=== PATIENT | female | born 1955 | race Caucasian/White ===

== ENCOUNTER → 2020-06-13 | Outpatient (CLI) | payer MEDICAID, SELFPAY | END | disposition home or self-care (01) | LOC: MTDU 06-14 13:03 | PROVIDERS: PCP Family Medicine; Referring Provider Family Medicine; Visit Provider Family Medicine | DX: Z20.828 Contact with and (suspected) exposure to other viral communicable diseases (principal) | CPT/HCPCS: 87635; C9803; U0003 ==

== ENCOUNTER 2020-10-30 17:16 | Observation (INO) | payer MEDICAID, SELFPAY ==
--- NOTE | 2020-10-24 12:29 | EKG12_ITS ---
Test Reason : PRE SURGERY Blood Pressure : / mmHG Vent. Rate : 092 BPM Atrial Rate : 092 BPM P-R Int : 150 ms QRS Dur : 108 ms QT Int : 376 ms P-R-T Axes : 072 082 078 degrees QTc Int : 464 ms Normal sinus rhythm [id number] Confirmed by RAYO FERNANDEZ, ADIS ([id number]), editorial specialist DAVID CHAPIN ([id number]) on 10/25/2020 1:53:34 PM Referred By: Jules Hess Confirmed By:ADIS CADE MD
[2020-10-24 12:31] LABS: Hematocrit 41.6 % (37-47); Hemoglobin 13.6 g/dL (12.0-15.0); Mean Corp Hgb Conc 32.7 g/dL (32-36); Mean Corpuscular Hgb 31.4 pg (27.0-32.0); Mean Corpuscular Volume 96.1 fL (81-99); Mean Platelet Vol. 8.4 fl (6.2-12.0); Platelet Count 336 K/mm3 (150-450); RBC Distribution Width CV 13.3 % (11.6-14.6); RBC Distribution Width SD 47.2 fl (35.1-43.9); Red Blood Count 4.33 M/mm3 (4.2-5.4); White Blood Count 7.4 K/mm3 (4.4-11.0)
[2020-10-24 13:23] LABS: Anion Gap 6 (5-15); BUN 14 mg/dL (7-18); BUN/Creat Ratio 16.2 RATIO (10-20); Calcium,Total 9.5 mg/dL (8.5-10.1); Chloride 106 mmol/L (98-107); Creatinine, Serum 0.86 mg/dL (0.55-1.02); EST Glomerular Filtration Rate 70 mL/min (>60); Est Glom Filt Rate - Afr Amer 85 mL/min (>60); Glucose 104 mg/dL (74-106); Potassium 3.7 mmol/L (3.5-5.1); Sodium Level 140 mmol/L (136-145)
[2020-10-30] VITALS (31 sets, daily range): BP systolic 114–174; BP diastolic 60–96; PULSE 67–91; RESP 12–20; TEMP 36.3–37.8; O2SAT 85–97; BMI 25.8
[2020-10-30] MEDS: Lactated Ringers 1,000 ML 100 ML IV ×2 (07:09→10:30)
[2020-10-30] MEDS: Lidocaine 1% /Epi 1:100 (20ml) 20 ML Vial ×2 (07:34→11:30)
[2020-10-30] MEDS: Oxymetazoline 0.05% 1 SPRAY SPRAY.BTL 15 SPRAY ×2 (07:45→09:30)
--- NOTE | 2020-10-30 08:30 | ETH_PTH ---
PATIENT: SULLY BORGES LOC: MS3 U#:[id number] AGE/SX: 65/F ROOM: ME315 RE10/30/[address]: Dr. Jj Abernathy MD : [id number] BED: 1 DIS: 10/31/2020 SPEC #: [id number] RECD: 10/30/20 13:01 STATUS: JEOVANNY DOLORES #: [id number] ABBI: 10/30/20 08:[address]: Hai Hess DEPT: SURGICAL PATHOLOGY RECD BY: Anyi Rebolledo ENTERED: 10/30/20 13:34 SP TYPE: ETH TISS OTHR DR: Dr. Vasquez Antoine MD Tissues: A - Ethmoid sinus, NOS B - Ethmoid sinus, NOS Procedures: Decalcification bone/plaque Surgery Specimen Level IV HEADER OPERATION: Open septorhinoplasty, functional endoscopic sinus surgery PRE-OP DIAGNOSIS: Chronic sinusitis, allergic rhinitis, nasal congestion, deviated nasal septum, hypertrophy of nasal turbinates TISSUE SUBMITTED: A - Right contents maxillary and ethmoid sinus, B - Left contents maxillary and ethmoid sinus MICROSCOPIC DIAGNOSIS A. Right maxillary and ethmoid sinus contents: Fragments of respiratory mucosa including turbinate with chronic inflammation and squamous metaplasia and bone. B. Left maxillary and ethmoid sinus contents: Fragments of respiratory mucosa including turbinate with chronic inflammation and bone. JOSEPH:mihcael 11/02/2020 MICROSCOPIC DESCRIPTION Slides are reviewed. GROSS DESCRIPTION A - Received in fixative is one container labeled with the patient's name and designated contents of right maxillary and ethmoid sinus. The specimen consists of multiple fragments of hemorrhagic soft tissue mixed with fragments of bone and including mucosal tissue consistent with turbinate that in aggregate measure 7.5 x 3 x 0.3 cm. The entire specimen is submitted in three cassettes after decalcification. B - Received in fixative is one container labeled with the patient's name and designated contents of left maxillary and ethmoid sinus. The specimen consists of multiple fragments of hemorrhagic soft tissue mixed with fragments of bone and including mucosal tissue consistent with turbinate that in aggregate measure 5 x 3 x 0.3 cm. The entire specimen is submitted in two cassettes after decalcification. / JOSEPH:michael 10/30/20 TC:3 CPT: 59471 x2, 02412 x2
--- NOTE | 2020-10-30 08:33 | PCM.DC ---
You will use the following diet at home:: No restrictions Your food should be the consistency of: Regular Discharge Activity: May not drive while taking narcotic pain medications. Call your doctor if your incision/area has: Increased Pain/ Swelling Additional Dressing/Incision Instructions:: irrigate your nose with saline spray [address] mupirocin ointment on your incision and in your nose twice daily. Allergies/Adverse Reactions: Allergies codeine Allergy (Verified 10/30/20 06:52) Heart Attack Sx HEART ATTACK SYMPTOMS levofloxacin [From Levaquin] Allergy (Verified 10/23/20 09:56) Anaphylaxis Penicillins [PCN] Allergy (Verified 10/23/20 09:56) Hives sulfamethoxazole [From Bactrim] Allergy (Verified 10/23/20 09:56) Anaphylaxis tetracycline Allergy (Verified 10/23/20 09:56) Vomiting trimethoprim [From Bactrim] Allergy (Verified 10/23/20 09:56) Anaphylaxis Medications to take at Discharge ALPRAZolam [Xanax] 1 mg PO TID PRN PRN 10/23/20 Albuterol Aerosols [Ventolin Aerosols] 2.5 mg INHALATION Q6HWA.RT 10/23/20 Albuterol Inhaler [Ventolin Hfa (SP)] 1 - 2 puff INHALATION Q6H PRN PRN 10/23/20 Amlodipine Besylate [Norvasc] 10 mg PO DAILY 10/23/20 Montelukast Sodium [Singulair] 10 mg PO DAILY 10/23/20 Sodium Chloride [Saline Nose [place]] 45 ml NS BID 10/23/20 cycloBENZAPRine HCl [Flexeril] 10 mg PO TID PRN PRN 10/23/20 Primary Care Physician: Vasquez Antoine MD [Primary Care Provider] - Test Results: Test results from this visit will be discussed in further detail at your follow-up appointment, if applicable. Please Follow Up With: Jules Hess MD When: 1 week
[2020-10-30] MEDS: Mupirocin Ointment 22gm Tube 1 APPLIC (09:50)
--- NOTE | 2020-10-30 12:34 | PCM.OPRPT ---
Problem List (1) Chronic pansinusitis Status: Chronic (2) Deviated nasal septum Status: Chronic (3) Nasal turbinate hypertrophy Status: Chronic (4) Nasal valve collapse Status: Chronic (5) Nasal polyps Status: Chronic Report of Operation Date of Procedure: 10/30/20 Pre-Operative Diagnosis: 1. chronic pansinusitis. 2. sinonasal polyposis. 3. nasal septal deviation. 4. aquired nasal deformity. 5. internal nasal valve collapse, right and left. 6. inferior turbinate hypertrophy, right and left Post-Operative Diagnosis: 1. chronic pansinusitis. 2. sinonasal polyposis. 3. nasal septal deviation. 4. aquired nasal deformity. 5. internal nasal valve collapse, right and left. 6. inferior turbinate hypertrophy, right and left Surgery/Procedure Performed:: 1. endoscopic maxillary antrostomy with removal of contents, right and left. 2. endoscopic total ethmoidecotmy, right and left. 3. endoscopic sphenoidotomy with removal of contents, right and left. 4. endoscopic frontal sinus exploration removal of contents, right and left. 5. open septorhinoplasty. 6. submucous resection inferior turbinates, right and left. 7. correction internal nasal valve collapse, right and left Type of Anesthesia:: General Description of Procedure: On the day of the procedure, after appropriate informed consent was obtained, the patient was brought to the operating room and placed in a supine position on the operating room table. The patient was placed under general endotracheal anesthesia by the anesthesiologist. The endotracheal tube was secured. image guidance navigation was set up on the face and accuracy was confirmed. the nose was injected with lidocaine/epinephrine and decongested with oxymetazoline-soaked pledgets. the nose was injected with 1% lidocaine with epinephrine. The face was prepped and draped in sterile fashion. An inverted-V columellar incision was made with a [place] blade. This traversed into the left and right marginal incisions in the nose. It was opened with three-point retraction and an Iris scissors. The left and right lower lateral cartilages were skeletonized. given the patient's prior operation, this was a very cumbersome dissection through extensive scarring. This was taken to the left scroll region and the left upper lateral cartilages were skeletonized as was the right scroll region and right upper lateral cartilage. the upper lateral cartilages were encased in scar. The anterior septal angle was destroyed by her prior surgery and trauma. The remainder of her septum was carefully dissected using the [place]-tip Bovie. The submucoperichondrial flaps were created with the [place] elevator, first on the left and then the right posteriorly to the bony cartilaginous junction and inferiorly to the maxillary crest. Anteriorly, the patient had a very severe left to mid septal deviation. It was nearly occluding the nasal airway. A [place] elevator was used to disarticulate the bony cartilaginous junction. A #15 blade was used to disarticulate the left and then right upper lateral cartilage which significantly destabilized the nose. A 1 cm strut was maintained off the keystone area which was still stable and the [place] elevator and a D-knife were used to remove the remainder of the septum. This was reshaped and sutured to a PDS plate and fashioned to perform an anterior septal reconstruction and saved for future use. The deviated portions of the perpendicular plate of the ethmoid bone and vomer were removed using a Geovani-Hair. The head of the right and left inferior turbinates were injected with 1% lidocaine with epinephrine. The head of the left inferior turbinate was incised with a #15 blade. This was dissected submucosally using the Lavern elevator, reduced using suction electrocautery, and outfractured using a Boies elevator. Similarly, on the right, the head of the right inferior turbinate was incised with a #15 blade. This was dissected submucosally using a Lavern elevator, reduced using suction electrocautery, and outfractured using a Boies elevator. the anterior septal reconstruction was placed as a left-sided internal tape controlled machine stitcher graft. This was sutured between the nasal septum and right upper lateral cartilage using 4-0 PDS. This was also sutured to the maxillary crest in multiple points using 4-0 PDS. Additionally, a 2 mm x 1 cm internal tape controlled machine stitcher graft was placed on the right side and sutured with 4-0 PDS. At this point, the nose was significantly re-stabilized. Multiple dermal sutures were used to refashion the nasal tip for stability to prevent collapse and a 5 mm x 2 mm columellar strut was used to prevent collapse. The submucoperichondrial flaps were closed with numerous 4-0 chromic sutures several incorporating the anterior septal reconstruction. The inverted-V columellar incision was closed with 7-0 Vicryl and the marginal incisions with interrupted 4-0 chromic. Hutson splints were placed and a dorsal nasal splint was placed. The nose was irrigated with normal saline and the table was rotated 90 degrees toward the anesthesiologist. the zero degree endoscope was used to evaluate the nasal cavity. the superior attachment of the right and left middle turbinate and uncinate processes were injected with lidocaine/epinephrine. the left nasal cavity was evaluated. the middle turbinate was medialized. this was encased in scar. a revision maxillary antrostomy and uncinectomy were performed with a lavern elevator and a katherine cut. the antrostomy was widened with a back-biter. the ethmoid bulla was entered bluntly with the suction. a total ethmoidectomy was performed with a curette and an upgoing blakesley. extensive polyps were removed from the middle meatus, maxillary sinus and sphenoethmoidal recess. this was taken superiorly to the skull base and laterally to the lamina. a stankewicz maneuver was performed and no laminar defect was noted. the natural sphenoid os was widened with the microdebrider and contents were evacuated. the frontal recess was explored and contents were evacuated. hemostasis was achieved with suction cautery; niki was placed. the right nasal cavity was evaluated. the middle turbinate was medialized. a maxillary antrostomy and uncinectomy were performed with a lavern elevator and a katherine cut. the antrostomy was widened with a back-biter. extensive polyps were removed from the middle meatus, maxillary sinus and sphenoethmoidal recess. purulent material was evacuated. the ethmoid bulla was entered bluntly with the suction. a total ethmoidectomy was performed with a curette and an upgoing blakesley. this was taken superiorly to the skull base and laterally to the lamina. a stankewicz maneuver was performed and no laminar defect was noted. the natural sphenoid os was widened with the microdebrider and contents were evacuated. fungus was removed from the sphenoethmoidal recess. the frontal recess was explored and contents were evacuated. hemostasis was achieved with suction cautery; niki was placed. hutson splints were sutured into place. a nasogastric tube was inserted orally and contents were evacuated. the table was rotated 90 degrees toward the anesthesiologist and was subsequently extubated uneventfully. he was transferred to the PACU in stable condition.
[2020-10-30] MEDS: Ipratropium/Albuterol Sulfate 3 ML AMPUL.NEB INHALATION ×3 (13:04→20:10)
--- NOTE | 2020-10-30 15:30 | RAD_ITS ---
STUDY: X-RAY CHEST REASON FOR EXAM: Female, 65 years old. LOW SPO2 TECHNIQUE: AP and lateral views of the chest. COMPARISON: None. FINDINGS: EKG electrodes are seen. Hyperinflation. Mild degree of increased markings at the lung bases likely worse on the left side. This is suggestive of a possible atelectasis superimposed on scarring. Calcified granulomas in the right upper lobe. There is no demonstrated pleural abnormality. Normal size heart. Normal mediastinum and cal. Normal visualized pulmonary arteries. Normal visualized aortic arch and descending thoracic aorta. There are diffuse degenerative changes of the visualized thoracic spine. Normal visualized ribs, clavicles, and shoulders. There is no demonstrated abnormality of the visualized soft tissue structures of the upper abdomen. RAD/Chest PA and Lateral IMPRESSION: Increased markings at the lung bases worse on the left side suggestive of bibasilar atelectasis superimposed on scarring. Electronically Signed: Gavin Srinivasna MD at 15:46 EST , Service support ,
--- NOTE | 2020-10-30 17:13 | EKG12_ITS ---
Test Reason : DYSPNEA Blood Pressure : / mmHG Vent. Rate : 068 BPM Atrial Rate : 068 BPM P-R Int : 162 ms QRS Dur : 102 ms QT Int : 422 ms P-R-T Axes : 062 026 057 degrees QTc Int : 448 ms Normal sinus rhythm Nonspecific T wave abnormality Abnormal ECG When compared with ECG of 24-OCT-2020 12:40, Nonspecific T wave abnormality now evident in Inferior leads Nonspecific T wave abnormality, worse in Anterior leads Confirmed by CAROL FERNANDEZ, BRITTANY ([id number]), editorial writer JOSEPH BOBBY ([id number]) on 10/31/2020 12:55:45 P M Referred By: Jules Hess Confirmed By:LASHONDA MEDINA MD
--- NOTE | 2020-10-30 17:20 | PCM.HP.STD ---
Problem List (1) Hypoxia Status: Acute (2) COPD (chronic obstructive pulmonary disease) Status: Chronic (3) Chronic anxiety Status: Chronic (4) Hypertension Status: Chronic (5) Chronic pansinusitis Status: Chronic (6) Deviated nasal septum Status: Chronic History of Present Illness Date of Admission: 10/30/20 Chief Complaint: Low pulse ox. The patient is a 65 year old F with past medical history as mentioned above underwent elective maxillary antrostomy, endoscopic total ethmoidectomy, sphenoidotomy with septal rhinoplasty for chronic pansinusitis and deviated nasal symptom and after surgery, she had hypoxia with pulse ox of mid 80s and she required up to 4 L of oxygen. At this time, patient is alert and oriented, awake. She denied any worsening shortness of breath. She stated that she does have history of COPD, has been using inhalers at home but she is not on home oxygen. She reported chronic intermittent mild cough with sinus drainage but nothing acute. She denies fever or chills. She history of hypertension and she has been on Norvasc and her blood pressure has been under control. She will history of anxiety and she has been on Xanax. She will history of COPD as above, has been on albuterol inhalers but not on home oxygen. At this time, her vital signs are stable except hypoxia, pulse ox is 94% on 4 L. Preoperative routine blood work that was done on October 24, 2020 reviewed and was unremarkable. She is being admitted for observation for postoperative hypoxia. Past Medical History Past Medical History (Chronic Problems): Chronic Problems COPD (chronic obstructive pulmonary disease) (Chronic) Chronic anxiety (Chronic) Hypertension (Chronic) Chronic pansinusitis (Chronic) Deviated nasal septum (Chronic) Nasal turbinate hypertrophy (Chronic) Nasal valve collapse (Chronic) Nasal polyps (Chronic) Allergies codeine Allergy (Verified 10/30/20 06:52) Heart Attack Sx HEART ATTACK SYMPTOMS levofloxacin [From Levaquin] Allergy (Verified 10/23/20 09:56) Anaphylaxis Penicillins [PCN] Allergy (Verified 10/23/20 09:56) Hives sulfamethoxazole [From Bactrim] Allergy (Verified 10/23/20 09:56) Anaphylaxis tetracycline Allergy (Verified 10/23/20 09:56) Vomiting trimethoprim [From Bactrim] Allergy (Verified 10/23/20 09:56) Anaphylaxis Home Medications: Ambulatory Orders Medication Instructions Recorded ALPRAZolam [Xanax] 1 mg PO TID PRN PRN 10/23/20 Albuterol Aerosols [Ventolin 2.5 mg INHALATION Q6HWA.RT 10/23/20 Aerosols] Albuterol Inhaler [Ventolin Hfa 1 - 2 puff INHALATION Q6H PRN PRN 10/23/20 (SP)] Amlodipine Besylate [Norvasc] 10 mg PO DAILY 10/23/20 Montelukast Sodium [Singulair] 10 mg PO DAILY 10/23/20 Sodium Chloride [Saline Nose [place]] 45 ml NS BID 10/23/20 cycloBENZAPRine HCl [Flexeril] 10 mg PO TID PRN PRN 10/23/20 Surgical History: tonsillectomy, - - Surgery for fractured hip. 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 Lives: Spouse/ Significant Other Smoking Status: Current every day smoker Tobacco Use: Cigarettes Alcohol: Occasional Drugs: None - *Family History Maternal History Items: No pertinent history Paternal History Items: No pertinent history Review of Systems Constitutional: Denies: Anorexia, Chills, Fever, Malaise, Weakness Eyes: Denies: Blurred vision, Conjunctivae Inflammation, Double vision, Drainage, Redness HEENT: Denies: Difficulty Hearing, Ear Pain, Eye Pain, Nasal Congestion, Sore Throat Cardiovascular: Denies: Chest Pain, Claudication, Chest Pressure, Chest Tightness, Edema, Heaviness, Palpitations, Paroxysmal Noc. Dyspnea, Syncope Respiratory: Reports: Cough. Denies: Pleuritic Pain, Shortness of Breath, Sputum production, Wheezing Gastrointestinal: Denies: Abdominal Pain, Constipation, Diarrhea, Nausea, Vomiting Genitourinary: Denies: Dysuria, Frequency, Hematuria Musculoskeletal: Denies: Arm Pain, Back Pain, Foot Pain Skin: Denies: Dryness, Rash Neurological: Denies: Balance problems, Blurred vision, Double vision, Change in Speech, Slurred speech, Focal weakness, Headaches, Incoordination Psychiatric: Reports: Anxiety. Denies: Depression Endocrine: Denies: Change in Body Habitus, Polydipsia, Polyuria VTE Information - Inpt Only VTE Present on Admission: No VTE Mechan Device Prophylaxis: None VTE Pharm Prophylaxis ordered?: Yes - Physical Exam Vitals/I&O's: Vital Signs Temp Pulse Resp BP Pulse Ox 97.4 F L 88 16 114/80 94 10/30/20 17:00 10/30/20 17:15 10/30/20 17:15 10/30/20 17:15 10/30/20 17:15 Oxygen Flow Rate (L/min) 4 Oxygen Delivery Method Simple Mask Weight: 165 lb 2.02 oz Body Mass Index (BMI) 25.8 Intake and Output for Last 24 Hours 10/28/20 10/29/20 10/30/20 23:59 23:59 23:59 Intake Total 106 / 106 Balance 106 / 106 General: Alert, Oriented x3, Cooperative, No apparent distress HEENT: Atraumatic, PERRLA, EOMI, Normocephalic Oral: Moist Mucosa, No Gingival or Mucosal Lesions/ Ulcerations Neck: Supple, No JVD, Negative Carotid Bruits, Trachea Midline, Thyroid Normal Size and Texture Lungs: Clear to auscultation, Normal air movement, No rhonchi, No wheeze, No rales, Diminished Cardiovascular: Regular rate, Regular Rhythm, Normal S1, Normal S2, PMI Normal Abdomen: Bowel Sounds Present, Soft, Non Tender, Non-Distended, No Hepato-splenomegaly Extremities: No clubbing, No cyanosis, No edema Skin: No rashes, No breakdown Lymphatic: No Cervical, Supraclavicular, or Inguinal Adenopathy Neurological: Cranial nerves II-XII grossly intact, Motor Exam 5/5 strength throughout Psych/Mental Status: Normal Affect, Appropriate, Alert and oriented to time, place, person, mood and affect Microbiology Past 72 Hours 10/29/20 10:40 Interface Orders SARS-CoV-2 Antigen (Rapid) - Final Current Medications Hydrocodone Bitart/Acetaminophen (Hydrocodone Bitartrate/Apap 5/325 Tablet) 1 tablet PO Q6H PRN PRN PRN Reason: Pain Score 1-10 Lactated Ringer's () 1,000 mls @ 100 mls/hr IV .Q10H ZAIDA Last Admin: 10/30/20 07:09 Dose: 100 mls/hr Documented by: Assessment/Plan All Active Problems Hypoxia (Acute) This is a 65 years old female patient underwent elective sinus surgery today, developed hypoxia postoperatively and she is being admitted for observation. #1 postoperative hypoxia: Likely because of anesthesia and fluid that he received. She does have COPD but not on home oxygen. Chest x-ray today showed no acute findings. Currently, she is on 5 L. Plan: Admit to [facility] floor, telemetry, routine EKG, IV Lasix 20 mg x 1, DuoNeb every 6 hours, albuterol as needed, incentive spirometer, CBC and BMP tomorrow morning. #2 status post endoscopic maxillary antrostomy, endoscopic total ethmoidectomy, sphenoidotomy and open septorhinoplasty: This was done for chronic sinusitis and deviated nasal septum. ENT will be following. Plan for OxyIR as needed for pain. #3 hypertension: Blood pressure stable, continue Norvasc. #4 anxiety: Continue Xanax as needed. #5 DVT prophylaxis consult Lovenox. This note was generated with [employer] dictation software. It may contain incorrect words, spelling, and punctuation that were not noted in checking the note before signing. OBSV E&M: [id number] Initial observation care L2
[2020-10-30] MEDS: HYDROcodone Bitartrate/Apap 5/325 Tablet PO (18:02)
[2020-10-30] MEDS: Furosemide 20 MG/2 ML VIAL IV (19:51)
[2020-10-30] MEDS: 0.9% Saline Lock 10 ML Syringe IV (19:52)
[2020-10-30] MEDS: Montelukast 10 MG Tablet PO (20:04)
[2020-10-30] MEDS: ALPRAZolam 0.5 MG Tablet 1 MG PO (22:35)
[2020-10-31] VITALS (17 sets, daily range): BP systolic 134–149; BP diastolic 60–87; PULSE 70–91; RESP 16–20; TEMP 36.6–37.1; O2SAT 86–94
[2020-10-31] MEDS: Ipratropium/Albuterol Sulfate 3 ML AMPUL.NEB INHALATION ×4 (01:21→14:14)
[2020-10-31] MEDS: oxyCODONE 5 MG Tablet PO ×3 (01:41→15:29)
[2020-10-31 06:37] LABS: Absolute Lymphocyte Count 2.04 X10^3/uL (0.83-4.51); Absolute Neutrophil Count 6.7 X10^3/uL (2.0-7.7); Basophil# 0.01 X10^3/uL; Basophil% 0.1 % (0-1); Hematocrit 42.2 % (37-47); Hemoglobin 13.4 g/dL (12.0-15.0); Lymphocyte # 2.04 X10^3/ul (4.0); Lymphocyte % 21.2 % (19-41); Mean Corp Hgb Conc 31.8 g/dL (32-36); Mean Corpuscular Hgb 31.1 pg (27.0-32.0); Mean Corpuscular Volume 97.9 fL (81-99); Mean Platelet Vol. 8.4 fl (6.2-12.0); Monocyte# 0.86 X10^3/uL; Monocyte% 8.9 % (0-10); NRBC Flagged by Analyzer 0 % (0-5); Neutrophil # 6.66 X10^3/uL (2.7-7.7); Neutrophil % 69.3 % (47-70); Platelet Count 348 K/mm3 (150-450); RBC Distribution Width CV 13.2 % (11.6-14.6); RBC Distribution Width SD 48.2 fl (35.1-43.9); Red Blood Count 4.31 M/mm3 (4.2-5.4); White Blood Count 9.6 K/mm3 (4.4-11.0)
[2020-10-31 07:04] LABS: Anion Gap 6 (5-15); BUN 14 mg/dL (7-18); BUN/Creat Ratio 16.9 RATIO (10-20); Chloride 104 mmol/L (98-107); Creatinine, Serum 0.83 mg/dL (0.55-1.02); EST Glomerular Filtration Rate 74 mL/min (>60); Est Glom Filt Rate - Afr Amer 89 mL/min (>60); Estimated Creatinine Clearance 67.47 ml/min; Glucose 119 mg/dL (74-106); Sodium Level 137 mmol/L (136-145)
[2020-10-31] MEDS: amLODIPine 10 MG Tablet PO (08:15)
[2020-10-31] MEDS: Senna/Docusate Sodium 1 Tablet 2 TABLET PO (08:19)
--- NOTE | 2020-10-31 09:38 | DCINST_ITS ---
- Discharge Diagnoses Current Active Problems: Current Active and Chronic Problems Hypoxia (Acute) COPD (chronic obstructive pulmonary disease) (Chronic) Chronic anxiety (Chronic) Hypertension (Chronic) Chronic pansinusitis (Chronic) Deviated nasal septum (Chronic) Nasal turbinate hypertrophy (Chronic) Nasal valve collapse (Chronic) Nasal polyps (Chronic) You will use the following diet at home:: Regular Discharge Activity: May not drive while taking narcotic pain medications. Weight Bearing Status: Weight bearing as tolerated Call your doctor if your incision/area has: Increased Pain/ Swelling Additional Dressing/Incision Instructions:: irrigate your nose with saline spray [address] mupirocin ointment on your incision and in your nose twice daily. Additional Instructions: Irrigate your nose with saline spray [address] mupirocin ointment on your incision and in your nose twice daily. keep the bridge of your nose dry. however, the morning of your follow up appointment, get your entire nose very wet so the cast comes off in the office easily. sleep with the head of bed elevated. Allergies/Adverse Reactions: Allergies codeine Allergy (Verified 10/30/20 06:52) Heart Attack Sx HEART ATTACK SYMPTOMS levofloxacin [From Levaquin] Allergy (Verified 10/23/20 09:56) Anaphylaxis Penicillins [PCN] Allergy (Verified 10/23/20 09:56) Hives sulfamethoxazole [From Bactrim] Allergy (Verified 10/23/20 09:56) Anaphylaxis tetracycline Allergy (Verified 10/23/20 09:56) Vomiting trimethoprim [From Bactrim] Allergy (Verified 10/23/20 09:56) Anaphylaxis Medications to take at Discharge ALPRAZolam [Xanax] 1 mg PO TID PRN PRN 10/23/20 Albuterol Aerosols [Ventolin Aerosols] 2.5 mg INHALATION Q6HWA.RT 10/23/20 Albuterol Inhaler [Ventolin Hfa] 1 - 2 puff INHALATION Q6H PRN PRN 10/23/20 Amlodipine Besylate [Norvasc] 10 mg PO DAILY 10/23/20 Montelukast Sodium [Singulair] 10 mg PO DAILY 10/23/20 Sodium Chloride [Saline Nose [place]] 45 ml NS BID 10/23/20 cycloBENZAPRine HCl [Flexeril] 10 mg PO TID PRN PRN 10/23/20 Primary Care Physician: Vasquez Antoine MD [Primary Care Provider] - Test Results: Test results from this visit will be discussed in further detail at your follow- up appointment, if applicable. Please Follow Up With: Jules Hess MD When: 1 week
[2020-10-31] MEDS: Enoxaparin 40 MG/0.4 ML Syringe SC (10:06)
--- NOTE | 2020-10-31 11:38 | DS.PCM_ITS ---
Discharge Date and Diagnosis - Problem List Patient Problems: Active and Suspected Problems Hypoxia (Acute) Date of Admission: 10/30/20 Date of Discharge: 10/31/20 - Primary Discharge Diagnosis Acute Problems: Active Problems Hypoxia (Acute) - Secondary Discharge Diagnosis Chronic Problems: Chronic Problems COPD (chronic obstructive pulmonary disease) (Chronic) Chronic anxiety (Chronic) Hypertension (Chronic) Chronic pansinusitis (Chronic) Deviated nasal septum (Chronic) Nasal turbinate hypertrophy (Chronic) Nasal valve collapse (Chronic) Nasal polyps (Chronic) Hospital Course and Treatment Summary of Care Provided: [] This is a 65 years old female patient underwent elective sinus surgery today, developed hypoxia postoperatively and she is being admitted for observation. Patient not on home oxygen. Postop hypoxia was thought to be due to anesthesia and possible fluid overload although chest x-ray not show acute finding. Patient was on 5 L and gradually titrated down to 92% on room air. On ambulation her oxygen dropped to 86% on room air, 92% on 2 L oxygen. Patient is ambulatory in home and in the community and requires home oxygen with portability. Discharge medication reconciliation done. Discharge follow-up instructions completed. Discharge process discussed with the patient and all questions were answered to patient's satisfaction. Total time spent, exact 35 minutes on discharge meds reconciliation, examination, coordination of care with nurses and ancillary staff, review of imaging and blood test and discussion with the patient on follow-up instructions 2 L of oxygen on ambulation. Patient had endoscopic maxillary antrostomy, endoscopic total ethmoidectomy, sphenoidotomy and open septorhinoplasty: This was done for chronic sinusitis and deviated nasal septum. Discussed with ENT Dr. Crawford. She had Percocet a prescription given by name. Other comorbidities include hypertension, anxiety: Blood pressure and heart rate in normal range. Discharge medication reconciliation done. Discharge follow-up instructions completed. Discharge process discussed with the patient and all questions were answered to patient's satisfaction. Total time spent, exact 35 minutes on discharge meds reconciliation, examination, coordination of care with nurses and ancillary staff, review of imaging and blood test and discussion with the patient on follow-up instructions Patient Problems: Active and Suspected Problems Hypoxia (Acute) Objective: Seen and examined. Patient had sinus surgery yesterday. Patient has known history of COPD and is on albuterol inhaler and nebulization at home along with maintenance inhaler. Patient was admitted after found hypoxia. Physical exam General: Alert, Oriented x3, Cooperative HEENT: Nasal packing is dry and intact. No obvious signs of hematoma over bridge of nose. Atraumatic, PERRLA, EOMI, Normocephalic Oral: No Gingival or Mucosal Lesions/ Ulcerations Neck: Supple, No JVD, Negative Carotid Bruits Lungs: Air entry diminished in bilateral lung bases. No crepitation/rhonchi Cardiovascular: Regular rate, Regular Rhythm, Normal S1, Normal S2, No murmurs Abdomen: Bowel Sounds Present, Soft, Non Tender, Non-Distended : No renal angle tenderness. No suprapubic tenderness. Extremities: No edema, Capillary Refill Less than 3 Seconds Skin: No rashes, No breakdown Musculoskeletal: No Tenderness to Palpation of Joints or Extremities Neurological: Cranial nerves II-XII grossly intact, Deep Tendon Reflexes 2+/4 and Symmetrical, Neuro grossly intact Psych/Mental Status: Normal Affect, Appropriate. - Physical Exam Vitals/I&O's: Vital Signs Temp Pulse Resp BP Pulse Ox 98.5 F 83 18 135/87 H 92 10/31/20 04:15 10/31/20 04:15 10/31/20 04:15 10/31/20 04:15 10/31/20 04:15 Oxygen Flow Rate (L/min) 3 Oxygen Delivery Method Venturi Mask Weight: 165 lb 2.02 oz Body Mass Index (BMI) 25.8 Intake and Output for Last 24 Hours 10/29/20 10/30/20 10/31/20 23:59 23:59 23:59 Intake Total 2079.33 / 2329.33 670 / 670 Output Total 2600 / 2600 Balance 2079.33 / 929.33 -1930 / -1930 Microbiology Past 72 Hours 10/29/20 10:40 Interface Orders SARS-CoV-2 Antigen (Rapid) - Final Laboratory Results 10/31/20 06:00: WBC 9.6, RBC 4.31, Hgb 13.4, Hct 42.2, MCV 97.9, MCH 31.1, MCHC 31.8 L, RDW Std Deviation 48.2 H, RDW Coeff of Juan 13.2, Plt Count 348, MPV 8.4, Immature Gran % (Auto) 0.500, Neut % (Auto) 69.3, Lymph % (Auto) 21.2, Dorado % (Auto) 8.9, Eos % (Auto) 0.0, Baso % (Auto) 0.1, Absolute Neuts (auto) 6.7, Absolute Lymphs (auto) 2.04, Nucleated RBC % 0 10/31/20 06:00: Sodium 137, Potassium 4.0, Chloride 104, Carbon Dioxide 27.0, Anion Gap 6, BUN 14, Creatinine 0.83, Estim Creat Clear Calc 67.47, Est GFR (MDRD) Af Amer 89, Est GFR (MDRD) Non-Af 74, BUN/Creatinine Ratio 16.9, Glucose 119 H, Calcium 9.0 Current Medications Acetaminophen (Acetaminophen 325 Mg Tablet) 650 mg PO Q6H PRN PRN PRN Reason: Pain Score 1-10/Temp > 100.7 F Albuterol Sulfate (Albuterol 2.5 Mg/3 Ml Vial.Neb.) 2.5 mg INHALATION Q2H PRN PRN PRN Reason: Shortness of breath, wheezing Albuterol/Ipratropium (Ipratropium/Albuterol Sulfate 3 Ml Ampul.Neb) 3 ml INHALATION Q6H.RT [facility] Last Admin: 10/31/20 06:54 Dose: 3 ml Documented by: Alprazolam (Alprazolam 0.5 Mg Tablet) 1 mg PO TID PRN PRN PRN Reason: ANXIETY Last Admin: 10/30/20 22:35 Dose: 1 mg Documented by: Amlodipine Besylate (Amlodipine 10 Mg Tablet) 10 mg PO DAILY [facility] Cyclobenzaprine HCl (Cyclobenzaprine Hcl 10 Mg Tablet) 10 mg PO TID PRN PRN PRN Reason: MUSCLE SPASMS Enoxaparin Sodium (Enoxaparin 40 Mg/0.4 Ml Syringe) 40 mg SC DAILY ZAIDA Sodium Chloride () 250 mls @ 15 mls/hr IV .[id number] PRN PRN Reason: Saline Flush Sodium Chloride () 250 mls @ 15 mls/hr IV .[id number] PRN PRN Reason: Additional IVPB Infusion Montelukast Sodium (Montelukast 10 Mg Tablet) 10 mg PO QPM [facility] Last Admin: 10/30/20 20:04 Dose: 10 mg Documented by: Ondansetron HCl (Ondansetron 4 Mg/2 Ml Vial) 4 mg IV Q8H PRN PRN PRN Reason: NAUSEA/VOMITING Oxycodone HCl (Oxycodone 5 Mg Tablet) 5 mg PO Q6H PRN PRN PRN Reason: Pain Score 4-5 Last Admin: 10/31/20 01:41 Dose: 5 mg Documented by: Senna/Docusate Sodium (Senna/Docusate Sodium 1 Tablet) 2 tablet PO BID PRN PRN PRN Reason: Constipation Sodium Chloride (0.9% Saline Lock 10 Ml Syringe) 10 - 40 ml IV UD PRN PRN Reason: SALINE FLUSH Last Admin: 10/30/20 19:52 Dose: 10 ml Documented by: Zolpidem Tartrate (Zolpidem Tartrate 5 Mg Tablet) 5 mg PO QHS PRN PRN PRN Reason: INSOMNIA Discharge Activity: May not drive while taking narcotic pain medications. Call your doctor if your incision/area has: Increased Pain/ Swelling Additional Dressing/Incision Instructions:: irrigate your nose with saline spray [address] mupirocin ointment on your incision and in your nose twice daily. Home Medications: Medications to take at Discharge ALPRAZolam [Xanax] 1 mg PO TID PRN PRN 10/23/20 Albuterol Aerosols [Ventolin Aerosols] 2.5 mg INHALATION Q6HWA.RT 10/23/20 Albuterol Inhaler [Ventolin Hfa] 1 - 2 puff INHALATION Q6H PRN PRN 10/23/20 Amlodipine Besylate [Norvasc] 10 mg PO DAILY 10/23/20 Montelukast Sodium [Singulair] 10 mg PO DAILY 10/23/20 Sodium Chloride [Saline Nose Hawks] 45 ml NS BID 10/23/20 cycloBENZAPRine HCl [Flexeril] 10 mg PO TID PRN PRN 10/23/20 Primary Care Physician: Vasquez Antoine MD [Primary Care Provider] - Please Follow Up With: Jules Hess MD When: 1 week Medical Necessity - Tobacco Use Smoking Status: Current every day smoker Tobacco Use: Cigarettes Meaningful Use Info Meaningful Use Diagnoses (Choose all that apply): None applicable OBSV E&M: 75410 Observation care discharge
--- NOTE | 2020-10-31 12:32 | NURSING ---
in to check on patient. pt with 2lnc ventimask back on. pt states he heard a beeping in the room so she put in back on. Lunch at bedside. pt instructed she may remove o2 and eat. cspo2 maintained. instructed to let nurse know when she is done eating so we can do walking o2 trial
--- NOTE | 2020-10-31 14:05 | CASEMGMT ---
Addendum entered by Michelle Gonzales 10/31/20 14:42: [employer] called and stated they are not in network with pt insurance. Pt updated that [employer] is out of network. [employer] is preferred DME for [facility] Medicaid. Pt agreeable. Referral sent. Original Note: ELIZABETH OQUENDO updated that pt qualified for home O2. RX received for home O2. ELIZABETH OQUENDO in to discuss DME companies with pt. Pt provided with list of DME providers in network with insurance. Pt's preferred provider is [employer]. ELIZABETH OQUENDO sent referral to [employer] and arranged for O2 tank to be delivered to pts room prior to dc.
[2020-10-31] MEDS: ALPRAZolam 0.5 MG Tablet 1 MG PO (15:30)
--- NOTE | 2020-10-31 15:37 | CASEMGMT ---
Late Entry: ELIZABETH OQUENDO called [employer] to verify request for portable oxygen to be delivered. Rep at [employer] verified order received and address of [facility] and patient's room number. Rep paged dispatch for estimated delivery but no answer. ELIZABETH OQUENDO gave [facility] unit phone number to call with update. ELIZABETH OQUENDO updated floor nurse.
--- NOTE | 2020-10-31 17:37 | NURSING ---
continue to wait O2 to be delivered to patient. aware per patient she recieved a phone call from [employer] stating they were delivering to the patients house but asking about it being delivered to the hospital as earlier discussed. cm notes reviewed. phone call placed to [employer] as obtained from patient's dc papers provided by cm, as [phone]. vm left requesting return call. called phone number obtained from patient of number that called her about delivering to the patients house. left requesting return call. attempted to call social workers and case sealer, unavailable at this time. charge nurse aware
== END 2020-10-31 18:25 | disposition home or self-care (01) ==
LOC: SDC 17:43 → MS3 17:43
PROVIDERS: Anesthesiology; Admitting Provider Hospitalist; PCP Family Medicine; Referring Provider Otolaryngology; Visit Provider Internal Medicine
PROC: (CPT 30520; principal; 2020-10-30 08:00)
DX: R09.02 Hypoxemia (principal); J32.4 Chronic pansinusitis; J34.2 Deviated nasal septum; J34.3 Hypertrophy of nasal turbinates; M95.0 Acquired deformity of nose; F41.9 Anxiety disorder, unspecified; J33.8 Other polyp of sinus; J44.9 Chronic obstructive pulmonary disease, unspecified; M06.9 Rheumatoid arthritis, unspecified; I10 Essential (primary) hypertension; Z20.828 Contact with and (suspected) exposure to other viral communicable diseases; Z79.899 Other long term (current) drug therapy; F17.210 Nicotine dependence, cigarettes, uncomplicated; R94.31 Abnormal electrocardiogram [ECG] [EKG]
CPT/HCPCS: 00160; 30520; 31259; 31267; 31276; 36415; 71046; 80048; 85025; 85027; 87426; 88305; 88311; 93005; 94640; 94667; 94668; 96361; 96372; 96374; 99218; 99251; 99406; C9803; J7120; A4216; G0378; G0379; G0463; J1940; J2405

== ENCOUNTER → 2021-01-21 14:54 | Outpatient (CLI) | payer MEDICAID, SELFPAY ==
[2021-01-16 05:48] VITALS: BMI 26.6
--- NOTE | 2021-01-21 14:57 | CT_ITS ---
STUDY: LOW DOSE CT LUNG CANCER SCREENING REASON FOR EXAM: Female, 65 years old. History of smoking one half pack per day x40 years RADIATION DOSAGE (If Supplied By Facility): CTDIvol = ( 3.02 ) mGy, DLP = ( 95.15 ) mGycm TECHNIQUE: No contrast was administered. Low dose technique was utilized (average mAS-38 and kVp 120). 1.25 mm axial source images with a slice interval of 1.25-mm were reconstructed in lung windows. 2.5 mm axial source images with a slice interval of 2.5-mm were reconstructed in lung windows. 5.0 mm axial source images with a slice interval of 5.0-mm were reconstructed in soft tissue windows. Nodule measured using lung windows on PACS and/or independent workstation with automated measurement of minimum and maximum diameter. Nodule measurement reported as average diameter rounded to the nearest whole number. Growth is defined as an increase ins size of greater than 1.5 mm. COMPARISON: Previous chest x-ray There is significant underlying emphysema. There is a 0.8 cm spiculated nodule in the right apex but this could also represent scarring due to the underlying atelectasis. No other suspicious noncalcified mass or nodule noted. There are scattered calcified granulomata in both lung valero with linear fibrotic scarring in the lung bases and diffuse nonspecific bilateral pleural thickening. There is no organized infiltrate or effusion. There are calcified coronary vessels. Degenerative bony changes noted. CT/Low Dose CT Lung Screening IMPRESSION: Lung-RADS category 3 - Continue screening with LDCT in 6 months. IMPORTANT NOTES FOR USE: ACR Lung-RADS Version 1.1 Assessment Categories Release Date: 2018 Category: Coded 0-4 bases on nodule(s) with highest degree of suspicion. Negative screen is defined as categories 1 and 2; a positive screen is defined as categories 3 and 4. Category 3 and 4A nodules that are unchanged on interval CT should be coded as category 2, and individuals returned to screening in 12 months. Category 4X: Category 3 or 4 nodules with additional imaging findings that increase the suspicion of lung cancer, such as spiculation, GGN that doubles in size in 1 year, enlarged lymph notes, etc. Category Modifiers: S (significant finding unrelated to lung cancer) Electronically Signed: Chavo Toledo MD at 9:43 EDT , Service support ,
== END ==
PROVIDERS: PCP Family Medicine; Referring Provider Internal Medicine Critical Care Medicine; Visit Provider Internal Medicine Critical Care Medicine
DX: F17.210 Nicotine dependence, cigarettes, uncomplicated (principal)
CPT/HCPCS: 71271

== ENCOUNTER → 2021-02-14 08:35 | Outpatient (CLI) | payer MEDICAID, SELFPAY ==
[2021-01-16 05:48] VITALS: BMI 26.6
--- NOTE | 2021-02-14 14:22 | PFTCOMP ---
COMPLETE PULMONARY FUNCTION TEST INTERPRETATION Brief HPI: Patient is a 65 year old female, currently under the care of Dr. Issa, who presents to [facility] for complete pulmonary function tests secondary to diagnosis of COPD. Respiratory therapist reports good effort and reproducible results. Interpretation: Forced expiration spirometry shows a mild large airways obstructive ventilatory defect with an FEV1 of 70% predicted. There is a significant bronchodilator response in FVC and FEV1 by strict ATS criteria. Spirograms are of good quality and plateau slowly, indicating slowly emptying areas of the lungs. The respiratory flow volume loop shows decreased expiratory flow rates at all lung volumes consistent with airway obstruction. Lung volumes by body plethysmography show an elevated total lung capacity at 6.58 L, 120% predicted. FRC and RV are elevated out of proportion. Lung volume measurements are consistent with hyperinflation and air-trapping. Diffusion capacity by carbon monoxide is decreased at 62% predicted. The airway resistance is elevated. No previous pulmonary function tests were available for review. Impression: Partially reversible mild large airways obstructive ventilatory defect with a symmetric reduction in diffusing capacity, in a pattern consistent with COPD/asthma overlap syndrome.
== END ==
PROVIDERS: PCP Family Medicine; Referring Provider Internal Medicine Critical Care Medicine; Visit Provider Internal Medicine Critical Care Medicine
DX: J44.9 Chronic obstructive pulmonary disease, unspecified (principal)
CPT/HCPCS: 94060; 94726; 94729

== ENCOUNTER → 2021-02-21 08:15 | Outpatient (CLI) | payer MEDICAID, SELFPAY ==
[2021-01-16 05:48] VITALS: BMI 26.6
[2021-02-21 08:15] VITALS: PULSE 101; PULSE 108; PULSE 109; PULSE 111; PULSE 112; PULSE 113; PULSE 88; O2SAT 90; O2SAT 91; O2SAT 93; O2SAT 94
--- NOTE | 2021-02-22 08:15 | WT_ITS ---
PSN 6 Minute Walk Test 6 Minute Walk Test 6 Minute Walk Test: 6 Minute Walk Test PSN:6-Minute Walk Test Start: 02/21/21 08:35 Freq: Status: Active Protocol: [id number] Document 02/21/21 08:15 ZOEY (Rec: 02/21/21 08:39 [id number]) 6 Minute Walk Test Date Performed 02/21/21 Time Performed 08:15 Height 5 ft 7 in Weight: 165 lb Weight in Pounds 165.[address]: Trevor Issa Assistive device used: None Pre-test Oxygen Delivery Method Room Air Pulse Ox (%) 94 Pulse Rate (60-100 beats/min) 88 Dyspnea Emily Scale (0-10) 0.5 Exertion Emily Scale (6-20) 6 1st minute Oxygen Delivery Method Room Air Pulse Ox (%) 90 Pulse Rate (60-100 beats/min) 101 H 2nd minute Oxygen Delivery Method Room Air Pulse Ox (%) 90 Pulse Rate (60-100 beats/min) 109 H 3rd minute Oxygen Delivery Method Room Air Pulse Ox (%) 90 Pulse Rate (60-100 beats/min) 108 H 4th minute Oxygen Delivery Method Room Air Pulse Ox (%) 90 Pulse Rate (60-100 beats/min) 113 H 5th minute Oxygen Delivery Method Room Air Pulse Ox (%) 91 Pulse Rate (60-100 beats/min) 112 H 6th minute Oxygen Delivery Method Room Air Pulse Ox (%) 90 Pulse Rate (60-100 beats/min) 111 H Dyspnea Emily Scale (0-10) 2 Exertion Emily Scale (6-20) 12 Post-test Oxygen Delivery Method Room Air Pulse Ox (%) 93 Pulse Rate (60-100 beats/min) 88 Full Laps Walked 12 Partial Lap, Number of Tiles Walked 10 Total Distance Walked (ft) 718 Interpretation Interpretation: The patient ambulated 718 feet over the course of 6 minutes beginning on room air without assistive devices. Pretesting oxygen saturation was noted to be 94% on room air. With ambulation, the dannie oxygen saturation w as 90%. This represents a significant exertional oxygen desaturation. Recommendations Recommendations: There is no indication for the use of supplemental oxygen at this time. However, close interval follow-up is recommended, given the degree of oxygen desaturation noted during this study.
== END ==
PROVIDERS: PCP Family Medicine; Referring Provider Internal Medicine Critical Care Medicine; Visit Provider Internal Medicine Critical Care Medicine
DX: J44.9 Chronic obstructive pulmonary disease, unspecified (principal)
CPT/HCPCS: 94618

== ENCOUNTER → 2021-07-04 | Outpatient (CLI) | payer MEDICAID, SELFPAY | END | disposition home or self-care (01) | PROVIDERS: PCP Family Medicine; Referring Provider Otolaryngology; Visit Provider Otolaryngology | DX: J32.9 Chronic sinusitis, unspecified (principal); Z11.52 Encounter for screening for COVID-19 | CPT/HCPCS: 87070; 87205; 87635; U0005; U0003 ==

== ENCOUNTER 2021-09-25 12:55 | Outpatient (CLI) | payer MEDICAID, SELFPAY ==
--- NOTE | 2021-09-25 12:58 | CT_ITS ---
STUDY: CT CHEST WITHOUT CONTRAST REASON FOR EXAM: Female, 66 years old. Follow known nodule, pt missed last scheduled CT RADIATION DOSAGE (If Supplied By Facility): CTDIvol = ( 7.41 ) mGy, DLP = ( 266.91 ) mGycm TECHNIQUE: Transaxial imaging was performed without the administration of intravenous contrast material. Multiplanar coronal and sagittal images were reformatted. Individualized dose optimization techniques were used for this CT. COMPARISON: Comparison is made with prior examination dated 01/21/2021. FINDINGS: Stable fibrocalcific scarring in the medial aspect of the left lung apex. Stable 6.8 mm calcified granuloma in the posterior aspect of the right upper lobe abutting the minor fissure. Stable calcified granulomas in the right lung. Hyperinflation. Diffuse emphysematous changes worse in the upper lobes. There are calcifications of the coronary arteries. There are multiple small lymph nodes within the mediastinum, which are normal in size and morphology most compatible with reactive lymph hyperplasia. Normal hilar regions. Normal unenhanced pulmonary arteries. There is atherosclerotic calcification of the aortic arch . There are degenerative changes of the thoracic spine. There is no demonstrated abnormality of the visualized upper abdomen. CT/Chest without Contrast IMPRESSION: Diffuse emphysematous changes and hyperinflation. Stable fibrocalcific scarring in the posterior medial aspect of the left upper lobe. Electronically Signed: Gavin Srinivasan MD at 14:02 EST , Service support ,
== END 2021-09-25 23:59 | disposition short-term general hospital (02) ==
LOC: CT 12:57
PROVIDERS: PCP Family Medicine; Referring Provider Nurse Practitioner Acute Care; Visit Provider Nurse Practitioner Acute Care
DX: R91.1 Solitary pulmonary nodule (principal)
CPT/HCPCS: 71250

== ENCOUNTER → 2022-10-28 | Outpatient (CLI) | payer MEDICARE, MEDICAID, SELFPAY ==
--- NOTE | 2022-10-28 13:07 | CT_ITS ---
STUDY: LOW DOSE CT LUNG CANCER SCREENING REASON FOR EXAM: Female, 67 years old. Current smoker 1/2 ppd, and gt; 40 pack years RADIATION DOSAGE (If Supplied By Facility): CTDIvol = ( 2.01 ) mGy, DLP = ( 71.23 ) mGycm TECHNIQUE: No contrast was administered. Low dose technique was utilized (average mAS-38 and kVp 120). 1.25 mm axial source images with a slice interval of 1.25-mm were reconstructed in lung windows. 2.5 mm axial source images with a slice interval of 2.5-mm were reconstructed in lung windows. 5.0 mm axial source images with a slice interval of 5.0-mm were reconstructed in soft tissue windows. COMPARISON: Comparison is made with prior study dated 09/25/2021. NODULES: No suspicious nodules are seen. Small scattered calcified granulomas in the right lung. Emphysema: Hyperinflation. Diffuse emphysematous changes worse in the upper lobes with a centrilobular emphysema. Stable fibrocalcific scarring in the medial aspect of the right lung apex. Measuring 6.8 mm in the posterior aspect of the right upper lobe abutting the minor fissure. Endobronchial lesion: Unremarkable Aorta: Calcific plaques of the aortic arch. CORONARY ARTERIES: Coronary artery calcification is seen. Heart: Unremarkable Pulmonary artery: Unremarkable Mediastinal nodes: Calcified right hilar lymph node. Other chest and abdominal findings: CT/Low Dose CT Lung Screening IMPRESSION: Lung-RADS category 2 - Continue annual screening with LDCT in 12 months. IMPORTANT NOTES FOR USE: ACR Lung-RADS Version 1.1 Assessment Categories Release Date: 2018 Category: Coded 0-4 bases on nodule(s) with highest degree of suspicion. Negative screen is defined as categories 1 and 2; a positive screen is defined as categories 3 and 4. Category 3 and 4A nodules that are unchanged on interval CT should be coded as category 2, and individuals returned to screening in 12 months. Category 4X: Category 3 or 4 nodules with additional imaging findings that increase the suspicion of lung cancer, such as spiculation, GGN that doubles in size in 1 year, enlarged lymph notes, etc. Category Modifiers: S (significant finding unrelated to lung cancer) Electronically Signed: Gavin Srinivasan MD at 15:38 EST ,
== END | disposition home or self-care (01) ==
PROVIDERS: PCP Family Medicine; Visit Provider Nurse Practitioner Acute Care
DX: F17.210 Nicotine dependence, cigarettes, uncomplicated (principal)
CPT/HCPCS: 71271

== ENCOUNTER → 2023-10-23 | Outpatient (CLI) | payer MEDICARE, MEDICAID, SELFPAY ==
--- OUTSIDE RECORDS SUMMARY | 2023-10-23 17:48 | XMS RPT_ITS | CCD ---
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 Name Role Phone Vasquez Martínez Primary Care Provider Unavailable Primary Care Provider Unavailabl e PROVIDER, UNKNOWN Referring Unavailable Gunning, Vasquez Primary Care Unavailable Gunning, Vasquez Attending Unavailable PROVIDER, UNKNOWN Referring Unavailable Gunning, Vasquez Primary Care Unavailable Gunning, Vasquez Attending Unavailable Gunning, Vasquez Attending Unavailable PROVIDER, UNKNOWN Referring Unavailable Gunning, Vaqsuez Primary Care Unavailable Gunning, Vasquez Primary Care Unavailable PROVIDER, UNKNOWN Referring Unavailable Gunning, Vasquez Attending Unavailable Gunning, Vasquez Primary Care Unavailable PROVIDER, UNKNOWN Referring Unavailable Elroy Ibarra Attending Unavailable Gunning Vasquez FERNANDEZ Primary Care Provider Gunning , Vasquez Primary Care Provider GunVasquez richardson MD Primary Care Provider ELLEN HOLLEY Attending Unavailable GUNNING, VASQUEZ Oleary Referring Unavailable GUNNING, VASQUEZ Oleary Primary Care Unavailable ELLEN HOLLEY Referring Unavailable GUNNING, VASQUEZ Oleary Primary Care Unavailable GUNNING, VASQUEZ Attending Unavailable GUNNING, VASQUEZ Referring Unavailable GUNNING, VASQUEZ Primary Care Unavailable GUNNING, VASQUEZ Primary Care Unavailable JOHNSON, MANA Attending Unavailable GUNNING, VASQUEZ Referring Unavailable GUNNING, VASQUEZ Primary Care Unavailable GUNNING, VASQUEZ Attending Unavailable GUNNING, VASQUEZ Referring Unavailable GUNNING, VASQUEZ Attending Unavailable GUNNING, VASQUEZ Referring Unavailable GUNNING, VASQUEZ Primary Care Unavailable GUNNING, VASQUEZ Primary Care Unavailable AMADOU, MANA Attending Unavailable JOHNSON, MANA Referring Unavailable GUNNING, VASQUEZ Primary Care Unavailable GUNNING, VASQUEZ Attending Unavailable GUNNING, VASQUEZ Referring Unavailable GUNNING, VASQUEZ Referring Unavailable GUNNING, VASQUEZ Primary Care Unavailable Allergies Allergy Classification Reported Allergen(s) Allergy Type Date of Onset Reaction(s) Facility Opioid Agonists (1 source) Codeine Drug Allergy 7 Other (See Comments) [facility] Penicillins (antibiotic) (1 source) Penicillins Drug Allergy 6 Rash [facility] Quinolones (antibiotic) (1 source) levoFLOXacin Drug Allergy 7 Swelling [facility] Sulfonamides (antibiotic) (1 source) Sulfonamides (Antibiotic) Drug Allergy 6 Swelling [facility] (20 sources) Codeine; Translations: [CODEINE] Drug Allergy 6 Other (See Comments) [place] (20 sources) levoFLOXacin; Translations: [LEVOFLOXACIN IN D5W] Drug Allergy 7 Swelling [place] (15 sources) Penicillins; Translations: [PENICILLINS] Propensity to adverse reactions to drug 6 Rash [place] (13 sources) Sulfonamides (Antibiotic) Propensity to adverse reactions to drug 6 Swelling [place] (6 sources) Penicillins Propensity to adverse reactions 6 [facility] (20 sources) Sulfonamides (Antibiotic); Translations: [SULFA (SULFONAMIDE ANTIBIOTICS)] Drug Allergy 6 Anaphylaxis, [facility] (17 sources) Budesonide; Translations: [BUDESONIDE] Allergy to substance 2 [facility] (20 sources) Escitalopram; Translations: [ESCITALOPRAM] Drug Allergy 3 Anaphylaxis [facility] (16 sources) levoFLOXacin Drug Allergy 7 Anaphylaxis, Swelling [facility] (16 sources) Penicillins Drug Allergy 6 Hives, Rash [facility] (20 sources) Tetracycline; Translations: [TETRACYCLINE] Drug Allergy 2 Vomiting [facility] (16 sources) Trimethoprim Drug Allergy 2 [facility] (5 sources) Budesonide Drug Allergy 2 Other: See Comments [facility] Medications Current Medications Medication Drug Class(es) Dates Sig (Normalized) Sig (Original) acetaminophen 325 mg / HYDROcodone bitartrate 5 mg oral tablet (15 sources) Opioid Agonist Start: 08-13-2022 take 1 tablet by mouth every four to six hours for pain HYDROcodone-acetam inophen ([place]) 5-325 MG tablet take 1 tablet by mouth every 4 to 6 hours WHILE AWAKE if needed for POST OP PAIN for 3 days 0 08/13/2022 Active acetaminophen 325 mg / oxyCODONE hydrochloride 5 mg oral tablet (15 sources) Opioid Agonist Start: 03-04-2022 take 1 tablet by mouth every four to six hours for pain oxyCODONE-acetamin ophen (Percocet) 5-325 MG tablet take 1 tablet by mouth every 4 to 6 hours if needed FOR POST-OP PAIN WHILE AWAKE 0 03/04/2022 Active alendronic acid 70 mg oral tablet (15 sources) Bisphosphonate alendronate (Fosamax) 70 MG tablet 1 tablet 30 minutes before the first food, beverage or medicine of the day with plain water Orally Once a week for 84 0 Active ALPRAZolam 1 mg oral tablet (20 sources) Benzodiazepine ALPRAZolam (Xana x) 1 MG tablet alprazolam 1 mg tablet 0 Active Completed/Discontinued Medications Medication Drug Class(es) Dates Sig (Normalized) Sig (Original) acetaminophen 500 mg oral tablet (7 sources) Start: 01-18-2021 End: 01-18-2021 acetaminophen (TYLENOL) tablet 1,000 mg Problems Active Problems Problem Classification Problem Date Documented Da te Episodic/Chronic Abdominal pain (3 sources) Epigastric pain; Translations: [Epigastric pain] Onset: 04-29-2023 04-16-2023 Episodic Alcohol-related disorders (1 source) Alcohol intoxication; Translations: [Alcohol use, unspecified with intoxication, uncomplicated] Episodic Chronic obstructive pulmonary disease and bronchiectasis (6 sources) Pulmonary emphysema; Translations: [Emphysema, unspecified] Onset: 06-24-2023 06-24-2023 Chronic Conditions associated with dizziness or vertigo (2 sources) Dizziness and giddiness; Translations: [Dizziness and giddiness] Onset: 06-11-2022 Episodic Essential hypertension (20 sources) Hypertensive disorder; Translations: [Essential (primary) hypertension] Onset: 05-30-2019 05-30-2019 Chronic External cause codes: Fall (1 source) Fall on same level; Translations: [Fall from ground level] Joint disorders and dislocations; trauma-related (2 sources) Loose body in knee, right knee; Translations: [Loose body in knee, right knee] Onset: 09-20-2021 Chronic Open wounds of head; neck; and trunk (1 source) Scalp laceration; Translations: [Laceration without foreign body of scalp, initial encounter] Episodic Osteoarthritis (4 sources) Unspecified osteoarthritis, unspecified site; Translations: [Unilateral primary osteoarthritis, right knee] Onset: 09-20-2021 Chronic Other connective tissue disease (1 source) Quadriceps weakness; Translations: [Muscle weakness (generalized)] Episodic Other connective tissue disease (1 source) Disorder of tendon; Translations: [Unspecified disorder of synovium and tendon, right thigh] Episodic Other gastrointestinal disorders (1 source) Altered bowel function; Translations: [Change in bowel habit] 04-16-2023 Episodic Other injuries and conditions due to external causes (2 sources) Injury of head; Translations: [Unspecified injury of head, initial encounter] Episodic Other nervous system disorders (2 sources) Other chronic pain; Translations: [Other chronic pain] Onset: 12-01-2021 Chronic Other non-traumatic joint disorders (2 sources) Pain in right hip joint; Translations: [Right hip pain] Other nutritional; endocrine; and metabolic disorders (1 source) Abnormal weight loss; Translations: [Abnormal weight loss] 04-16-2023 Episodic Rheumatoid arthritis and related disease (2 sources) Juvenile arthritis, unspecified, right knee; Translations: [Juvenile arthritis, unspecified, right knee] Onset: 09-20-2021 Chronic Skull and face fractures (1 source) Closed fracture of nasal bones; Translations: [Closed fracture of nasal bone, initial encounter] Episodic Sprains and strains (1 source) Strain of neck muscle; Translations: [Strain of neck muscle, initial encounter] Episodic Substance-related disorders (2 sources) Nicotine dependence, unspecified, uncomplicated; Translations: [Nicotine dependence, unspecified, uncomplicated] Onset: 12-01-2021 Chronic Past or Other Problems Problem Classification Problem Date Documented Da te Episodic/Chronic Allergic reactions (8 sources) Allergy status to sulfonamides status; Translations: [Allergy status to penicillin] Onset: 12-01-2021 Episodic Coronary atherosclerosis and other heart disease (2 sources) Coronary angioplasty status; Translations: [Coronary angioplasty status] Onset: 12-01-2021 Episodic E Codes: Fall (3 sources) Fall; Translations: [Unspecified fall, initial encounter] Onset: 12-01-2021 Episodic Fracture of neck of femur (hip) (20 sources) Closed fracture proximal femur, intertrochanteric, two part ; Translations: [Closed fracture of hip] Onset: 06-11-2019 06-11-2019 Episodic Fracture of upper limb (5 sources) Closed fracture of right wrist; Translations: [Fracture of unspecified carpal bone, right wrist, initial encounter for closed fracture] Onset: 12-01-2021 Episodic Joint disorders and dislocations; trauma-related (2 sources) Complex tear of medial meniscus, current injury, right knee, initial encounter; Translations: [Complex tear of medial mensc, current injury, r knee, init] Onset: 09-20-2021 Episodic Other aftercare (2 sources) Other intermodal dispatcher (current) drug therapy; Translations: [Other intermodal dispatcher (current) drug therapy] Onset: 12-01-2021 Episodic Other and unspecified benign neoplasm (2 sources) 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; Translations: [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] Onset: 09-20-2021 Episodic Other bone disease and musculoskeletal deformities (2 sources) Chondromalacia, right knee; Translations: [Chondromalacia, right knee] Onset: 09-20-2021 Episodic Other connective tissue disease (2 sources) Pain in left hand; Translations: [Pain in left hand] Onset: 12-01-2021 Episodic Other connective tissue disease (2 sources) Muscle weakness (generalized); Translations: [Muscle weakness (generalized)] Onset: 12-16-2022 Episodic Other connective tissue disease (2 sources) Unspecified disorder of synovium and tendon, right thigh; Translations: [Unspecified disorder of synovium and tendon, right thigh] Onset: 12-16-2022 Episodic Other lower respiratory disease (2 sources) Hypoxemia; Translations: [Hypoxemia] Onset: 11-27-2022 11-27-2022 Episodic Other lower respiratory disease (1 source) Hypoxemia; Translations: [Hypoxemia] Onset: 11-27-2022 Episodic Other non-traumatic joint disorders (2 sources) Pain in right wrist; Translations: [Pain in right wrist] Onset: 12-01-2021 Episodic Other non-traumatic joint disorders (5 sources) Pain in right knee; Translations: [Pain in joint, lower leg] Onset: 12-16-2022 Episodic Other screening for suspected conditions (not mental disorders or infectious disease) (20 sources) Thallium stress test abnormal; Translations: [Abnormal result of other cardiovascular function study] Onset: 05-30-2019 05-30-2019 Episodic Other skin disorders (4 sources) Disorder of left lower extremity; Translations: [Localized swelling, mass and lump, left lower limb] Onset: 03-18-2023 03-18-2023 Episodic Other skin disorders (1 source) Localized swelling, mass and lump, left lower limb; Translations: [Localized swelling, mass and lump, left lower limb] Onset: 03-18-2023 Episodic Residual codes; unclassified (2 sources) Edema, unspecified; Translations: [Edema, unspecified] Onset: 07-12-2021 Episodic Spondylosis; intervertebral disc disorders; other back problems (2 sources) Cervicalgia; Translations: [Cervicalgia] Onset: 12-01-2021 Episodic Results Test Name Value Interpretation Reference Range Facil ity Vital Signs Date Time Vital Sign Value Performing Clinician Facility 04-16-2023 09:17-0400 Body height 167.6 cm Ellen Kalka PA-C Work Phone: [facility] 04-16-2023 09:17-0400 Body weight 55.79 kg Ellen Kalka PA-C Work Phone: [facility] 04-16-2023 09:17-0400 Diastolic blood pressure 72 mm[Hg] Ellen Kalka PA-C Work Phone: [facility] 04-16-2023 09:17-0400 Heart rate 82 /min Ellen Kalka PA-C Work Phone: [facility] 04-16-2023 09:17-0400 Systolic blood pressure 130 mm[Hg] Ellen Kalka PA-C Work Phone: [facility] 12-01-2021 10:00-0400 Body height 167.6 cm Elroy Ibarra MD Work Phone: [facility] 12-01-2021 10:00-0400 Body mass index (BMI) [Ratio] 25.02 kg/m2 Elroy Ibarra MD Work Phone: [facility] 12-01-2021 10:00-0400 Body temperature 99.5 [degF] Elroy Ibarra MD Work Phone: [facility] 12-01-2021 10:00-0400 Body weight 70.31 kg Elroy Ibarra MD Work Phone: [facility] 12-01-2021 10:00-0400 Diastolic blood pressure 76 mm[Hg] Elroy Ibarra MD Work Phone: [facility] 12-01-2021 10:00-0400 Heart rate 84 /min Elroy Ibarra MD Work Phone: [facility] 12-01-2021 10:00-0400 Respiratory rate 16 /min Elroy Ibarra MD Work Phone: [facility] 12-01-2021 10:00-0400 SaO2% (BldA) [Mass fraction] 96 % Elroy Ibarra MD Work Phone: [facility] 12-01-2021 10:00-0400 Systolic blood pressure 151 mm[Hg] Elroy Ibarra MD Work Phone: [facility] 01-18-2021 03:36-0400 Diastolic blood pressure 49 mm[Hg] Elroy Maurer MD Work Phone: [facility] Work Phone: 01-18-2021 03:36-0400 Heart rate 72 /min Elroy Maurer MD Work Phone: [facility] Work Phone: 01-18-2021 03:36-0400 SaO2% (BldA) [Mass fraction] 93 % Elroy Maurer MD Work Phone: [facility] Work Phone: 01-18-2021 03:36-0400 Systolic blood pressure 107 mm[Hg] Elroy Maurer MD Work Phone: [facility] Work Phone: 01-18-2021 00:28-0400 Body height 167.6 cm Elroy Maurer MD Work Phone: [facility] Work Phone: 01-18-2021 00:28-0400 Body mass index (BMI) [Ratio] 27.12 kg/m2 Elroy Maurer MD Work Phone: [facility] Work Phone: 01-18-2021 00:28-0400 Body temperature 98.1 [degF] Elroy Maurer MD Work Phone: [facility] Work Phone: 01-18-2021 00:28-0400 Body weight 76.2 kg Elroy Maurer MD Work Phone: [facility] Work Phone: 01-18-2021 00:28-0400 Respiratory rate 16 /min Elroy Maurer MD [facility] Work Phone: 06-24-2020 09:09-0400 BP Diastolic 72 mm[Hg] [facility] , [place] 06-24-2020 09:09-0400 BP Systolic 133 mm[Hg] [place], [place] 06-24-2020 09:09-0400 Pulse (Heart Rate) 77 /min [place], [place] 06-24-2020 09:09-0400 Pulse Oximetry 93 % [facility] , [place] 06-24-2020 09:09-0400 Respiratory Rate 14 /min [facility] 06-24-2020 08:01-0400 BMI (Body Mass Index) 27.28 kg/m2 [facility], [place] 06-24-2020 08:01-0400 Body Temperature 97.59 [degF] [facility], [place] 06-24-2020 08:01-0400 Body weight 76.66 kg [place], [place] 06-24-2020 08:01-0400 Height 167.6 cm [facility] , [place] 06-14-2019 07:39-0400 Body Temperature 98.49 [degF] [facility] 06-14-2019 07:39-0400 BP Diastolic 80 mm[Hg] [place], [place] 06-14-2019 07:39-0400 BP Systolic 119 mm[Hg] Elroy [facility] , [place] 06-14-2019 07:39-0400 Pulse (Heart Rate) 69 /min Elroy [facility] 06-14-2019 07:39-0400 Pulse Oximetry 95 % Elroy [facility] , [place] 06-14-2019 07:39-0400 Respiratory Rate 18 /min [facility], [place] 06-11-2019 04:15-0400 BMI (Body Mass Index) 26.47 kg/m2 Elroy [facility], [place] 06-11-2019 04:15-0400 Body weight 76.66 kg Elroy [facility] , [place] 06-11-2019 04:14-0400 Height 170.2 cm Elroy [facility] , [place] 05-23-2019 08:12-0400 BMI (Body Mass Index) 24.75 kg/m2 [facility]quez [facility]nez [facility], [place] 05-23-2019 08:12-0400 Body weight 71.67 kg Vasquze [facility] , [place] 05-23-2019 08:12-0400 Height 170.2 cm Vasquez [place] Encounters Encounter Date Encounter Type Care Provider Facility Start: 09-11-2023 ambulatory Purnima Crane Cl inical Communication Start: 09-11-2023 Patient encounter procedure Purnima Crane Clinical Communication Start: 07-05-2023 Refzaida Holley PA-C Work Phone: [facility] Procedures Date Procedure Procedure Detail Performing Clinician Start: 06-24-2023 Radiologic exam ches t 2 views Vasquez Martínez MD Work Phone: Start: 12-16-2022 Radiologic examinati on knee 1/2 views Mana Johnson MD Work Phone: Start: 12-01-2021 Radex wrist complete minimum 3 views Elroy Ibarra MD Work Phone: Start: 01-18-2021 Ct cervical spine w/ o contrast material Elroy Maurer MD Work Phone: Start: 01-18-2021 Ct head/brain w/o co ntrast material Elroy Maurer MD Work Phone: Start: 01-18-2021 LACERATION REPAIR Elroy Maurer MD Work Phone: Start: 10-04-2020 Duplex scan extracra nial art compl bi study Vasquez Martínez Work Phone: Start: 09-14-2020 Ct maxillofacial w/o contrast material Gavintee Deshawn Work Phone: Start: 08-17-2020 Radiologic exam ches t 2 views Vasquez Martínez Work Phone: Start: 06-24-2020 Ct cervical spine w/ o contrast material Robbi John DEUS Work Phone: Start: 06-24-2020 Ct head/brain w/o co ntrast material Robbi John DEUS Work Phone: Start: 06-24-2020 Ct maxillofacial w/o contrast material Robbi John DEUS Work Phone: Start: 11-08-2019 Radex clavicle complete Vasquez Martínez Work Phone: Start: 11-08-2019 Radex shoulder compl ete minimum 2 views Vasquez Martínez Work Phone: Start: 11-08-2019 Radiologic exam knee complete 4/more views Vasquez Martínez Work Phone: Start: 2019 Radex hip unilateral with pelvis 2-3 views Nilesh J Frangiaabner Work Phone: Start: 06-22-2019 Radex hip unilateral with pelvis 2-3 views Nilesh J Frangiamore Work Phone: Start: 06-13-2019 Blood count complete automated Willian Villanuevay Work Phone: Start: 06-12-2019 Blood count complete auto&auto difrntl wbc Willian May Work Phone: Start: 06-11-2019 OPERATIVE REPORT 3m Sca nning Start: 06-11-2019 Radiologic examinati on femur minimum 2 views Elroy Moy Work Phone: Start: 06-11-2019 Blood typing serologic abo Gonzalo Oneal Work Phone: Start: 06-11-2019 Chest x-ray 1 view frontal Gonzalo Oneal Work Phone: Start: 06-11-2019 Assay of troponin quantitative Elroy Moy Work Phone: Start: 06-11-2019 Blood count complete auto&auto difrntl wbc Elroy Moy Work Phone: Start: 06-11-2019 Comprehensive metabo lic panel Elroy Moy Work Phone: Start: 06-11-2019 Prothrombin time Elroy Moy Work Phone: Start: 06-11-2019 Thromboplastin time partial plasma/whole blood Elroy Moy Work Phone: Start: 06-11-2019 Ecg routine ecg w/le ast 12 lds w/i&r Elroy Moy Work Phone: Start: 06-11-2019 Radex hip unilateral with pelvis 2-3 views Elroy Moy Work Phone: Start: 05-23-2019 Myocardial spect mul tiple studies Vasquez Martínez Work Phone: Plan of Treatment Date Care Activity Detail Author Start: 12-02-2023 End: 12-02-2023 Patient encounter procedure 12/02/2023 11:00 AM EDT Office Visit [facility] [address] [place] [address] [address] [place] [address] Ana Schneider DO [address] [place] [address] [facility] Start: 09-21-2023 End: 09-21-2023 Patient encounter procedure 09/21/2023 9:00 AM EST Office Visit [facility] [address] [place] [address] Gonzalo Perla PA-C [address] [place] [id number] [facility] Start: 07-02-2023 End: 07-02-2023 Patient encounter procedure 07/02/2023 9:00 AM EDT Appointment [facility] Non-Invasive Cardiology [address] [place] [address] [facility] Non-Invasive Cardiology Start: 06-29-2023 End: 06-29-2025 Stress echocardiogram (TTE) exercise with contrast, bubble, strain, and 3D PRN Stress echocardiogram (TTE) exercise with contrast, bubble, strain, and 3D PRN CV Stress Echocardiography Routine Emphysema, unspecified (HCC) Expected: 06/29/2023 (Approximate), Expires: 06/29/2025 [facility] [employer] [facility] Work Phone: Immunizations Immunization Date Immunization Notes Care Provider Fa cility 06-03-2015 influenza virus vacc ine, unspecified formulation Vasquez Martínez MD Work Phone: [facility] Payers Date Payer Category Payer Private Health Insurance [id number] 2022 Medicare [id number] 2022 Medicare [id number] 2021 Medicaid [id number] 2020 Private Health Insurance [id number] 2018 Medicaid [id number] 2014 Unknown [id number] 2014 Unknown [id number] 1957 Unknown [id number] 2.16. [id number] 1957 Unknown [id number] [id number]. [id number] 1957 Unknown [id number] [id number]. [id number] 1957 Unknown [id number] [id number]. [id number] 1957 Unknown [id number] [id number]. [id number] Private Health Insurance Social History Date Type Detail Facility Start: 05-16-2019 End: 04-16-2023 Tobacco smoking status NHIS Current every day smoker [facility] Start: 05-16-2019 End: 08-26-2022 Alcohol intake Yes [place], [place] Start: 02-28-2016 Alcohol Comment occ [place], [place] Start: 1955 Sex Assigned At Not on file M [place] Start: 05-23-2019 End: 08-26-2022 Cigarettes smoked current (pack per day) - Reported [place], [place] Start: 2019 End: 08-26-2022 Alcohol intake Current drinker of alcohol (finding) [place] Start: 06-24-2020 End: 04-16-2023 Tobacco use and exposure Never used [place] Start: 06-24-2020 Alcohol Comment frequently [place], [place] Start: 11-21-2021 End: 03-18-2023 Exposure to SARS-CoV-2 (event) Not sure [place], [place] History of tobacco use Cigarette Smoker [facility] Start: 04-15-2006 Alcohol intake Not Asked Seferino sinha [facility] National Score (1-10 0), lower number is lower risk 78 [facility] Clinical Notes 05-29-2022 to 09-11-2023 Telephone Encounter - Purnima Santos RN - 09/11/2023 9:28 AM ESTTelephone Encounter - Purnima Santos RN - 09/11/2023 9:28 AM ESTTelephone Encounter - Naveed Kat MA - 07/06/2023 7:58 AM EDT Note Date & Type Note Facility 09-11-2023 Telephone encounter Note Requesting a new patient appointment. Scheduled and an appointment prior for med refills. Appointment scheduled, address given to the patient, instructed to bring photo ID, insurance info and medication list to the appointment. Instructed prior appointment is only for medication refills and not for chronic problems. Reason for Disposition Information only question and nurse able to answer Protocols used: Information Only Call - No [id number] [facility] 09-11-2023 Miscellaneous Notes Requesting a new patient appointment. Scheduled and an appointment prior for med refills. Appointment scheduled, address given to the patient, instructed to bring photo ID, insurance info and medication list to the appointment. Instructed prior appointment is only for medication refills and not for chronic problems. Reason for Disposition Information only question and nurse able to answer Protocols used: Information Only Call - No [id number] documented in this encounter [facility] 07-06-2023 Miscellaneous Notes Patient phones requesting refills as follows: Requested Prescriptions Pending Prescriptions Disp Refills omeprazole (PRILOSEC) 20 mg capsule [Pharmacy Med Name: OMEPRAZOLE DR 20 MG CAPSULE] 30 capsule 2 Sig: take 1 capsule by mouth once daily TAKE ON EMPTY STOMACH AT LEAST 30 MINUTES BEFORE EATING Please review and advise. Naveed Kat MA documented in this encounter [facility] 07-01-2023 Note HNO ID: [id number] Author: Jay Magana, DO Service: ? Author Type: Physician Type: Progress Notes Filed: 07/01/2023 4:02 PM Note Text: July 01, 2023 An order has been received for a PAP Titration from [facility] [facility] Staff/Journeyman Operator Assistant Staff Orders. Visit prep complete - Please refer to the sleep study order (under procedures tab) for protocol details and special instructions. Scheduled for 07/04/2023. Insurance: Payor: HUMANA MEDICARE / Plan: HUMANA GOLD PLUS / Product Type: HMO / Payer/Plan Subscr Sex Relation Sub. Ins. ID Effective Group Num 1. HU[employer]NA MEDICA* SULLY PEREZ 1955 Female Self [id number] 08/[birth year]/22 [address] [address] Bonita BartlettOctober 2022 Standing PSG Orders signed in the last 90 days None Future PSG Orders signed in the last 90 days None All Prior Sleep Studies (past 365 days) Some values may be hidden. Unless noted otherwise, only the newest values recorded on each date are displayed. Sleep Studies No data to display. BMI Readings from Last 2 Encounters: 04/16/23 : 19.85 kg/m? 04/15/06 : 28.51 kg/m? 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 Indications for study: CODY previously diagnosed: Evaluate response to PAP therapy Sleep study to be performed: PAP titration study Special instructions: Target REM/supine sleep Bonita Bartlett --- Sleep Medicine Staff Note: I have read the above protocol, edited as needed, and agree to the plan. Jay Magana DO 4:02 PM, 07/01/2023 [facility] 06-29-2023 Telephone encounter Note Ilianalulu the stress echo is not passing medical necessity (ABN fail), thanks! [facility] 06-29-2023 Miscellaneous Notes Ren the stress echo is not passing medical necessity (ABN fail), thanks! documented in this encounter [facility] 06-11-2023 Note HNO ID: [id number] Author: James Kirkpatrick MD Service: ? Author Type: Physician Type: Progress Notes Filed: 06/11/2023 3:21 PM Note Text: June 11, 2023 An order has been received for a CPAP Titration from [facility] Staff/Journeyman Operator Assistant Staff Orders. Visit prep complete - Please refer to the sleep study order (under procedures tab) for protocol details and special instructions. Scheduled for 06/15/2023. Insurance: Payor: HUMANA MEDICARE / Plan: ALTILIA / Product Type: HMO / Payer/Plan Subscr Sex Relation Sub. Ins. ID Effective Group Num 1. HUMANA MEDICA* SULLY PEREZ 1955 Female Self [id number] [birth year] [address] [address] Bonita BartlettOct2022 Standing PSG Orders signed in the last 90 days None Future PSG Orders signed in the last 90 days None All Prior Sleep Studies (past 365 days) Some values may be hidden. Unless noted otherwise, only the newest values recorded on each date are displayed. Sleep Studies No data to display. BMI Readings from Last 2 Encounters: 04/16/23 : 19.85 kg/m? 04/15/06 : 28.51 kg/m? 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 Indications for study: CODY previously diagnosed: Evaluate response to PAP therapy Sleep study to be performed: PAP titration study Special instructions: Target REM/supine sleep Bonita Bartlett --- Sleep Medicine Staff Note: I have read the above protocol, edited as needed, and agree to the plan. James Kirkpatrick MD 3:21 PM, 06/11/2023 [facility] 06-11-2023 History of Presen t illness Narrative June 11, 2023 An order has been received for a CPAP Titration from Ji [facility] Staff/Journeyman Operator Assistant Staff Orders. Visit prep complete - Please refer to the sleep study order (under procedures tab) for protocol details and special instructions. Scheduled for 06/15/2023. Insurance: Payor: HUMANA MEDICARE / Plan: ALTILIA / Product Type: HMO / Payer/Plan Subscr Sex Relation Sub. Ins. ID Effective Group Num 1. HUMANA MEDICA* SULLY PEREZ 1955 Female Self [id number] [birth year] [address] [address] Bonita BartlettOct2022 Standing PSG Orders signed in the last 90 days None Future PSG Orders signed in the last 90 days None All Prior Sleep Studies (past 365 days) Some values may be hidden. Unless noted otherwise, only the newest values recorded on each date are displayed. Sleep Studies No data to display. 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 Indications for study: CODY previously diagnosed: Evaluate response to PAP therapy Sleep study to be performed: PAP titration study Special instructions: Target REM/supine sleep Bonita Bartlett --- Sleep Medicine Staff Note: I have read the above protocol, edited as needed, and agree to the plan. James Kirkpatrick MD 3:21 PM, 06/11/2023 documented in this encounter [facility] 04-29-2023 Note HNO ID: [id number] Author: Brit Ochoa RT(R) Service: Radiology Author Type: Technologist Type: Progress Notes Filed: 04/29/2023 9:15 AM Note Text: Radiology Service Progress Note PATIENT NAME: Sully Perez DATE OF SERVICE: April 29, 2023 TIME: 9:14 AM PATIENT IDENTITY VERIFICATION COMPLETED USING TWO (2) IDENTIFIERS: Name and Date of confirmed by patient verbally. FALL SCREENING: Has the patient had 2 falls in the last year or 1 fall with injury or currently using an Ambulatory Assistive Device (Walker, Cane, Wheelchair, Crutches, etc.)? No PATIENT GENDER DATA: Female. status: : No status: NO. PATIENT RELEVANT IMPLANT DATA REVIEWED: Not Applicable RADIOLOGY DEPARTMENT: Ultrasound PERIPHERAL IV DATA: Not applicable SIGNED BY: RT Amada(R) April 29, 2023 9:14 AM [facility] 04-16-2023 Note HNO ID: [id number] Author: Ellen Holley PA-C Service: ? Author Type: Physician Assembly Line Leader Type: Progress Notes Filed: 04/16/2023 9:50 AM Note Text: CHIEF COMPLAINT: Patient presents with: Elevated lipase: Lost 40 lbs in the last couple months. Having some stomach pains and bloating along with diarrhea. Labs scanned in yesterday. HPI: Sully Perez is a 67 year old female who presents for Elevated lipase (Lost 40 lbs in the last couple months. Having some stomach pains and bloating along with diarrhea. Labs scanned in yesterday.). Surg hx positive for appendectomy. Reports weight loss of 40 lbs, altered bowel habits, nausea w/o emesis since 12/2022. Bms are currently altered between constipated/diarrhea, no blood/black coloring. Takes Imodium PRN which results in constipation. Last formed stool was yesterday. Takes metamucil with some relief. Will experience postprandial epigastric pain, regular belching. Takes Tums PRN with some relief. Takes Advil daily for a couple years . Denies family hx of GI related cancers. 03/2023 CMP WNL, CBC mildly increased plts 421/rest WNL, lipase initially mildly elevated at 54 recheck was 51 and WNL Record Review: [facility] / Outside records reviewed. 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; followed by K[facility] PAST SURGICAL HISTORY Procedure Laterality Date APPENDECTOMY COLONOSCOPY SCREENING 10 years ago per patient SINUSOTOMY FRONTAL EXTERNAL SIMPLE 09/07/1998 Removal of sinus abscess Allergies: ALLERGIES Allergen Reactions Escitalopram Anaphylaxis Levofloxacin In D5w Swelling Budesonide Other: See Comments Other reaction(s): boils Codeine chest pain Penicillins Hives Sulfa (Sulfonamide * Anaphylaxis Tetracycline Vomiting Other reaction(s): Vomiting Medications: albuterol HFA (PROVENTIL HFA, VENTOLIN HFA) 90 mcg/actuation inhaler inhale 2 puffs by mouth and INTO THE LUNGS every 4 hours if needed for wheezing amLODIPine (NORVASC) 10 mg tablet Take 1 tablet by mouth every afternoon. cyclobenzaprine (FLEXERIL) 5 mg tablet 1 tablet as needed Orally 2 times a day for 30 days acetaminophen (TYLENOL) 325 mg cap Take by mouth. ibuprofen (ADVIL) 200 mg tablet Take 200 mg by mouth every 6 hours as needed. cyanocobalamin (VITAMIN B-12) 100 mcg tab Take 100 mcg by mouth once daily. VENESSA 180 MG TAB Take 1 by mouth each morning FLONASE 50 MCG/ACTUATION NASAL SPRAY AEROSOL 2 sprays each nostril daily ZANTAC 150 MG TAB Take one(1) tablet two(2) times daily. ZYRTEC 10 MG TAB Take one tab by mouth each evening FAMILY HISTORY Problem Relation Age of Onset Allergies Mother Allergic rhinitis Allergies Daughter Immunotherapy when younger for seasonal allergies Colon Cancer No Family History Employer And Job Title: No employer specified ([employer]) Years Of Education Completed: Not specified Marital Status: Social History Tobacco Use Smoking status: Every Day Packs/day: 0.50 Years: 25.00 Total pack years: 12.50 Types: Cigarettes Smokeless tobacco: Never Vaping Use Vaping Use: Never used Substance Use Topics Alcohol use: Yes Drug use: Never Review of Systems: Review of Systems Constitutional: Positive for activity change, appetite change, fatigue and unexpected weight change. HENT: Positive for hearing loss. Gastrointestinal: Positive for abdominal distention, abdominal pain, constipation, diarrhea and nausea. Change in bowel habits, Gas, Heartburn All other systems reviewed and are negative. Are you taking any blood thinners? No Physical Examination: BP 130/72 Pulse 82 Ht 167.6 cm (5' 6 ) Wt 55.8 kg (123 lb) BMI 19.85 kg/m? Physical Exam Constitutional: General: She is not in acute distress. Appearance: Normal appearance. She is normal weight. She is not ill-appearing, toxic-appearing or diaphoretic. HENT: Head: Normocephalic and atraumatic. Nose: Nose normal. Eyes: General: No scleral icterus. Right eye: No discharge. Left eye: No discharge. Extraocular Movements: Extraocular movements intact. Conjunctiva/sclera: Conjunctivae normal. Pupils: Pupils are equal, round, and reactive to light. Cardiovascular: Rate and Rhythm: Normal rate and regular rhythm. Pulses: Normal pulses. Heart sounds: Normal heart sounds. No murmur heard. No friction rub. No gallop. Pulmonary: Effort: No respiratory distress. Breath sounds: Normal breath sounds. No stridor. No wheezing, rhonchi or rales. Chest: Chest wall: No tenderness. Abdominal: General: Abdomen is flat. Bowel sounds are normal. There is no distension. Palpations: Abdomen is soft. There is no mass. Tenderness: There is no abdominal tenderness. There is no right CVA tenderness, left CVA tenderness, guarding or rebound. Hernia: No hernia is pres (more content not included)... [facility] 04-16-2023 Instructions Ellen Holley PA-C - 04/16/2023 9:35 AM EDT Images from the original note were not included. Recommend high protein, high fiber diet. Promotion of salivation through oral lozenges/chewing gum Drink plenty of water Avoid NSAIDs (such as Advil, Ibuprofen, Excedrin, Mobic), tobacco, alcohol, carbonated beverages, caffeine, chocolate, tomato based sauces, spicy/fatty foods, and peppermint Avoid eating less than 3 hours before bed. Elevate the head of the bed 6 inches, or invest in a wedge pillow. Laying on left side with head elevated may help alleviate reflux symptoms. Bowel Preparation Instructions for: Miralax-Gatorade Preparations IF YOU DO NOT FOLLOW THESE DIRECTIONS, YOUR COLONOSCOPY WILL BE CANCELLED. Smith Instructions: Your bowel must be empty so that your doctor can clearly view your colon. Follow all of the instructions in this handout EXACTLY as they are written. Do NOT eat any solid food the ENTIRE day before your colonoscopy. Buy your bowel preparation at least 5 days before your colonoscopy. Four (4) Dulcolax laxative tablets containing 5mg of bisacodyl each (NOT Dulcolax stool softener) One (1) 8.3oz. bottle Miralax (238 grams) or generic equivalent 2 x 32oz. Bottles of Gatorade (NOT RED) Diabetic Patients: Use G2 (Gatorade 2) TRANSPORTATION on the Day of Your Exam A responsible adult MUST be present with you at Check In prior to your colonoscopy and REMAIN in the endoscopy area until you are discharged. You are NOT ALLOWED to drive, take a taxi or bus, or leave the Endoscopy Center ALONE. If you do not have a responsible tier truck driver (family member or friend) with you to take you home, your exam cannot be done with sedation and will be cancelled. Please bring a list of all of your current medications, including any [id number] medications with you. Medications If you take insulin, diabetic medications or blood thinners such as Coumadin (warfarin), Plavix (clopidogrel), Ticlid (ticlopidine hydrochloride), Agrylin (anagrelide), Xarelto (Rivaroxaban), Pradaxa (Dabigatran), Eliquis (Apixaban), and Effient (Prasugrel). You MUST call the doctors who orders those medicines for instructions on altering the dosage before your colonoscopy. All other medications should be taken the day of the exam with a sip of water including ASPIRIN. Five (5) Days Before Your Colonoscopy Do NOT take medicines that stop diarrhea - such as Imodium, Kaopectate, or Pepto Bismol. Do NOT take fiber supplements - such as Metamucil, Citrucel, or Perdiem. Do NOT take products that contain iron - such as multi-vitamins (the label lists what is in the products). Three (3) Days Before Your Colonoscopy Do NOT eat high-fiber foods - such as popcorn, beans, seeds (flax, sunflower, quinoa), multigrain bread, nuts, salad/vegetables, or fresh and dried fruit. 1 Bowel Preparation Instructions for: Miralax-Gatorade Preparations One (1) Day Before Your Colonoscopy Only drink clear liquids the ENTIRE DAY before your colonoscopy. Do NOT eat any solid foods. Drink at least 8 ounces of clear liquids every hour after waking up. The clear liquids you can drink include: Clear Liquid (NO RED LIQUIDS) DO NOT DRINK Gatorade, Pedialyte or Powerade Clear broth or bouillon Coffee or tea (no milk or non-dairy creamer) Carbonated and non-carbonated soft drinks Mohamud-Aid or other fruit flavored drinks Strained fruit juices (no pulp) Jell-O, popsicles, hard candy Water Alcohol Milk or non-dairy creamers Noodles or vegetables in soup Juice with pulp Liquid you cannot see through Do not use tobacco/vaping products Mix 1/2 of Miralax bottle (119 grams) in each 32 ounces of Gatorade bottle until dissolved. Keep cool in the refrigerator. DO NOT ADD ICE. The bowel preparation solution will be consumed in two parts. Part 1 5:00 PM - Evening before your colonoscopy Take 4 Dulcolax tablets. 6 PM - Evening before your colonoscopy Drink 32 oz. of the mixed solution. Drink an 8 oz. glass of bowel preparation every 15 minutes for a total of 4 glasses. Fifteen (15) minutes later, drink an 8 oz. glass of of clear liquids every 15 minutes for a total of 2 glasses. You may continue to drink clear liquids till midnight. Part 2 On the day of your colonoscopy you may drink clear liquids up to (three) 3 hours prior to procedure. 4 1/2 hours before your colonoscopy Take another 32 oz. bottle of mixed solution. Drink an 8 oz. glass of bowel prep every 15 minutes for a total of 4 glasses. Fifteen (15) minutes later, drink an 8 oz. glass of clear liquids every 15 minutes for a total of 2 glasses. You may continue to drink clear liquids up to (three) 3 hours before your exam. 2 08/2019 documented in this encounter [facility] 04-16-2023 History of Presen t illness Narrative CHIEF COMPLAINT: Patient presents with: Elevated lipase: Lost 40 lbs in the last couple months. Having some stomach pains and bloating along with diarrhea. Labs scanned in yesterday. HPI: Sully Perez is a 67 year old female who presents for Elevated lipase (Lost 40 lbs in the last couple months. Having some stomach pains and bloating along with diarrhea. Labs scanned in yesterday.). Surg hx positive for appendectomy. Reports weight loss of 40 lbs, altered bowel habits, nausea w/o emesis since 12/2022. Bms are currently altered between constipated/diarrhea, no blood/black coloring. Takes Imodium PRN which results in constipation. Last formed stool was yesterday. Takes metamucil with some relief. Will experience postprandial epigastric pain, regular belching. Takes Tums PRN with some relief. Takes Advil daily for a couple years . Denies family hx of GI related cancers. 03/2023 CMP WNL, CBC mildly increased plts 421/rest WNL, lipase initially mildly elevated at 54 recheck was 51 and WNL Record Review: [facility] / Outside records reviewed. 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; followed by [facility] PAST SURGICAL HISTORY Procedure Laterality Date APPENDECTOMY COLONOSCOPY SCREENING 10 years ago per patient SINUSOTOMY FRONTAL EXTERNAL SIMPLE 09/07/1998 Removal of sinus abscess Allergies: ALLERGIES Allergen Reactions Escitalopram Anaphylaxis Levofloxacin In D5w Swelling Budesonide Other: See Comments Other reaction(s): boils Codeine chest pain Penicillins Hives Sulfa (Sulfonamide * Anaphylaxis Tetracycline Vomiting Other reaction(s): Vomiting Medications: albuterol HFA (PROVENTIL HFA, VENTOLIN HFA) 90 mcg/actuation inhaler inhale 2 puffs by mouth and INTO THE LUNGS every 4 hours if needed for wheezing amLODIPine (NORVASC) 10 mg tablet Take 1 tablet by mouth every afternoon. cyclobenzaprine (FLEXERIL) 5 mg tablet 1 tablet as needed Orally 2 times a day for 30 days acetaminophen (TYLENOL) 325 mg cap Take by mouth. ibuprofen (ADVIL) 200 mg tablet Take 200 mg by mouth every 6 hours as needed. cyanocobalamin (VITAMIN B-12) 100 mcg tab Take 100 mcg by mouth once daily. VENESSA 180 MG TAB Take 1 by mouth each morning FLONASE 50 MCG/ACTUATION NASAL SPRAY AEROSOL 2 sprays each nostril daily ZANTAC 150 MG TAB Take one(1) tablet two(2) times daily. ZYRTEC 10 MG TAB Take one tab by mouth each evening FAMILY HISTORY Problem Relation Age of Onset Allergies Mother Allergic rhinitis Allergies Daughter Immunotherapy when younger for seasonal allergies Colon Cancer No Family History Employer And Job Title: No employer specified ([employer]) Years Of Education Completed: Not specified Marital Status: Social History Tobacco Use Smoking status: Every Day Packs/day: 0.50 Years: 25.00 Total pack years: 12.50 Types: Cigarettes Smokeless tobacco: Never Vaping Use Vaping Use: Never used Substance Use Topics Alcohol use: Yes Drug use: Never Review of Systems: Review of Systems Constitutional: Positive for activity change, appetite change, fatigue and unexpected weight change. HENT: Positive for hearing loss. Gastrointestinal: Positive for abdominal distention, abdominal pain, constipation, diarrhea and nausea. Change in bowel habits, Gas, Heartburn All other systems reviewed and are negative. Are you taking any blood thinners? No Physical Examination: BP 130/72 Pulse 82 Ht 167.6 cm (5' 6 ) Wt 55.8 kg (123 lb) BMI 19.85 kg/m Physical Exam Constitutional: General: She is not in acute distress. Appearance: Normal appearance. She is normal weight. She is not ill-appearing, toxic-appearing or diaphoretic. HENT: Head: Normocephalic and atraumatic. Nose: Nose normal. Eyes: General: No scleral icterus. Right eye: No discharge. Left eye: No discharge. Extraocular Movements: Extraocular movements intact. Conjunctiva/sclera: Conjunctivae normal. Pupils: Pupils are equal, round, and reactive to light. Cardiovascular: Rate and Rhythm: Normal rate and regular rhythm. Pulses: Normal pulses. Heart sounds: Normal heart sounds. No murmur heard. No friction rub. No gallop. Pulmonary: Effort: No respiratory distress. Breath sounds: Normal breath sounds. No stridor. No wheezing, rhonchi or rales. Chest: Chest wall: No tenderness. Abdominal: General: Abdomen is flat. Bowel sounds are normal. There is no distension. Palpations: Abdomen is soft. There is no mass. Tenderness: There is no abdominal tenderness. There is no right CVA tenderness, left CVA tenderness, guarding or rebound. Hernia: No hernia is present. Musculoskeletal: General: Normal range of motion. Cervical back: Normal range of motion and neck supple. Skin: General: Skin is warm and dry. Neurological: General: No focal deficit present. Mental Status: She is alert and oriented to person, place, and time. Psychiatric: Mood and Affect: Mood normal. Behavior: Behavior normal. Assessment/Plan (R19.4) Altered bowel habits (primary encounter diagnosis) (R10.13) Postprandial epigastric pain (R63.4) Abnormal weight loss 1. Altered bowel habits - COLONOSCOPY DIAGNOSTIC; Future - Consuming natural probiotics/yogurts - Recommended more regular usage of Metamucil as she has noticed improvement with this previously - Colon to r/o colorectal lesions, colitis 2. Postprandial epigastric pain - EGD DIAGNOSTIC; Future - US ABD RIGHT UPPER QUADRANT; Future - omeprazole (PRILOSEC) 20 mg capsule; Take 1 capsule by mouth once daily. On empty stomach at least 30 minutes before eating. Dispense: 30 capsule; Refill: 2 - Start Prilosec 20 mg daily - Discussed gastritis precautions and provided printed edu handout - RUQ US to r/o biliar disease - EGD to r/o PUD, H. Pylori, Celiac 3. Abnormal weight loss - EGD DIAGNOSTIC; Future - COLONOSCOPY DIAGNOSTIC; Future I spent a total of 20 minutes on the date of the service which included preparing to see the patient, [id number] patient care, completing clinical documentation, obtaining and/or reviewing separately obtained history, performing a medically appropriate examination, counseling and educating the patient/family/caregiver, ordering medications, tests, or procedures, communicating with other HCPs (not separately reported), independently interpreting results (not separately reported), communicating results to the patient/family/caregiver, and care coordination (not separately reported). Ellen Holley PA-C April 16, 2023 9:40 AM documented in this encounter [facility] 12-16-2022 History of Presen t illness Narrative Images from the original note were not included. [facility] [address] [place] [address] Dept: [phone] Dept Chief Complaint Patient presents with New Patient Right Subjective History of Present Illness: Sully Perez is a 67 y.o. female who presents today for evaluation of right knee pain. Location: anterior Onset: several years, chronic Injury: no Quality: throbbing, tight/stiff, and give out on her Mechanical symptoms: catching and instability Radiation of symptoms: no Severity: 2/10 at rest and 7/10 at worst Exacerbating factor(s): walking, prolonged sitting, rising from a seated position, and climbing/descending stairs Relieving factor(s): RICE Timing: all day Imaging to date: X-ray November 2022 Treatment to date: PT/OT/HEP: no Ice: yes, helpful Heat: no Medications: Tylenol: yes, helpful NSAIDs: yes, Ibuprofen/Motrin/Advil, helpful Oral steroids: no Muscle relaxants: no Nerve medications: no Targeted injections: Corticosteroid 15 years ago. Helpful. Assistive devices: none Prior surgery: no Occupation: Disabled Fall risk assessment: Completed today. Have you had 2 or more falls in the last year? Yes Have you had a fall with injury in the last year? Yes Do you feel unsteady or worried about falling? Yes Objective There were no vitals taken for this visit. Physical Exam: General: Alert, well appearing, no acute distress. Respiratory: Breathing comfortably on room air. No respiratory distress. Skin: Warm, dry, intact. No visible rashes or erythema overlying area of focused exam. Physical Exam Musculoskeletal: Right knee: No swelling, deformity, effusion, erythema, ecchymosis or bony tenderness. Normal range of motion. No tenderness. No LCL laxity, MCL laxity, ACL laxity or PCL laxity. Normal patellar mobility. Instability Tests: Anterior drawer test negative. Posterior drawer test negative. Anterior Liset test negative. Medial Kevin test negative and lateral Kevin test negative. External Notes Prior magnetic resonance imaging September 2021 reviewed with the patient. Labs No results found for: HGBA1C Lab Results Component Value Date CREATININE 0.69 06/11/2022 Imaging Images reviewed with patient today I have personally reviewed the images pertinent to the appointment today Mild medial compartment joint space narrowing. Prior chondral loose body seen on her magnetic resonance imaging. None tender to palpation EMG/NCT N/A Procedure No procedures completed today Assessment Diagnosis Plan 1. Acute pain of right knee XR knees anteroposterior standing bilateral XR knee 1 or 2 views right Ambulatory referral to Physical Therapy 2. Quadriceps weakness Ambulatory referral to Physical Therapy 3. Tendinopathy of right gluteus medius Ambulatory referral to Physical Therapy Plan General knee symptoms, no discrete pathology causing radicular or recurrent symptoms. We discussed a gradual strengthening program. We offered that she can do this at home or with formal physical therapy and she wants to proceed with formal physical [facility]. No follow-ups on file. Mana Johnson MD 12/16/2022 11:01 AM Please note that portions of this note may have been completed with voice recognition software. Documentation reviewed prior to signing but minor errors in information assurance officer may have occurred. documented in this encounter [facility] 05-29-2022 Miscellaneous Notes Reason for Disposition [1] SEVERE pain AND [2] not improved 2 hours after pain medicine Answer Assessment - Initial Assessment Questions 1. ONSET: 05/23/2022 2. LOCATION: right shoulder 3. PAIN: How bad is the pain? (Scale 1-10; or mild, moderate, severe) - SEVERE (8-10): excruciating pain, unable to do any normal activities, unable to move arm at all due to pain 4. WORK OR EXERCISE: moving boxes, organizing over the weekend 5. CAUSE: I think I injured it 6. OTHER SYMPTOMS: dizziness with standing for 6 months seen by PCP and ordered MRI. Taking Tylenol without relief. Protocols used: Shoulder Glmy-SWDZA-WG documented in this encounter [facility] documented in this encounter [facility] Work Phone: Evaluation note* Diagnosis Right wrist fracture, closed, initial encounter- Primary documented in this encounter [facility] Work Phone: Evaluation note* Diagnosis Acute pain of right knee- Primary Quadriceps weakness Tendinopathy of right gluteus medius Acute pain of right knee documented in this encounter [facility] note* Diagnosis Acute pain of right knee documented in this encounter [facility] note* Diagnosis Hypoxemia- Primary Hypoxemia documented in this encounter [facility] note* Diagnosis Localized swelling, mass and lump, left lower limb documented in this encounter [facility] note* Diagnosis Altered bowel habits- Primary Other symptoms involving digestive system Postprandial epigastric pain Abdominal pain, epigastric Abnormal weight loss Loss of weight documented in this encounter [facility] note* Diagnosis Localized swelling, mass and lump, left lower limb- Primary Localized swelling, mass and lump, left lower limb documented in this encounter [facility] note* Diagnosis Emphysema, unspecified (HCC) documented in this encounter [facility] note* Diagnosis Postprandial epigastric pain Abdominal pain, epigastric documented in this encounter [facility] note* Diagnosis Emphysema, unspecified (HCC)- Primary Emphysema, unspecified (HCC) documented in this encounter [facility] note* Diagnosis Emphysema, unspecified (HCC)- Primary documented in this encounter [facility] Discharge instructions* Attachments The following attachments cannot be sent through Care Everywhere. * Lacerations: [place] ([place]) * Scalp Laceration: [place] or Stitches ([place]) * Alcohol Intoxication: Acute ([place]) * Head Injury: Closed: General Info ([place]) documented in this [facility] Work Phone: Hospital Discharge instructions* Attachments The following attachments cannot be sent through Care Everywhere. * Splint or Immobilizer Use ([place]) * Wrist Fracture ([place]) documented in this [facility] Work Phone: Reason for referral (narrative)* Consultation (Routine) - Authorized Specialty Diagnoses / Procedures Referred By Arianna t Referred To Contact Physical Therapy Diagnoses Acute pain of right knee Quadriceps weakness Tendinopathy of right gluteus medius Procedures [place] OFFICE/OUTPATIENT [facility] 60-74 MINUTES Mana Johnson MD [address] [place] [address] Referral ID Status Reason Start Date Expiration Date Visits Requested Visits Authorized [id number] Authorized Specialty Services Required 12/16/2022 12/16/2023 99 99 [facility] for referral (narrative)* Diagnostic Procedure Only (Routine) - Authorized Specialty Diagnoses / Procedures Referred By Contac t Referred To Contact [facility] Diagnoses Postprandial epigastric pain Procedures US ABD RIGHT UPPER QUADRANT US ABDOMINAL REAL TIME W/IMAGE LIMITED Ellen Holley PA-C [address] [place] [address] Us Imaging Referral ID Status Reason Start Date Expiration Date Visits Requested Visits Authorized [id number] Authorized Auto-Generat ed Referral 04/16/2023 05/15/2024 1 1 * Outpatient Procedure (Routine) - Pending Review Specialty Diagnoses / Procedures Referred By Contac t Referred To Contact [facility] Diagnoses Altered bowel habits Abnormal weight loss Procedures COLONOSCOPY DIAGNOSTIC COLONOSCOPY FLX DX W/COLLJ SPEC WHEN PFRMD Ellen Holley PA-C [address] [place] [address] [facility] [address] [place] [address] Referral ID Status Reason Start Date Expiration Date Visits Requested Visits Authorized [id number] Pending Review Auto-Generat ed Referral 04/16/2023 04/16/2024 1 1 * Outpatient Procedure (Routine) - Pending Review Specialty Diagnoses / Procedures Referred By Contac t Referred To Contact [facility] Diagnoses Abnormal weight loss Postprandial epigastric pain Procedures EGD DIAGNOSTIC ESOPHAGOGASTRODUODENOS COPY TRANSORAL DIAGNOSTIC Ellen Holley PA-C [address] [place] [address] [facility] [place] [address] Referral ID Status Reason Start Date Expiration Date Visits Requested Visits Authorized [id number] Pending Review Auto-Generat ed Referral 04/16/2023 04/16/2024 1 1 [facility] Advance Directives Documents on File Type Date Recorded 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 Advance Directives and Living Will Power of Personal Lines Account Manager Latest Code Status on File Code Status Date Activated Date Inactivated Comments Full Code 06/11/2019 11:34 AM Full Code 06/11/2019 5:07 AM 06/11/2019 11:34 AM Full Code 06/01/2019 10:19 AM 06/01/2019 1:27 PM Full Code 06/01/2019 7:21 AM 06/01/2019 10:19 AM Latest Code Status on File Code Status Date Activated Date Inactivated Comments Full Code 06/11/2019 11:34 AM 06/14/2019 3:36 PM Documents on File Type Date Recorded 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 1955 Admit date: 06/11/2019 Discharge date and time: 06/14/19 Admitting Physician: Foreign Fenton MD Discharge Physician: DEA HARRIS MD Admission Diagnoses: Closed 2-part intertrochanteric fracture of proximal end of right femur, initial encounter ([facility]) [S72.141A] Closed right hip fracture, initial encounter ([facility]) [S72.001A] Discharge Diagnoses: same with hip repair Admission Condition: stable Discharged Condition: stable Indication for Admission: hip fracture Hospital Course: pt admitted with a right hip fracture after a fall at home. She had the hip repaired and was ready to go home. She wants to establish therapy outpatient so we can arrange that through the office tomorrow. Consults: orthopedic surgery Significant Diagnostic Studies: labs: Treatments: asabove Discharge Exam: BP 120/68 Pulse 68 Temp 98.8 F (37.1 C) (Temporal) Resp 18 Ht 5' 7 (1.702 m) Wt 169 lb (76.7 kg) SpO2 94% BMI 26.47 kg/m General appearance: alert, appears stated age and cooperative Lungs: clear to auscultation bilaterally Heart: regular rate and rhythm, S1, S2 normal, no murmur, click, rub or gallop Abdomen: soft, non-tender; bowel sounds normal; no masses, no organomegaly Extremities: extremities normal, atraumatic, no cyanosis or edema Disposition: home Patient Instructions: @MEDDISCHARGE@ Activity: activity as tolerated Diet: regular diet Wound Care: none needed Follow-up with dr martínez as needed Signed: DEA HARRIS 06/12/2019 10:00 AM documented in this encounter Discharge Instructions * Discharge Instr - AGUSTO* Covert, Richelle John RN - 06/13/2019 8:14 AM EDT Continuity of Care Form Patient Name: Sully Perez : 1955 Admit date: 06/11/2019 Discharge date: 06/14/19 Code Status Order: Full Code Advance Directives: Advance Care Flowsheet Documentation Date/Time Healthcare Directive Type of Healthcare Directive Copy in Chart Healthcare Agent Appointed Healthcare Agent's Name Healthcare Agent's Phone Number 06/11/19 0808 No, patient does not have an advance directive for healthcare treatment -- -- -- -- -- 06/11/19 0357 No, patient does not have an advance directive for healthcare treatment -- -- -- -- -- Admitting Physician: Foreign Fenton MD PCP: Vasquez Martínez MD Discharging Nurse: ELIZABETH Peoples Discharging Hospital Unit/Room#: 215/9563 Discharging Unit Emergency Contact: Extended Emergency Contact Information Primary Emergency Contact: luiza perez [place] Relation: Child Past Surgical History: Past Surgical History: Procedure Laterality Date APPENDECTOMY DIAGNOSTIC CARDIAC PUBLIC RELATIONS PROCEDURE 06/01/2019 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 ELBOW SURGERY HEMORRHOID SURGERY HIP SURGERY Right 06/11/2019 SHOULDER SURGERY SINUS SURGERY TONSILLECTOMY Immunization History: There is no immunization history on file for this patient. Active Problems: Patient Active Problem List Diagnosis Code Abnormal nuclear stress test R94.39 Hypertension I10 Closed 2-part intertrochanteric fracture of proximal end of right femur, initial encounter ([facility]) S72.141A Closed right hip fracture, initial encounter ([facility]) S72.001A Isolation/Infection: Isolation No Isolation Nurse Assessment: Last Vital Signs: BP (!) 145/73 Pulse 80 Temp 98.5 F (36.9 C) (Temporal) Resp 16 Ht 5' 7 (1.702 m) Wt 169 lb (76.7 kg) SpO2 93% BMI 26.47 kg/m Last documented pain score (0-10 scale): Pain Level: 4 Last Weight: Wt Readings from Last 1 Encounters: 06/11/19 169 lb (76.7 kg) Mental Status: oriented, alert and coherent IV Access: - None Nursing Mobility/ADLs: Walking Assisted Transfer Assisted Bathing Assisted Dressing Assisted Toileting Independent Feeding Independent Hide Or Skin Buffer Independent Med Delivery whole Wound Care Documentation and Therapy: Elimination: Continence: Bowel: Yes Bladder: Yes Urinary Catheter: None Colostomy/Ileostomy/Ileal Conduit: No Date of Last BM: 06/10/19 Intake/Output Summary (Last 24 hours) at 06/13/2019 0814 Last data filed at 06/12/2019 1004 Gross per 24 hour Intake Output 300 ml Net -300 ml I/O last 3 completed shifts: In: - Out: 1150 [Urine:1150] Safety Concerns: None Impairments/Disabilities: None Nutrition Therapy: Current Nutrition Therapy: - Oral Diet: General Routes of Feeding: Oral Liquids: No Restrictions Daily Fluid Restriction: no Last Modified Barium Swallow with Video (Video Swallowing Test): not done Treatments at the Time of Hospital Discharge: Respiratory Treatments: Oxygen Therapy: is not on home oxygen therapy. Ventilator: - No ventilator support Rehab Therapies: Physical Therapy and Occupational Therapy Weight Bearing Status/Restrictions: Non-weight bearing on right leg Other Medical Equipment (for information only, NOT a DME order): walker Other Treatments: Patient's personal belongings (please select all that are sent with patient): None RN SIGNATURE: MANAGEMENT/SOCIAL WORK SECTION Inpatient Status Date: 06/11/2019 Readmission Risk Assessment Score: Readmission Risk Risk of Unplanned Readmission: 8 Discharging to Facility/ Agency Name: [facility] Address: [address] [place] [address] [place] [address] Dialysis Facility (if applicable) Name: Address: Dialysis Schedule: Phone: Fax: Turntable Worker/Copyright Manager signature: ICIAN SECTION Prognosis: Good Condition at Discharge: Stable Rehab Potential (if transferring to Rehab): Good Recommended Labs or Other Treatments After Discharge: none Physician Certification: I certify the above information and transfer of Sully Perez is necessary for the continuing treatment of the diagnosis listed and that she requires Long-Term Facility for less 30 days. Update Admission H&P: No change in H&P PHYSICIAN SIGNATURE: * Additional Instructions* Willian May MD - 06/11/2019 General Orthopedic Discharge Instructions The following instructions have been prepared to help you when you leave the hospital. These guidelines are for the post-surgery period. Activity: Ease into normal activity as tolerated. Medications: see medication instructions. Please be sure to read and understand the information provided by your pharmacy. Ask your Pharmacist if any questions. Wound Care and Hygiene: -Wash hands before touching or changing dressings -Do Not touch incision -Leave dressing till post-op day 10 and reapply dressing if wound is leaking. If wound is dry, you may leave dressing off -May shower starting post-op day 3 Splint Care: -Keep your splint clean and dry -Do not weight bear with your splint on unless specifically instructed by your surgeon -Do not unwrap splint, your surgeon will remove it on followup Call Your Doctor for: -Excessive bleeding/swelling of incision -Fever with temperature above 100 oF Anesthesia Precautions: -Do Not operate any vehicle (automobile, bicycle, motorcycle) or power tools for 24 hours -Do Not drink alcoholic beverages for 24 hours -As precaution to prevent post-operative nausea and vomiting, start your diet with liquids, then progress to light foods. If tolerated, resume normal diet. Additional Instructions: WBAT documented in this encounter* Attachments The following attachments cannot be sent through Care Everywhere. * Cervical Strain ([place]) * Nose Fracture ([place]) * Head Injury: Closed: General Info ([place]) documented in this encounter History of Present Illness * Morena Moses, INVESTIGATOR INTERNAL AFFAIRS - 06/14/2019 10:22 AM EDT Physical Therapy Facility/Department: [facility] Daily Treatment Note NAME: Sully Perez : 1955 Date of Service: 06/14/2019 Discharge Recommendations: Continue to assess pending progress, IP Rehab Assessment Assessment: Pt continues to demonstrate small improvement in transfers and mobility with less assist needed and smoother gait. Still limits WBing on R LE. Pt able to complete exercises with less assist as well. PT will benefit from continued therapy to further increase strength and functional mobility. REQUIRES PT FOLLOW UP: Yes Activity Tolerance Activity Tolerance: Patient limited by pain;Patient limited by fatigue Patient Diagnosis(es): The primary encounter diagnosis was Closed 2-part intertrochanteric fractureof right femur, initial encounter ([facility]). Diagnoses of Right hip pain, Fall from ground level, Abnormal nuclear stress test, and Closed 2-part intertrochanteric fracture of proximal end of right femur, initial encounter ([facility]) were also pertinent to this visit. has a past medical history of Arthritis, Back pain, Chronic cervical pain, Chronic pain of left hand, Hypertension, and Knee pain, right. has a past surgical history that includes Tonsillectomy; Appendectomy; Elbow surgery; sinus surgery; Hemorrhoid surgery; Diagnostic Cardiac Auricular Therapist Procedure (06/01/2019); shoulder surgery; and hip surgery (Right, 06/11/2019). Restrictions Restrictions/Precautions Restrictions/Precautions: Weight Bearing, General Precautions, Fall Risk(baeza) Lower Extremity Weight Bearing Restrictions Right Lower Extremity Weight Bearing: Weight Bearing As Tolerated Subjective General Chart Reviewed: Yes Family / Caregiver Present: No Subjective Subjective: Pt continues to remain eager for transfer. Pain Assessment Pain Assessment: 0-10 Pain Level: 3 Pain Type: Surgical pain Pain Location: Hip Pain Orientation: Right Non-Pharmaceutical Pain Intervention(s): Ambulation/Increased Activity;Repositioned Objective Transfers Sit to Stand: Stand by assistance Stand to sit: Stand by assistance Comment: of 1 for safety with slow transition and good hand placement Ambulation WB Status: WBAT RLE Ambulation 1 Device: Rolling Walker Assistance: Stand by assistance(of 1 for safety) Quality of Gait: Pt walks with a step to pattern and slow pace. No instability and noted increased WBing on R LE but still not full. Distance: 80' x 1 Exercises Quad Sets: 1 set / 20 reps in reclined R LE Heelslides: 1 set / 20 reps in reclined R LE Gluteal Sets: 1 set / 20 reps in sitting Hip Abduction: 1 set / 20 reps in reclined R LE with assist to decrease friction Knee Long Arc Quad: 1 set / 20 reps in sitting R LE Ankle Pumps: 1 set / 20 reps in sitting B LE Goals Short term goals Time Frame for Short term goals: 5 visits Short term goal 1: Pt will complete 2-3 sets/10 reps of LE exercises to improve LE strength (partially met) Short term goal 2: Pt will complete supine<->sit at supervision to improve bed mobility (NA) Short term goal 3: Pt will complete sit<->stand with FWW at supervision in preparation for mobility (partially met) Short term goal 4: Pt will ambulate at least 40'x2 with FWW at supervision to improve functional mobility (partially met) Short term goal 5: Pt will ascend/descend 1 stair with railing at SBA for entrance into home (NA) Patient Goals Patient goals : to go home Plan Plan Times per week: 2 visits Times per day: Daily Current Treatment Recommendations: (Cont unless discharged) Safety Devices Type of devices: All fall risk precautions in place, Gait belt, Left in chair, Call light within reach Therapy Time Individual Concurrent Group Co-treatment Time In 0950 Time Out 1020 Minutes 30 Timed Code Treatment Minutes: 23 Minutes(ther ex and gait) Morena Moses PTA * Lisa Dsouza OTA - 06/13/2019 11:40 AM EDT Occupational Therapy Facility/Department: [facility] Daily Treatment Note NAME: Sully Perez : 1955 Date of Service: 06/13/2019 Discharge Recommendations: IP Rehab, Continue to assess pending progress(vs [facility]) Attempt to treat. Pt awake in bed and states that her daughter is on her way with lunch and pt requests to be allowed to visit and eat with her daughter. Pt request to be seen later if she is not discharged to SNF today. Will continue to follow and attempt to treat again. MELISSA Mansfield/Sandra * Morena Moses, INVESTIGATOR INTERNAL AFFAIRS - 06/13/2019 8:58 AM EDT Physical Therapy Facility/Department: [facility] Daily Treatment Note NAME: Sully Perez : 1955 Date of Service: 06/13/2019 Discharge Recommendations: Continue to assess pending progress, IP Rehab Assessment Assessment: Pt making gradual gains with activity with reports of less spasms with movement but still feeling stiff. Pt limits WBing on R LE secondary to pain. Pt able to perform ther ex with guidance/light assist. Pt will benefit from continued therapy to further increase strength and functional mobility. REQUIRES PT FOLLOW UP: Yes Activity Tolerance Activity Tolerance: Patient limited by pain;Patient limited by fatigue;Patient limited by endurance Patient Diagnosis(es): The primary encounter diagnosis was Closed 2-part intertrochanteric fractureof right femur, initial encounter ([facility]). Diagnoses of Right hip pain, Fall from ground level, Abnormal nuclear stress test, and Closed 2-part intertrochanteric fracture of proximal end of right femur, initial encounter ([facility]) were also pertinent to this visit. has a past medical history of Arthritis, Back pain, Chronic cervical pain, Chronic pain of left hand, Hypertension, and Knee pain, right. has a past surgical history that includes Tonsillectomy; Appendectomy; Elbow surgery; sinus surgery; Hemorrhoid surgery; Diagnostic Cardiac Auricular Therapist Procedure (06/01/2019); shoulder surgery; and hip surgery (Right, 06/11/2019). Restrictions Restrictions/Precautions Restrictions/Precautions: Weight Bearing, General Precautions, Fall Risk(baeza) Lower Extremity Weight Bearing Restrictions Right Lower Extremity Weight Bearing: Weight Bearing As Tolerated Subjective General Chart Reviewed: Yes Family / Caregiver Present: No Subjective Subjective: Pt agreeable. Reports leg feeling stiff. Pt also eager to be transferred to facility. Pain Assessment Pain Assessment: 0-10 Pain Level: 3(Increased to 4 with activity) Pain Type: Surgical pain Pain Location: Hip Pain Orientation: Right Non-Pharmaceutical Pain Intervention(s): Ambulation/Increased Activity;Repositioned Objective Bed mobility Supine to Sit: Minimal assistance(of 1 to guide R LE to edge of bed as pt slowly manuevers with SBAfor trunk.) Transfers Sit to Stand: Minimal Assistance;Stand by assistance Stand to sit: Minimal Assistance;Stand by assistance Comment: of 1 for safety with cueing for proper hand placement for safety. No instability noted andtranstitions are slow. Ambulation WB Status: WBAT RLE Ambulation 1 Device: Rolling Walker Assistance: Minimal assistance;Stand by assistance(of 1 for safety) Quality of Gait: Pt walks with a step to pattern with limited WBing on R LE ( <30%). Movement isslow with minimal flexing of LE's. Distance: 30' x 1, 10' x 1 and 20; x 1 Exercises Quad Sets: 1 set / 20 reps in supine R LE Heelslides: 1 set / 20 reps in supine R LE with light assist Gluteal Sets: 1 set / 20 reps in supine Hip Abduction: 1 set / 20 reps in supine R LE with assist to decrease friction Knee Short Arc Quad: 1 set / 20 reps in supine R LE Ankle Pumps: 1 set / 20 reps in supine R LE Goals Short term goals Time Frame for Short term goals: 5 visits Short term goal 1: Pt will complete 2-3 sets/10 reps of LE exercises to improve LE strength (partially met) Short term goal 2: Pt will complete supine<->sit at supervision to improve bed mobility (partially met) Short term goal 3: Pt will complete sit<->stand with FWW at supervision in preparation for mobility (partially met) Short term goal 4: Pt will ambulate at least 40'x2 with FWW at supervision to improve functional mobility (partially met) Short term goal 5: Pt will ascend/descend 1 stair with railing at SBA for entrance into home (NA) Patient Goals Patient goals : to go home Plan Plan Times per week: 3 visits Times per day: Daily Current Treatment Recommendations: (Cont ther ex and functional training unless discharged) Safety Devices Type of devices: All fall risk precautions in place, Gait belt, Left in chair, Call light within reach, Patient at risk for falls Therapy Time Individual Concurrent Group Co-treatment Time In 0755 Time Out 0842 Minutes 47 Timed Code Treatment Minutes: 40 Minutes(2 ther ex and gait) Morena Moses PTA * Nicolas Henriquez MD - 06/13/2019 6:32 AM EDT [facility] MED SURG [address] [facility] [address] Dept: [phone] Loc: [phone] Orthopedic Progress Note Name: Sully Perez Date:06/13/2019 Attending:Foreign Fenton, * Subjective Able to weight bear on the right yesterday. Objective Vitals: Vitals: 06/12/19 1717 06/12/19 1949 06/12/19 2313 06/13/19 0424 BP: 128/61 109/73 133/67 (!) 145/73 Pulse: 70 73 66 80 Resp: 20 18 18 16 Temp: 99.1 F (37.3 C) 98 F (36.7 C) 98 F (36.7 C) 98.5 F (36.9 C) TempSrc: Temporal Temporal Temporal Temporal SpO2: 93% 95% 93% 93% Weight: Height: Physical Exam: General: NAD RLE Dressing/Skin: minor spotting, otherwise Clean/Dry/Intact SILT: Saphenous/Superficial Peroneal/Deep Peroneal/Tibial/Sural distributions Motor: +Dorsiflexion/Plantarflexion/Great toe extension Pulses: Palpable DP LABS: Recent Labs 06/11/19 01506/12/198 06/13/19417 WBC 12.5* 11.2* 10.6 HGB 14.0 10.9* 11.0* HCT 41.0 32.3* 32.6* PLT 320 258 276 Recent Labs 06/11/19150 NA 140 K 3.7 CL 107 CO2 23 BUN 12 CREATININE 0.65 CALCIUM 9.2 Recent Labs 10/05/19 0151 INR 1.0 No results for input(s): SEDRATE, CRP in the last 72 hours. No results for input(s): HCG in the last 72 hours. Assessment Sully is a 63 y.o.female s/p 06/11 Intertan nailing of right hip Plan WBAT DVT prophylaxis-ASA 81 mg BID Follow up 2wks Ortho will sign off at this time. Please page the resident archivist [employer] with issues * Elma Marroquin RD, MILO - 06/12/2019 3:30 PM EDT Nutrition screen complete. Chart/labs reviewed. Pt assigned level one for nutrition care DTR to monitor and follow up * Aan Ordonez OTA - 06/12/2019 11:16 AM EDT Occupational Therapy Facility/Department: [facility] MED SURG Daily Treatment Note NAME: Sully Perez : 1955 Date of Service: 06/12/2019 Discharge Recommendations: IP Rehab, Continue to assess pending progress(vs [facility]) Assessment Assessment: Pt in 03/16 pain but willing to participate in therapy. Reports pain and stiffness when walking and walks slowly with the FWW. Unsteady but no true LOB. Pt stood at the sink for 3-4 min for ADL's and is min assist with LB dressing while sitting in the chair. Pt limited by pain and fatigue. Would benefit from IP rehab to increase strength and endurance needed for ADL's and safe transfers prior to homegoing. REQUIRES OT FOLLOW UP: Yes Safety Devices Safety Devices in place: Yes Type of devices: All fall risk precautions in place;Left in chair;Nurse notified;Patient at risk for falls;Call light within reach;Gait belt Patient Diagnosis(es): The primary encounter diagnosis was Closed 2-part intertrochanteric fractureof right femur, initial encounter ([facility]). Diagnoses of Right hip pain, Fall from ground level, Abnormal nuclear stress test, and Closed 2-part intertrochanteric fracture of proximal end of right femur, initial encounter ([facility]) were also pertinent to this visit. has a past medical history of Arthritis, Back pain, Chronic cervical pain, Chronic pain of left hand, Hypertension, and Knee pain, right. has a past surgical history that includes Tonsillectomy; Appendectomy; Elbow surgery; sinus surgery; Hemorrhoid surgery; Diagnostic Cardiac Auricular Therapist Procedure (06/01/2019); shoulder surgery; and hip surgery (Right, 06/11/2019). Restrictions Restrictions/Precautions Restrictions/Precautions: Weight Bearing, General Precautions, Fall Risk(baeza) Lower Extremity Weight Bearing Restrictions Right Lower Extremity Weight Bearing: Weight Bearing As Tolerated Subjective General Chart Reviewed: Yes Family / Caregiver Present: No Subjective Subjective: Pt anxious upon first approach. Wanting her baeza cath out. Pleasant and cooperative for therapy. General Comment Comments: Nursing came in to medicate pt and to remove baeza cath. Pain Assessment Pain Level: 8 Pain Type: Surgical pain Pain Location: Hip Pain Orientation: Right Vital Signs Patient Currently in Pain: Yes Objective ADL Grooming: Stand by assistance(Stood at the sink to brush teeth and hair. ) LE Bathing: Moderate assistance(Stood a the sink for LB alhaji-care.) LE Dressing: Minimal assistance(Assist needed with socks. Pt instructed on use of sock aid and under cutting machine operator. Pt had never used one before. Cues for technique. ) Toileting: (NA. Baeza cath just removed. ) Additional Comments: Pt c/o 7/10 pain in R upper leg and had poor tolerance for sitting upright andengaging in LB dressing. Ice provided for pain. Balance Sitting Balance: Modified independent (In chair.) Standing Balance: Contact guard assistance(Stood at the sink with CGA for safety. Pt reports she fell at home due to her eyes and just fell backward . No LOB this date. ) Standing Balance Time: 3-4 min Activity: grooming at the sink Comment: Fatigue quickly and c/o 7/10 pain. Unable to complete further ADL's due to needing to sit down. Functional Mobility Functional - Mobility Device: Rolling Walker Activity: Other(Sink and back.) Assist Level: Contact guard assistance Functional Mobility Comments: Pt walks slowly and does not put much weight on her RLE due to pain. Unsteady but no true LOB. Toilet Transfers Toilet Transfers Comments: NA. Pt in too much pain for a second walk into the bathroom. FWW left inpatient's room and nursing and pt aware she can walk to the bathroom with assist from nursing. Baeza cath just removed. Bed mobility Comment: Up in the chair. Transfers Stand to sit: Contact guard assistance Cognition Overall Cognitive Status: WFL Plan Plan Times per week: 5 visits Times per day: Daily Current Treatment Recommendations: Strengthening, Balance Training, Endurance Training, Patient/Caregiver Education & Training, Other (comment), Home Management Training, Self-Care / ADL, Functional Mobility Training(ther act) Goals Short term goals Time Frame for Short term goals: 6 visits Short term goal 1: pt will complete safe functional transfers and mobility with FWW mod independent. progressing Short term goal 2: pt will complete toileting and toilet transfer mod independent. NA Short term goal 3: pt will complete LB ADLs with AE mod independent. progressing Short term goal 4: pt will complete bed mobility mod independent. NA Short term goal 5: pt will complete ADL at sink level mod independent. progressing Patient Goals Patient goals : to go home Therapy Time Individual Concurrent Group Co-treatment Time In 956 Time Out 1043 Minutes 46 Timed Code Treatment Minutes: 42 Minutes(adl,2 and ther act,1) LASHONDA Almonte * Gonzalo Eller, PT - 06/12/2019 10:56 AM EDT Physical Therapy Facility/Department: [facility] SUR[facility] Daily Treatment Note NAME: Sully Perez : 1955 Date of Service: 06/12/2019 Discharge Recommendations: Continue to assess pending progress, IP Rehab PT Equipment Recommendations Other: pt owns FWW Assessment Body structures, Functions, Activity limitations: Decreased functional mobility ;Decreased strength;Decreased safe awareness;Decreased balance;Increased pain Assessment: Pt presents with decreased functional mobility, requiring light assist for transfers and ambulation. Pt has decreased standing balance and safety awareness, in addition to increased pain,placing pt at risk of falls. Pt is expected to benefit from skilled therapy to address functional mobility, strength, balance, and safety awareness Prognosis: Good History: Pt admitted s/p fall with R femur fx, s/p R hip nailing Clinical Presentation: Pt admitted s/p fall with R femur fx, s/p R hip nailing. Pt has a PMH as listed above that contributes to clinical presentation. Pt is expected to tolerate intensive skilled therapy PT Education: Goals;PT Role;Plan of Care;Precautions;General Safety;Weight- bearing Education;Transfer Training REQUIRES PT FOLLOW UP: Yes Activity Tolerance Activity Tolerance: Patient limited by pain;Patient limited by fatigue;Patient limited by endurance Patient Diagnosis(es): The primary encounter diagnosis was Closed 2-part intertrochanteric fractureof right femur, initial encounter ([facility]). Diagnoses of Right hip pain, Fall from ground level, Abnormal nuclear stress test, and Closed 2-part intertrochanteric fracture of proximal end of right femur, initial encounter ([facility]) were also pertinent to this visit. has a past medical history of Arthritis, Back pain, Chronic cervical pain, Chronic pain of left hand, Hypertension, and Knee pain, right. has a past surgical history that includes Tonsillectomy; Appendectomy; Elbow surgery; sinus surgery; Hemorrhoid surgery; Diagnostic Cardiac Auricular Therapist Procedure (06/01/2019); shoulder surgery; and hip surgery (Right, 06/11/2019). Restrictions Restrictions/Precautions Restrictions/Precautions: Weight Bearing, General Precautions, Fall Risk(baeza) Lower Extremity Weight Bearing Restrictions Right Lower Extremity Weight Bearing: Weight Bearing As Tolerated Subjective General Chart Reviewed: Yes Family / Caregiver Present: No Subjective Subjective: Pt is agreeable to therapy Pain Screening Patient Currently in Pain: Yes Pain Assessment Pain Assessment: 0-10 Pain Level: 3 Pain Type: Surgical pain Pain Location: Hip Pain Orientation: Right Vital Signs Patient Currently in Pain: Yes Orientation Orientation Overall Orientation Status: Within Functional Limits Cognition Cognition Overall Cognitive Status: WFL Objective Bed mobility Supine to Sit: Minimal assistance Sit to Supine: Minimal assistance Scooting: Contact guard assistance Transfers Sit to Stand: Minimal Assistance(cues for handplacement) Stand to sit: Minimal Assistance(cues to reach back) Ambulation Ambulation?: Yes WB Status: WBAT RLE Ambulation 1 Device: Rolling Walker Assistance: Contact guard assistance Quality of Gait: pt demonstrates step to pattern with slow lenny, decreased R stance phase Gait Deviations: Slow Lenny Distance: 20'x1,5 ft x1 Stairs/Curb Stairs?: No Balance Posture: Good Sitting - Static: Good Sitting - Dynamic: Good Standing - Static: Fair;+(with fww) Standing - Dynamic: Fair(with fww) Exercises Quad Sets: 1set/20reps Heelslides: 2sets/1o RL ARROM Gluteal Sets: 1set/20reps Knee Long Arc Quad: 2sets/10reps RL Knee Short Arc Quad: 2sets/10reps RLE Goals Short term goals Time Frame for Short term goals: 5 visits Short term goal 1: Pt will complete 2-3 sets/10 reps of LE exercises to improve LE strength (partially met) Short term goal 2: Pt will complete supine<->sit at supervision to improve bed mobility (not met) Short term goal 3: Pt will complete sit<->stand with FWW at supervision in preparation for mobility (not met) Short term goal 4: Pt will ambulate at least 40'x2 with FWW at supervision to improve functional mobility (not met) Short term goal 5: Pt will ascend/descend 1 stair with railing at SBA for entrance into home (NA) Patient Goals Patient goals : to go home Plan Plan Times per week: 4 visits Times per day: Daily Current Treatment Recommendations: Strengthening, Balance Training, Functional Mobility Training, Transfer Training, Gait Training, Stair training, Pain Management, Home Exercise Program, Safety Education & Training, Patient/Caregiver Education & Training, Equipment Evaluation, Education, & procurement, Positioning Plan Comment: Goals and/or treatment plan were established in collaboration with patient Safety Devices Type of devices: All fall risk precautions in place, Call light within reach, Gait belt, Patient atrisk for falls, Left in chair Restraints Initially in place: No Therapy Time Individual Concurrent Group Co-treatment Time In 0924 Time Out 0950 Minutes 26 Timed Code Treatment Minutes: 25 Minutes(gait and therex) Gonzalo Eller PT * Willian May MD - 06/12/2019 7:16 AM EDT [facility] MED SURG [address] [facility] [address] Dept: [phone] Loc: [phone] Orthopedic Progress Note Name: Sully Perez Date:06/12/2019 Attending:Foreign Fenton, * Subjective CORNELIO. No events o/n. Objective Vitals: Vitals: 06/11/19 1520 06/11/19 1924 06/11/19 2306 06/12/19 0333 BP: 127/67 135/66 135/70 122/85 Pulse: 86 65 74 78 Resp: 18 18 20 18 Temp: 98.9 F (37.2 C) 99.3 F (37.4 C) 98.9 F (37.2 C) 98.9 F (37.2 C) TempSrc: Temporal Temporal Temporal Temporal SpO2: 92% 91% 91% 94% Weight: Height: Physical Exam: General: NAD RLE Dressing/Skin: minor spotting, otherwise Clean/Dry/Intact SILT: Saphenous/Superficial Peroneal/Deep Peroneal/Tibial/Sural distributions Motor: +Dorsiflexion/Plantarflexion/Great toe extension Pulses: Palpable DP LABS: Recent Labs 06/11/19 0151 06/12/19 0428 WBC 12.5* 11.2* HGB 14.0 10.9* HCT 41.0 32.3* PLT 320 258 Recent Labs 06/11/19 015 NA 140 K 3.7 CL 107 CO2 23 BUN 12 CREATININE 0.65 CALCIUM 9.2 Recent Labs 06/11/19 015 INR 1.0 No results for input(s): SEDRATE, CRP in the last 72 hours. No results for input(s): HCG in the last 72 hours. Assessment Sully is a 63 y.o.female s/p 10/ Intertan nailing of right hip Plan WBAT Abx x 24hrs DVT prophylaxis Follow up 2wks * Bernice Dobson, PT - 06/11/2019 2:49 PM EDT Physical Therapy Facility/Department: [facility] Initial Assessment NAME: Sully Perez : 1955 Date of Service: 06/11/2019 Discharge Recommendations: Continue to assess pending progress, IP Rehab PT Equipment Recommendations Equipment Needed: No Other: pt owns FWW Assessment Body structures, Functions, Activity limitations: Decreased functional mobility ;Decreased strength;Decreased safe awareness;Decreased balance;Increased pain Assessment: Pt presents with decreased functional mobility, requiring light assist for transfers and ambulation. Pt has decreased standing balance and safety awareness, in addition to increased pain,placing pt at risk of falls. Pt is expected to benefit from skilled therapy to address functional mobility, strength, balance, and safety awareness Prognosis: Good Decision Making: Medium Complexity History: Pt admitted s/p fall with R femur fx, s/p R hip nailing Exam: AM-PAC Clinical Presentation: Pt admitted s/p fall with R femur fx, s/p R hip nailing. Pt has a PMH as listed above that contributes to clinical presentation. Pt is expected to tolerate intensive skilled therapy PT Education: Goals;PT Role;Plan of Care;Precautions;General Safety;Weight- bearing Education;Transfer Training REQUIRES PT FOLLOW UP: Yes Activity Tolerance Activity Tolerance: Patient limited by pain Patient Diagnosis(es): The primary encounter diagnosis was Closed 2-part intertrochanteric fractureof right femur, initial encounter ([facility]). Diagnoses of Right hip pain and Fall from ground level were also pertinent to this visit. has a past medical history of Arthritis, Back pain, Chronic cervical pain, Chronic pain of left hand, Hypertension, and Knee pain, right. has a past surgical history that includes Tonsillectomy; Appendectomy; Elbow surgery; sinus surgery; Hemorrhoid surgery; Diagnostic Cardiac Auricular Therapist Procedure (06/01/2019); shoulder surgery; and hip surgery (Right, 06/11/2019). Restrictions Restrictions/Precautions Restrictions/Precautions: Weight Bearing, General Precautions, Fall Risk(baeza cath) Lower Extremity Weight Bearing Restrictions Right Lower Extremity Weight Bearing: Weight Bearing As Tolerated Vision/Hearing Vision: Impaired Vision Exceptions: (pt awaiting vision surgery, pt sees better in low lighting) Hearing: Within functional limits Subjective General Chart Reviewed: Yes Patient assessed for rehabilitation services?: Yes Subjective Subjective: Pt is agreeable to therapy Pain Screening Patient Currently in Pain: Yes Pain Assessment Pain Assessment: 0-10 Pain Level: 3 Pain Type: Surgical pain Pain Location: Hip Pain Orientation: Right Social/Functional History Social/Functional History Lives With: Spouse Type of Home: Mobile home Home Layout: One level Home Access: Stairs to enter with rails, Stairs to enter without rails Entrance Stairs - Number of Steps: 5 Bathroom Shower/Tub: Tub/Shower unit Bathroom Toilet: Handicap height Bathroom Equipment: Shower chair Home Equipment: Rolling walker, Wheelchair-manual, Cane ADL Assistance: Independent Homemaking Assistance: Independent Ambulation Assistance: Independent(no device) Transfer Assistance: Independent Active Web Design Specialist: Yes Additional Comments: pt may be staying at daughter's upon discharge-first floor setup, 1 step to enter Objective Observation/Palpation Observation: R hip dressing dry and intact AROM RLE (degrees) RLE AROM: WFL AROM LLE (degrees) LLE AROM : WFL Strength RLE Comment: observed functionally Strength LLE Comment: observed functionally Sensation Overall Sensation Status: WFL Bed mobility Supine to Sit: Minimal assistance(assist with RLE) Sit to Supine: Unable to assess(pt sitting in chair post session ) Comment: denies dizziness Transfers Sit to Stand: Minimal Assistance(to FWW) Stand to sit: Minimal Assistance Comment: denies dizziness Ambulation Ambulation?: Yes WB Status: WBAT RLE Ambulation 1 Device: Rolling Walker Assistance: Minimal assistance Quality of Gait: pt demonstrates step to pattern with slow lenny, decreased R stance phase Distance: 20'x1 Stairs/Curb Stairs?: No Balance Posture: Good Sitting - Static: Good Sitting - Dynamic: Good Standing - Static: Fair;+ Standing - Dynamic: Fair Plan Plan Times per week: 5 visits Times per day: Daily Current Treatment Recommendations: Strengthening, Balance Training, Functional Mobility Training, Transfer Training, Gait Training, Stair training, Pain Management, Home Exercise Program, Safety Education & Training, Patient/Caregiver Education & Training, Equipment Evaluation, Education, & procurement, Positioning Plan Comment: Goals and/or treatment plan were established in collaboration with patient Safety Devices Type of devices: All fall risk precautions in place, Call light within reach, Gait belt, Patient atrisk for falls, Left in chair OutComes Score [facility] Mobility Inpatient How much difficulty turning over in bed?: A Little How much difficulty sitting down on / standing up from a chair with arms?: A Little How much difficulty moving from lying on back to sitting on side of bed?: A Little How much help from another person moving to and from a bed to a chair?: A Little How much help from another person needed to walk in hospital room?: A Little How much help from another person for climbing 3-5 steps with a railing?: A Lot [facility] Inpatient Mobility Raw Score : 17 [facility] Inpatient T-Scale Score : 42.13 Mobility Inpatient CMS 0-100% Score: 50.57 Mobility Inpatient CMS G-Code Modifier : CK AM-PAC Score AM-PAC Inpatient Mobility Raw Score : 17 (06/11/191436) AM-PAC Inpatient T-Scale Score : 42.13 (06/11/191436) Mobility Inpatient CMS 0-100% Score: 50.57 (06/11/191436) Mobility Inpatient CMS G-Code Modifier : CK (06/11/191436) Goals Short term goals Time Frame for Short term goals: 5 visits Short term goal 1: Pt will complete 2-3 sets/10 reps of LE exercises to improve LE strength Short term goal 2: Pt will complete supine<->sit at supervision to improve bed mobility Short term goal 3: Pt will complete sit<->stand with FWW at supervision in preparation for mobility Short term goal 4: Pt will ambulate at least 40'x2 with FWW at supervision to improve functional mobility Short term goal 5: Pt will ascend/descend 1 stair with railing at SBA for entrance into home Patient Goals Patient goals : to go home Therapy Time Individual Concurrent Group Co-treatment Time In 1336 Time Out 1357 Minutes 21 Bernice Dobson PT, DPT * Anjelica Cohen OTR/Sandra - 06/11/2019 2:34 PM EDT Occupational Therapy Occupational Therapy Initial Assessment Date: 06/11/2019 Patient Name: Sully Perez : 1955 Date of Service: 06/11/2019 Discharge Recommendations: IP Rehab, Continue to assess pending progress(vs [facility]) OT Equipment Recommendations Other: TBD Assessment Performance deficits / Impairments: Decreased functional mobility ;Decreased safe awareness;Decreased endurance;Decreased balance;Decreased high-level IADLs;Decreased ADL status Assessment: OT eval complete, pt tolerated session well. pt presents with decreased endurance, dynamic balance, functional independence and safety. pt requires min assist with functional transfers and mobility, pt would benefit from cont OT services, Recommend IP rehab vs HHC pending progress Prognosis: Good Decision Making: Medium Complexity History: pt presents [facility] with fall at home d/t dizziness, pt with R hip pain, imaging (+) R femur fx; s/p R hip nailing on 06/11/19, pt WBAT RLE Assistance / Modification: min REQUIRES OT FOLLOW UP: Yes Activity Tolerance Activity Tolerance: Patient Tolerated treatment well Safety Devices Safety Devices in place: Yes Type of devices: All fall risk precautions in place;Left in chair;Nurse notified;Patient at risk for falls;Call light within reach Patient Diagnosis(es): The primary encounter diagnosis was Closed 2-part intertrochanteric fractureof right femur, initial encounter ([facility]). Diagnoses of Right hip pain and Fall from ground level were also pertinent to this visit. has a past medical history of Arthritis, Back pain, Chronic cervical pain, Chronic pain of left hand, Hypertension, and Knee pain, right. has a past surgical history that includes Tonsillectomy; Appendectomy; Elbow surgery; sinus surgery; Hemorrhoid surgery; Diagnostic Cardiac Auricular Therapist Procedure (06/01/2019); shoulder surgery; and hip surgery (Right, 06/11/2019). Restrictions Restrictions/Precautions Restrictions/Precautions: Weight Bearing, General Precautions, Fall Risk(baeza cath) Lower Extremity Weight Bearing Restrictions Right Lower Extremity Weight Bearing: Weight Bearing As Tolerated Subjective General Chart Reviewed: Yes Patient assessed for rehabilitation services?: Yes Family / Caregiver Present: No Subjective Subjective: Pt resting in bed when OT entered, agreeable to OT eval Social/Functional History Social/Functional History Lives With: Spouse Type of Home: Mobile home Home Layout: One level Home Access: Stairs to enter with rails, Stairs to enter without rails Entrance Stairs - Number of Steps: 5 Bathroom Shower/Tub: Tub/Shower unit Bathroom Toilet: Handicap height Bathroom Equipment: Shower chair Home Equipment: Rolling walker, Wheelchair-manual, Cane ADL Assistance: Independent Homemaking Assistance: Independent Ambulation Assistance: Independent(no device) Transfer Assistance: Independent Active Web Design Specialist: Yes Additional Comments: pt may be staying at daughter's upon discharge-first floor setup, 1 step to enter Objective Vision: Impaired Vision Exceptions: (pt is awaiting surgical intervention for vision) Hearing: Within functional limits Orientation Overall Orientation Status: Within Functional Limits Observation/Palpation Posture: Good Observation: R hip dressing dry and intact Balance Sitting Balance: Supervision Standing Balance: Minimal assistance(w/FWW) Functional Mobility Functional - Mobility Device: Rolling Walker Activity: Other(in room, ~8 ft x2) Assist Level: Minimal assistance Functional Mobility Comments: pt with heavy reliance of alfonzo UE on FWW for stability, pt requiring x1 rest break, step to gait, no LOB, pt denied dizziness ADL Feeding: Independent Grooming: Minimal assistance UE Bathing: Supervision LE Bathing: Maximum assistance UE Dressing: Supervision LE Dressing: Maximum assistance Toileting: Maximum assistance Additional Comments: pt unable to bend to alfonzo LE at this time, this OT assisted donning pants seated EOB and pt required assist to pulley man alfonzo hips in standing Tone RUE RUE Tone: Normotonic Tone LUE LUE Tone: Normotonic Coordination Movements Are Fluid And Coordinated: Yes Bed mobility Supine to Sit: Minimal assistance Scooting: Minimal assistance Comment: assist to manage RLE Transfers Sit to stand: Minimal assistance Stand to sit: Minimal assistance Transfer Comments: pt able to push with alfonzo UE from bed to assist with standing, min verbal cues Cognition Overall Cognitive Status: WFL Perception Overall Perceptual Status: WFL Sensation Overall Sensation Status: WFL LUE PROM (degrees) LUE PROM: WFL LUE AROM (degrees) LUE AROM : WFL RUE PROM (degrees) RUE PROM: WFL RUE AROM (degrees) RUE AROM : WFL LUE Strength Gross LUE Strength: WFL L Hand General: 5/5 RUE Strength Gross RUE Strength: WFL R Hand General: 5/5 Plan Plan Times per week: 6 visits Times per day: Daily Current Treatment Recommendations: Strengthening, Balance Training, Endurance Training, Patient/Caregiver Education & Training, Other (comment), Home Management Training, Self-Care / ADL, Functional Mobility Training(ther act) Patient's Occupational Therapy Plan of Care supervision is transferred to [facility] Occupational Therapist. Goals and/or treatment plan was established in collaboration with patient/family/other representatives. AM-PAC Score AM-PAC Inpatient Daily Activity Raw Score: 16 (06/11/191433) AM-PAC Inpatient ADL T-Scale Score : 35.96 (06/11/191433) ADL Inpatient CMS 0-100% Score: 53.32 (06/11/191433) ADL Inpatient CMS G-Code Modifier : CK (06/11/191433) Goals Short term goals Time Frame for Short term goals: 6 visits Short term goal 1: pt will complete safe functional transfers and mobility with FWW mod independent Short term goal 2: pt will complete toileting and toilet transfer mod independent Short term goal 3: pt will complete LB ADLs with AE mod independent Short term goal 4: pt will complete bed mobility mod independent Short term goal 5: pt will complete ADL at sink level mod independent Patient Goals Patient goals : to go home Therapy Time Individual Concurrent Group Co-treatment Time In 1336 Time Out 1357 Minutes 21 Anjelica Cohen OTR/L * Annmarie Viramontes RN - 06/11/2019 10:54 AM EDT disch criteria met, pt denies pain or nausea, report to Opal randolph, transport called, pt's family @ bedside * Annmarie Viramontes RN - 06/11/2019 10:47 AM EDT Pr denies pain when questioned * Annmarie Viramontes RN - 06/11/2019 10:33 AM EDT Pt's family vs * Annmarie Viramontes RN - 06/11/2019 10:31 AM EDT Attempted to wean o2, spo2 @ 89%, o2 reapplied * Annmarie Viramontes RN - 06/11/2019 10:[address] warren notified of cont pain & bp elevation, orders received & read back * Annmarie Viramontes RN - 06/11/2019 10:00 AM EDT Arrived in pacu via bed, monitoron with alarms on & shows nsr, pt medicated by Dr Warren documented in this encounter Assessments Diagnosis Closed 2-part intertrochanteric fracture of right femur, initial encounter ([facility])- Primary Right hip pain Pain in joint, pelvic region and thigh Fall from ground level Abnormal nuclear stress test Other nonspecific abnormal cardiovascular system function study Closed right hip fracture, initial encounter ([facility]) Diagnosis Closed displaced intertrochanteric fracture of right femur with routine healing Aftercare for healing traumatic fracture of hip Right hip pain Pain in joint, pelvic region and thigh Diagnosis Injury of head, initial encounter Closed fracture of nasal bone, initial encounter Strain of neck muscle, initial encounter Summary Purpose Family History No Family History Records FoundNo Family History Records FoundNo Family History Records FoundNo Family History Records FoundNo Family History Records Found Reason for Referral Specialty Diagnoses / Procedures Referred By Contluo t Referred To Contact Cardiology Diagnoses Emphysema, unspecified ([facility]) Procedures Stress echocardiogram (TTE) exercise with contrast, bubble, strain, and 3D PRN [place] ECHO TTHRC R-T 2D W/WO M-MODE COMPLETE REST&ST [place] ECHO TTHRC R-T 2D W/WO M-MODE REST&STRS CONT ECG [place] DOPPLER ECHOCARD PULSE WAVE W/SPECTRAL DISPLAY [place] DOP ECHOCARD COLOR FLOW VELOCITY MAPPING [place] CV STRS TST XERS&/OR RX CONT ECG W/O I&R [place] CV STRS TST XERS&/OR RX CONT ECG TRCG ONLY [place] CV STRS TST XERS&/OR RX CONT ECG I&R ONLY Vasquez Martínez MD [address] [place] [phone] Referral ID Status Reason Start Date Expiration Date V isits Requested Visits Authorized [id number] Authorized 06/29/2023 06/28/2024 1 1 Additional Source Comments Reason for Visit (unrecogniz ed section and content) Reason Comments Head Injury Fall Reason Comments Fall Head Injury Reason Comments Wrist Injury Reason Comments Shoulder Injury Reason Comments New Patient Right Specialty Diagnoses / Procedures Referred By Arianna t Referred To Contact Sports Medicine Diagnoses Pain in right knee Procedures [place] OFFICE/OUTPATIENT NEW HIGH MDM 60-74 MINUTES Vasquez Martínez MD [address] [place] [phone] Mana Johnson MD [address] [place], [place] [id number] Referral ID Status Reason Start Date Expiration Date V isits Requested Visits Authorized [id number] Closed Specialty Services Required 11/24/2022 11/24/2023 1 1 Reason Comments Elevated lipase Lost 40 lbs in the l ast couple months. Having some stomach pains and bloating along with diarrhea. Labs scanned in yesterday. Reason Comments Polysomnogram Reason Onset Date Comments Scheduling 06/29/2023 Specialty Diagnoses / Procedures Referred By Contac t Referred To Contact Cardiology Diagnoses Emphysema, unspecified ([facility]) Procedures Stress echocardiogram (TTE) exercise with contrast, bubble, strain, and 3D PRN [place] ECHO TTHRC R-T 2D W/WO M-MODE COMPLETE REST&ST [place] ECHO TTHRC R-T 2D W/WO M-MODE REST&STRS CONT ECG [place] DOPPLER ECHOCARD PULSE WAVE W/SPECTRAL DISPLAY [place] DOP ECHOCARD COLOR FLOW VELOCITY MAPPING [place] CV STRS TST XERS&/OR RX CONT ECG W/O I&R [place] CV STRS TST XERS&/OR RX CONT ECG TRCG ONLY [place] CV STRS TST XERS&/OR RX CONT ECG I&R ONLY Vasquez Martínez MD [address] [facility] [address] [place] [phone] Referral ID Status Reason Start Date Expiration Date V isits Requested Visits Authorized [id number] Authorized 06/29/2023 06/28/2024 1 1 Reason Comments Refill Request Reason Onset Date Comments Appointment Request 09/11/2023 INFORMATION SOURCE (unrecogn ized section and content) DATE CREATED AUTHOR AUTHOR'S ORGANIZ ATION 06/16/2022 [employer] [facility] DATE CREATED AUTHOR AUTHOR'S ORGANIZ ATION 05/12/2023 [facility] DATE CREATED AUTHOR AUTHOR'S ORGANIZ ATION 07/03/2023 [facility] DATE CREATED AUTHOR AUTHOR'S ORGANIZ ATION 09/13/2023 [facility] Ordered Prescriptions (unrec ognized section and content) Scheduled Active and Recently Administ ered Medications (unrecognized section and content) Care Teams (unrecognized sec tion and content) 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 Relationship Specialty Start Date End Date Vasquez Martínez MD [address] [place] [address] PCP - General 02/25/17 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 Relationship Specialty Start Date End Date Vasquez Martínez MD [address] [place] [id number] PCP - General 02/25/17 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 Relationship Specialty Start Date End Date Vasquez Martínez MD [address] [place] [id number] PCP - General 02/25/17 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 Relationship Specialty Start Date End Date Vasquez Martínez MD [address] [place] [id number] PCP - General 02/25/17 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 Relationship Specialty Start Date End Date Vasquez Martínez MD [address] [place] [id number] PCP - General 02/25/17 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 Relationship Specialty Start Date End Date Vasquez Martínez MD [facility] [address] [address] PCP - General Family Medicine 11/17/22 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 Relationship Specialty Start Date End Date Vasquez Martínez MD [facility] [address] [phone] PCP - General Family Medicine 11/17/22 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 Relationship Specialty Start Date End Date Vasquez Martínez MD [facility] [address] [address] PCP - General Family Medicine 11/17/22 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 Relationship Specialty Start Date End Date Vasquez Martínez MD [address] [place] [address] PCP - General 02/25/17 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 Relationship Specialty Start Date End Date Vasquez Martínez MD [address] [place] [address] PCP - General 02/25/17 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 Relationship Specialty Start Date End Date Vasquez Martínez MD [address] [place] [address] PCP - General 02/25/17 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 Relationship Specialty Start Date End Date Vasquez Martínez MD [facility] [address] [place] [address] PCP - General Family Medicine 11/17/22 Source Comments (unrecognize d section and content) In the event this informatio n is protected by the Federal Confidentiality of Alcohol and Drug Abuse Patient Records regulations: The Federal rules restrict any use of the information to criminally investigate or prosecute any alcohol or drug abuse patient.[facility] the event this information is protected by the Federal Confidentiality of Alcohol and Drug Abuse Patient Records regulations: The Federal rules restrict any use of the information to criminally investigate or prosecute any alcohol or drug abuse patient.[facility] the event this information is protected by the Federal Confidentiality of Alcohol and Drug Abuse Patient Records regulations: The Federal rules restrict any use of the information to criminally investigate or prosecute any alcohol or drug abuse patient.[facility] the event this information is protected by the Federal Confidentiality of Alcohol and Drug Abuse Patient Records regulations: The Federal rules restrict any use of the information to criminally investigate or prosecute any alcohol or drug abuse patient.[facility] the event this information is protected by the Federal Confidentiality of Alcohol and Drug Abuse Patient Records regulations: The Federal rules restrict any use of the information to criminally investigate or prosecute any alcohol or drug abuse patient.[facility] the event this information is protected by the Federal Confidentiality of Alcohol and Drug Abuse Patient Records regulations: The Federal rules restrict any use of the information to criminally investigate or prosecute any alcohol or drug abuse patient.[facility] FOR RECORDS PERTAINING TO PATIENTS WHO ARE OR HAVE BEEN ENROLLED IN A CHEMICAL DEPENDENCY/SUBSTANCEABUSE PROGRAM, SOME INFORMATION MAY BE OMITTED. This clinical summary was aggregated from multiple sources. Caution should be exercised in using it in the provision of clinical care. This summary normalizes information from multiple sources, and as a consequence, information in this document may materially change the coding, format and clinical context of patient data. In addition, data may be omitted in some cases. CLINICAL DECISIONS SHOULD BE BASED ON THE PRIMARY CLINICAL RECORDS. [facility]. provides no warranty or guarantee of the accuracy or completeness of information in this document.
== END | disposition home or self-care (01) ==
LOC: LAB 16:34
PROVIDERS: PCP Family Medicine; Referring Provider Otolaryngology; Visit Provider Otolaryngology
DX: J32.9 Chronic sinusitis, unspecified (principal)
CPT/HCPCS: 87070; 87077; 87186; 87205

== ENCOUNTER → 2023-11-20 | Outpatient (CLI) | payer MEDICARE, MEDICAID, SELFPAY ==
--- NOTE | 2023-11-20 14:28 | CT_ITS ---
STUDY: LOW DOSE CT LUNG CANCER SCREENING REASON FOR EXAM: Female, 68 years old. One pack per day smoker x50 years RADIATION DOSAGE (If Supplied By Facility): CTDIvol = ( 3.02 ) mGy, DLP = ( 118.52 ) mGycm TECHNIQUE: No contrast was administered. Low dose technique was utilized (average mAS-38 and kVp 120). 1.25 mm axial source images with a slice interval of 1.25-mm were reconstructed in lung windows. 2.5 mm axial source images with a slice interval of 2.5-mm were reconstructed in lung windows. 5.0 mm axial source images with a slice interval of 5.0-mm were reconstructed in soft tissue windows. COMPARISON: 10/28/2022 FINDINGS: Lung windows show underlying emphysema with stable fibrotic scarring and pleural thickening in the apices. There are stable emphysematous bulla throughout both lung valero with stable calcific scarring in the medial aspect of the right upper lobe. There is however a new noncalcified nodular density in the left upper lobe on axial image 55 measuring 0.8 x 0.5 cm it was not present on the previous study. This needs further evaluation with contrasted CT and/or PET/CT scan. No organized infiltrate, effusion, or other noncalcified mass or nodule. Dependent atelectasis noted in the lung bases. Limited soft tissue windows show normal-appearing thyroid gland. No suspicious adenopathy. The thoracic aorta tapers normally. Calcified coronary vessels are noted. Limited cuts through the upper abdomen do not show suspicious abnormality, bony structures show degenerative change. CT/Low Dose CT Lung Screening IMPRESSION: Lung-RADS category 4B - Chest CT with or without contrast, PET/CT and/or tissue sampling can be obtained depending on the probability of malignancy and comorbidities. IMPORTANT NOTES FOR USE: ACR Lung-RADS Version 1.1 Assessment Categories Release Date: 2018 Category: Coded 0-4 bases on nodule(s) with highest degree of suspicion. Negative screen is defined as categories 1 and 2; a positive screen is defined as categories 3 and 4. Category 3 and 4A nodules that are unchanged on interval CT should be coded as category 2, and individuals returned to screening in 12 months. Category 4X: Category 3 or 4 nodules with additional imaging findings that increase the suspicion of lung cancer, such as spiculation, GGN that doubles in size in 1 year, enlarged lymph notes, etc. Category Modifiers: S (significant finding unrelated to lung cancer) Electronically Signed: Chavo Toledo MD at 15:20 EDT ,
== END | disposition home or self-care (01) ==
LOC: CT 14:26
PROVIDERS: PCP Family Medicine; Referring Provider Internal Medicine Critical Care Medicine; Visit Provider Internal Medicine Critical Care Medicine
DX: Z12.2 Encounter for screening for malignant neoplasm of respiratory organs (principal); F17.210 Nicotine dependence, cigarettes, uncomplicated
CPT/HCPCS: 71271

== ENCOUNTER → 2023-12-22 | Outpatient (CLI) | payer MEDICARE, MEDICAID, SELFPAY ==
--- NOTE | 2023-12-22 08:00 | PET_ITS ---
EXAMINATION: FDG PET/CT ? INDICATIONS: 68-year-old female with a history of pulmonary nodularity. ? COMPARISON EXAMINATION: CT of the chest report dated 11/20/2023. ? INDEX LESION SIZE SUV INTERPRETATION Right temporal lobe ? 2.3:1, lesion to white matter ratio Warrants further investigation with Magnetic Resonance Imaging ? NON-INDEX LESION ? ? ? Right thoracic perihilum ? 2.0 max Quantitative criteria for viable neoplasm are not fulfilled ? TECHNIQUE: Following the intravenous administration of 13.37 mCi of F-18 deoxyglucose via the left antecubital fossa, multiplanar image acquisitions of the head, neck, chest, abdomen and pelvis to the level of the midthigh, obtained at one-hour post radiopharmaceutical administration contemporaneously interpreted with the current CT of the chest, abdomen and pelvis dated 12/22/[address] of the chest report dated 11/20/2023 via coregistration reveal: ? SERUM GLUCOSE LEVEL:? 98 mg/dL? HEIGHT:?? 66 inches WEIGHT:?? 120 pounds ? FINDINGS: ? HEAD/NECK:? There is no evidence of abnormal increased glucose metabolism in the pharyngeal mucosal space, parapharyngeal space, oropharynx, bilateral-lateral and anterior neck, hypopharynx and distribution of the larynx. Facilitated uptake is noted in the oral cavity in proximity to metallic dental hardware placement most consistent with a component of metallic reconstruction artifact. ? Asymmetric increased tracer uptake is noted in the right temporal lobe with a lesion:white matter ratio of 2.3:1 (normal <1.5:1). Correlation with Magnetic Resonance Imaging is recommended. The remainder of the visualized cerebral cortical and subcortical structures are scintigraphically unremarkable. ? CHEST:? Facilitated glucose metabolism is identified in the right thoracic perihilum generating a calculated standard uptake value of 2.0. ? CT of the chest demonstrates the following anatomic characteristics: Emphysematous changes are defined in the bilateral upper-mid lung zones, without evidence of increased FDG concentration. Atherosclerotic calcification is defined in the thoracic aorta without evidence of dilatation, aneurysm formation. Coronary artery calcification is observed. ? ABDOMEN/PELVIS:? Normal physiologic distribution of the radiopharmaceutical is identified in the hepatic (2.5) and splenic parenchyma, both renal units, urinary bladder, and visualized intestinal tract. ? CT of the abdomen and pelvis is remarkable for the following: Atherosclerotic calcification is defined in the abdominal aorta without evidence of dilatation, aneurysm formation. Abdominal and pelvic arterial calcification is observed. Calcified phlebolith formation is noted in the bilateral lower hemipelvis. Cyst formation defined in the left posterior pelvis reveals no evidence of increased tracer uptake. ? SKELETAL:? A compression deformity is defined in the level of the second lumbar vertebra. Degenerative changes defined in the thoracic and lumbar spine demonstrate no evidence of increased glucose metabolism. ? PET/PET/CT Tumor Base -Thigh Init IMPRESSION: 1. The enhanced glucose concentration observed in the right temporal lobe should be further investigated with Magnetic Resonance Imaging secondary to the quantitative degree of uptake. 2. Facilitated FDG concentration noted in the right thoracic perihilum does not fulfill quantitative criteria for malignant transformation. 3. Anatomic, metabolic stability may be ensured in the bilateral hemithorax pulmonary parenchyma with repeat FDG-PET imaging and/or CT of the chest in 3-6 months, if clinically indicated.? Electronic Signature Vasquez Esteban D.O. Accurate Quantification of SUVs for this report are calculated using the exclusive [employer]. ([place].S. Patent No. [phone] [phone] [place] patent [phone]). Standardization and correction of the FDG SUV metric via [employer] technology allow for vendor non-specific objective quantitative examination comparison and optimization of the sensitivity and specificity of the FDG PET-CT examination. . [email or web address] Electronically Signed: Vasquez Esteban DO at 8:27 EDT ,
== END | disposition home or self-care (01) ==
LOC: ONC 07:46
PROVIDERS: PCP Family Medicine; Referring Provider Nurse Practitioner Acute Care; Visit Provider Nurse Practitioner Acute Care
DX: R91.8 Other nonspecific abnormal finding of lung field (principal)
CPT/HCPCS: 78815; A9552

== ENCOUNTER → 2024-03-07 | Outpatient (CLI) | payer MEDICARE, MEDICAID, SELFPAY ==
--- NOTE | 2024-03-07 08:19 | CT_ITS ---
INDICATION: LUNG MASS EXAMINATION: CT CHEST WITHOUT CONTRAST - CT Chest W/O Contrast Injection TECHNIQUE: Helically acquired images were obtained of the chest. The protocol utilizes one or more of the following dose reduction techniques: automated exposure control, adjustment of mA and/or kV according to patient size,and/or use of iterative reconstruction technique. IV Contrast dosage and agent: None. RADIATION DOSAGE (If Supplied By Facility): CTDIvol = ( 6.70 ) mGy, DLP = ( 247.84 ) mGycm COMPARISON: Prior study dated: 11/20/2023 FINDINGS: LUNGS, PLEURA AND LARGE AIRWAYS: Previously noted 8 x 5 mm irregular left severe emphysematous changes are again seen. Fibrotic changes and calcified granulomas are again seen in the right upper lobe. Upper lobe density has markedly decreased and almost resolved. No pleural effusion or thickening. No pneumothorax. THYROID: No thyroid lesions. HEART AND PERICARDIUM: Heart size is normal. No pericardial effusion. CORONARY ARTERIES: Coronary artery calcification is seen. VESSELS: Thoracic aorta is not dilated. MEDIASTINUM AND NATE: No mediastinal or hilar adenopathy. Esophagus is unremarkable. No hiatal hernia. UPPER ABDOMEN: No acute pathology. BONES: Unchanged osseous structures. CT/Chest without Contrast IMPRESSION: 1. Left upper lobe lesion almost resolved likely inflammatory. 2. Otherwise, no significant change is previous exam. 3. Severe emphysematous changes. 4. Chronic changes in the right upper lobe. Electronically Signed: Arthur Alvarez MD at 12:00 EDT ,
== END | disposition home or self-care (01) ==
LOC: CT 08:16
PROVIDERS: PCP Family Medicine; Referring Provider Nurse Practitioner Acute Care; Visit Provider Nurse Practitioner Acute Care
DX: R91.8 Other nonspecific abnormal finding of lung field (principal)
CPT/HCPCS: 71250

== ENCOUNTER → 2024-06-07 | Outpatient (CLI) | payer MEDICARE, MEDICAID, SELFPAY ==
--- NOTE | 2024-06-07 07:58 | CT_ITS ---
EXAM: CT CHEST WITHOUT INTRAVENOUS CONTRAST CLINICAL INDICATION: LUNG NODULE TECHNIQUE: Helically acquired images were obtained of the chest without intravenous contrast. This CT exam was performed using one or more of the following dose reduction techniques: automated exposure control, adjustment of the mA and/or kV according to patient size, and/or use of iterative reconstruction technique. COMPARISON: PET/CT scan 12/22/2023, CT Chest dated 11/20/2023 and 03/07/2024 FINDINGS: LUNGS AND PLEURAL SPACES: A new 18 mm pleural-based nodular density noted within the left lung apex likely representing inflammatory lesion. The fibronodular densities within the right upper lobe are stable. Stable extensive centrilobular pulmonary emphysema. No pneumothorax. HEART: Normal heart size. Prominent coronary artery calcification. MEDIASTINUM: Small sliding hiatal hernia. No mediastinal or hilar adenopathy. Esophagus is unremarkable. BONES/JOINTS: Healing right seventh rib fracture again noted. Stable chronic fracture deformity of the L2 vertebral body. VASCULATURE: No aortic aneurysm. CT/Chest without Contrast IMPRESSION: 1. New pleural-based 18 mm left apical nodular density likely inflammatory in nature. Short-term follow-up recommended. 2. Otherwise stable CT chest Electronically Signed: Demetrio Telles MD at 18:01 EDT ,
== END | disposition home or self-care (01) ==
LOC: CT 07:55
PROVIDERS: PCP Family Medicine; Referring Provider Nurse Practitioner Acute Care; Visit Provider Nurse Practitioner Acute Care
DX: R91.8 Other nonspecific abnormal finding of lung field (principal)
CPT/HCPCS: 71250

== ENCOUNTER → 2024-07-04 | Outpatient (CLI) | payer MEDICARE, MEDICAID, SELFPAY ==
[2024-07-04 12:30] VITALS: PULSE 111; PULSE 115; PULSE 117; PULSE 81; PULSE 88; PULSE 90; PULSE 92; O2SAT 90; O2SAT 91; O2SAT 94
--- NOTE | 2024-07-06 17:16 | PCM.PSN.6M ---
PSN 6 Minute Walk Test 6 Minute Walk Test 6 Minute Walk Test: 6 Minute Walk Test PSN:6-Minute Walk Test Start: 07/04/24 12:39 Freq: Status: Active Protocol: [id number].[id number] Document 07/04/24 12:30 AEH (Rec: 07/04/24 12:43 AEH [id number]) 6 Minute Walk Test Date Performed 07/04/24 Time Performed 12:30 Height 5 ft 6 in Weight: 53.524 kg Weight in Pounds 118.[address]: Olivia Assistive device used: None Pre-test Oxygen Delivery Method Room Air Pulse Ox (%) 94 Pulse Rate (60-100 beats/min) 81 Dyspnea Emily Scale (0-10) 0 Exertion Emily Scale (6-20) 6 1st minute Oxygen Delivery Method Room Air Pulse Rate (60-100 beats/min) 92 Dyspnea Emily Scale (0-10) 114 2nd minute Oxygen Delivery Method Room Air Pulse Ox (%) 90 Pulse Rate (60-100 beats/min) 117 H 3rd minute Oxygen Delivery Method Room Air Pulse Ox (%) 90 Pulse Rate (60-100 beats/min) 111 H 4th minute Oxygen Delivery Method Room Air Pulse Ox (%) 91 Pulse Rate (60-100 beats/min) 115 H 5th minute Oxygen Delivery Method Room Air Pulse Rate (60-100 beats/min) 90 Dyspnea Emily Scale (0-10) 115 6th minute Oxygen Delivery Method Room Air Pulse Ox (%) 90 Pulse Rate (60-100 beats/min) 115 H Dyspnea Emily Scale (0-10) 1 Exertion Emily Scale (6-20) 13 Post-test Oxygen Delivery Method Room Air Pulse Ox (%) 94 Pulse Rate (60-100 beats/min) 88 Full Laps Walked 11 Partial Lap, Number of Tiles Walked 0 Total Distance Walked (ft) 649 Interpretation Interpretation: The patient was able to ambulate 649 feet over the course of 6 minutes on room air with no assistive devices or breaks. The patient did have a significant desaturation from a baseline of 94% to as low as 90% with a concomitant increase in heart rate to 115 bpm. These findings are consistent with a respiratory limitation exercise tolerance. Recommendations Recommendations: No supplemental oxygen is indicated at this time. However, patient will need to be followed closely given level of desaturation.
== END | disposition home or self-care (01) ==
LOC: PSN 12:16
PROVIDERS: PCP Family Medicine; Referring Provider Nurse Practitioner Acute Care; Visit Provider Nurse Practitioner Acute Care
DX: J44.9 Chronic obstructive pulmonary disease, unspecified (principal)
CPT/HCPCS: 94618

== ENCOUNTER → 2024-09-23 | Outpatient (CLI) | payer MEDICARE, MEDICAID, SELFPAY ==
--- NOTE | 2024-09-23 07:29 | CT_ITS ---
STUDY: CT CHEST WITHOUT CONTRAST REASON FOR EXAM: Female, 69 years old. New lung nodule 18 mm RADIATION DOSAGE (If Supplied By Facility): CTDIvol = ( 6.42 ) mGy, DLP = ( 240.62 ) mGycm TECHNIQUE: Transaxial imaging was performed without the administration of intravenous contrast material. Individualized dose optimization techniques were used for this CT. COMPARISON: Comparison is made with prior study dated June 07, 2024. FINDINGS: CHEST Hyperinflation and emphysematous changes worse in the upper lobes. The previously seen nodule in the posterior aspect of the left upper lobe has increased in size presently measuring 8.6 mm. Stable appearance of the nodular densities in the right upper lobe. There is no demonstrated pleural abnormality. There are calcifications of the coronary arteries. Normal mediastinum. Normal hilar regions. Normal unenhanced pulmonary arteries. There is atherosclerotic calcification of the aortic arch. Stable deformity of the L2 vertebra. Small sliding hiatal hernia. CT/Chest without Contrast IMPRESSION: Increased size of the previously seen nodule in the posterior aspect of the left upper lobe. Correlation with the PET scan recommended for further evaluation. Electronically Signed: Gavin Srinivasan MD at 12:51 EST ,
--- NOTE | 2024-09-23 07:29 | ECHOD_ITS ---
Reason For Study: SHORTNESS OF BREATH Procedure This was a 2D Doppler, Color Flow transthoracic echocardiogram. Exam performed in department. Left Ventricle Normal left ventricular thickness. The left ventricular ejection fraction is 60 %. Septal motion consistent with bundle branch block. Normal diastology for age. Right Ventricle Normal right ventricle. Atria The left and right atria are normal. Mitral Valve Trivial mitral valve insufficiency. Tricuspid Valve Trivial tricuspid valve insufficiency. Unable to estimate RV systolic pressure due to insufficient tricuspid regurgitant envelope. Aortic Valve There is no aortic stenosis. No aortic valve insufficiency. Pulmonic Valve The pulmonic valve is not well visualized. Great Vessels Normal sized aortic root. Pericardium/Pleural No pericardial effusion. MMode/2D Measurements & Calculations LVIDd: 4.2 cm IVSd: 1.0 cm LVOT diam: 1.9 cm LVIDs: 2.9 cm LVPWd: 0.98 cm LVOT area: 2.8 cm2 RVDd: 3.3 cm FS: 31.0 % asc Aorta Diam: 3.0 cm LAV(MOD-bp): 14.9 ml LVAd ap4: 19.8 cm2 LAV(MOD-bp) Indexed: 9.3 ml/m2 LVLd ap4: 7.0 cm LAV(MOD-sp2): 15.1 ml EDV(MOD-sp4): 45.2 ml LAV(MOD-sp4): 15.4 ml EDV(sp4-el): 47.6 ml LVAs ap4: 10.9 cm2 LVLs ap4: 5.4 cm ESV(MOD-sp4): 17.7 ml ESV(sp4-el): 18.6 ml EF(MOD-sp4): 60.8 % EF(sp4-el): 60.9 % LVAd ap2: 14.8 cm2 SV(MOD-sp4): 27.5 ml SV(MOD-sp2): 16.8 ml LVLd ap2: 6.9 cm SI(MOD-sp4): 17.2 ml/m2 SI(MOD-sp2): 10.6 ml/m2 EDV(MOD-sp2): 26.9 ml EDV(sp2-el): 27.0 ml LVAs ap2: 8.2 cm2 LVLs ap2: 5.5 cm ESV(MOD-sp2): 10.1 ml ESV(sp2-el): 10.5 ml EF(MOD-sp2): 62.4 % SV(sp4-el): 29.0 ml Ao sinus diam: 3.[address] Junction: 2.8 cm LA dimension(2D): 2.8 cm LA A4 area: 8.3 cm2 RA A4 area: 10.4 cm2 TAPSE: 1.6 cm Time Measurements MV dec time: 0.32 sec Doppler Measurements & Calculations MV E max shaquille: 59.1 cm/sec Lat Peak E' Shaquille: 10.7 cm/sec Med Peak E' Shaquille: 8.7 cm/sec MV A max shaquille: 74.8 cm/sec E/E' lat: 5.5 E/E' med: 6.8 MV E/A: 0.79 MV dec slope: 182.7 cm/sec2 Ao V2 max: 136.3 cm/sec LV V1 max: 117.6 cm/sec Ao max P.4 mmHg LV V1 max P.5 mmHg Ao V2 mean: 100.8 cm/sec LV V1 mean P.8 mmHg Ao mean P.4 mmHg LV V1 mean: 94.8 cm/sec Ao V2 VTI: 25.6 cm LV V1 VTI: 23.3 cm AV (velocity ratio): 0.91 ALEX(I,D): 2.5 cm2 ALEX(V,D): 2.4 cm2 SV(LVOT): 65.0 ml PA V2 max: 78.9 cm/sec ECHO/Echo Complete Interpretation Summary The left ventricular ejection fraction is 60 %. Ordering Physician: Ana Gilman Referring Physician: Ana Gilman Performed By: Rica Oropeza RDCS
== END | disposition home or self-care (01) ==
PROVIDERS: PCP Family Medicine; Referring Provider Nurse Practitioner Acute Care; Visit Provider Nurse Practitioner Acute Care
DX: R06.02 Shortness of breath (principal)
CPT/HCPCS: 71250; 93306

== ENCOUNTER → 2024-10-18 | Outpatient (CLI) | payer MEDICARE, MEDICAID, SELFPAY ==
--- NOTE | 2024-10-18 08:30 | PET_ITS ---
EXAM: PET-CT. CLINICAL HISTORY: 69-year-old female with a history of lung nodules for restaging. COMPARISON: PET-CT dated 12/22/2023. TECHNIQUE: Following a fast, 14.74 F-18 FDG was administered intravenously. PET images were obtained from the skull base through the mid thighs. Through this same anatomic region, CT images were obtained for attenuation correction purposes and anatomic localization. Blood glucose level at the time of FDG administration was 111 mg/dL. Dose reduction techniques include automated exposure control and/or adjustment of mA and/or kv according to patient size and or use of iterative reconstructive technique. FINDINGS: Neck: No suspicious FDG activity in the neck. Mildly increased uptake is associated with a facet joint in the lower right cervical spine, compatible with degenerative changes. There is spray artifact from dental amalgam. Debris is noted in the right maxillary sinus. The airway is patent. Lymph nodes are normal in size. The right thyroid gland is enlarged and heterogeneous, with a lobular portion extending into the mediastinum and posterior to the esophagus. Chest: There is no abnormal FDG activity associated with the calcified nodules in the right lung. The previously seen activity in the right upper lobe, up to max SUV of 0.8, is now 0.4 in remains below threshold for malignancy. A nodule in the posterior left lung apex measures 1 x 1.1 cm, also FDG non avid with a max SUV of 0.8. A nodular area of probable scarring at the right lung apex measures 1.2 x 0.8 cm and has no associated FDG activity. The background lungs are moderately emphysematous. Multiple calcified probable granulomata are seen in the right lung. New bilateral rib fractures are noted, with FDG activity associated with the right anterior 4th rib (max SUV 3.6 and the left anterior 7th rib (max SUV 3.3). There is a trace right pneumothorax. A small amount of gas is also seen in the intercostal region adjacent to the right 4th rib and in the PET minor muscle in the right side. No pleural effusion is seen. Abdomen and pelvis: No suspicious FDG activity in the abdomen or pelvis. Mild increase in activity over the greater trochanter of the left hip suggesting trochanteric bursitis. Liver, spleen, pancreas, gallbladder are normal. Aortoiliac atherosclerosis is seen. Bowel is normal in caliber. Moderate amount of stool in the colon. Kidneys, ureters, urinary bladder are normal. PET/PET/CT Tumor Base -Thigh Init IMPRESSION: NO ABNORMAL FDG ACTIVITY ASSOCIATED WITH THE 1 X 1.1 CM NODULE IN THE POSTERIOR ASPECT OF THE LEFT LUNG APEX. SHORT-TERM FOLLOW-UP CT IN 3-6 MONTHS IS SUGGESTED. BILATERAL SUBACUTE RIB FRACTURES ARE FDG AVID AND ASSOCIATED WITH A TRACE RIGHT APICAL PNEUMOTHORAX. Reading Location: [id number]
== END | disposition home or self-care (01) ==
PROVIDERS: PCP Family Medicine; Referring Provider Nurse Practitioner Acute Care; Visit Provider Nurse Practitioner Acute Care
DX: R91.8 Other nonspecific abnormal finding of lung field (principal)
CPT/HCPCS: 78815; A9552

== ENCOUNTER → 2024-12-19 | Outpatient (CLI) | payer MEDICARE, MEDICAID, SELFPAY ==
--- NOTE | 2024-12-19 08:08 | RAD_ITS ---
PROCEDURE: CHEST PA AND LATERAL 12/19/2024 REASON FOR EXAM: EVAL FOR RESOLUTION OF PNEUMOTHORAX TECHNIQUE: Frontal and lateral views of the chest. COMPARISON: PET-CT exam dated 10/18/2024 FINDINGS: There is no pneumothorax identified. The right lung appears to be expanded. There are multiple nodules in the right lung, some of which are calcified. These nodules are most compatible with granulomas. Lungs are hyperinflated with flattening of the hemidiaphragms. Bulla formation is identified in the upper lung valero. These findings are most compatible with COPD. There is no atelectasis, consolidation, effusion or pneumonic infiltrate. Diffuse osteopenia bony thorax is seen. There is a subtle dextroscoliosis of the thoracic spine. There is an increased kyphotic curvature of the thoracic spine. Mild degenerative changes of the thoracic are noted. There is a slight decrease in height of a couple of the lower thoracic vertebral bodies which may be related to osteoporotic compression fractures. The age of which is indeterminate. RAD/Chest PA and Lateral IMPRESSION: No pneumothorax is identified. Calcified granulomas in the right lung. COPD Diffuse osteopenia bony thorax. Increased kyphotic curvature and degenerative changes of the thoracic spine. Slight decrease in height 2 of the lower thoracic vertebral bodies by approxima tely 3-5%. This may be related to osteoporotic compression fractures. Subacute right rib fractures. Reading Location: [id number]
== END | disposition home or self-care (01) ==
LOC: RAD 08:07
PROVIDERS: PCP Family Medicine; Referring Provider Nurse Practitioner Acute Care; Visit Provider Nurse Practitioner Acute Care
DX: J93.83 Other pneumothorax (principal)
CPT/HCPCS: 71046

== ENCOUNTER → 2025-02-10 | Outpatient (CLI) | payer MEDICARE, MEDICAID, SELFPAY ==
--- OUTSIDE RECORDS SUMMARY | 2025-02-10 07:27 | XMS RPT_ITS | CCD ---
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 Name Role Phone Jeremiah Martínez Primary Care Provider Unavailable Primary Care Provider Unavailabl e PROVIDER, UNKNOWN Referring Unavailable Gunning, Jeremiah Primary Care Unavailable Gunning, Jeremiah Attending Unavailable PROVIDER, UNKNOWN Referring Unavailable Gunning, Jeremiah Primary Care Unavailable Gunning, Jeremiah Attending Unavailable Gunning, Jeremiah Attending Unavailable PROVIDER, UNKNOWN Referring Unavailable Gunning, Jeremiah Primary Care Unavailable Gunning, Jeremiah Primary Care Unavailable PROVIDER, UNKNOWN Referring Unavailable Gunning, Jeremiah Attending Unavailable Gunning, Jeremiah Primary Care Unavailable PROVIDER, UNKNOWN Referring Unavailable Anna Ibarra Attending Unavailable Gunning Jeremiah FERNANDEZ Primary Care Provider Jeremiah Martínez MD Primary Care Provider Jeremiah Martínez MD Primary Care Provider Jeremiah Martínez MD Primary Care Provider Cristopher, Dr. Ovalle Primary Care Provider Cristopher, Dr. Ovalle Referring Provider Kalina PEREZ, ANA-Dawson Perez Attending Provider Jeremiah Martínez MD Primary Care Provider JEREMIAH MARTÍNEZ Attending Unavailable GUNNING, JEREMIAH Referring Unavailable GUNNING, JEREMIAH Primary Care Unavailable GUNNING, JEREMIAH Attending Unavailable GUNNING, JEREMIAH Referring Unavailable GUNNING, JEREMIAH Primary Care Unavailable GUNNING, JEREMIAH Attending Unavailable GUNNING, JEREMIAH Referring Unavailable GUNNING, JEREMIAH Primary Care Unavailable KATELIN RUIZ Attending Unavailable GUNNING, JEREMIAH Referring Unavailable GUNNING, JEREMIAH Primary Care Unavailable SERGIO MENESES Attending Unavailable SERGIO MENESES Referring Unavailable GUNNING, JEREMIAH Primary Care Unavailable SERGIO MENESES Attending Unavailable SERGIO MENESES Referring Unavailable GUNNING, JEREMIAH Primary Care Unavailable GUNNING, JEREMIAH Primary Care Unavailable HARPAL CUEVAS Attending Unavailable Gunning , Dr. Ovalle Primary Care Provider Un available Gunning , Dr. Ovalle Referring Provider Unava ilable Gilman PAINT SPECIALIST-C, Ana Attending Provider Gilman PAINT SPECIALIST-C, Ana Referring Provider Dr. Vanessa Chowdhury MD Attending Provider [phone] GUNNING, JEREMIAH H Primary Care Unavailable GOPI BESS Attending UnavailSERGIO Simms Referring Unavailable GUNNING, JEREMIAH H Primary Care Unavailable SONIA FERREIRA Attending Unavailable Gilman PAINT SPECIALIST, Ana Attending Unavailable Gilman PAINT SPECIALIST, Ana Referring Unavailable Gunning, Jeremiah Primary Care Unavailable Gilman PAINT SPECIALIST, Ana Attending Unavailable Gilman PAINT SPECIALIST, Ana Referring Unavailable Gunning, Jeremiah Primary Care Unavailable Gilman PAINT SPECIALIST, Ana Consulting Unavailable Gilman PAINT SPECIALIST, Ana Referring Unavailable Gunning, Jeremiah Primary Care Unavailable Dereck Abreu Attending Unavailable Gilman PAINT SPECIALIST, Ana Attending Unavailable Gunning, Jeremiah Primary Care Unavailable Gunning, Jeremiah Referring Unavailable Gunning, Jeremiah Referring Unavailable Gilman PAINT SPECIALIST, Ana Attending Unavailable Gunning, Jeremiah Primary Care Unavailable Gilman PAINT SPECIALIST, Ana Attending Unavailable Gunning, Jeremiah Primary Care Unavailable Gunning, Jeremiah Referring Unavailable Gilman PAINT SPECIALIST, Ana Attending Unavailable Gunning, Jeremiah Referring Unavailable Gunning, Jeremiah Primary Care Unavailable Vanessa Chowdhury Attending Unavailable Gunning, Jeremiah Primary Care Unavailable Gunning, Jeremiah Referring Unavailable Gilman PAINT SPECIALIST, Ana Attending Unavailable Gunning, Jeremiah Primary Care Unavailable Gilman PAINT SPECIALIST, Ana Attending Unavailable Gunning, Jeremiah Primary Care Unavailable Gilman PAINT SPECIALIST, Ana Referring Unavailable Gilman PAINT SPECIALIST, Ana Referring Unavailable Gilman PAINT SPECIALIST, Ana Attending Unavailable Gunning, Jeremiah Primary Care Unavailable Gilman PAINT SPECIALIST, Ana Attending Unavailable Gilman PAINT SPECIALIST, Ana Referring Unavailable Gunning, Jeremiah Primary Care Unavailable Gunning, Jeremiah Primary Care Unavailable Gilman PAINT SPECIALIST, Ana Referring Unavailable Gilman PAINT SPECIALIST, Ana Attending Unavailable Gilman PAINT SPECIALIST, Ana Attending Unavailable Gunning, Jeremiah Primary Care Unavailable Gilman PAINT SPECIALIST, Ana Referring Unavailable Gunning, Jeremiah Primary Care Unavailable Gilman PAINT SPECIALIST, Ana Attending Unavailable Gilman PAINT SPECIALIST, Ana Referring Unavailable Gilman PAINT SPECIALIST, Ana Attending Unavailable Gilman PAINT SPECIALIST, Ana Referring Unavailable Gunning, Jeremiah Primary Care Unavailable Gilman PAINT SPECIALIST, Ana Attending Unavailable Gilman PAINT SPECIALIST, Ana Referring Unavailable Gunning, Jeremiah Primary Care Unavailable Gilman PAINT SPECIALIST, Ana Attending Unavailable Gilman PAINT SPECIALIST, Ana Referring Unavailable Gunning, Jeremiah Primary Care Unavailable Allergies Allergy Classification Reported Allergen(s) Allergy Type Date of Onset Reaction(s) Facility Dihydrofolate Reductase Inhibitors (antibiotic) (1 source) Trimethoprim Drug Allergy 11-04-19 22 [facility] Doxycycline (1 source) Doxycycline Drug Allergy 01-21-20 24 Nausea And Vomiting [facility] Opioid Agonists (2 sources) Codeine Drug Allergy 04-15-20 06 [facility] ([facility] (2 sources) Penicillins Drug Allergy 04-15-20 06 Rash, Hives [facility] Quinolones (antibiotic) (3 sources) levoFLOXacin Drug Allergy 12-18-19 17 [facility], [facility] Serotonin Reuptake Inhibitors (SSRIs) (1 source) Escitalopram Drug Allergy 12-17-19 23 Anaphylaxis [facility] Sulfonamides (antibiotic) (2 sources) Sulfonamides (Antibiotic) Drug Allergy 02-28-20 16 Swelling, Anaphylaxis [facility] Tetracyclines (antibiotic) (1 source) Tetracycline Drug Allergy 11-04-19 22 [facility] (20 sources) Codeine; Translations: [CODEINE] Drug Allergy 04-15-20 06 Other (See Comments) [place], [place] Comment on above: HEART ATTACK SYMPTO MS (20 sources) levoFLOXacin; Translations: [LEVOFLOXACIN IN D5W] Drug Allergy 12-18-19 17 Swelling [place], [place] (14 sources) Penicillins; Translations: [PENICILLINS] Propensity to adverse reactions to drug 04-15-20 06 Rash [place], [place] (13 sources) Sulfonamides (Antibiotic) Propensity to adverse reactions to drug 02-28-20 16 Swelling [place], [place] (8 sources) Penicillins Propensity to adverse reactions 04-15-20 06 [facility] (20 sources) Sulfonamides (Antibiotic); Translations: [SULFA (SULFONAMIDE ANTIBIOTICS)] Drug Allergy 02-28-20 16 Anaphylaxis, Swelling [facility] (16 sources) Budesonide; Translations: [BUDESONIDE] Drug Allergy 11-04-19 Other: See Comments [facility] (20 sources) levoFLOXacin Drug Allergy 12-18-19 17 Anaphylaxis, Swelling [facility] (5 sources) Penicillins Allergy to substance 11-04-19 22 [facility] (5 sources) Sulfamethoxazole Drug Allergy 11-04-19 22 Anaphylaxis [facility] (20 sources) Tetracycline; Translations: [TETRACYCLINE] Drug Allergy 11-04-19 22 Vomiting [facility] (20 sources) Trimethoprim Drug Allergy 11-04-19 22 Anaphylaxis [facility] (20 sources) Budesonide Allergy to substance 11-04-19 [facility] (20 sources) Escitalopram; Translations: [ESCITALOPRAM] Drug Allergy 12-17-19 23 Anaphylaxis [facility] (20 sources) Penicillins Drug Allergy 04-15-20 06 Hives, Rash [facility] (19 sources) Doxycycline Drug Allergy 01-21-20 24 Nausea And Vomiting [facility] (4 sources) Penicillins Propensity to adverse reactions 04-15-20 06 Hives [facility] (1 source) Budesonide Drug Allergy 08-30-20 [facility] (1 source) Codeine Drug Allergy 11-09-19 [facility] (1 source) levoFLOXacin Drug Allergy 11-09-19 [facility] (1 source) Penicillins Drug allergy (disorder) 11-09-19 [facility] (1 source) Sulfamethoxazole Drug Allergy 11-09-19 [facility] (1 source) Tetracycline Drug Allergy 11-09-19 [facility] (1 source) Trimethoprim Drug Allergy 11-09-19 [facility] Medications Current Medications Medication Drug Class(es) Dates Sig (Normalized) Sig (Original) acetaminophen 325 mg / HYDROcodone bitartrate 5 mg oral tablet (20 sources) Opioid Agonist Start: 08-13-2022 take 1 tablet by mouth every four to six hours for pain HYDROcodone-aceta minophen ([place]) 5-325 MG tablet take 1 tablet by mouth every 4 to 6 hours WHILE AWAKE if needed for POST OP PAIN for 3 days 08/13/2022 Active acetaminophen 325 mg / oxyCODONE hydrochloride 5 mg oral tablet (20 sources) Opioid Agonist Start: 03-04-2022 take 1 tablet by mouth every four to six hours for pain oxyCODONE-acetami nophen (Percocet) 5-325 MG tablet take 1 tablet by mouth every 4 to 6 hours if needed FOR POST-OP PAIN WHILE AWAKE 03/04/2022 Active Start: 01-09-2021 End: 01-16-2021 Oxycodone-Acetaminophen (Per cocet) 2.5-325 mg tablet Discontinued 1 {tbl} PO Q8H as needed January 09, 2021 12:00am January 16, 2021 6:42am albuterol 0.83 mg/ml inhalation solution (20 sources) beta2-Adrenergic Agonist Start: 10-14-2024 2.5 m g, Nebulization, Every 15 min, First dose on Thu10/14/24 at 1000, For 3 doses Start: 04-04-2023 take 2 puff(s) by mo uth every four hours for wheezing albuterol HFA (PROVENTIL HFA, VENTOLIN HFA) 90 mcg/actuation inhaler inhale 2 puffs by mouth and INTO THE LUNGS every 4 hours if needed for wheezing 04/04/2023 Active Start: 06-26-2022 albuterol 108 (90 Base) MCG/ACT inhaler every 4 hours. 06/26/2022 Active Start: 10-23-2020 take 2.5 mg by inhal ation every six hours Albuterol Sulfate 2.5 MG/3 ML solution for nebulization Active 2.5 mg INHALATION EVERY 6 HOURS WHILE AWAKE October 23, 2020 1:00am Start: 10-23-2020 End: 09-30-2024 Albuterol Sulfate 90 mcg/act uation HFA aerosol inhaler Active 2 NMA INHALATION EVERY 6 HOURS as needed for shortness of breath or wheezing 8.5 September 30, 2024 9:10am Start: 10-23-2020 End: 11-04-2021 take 1 puff(s) by inhalation every six hours Albuterol Sulfate (Proair Hfa) 90 mcg/actuation HFA aerosol inhaler Discontinued 2 PUFF INHALATION EVERY 6 HOURS January 09, 2021 12:00am November 04, 2021 10:38am Comment on above: inhale 2 puffs by mo ut and INTO THE LUNGS every 4 hours if needed for wheezing amLODIPine 10 mg oral tablet (20 sources) Dihydropyridine Calcium Channel Rachel Start: take 1 tablet by mouth once amLODIPine (NORVASC) 10 mg tablet Take 1 tablet by mouth every afternoon. 01/27/2023 Active Start: 10-23-2020 End: 01-16-2021 take 1 tablet by mouth once daily amLODIPine (Norvasc) 10 MG tablet Take 10 mg by mouth daily. 09/19/2022 Active Start: 06-11-2019 amLODIPine (NO RVASC) tablet 5 mg Comment on above: Take 1 tablet by alexa th every afternoon. aspirin 81 mg delayed release oral tablet (13 sources) Platelet Aggregation Inhibitor, Nonsteroidal Anti-inflammatory Drug Start: 06-11-2019 End: 12-01-2021 take 1 tablet by mouth twice daily aspirin 81 MG EC tablet Take 1 tablet by mouth 2 times daily 90 tablet 0 06/12/2019 12/01/2021 Discontinued (LIST CLEANUP) Start: 05-30-2019 End: 06-11-2019 take 1 tablet by mouth once daily aspirin EC 81 MG EC tablet Indications: Abnormal nuclear stress test Take 1 tablet by mouth daily 90 tablet 1 05/30/2019 06/11/2019 Discontinued (LIST CLEANUP) azithromycin 250 mg oral tablet (20 sources) Macrolide Antimicrobial Start: 11-25-2022 azithromycin (Zithromax) 250 MG tablet Every 24 hours. 11/25/2022 Active benzonatate 100 mg oral capsule (5 sources) Non-narcotic Antitussive Start: 01-09-2021 Benzonatate (Tessalon Perles) 100 mg capsule Active 100 mg PO 2 to 3 times per day as needed January 09, 2021 12:00am busPIRone hydrochloride 10 mg oral tablet (20 sources) Start: 12-07-2022 busPIRone (Buspar) 10 MG tablet 12/07/2022 Active cefdinir 300 mg oral capsule (20 sources) Cephalosporin Antibacterial Start: 05-22-2022 take 1 capsule by mouth twice daily cefdinir (Omnicef) 300 MG capsule Take 300 mg by mouth 2 times daily. 05/22/2022 Active clarithromycin 500 mg oral tablet (20 sources) Macrolide Antimicrobial clarithromycin (Biaxin) 500 MG tablet clarithromycin 500 mg tablet Active clindamycin 150 mg oral capsule (20 sources) Lincosamide Antibacterial Start: 10-17-2022 take 1 capsule by mouth twice daily clindamycin (Cleocin) 150 MG capsule take 1 capsule by mouth twice a day until finished 10/17/2022 Active Start: 06-11-2019 End: 06-12-2019 900 mg, Intravenous, EVERY 8 HOURS, 2 doses, First dose on 06/11/19 at 1700, Last dose on 06/12/19 at 0100, Post-op clonazePAM 0.5 mg oral tablet (20 sources) Benzodiazepine Start: 08-30-2024 take 2 tablets by mouth twice daily as needed Clonazepam 0.5 mg tablet Active mg PO TWICE A DAY as needed August 30, 2024 1:00am Start: 11-12-2022 take 1 tablet by alexa once daily clonazePAM (KlonoPIN) 0.5 MG tablet Take 0.5 mg by mouth Nightly. 11/12/2022 Active cyclobenzaprine hydrochloride 5 mg oral tablet (20 sources) Muscle Relaxant Start: 08-30-2024 take 1 tablet by mouth at bedtime as needed Cyclobenzaprine 5 mg tablet Active 5 mg PO AT BEDTIME as needed August 30, 2024 1:00am Start: 10-23-2020 End: 01-16-2021 take 1 tablet by mouth three times daily as needed for muscle spasms Cyclobenzaprine 10 MG tablet Discontinued 10 mg PO 3 TIMES DAILY NEEDED as needed for MUSCLE SPASMS October 23, 2020 1:00am January 16, 2021 6:43am take 1 tablet by alexa twice daily as needed cyclobenzaprine (FLEXERIL) 5 mg tablet 1 tablet as needed Orally 2 times a day for 30 days Active Comment on above: 1 tablet as needed O rally 2 times a day for 30 days dexamethasone 6 mg oral tablet (6 sources) Corticosteroid Start: 10-14-19 End: 10-19-19 take 1 tablet by mouth once daily dexAMETHasone (Decadron) 6 MG tablet Take 1 tablet (6 mg) by mouth daily for 5 days. 5 tablet 10/14/2024 Active Start: 10-14-2024 take 16 mg by mouth once 16 mg , Oral, Once, On Thu10/14/24 at 1000, For 1 dose diclofenac sodium 75 mg delayed release oral tablet (3 sources) Nonsteroidal Anti-inflammatory Drug Start: 07-16-2018 take 1 tablet by mouth twice daily diclofenac (VOLTAREN) 75 MG EC tablet Take 1 tablet by mouth 2 times daily 20 tablet 0 07/16/2018 Active doxycycline hyclate 100 mg oral capsule (20 sources) Tetracycline-class Drug Start: 11-08-2024 Doxycycline Hyclate 100 mg capsule Active mg PO November 08, 2024 1:00am Start: 12-20-2021 End: 10-10-2024 take 1 tablet by mouth twice daily doxycycline (Vibra-Tabs) 100 MG tablet Take 100 mg by mouth 2 times daily. 12/20/2021 Active escitalopram 10 mg oral tablet (20 sources) Serotonin Reuptake Inhibitor Start: 06-05-2021 End: 08-30-2024 escitalopram (Lexapro) 10 MG tablet 12/07/2022 Active fexofenadine hydrochloride 180 mg oral tablet (12 sources) Histamine-1 Receptor Antagonist Start: 04-15-2006 COOKIE 180 MG TAB Indications: Urticaria, unspecified , Angioneurotic edema not elsewhere classified Take 1 by mouth each morning 30 3 04/15/2006 Active Comment on above: Take 1 by mouth each morning fluticasone propionate 0.05 mg/actuat metered dose nasal spray (20 sources) Corticosteroid Start: 11-04-2021 End: 01-20-2025 take 2 spray(s) nasal route once daily fluticasone (Flonase) 50 MCG/ACT nasal spray Administer 2 sprays into each nostril daily. Shake gently. Before first use, prime pump. After use, clean tip and replace cap. 48 g 3 01/21/2024 Active Start: 11-04-2021 Fluticasone Pr opionate Active 2 SPRAY INTRANASAL DAILY November 04, 2021 1:00am Start: 01-09-2021 End: 01-16-2021 take 50 ug nasal route once daily Fluticasone Propionate (Flonase Allergy Relief) 50 mcg/actuation spray,suspension Discontinued 1 NMA INTRANASAL DAILY January 09, 2021 12:00am January 16, 2021 6:42am administer into each nostril Start: 01-09-2021 End: 01-16-2021 take 1 spray(s) nasal route once daily Fluticasone Propionate (Flonase Allergy Relief) 50 mcg/actuation spray,suspension Discontinued 1 SPRAY INTRANASAL DAILY January 09, 2021 12:00am January 16, 2021 6:42am administer into each nostril Start: 04-15-2006 take 2 spray(s) nasa l route once daily FLONASE 50 MCG/ACTUATION NASAL SPRAY AEROSOL Indications: Urticaria, unspecified , Angioneurotic edema not elsewhere classified 2 sprays each nostril daily 1 2 04/15/2006 Active End: 01-21-2024 fluticasone (Flonase) 50 MCG /ACT nasal spray fluticasone propionate 50 mcg/actuation nasal spray,suspension 0 01/21/2024 Discontinued (Therapy completed) Comment on above: 2 sprays each nostri l daily 30 actuat fluticasone furoate 0.1 mg/actuat / umeclidinium 0.0625 mg/actuat / vilanterol 0.025 mg/actuat dry powder inhaler (9 sources) Anticholinergic, Corticosteroid, beta2-Adrenergic Agonist Fluticasone-Umeclidi n-V ilant (Trelegy Ellipta) 100-62.5-25 MCG/ACT aerosol powder 1 puff Every 24 hours. Active Npbjxxcvwqx-Lvidlyajx-Pjqw nter (2 sources) Start: 09-30-2024 Wxlszzxwytl-Yaortpwaa-R ilanter (Trelegy Ellipta) 200-62.5-25 mcg blister with device Active 1 NMA INHALATION DAILY September 30, 2024 1:00am Start: 03-25-2024 End: 08-30-2024 Ixxrpjvtgll-Iwnjxxqzf-Fpsezq er (Trelegy Ellipta) 200-62.5-25 mcg blister with device Discontinued 1 NMA INHALATION DAILY March 25, 2024 12:00am August 30, 2024 3:14pm 12 hr guaiFENesin 600 mg extended release oral tablet (9 sources) take 1 tablet by mouth every twelve hours as needed guaiFENesin (Mucinex) 600 MG 12 hr tablet Take 1 tablet by mouth every 12 hours as needed. Active hydroCHLOROthiazide 12.5 mg / lisinopril 10 mg oral tablet (8 sources) Thiazide Diuretic, Angiotensin Converting Enzyme Inhibitor Start: End: 025 take 1 tablet by mouth once daily lisinopril-hydroCH LOROthiazide 10-12.5 MG tablet Take 1 tablet by mouth daily. 10/10/2024 Active hydrOXYzine hydrochloride 25 mg oral tablet (20 sources) Antihistamine Start: take 3 tablets by mouth at bedtime hydrOXYzine HCl (Atarax) 25 MG tablet take 3 tablets by mouth at bedtime if needed 11/12/2022 Active loratadine 10 mg oral tablet (9 sources) take 1 tablet by mouth once daily loratadine (Claritin) 10 MG tablet Take 1 tablet by mouth daily. Active meclizine hydrochloride 25 mg oral tablet (20 sources) Antiemetic Start: Meclizine 25 mg tablet Active mg PO November 08, 2024 1:00am montelukast 10 mg oral tablet (20 sources) Leukotriene Receptor Antagonist Start: take 1 tablet by mouth once daily Montelukast 10 mg tablet Active 10 mg PO daily August 30, 2024 1:00am Start: 11-25-2022 montelukast (S ingulair) 10 MG tablet Every 24 hours. 11/25/2022 Active Start: 10-23-2020 End: 01-16-2021 take 1 tablet by mouth once daily Montelukast 10 MG tablet Discontinued 10 mg PO DAILY October 23, 2020 1:00am January 16, 2021 6:43am omeprazole 20 mg delayed release oral capsule (20 sources) Proton Pump Inhibitor Start: 09-28-2023 End: 03-15-2024 take 1 capsule by mouth once daily omeprazole (PRILOSEC) 20 mg capsule Indications: Postprandial epigastric pain take 1 capsule by mouth once daily ON AN EMPTY STOMACH AT LEAST 30 MINUTES BEFORE EATING 30 capsule 2 03/15/2024 Active Start: 07-06-2023 take 1 capsule by mo ut once daily omeprazole (PRILOSEC) 20 mg capsule Indications: Postprandial epigastric pain take 1 capsule by mouth once daily TAKE ON EMPTY STOMACH AT LEAST 30 MINUTES BEFORE EATING 30 capsule 2 07/06/2023 Active Start: 04-16-2023 End: 07-06-2023 take 1 capsule by mouth once daily omeprazole (PRILOSEC) 20 mg capsule Indications: Postprandial epigastric pain Take 1 capsule by mouth once daily. On empty stomach at least 30 minutes before eating. 30 capsule 2 04/16/2023 07/06/2023 Discontinued Comment on above: Take 1 capsule by mo uth once daily. On empty stomach at least 30 minutes before eating. take 1 capsule by mo ut once daily TAKE ON EMPTY STOMACH AT LEAST 30 MINUTES BEFORE EATING oxyCODONE hydrochloride 5 mg oral tablet (2 sources) Opioid Agonist Start: 06-12-20 End: 06-15-20 take 1 tablet by mouth every six hours as needed for pain oxyCODONE (ROXICODONE) 5 MG immediate release tablet Indications: Closed 2-part intertrochanteric fracture of proximal end of right femur, initial encounter ([facility]) Take 1 tablet by mouth every 6 hours as needed for Pain for up to 3 days. 28 tablet 0 06/12/2019 06/15/2019 Active Start: 06-11-2019 oxyCODONE (KENZIE ICODONE) immediate release tablet 5 mg predniSONE 20 mg oral tablet (3 sources) Start: 11-08-2024 Prednisone 20 mg tablet Active mg PO November 08, 2024 1:00am Start: 09-30-2024 End: 10-05-2024 take 3 tablets by mouth once daily at mealtime Prednisone 20 mg tablet Discontinued 60 mg PO daily 15 September 30, 2024 1:00am October 04, 2024 1:00am October 05, 2024 1:09am administer with food or milk Start: 03-25-2024 End: 08-30-2024 Prednisone 10 mg tablet Discontinued 10 mg PO daily March 25, 2024 12:00am August 30, 2024 3:14pm take 4 tabs for three days, then 3 tabs for three days, then 2 tabs for three days, then 1 tab for 3 days pseudoephedrine hydrochloride 30 mg oral tablet (9 sources) alpha-Adrenergic Agonist Start: 10-14-2024 take 1 tablet by mouth every six hours as needed for congestion pseudoephedrine (Sudafed) 30 MG tablet Take 1 tablet (30 mg) by mouth every 6 hours as needed for congestion. 30 tablet 10/14/2024 Active ramelteon 8 mg oral tablet (20 sources) Melatonin Receptor Agonist Start: 08-28-2022 take 0.5 tablet by mouth at bedtime, then take 1 tablet by mouth at bedtime ramelteon (Rozerem) 8 MG tablet take 1/2 tablet by mouth at bedtime for 2 NIGHTS then take 1 tablet by mouth at bedtime 08/28/2022 Active Roflumilast (1 source) Phosphodiesterase 4 Inhibitor Start: 11-08-2024 take 1 tablet by mouth once daily Roflumilast (Daliresp) 500 mcg tablet Active 500 ug PO DAILY November 08, 2024 1:00am rosuvastatin calcium 10 mg oral tablet (1 source) HMG-CoA Reductase Inhibitor Start: 11-08-2024 Rosuvastatin 10 mg tablet Active mg PO November 08, 2024 1:00am traMADol hydrochloride 50 mg oral tablet (20 sources) Opioid Agonist Start: 10-21-2022 take 1 tablet by mouth every four hours traMADol (Ultram) 50 MG tablet take 1 tablet by mouth every 4 hours if needed 10/21/2022 Active Start: 12-01-2021 End: 12-04-2021 traMADol (ULTRAM) 50 MG tabl et Indications: Right wrist fracture, closed, initial encounter Take 1 tablet by mouth every 4 hours as needed for Pain for up to 3 days. Intended supply: 3 days. Take lowest dose possible to manage pain 18 tablet 0 12/01/2021 12/04/2021 Active traZODone hydrochloride 50 mg oral tablet (20 sources) Serotonin Reuptake Inhibitor Start: 12-07-2022 traZODone (Desyrel) 50 MG tablet 12/07/2022 Active vitamin b12 0.1 mg oral tablet (11 sources) Vitamin B12 take 1 tablet by mouth once daily cyanocobalamin (VITAMIN B-12) 100 mcg tab Take 100 mcg by mouth once daily. Active Comment on above: Take 100 mcg by mout h once daily. Completed/Discontinued Medications Medication Drug Class(es) Dates Sig (Normalized) Sig (Original) acetaminophen 500 mg oral tablet (13 sources) Start: 01-18-2021 End: 01-18-2021 acetaminophen (TYLENOL) tablet 1,000 mg Start: 06-11-2019 acetaminophen (TYLENOL) tablet 1,000 mg acetaminophen (T YLENOL) 325 mg cap Take by mouth. Active Comment on above: Take by mouth. albuterol 0.833 mg/ml / ipratropium bromide 0.167 mg/ml inhalation solution (12 sources) Anticholinergic, beta2-Adrenergic Agonist Start: 10-14-2024 End: 10-14-2024 3 mL, Nebulization, Once, On Thu10/14/24 at 1000, For 1 dose Start: 02-26-2021 End: 12-01-2022 take 1 mL by inhalation every four hours as needed for wheezing Ipratropium-Albuterol 0.5 mg-3 mg(2.5 mg base)/3 mL solution for nebulization Active 3 mL INHALATION EVERY 4 HOURS NEEDED as needed for SOB &/OR WHEEZING 180 November 04, 2021 1:00am Start: 02-26-2021 End: 12-01-2022 take 1 mL by inhalation every four hours as needed Ipratropium-Albuterol Active 3 ML INHALATION EVERY 4 HOURS NEEDED 180 November 04, 2021 1:00am alendronic acid 70 mg oral tablet (20 sources) Bisphosphonate Start: 01-09-2021 End: 01-16-2021 take 1 tablet by mouth every week Alendronate 70 mg tablet Discontinued 70 mg PO EVERY WEEK January 09, 2021 12:00am January 16, 2021 6:41am alendronate (Fos amax) 70 MG tablet 1 tablet 30 minutes before the first food, beverage or medicine of the day with plain water Orally Once a week for 84 Active ALPRAZolam 1 mg oral tablet (20 sources) Benzodiazepine Start: 10-23-2020 End: 08-30-2024 take 1 tablet by mouth three times daily as needed for anxiety Alprazolam 1 MG tablet Discontinued 1 mg PO 3 TIMES DAILY NEEDED as needed for Anxiety October 23, 2020 1:00am August 30, 2024 3:13pm take 1 mg by mouth once daily as needed ALPRAZolam (XANAX PO) Take 1 mg by mouth daily as needed 0 Active ALPRAZolam (XANA X PO) Take by mouth 0 Active atorvastatin 80 mg oral tablet (1 source) HMG-CoA Reductase Inhibitor Start: 05-30-2019 End: 06-11-2019 take 1 tablet by mouth once daily atorvastatin (LIPITOR) 80 MG tablet Indications: Abnormal nuclear stress test Take 1 tablet by mouth daily 30 tablet 5 05/30/2019 06/11/2019 Discontinued (LIST CLEANUP) bisacodyl 10 mg rectal suppository (5 sources) Stimulant Laxative Start: 01-09-2021 End: 01-16-2021 Bisacodyl (Dulcolax (Bisacodyl)) 10 mg suppository Discontinued 10 mg RC DAILY as needed January 09, 2021 12:00am January 16, 2021 6:42am budesonide 0.5 mg/ml inhalation suspension (5 sources) Corticosteroid Start: 02-26-2021 End: 11-04-2021 take 1 mg by inhalation twice daily Budesonide 1 mg/2 mL suspension for nebulization Discontinued 1 mg INHALATION TWICE A DAY 60 February 26, 2021 12:00am November 04, 2021 10:38am Budesonide-Formote rol (5 sources) Corticosteroid, beta2-Adrenergic Agonist Start: 01-09-2021 End: 11-04-2021 Budesonide-Formot peter (Symbicort) 160-4.5 mcg/actuation HFA aerosol inhaler Discontinued 2 NMA INHALATION TWICE A DAY January 09, 2021 12:00am November 04, 2021 10:37am Start: 01-09-2021 End: 11-04-2021 take 1 puff(s) by inhalation twice daily Budesonide-Formoterol (Symbicort) 160-4.5 mcg/actuation HFA aerosol inhaler Discontinued 2 PUFF INHALATION TWICE A DAY January 09, 2021 12:00am November 04, 2021 10:37am Start: 01-09-2021 End: 11-04-2021 take 1 puff(s) by inhalation twice daily Budesonide-Formoterol (Symbicort) 160-4.5 mcg/actuation HFA aerosol inhaler Discontinued 2 PUFF INHALATION TWICE A DAY January 08, 2021 11:00pm November 04, 2021 9:37am calcium chloride 0.0014 meq/ml / potassium chloride 0.004 meq/ml / sodium chloride 0.103 meq/ml / sodium lactate 0.028 meq/ml injectable solution (2 sources) Start: 10-14-2024 End: 10-14-2024 1,000 mL, IntraVENous, at 1,000 mL/hr, Administer over 1 Hours, Once, On Thu10/14/24 at 1000, For 1 dose carvedilol 3.125 mg oral tablet (1 source) alpha-Adrenergic Rachel, beta-Adrenergic Rachel Start: 05-30-2019 End: 06-11-2019 take 1 tablet by mouth twice daily carvedilol (COREG) 3.125 MG tablet Indications: Abnormal nuclear stress test Take 1 tablet by mouth 2 times daily 90 tablet 1 05/30/2019 06/11/2019 Discontinued (LIST CLEANUP) cetirizine hydrochloride 10 mg oral tablet (2 sources) Histamine-1 Receptor Antagonist Start: 04-15-2006 End: 04-16-2023 ZYRTEC 10 MG TAB Indications: Urticaria, unspecified , Angioneurotic edema not elsewhere classified Take one tab by mouth each evening 30 3 04/15/2006 04/16/2023 Discontinued (Discontinued by Patient) Comment on above: Take one tab by mout h each evening 12 hr fexofenadine hydrochloride 60 mg / pseudoephedrine hydrochloride 120 mg extended release oral tablet (5 sources) alpha-Adrenergic Agonist, Histamine-1 Receptor Antagonist Start: 01-09-2021 End: 01-16-2021 take 1 tablet by mouth every twelve hours as needed Fexofenadine-Pseu doephedrine (Cookie-D 12 Hour) 60-120 mg tablet extended release 12 hr Discontinued 1 {tbl} PO Q12H as needed January 09, 2021 12:00am January 16, 2021 6:43am gadobutrol (Gadavist) injection 5.6 mL (2 sources) Start: 05-13-2024 End: 05-13-2024 5.6 mL (rounded from 5.5 mL), IntraVENous, IMG once PRN, contrast, Starting on Thu05/13/24 at 0902, For 1 dose gadopiclenol (Vueway) injection 5.5 mL (2 sources) Start: 12-08-2024 End: 12-08-2024 take 5.5 mL intravenously once as needed 5.5 mL, IntraVENous, IMG once PRN, contrast, Starting on Thu12/08/24 at 0912, For 1 dose ibuprofen 400 mg oral tablet (15 sources) Nonsteroidal Anti-inflammatory Drug Start: 06-11-2019 End: 06-11-2019 ibuprofen (ADVIL;MOTRIN) tablet 400 mg Start: 04-04-2017 take 1 tablet by alexa th every eight hours as needed for pain ibuprofen (ADVIL;MOTRIN) 600 MG tablet Take 1 tablet by mouth every 8 hours as needed for Pain 20 tablet 0 04/04/2017 Active take 1 tablet by alexa th every six hours as needed ibuprofen (ADVIL) 200 mg tablet Take 200 mg by mouth every 6 hours as needed. Active Comment on above: Take 200 mg by mouth every 6 hours as needed. 1 ml LORazepam 2 mg/ml injection (2 sources) Benzodiazepine Start: 06-11-2019 End: 06-11-2019 LORazepam (ATIVAN) injection 0.5 mg Start: 06-11-2019 End: 06-11-2019 LORazepam (ATIVAN) 2 MG/ML i njection 1 ml morphine sulfate 4 mg/ml injection (5 sources) Opioid Agonist Start: 12-01-2021 End: 12-01-2021 morphine sulfate (PF) injection 4 mg Start: 06-11-2019 End: 06-11-2019 morphine (PF) injection 2 mg Start: 06-11-2019 morphine (PF) injection 4 mg Start: 06-11-2019 morphine (PF) injection 2 mg Start: 06-11-2019 End: 06-11-2019 morphine injection 1 mg nitroglycerin 0.4 mg sublingual tablet (1 source) Nitrate Vasodilator Start: 05-30-2019 End: 06-11-2019 nitroGLYCERIN (NITROSTAT) 0.4 MG SL tablet Indications: Abnormal nuclear stress test Place 1 tablet under the tongue every 5 minutes as needed for Chest pain 25 tablet 3 05/30/2019 06/11/2019 Discontinued (LIST CLEANUP) 2 ml ondansetron 2 mg/ml injection (1 source) Serotonin-3 Receptor Antagonist Start: 06-11-2019 End: 06-11-2019 ondansetron (ZOFRAN) injection 4 mg raNITIdine 150 mg oral tablet (2 sources) Histamine-2 Receptor Antagonist Start: 04-15-2006 End: 04-16-2023 ZANTAC 150 MG TAB Indications: Urticaria, unspecified , Angioneurotic edema not elsewhere classified Take one(1) tablet two(2) times daily. 60 3 04/15/2006 04/16/2023 Discontinued (Discontinued by Patient) Comment on above: Take one(1) tablet t wo(2) times daily. sodium chloride 0.111 meq/ml nasal spray (6 sources) Start: 10-23-2020 End: 01-16-2021 Sodium Chloride 45 ML aerosol,spray Discontinued 45 mL NS TWICE A DAY October 23, 2020 1:00am January 16, 2021 6:42am Start: 06-11-2019 End: 06-11-2019 0.9 % sodium chloride infusi on Problems Active Problems Problem Classification Problem Date Documented Da te Episodic/Chronic Abdominal pain (4 sources) Epigastric pain; Translations: [Epigastric pain] 04-16-2023 Episodic Alcohol-related disorders (1 source) Alcohol intoxication; Translations: [Alcohol use, unspecified with intoxication, uncomplicated] Episodic Anxiety disorders (10 sources) Panic disorder; Translations: [Panic disorder [episodic paroxysmal anxiety]] 01-09-2021 Chronic Blindness and vision defects (1 source) Unspecified visual disturbance; Translations: [Visual disturbance] Onset: 12-30-2024 Episodic Cataract (5 sources) Cataract; Translations: [Unspecified cataract] 01-09-2021 Chronic Chronic obstructive pulmonary disease and bronchiectasis (20 sources) Asthma-chronic obstructive pulmonary disease overlap syndrome; Translations: [Chronic obstructive pulmonary disease, unspecified] Onset: 11-08-2024 02-26-2021 Chronic Conditions associated with dizziness or vertigo (8 sources) Dizziness and giddiness; Translations: [Dizziness and giddiness] Onset: 06-11-2022 Episodic Diabetes mellitus without complication (5 sources) Type 2 diabetes mellitus; Translations: [Type 2 diabetes mellitus without complications] 01-09-2021 Chronic Disorders of lipid metabolism (5 sources) Hyperlipidemia; Translations: [Hyperlipidemia, unspecified] 01-09-2021 Chronic Essential hypertension (20 sources) Hypertensive disorder; Translations: [Essential (primary) hypertension] Onset: 05-30-2019 05-30-2019 Chronic External cause codes: Fall (1 source) Fall on same level; Translations: [Fall from ground level] Immunizations and screening for infectious disease (5 sources) Exposure to sexually transmissible disorder; Translations: [Contact with and (suspected) exposure to infections with a predominantly sexual mode of transmission] 01-09-2021 Episodic Intestinal obstruction without hernia (5 sources) Paralytic ileus; Translations: [Paralytic ileus] 01-09-2021 Episodic Joint disorders and dislocations; trauma-related (2 sources) Loose body in knee, right knee; Translations: [Loose body in knee, right knee] Onset: 09-20-2021 Chronic Malaise and fatigue (7 sources) Fatigue; Translations: [Other fatigue] 01-09-2021 Episodic Mood disorders (5 sources) Depressive disorder; Translations: [Depression] 01-09-2021 Chronic Open wounds of head; neck; and trunk (1 source) Scalp laceration; Translations: [Laceration without foreign body of scalp, initial encounter] Episodic Osteoarthritis (9 sources) Unspecified osteoarthritis, unspecified site; Translations: [Unilateral primary osteoarthritis, right knee] Onset: 09-20-2021 Chronic Other acquired deformities (5 sources) Incompetence of nasal valve; Translations: [Acquired deformity of nose] 10-30-2020 Episodic Other and ill-defined cerebrovascular disease (4 sources) Cerebral arterial aneurysm; Translations: [Cerebral aneurysm, nonruptured] Onset: 01-02-2025 01-02-2025 Chronic Other and ill-defined cerebrovascular disease (1 source) Cerebral aneurysm, nonruptured; Translations: [Cerebral aneurysm, nonruptured (HCC)] Onset: 01-02-2025 Chronic Other connective tissue disease (5 sources) Bilateral cramp of muscle of lower limbs; Translations: [Cramp and spasm] 01-09-2021 Episodic Other connective tissue disease (5 sources) Fibromyositis; Translations: [Fibromyalgia] 01-09-2021 Episodic Other connective tissue disease (1 source) Quadriceps weakness; Translations: [Muscle weakness (generalized)] Episodic Other connective tissue disease (1 source) Disorder of tendon; Translations: [Unspecified disorder of synovium and tendon, right thigh] Episodic Other connective tissue disease (1 source) Unspecified symptoms and signs involving the nervous system; Translations: [Stroke-like symptom] Onset: 12-30-2024 Episodic Other eye disorders (1 source) Unspecified ptosis of left eyelid; Translations: [Ptosis of left eyelid] Onset: 12-30-2024 Episodic Other fractures (4 sources) Closed fracture of one rib; Translations: [Fracture of one rib, unspecified side, initial encounter for closed fracture] Onset: 11-04-2024 11-04-2024 Episodic Other fractures (1 source) Fracture of one rib, unspecified side, initial encounter for closed fracture; Translations: [Fracture of one rib, unspecified side, initial encounter for closed fracture] Onset: 11-04-2024 Episodic Other gastrointestinal disorders (5 sources) Constipation; Translations: [Constipation, unspecified] 01-09-2021 Episodic Other gastrointestinal disorders (1 source) Altered bowel function; Translations: [Change in bowel habit] 04-16-2023 Episodic Other injuries and conditions due to external causes (2 sources) Injury of head; Translations: [Unspecified injury of head, initial encounter] Episodic Other lower respiratory disease (10 sources) Nodule of lung; Translations: [Solitary pulmonary nodule] 02-26-2021 Episodic Other lower respiratory disease (9 sources) Hypoxia; Translations: [Hypoxemia] 10-30-2020 Episodic Other lower respiratory disease (1 source) Hypoxemia; Translations: [Hypoxemia] 11-27-2022 Episodic Other lower respiratory disease (5 sources) Lung mass; Translations: [Other nonspecific abnormal finding of lung field] 12-01-2023 Episodic Other lower respiratory disease (1 source) Dyspnea; Translations: [Shortness of breath] 06-21-2024 Episodic Other lower respiratory disease (2 sources) Solitary pulmonary nodule; Translations: [Solitary pulmonary nodule] Onset: 11-08-2024 Episodic Other nervous system disorders (2 sources) Other chronic pain; Translations: [Other chronic pain] Onset: 12-01-2021 Chronic Other nervous system disorders (5 sources) Carpal tunnel syndrome; Translations: [Carpal tunnel syndrome, unspecified upper limb] 01-09-2021 Chronic Other nervous system disorders (5 sources) Abnormal sensation; Translations: [Other disturbances of skin sensation] 01-09-2021 Episodic Other non-traumatic joint disorders (5 sources) Shoulder pain; Translations: [Pain in unspecified shoulder] 01-09-2021 Episodic Other non-traumatic joint disorders (6 sources) Pain in right knee; Translations: [Pain in joint, lower leg] Episodic Other non-traumatic joint disorders (2 sources) Pain in right hip joint; Translations: [Right hip pain] Other nutritional; endocrine; and metabolic disorders (1 source) Abnormal weight loss; Translations: [Abnormal weight loss] 04-16-2023 Episodic Other skin disorders (3 sources) Disorder of left lower extremity; Translations: [Localized swelling, mass and lump, left lower limb] 03-18-2023 Episodic Other upper respiratory disease (5 sources) Allergic rhinitis; Translations: [Allergic rhinitis, unspecified] 01-09-2021 Chronic Other upper respiratory disease (5 sources) Hypertrophy of nasal turbinates; Translations: [Hypertrophy of nasal turbinates] 10-30-2020 Episodic Other upper respiratory disease (5 sources) Polyp of nasal cavity and/or nasal sinus; Translations: [Nasal polyp, unspecified] 10-30-2020 Episodic Other upper respiratory disease (5 sources) Deviated nasal septum; Translations: [Deviated nasal septum] 10-30-2020 Episodic Other upper respiratory infections (12 sources) Chronic pansinusitis; Translations: [Chronic pansinusitis] 10-30-2020 Chronic Other upper respiratory infections (10 sources) Inflammatory disorder of upper respiratory tract; Translations: [Acute upper respiratory infection, unspecified] Onset: 10-14-2024 10-14-2024 Episodic Otitis media and related conditions (10 sources) Otitis media; Translations: [Otitis media, unspecified, unspecified ear] Onset: 05-23-2024 01-09-2021 Episodic Pleurisy; pneumothorax; pulmonary collapse (7 sources) Pneumothorax; Translations: [Pneumothorax, unspecified] Onset: 11-04-2024 11-04-2024 Episodic Residual codes; unclassified (2 sources) Daytime hypersomnia; Translations: [Hypersomnia, unspecified] 11-08-2024 Chronic Residual codes; unclassified (2 sources) Hypersomnia, unspecified; Translations: [Hypersomnia, unspecified] Onset: 11-08-2024 Chronic Residual codes; unclassified (5 sources) Insomnia; Translations: [Insomnia, unspecified] 01-09-2021 Episodic Residual codes; unclassified (5 sources) Tobacco user; Translations: [Tobacco use] 01-09-2021 Episodic Rheumatoid arthritis and related disease (2 sources) Juvenile arthritis, unspecified, right knee; Translations: [Juvenile arthritis, unspecified, right knee] Onset: 09-20-2021 Chronic Screening and history of mental health and substance abuse codes (5 sources) Tobacco use and exposure - finding; Translations: [Personal history of nicotine dependence] Onset: 01-02-2025 01-02-2025 Episodic Skull and face fractures (1 source) Closed fracture of nasal bones; Translations: [Closed fracture of nasal bone, initial encounter] Episodic Spondylosis; intervertebral disc disorders; other back problems (5 sources) Degeneration of cervical intervertebral disc; Translations: [Other cervical disc degeneration, unspecified cervical region] 01-09-2021 Chronic Spondylosis; intervertebral disc disorders; other back problems (17 sources) Cervicalgia; Translations: [Cervical radiculitis] Onset: 12-01-2021 Episodic Sprains and strains (1 source) Strain of neck muscle; Translations: [Strain of neck muscle, initial encounter] Episodic Substance-related disorders (17 sources) Nicotine dependence, unspecified, uncomplicated; Translations: [Nicotine dependence] Onset: 12-01-2021 Chronic Comment on above: currently 1/2 ppd Unclassified (2 sources) New Patient; Translations: [New Patient] Onset: 01-21-2024 Viral infection (5 sources) Herpes simplex; Translations: [Herpesviral infection, unspecified] 01-09-2021 Episodic Past or Other Problems Problem Classification Problem [...] injury, r knee, init] Onset: 09-20-2021 Episodic Nutritional deficiencies (3 sources) Cachexia; Translations: [Cachexia] Onset: 09-30-2024 09-30-2024 Episodic Other aftercare (2 sources) Other snf (current) drug therapy; Translations: [Other snf (current) drug therapy] Onset: 12-01-2021 Episodic Other [...] in left hand] Onset: 12-01-2021 Episodic Other lower respiratory disease (2 sources) Other nonspecific abnormal finding of lung field; Translations: [Swelling, mass, or lump in chest] Onset: 11-03-2024 12-07-2023 Episodic Other lower respiratory disease (1 source) Hypoxemia; Translations: [Hypoxemia] Onset: 09-30-2024 Episodic Other lower respiratory disease (2 sources) Shortness of breath; Translations: [Shortness of breath] Onset: 09-08-2024 Episodic Other non-traumatic joint disorders (2 sources) Pain in right wrist; Translations: [Pain in right wrist] Onset: 12-01-2021 Episodic Other screening for suspected conditions (not mental disorders or infectious disease) (20 sources) Thallium stress test abnormal; Translations: [Abnormal result of other cardiovascular function study] Onset: 05-30-2019 05-30-2019 Episodic Residual codes; unclassified (2 sources) Edema, unspecified; Translations: [Edema, unspecified] Onset: 07-12-2021 Episodic Unclassified (1 source) Abnormal results of function studies of other organs and systems 05-13-2024 Results Test Name Value Interpretation Reference Range Facility [facility] 02-03-2025 [facility] Telephone ([facility]) SULLY PERDOMO ([id number]) 1955 F Date Time Provider Department 02/03/25 JENNIFER LEBRON During your visit today, we recorded the following information about you: Jennifer Lebron RN 02/03/2025 8:55 AM Signed Spoke with patient via phone regarding date/time of upcoming DSA with Dr. Murrell on 02/17/25 @1030am. All questions answered. Allergies As of Date: 02/03/2025 Noted Allergy Reaction ESCITALOPRAM 12/16/2022 10 - Anaphylaxis LEVOFLOXACIN IN D5W 12/17/2016 7 - Swelling BUDESONIDE 11/04/2021 14 - Other: See Comments Comments: Other reaction(s): boils CODEINE 04/15/2006 Comments: chest pain PENICILLINS 04/15/2006 4 - Hives SULFA (SULFONAMIDE ANTIBIOTICS) 05/29/2022 10 - Anaphylaxis TETRACYCLINE 11/04/2021 11 - Vomiting Comments: Other reaction(s): Vomiting Date Reviewed: 01/02/2025 Reviewed by: Mindy Christianson MA - Fully Assessed Prescriptions as of 02/03/2025 - omeprazole (PRILOSEC) 20 mg capsule take 1 capsule by mouth once daily ON AN EMPTY STOMACH AT LEAST 30 MINUTES BEFORE EATING - albuterol HFA (PROVENTIL HFA, VENTOLIN HFA) 90 mcg/actuation inhaler inhale 2 puffs by mouth and INTO THE LUNGS every 4 hours if needed for wheezing - amLODIPine (NORVASC) 10 mg tablet Take 1 tablet by mouth every afternoon. - cyclobenzaprine (FLEXERIL) 5 mg tablet 1 tablet as needed Orally 2 times a day for 30 days - acetaminophen (TYLENOL) 325 mg cap Take by mouth. - ibuprofen (ADVIL) 200 mg tablet Take 200 mg by mouth every 6 hours as needed. - cyanocobalamin (VITAMIN B-12) 100 mcg tab Take 100 mcg by mouth once daily. - COOKIE 180 MG TAB Take 1 by mouth each morning - FLONASE 50 MCG/ACTUATION NASAL SPRAY AEROSOL 2 sprays each nostril daily Meds Comments as of 05/29/2022: May 29, 2022 Denies new medications or medication changes within the last 30 days. Lizzie Ferrari RN Problem List As Of Date 02/03/2025 Noted Resolved Cerebral aneurysm, nonruptured (HCC) [I67.1] 01/02/2025 Personal history of tobacco use [Z87.891] 01/02/2025 Nicotine dependence, cigarettes, uncomplicated *01/02/2025 Encounter Status:Closed by JENNIFER LEBRON on 02/03/25 [facility] 01-24-2025 [facility] SULLY PERDOMO ([id number]) 1955 F Date Time Provider [facility] [facility] During your visit today, we recorded the following information about you: Stephan Fowler, RN 01/24/2025 4:30 PM Signed Spoke with patient and rescheduled her for diagnostic angiogram with Dr. Bess on 02/17/25. Provided instructions and will send through [employer]. Allergies As of Date: 01/24/2025 Noted Allergy Reaction ESCITALOPRAM 12/16/2022 10 - Anaphylaxis LEVOFLOXACIN IN D5W 12/17/2016 7 - Swelling BUDESONIDE 11/04/2021 14 - Other: See Comments Comments: Other reaction(s): boils CODEINE 04/15/2006 Comments: chest pain PENICILLINS 04/15/2006 4 - Hives SULFA (SULFONAMIDE ANTIBIOTICS) 05/29/2022 10 - Anaphylaxis TETRACYCLINE 11/04/2021 11 - Vomiting Comments: Other reaction(s): Vomiting Date Reviewed: 01/02/2025 Reviewed by: Mindy Christianson MA - Fully Assessed Reason for Visit: 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 - Other [[id number]] Prescriptions as of 01/24/2025 - omeprazole (PRILOSEC) 20 mg capsule take 1 capsule by mouth once daily ON AN EMPTY STOMACH AT LEAST 30 MINUTES BEFORE EATING - albuterol HFA (PROVENTIL HFA, VENTOLIN HFA) 90 mcg/actuation inhaler inhale 2 puffs by mouth and INTO THE LUNGS every 4 hours if needed for wheezing - amLODIPine (NORVASC) 10 mg tablet Take 1 tablet by mouth every afternoon. - cyclobenzaprine (FLEXERIL) 5 mg tablet 1 tablet as needed Orally 2 times a day for 30 days - acetaminophen (TYLENOL) 325 mg cap Take by mouth. - ibuprofen (ADVIL) 200 mg tablet Take 200 mg by mouth every 6 hours as needed. - cyanocobalamin (VITAMIN B-12) 100 mcg tab Take 100 mcg by mouth once daily. - COOKIE 180 MG TAB Take 1 by mouth each morning - FLONASE 50 MCG/ACTUATION NASAL SPRAY AEROSOL 2 sprays each nostril daily Meds Comments as of 05/29/2022: May 29, 2022 Denies new medications or medication changes within the last 30 days. Lizzie Ferrari RN Problem List As Of Date 01/24/2025 Noted Resolved Cerebral aneurysm, nonruptured (HCC) [I67.1] 01/02/2025 Personal history of tobacco use [Z87.891] 01/02/2025 Nicotine dependence, cigarettes, uncomplicated *01/02/2025 Encounter Status:Closed by STEPHAN FOWLER on 01/24/25 [facility] 01-18-2025 [facility] Telephone ([facility]) SULLY PERDOMO ([id number]) 1955 F Date Time Provider Department 01/18/25 JENNIFER LEBRON During your visit today, we recorded the following information about you: Jennifer Lebron RN 01/18/2025 3:36 PM Signed Left voicemail message regarding upcoming [facility]IL DSA on 01/19/[address] Bess at 11am. Instructed patient to call with any questions. 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 - cyclobenzaprine (FLEXERIL) 5 mg tablet 1 tablet as needed Orally 2 times a day for 30 days - acetaminophen (TYLENOL) 325 mg cap Take by mouth. - ibuprofen (ADVIL) 200 mg tablet Take 200 mg by mouth every 6 hours as needed. - cyanocobalamin (VITAMIN B-12) 100 mcg tab Take 100 mcg by mouth once daily. - COOKIE 180 MG TAB Take 1 by mouth each morning - FLONASE 50 MCG/ACTUATION NASAL SPRAY AEROSOL 2 sprays each nostril daily Meds Comments as of 05/29/2022: May 29, 2022 Denies new medications or medication changes within the last 30 days. Lizzie Ferrari RN Problem List As Of Date 01/18/2025 Noted Resolved Cerebral aneurysm, nonruptured (HCC) [I67.1] 01/02/2025 Personal history of tobacco use [Z87.891] 01/02/2025 Nicotine dependence, cigarettes, uncomplicated *01/02/2025 Encounter Status:Closed by JENNIFER LEBRON on 01/18/25 [facility] 01-10-2025 FEMIN Telephone (AKNEIL) SULLY PERDOMO ([id number]) 1955 F Date Time Provider Department 01/10/25 GOPI BESS During your visit today, we recorded the following information about you: Jama Whitehead RN 01/10/2025 11:00 AM Signed Gave arrival time and information for procedure with Dr. Bess 01/19/25 at 1100/1000 arrival. Patient had not reviewed her MyChart letter yet, reminded her it will be in an najma not an email. Reviewed important NPO, medication, and procedure/arrival information. Patient confirmed she had information written down from previous scheduling call, and our call. Gave NIL nurses' office number to call back with any other questions or concerns. Allergies As of Date: 01/10/2025 Noted Allergy Reaction ESCITALOPRAM 12/16/2022 10 - Anaphylaxis LEVOFLOXACIN IN D5W 12/17/2016 7 - Swelling BUDESONIDE 11/04/2021 14 - Other: See Comments Comments: Other reaction(s): boils CODEINE 04/15/2006 Comments: chest pain PENICILLINS 04/15/2006 4 - Hives SULFA (SULFONAMIDE ANTIBIOTICS) 05/29/2022 10 - Anaphylaxis TETRACYCLINE 11/04/2021 11 - Vomiting Comments: Other reaction(s): Vomiting Date Reviewed: 01/02/2025 Reviewed by: Mindy Christianson MA - Fully Assessed Reason for Visit: Appointment [186] Cmt: Call for appointment time and verification of instructional letter for 01/19/25 Prescriptions as of 01/10/2025 - omeprazole (PRILOSEC) 20 mg capsule take 1 capsule by mouth once daily ON AN EMPTY STOMACH AT LEAST 30 MINUTES BEFORE EATING - albuterol HFA (PROVENTIL HFA, VENTOLIN HFA) 90 mcg/actuation inhaler inhale 2 puffs by mouth and INTO THE LUNGS every 4 hours if needed for wheezing - amLODIPine (NORVASC) 10 mg tablet Take 1 tablet by mouth every afternoon. - cyclobenzaprine (FLEXERIL) 5 mg tablet 1 tablet as needed Orally 2 times a day for 30 days - acetaminophen (TYLENOL) 325 mg cap Take by mouth. - ibuprofen (ADVIL) 200 mg tablet Take 200 mg by mouth every 6 hours as needed. - cyanocobalamin (VITAMIN B-12) 100 mcg tab Take 100 mcg by mouth once daily. - COOKIE 180 MG TAB Take 1 by mouth each morning - FLONASE 50 MCG/ACTUATION NASAL SPRAY AEROSOL 2 sprays each nostril daily Meds Comments as of 05/29/2022: May 29, 2022 Denies new medications or medication changes within the last 30 days. Lizzie Ferrari RN Problem List As Of Date 01/10/2025 Noted Resolved Cerebral aneurysm, nonruptured (HCC) [I67.1] 01/02/2025 Personal history of tobacco use [Z87.891] 01/02/2025 Nicotine dependence, cigarettes, uncomplicated *01/02/2025 Encounter Status:Closed by JAMA WHITEHEAD on 01/10/25 [facility] SULLY PERDOMO ([id number]) 1955 F Date Time Provider Department 01/03/25 GOPI BESS [facility] During your visit today, we recorded the following information about you: Stephan Fowler RN 01/03/2025 2:22 PM Signed Left for patient to call and schedule diagnostic angiogram with Dr. Bess. Provided call back number to call and schedule. Felecia Cabezas 01/04/2025 9:10 AM Signed Patient gave call back to speak with nurse to schedule diagnostic angiogram with Dr. Bess. Sent chat message and call transferred. Stephan Fowler RN 01/04/2025 9:28 AM Signed Spoke with patient and scheduled her for diagnostic angiogram on 01/19/[address] Bess. Reviewed instructions and will send through [employer]. Provided call back number to call with any questions. Labs drawn 12/30/24. Allergies As of Date: 01/03/2025 Noted Allergy Reaction ESCITALOPRAM 12/16/2022 10 - Anaphylaxis LEVOFLOXACIN IN D5W 12/17/2016 7 - Swelling BUDESONIDE 11/04/2021 14 - Other: See Comments Comments: Other reaction(s): boils CODEINE 04/15/2006 Comments: chest pain PENICILLINS 04/15/2006 4 - Hives SULFA (SULFONAMIDE ANTIBIOTICS) 05/29/2022 10 - Anaphylaxis TETRACYCLINE 11/04/2021 11 - Vomiting Comments: Other reaction(s): Vomiting Date Reviewed: 01/02/2025 Reviewed by: Mindy Christianson MA - Fully Assessed Prescriptions as of 01/04/2025 - omeprazole (PRILOSEC) 20 mg capsule take 1 capsule by mouth once daily ON AN EMPTY STOMACH AT LEAST 30 MINUTES BEFORE EATING - albuterol HFA (PROVENTIL HFA, VENTOLIN HFA) 90 mcg/actuation inhaler inhale 2 puffs by mouth and INTO THE LUNGS every 4 hours if needed for wheezing - amLODIPine (NORVASC) 10 mg tablet Take 1 tablet by mouth every afternoon. - cyclobenzaprine (FLEXERIL) 5 mg tablet 1 tablet as needed Orally 2 times a day for 30 days - acetaminophen (TYLENOL) 325 mg cap Take by mouth. - ibuprofen (ADVIL) 200 mg tablet Take 200 mg by mouth every 6 hours as needed. - cyanocobalamin (VITAMIN B-12) 100 mcg tab Take 100 mcg by mouth once daily. - COOKIE 180 MG TAB Take 1 by mouth each morning - FLONASE 50 MCG/ACTUATION NASAL SPRAY AEROSOL 2 sprays each nostril daily Meds Comments as of 05/29/2022: May 29, 2022 Denies new medications or medication changes within the last 30 days. Lizzie Ferrari RN Problem List As Of Date 01/03/2025 Noted Resolved Cerebral aneurysm, nonruptured (HCC) [I67.1] 01/02/2025 Personal history of tobacco use [Z87.891] 01/02/2025 Nicotine dependence, cigarettes, uncomplicated *01/02/2025 Encounter Status:Closed by STEPHAN FOWLER on 01/03/25 [facility] 01-02-2025 CNOV Office Visit (NSEAP) SULLY PERDOMO ([id number]) 1955 F Date Time Provider Department 01/02/25 11:20 AM GOPI BESS During your visit today, we recorded the following information about you: Pulse Blood pressure Weight Height 86/minute 144/73 52.2 kg 1.651 m Gopi Bess MD 01/02/2025 11:50 AM Signed You will have a diagnostic catheter angiogram scheduled at [facility] within the next few weeks. This test will provide a more detailed view of your aneurysm (currently measuring about 3-4 millimeters) and will help check for any additional aneurysms. Remember to arrange for someone to drive you home on the day of the procedure. You are strongly advised to quit smoking completely, as your history of smoking increases the risk associated with your aneurysm. Continue to monitor your blood pressure at home and keep a record of your readings, especially since today's reading was a bit high (likely related to nerves during the visit). Follow up with your ENT as planned regarding your sinus infection and any additional testing (such as a swab) to further evaluate your sinus issues. If you experience any worsening dizziness, changes in vision, or new symptoms, please contact our office promptly. Gopi Bess MD 01/02/2025 1:33 PM Signed Cerebrovascular Center: Cerebrovascular Neurosurgery and Endovascular Surgical Neuroradiology New Visit Sully Perdomo [facility]#: [id number] Date of Service: 01/02/2025 Primary Care Provider: Jeremiah Martínez MD The patient was referred by Sergio Meneses MD for opinion regarding incidental cerebral aneurysm. I will provide a written report of my findings to the referring through letter, e-communication, or epic. Subjective Chief Complaint: Unruptured aneurysm Sully is a 69-year-old female with a history of chronic sinusitis, presenting for evaluation of a recently discovered brain aneurysm. Sully reports a history of chronic sinusitis, for which she has undergone two sinus surgeries. She experiences persistent sinus drainage down the back of her throat and has been feeling really dizzy for a few months. The dizziness is described as a heavy head sensation rather than spinning and does not resolve on its own. It worsens throughout the day, often requiring her to lie down in a dark room by mid-afternoon to alleviate symptoms. She finds the dizziness annoying and stressful and suspects it may be related to her sinus issues. She has been following her ENT's recommendations, including a course of antibiotics, nasal sprays, and nasal irrigation, which have helped manage her sinus symptoms but have not resolved the dizziness. She is scheduled to see her doctor tomorrow for a possible swab to identify any ongoing infection. A few months ago, she visited the ER due to swelling over her eye, prompting concerns of a stroke. A CT scan was performed, and she is scheduled for a follow-up MRI to monitor for changes. She reports persistent swelling around the eye, which has decreased but is still present. She also experiences blurry vision and floaters but does not report dry eye. She recently saw an eye doctor, who prescribed new glasses due to changes in her vision and advised her to continue following up with her ENT. She was recently informed of a small aneurysm detected on imaging, which she was previously unaware of. She does not have a personal or family history of stroke, brain aneurysm, or polycystic kidney or ovarian disease. She has two healthy children, aged 28 and 45. She has a significant smoking history, having started at age 18 and previously smoking up to a pack and a half per day. She has reduced her smoking to two cigarettes per day over the past year. She also reports a lung nodule found by her insulation helper, for which she is scheduled to have a CT scan to monitor for growth. She expresses anxiety about this finding and her current health issues. Stroke Event Information Handedness: Smoking: Yes Illicit drug use: No Personal HX of HTN: Yes Personal HX of kidney disease: No Family History of SAH, aneurysms, stroke, vascular malformations, other neurological diseases? No REVIEW OF SYSYEMS 14-point systems were reviewed and found negative except to what mentioned in HPI. Gopi Bess MD There is no problem list on file for this patient. PAST SURGICAL HISTORY Procedure Laterality Date APPENDECTOMY COLONOSCOPY SCREENING 10 years ago per patient SINUSOTOMY FRONTAL EXTERNAL SIMPLE 09/07/1998 Removal of sinus abscess Allergies: Escitalopram, Levofloxacin In D5w, Budesonide, Codeine, Penicillins, Sulfa (Sulfonamide Antibiotics), and Tetracycline Medications: Current Outpatient Medications Medication Sig omeprazole (PRILOSEC) 20 mg capsule take 1 capsule by alexa (more content not included)... Normal [facility] ALLIED HEALTHon 12-30-2024 ALLIED HEALTH HNO ID: [id number] Author: JACLYN MAURO Tech Service: Radiology Author Type: 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 Type: Allied Health Filed: 12/30/2024 14:44 Note Text: Radiology Service Progress Note DATE OF SERVICE: December 30, 2024 TIME: 2:37 PM PATIENT IDENTITY VERIFICATION COMPLETED USING TWO (2) STANDARD IDENTIFIERS: Name and Date of confirmed by patient verbally and Name and Date of confirmed by identification band. FALL SCREENING: Has the patient had 2 falls in the last year or 1 fall with injury or currently using an Ambulatory Assistive Device (Walker, Cane, Wheelchair, Crutches, etc.)? Emergency Room Patient: Screened in ED PATIENT GENDER DATA: Assigned female at . status: : No status: NO. PATIENT RELEVANT IMPLANT DATA REVIEWED: Not Applicable PATIENT PRESENTS WITH AN IMPLANTABLE OR ATTACHED FLIGHT ENGINEER PERFORMANCE QUALIFIED: No ALLERGIES: Reviewed and unchanged CONTRAST ALLERGY: NO. EXAM: CT -CONTRAST INDUCED NEPHROPATHY RISK FACTORS: Not applicable CREATININE: Creatinine Date Value Ref Range Status 12/30/2024 0.59 0.58 - 0.96 mg/dL Final Estimated Glomerular Filtration Rate Date Value Ref Range Status 12/30/2024 99 >=60 mL/min/1.73m? Final Comment: Estimated Glomerular Filtration Rate (eGFR) is calculated using the 2020 CKD-EPI creatinine equation. This equation utilizes serum creatinine, sex, and age as parameters. The creatinine assay has traceable calibration to isotope dilution-mass spectrometry. Refer to KDIGO guidelines for clinical interpretation. In patients with unstable renal function, e.g. those with acute kidney injury, the eGFR may not accurately reflect actual GFR. P.O.C.T. RESULTS: POC done: Yes, See Lab Tab December 30, 2024 TREATMENT: N/A PERIPHERAL IV DATA: Inpatient - refer to LDA documentation RADIOLOGY DEPARTMENT: CT; Exam(s) Completed: Brain , CTA Brain , and CTA Neck SIGNATURE: Kiara Khan PATIENT NAME: Sully Perdomo DATE: December 30, 2024 TIME: 2:37 PM Normal [facility] Basic metabolic 2000 panelon 12-30-2024 Anion gap [Moles/Vol] 11 mmol/L Normal 8-15 [facility] Comment on above: Order Comment: Speci men Type: BLOOD SPECIMEN Ordering Facility: [facility] Address: [address] [id number] Performed By: #### 2 1-2, #### [facility] CLIA [id number] [address] [place] [address] [place] Calcium [Mass/Vol] 9.3 mg/dL Normal 8.5-10.2 [facility] Comment on above: Order Comment: Speci men Type: BLOOD SPECIMEN Ordering Facility: [facility] Address: [address] [place] [address] Performed By: #### 2 2, #### [facility] CLIA [id number] [address] [place] Chloride [Moles/Vol] 107 mmol/L Normal 98-107 [facility] Comment on above: Order Comment: Speci men Type: BLOOD SPECIMEN Ordering Facility: [facility] Address: [address] [place] [address] Performed By: #### 2 2, #### [facility] CLIA [id number] [address] [place] [address] [place] CO2 [Moles/Vol] 26 mmol/L Normal 22-30 [facility] Comment on above: Order Comment: Speci men Type: BLOOD SPECIMEN Ordering Facility: [facility] Address: [address] [id number] Performed By: #### 2 2, #### [facility] CLIA [id number] [address] [place] [address] [place] Creatinine [Mass/Vol] 0.59 mg/dL Normal 0.58-0.96 [facility] Comment on above: Order Comment: Speci men Type: BLOOD SPECIMEN Ordering Facility: [facility] Address: [address] [place] [address] Performed By: #### 2 4320-2, #### [facility] CLIA [id number] [address] [place] [address] [place] Creatinine and Glomerular filtration rate.predicted panel (S/P/Bld) 99 mL/min/1.73m??? Normal >=60 [facility] Comment on above: Order Comment: Rubio ayala Type: BLOOD SPECIMEN Ordering Facility: [facility] Address: [address] [place] [address] Result Comment: Samantha mated Glomerular Filtration Rate (eGFR) is calculated using the 2020 CKD-EPI creatinine equation. This equation utilizes serum creatinine, sex, and age as parameters. The creatinine assay has traceable calibration to isotope dilution-mass spectrometry. Refer to KDIGO guidelines for clinical interpretation. In patients with unstable renal function, e.g. those with acute kidney injury, the eGFR may not accurately reflect actual GFR. Performed By: #### 2 4321-2, #### [facility] CLIA [id number] [address] [place] [address] [place] Glucose [Mass/Vol] 130 mg/dL High 74-99 [facility] Comment on above: Order Comment: Rubio ayala Type: BLOOD SPECIMEN Ordering Facility: [facility] Address: [address] [place] [address] Result Comment: The [place] Diabetes Association (ADA) provides guidance for cutoff values for fasting glucose and random glucose. The ADA defines fasting as no caloric intake for at least 8 hours. Fasting plasma glucose results between 100 to 125 mg/dL indicate increased risk for diabetes (prediabetes). Fasting plasma glucose results greater than or equal to 126 mg/dL meet the criteria for diagnosis of diabetes. In the absence of unequivocal hyperglycemia, results should be confirmed by repeat testing. In a patient with classic symptoms of hyperglycemia or hyperglycemic crisis, random plasma glucose results greater than or equal to 200 mg/dL meet the criteria for diagnosis of diabetes. Reference: Standards of Medical Care in Diabetes 2016, [place] [employer] Association. Diabetes Care. 2016.39(Suppl 1). Performed By: #### 2 4321-2, #### [facility] CLIA [id number] [address] [place] [address] [place] Potassium [Moles/Vol] 3.7 mmol/L Normal 3.7-5.1 [facility] Comment on above: Order Comment: Speci men Type: BLOOD SPECIMEN Ordering Facility: [facility] Address: [address] [place] [address] Performed By: #### 2 4321-2, #### [facility] CLIA [id number] [address] [place] [facility] Sodium [Moles/Vol] 144 mmol/L Normal 136-144 [facility] Comment on above: Order Comment: Speci men Type: BLOOD SPECIMEN Ordering Facility: [facility] Address: [address] [place] [address] Performed By: #### 2 4320-2, #### [facility] CLIA [id number] [address] STATES OF [facility] Urea nitrogen [Mass/Vol] 8 mg/dL Normal 7-21 [facility] Comment on above: Order Comment: Speci men Type: BLOOD SPECIMEN Ordering Facility: [facility] Address: [address] [place] [address] Performed By: #### 2 4320-2, #### [facility] CLIA [id number] [address] OF [facility] CBC W Auto Differential pane l (Bld)on 12-30-2024 Basophils (Bld) [#/Vol] 0.06 10*3/uL Normal <0.11 [facility] Comment on above: Order Comment: Speci men Type: BLOOD SPECIMEN Ordering Facility: [facility] Address: [address] [place] [address] Performed By: #### 5 7021-8 #### [facility] CLIA [id number] [address] Basophils/100 WBC (Bld) 0.8 % Normal [facility] Comment on above: Order Comment: Speci men Type: BLOOD SPECIMEN Ordering Facility: [facility] Address: [address] [place] [address] Performed By: #### 5 7021-8 #### [facility] CLIA [id number] [address] Differential cell count method Nom (Bld) Auto Normal [facility] Comment on above: Order Comment: Speci men Type: BLOOD SPECIMEN Ordering Facility: [facility] Address: [address] [place] [address] Performed By: #### 5 7021-8 #### [facility] CLIA [id number] [address] Eosinophils (Bld) [#/Vol] 0.09 10*3/uL Normal <0.46 [facility] Comment on above: Order Comment: Speci men Type: BLOOD SPECIMEN Ordering Facility: [facility] Address: [address] [place] [address] Performed By: #### 5 7021-8 #### [facility] CLIA [id number] [address] Eosinophils/100 WBC (Bld) 1.2 % Normal [facility] Comment on above: Order Comment: Speci men Type: BLOOD SPECIMEN Ordering Facility: [facility] Address: [address] [place] [address] Performed By: #### 5 7021-8 #### [facility] CLIA [id number] [address] Erythrocyte distribution width (RBC) [Ratio] 13.3 % Normal 11.5-15.0 [facility] Comment on above: Order Comment: Speci men Type: BLOOD SPECIMEN Ordering Facility: [facility] Address: [address] [place] [address] Performed By: #### 5 7021-8 #### [facility] CLIA [id number] [address] Hematocrit (Bld) [Volume fraction] 42.6 % Normal 36.0-46.0 [facility] Comment on above: Order Comment: Speci men Type: BLOOD SPECIMEN Ordering Facility: [facility] Address: [address] [place] [address] Performed By: #### 5 7021-8 #### [facility] CLIA [id number] [address] [place] Hemoglobin (Bld) [Mass/Vol] 13.8 g/dL Normal 11.5-15.5 [facility] Comment on above: Order Comment: Speci men Type: BLOOD SPECIMEN Ordering Facility: [facility] Address: [address] [place] [address] Performed By: #### 5 7021-8 #### [facility] CLIA [id number] [address] [place] [address] [place] Immature granulocytes (Bld) [#/Vol] 0.03 10*3/uL Normal <0.10 [facility] Comment on above: Order Comment: Speci men Type: BLOOD SPECIMEN Ordering Facility: [facility] Address: [address] [place] [address] Performed By: #### 5 7021-8 #### [facility] CLIA [id number] [address] [place] Immature granulocytes/100 WBC (Bld) 0.4 % Normal [facility] Comment on above: Order Comment: Speci men Type: BLOOD SPECIMEN Ordering Facility: [facility] Address: [address] [place] [address] Performed By: #### 5 7021-8 #### [facility] CLIA [id number] [address] [place] Lymphocytes (Bld) [#/Vol] 1.86 10*3/uL Normal 1.00-4.00 [facility] Comment on above: Order Comment: Speci men Type: BLOOD SPECIMEN Ordering Facility: [facility] Address: [address] [place] [address] Performed By: #### 5 7021-8 #### [facility] CLIA [id number] [address] [place] Lymphocytes/100 WBC (Bld) 24.2 % Normal [facility] Comment on above: Order Comment: Speci men Type: BLOOD SPECIMEN Ordering Facility: [facility] Address: [address] [place] [address] Performed By: #### 5 7021-8 #### [facility] CLIA [id number] [address] MCH (RBC) [Entitic mass] 31.1 pg Normal 26.0-34.0 [facility] Comment on above: Order Comment: Speci men Type: BLOOD SPECIMEN Ordering Facility: [facility] Address: [address] [place] [address] Performed By: #### 5 7021-8 #### [facility] CLIA [id number] [address] MCHC (RBC) [Mass/Vol] 32.4 g/dL Normal 30.5-36.0 [facility] Comment on above: Order Comment: Speci men Type: BLOOD SPECIMEN Ordering Facility: [facility] Address: [address] [place] [address] Performed By: #### 5 7021-8 #### [facility] CLIA [id number] [address] MCV (RBC) [Entitic vol] 95.9 fL Normal 80.0-100.0 [facility] Comment on above: Order Comment: Speci men Type: BLOOD SPECIMEN Ordering Facility: [facility] Address: [address] [place] [address] Performed By: #### 5 7021-8 #### [facility] CLIA [id number] [address] Monocytes (Bld) [#/Vol] 0.57 10*3/uL Normal <0.87 [facility] Comment on above: Order Comment: Speci men Type: BLOOD SPECIMEN Ordering Facility: [facility] Address: [address] [place] [address] Performed By: #### 5 7021-8 #### [facility] CLIA [id number] [address] Monocytes/100 WBC (Bld) 7.4 % Normal [facility] Comment on above: Order Comment: Speci men Type: BLOOD SPECIMEN Ordering Facility: [facility] Address: [address] [place] [address] Performed By: #### 5 7021-8 #### [facility] CLIA [id number] [address] [place] Neutrophils (Bld) [#/Vol] 5.08 10*3/uL Normal 1.45-7.50 [facility] Comment on above: Order Comment: Speci men Type: BLOOD SPECIMEN Ordering Facility: [facility] Address: [address] [place] [address] Performed By: #### 5 7021-8 #### [facility] CLIA [id number] [address] Neutrophils/100 WBC (Bld) 66.0 % Normal [facility] Comment on above: Order Comment: Speci men Type: BLOOD SPECIMEN Ordering Facility: [facility] Address: [address] [place] [address] Performed By: #### 5 7021-8 #### [facility] CLIA [id number] [address] [place] Nucleated RBC (Bld) [#/Vol] 10*3/uL Normal <0.01 [facility] Comment on above: Order Comment: Speci men Type: BLOOD SPECIMEN Ordering Facility: [facility] Address: [address] [place] [address] Performed By: #### 5 7021-8 #### [facility] CLIA [id number] [address] [place] Nucleated RBC/100 WBC (Bld) [Ratio] 0.0 /100 WBC Normal [facility] Comment on above: Order Comment: Speci men Type: BLOOD SPECIMEN Ordering Facility: [facility] Address: [address] [place] [address] Performed By: #### 5 7021-8 #### [facility] CLIA [id number] [address] [place] Platelet mean volume (Bld) [Entitic vol] 8.3 fL Low 9.0-12.7 [facility] Comment on above: Order Comment: Rubio ayala Type: BLOOD SPECIMEN Ordering Facility: [facility] Address: [address] [place] [address] Performed By: #### 5 7021-8 #### [facility] CLIA [id number] [address] Platelets (Bld) [#/Vol] 333 10*3/uL Normal 150-400 [facility] Comment on above: Order Comment: Rubio ayala Type: BLOOD SPECIMEN Ordering Facility: [facility] Address: [address] [place] [address] Performed By: #### 5 7021-8 #### [facility] CLIA [id number] [address] RBC (Bld) [#/Vol] 4.44 10*6/uL Normal 3.90-5.20 [facility] Comment on above: Order Comment: Rubio ayala Type: BLOOD SPECIMEN Ordering Facility: [facility] Address: [address] [place] [address] Performed By: #### 5 7021-8 #### [facility] CLIA [id number] [address] WBC (Bld) [#/Vol] 7.69 10*3/uL Normal 3.70-11.00 [facility] Comment on above: Order Comment: Rubio ayala Type: BLOOD SPECIMEN Ordering Facility: [facility] Address: [address] [place] [address] Performed By: #### 5 7021-8 #### [facility] CLIA [id number] [address] [place] 12-30-2024 FEMIN Telephone (NSEN) SULLY PERDOMO ([id number]) 1955 F Date Time Provider Department 12/30/[address] [facility] During your visit today, we recorded the following information about you: Bonita Ramesh 12/30/2024 8:25 AM Addendum CV PHONE Name of caller : Sully Relationship to patient : Self If not self Will need patient permission to release results or disclose health information with called documented in fyi. Patient identified by Name and Date of . ( Sully Perdomo, 1955). Yes Number to return call [phone] Reason for Call: Symptoms Call: Symptoms: Left Eye Drooping more, Dizziness, Lightheaded, and left Blurry Vision different from needed glasses, tingling in eyelid Duration: 24-48 hours Progression: worse Pain level: 3 on a scale of 0-10. Type of pain (feels like): pressure Frequency: constant Location of pain: Left Eye Pharmacy: [facility] Patient diagnosed with an aneurysm. Patient is calling to report active symptoms. She is scheduled to see Dr. Lee Thursday as new consult but is having active symptoms with worsening drooling in eye lid, lightheaded and dizzy while sitting but worsen when standing. Patient reports seeing zigzags in front of left eye. Please [phone]. P.S Patient was asked if she contacted her PCP. She states PCP is not available. I CONFIRMED and updated patient's address in [place]. Thank you calling [facility] [place]. You will receive a return call within 48 hours ( or 2 business days if close to the weekend). If you feel that this is an urgent issue and needs immediate attention, it is recommended that you contact your primary care provider office or proceed to your nearest Urgent Care Center of Emergency Room ED for evaluation/treatment. Denita Vegas 12/30/2024 9:25 AM Signed Patient called back and was wondering why no one called her back, and I gave her the message below, she will go to the [place] ED. Allergies As of Date: 12/30/2024 Noted Allergy Reaction ESCITALOPRAM 12/16/2022 10 - Anaphylaxis LEVOFLOXACIN IN D5W 12/17/2016 7 - Swelling BUDESONIDE 11/04/2021 14 - Other: See Comments Comments: Other reaction(s): boils CODEINE 04/15/2006 Comments: chest pain PENICILLINS 04/15/2006 4 - Hives SULFA (SULFONAMIDE ANTIBIOTICS) 05/29/2022 10 - Anaphylaxis TETRACYCLINE 11/04/2021 11 - Vomiting Comments: Other reaction(s): Vomiting Date Reviewed: 04/16/2023 Reviewed by: Ellen Barakat PA-C - Fully Assessed Reason for Visit: Symptoms [3640] Prescriptions as of 12/30/2024 - omeprazole (PRILOSEC) 20 mg capsule take 1 capsule by mouth once daily ON AN EMPTY STOMACH AT LEAST 30 MINUTES BEFORE EATING - albuterol HFA (PROVENTIL HFA, VENTOLIN HFA) 90 mcg/actuation inhaler inhale 2 puffs by mouth and INTO THE LUNGS every 4 hours if needed for wheezing - amLODIPine (NORVASC) 10 mg tablet Take 1 tablet by mouth every afternoon. - cyclobenzaprine (FLEXERIL) 5 mg tablet 1 tablet as needed Orally 2 times a day for 30 days - acetaminophen (TYLENOL) 325 mg cap Take by mouth. - ibuprofen (ADVIL) 200 mg tablet Take 200 mg by mouth every 6 hours as needed. - cyanocobalamin (VITAMIN B-12) 100 mcg tab Take 100 mcg by mouth once daily. - COOKIE 180 MG TAB Take 1 by mouth each morning - FLONASE 50 MCG/ACTUATION NASAL SPRAY AEROSOL 2 sprays each nostril daily Meds Comments as of 05/29/2022: May 29, 2022 Denies new medications or medication changes within the last 30 days. Lizzie Ferrari RN Problem List As Of Date: 12/30/2024 (None) Encounter Status:Closed by DENITA VEGAS on 12/30/24 Normal [facility] CT BRAIN WO IVCONon 12-31-19 CT BRAIN WO IVCON * * *Final Report* * * DATE OF EXAM: Dec 30 2024 2:54PM [facility] 0504 - CT BRAIN WO IVCON / PROCEDURE REASON: Head trauma, moderate-severe * * * * Physician Interpretation * * * * EXAMINATION: CT BRAIN WO IVCON, CTA HEAD W IVCON, CTA NECK W IVCON HISTORY: Dizziness TECHNIQUE: Routine CT of the brain without IV contrast. Next, high resolution axial images were obtained through the head, neck and superior mediastinum following bolus administration of intravenous contrast for CT angiography. 3D maximum intensity projection images were created, reviewed and archived . MQ: CTABNPlus_4 Contrast: 100 mL Omnipaque [address] Radiation dose: Integrated Dose-Length Product (DLP) for this visit = 1185 mGy*cm. CT Dose Reduction Employed: Automated exposure control(AEC) and iterative recon COMPARISON: Outside CT 12/08/2024 RESULT: BRAIN: Acute change: No evidence of an acute infarct or other acute parenchymal process. ASPECT Score = 10 Hemorrhage: No evidence of acute intracranial hemorrhage. ECASS hemorrhagic transformation score: Not Applicable Mass Lesion / Mass Effect: There is no evidence of an intracranial mass or extra-axial fluid collection. No significant mass effect. Chronic change: None apparent. Parenchyma: There is mild generalized volume loss for age. The brain parenchyma is otherwise within normal limits for age. Ventricles: Ventricular enlargement concordant with the degree of parenchymal volume loss. Other: Paranasal sinus mucosal thickening. The skull and visualized extracranial soft tissues are grossly normal. NECK: Soft tissues: Enlarged right thyroid lobe with retroesophageal extension. No significant lymphadenopathy is seen. Spine: 3 mm anterolisthesis at C4-5 due to facet arthropathy.. Mild to moderate degenerative changes are present. Lung apices: Right upper lobe calcifications. Extensive centrilobular emphysema. CT ARTERIOGRAM: Extracranial Circulation: Aortic Arch: The aortic arch is out of [id number]. No dissection the cervical vertebral or carotid arteries. Carotid Stenosis: Right Common: No significant stenosis. Right Internal Carotid Plaque: Mild plaque formation. Right Internal Carotid Stenosis (% by NASCET Criteria): 10% Left Common: No significant stenosis. Left Internal Carotid Plaque: Mild plaque formation. Left Internal Carotid Stenosis (% by NASCET Criteria): 30% Cervical Vertebral Arteries: Patency: Bilateral Dominance: Left Intracranial Circulation: Anterior Circulation: There is atherosclerosis of the intracranial ICAs. Mild to moderate stenosis in bilateral parasellar ICA. The ACAs and MCAs are patent. No significant stenosis. 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 Vertebrobasilar Circulation: The intradural vertebral arteries are patent. The basilar artery is patent. pipe testing technician are patent. SCAs are patent. No significant stenosis. No aneurysm. The major dural sinuses and draining veins are patent. Pipe Coverer Helper (topogram) images: No additional findings. IMPRESSION: No acute intracranial findings. Motion degradation at the skull base on CTA. Bilateral proximal cervical ICA stenosis 10% on the right and 30% on the left. 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 Anesthesiology Technologist: PSCB Transcribe Date/Time: Dec 30 2024 3:03P Dictated by : MARTHA RODRIGUEZ MD This examination was interpreted and the report reviewed and electronically signed by: MARTHA RODRIGUEZ MD on Dec 30 2024 3:19PM EST [id number] Normal [facility] CTA HEAD W IVCONon CTA HEAD W IVCON * * *Final Report* * * DATE OF EXAM: Dec 30 2024 2:54PM [facility] 0022 - CTA HEAD W IVCON / PROCEDURE REASON: Headache, sudden, severe * * * * Physician Interpretation * * * * EXAMINATION: CT BRAIN WO IVCON, CTA HEAD W IVCON, CTA NECK W IVCON HISTORY: Dizziness TECHNIQUE: Routine CT of the brain without IV contrast. Next, high resolution axial images were obtained through the head, neck and superior mediastinum following bolus administration of intravenous contrast for CT angiography. 3D maximum intensity projection images were created, reviewed and archived . MQ: CTABNPlus_4 Contrast: 100 mL Omnipaque [address] Radiation dose: Integrated Dose-Length Product (DLP) for this visit = 1185 mGy*cm. CT Dose Reduction Employed: Automated exposure control(AEC) and iterative recon COMPARISON: Outside CT 12/08/2024 RESULT: BRAIN: Acute change: No evidence of an acute infarct or other acute parenchymal process. ASPECT Score = 10 Hemorrhage: No evidence of acute intracranial hemorrhage. ECASS hemorrhagic transformation score: Not Applicable Mass Lesion / Mass Effect: There is no evidence of an intracranial mass or extra-axial fluid collection. No significant mass effect. Chronic change: None apparent. Parenchyma: There is mild generalized volume loss for age. The brain parenchyma is otherwise within normal limits for age. Ventricles: Ventricular enlargement concordant with the degree of parenchymal volume loss. Other: Paranasal sinus mucosal thickening. The skull and visualized extracranial soft tissues are grossly normal. NECK: Soft tissues: Enlarged right thyroid lobe with retroesophageal extension. No significant lymphadenopathy is seen. Spine: 3 mm anterolisthesis at C4-5 due to facet arthropathy.. Mild to moderate degenerative changes are present. Lung apices: Right upper lobe calcifications. Extensive centrilobular emphysema. CT ARTERIOGRAM: Extracranial Circulation: Aortic Arch: The aortic arch is out of [id number]. No dissection the cervical vertebral or carotid arteries. Carotid Stenosis: Right Common: No significant stenosis. Right Internal Carotid Plaque: Mild plaque formation. Right Internal Carotid Stenosis (% by NASCET Criteria): 10% Left Common: No significant stenosis. Left Internal Carotid Plaque: Mild plaque formation. Left Internal Carotid Stenosis (% by NASCET Criteria): 30% Cervical Vertebral Arteries: Patency: Bilateral Dominance: Left Intracranial Circulation: Anterior Circulation: There is atherosclerosis of the intracranial ICAs. Mild to moderate stenosis in bilateral parasellar ICA. The ACAs and MCAs are patent. No significant stenosis. 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 Vertebrobasilar Circulation: The intradural vertebral arteries are patent. The basilar artery is patent. pipe testing technician are patent. SCAs are patent. No significant stenosis. No aneurysm. The major dural sinuses and draining veins are patent. Pipe Coverer Helper (topogram) images: No additional findings. IMPRESSION: No acute intracranial findings. Motion degradation at the skull base on CTA. Bilateral proximal cervical ICA stenosis 10% on the right and 30% on the left. 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 Anesthesiology Technologist: [facility] Transcribe Date/Time: Dec 30 2024 3:03P Dictated by : MARTHA RODRIGUEZ MD This examination was interpreted and the report reviewed and electronically signed by: MARTHA RODRIGUEZ MD on Dec 30 2024 3:19PM EST [id number] Normal [facility] CTA NECK W IVCONon CTA NECK W IVCON * * *Final Report* * * DATE OF EXAM: Dec 30 2024 2:54PM [facility] 0024 - CTA NECK W IVCON / PROCEDURE REASON: Headache, sudden, severe * * * * Physician Interpretation * * * * EXAMINATION: CT BRAIN WO IVCON, CTA HEAD W IVCON, CTA NECK W IVCON HISTORY: Dizziness TECHNIQUE: Routine CT of the brain without IV contrast. Next, high resolution axial images were obtained through the head, neck and superior mediastinum following bolus administration of intravenous contrast for CT angiography. 3D maximum intensity projection images were created, reviewed and archived . MQ: CTABNPlus_4 Contrast: 100 mL Omnipaque [address] Radiation dose: Integrated Dose-Length Product (DLP) for this visit = 1185 mGy*cm. CT Dose Reduction Employed: Automated exposure control(AEC) and iterative recon COMPARISON: Outside CT 12/08/2024 RESULT: BRAIN: Acute change: No evidence of an acute infarct or other acute parenchymal process. ASPECT Score = 10 Hemorrhage: No evidence of acute intracranial hemorrhage. ECASS hemorrhagic transformation score: Not Applicable Mass Lesion / Mass Effect: There is no evidence of an intracranial mass or extra-axial fluid collection. No significant mass effect. Chronic change: None apparent. Parenchyma: There is mild generalized volume loss for age. The brain parenchyma is otherwise within normal limits for age. Ventricles: Ventricular enlargement concordant with the degree of parenchymal volume loss. Other: Paranasal sinus mucosal thickening. The skull and visualized extracranial soft tissues are grossly normal. NECK: Soft tissues: Enlarged right thyroid lobe with retroesophageal extension. No significant lymphadenopathy is seen. Spine: 3 mm anterolisthesis at C4-5 due to facet arthropathy.. Mild to moderate degenerative changes are present. Lung apices: Right upper lobe calcifications. Extensive centrilobular emphysema. CT ARTERIOGRAM: Extracranial Circulation: Aortic Arch: The aortic arch is out of [id number]. No dissection the cervical vertebral or carotid arteries. Carotid Stenosis: Right Common: No significant stenosis. Right Internal Carotid Plaque: Mild plaque formation. Right Internal Carotid Stenosis (% by NASCET Criteria): 10% Left Common: No significant stenosis. Left Internal Carotid Plaque: Mild plaque formation. Left Internal Carotid Stenosis (% by NASCET Criteria): 30% Cervical Vertebral Arteries: Patency: Bilateral Dominance: Left Intracranial Circulation: Anterior Circulation: There is atherosclerosis of the intracranial ICAs. Mild to moderate stenosis in bilateral parasellar ICA. The ACAs and MCAs are patent. No significant stenosis. 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 Vertebrobasilar Circulation: The intradural vertebral arteries are patent. The basilar artery is patent. pipe testing technician are patent. SCAs are patent. No significant stenosis. No aneurysm. The major dural sinuses and draining veins are patent. Pipe Coverer Helper (topogram) images: No additional findings. IMPRESSION: No acute intracranial findings. Motion degradation at the skull base on CTA. Bilateral proximal cervical ICA stenosis 10% on the right and 30% on the left. 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 Anesthesiology Technologist: PSCB Transcribe Date/Time: Dec 30 2024 3:03P Dictated by : MARTHA RODRIGUEZ MD This examination was interpreted and the report reviewed and electronically signed by: MARTHA RODRIGUEZ MD on Dec 30 2024 3:19PM EST [id number] Normal [facility] ED NOTEon 12-30-2024 ED NOTE HNO ID: [id number] Author: TIMO FORRESTER RN Service: Emergency Medicine Author Type: Registered Nurse Type: ED Notes Filed: 12/30/2024 11:24 Note Text: CT called for at this time. 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 She presents to the emergency department after she developed left ptosis and lightheadedness. She contacted her die repairer trimmer dies who advised her to come here. She also states that she has been unsteady on her feet recently although she denies any focal weakness in the legs. She states that her right arm has been weak. The patient is a smoker. She denies any illicit drug use. She drinks alcohol socially, and she lives at home with her . She states that she is felt unsteady on her feet recently, but has not had any focal weakness nor the need to use a cane or a walker for support. She has a blood pressure 150/88 with a pulse rate of 75 and a respiratory rate of 23. She is afebrile with a room air pulse ox of 96%. Her skin is pink, warm, dry. Her pupils are equal reactive light accommodation at 4 mm. Extraocular motion is intact with no nystagmus. She has slight left ptosis with no erythema to the eyelid. The cranial nerves are otherwise intact. There is an S1-S2 with a regular rate and rhythm. There is no audible murmurs or bruits. Her lung valero are clear, and respirations are unlabored. Her abdomen is soft and nontender. She has some subjective numbness in the proximal left arm. Her motor strength in the upper and lower extremities are 5/5 with equal 2+ pulses and brisk capillary refill. She has no pronator drift. There is no other motor deficits in the extremities. Her EKG demonstrates a sinus rhythm with an incomplete right bundle branch block. There is no evidence of acute ischemic changes. Her CBC is within normal limits with a white blood cell count of 7.69, and her BMP has a glucose of 130. Her magnesium is 1.9. A urinalysis is pending. She will undergo CT imaging of the brain as well as a CTA of her head and neck. She is currently in stable condition. MORENA SANDOVAL 12/30/24 1136 Normal [facility] ED PROV NOTE HNO ID: [id number] Author: MORENA SANDOVAL MD Service: Emergency Medicine Author Type: Physician Type: ED Provider Notes Filed: 12/31/2024 07:28 Note Text: ED Provider Note Patient Name: Sully Perdomo : 1955 SERVICE DATE: 12/30/24 History Patient presents with: Sent By Md: Pt arrives ambulatory through triage for dizziness and L eyelid droop. Pt states that she was seen a few weeks ago by her ENT and dx with a brain aneurysm and referred to a specialist, has an apt scheduled for Thursday but was recommended to come here for the new sx. Pt has noticeable R eye droop. Pt denies hx of CVA, denies thinners. Pt endorses daily BP meds. Pt endorses pressure OSCAR. The patient is a 69-year-old female presenting to the emergency department for evaluation of left-sided eyelid droop and a sensation that the room is spinning. She tells me that she has been having the spinning sensation for the last several months. She has also been dealing with recurrent sinus infections. The patient's die repairer trimmer dies ordered MRI of the brain to evaluate for causes of dizziness. This demonstrated an anterior communicating artery aneurysm. The patient has scheduled appointment to see specialist for this on Thursday. The patient states that she went to bed at 1 PM yesterday. Before going to bed, she felt like she was at her neurological baseline over the last 4 months. Specifically, she the spinning sensation but no other deficits. She woke up around 8 PM with left eyelid droop and visual deficits on the left side. The patient spoke to her physician regarding her new deficits. Her physician recommended that she come into the emergency department for further evaluation. 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; followed by Automotive Internet Sales Manager PAST SURGICAL HISTORY Procedure Laterality Date APPENDECTOMY COLONOSCOPY SCREENING 10 years ago per patient SINUSOTOMY FRONTAL EXTERNAL SIMPLE 09/07/1998 Removal of sinus abscess FAMILY HISTORY Problem Relation Age of Onset Allergies Mother Allergic rhinitis Allergies Daughter Immunotherapy when younger for seasonal allergies Colon Cancer No Family History Social History Tobacco Use Smoking status: Every Day Current packs/day: 0.50 Average packs/day: 0.5 packs/day for 25.0 years (12.5 ttl pk-yrs) Types: Cigarettes Smokeless tobacco: Never Vaping Use Vaping status: Never Used Substance and Sexual Activity Alcohol use: Yes Drug use: Never Sexual activity: Not on file ALLERGIES Allergen Reactions Escitalopram Anaphylaxis Levofloxacin In D5w Swelling Budesonide Other: See Comments Other reaction(s): boils Codeine chest pain Penicillins Hives Sulfa (Sulfonamide * Anaphylaxis Tetracycline Vomiting Other reaction(s): Vomiting Review of Systems Constitutional: Negative for chills and fever. HENT: Negative for congestion, sinus pressure and sinus pain. Eyes: Negative for pain, redness and visual disturbance. Respiratory: Negative for cough and shortness of breath. Cardiovascular: Negative for chest pain, palpitations and leg swelling. Gastrointestinal: Negative for abdominal pain, nausea and vomiting. Genitourinary: Negative for dysuria and hematuria. Musculoskeletal: Negative for neck pain and neck stiffness. Neurological: Positive for dizziness, facial asymmetry and numbness. Negative for headaches. Physical Exam Vitals [12/30/24 1019] BP Pulse Temp Temp src Resp SpO2 Weight Height 150/88 (!) 95 37 ?C (98.6 ?F) Oral 18 95 % 52.2 kg (115 lb) 1.651 m (5' 5) Physical Exam Constitutional: General: She is not in acute distress. HENT: Head: Normocephalic and atraumatic. Right Ear: External ear normal. Left Ear: External ear normal. Nose: Nose normal. No congestion. Mouth/Throat: Mouth: Mucous membranes are moist. Pharynx: Oropharynx is clear. No oropharyngeal exudate. Eyes: General: No scleral icterus. Right eye: No discharge. Left eye: No discharge. Extraocular Movements: Extraocular movements intact. Pupils: Pupils are equal, round, and reactive to light. Cardiovascular: Rate and Rhythm: Normal rate and regular rhythm. Pulses: Normal pulses. Heart sounds: Normal heart sounds. Pulmonary: Effort: Pulmonary effort is normal. No respiratory distress. Breath sounds: No stridor. No wheezing, rhonchi or rales. Abdominal: General: Abdomen is flat. Tenderness: There is no abdominal tenderness. There is no guarding or rebound. Musculoskeletal: Cervical back: Normal range of motion and neck supple. Right lower leg: No edema. Left lower leg: No edema. Skin: Capillary Refill: Capillary refill takes less than 2 seconds. Neurological: Mental Status: She is alert. Comments: Slight left upper eyelid droop. Able to wrinkle foreh (more content not included)... Normal [facility] EKGon 12-30-2024 Electrocardiogram Ventricular Rate : 8 1 BPM Atrial Rate : 81 BPM P-R Interval : 142 ms QRS Duration : 100 ms Q-T Interval : 394 ms QTC Calculation(Bazett) : 457 ms Calculated P [place] : 64 degrees Calculated R [place] : 37 degrees Calculated T [place] : 69 degrees NORMAL SINUS RHYTHM INCOMPLETE RIGHT BUNDLE BRANCH BLOCK BORDERLINE ECG NO PREVIOUS ECGS AVAILABLE Confirmed by MD JAIME, MORENA ([id number]) on 12/30/2024 11:10:03 AM NAME : SULLY PERDOMO PID : [id number] : 1955 Gender : Female Race : ORD : Procedure Date : Dec 30 2024 10:19:27 Edit Date : Dec 30 2024 11:10:07 Diagnosis: NORMAL SINUS RHYTHM INCOMPLETE RIGHT BUNDLE BRANCH BLOCK BORDERLINE ECG NO PREVIOUS ECGS AVAILABLE Confirmed by MD SANDOVAL CAROL ([id number]) on 12/30/2024 11:10:03 AM Test Reason : Location : 4 : [facility] Overread By : MD SANDOVAL CAROL Edited By : MD SANDOVAL CAROL Referred By : , Acquired by : BO SOTO Normal [facility] Magnesium SerPl-mCncon 12-30 Magnesium [Mass/Vol] 1.9 mg/dL Normal 1.7-2.3 [facility] Comment on above: Order Comment: Speci men Type: BLOOD SPECIMEN Ordering Facility: [facility] Address: [address] [place] [address] Performed By: #### 2 4321-2, 27108-7 #### [facility] CLIA [id number] [address] OF [facility] Chest PA and Lateralon 12-19 Chest PA and Lateral [facility] Imaging Services [address] [place], [place] [id number] Chest PA and Lateral MR#: [id number] Acct: [id number] Name: SULLY PERDOMO STEPHAN Rep #: [id number] : 1955 F 69 From: Mirtha Knapp PCP: Dr. Jeremiah Martínez MD Status: REG CLI Study: Chest PA and Lateral Date of Exam: 12/19/24 Exam# [id number] Ordering Dr: Ana Gilman PAINT SPECIALIST PAINT SPECIALIST-C PROCEDURE: CHEST PA AND LATERAL 12/19/2024 REASON FOR EXAM: EVAL FOR RESOLUTION OF PNEUMOTHORAX TECHNIQUE: Frontal and lateral views of the chest. COMPARISON: PET-CT exam dated 10/18/2024 FINDINGS: There is no pneumothorax identified. The right lung appears to be expanded. There are multiple nodules in the right lung, some of which are calcified. These nodules are most compatible with granulomas. Lungs are hyperinflated with flattening of the hemidiaphragms. Bulla formation is identified in the upper lung valero. These findings are most compatible with COPD. There is no atelectasis, consolidation, effusion or pneumonic infiltrate. Diffuse osteopenia bony thorax is seen. There is a subtle dextroscoliosis of the thoracic spine. There is an increased kyphotic curvature of the thoracic spine. Mild degenerative changes of the thoracic are noted. There is a slight decrease in height of a couple of the lower thoracic vertebral bodies which may be related to osteoporotic compression fractures. The age of which is indeterminate. RAD/Chest PA and Lateral IMPRESSION: No pneumothorax is identified. Calcified granulomas in the right lung. COPD Diffuse osteopenia bony thorax. Increased kyphotic curvature and degenerative changes of the thoracic spine. Slight decrease in height 2 of the lower thoracic vertebral bodies by approximately 3-5%. This may be related to osteoporotic compression fractures. Subacute right rib fractures. Reading Location: [id number] CC: OLIVE Gilman; Dr. Jeremiah Martínez MD Anesthesiology Technologist: Signed Normal [facility] CT MAXILLOFACIAL WO IV CONTR Tao 12-10-2024 CT MAXILLOFACIAL WO IV CONTRAST Patient Name: SULLY PERDOMO : 1955 [id number] Exam Date/Time: 12/08/2024 08:27 Procedure: CT MAXILLOFACIAL WO IV CONTRAST Ordering Provider: MENESES JEFFREY Reason For Exam: SINUSITIS HISTORY: Chronic sinusitis Axial scans of the paranasal sinuses were performed with coronal and sagittal reconstructions. Dose reduction was employed with automated exposure control. The frontal, ethmoid, and sphenoid sinuses show scattered mild mucosal thickening with partial ethmoidectomies small retention cyst or polyp sphenoid sinus. There is no significant nasal septal deviation. Maxillary sinuses show moderate bilateral mucosal thickening with small retention cysts or polyps, bilateral nasal antral windows with prior turbinate resection on the right. Hyperostosis frontalis interna, calcified plaquing carotid siphons. IMPRESSION: 1. There is evidence of chronic sinusitis and prior FESS as discussed. Report Dictated on Electronically Signed By: Jorge L Landon MD Electronically Signed Date/Time: 12/10/2024 5:32 PM EDT Chronic congestion [employer] protocol Normal [facility] Pulmonary Visit Reporton Pulmonary Visit Report [facility] [address] [place] [address] OFFICE VISIT Date of Service: 11/08/24 MR#: [id number] Acct: [id number] Name: SULLY PERDOMO Rep #: [id number] : 1955 Provider: OLIVE Gilman Age/Sex: 69/F Location: [facility] Status: Signed Assessment and Plan Assessment and Plan (1) Daytime hypersomnia: Status: Acute Plan: I suspect obstructive sleep apnea/COPD overlap syndrome. Lengthy discussion about the pathophysiology of obstructive sleep apnea. We discussed the risks of untreated sleep apnea as well as the benefits. She is agreeable to an in lab polysomnogram. She is also agreeable to a titration study if indicated. Initial goal will be to wear PAP at least 4 hours nightly. Ultimately, it should be worn any time spent sleeping. I have encouraged the patient to call the office with any difficulties acclimating to PAP therapy. Follow up in the office in 3 months, at which time I anticipate the patient will be on PAP therapy for 4-6 weeks. (2) Mass of upper lobe of left lung: Status: Acute Plan: PET scan is technically negative for malignancy at this time. It did show some fractured ribs and and a small pneumothorax. The patient's primary care doctor repeated a chest x-ray last week, interpretation was available for me to read today. It was negative for pneumothorax. Given the pulmonary nodules and high risk for cancer with ongoing smoking, we will continue to monitor with serial imaging. Repeat diagnostic CT of the chest in 3 months. Return to the office afterwards to discuss test results. (3) Asthma-COPD overlap syndrome: Status: Chronic Plan: Deteriorated. She is currently being treated for a recurrent exacerbation by her primary care doctor. I instructed the patient that I do not believe that antibiotics and steroids are necessary at this time. I also told her that the best way to utilize antibiotics appropriately would be to obtain a sputum sample for culture and sensitivity. She was provided with a sputum cup today. After she has been off of antibiotics for 2 weeks she will contact the office and request an order for sputum sample. She was given specific instructions to write her name, date of , date of specimen and timing was obtained on the cup. She was also instructed to return to the lab within 2 hours of putting in the cup. She conveys understanding. She has essentially been dependent on prednisone. She would likely be a candidate for Dupixent for COPD. Unfortunately, she has not been off of prednisone for more than 6 weeks at a time, therefore I cannot obtain an eosinophil count yet. I would like to perform allergy testing and an eosinophil count before her next follow-up visit. Repeating a pulmonary function test to evaluate for disease progression and to see if the patient is appropriate for pulmonary rehab. Follow-up in the office in 3 months. Contact the office with any new or worsening symptoms in the meantime. Continue Trelegy. Added Daliresp. Continue Singulair. (4) Hypoxia: Status: Chronic Plan: She is using and benefiting from supple oxygen. She is titrating as needed to maintain saturations 89 to 92%. Orders: Orders Chest without Contrast 01/05/25 R91.1 - Solitary pulmonary nodule Polysomnography Today G47.10 - Hypersomnia, unspecified PFT Complete - DLCO, Spirometry b/a bronchodilators, lung volumes 11/22/24 J44.9 - Chronic obstructive pulmonary disease, unspecified Allergen, Mini-Rast 01/02/25 J44.9 - Chronic obstructive pulmonary disease, unspecified Aspergillus Antibodies 01/02/25 J44.9 - Chronic obstructive pulmonary disease, unspecified CBC W/Diff, Automated 01/02/25 J44.9 - Chronic obstructive pulmonary disease, unspecified Immunoglobulin E 01/02/25 J44.9 - Chronic obstructive pulmonary disease, unspecified ANCA 01/02/25 J44.9 - Chronic obstructive pulmonary disease, unspecified Medications: New roflumilast (Daliresp) 500 mcg PO DAILY 30 tabs 11RF R91.1 - Solitary pulmonary nodule HPI 4 WK FU/TEST RESULTS Chief Complaint: Test results HPI Comments Details: This patient presents to the office today to discuss recent test results. She is ambulatory, currently on supplemental oxygen. She is accompanied today by her daughter. She has not been seen in the ED or urgent care for any respiratory illness. She reports that her primary care doctor treated her with Doxycycline and a 5-day burst of steroids. She has 1 day remaining of the steroids. She has a follow-up visit with ear nose and throat doctor 2 days from now. She is compliant with use of Trelegy 1 puff daily. She does report rinsing her mouth out after each use. She denies any medication side effect such as sore throat or thrush. She is using ProAir maybe 2 times a day in between using the nebulizer. She d (more content not included)... Normal [facility] XR Chest 2 Viewson 1. No acute cardiopulmonary process. 2. Pulmonary hyperinflation. Report Dictated on Electronically Signed By: Mac Laws MD Electronically Signed Date/Time: 11/04/2024 9:59 AM EST [facility] Patient Name: SULLY PERDOMO : 1955 Exam Date/Time: 11/04/2024 08:07 Procedure: XR CHEST 2 VIEWS Ordering Provider: MARTÍNEZ RICHARD Reason For Exam: j93.9 s22.39xa CHEST X-RAY PA and lateral CLINICAL INDICATION: j93.9 s22.39xa PA and lateral radiographs of the chest were obtained. COMPARISON: May 23, 2024 FINDINGS: The cardiac silhouette is within normal limits. Pulmonary hyperinflation. Stable densities overlying the right upper lobe. Stable left apical scarring. No new opacification or consolidation is seen within the lungs. No pleural effusion or pneumothorax is identified. There are degenerative changes of the thoracic spine. [facility] Mac Laws MD - 11/04/2024 Patient Name: SULLY PERDOMO : 1955 Exam Date/Time: 11/04/2024 08:07 Procedure: XR CHEST 2 VIEWS Ordering Provider: MARTÍNEZ RICHARD Reason For Exam: j93.9 s22.39xa CHEST X-RAY PA and lateral CLINICAL INDICATION: j93.9 s22.39xa PA and lateral radiographs of the chest were obtained. COMPARISON: May 23, 2024 FINDINGS: The cardiac silhouette is within normal limits. Pulmonary hyperinflation. Stable densities overlying the right upper lobe. Stable left apical scarring. No new opacification or consolidation is seen within the lungs. No pleural effusion or pneumothorax is identified. There are degenerative changes of the thoracic spine. IMPRESSION: 1. No acute cardiopulmonary process. 2. Pulmonary hyperinflation. Report Dictated on Electronically Signed By: Mac Laws MD Electronically Signed Date/Time: 11/04/2024 9:59 AM EST [facility] [email or web address] Radiology Study observation (narrative) [employer] XR Chest 2 ViewsOrdered By: Mac Laws on 11-04-2024 [employer] Work Phone: PET/CT Tumor Base -Thigh Ini ton 10-18-2024 PET/CT Tumor Base -Thigh Init [facility] Imaging Services [address] [place] [address] PET/CT Tumor Base -Thigh Init MR#: [id number] Acct: [id number] Name: SULLY PERDOMO STEPHAN Rep #: [id number] : 1955 F 69 From: Jessica Ordaz MD PCP: Dr. Jeremiah Martínez MD Status: REG CLI Study: PET/CT Tumor Base -Thigh Init Date of Exam: Exam# [id number] Ordering Dr: Ana Gilman NP, NP-C ADDENDUM by Dr. Jessica Ordaz MD on 10/27/24 at 0758 The findings of pneumothorax and rib fractures were discussed with the nurse at Ana Gilman's office at 0754 EST on 10/27/2024. Reading Location: [id number] 10/27/24 075 Date cc: OLIVE Gilman; Dr. Jeremiah Martínez MD * Signed EXAM: PET-CT. CLINICAL HISTORY: 69-year-old female with a history of lung nodules for restaging. COMPARISON: PET-CT dated 12/22/2023. TECHNIQUE: Following a fast, 14.74 F-18 FDG was administered intravenously. PET images were obtained from the skull base through the mid thighs. Through this same anatomic region, CT images were obtained for attenuation correction purposes and anatomic localization. Blood glucose level at the time of FDG administration was 111 mg/dL. Dose reduction techniques include automated exposure control and/or adjustment of mA and/or kv according to patient size and or use of iterative reconstructive technique. FINDINGS: Neck: No suspicious FDG activity in the neck. Mildly increased uptake is associated with a facet joint in the lower right cervical spine, compatible with degenerative changes. There is spray artifact from dental amalgam. Debris is noted in the right maxillary sinus. The airway is patent. Lymph nodes are normal in size. The right thyroid gland is enlarged and heterogeneous, with a lobular portion extending into the mediastinum and posterior to the esophagus. Chest: There is no abnormal FDG activity associated with the calcified nodules in the right lung. The previously seen activity in the right upper lobe, up to max SUV of 0.8, is now 0.4 in remains below threshold for malignancy. A nodule in the posterior left lung apex measures 1 x 1.1 cm, also FDG non avid with a max SUV of 0.8. A nodular area of probable scarring at the right lung apex measures 1.2 x 0.8 cm and has no associated FDG activity. The background lungs are moderately emphysematous. Multiple calcified probable granulomata are seen in the right lung. New bilateral rib fractures are noted, with FDG activity associated with the right anterior 4th rib (max SUV 3.6 and the left anterior 7th rib (max SUV 3.3). There is a trace right pneumothorax. A small amount of gas is also seen in the intercostal region adjacent to the right 4th rib and in the PET minor muscle in the right side. No pleural effusion is seen. Abdomen and pelvis: No suspicious FDG activity in the abdomen or pelvis. Mild increase in activity over the greater trochanter of the left hip suggesting trochanteric bursitis. Liver, spleen, pancreas, gallbladder are normal. Aortoiliac atherosclerosis is seen. Bowel is normal in caliber. Moderate amount of stool in the colon. Kidneys, ureters, urinary bladder are normal. PET/PET/CT Tumor Base -Thigh Init IMPRESSION: NO ABNORMAL FDG ACTIVITY ASSOCIATED WITH THE 1 X 1.1 CM NODULE IN THE POSTERIOR ASPECT OF THE LEFT LUNG APEX. SHORT-TERM FOLLOW-UP CT IN 3-6 MONTHS IS SUGGESTED. BILATERAL SUBACUTE RIB FRACTURES ARE FDG AVID AND ASSOCIATED WITH A TRACE RIGHT APICAL PNEUMOTHORAX. Reading Location: [id number] CC: OLIVE Gilamn; Dr. Jeremiah Martínez MD Anesthesiology Technologist: Signed Normal [facility] BASIC METABOLIC PANELon 02-0 Anion gap [Moles/Vol] 8 mmol/L Normal 3-13 [facility] Comment on above: Performed By: #### L AB15, [id number] #### Payroll Representative: ANA HIGGINS ([phone]) [facility] DALEVICKI RITTMAN (SWRLAB) [address] [place] [address] [place] Calcium [Mass/Vol] 9.5 mg/dL Normal 8.8-10.0 [facility] Comment on above: Performed By: #### L AB15, [id number] #### Payroll Representative: ANA HIGGINS ([phone]) [facility] VICKI RITTMAN (SWRLAB) [address] [place] [address] Chloride [Moles/Vol] 102 mmol/L Normal 98-107 [facility] Comment on above: Performed By: #### L AB15, [id number] #### Payroll Representative: ANA HIGGINS ([phone]) [facility] (SWRLAB) [address] [place] [address] [place] CO2 [Moles/Vol] 27 mmol/L Normal 23-31 [facility] Comment on above: Performed By: #### L AB15, [id number] #### Payroll Representative: ANA HIGGINS ([phone]) [facility] DALEVICKI RITTMAN (SWRLAB) [address] [place] [address] [place] Creatinine [Mass/Vol] 0.72 mg/dL Normal 0.57-1.11 [facility] Comment on above: Performed By: #### L AB15, [id number] #### Payroll Representative: ANA HIGGINS ([phone]) [facility] V[facility] (SWRLAB) [address] [place] [address] GLOMERULAR FILTRATION RATE ML/MIN/1.73 SQ M.PREDICTED >90.0 Normal >60.0 [facility] Comment on above: Result Comment: Calc ulation based on the Chronic Kidney Disease Epidemiology Collaboration (CKD-EPI) equation refit without adjustment for race Performed By: #### L AB15, [id number] #### Payroll Representative: ANA HIGGINS ([phone]) [facility] COHEN RITTMAN (SWRLAB) [address] [place] [address] Glucose [Mass/Vol] 98 mg/dL Normal 82-115 [facility] Comment on above: Performed By: #### L AB15, [id number] #### Payroll Representative: ANA HIGGINS ([phone]) [facility] COHEN RITTMAN (SWRLAB) [address] [place] [address] [place] Potassium [Moles/Vol] 3.5 mmol/L Normal 3.5-5.1 [facility] Comment on above: Result Comment: [facility] potassium values may be up to 0.5 mmol/L lower than serum values. Performed By: #### L AB15, [id number] #### Payroll Representative: ANA HIGGINS ([phone]) [facility] COHEN RITTMAN (SWRLAB) [address] [place] [address] [place] Sodium [Moles/Vol] 137 mmol/L Normal 136-145 [facility] Comment on above: Performed By: #### L AB15, [id number] #### Payroll Representative: ANA HIGGINS ([phone]) [facility] DALEVICKI RITTMAN (SWRLAB) [address] [place] [address] Urea nitrogen [Mass/Vol] 11 mg/dL Normal 9-23 [facility] Comment on above: Performed By: #### L AB15, [id number] #### Payroll Representative: ANA HIGGINS ([phone]) [facility] DALEVICKI RITTMAN (SWRLAB) [address] [place] [address] [place] Anion gap [Moles/Vol] 4 mmol/L Normal 3-13 [facility] Comment on above: Performed By: #### L AB15, [id number] #### Payroll Representative: ANA HIGGINS ([phone]) [facility] DALEVICKI RITTMAN (SWRLAB) [address] [place] [address] [place] Calcium [Mass/Vol] 6.3 mg/dL Low 8.8-10.0 [facility] Comment on above: Performed By: #### L AB15, [id number] #### Payroll Representative: ANA HIGGINS ([phone]) [facility] COHEN RITTMAN (SWRLAB) [address] [place] [address] Chloride [Moles/Vol] 116 mmol/L High 98-107 [facility] Comment on above: Performed By: #### L AB15, [id number] #### Payroll Representative: ANA HIGGINS ([phone]) [facility] COHEN RITTMAN (SWRLAB) [address] [place] [address] CO2 [Moles/Vol] 20 mmol/L Low 23-31 [facility] Comment on above: Performed By: #### L AB15, [id number] #### Payroll Representative: ANA HIGGINS ([phone]) [facility] COHEN RITTMAN (SWRLAB) [address] [place] [address] Creatinine [Mass/Vol] 0.51 mg/dL Low 0.57-1.11 [facility] Comment on above: Performed By: #### L AB15, [id number] #### Payroll Representative: ANA HIGGINS ([phone]) [facility] COHEN RITTMAN (SWRLAB) [address] [place] [address] GLOMERULAR FILTRATION RATE ML/MIN/1.73 SQ M.PREDICTED >90.0 Normal >60.0 [facility] Comment on above: Result Comment: Calc ulation based on the Chronic Kidney Disease Epidemiology Collaboration (CKD-EPI) equation refit without adjustment for race Performed By: #### L AB15, [id number] #### Payroll Representative: ANA HIGGINS ([phone]) [facility] COHEN RITTMAN (SWRLAB) [address] [place] [address] [place] Glucose [Mass/Vol] 70 mg/dL Low 82-115 [facility] Comment on above: Performed By: #### L AB15, [id number] #### Payroll Representative: ANA HIGGINS ([phone]) [facility] COHEN RITTMAN (SWRLAB) [address] [place] [address] Potassium [Moles/Vol] 2.3 mmol/L Critically low 3.5-5.1 [facility] Comment on above: Result Comment: Plas ma potassium values may be up to 0.5 mmol/L lower than serum values. Performed By: #### L AB15, [id number] #### Payroll Representative: ANA HIGGINS ([phone]) [facility] CASTREJONTMAN (SWRLAB) [address] [place] [address] Sodium [Moles/Vol] 140 mmol/L Normal 136-145 [facility] Comment on above: Performed By: #### L AB15, [id number] #### Payroll Representative: ANA HIGGINS ([phone]) [facility] CASTREJONTMAN (SWRLAB) [address] [place] [address] Urea nitrogen [Mass/Vol] 9 mg/dL Normal 9-23 [facility] Comment on above: Performed By: #### L AB15, [id number] #### Payroll Representative: ANA HIGGINS ([phone]) [facility] CASTREJONTM[facility] (SWRLAB) [address] [place] [address] Basic metabolic 1998 panelon 10-14-2024 Anion gap [Moles/Vol] 8 mmol/L 3 - 13 mmol/L [facility] Calcium [Mass/Vol] 9.5 mg/dL 8.8 - 10. 0 mg/dL [facility] Chloride [Moles/Vol] 102 mmol/L 98 - 10 7 mmol/L [facility] CO2 [Moles/Vol] 27 mmol/L 23 - 31 mmol/L [facility] Creatinine [Mass/Vol] 0.72 mg/dL 0.57 - 1.11 mg/dL [facility] GFR/1.73 sq M.predicted (S/P/Bld) [Vol rate/Area] - PINF [facility] Comment on above: Calculation based on the Chronic Kidney Disease Epidemiology Collaboration (CKD-EPI) equation refit without adjustment for race Glucose [Mass/Vol] 98 mg/dL 82 - 115 mg/dL [facility] Interpretation and review of laboratory results Normal [facility] Potassium [Moles/Vol] 3.5 mmol/L 3.5 - 5.1 mmol/L [facility] Comment on above: Plasma potassium conrado ues may be up to 0.5 mmol/L lower than serum values. Sodium [Moles/Vol] 137 mmol/L 136 - 145 mmol/L [facility] Urea nitrogen [Mass/Vol] 11 mg/dL 9 - 23 mg/dL [facility] Basic metabolic 1998 panelOr dered By: Nicola Herrera on 10-14-2024 Anion gap [Moles/Vol] 4 mmol/L 3 - 13 mmol/L [facility] Calcium [Mass/Vol] 6.3 mg/dL Low 8.8 - 10. 0 mg/dL [facility] Chloride [Moles/Vol] 116 mmol/L High 98 - 10 7 mmol/L [facility] CO2 [Moles/Vol] 20 mmol/L Low 23 - 31 mmol/L [facility] Creatinine [Mass/Vol] 0.51 mg/dL Low 0.57 - 1.11 mg/dL [facility] GFR/1.73 sq M.predicted (S/P/Bld) [Vol rate/Area] - PINF [facility] Comment on above: Calculation based on the Chronic Kidney Disease Epidemiology Collaboration (CKD-EPI) equation refit without adjustment for race Glucose [Mass/Vol] 70 mg/dL Low 82 - 115 mg/dL [facility] Interpretation and review of laboratory results Abnormal [facility] Potassium [Moles/Vol] 2.3 mmol/L Critically low 3.5 - 5.1 mmol/L [facility] Comment on above: Plasma potassium conrado ues may be up to 0.5 mmol/L lower than serum values. Sodium [Moles/Vol] 140 mmol/L 136 - 145 mmol/L [facility] Urea nitrogen [Mass/Vol] 9 mg/dL 9 - 23 mg/dL [facility] COVID-19, Flu A/B, and RSV C omboon 10-14-2024 Interpretation and review of laboratory results Normal [facility] ED Nursing Noteon 10-14-2024 ED Nursing Note Patient ambulated to restroom. Normal [facility] ED Nursing Note Pateint to room 5 with c/o dizziness for three weeks. Patient reports she has tingling around her mouth and chin that started today. Patient reports fatigue, cough, chills, headache, muscle and joint pain for three weeks, however over the last three days symptoms have increased. V/S obtained, call light within reach. Patient finished an antibiotic this am. [facility] ED Provider Noteon ED Provider Note EMERGENCY DEPARTMENT ENCOUNTER Pt Name: Sully Perdomo Birthdate 1955 Date of evaluation: 10/14/2024 CHIEF COMPLAINT Chief Complaint Patient presents with Dizziness Facial Pain HISTORY OF PRESENT ILLNESS HPI Sully Perdomo is a 69 y.o. female who presents to the emergency department dizziness, feeling spacey. No blurred vision no double vision no focal weakness. She reports sinus congestion for 2 months cough with green sputum production for at least 3 weeks. Tinnitus. Postnasal drip. She has been on 2 antibiotics. No diarrhea. No fever. Reports perioral tingling. Chills. Myalgias arthralgias. She was recently started on lisinopril hydrochlorothiazide. REVIEW OF SYSTEMS Review of Systems Patient Active Problem List Diagnosis Abnormal nuclear stress test Hypertension Closed right hip fracture, initial encounter ([facility]) Closed 2-part intertrochanteric fracture of proximal end of right femur, initial encounter ([facility]) CURRENT MEDICATIONS Previous Medications ALBUTEROL (2.5 MG/3ML) 0.083% NEBULIZER SOLUTION albuterol sulfate 2.5 mg/3 mL (0.083 %) solution for nebulization ALBUTEROL 108 (90 BASE) MCG/ACT INHALER every 4 hours. ALENDRONATE (FOSAMAX) 70 MG TABLET 1 tablet 30 minutes before the first food, beverage or medicine of the day with plain water Orally Once a week for 84 ALPRAZOLAM (XANAX) 1 MG TABLET alprazolam 1 mg tablet AMLODIPINE (NORVASC) 10 MG TABLET Take 10 mg by mouth daily. AZITHROMYCIN (ZITHROMAX) 250 MG TABLET Every 24 hours. BUSPIRONE (BUSPAR) 10 MG TABLET CEFDINIR (OMNICEF) 300 MG CAPSULE Take 300 mg by mouth 2 times daily. CLARITHROMYCIN (BIAXIN) 500 MG TABLET clarithromycin 500 mg tablet CLINDAMYCIN (CLEOCIN) 150 MG CAPSULE take 1 capsule by mouth twice a day until finished CLONAZEPAM (KLONOPIN) 0.5 MG TABLET Take 0.5 mg by mouth Nightly. CYCLOBENZAPRINE (FLEXERIL) 5 MG TABLET every 12 hours. DOXYCYCLINE (VIBRA-TABS) 100 MG TABLET Take 100 mg by mouth 2 times daily. ESCITALOPRAM (LEXAPRO) 10 MG TABLET FLUTICASONE (FLONASE) 50 MCG/ACT NASAL SPRAY Administer 2 sprays into each nostril daily. Shake gently. Before first use, prime pump. After use, clean tip and replace cap. FLUTICASONE-UMECLIDIN -VILANT (TRELEGY ELLIPTA) 100-62.5-25 MCG/ACT AEROSOL POWDER 1 puff Every 24 hours. GUAIFENESIN (MUCINEX) 600 MG 12 HR TABLET Take 1 tablet by mouth every 12 hours as needed. HYDROCODONE-ACETAMINO PHEN (NORCO) 5-325 MG TABLET take 1 tablet by mouth every 4 to 6 hours WHILE AWAKE if needed for POST OP PAIN for 3 days HYDROXYZINE HCL (ATARAX) 25 MG TABLET take 3 tablets by mouth at bedtime if needed LISINOPRIL-HYDROCHLOR OTHIAZIDE 10-12.5 MG TABLET Take 1 tablet by mouth daily. LORATADINE (CLARITIN) 10 MG TABLET Take 1 tablet by mouth daily. MECLIZINE (ANTIVERT) 25 MG TABLET every 8 hours. MONTELUKAST (SINGULAIR) 10 MG TABLET Every 24 hours. OMEPRAZOLE (PRILOSEC) [address] CAPSULE take 1 capsule by mouth once daily ON AN EMPTY STOMACH AT LEAST 30 MINUTES BEFORE EATING OXYCODONE-ACETAMINOPH EN (PERCOCET) 5-325 MG TABLET take 1 tablet by mouth every 4 to 6 hours if needed FOR POST-OP PAIN WHILE AWAKE RAMELTEON (ROZEREM) 8 MG TABLET take 1/2 tablet by mouth at bedtime for 2 NIGHTS then take 1 tablet by mouth at bedtime TRAMADOL (ULTRAM) 50 MG TABLET take 1 tablet by mouth every 4 hours if needed TRAZODONE (DESYREL) 50 MG TABLET ALLERGIES Escitalopram, Levofloxacin, Levofloxacin in d5w, Sulfa antibiotics, Budesonide, Doxycycline, Codeine, Tetracycline, Trimethoprim, and Penicillins SOCIAL HISTORY Social History Tobacco Use Smoking status: Every Day Current packs/day: 1.00 Types: Cigarettes Smokeless tobacco: Never Substance Use Topics Alcohol use: Yes Drug use: Yes Types: Marijuana PHYSICAL EXAM Vitals: 10/14/24 0916 10/14/24 1130 BP: 131/72 (!) 142/76 Pulse: 86 74 Resp: 16 16 Temp: 36.8 ?C (98.3 ?F) TempSrc: Tympanic SpO2: 95% 95% Weight: 53.5 kg (118 lb) Height: 1.651 m (5' 5) Physical Exam Vitals and nursing note reviewed. Constitutional: Appearance: She is underweight. She is not toxic-appearing. HENT: Right Ear: Ear canal normal. No mastoid tenderness. Tympanic membrane is bulging. Tympanic membrane is not injected, scarred, perforated or erythematous. Left Ear: Tympanic membrane and ear canal normal. Eyes: Extraocular Movements: Extraocular movements intact. Conjunctiva/sclera: Conjunctivae normal. Pupils: Pupils are equal, round, and reactive to light. Cardiovascular: Rate and Rhythm: Normal rate and regular rhythm. Heart sounds: Normal heart sounds. Pulmonary: Effort: Pulmonary effort is normal. Breath sounds: Wheezing and rhonchi present. Musculoskeletal: Cervical back: Normal range of motion. Skin: General: Skin is warm. Coloration: Skin is not jaundiced. Neurological: Mental Status: She is alert. Comments: Patient is alert, oriented ?3, pupils a (more content not included)... Normal [facility] ESR (Bld) [Velocity]Ordered By: Jolanta Marks on 10-14-2024 Interpretation and review of laboratory results Normal [facility] - Chemistry and C hemistry - challengeon 10-14-2024 Magnesium [Mass/Vol] 1.7 mg/dL 1.6 - 2 .6 mg/dL [facility] - Hematology and Cell countsOrdered By: Jolanta Marks on 10-14-2024 ESR (Bld) [Velocity] 8 mm/h [facility] - Microbiology an d Antimicrobial susceptibilityon 10-14-2024 FLUAV RNA MARCO ANTONIO+probe Ql (Resp) Not detected Not Detected [facility] FLUBV RNA MARCO ANTONIO+probe Ql (Resp) Not detected Not Detected [facility] RSV RNA MARCO ANTONIO+probe Ql (Resp) Not detected Not Detected [facility] SARS-CoV-2 (COVID-19) RNA MARCO ANTONIO+probe Ql (Resp) Not detected Not Detected [facility] SARS-CoV-2 (COVID-19) RNA MARCO ANTONIO+probe Ql (Unsp spec) Methodology: real-time, RT-PCR The SARS-CoV-2, Flu A/B, and RSV Combo assay is intended for in vitro diagnostic use under the FDA Emergency Use Authorization (EUA). This test has not been FDA cleared or approved. In compliance with this authorization, please visit www.Clip.gov/media/884 435/download or www.Clip.gov/media/891 436/download to access the applicable information sheets. [facility] MAGNESIUMon 10-14-2024 Magnesium [Mass/Vol] 1.7 mg/dL Normal 1.6-2.6 [facility] Comment on above: Result Comment: ANNABELLE Cho COMMENTS: Higher values can be expected in females during menses. Performed By: #### L AB15, [id number] #### Payroll Representative: ANA HIGGINS ([phone]) [facility] ([facility]) [address] [place] [address] Magnesium [Mass/Vol]on 10-14 Interpretation and review of laboratory results Normal [facility] Higher values can be expected in females during menses. [facility] SARS-COV-2, FLU A/B, AND RSV COMBOon 10-14-2024 SARS-CoV-2 (COVID-19) RNA MARCO ANTONIO+probe Ql (Unsp spec) SARS-COV-2 Reference Not Detected Not Detected RESPIRATORY SYNCYTIAL VIRUS Reference Not Detected Not Detected INFLUENZA A (CEPHEID) Reference Not Detected Not Detected INFLUENZA B (CEPHEID) Reference Not Detected Not Detected ORDER COMMENTS: Methodology: real-time, RT-PCR The SARS-CoV-2, Flu A/B, and RSV Combo assay is intended for in vitro diagnostic use under the FDA Emergency Use Authorization (EUA). This test has not been FDA cleared or approved. In compliance with this authorization, please visit www.Clip.gov/media/715 435/download or www.Clip.gov/media/151 436/download to access the applicable information sheets. Normal [facility] Comment on above: Performed By: #### L AB15, [id number] #### Payroll Representative: ANA HIGGINS ([phone]) [facility] ([facility]) [address] [place] [address] SEDIMENTATION RATE, AUTOMATE Don 10-14-2024 SEDIMENTATION RATE, ERYTHROCYTE 8 mm/hr Normal 0-20 [facility] Comment on above: Performed By: #### L [id number] #### Payroll Representative: ANA HIGGINS ([phone]) [facility] ([facility]) [address] [place] [address] Pulmonary Visit Reporton Pulmonary Visit Report [facility] [place] [address] [place] [id number] OFFICE VISIT Date of Service: 09/30/24 MR#: [id number] Acct: [id number] Name: SULLY PERDOMO STEPHAN Rep #: [id number] : 1955 Provider: OLIVE Gilman Age/Sex: 69/F Location: [facility].PMW Status: Signed Assessment and Plan Assessment and Plan (1) Mass of upper lobe of left lung: Status: Acute Plan: Deteriorated. Nodule of concern has increased in size. Given the patient's high risk with ongoing smoking and unintentional weight loss (however it was over an extended period of time) I am going to proceed with evaluating this area with a pet scan. Patient will return to the office once PET scan results are available. We did discuss that if the PET scan is negative we will continue to monitor this with serial imaging. If the PET scan is positive we will discuss the risks and benefits of proceeding with a CT biopsy for tissue sample. The patient conveys understanding and is agreeable with this plan. (2) Asthma-COPD overlap syndrome: Status: Chronic Plan: Deteriorated. She appears to be in a continued exacerbation today. This patient has multiple antibiotic allergies which limits how I may treat her. I am going to place her on 10 days of doxycycline and a short prednisone burst. I am going to put her on a maintenance inhaler at this time, she was not previously utilizing or requiring a maintenance inhaler. Beginning with high-dose Trelegy. The patient was given personal instruction on how to utilize the Ellipta device. She was also instructed that she may continue to utilize ProAir and DuoNebs as needed, she may need them more frequently until the antibiotics and steroids have had time to kick in. She conveys understanding and is agreeable with this plan. (3) Hypoxia: Status: Chronic Plan: She is using and benefiting from supple oxygen. She is titrating as needed to maintain saturations 89 to 92%. 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 Unclear if this is related to her severe COPD or if this could be secondary to a malignant process. Orders: Orders PET/CT Tumor Base -Thigh Init Today R91.8 - Other nonspecific abnormal finding of lung field Medications: New fluticasone-umeclidin -vilanter 200-62.5-25 mcg (Trelegy Ellipta) 1 inh inhalation DAILY 60 ea 6RF doxycycline hyclate 100 mg PO BID 10 days 20 caps 0RF prednisone administer with food or milk 60 mg (3 x 20 mg) PO QDAY 5 days 15 tabs 0RF Changed From albuterol sulfate 90 mcg/actuation (ProAir HFA) 2 puffs inhalation Q6H PRN 8.5 grams 6RF shortness of breath or wheezing To albuterol sulfate 90 mcg/actuation 2 puffs inhalation Q6H PRN 8.5 grams 6RF shortness of breath or wheezing HPI 3-4 W F/U Test Results Chief Complaint: Test results HPI Comments Details: This patient presents to the office today to discuss recent test results. She is ambulatory, currently on supplemental oxygen. She has not been seen in the ED or urgent care for any respiratory illness. She reports that her primary care doctor treated her with Doxycycline a little over 2 weeks ago. No steroid was used. She is using ProAir 3 times in between using the nebulizer. She does utilize DuoNebs every 4-6 hours. She is also on Flonase. She is compliant with supplemental oxygen wearing 2 L/min continuous. She utilizes 3 L/min sleep. She reports that she checks her saturations occasionally at home. She continues to smoke cigarettes. She is currently smoking 3 cigarettes a day. She reports shortness of breath that is worse with exertion. She has yellow drainage from her nose with green chunks. She is also experiencing sinus pressure. Cough can be productive of white foamy pale yellow-colored sputum. She denies any hemoptysis. She is experiencing wheezing, and chest congestion, but denies any chest pain or palpitations. She denies any fever, chills or body aches. This patient has had a 40 pound weight loss over a long period of time, approximately 2 years. However, it was completely unintentional. She has not changed her diet or activity level. Test results personally viewed the patient: Echocardiogram completed on September 23, 2024. EF of 60%. Septal motion consistent with bundle branch block. Unable to estimate RVSP due to insufficient tricuspid regurgitant envelope. CT of the chest without contrast completed on September 23, 2024. Noted is hyperinflation with emphysematous changes. The previously seen nodule in the posterior aspect of the left upper lobe has increased in size and presently measures 8.6 mm. Stable appearance of nodular density in the right upper lobe. Correlation with PET scan is recommended for further evaluation. Intake (more content not included)... Normal [facility] Chest without Contraston Chest without Contrast [facility] Imaging Services [address] [place] [address] Chest without Contrast MR#: [id number] Acct: [id number] Name: SULLY PERDOMO STEPHAN Rep #: [id number] : 1955 F 69 From: Gavin shah MD PCP: Dr. Jeremiah Martínez MD Status: [facility] Study: Chest without Contrast Date of Exam: 09/23/24 Exam# [id number] Ordering Dr: Ana Gilman PAINT SPECIALIST PAINT SPECIALIST-C ADDENDUM by Dr. Gavin Srinivasan MD on 10/05/24 at 0746 ======== ADDENDUM ======== [id number] This is an addendum report. There is pulmonary emphysema. The presence of pulmonary emphysema on CT is an independent risk factor for lung cancer. Electronically Signed: Gavin Srinivasan MD at 7:46 EST , 10/05/2499 Date cc: OLIVE Gilman; Dr. Jeremiah Martínez MD * Signed ADDENDUM by Dr. Gavin Srinivasna MD on 10/05/[address]/Chest without Contrast IMPRESSION: undefined 10/05/243 Date cc: OLIVE Gilman; Dr. Jeremiah Martínez MD * Signed [id number] STUDY: CT CHEST WITHOUT CONTRAST REASON FOR EXAM: Female, 69 years old. New lung nodule 18 mm RADIATION DOSAGE (If Supplied By Facility): CTDIvol = ( 6.42 ) mGy, DLP = ( 240.62 ) mGycm TECHNIQUE: Transaxial imaging was performed without the administration of intravenous contrast material. Individualized dose optimization techniques were used for this CT. COMPARISON: Comparison is made with prior study dated June 07, 2024. FINDINGS: CHEST Hyperinflation and emphysematous changes worse in the upper lobes. The previously seen nodule in the posterior aspect of the left upper lobe has increased in size presently measuring 8.6 mm. Stable appearance of the nodular densities in the right upper lobe. There is no demonstrated pleural abnormality. There are calcifications of the coronary arteries. Normal mediastinum. Normal hilar regions. Normal unenhanced pulmonary arteries. There is atherosclerotic calcification of the aortic arch. Stable deformity of the L2 vertebra. Small sliding hiatal hernia. CT/Chest without Contrast IMPRESSION: Increased size of the previously seen nodule in the posterior aspect of the left upper lobe. Correlation with the PET scan recommended for further evaluation. Electronically Signed: Gavin Srinivasan MD at 12:51 EST , CC: OLIVE Gilman; Dr. Jeremiah Martínez MD Anesthesiology Technologist: Signed Normal [facility] Echo Completeon 09-23-2024 Echo Complete [facility] [address] [place] [address] Echo Complete 09/23/24 0808 MR#: [id number] Acct: [id number] Name: SULLY PERDOMO STEPHAN Rep #: [id number] : 1955 69 From: Vanessa Chowdhury MD Attending Dr: OLIVE Hinsd Status: RE G CLI Ordering Dr: Ana Gilman NP PAINT SPECIALIST-C Date: Location: CT Sex: F C Admitted: Reason For Study: SHORTNESS OF BREATH Procedure This was a 2D Doppler, Color Flow transthoracic echocardiogram. Exam performed in department. Left Ventricle Normal left ventricular thickness. The left ventricular ejection fraction is 60 %. Septal motion consistent with bundle branch block. Normal diastology for age. Right Ventricle Normal right ventricle. Atria The left and right atria are normal. Mitral Valve Trivial mitral valve insufficiency. Tricuspid Valve Trivial tricuspid valve insufficiency. Unable to estimate RV systolic pressure due to insufficient tricuspid regurgitant envelope. Aortic Valve There is no aortic stenosis. No aortic valve insufficiency. Pulmonic Valve The pulmonic valve is not well visualized. Great Vessels Normal sized aortic root. Pericardium/Pleural No pericardial effusion. MMode/2D Measurements Calculations LVIDd: 4.2 cm IVSd: 1.0 cm LVOT diam: 1.9 cm LVIDs: 2.9 cm LVPWd: 0.98 cm LVOT area: 2.8 cm2 RVDd: 3.3 cm FS: 31.0 % asc Aorta Diam: 3.0 cm LAV(MOD-bp): 14.9 ml LVAd ap4: 19.8 cm2 LAV(MOD-bp) Indexed: 9.3 ml/m2 LVLd ap4: 7.0 cm LAV(MOD-sp2): 15.1 ml EDV(MOD-sp4): 45.2 ml LAV(MOD-sp4): 15.4 ml EDV(sp4-el): 47.6 ml LVAs ap4: 10.9 cm2 LVLs ap4: 5.4 cm ESV(MOD-sp4): 17.7 ml ESV(sp4-el): 18.6 ml EF(MOD-sp4): 60.8 % EF(sp4-el): 60.9 % LVAd ap2: 14.8 cm2 SV(MOD-sp4): 27.5 ml SV(MOD-sp2): 16.8 ml LVLd ap2: 6.9 cm SI(MOD-sp4): 17.2 ml/m2 SI(MOD-sp2): 10.6 ml/m2 EDV(MOD-sp2): 26.9 ml EDV(sp2-el): 27.0 ml LVAs ap2: 8.2 cm2 LVLs ap2: 5.5 cm ESV(MOD-sp2): 10.1 ml ESV(sp2-el): 10.5 ml EF(MOD-sp2): 62.4 % SV(sp4-el): 29.0 ml Ao sinus diam: 3.[address] Junction: 2.8 cm LA dimension(2D): 2.8 cm LA A4 area: 8.3 cm2 RA A4 area: 10.4 cm2 TAPSE: 1.6 cm Time Measurements MV dec time: 0.32 sec Doppler Measurements Calculations MV E max ally: 59.1 cm/sec Lat Peak E' Ally: 10.7 cm/sec Med Peak E' Ally: 8.7 cm/sec MV A max ally: 74.8 cm/sec E/E' lat: 5.5 E/E' med: 6.8 MV E/A: 0.79 MV dec slope: 182.7 cm/sec2 Ao V2 max: 136.3 cm/sec LV V1 max: 117.6 cm/sec Ao max P.4 mmHg LV V1 max P.5 mmHg Ao V2 mean: 100.8 cm/sec LV V1 mean P.8 mmHg Ao mean P.4 mmHg LV V1 mean: 94.8 cm/sec Ao V2 VTI: 25.6 cm LV V1 VTI: 23.3 cm AV (velocity ratio): 0.91 ALEX(I,D): 2.5 cm2 ALEX(V,D): 2.4 cm2 SV(LVOT): 65.0 ml PA V2 max: 78.9 cm/sec ECHO/Echo Complete Interpretation Summary The left ventricular ejection fraction is 60 %. Ordering Physician: Ana Gilman Referring Physician: Ana Gilman Performed By: Rica Oropeza [facility] 09/23/24916 Date Vanessa Chodwhury MD CC: PAINT SPECIALIST-C Ana Gilman; Dr. Jeremiah Martínez MD Date Dictated: 09/23/24807 Date Transcribed: 09/23/24916 Anesthesiology Technologist: Signed Normal [facility] Pulmonary Visit Reporton Pulmonary Visit Report [facility] [place] [address] [place] [address] OFFICE VISIT Date of Service: 08/30/24 MR#: [id number] Acct: [id number] Name: SULLY PERDOMO STEPHAN Rep #: [id number] : 1955 Provider: OLIVE Gilman Age/Sex: 69/F Location: [facility].PMW Status: Signed Assessment and Plan Assessment and Plan (1) Mass of upper lobe of left lung: Status: Acute Plan: New 18 mm nodule. We will monitor with a short interval follow up by repeating a diagnostic CT chest in 3 months, due 09/07/24. Return to the office once test results are available to discuss and develop a plan. (2) Asthma-COPD overlap syndrome: Status: Chronic Plan: She does not appear to be an exacerbation of COPD today. No need for prednisone or antibiotic to be repeated. Continue current maintenance medication, if you recall, she is not able to tolerate steroids and is managed with DuoNebs. She reports boils when utilizing steroids. Tried and failed on Trelegy. No additional testing at this time. Contact the office for any new or worsening symptoms. An acute visit and typically be arranged within 1-2 days. Follow-up in 3 to 4 weeks. (3) Hypoxia: Status: Chronic Plan: Deteriorated. The patient reports that she has noticed she requires higher liter flow of supplemental oxygen. She even wakes up in the middle of the night and with a 2 L/min supplemental oxygen flow she finds her saturation to be 80%. I have asked her to increase to 3 L/min with sleep and we will perform a nocturnal oximetry on 3 L/min. She continues to use and benefit from supplemental oxygen, titrating as needed to maintain saturations 89 to 92%. This is new higher liter flow is from an unclear etiology. I am going to have the patient perform an echocardiogram for some further input. Follow-up in the office once test results are available. I am concerned about pulmonary hypertension secondary to her COPD. Orders: Orders Chest without Contrast 09/07/24 R91.8 - Other nonspecific abnormal finding of lung field Echo Complete W/ Contrast Today R06.02 - Shortness of breath, R09.02 - Hypoxemia Plan Details Follow Up: 3 Weeks (LMR) HPI 4 M FU Chief Complaint: Low oxygen levels HPI Comments Details: This patient presents to the office today to discuss recent test results. She is ambulatory, currently on supplemental oxygen. She has not been seen in the ED or urgent care for any respiratory illness. She reports that she completed antibiotics ordered by her primary care doctor 2 days ago. She is not currently on any maintenance inhalers. She does utilize DuoNebs every 4-6 hours. She is also on Flonase. She is compliant with supplemental oxygen wearing 2 to 2.5 L/min continuous. She utilizes 2 L/min sleep. She reports that she checks her saturations occasionally at home and finds them to typically be around 90% with 2 L/min on. However, she notes that recently she will wake up and feel short of breath checking her saturation and noting that it is only 80% while on her 2 L/min flow. She continues to smoke cigarettes. She is currently smoking about 2 cigarettes a day. She reports shortness of breath that is worse with exertion. She has a cough that she believes is related to postnasal drip. Cough can be productive of [id number]-[id number] sputum. She denies any hemoptysis. She denies any wheezing, chest tightness, chest pain or palpitations. She continues to have sinus pressure and drainage. She denies any fever, chills or body aches. Test results personally viewed the patient: CT scan of the chest completed on June 07, 2024. There is a new 18 mm pleural-based nodular density noted within the left lung apex likely representing inflammatory lesion. The fibronodular densities within the right upper lobe are stable. Stable extensive central lobar pulmonary emphysema. Walking oximetry completed on July 04, 2024. The patient was able to ambulate a total of 649 feet over the course of 6 minutes. She did not desaturate and does not currently work quire or qualify for supplemental oxygen. Intake Vital Signs 12/30/23 07:45 03/25/24 12:16 07/04/24 12:30 08/30/24 07:46 Height 5 ft 6.5 in 5 ft 6.5 in 5 ft 6 in 5 ft 6 in Weight: 119 lb 8 oz BMI 19.3 BP 166/77 H Blood Pressure Location Rt brachial Position Sitting Respiration 18 Pulse 76 Pulse Source Monitor Temp 97.6 F L Temperature Source Temporal Artery Pulse Oximetry (%) 95 Oxygen Delivery Method nasal canula Oxygen Flow Rate (L/min) 2 Intake Visit Reasons: 4 M FU Chief Complaint: nasal surgery DME Vendor: [employer] Accompanied by: Self Allergies budesonide Allergy (Intermediate, Verified 08/30/24 14:13) boils codeine Allergy (Verified 08/30/24 14:13) Heart Attack Sx (more content not included)... Normal [facility] 6 Minute Walk Teston 024 6 Minute Walk Test y [facility] Pulmonary Services/Neurology [address] [place] [address] MR#: [id number] Acct: [id number] Name: SULLY PERDOMO STEPHAN Rep #: [id number] : 1955 68 From: Dereck Abreu MD Referring Dr: Ana Gilman NP PAINT SPECIALIST-C Status: REG CLI Location: PSN Date: Sex: F C PSN 6 Minute Walk Test 6 Minute Walk Test 6 Minute Walk Test: 6 Minute Walk Test PSN:6-Minute Walk Test Start: 07/04/24 12:39 Freq: Status: Active Protocol: [id number].[id number] Document 07/04/24 12:30 AEH (Rec: 07/04/24 12:43 AEH [id number]) 6 Minute Walk Test Date Performed 07/04/24 Time Performed 12:30 Height 5 ft 6 in Weight: 53.524 kg Weight in Pounds 118.[address]: Olivia Assistive device used: None Pre-test Oxygen Delivery Method Room Air Pulse Ox (%) 94 Pulse Rate (60-100 beats/min) 81 Dyspnea Emily Scale (0-10) 0 Exertion Emily Scale (6-20) 6 1st minute Oxygen Delivery Method Room Air Pulse Rate (60-100 beats/min) 92 Dyspnea Emily Scale (0-10) 114 2nd minute Oxygen Delivery Method Room Air Pulse Ox (%) 90 Pulse Rate (60-100 beats/min) 117 H 3rd minute Oxygen Delivery Method Room Air Pulse Ox (%) 90 Pulse Rate (60-100 beats/min) 111 H 4th minute Oxygen Delivery Method Room Air Pulse Ox (%) 91 Pulse Rate (60-100 beats/min) 115 H 5th minute Oxygen Delivery Method Room Air Pulse Rate (60-100 beats/min) 90 Dyspnea Emily Scale (0-10) 115 6th minute Oxygen Delivery Method Room Air Pulse Ox (%) 90 Pulse Rate (60-100 beats/min) 115 H Dyspnea Emily Scale (0-10) 1 Exertion Emily Scale (6-20) 13 Post-test Oxygen Delivery Method Room Air Pulse Ox (%) 94 Pulse Rate (60-100 beats/min) 88 Full Laps Walked 11 Partial Lap, Number of Tiles Walked 0 Total Distance Walked (ft) 649 Interpretation Interpretation: The patient was able to ambulate 649 feet over the course of 6 minutes on room air with no assistive devices or breaks. The patient did have a significant desaturation from a baseline of 94% to as low as 90% with a concomitant increase in heart rate to 115 bpm. These findings are consistent with a respiratory limitation exercise tolerance. Recommendations Recommendations: No supplemental oxygen is indicated at this time. However, patient will need to be followed closely given level of desaturation. 07/08/241536 Date Dereck Abreu MD CC: Date Dictated: 07/08/241535 Date Transcribed: 07/08/241535 Anesthesiology Technologist: Dr. Dereck Abreu MD Signed Normal [facility] Chest without Contraston Chest without Contrast [facility] Imaging Services [address] [place] [id number] Chest without Contrast MR#: [id number] Acct: [id number] Name: SULLY PERDOMO STEPHAN Rep #: [id number] : 1955 F 68 From: Demetrio Telles MD PCP: Dr. Jeremiah Martínez MD Status: [facility] Study: Chest without Contrast Date of Exam: 06/07/24 Exam# [id number] Ordering Dr: Ana Gilman PAINT SPECIALIST PAINT SPECIALIST-C [id number] EXAM: CT CHEST WITHOUT INTRAVENOUS CONTRAST CLINICAL INDICATION: LUNG NODULE TECHNIQUE: Helically acquired images were obtained of the chest without intravenous contrast. This CT exam was performed using one or more of the following dose reduction techniques: automated exposure control, adjustment of the mA and/or kV according to patient size, and/or use of iterative reconstruction technique. COMPARISON: PET/CT scan 12/22/2023, CT Chest dated 11/20/2023 and 03/07/2024 FINDINGS: LUNGS AND PLEURAL SPACES: A new 18 mm pleural-based nodular density noted within the left lung apex likely representing inflammatory lesion. The fibronodular densities within the right upper lobe are stable. Stable extensive centrilobular pulmonary emphysema. No pneumothorax. HEART: Normal heart size. Prominent coronary artery calcification. MEDIASTINUM: Small sliding hiatal hernia. No mediastinal or hilar adenopathy. Esophagus is unremarkable. BONES/JOINTS: Healing right seventh rib fracture again noted. Stable chronic fracture deformity of the L2 vertebral body. VASCULATURE: No aortic aneurysm. CT/Chest without Contrast IMPRESSION: 1. New pleural-based 18 mm left apical nodular density likely inflammatory in nature. Short-term follow-up recommended. 2. Otherwise stable CT chest Electronically Signed: Demetrio Telles MD at 18:01 EDT , CC: OLIVE Gilman; Dr. Jeremiah Martínez MD Anesthesiology Technologist: Signed Normal [facility] XR Chest 2 Viewson 4 Hyperinflation of the lungs with coarsening of the interstitial lung markings, suggestive of a component of obstructive lung disease. No focal consolidation is identified. Report Dictated on Electronically Signed By: Rambo Samano MD Electronically Signed Date/Time: 05/23/2024 12:54 PM EDT [facility] Patient Name: SULLY [facility]DOMO : 1955 [id number] Exam Date/Time: 05/23/2024 09:02 Procedure: XR CHEST 2 VIEWS Ordering Provider: MARTÍNEZ RICHARD Reason For Exam: H66.92 CHEST X-RAY PA/LATERAL CLINICAL INDICATION: Shortness of breath and cough Frontal and lateral plain films of the chest were obtained. COMPARISON: 06/24/2023 FINDINGS: The cardiac silhouette is within normal limits. The lungs are hyperinflated. Coarsening of the interstitial lung markings is noted, likely chronic. Calcified nodular densities predominantly at the right lung apex appear unchanged. No focal consolidation is seen within the lungs. No pleural effusion or pneumothorax is identified. There are degenerative changes of the thoracic spine. [facility] Rambo Samano MD - 05/23/2024 Patient Name: SULLY PERDOMO : 1955 Exam Date/Time: 05/23/2024 09:02 Procedure: XR CHEST 2 VIEWS Ordering Provider: MARTÍNEZ RICHARD Reason For Exam: H66.92 CHEST X-RAY PA/LATERAL CLINICAL INDICATION: Shortness of breath and cough Frontal and lateral plain films of the chest were obtained. COMPARISON: 06/24/2023 FINDINGS: The cardiac silhouette is within normal limits. The lungs are hyperinflated. Coarsening of the interstitial lung markings is noted, likely chronic. Calcified nodular densities predominantly at the right lung apex appear unchanged. No focal consolidation is seen within the lungs. No pleural effusion or pneumothorax is identified. There are degenerative changes of the thoracic spine. IMPRESSION: Hyperinflation of the lungs with coarsening of the interstitial lung markings, suggestive of a component of obstructive lung disease. No focal consolidation is identified. Report Dictated on Electronically Signed By: Rambo Samano MD Electronically Signed Date/Time: 05/23/2024 12:54 PM EDT [facility] Radiology Study observation (narrative) [facility] XR Chest 2 ViewsOrdered By: Rambo Samano on 05-23-2024 [facility] MR Brain WO and W contrast I Von 05-13-2024 No acute intracranial abnormality or abnormal intracranial enhancement. Significant interval change in appearance of the brain since prior MRI of 11/09/2023. No significant interval change in appearance of the paranasal sinuses since prior MRI. Report Dictated on Electronically Signed By: Jack Navarro MD Electronically Signed Date/Time: 05/13/2024 11:38 AM EDT [facility] Patient Name: SULLY PERDOMO : 1955 Exam Date/Time: 05/13/2024 09:22 Procedure: MR BRAIN W AND WO CONTRAST Ordering Provider: MARTÍNEZ RICHARD Reason For Exam: r94.8 EXAMINATION: MR BRAIN W AND WO CONTRAST HISTORY: Headaches. TECHNIQUE: Multiplanar, multisequence MRI of the brain was performed without and with intravenous gadolinium contrast. Contrast: 5.6mL Gadavist IV COMPARISON: Brain MRI 11/09/2023 RESULT: Acute Change: There is no evidence of restricted diffusion to suggest an acute infarct. Hemorrhage: No evidence of prior parenchymal hemorrhage on the SWAN images. Mass Lesion/ Mass Effect: No evidence of an intracranial mass or extra-axial fluid collection. No abnormal parenchymal or leptomeningeal enhancement is noted following contrast administration. No significant mass effect. Chronic Change: Scattered punctate foci of increased T2 and FLAIR signal are noted in the supratentorial white matter which is a nonspecific finding, but likely represents minimal chronic microvascular ischemia. Parenchyma: No significant volume loss for age. The brain parenchyma is otherwise within normal limits of signal intensity and morphology. Ventricles: Normal caliber and morphology. Skull Base: Hypothalamic and pituitary region are grossly normal. Craniocervical junction is normal. No significant marrow replacement process. Vasculature: Major intracranial arterial structures, and dural venous sinuses show typical flow void, suggesting patency by spin echo criteria. Other: Polypoid mucosal thickening of the left maxillary sinus, similar to prior exam. Mild mucosal thickening of the right maxillary sinus with frothy secretions and mucous retention cyst/polyps.. Mild frothy secretions in the right maxillary sinus. Findings have not significantly changed from prior exam. Postoperative changes suggestive of bilateral maxillary antrostomies and partial ethmoidectomies. Mucosal thickening/mucous chest cyst or polyp of the right frontal sinus, unchanged.. Bilateral lens replacement. The orbits and extracranial soft tissues are unremarkable. [facility] Jack Navarro MD - 05/13/2024 Patient Name: SULLY PEDROMO : 1955 Exam Date/Time: 05/13/2024 09:22 Procedure: MR BRAIN W AND WO CONTRAST Ordering Provider: MARTÍNEZ RICHARD Reason For Exam: r94.8 EXAMINATION: MR BRAIN W AND WO CONTRAST HISTORY: Headaches. TECHNIQUE: Multiplanar, multisequence MRI of the brain was performed without and with intravenous gadolinium contrast. Contrast: 5.6mL Gadavist IV COMPARISON: Brain MRI 11/09/2023 RESULT: Acute Change: There is no evidence of restricted diffusion to suggest an acute infarct. Hemorrhage: No evidence of prior parenchymal hemorrhage on the SWAN images. Mass Lesion/ Mass Effect: No evidence of an intracranial mass or extra-axial fluid collection. No abnormal parenchymal or leptomeningeal enhancement is noted following contrast administration. No significant mass effect. Chronic Change: Scattered punctate foci of increased T2 and FLAIR signal are noted in the supratentorial white matter which is a nonspecific finding, but likely represents minimal chronic microvascular ischemia. Parenchyma: No significant volume loss for age. The brain parenchyma is otherwise within normal limits of signal intensity and morphology. Ventricles: Normal caliber and morphology. Skull Base: Hypothalamic and pituitary region are grossly normal. Craniocervical junction is normal. No significant marrow replacement process. Vasculature: Major intracranial arterial structures, and dural venous sinuses show typical flow void, suggesting patency by spin echo criteria. Other: Polypoid mucosal thickening of the left maxillary sinus, similar to prior exam. Mild mucosal thickening of the right maxillary sinus with frothy secretions and mucous retention cyst/polyps.. Mild frothy secretions in the right maxillary sinus. Findings have not significantly changed from prior exam. Postoperative changes suggestive of bilateral maxillary antrostomies and partial ethmoidectomies. Mucosal thickening/mucous chest cyst or polyp of the right frontal sinus, unchanged.. Bilateral lens replacement. The orbits and extracranial soft tissues are unremarkable. IMPRESSION: No acute intracranial abnormality or abnormal intracranial enhancement. Significant interval change in appearance of the brain since prior MRI of 11/09/2023. No significant interval change in appearance of the paranasal sinuses since prior MRI. Report Dictated on Electronically Signed By: Jack Navarro MD Electronically Signed Date/Time: 05/13/2024 11:38 AM EDT [facility] Addendum by Chacha Navarro MD on 06/07/2024 9:37 AM EDT Patient Name: SULLY PERDOMO : 1955 [id number] Exam Date/Time: 05/13/2024 09:22 Procedure: MR BRAIN W AND WO CONTRAST Ordering Provider: MARTÍNEZ RICHARD Reason For Exam: r94.8 --------ADDENDUM #1 -------- Transcriptional error in the impression of the report. The word no was omitted. The impression should read: No acute intracranial abnormality or abnormal intracranial enhancement. No significant interval change in appearance of the brain since prior MRI of 11/09/2023. No significant interval change in appearance of the paranasal sinuses since prior MRI. Report Dictated on Electronically Signed By: Jack Navarro MD Electronically Signed Date/Time: 06/07/2024 9:37 AM EDT --------ORIGINAL REPORT -------- EXAMINATION: MR BRAIN W AND WO CONTRAST HISTORY: Headaches. TECHNIQUE: Multiplanar, multisequence MRI of the brain was performed without and with intravenous gadolinium contrast. Contrast: 5.6mL Gadavist IV COMPARISON: Brain MRI 11/09/2023 RESULT: Acute Change: There is no evidence of restricted diffusion to suggest an acute infarct. Hemorrhage: No evidence of prior parenchymal hemorrhage on the SWAN images. Mass Lesion/ Mass Effect: No evidence of an intracranial mass or extra-axial fluid collection. No abnormal parenchymal or leptomeningeal enhancement is noted following contrast administration. No significant mass effect. Chronic Change: Scattered punctate foci of increased T2 and FLAIR signal are noted in the supratentorial white matter which is a nonspecific finding, but likely represents minimal chronic microvascular ischemia. Parenchyma: No significant volume loss for age. The brain parenchyma is otherwise within normal limits of signal intensity and morphology. Ventricles: Normal caliber and morphology. Skull Base: Hypothalamic and pituitary region are grossly normal. Craniocervical junction is normal. No significant marrow replacement process. Vasculature: Major intracranial arterial structures, and dural venous sinuses show typical flow void, suggesting patency by spin echo criteria. Other: Polypoid mucosal thickening of the left maxillary sinus, similar to prior exam. Mild mucosal thickening of the right maxillary sinus with frothy secretions and mucous retention cyst/polyps.. Mild frothy secretions in the right maxillary sinus. Findings have not significantly changed from prior exam. Postoperative changes suggestive of bilateral maxillary antrostomies and partial ethmoidectomies. Mucosal thickening/mucous chest cyst or polyp of the right frontal sinus, unchanged.. Bilateral lens replacement. The orbits and extracranial soft tissues are unremarkable. IMPRESSION: No acute intracranial abnormality or abnormal intracranial enhancement. Significant interval change in appearance of the brain since prior MRI of 11/09/2023. No significant interval change in appearance of the paranasal sinuses since prior MRI. Report Dictated on Electronically Signed By: Jack Navarro MD Electronically Signed Date/Time: 05/13/2024 11:38 AM EDT [facility] Radiology Study observation (narrative) [facility] [email or web address] MR Brain WO and W contrast I VOrdered By: Jack Navarro on 05-13-2024 [employer] Work Phone: Pulmonary Visit Reporton Pulmonary Visit Report [facility] [address] [place] [address] OFFICE VISIT Date of Service: 03/25/24 MR#: [id number] Acct: [id number] Name: SULLY PERDOMO STEPHAN Rep #: [id number] : 1955 Provider: OLIVE Gilman Age/Sex: 68/F Location: [facility].PM[facility] Status: Signed Assessment and Plan Assessment and Plan (1) Mass of upper lobe of left lung: Status: Acute Plan: Recent chest imaging indicates possible improvement. However, the patient is at high risk for malignancy. Repeating a CT of the chest in 3 months to evaluate for improvement versus complete resolution. (2) Asthma-COPD overlap syndrome: Status: Chronic Plan: Deteriorated. She appears to be in exacerbation today. Unfortunately, she is allergic to several antibiotics. Symptoms are mainly sinus congestion. Therefore, I am going to defer antibiotic management to her rn research who she is established with. I am going to place her on a prednisone taper, this will help with symptoms in the meantime. Escalating to triple therapy maintenance inhaler. Follow-up in the office in July. (3) Hypoxia: Status: Chronic Plan: Walking oximetry performed in the office today indicates that the patient has required 2 L/min of supplemental oxygen on exertion. See vital signs documented. We will set the patient up with home concentrator, portable tanks and a portable oxygen concentrator. This is a chronic condition. Orders: Orders Walking Oximetry Today R09.02 - Hypoxemia Chest without Contrast 06/07/24 R91.8 - Other nonspecific abnormal finding of lung field Medications: New prednisone take 4 tabs for three days, then 3 tabs for three days, then 2 tabs for three days, then 1 tab for 3 days 10 mg PO QDAY 30 tabs 0RF R91.8 - Other nonspecific abnormal finding of lung field fluticasone-umeclidin -vilanter 200-62.5-25 mcg (Trelegy Ellipta) 1 inh inhalation DAILY 60 ea 6RF R91.8 - Other nonspecific abnormal finding of lung field Plan Details Follow Up: 07/08/24 ([facility]) HPI O2 dropping Chief Complaint: Shortness of breath HPI Comments Details: This patient presents to the office today to discuss recent test results. She is ambulatory, currently on room air. She has not been seen in the ED or urgent care for any respiratory illness. She has not required any antibiotics or prednisone for any breathing problems. She is not currently on any maintenance inhalers. She does utilize DuoNebs every 4-6 hours. She reports feeling as though she is experiencing a sinus infection. She has sinus congestion and pressure. She is also on Flonase. She reports new shortness of breath that is worse with exertion. She denies any cough, sputum production or hemoptysis. She denies any wheezing, chest tightness, chest pain or palpitations. She has having sinus pressure and drainage. She denies any fever, chills or body aches. Test results personally viewed the patient: CT scan completed on 03/07/2024. Left upper lobe lesion almost resolved. Suggests postinflammatory. Intake Vital Signs 12/30/23 07:45 03/25/24 12:16 03/25/24 13:20 03/25/24 13:21 03/25/24 13:22 03/25/24 13:23 03/25/24 13:24 03/25/24 13:25 03/25/24 13:26 03/25/24 13:27 Height 5 ft 6.5 in 5 ft 6.5 in Weight: 122 lb 118 lb BMI 19.3 18.7 BP 146/83 H 168/79 H Blood Pressure Location Lt brachial Lt brachial Position Sitting Sitting Respiration 18 Pulse 80 87 100 108 H 104 H 100 93 108 H 108 H Pulse Source Monitor Monitor Monitor Monitor Monitor Monitor Monitor Monitor Monitor Monito r Temp 98.5 F 97.7 F L Temperature Source Temporal Artery Temporal Artery Pulse Oximetry (%) 91 91 91 93 90 87 88 90 90 Oxygen Delivery Method room air room air room air room air room air room air nasal canula dotty al canula nasal canula nasal canula Oxygen Flow Rate (L/min) 2 2 2 Comment resting MIN 1 MIN2 MIN 3 MIN 4 MIN 5 MIN 6 Resting after walk Intake Visit Reasons: O2 dropping Chief Complaint: nasal surgery 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: No Accompanied by: Self Is patient in pain?: No Allergies budesonide Allergy (Intermediate, Verified 03/25/24 13:15) boils codeine Allergy (Verified 03/25/24 13:15) Heart Attack Sx levofloxacin (From Levaquin) Allergy (Verified 03/25/24 13:15) Anaphylaxis Penicillins (PCN) Allergy (Verified 03/25/24 13:15) Hives sulfamethoxazole (From Bactrim) Allergy (Verified 03/25/24 13:15) Anaphylaxis tetracycline Allergy (Verified 03/25/24 13:15) Vomiting trimethoprim (From Bactrim) Allergy (Verified 03/25/24 13:15) Anaphylaxis Medications ???Medication ???Instructions ???Recorded ???Confirmed ???Type albuterol sulfate 2.5 mg/3 mL 2.5 mg inhalation Q6HWA.RT COPD 10/23/20 03/25/24 History (0.083 %) solution for (more content not included)... Normal [facility] Chest without Contraston Chest without Contrast [facility] Imaging Services [address], [place] [address] Chest without Contrast MR#: [id number] Acct: [id number] Name: SULLY PERDOMO STEPHAN Rep #: [id number] : 1955 F 68 From: Arthur Haines PCP: Dr. Jeremiah Martínez MD Status: REG CLI Study: Chest without Contrast Date of Exam: 03/07/24 Exam# [id number] Ordering Dr: Ana Gilman PAINT SPECIALIST PAINT SPECIALIST-C [id number] INDICATION: LUNG MASS EXAMINATION: CT CHEST WITHOUT CONTRAST - CT Chest W/O Contrast Injection TECHNIQUE: Helically acquired images were obtained of the chest. The protocol utilizes one or more of the following dose reduction techniques: automated exposure control, adjustment of mA and/or kV according to patient size,and/or use of iterative reconstruction technique. IV Contrast dosage and agent: None. RADIATION DOSAGE (If Supplied By Facility): CTDIvol = ( 6.70 ) mGy, DLP = ( 247.84 ) mGycm COMPARISON: Prior study dated: 11/20/2023 FINDINGS: LUNGS, PLEURA AND LARGE AIRWAYS: Previously noted 8 x 5 mm irregular left severe emphysematous changes are again seen. Fibrotic changes and calcified granulomas are again seen in the right upper lobe. Upper lobe density has markedly decreased and almost resolved. No pleural effusion or thickening. No pneumothorax. THYROID: No thyroid lesions. HEART AND PERICARDIUM: Heart size is normal. No pericardial effusion. CORONARY ARTERIES: Coronary artery calcification is seen. VESSELS: Thoracic aorta is not dilated. MEDIASTINUM AND NATE: No mediastinal or hilar adenopathy. Esophagus is unremarkable. No hiatal hernia. UPPER ABDOMEN: No acute pathology. BONES: Unchanged osseous structures. CT/Chest without Contrast IMPRESSION: 1. Left upper lobe lesion almost resolved likely inflammatory. 2. Otherwise, no significant change is previous exam. 3. Severe emphysematous changes. 4. Chronic changes in the right upper lobe. Electronically Signed: Arthur Alvarez MD at 12:00 EDT , CC: OLIVE Gilman; Dr. Jeremiah Martínez MD Anesthesiology Technologist: Signed Normal [facility] Office Visiton 01-21-2024 Follow-up visit [id number] Sully Perdomo 1955 F Date Provider Department Center 01/21/2024 [id number] RUIZ [facility] None Family History Problem Relation Age of Onset Coronary artery disease Paternal Grandmother Coronary artery disease Paternal Grandfather Heart attack Father Family Status - Relation Status Age at Paternal Grandmother Paternal Grandfather Father Level of Service:[id number] [facility] OFFICE/OUTPATIENT NEW LOW MDM 30 MINUTES Reason for Visit and Comments: New Patient [[id number]] - Sinus polyp Normal [facility] PATINSon 01-21-2024 PATINS Things you can do to keep your nose healthy: Start Flonase/ Fluticasone (or other nasal steroid spray such as Nasonex, Nasocort, Rhinocort) - 2 sprays to each nostril 1 time per day. It will take 3-4 weeks of consistent daily use before you will notice a benefit. When spraying in left nostril, point towards left eye. When spraying in right nostril, point towards right eye to aim for inferior turbinates. Pointing toward the septum in the middle can cause bloody noses. Consider NeilMed saline rinses 1-2 times per day, especially if you have seasonal allergies or you feel a cold starting. If you can't tolerate rinses, then you can try nasal saline spray/mist 1-3 times per day. Both of these are over the counter and widely available. If the nose is dry, you can use a dab of Vaseline/Aquaphor or saline gel inside both nostrils every night and/or a humidifier in your bedroom at night, especially during the winter Avoid excessive use of nasal decongestants (oxymetazoline, Afrin, Prabhu-Synephrine, phenylephrine). These are meant to be used for 3-5 days during an infection or allergy flare. You can also try over the counter allergy medications such as Claritin/Loratadine, Zyrtec/Cetirizine, or Cookie/Fexofenadine as needed for uncontrolled nasal congestion, runny nose, sneezing, itchy/watery eyes. These are safe for snf use. How to Irrigate the nose Fill the Neti pot / NeilMed Sinus Rinse / syringe with the room temperature or slightly warm saline solution (recipe below). Gently insert the tip into one nostril and squeeze. Keep your head down and forward to prevent water from going into your throat. Do not sniff in the irrigation, just spray it in. Use one half of the bottle per nostril. Do this for 1-2 times per day. A good place to do this is in the shower, especially when first starting irrigations. At home Nasal Irrigation Solution Recipe (or you can use the [employer] Sinus Rinse? solution packets) 8 ounces of room temperature distilled water. (If you use tap water, boil it first to sanitize and then let it cool) ? teaspoon table salt ? teaspoon baking soda Indoor allergen reduction tips Minimize carpet, curtains, upholstered furniture Vacuum at least once weekly Consider hypoallergenic/ dust mite sheets and pillow cases. Wash sheets once weekly in hot water to kill dust mites. Consider an air purifier/ HEPA filter Normal [facility] Progress Noteon 01-21-2024 Progress Note [facility] [address], [address] [facility] [address] Dept phone: [phone] Sully Perdomo [id number] Assessment and Recommendations 1. Chronic pansinusitis Nasal endoscopy today - Mild inferior turbinate hypertrophy. Septum essentially midline. Widely patent maxillary antrostomies and ethmoidectomies bilaterally. Some mildly thickened discolored drainage from the left maxillary sinus without overt purulence. No polyps. We discussed the importance of continuing topical medication for her sinuses including daily Flonase and starting saline rinses. We discussed saline rinse technique. Continue Singulair, start taking the Zyrtec more regularly. Follow-up in 2 months to assess the sinuses. Discussed that we can use topical antibiotics because oral antibiotics are not as effective in someone who is chronic sinusitis and multiple sinus surgeries. She is down to about 3 cigarettes/day at this point. Katelin Ruiz MD Subjective This is a 68 y.o. old female presenting with other nasal polyp. Patient reports she has had 2 sinus surgeries, the last being about 3 years ago. She reports she is never been allergy tested but she has a lot of allergy symptoms like watery eyes. She feels that she has a constant postnasal drip. She reports she is getting frequent antibiotics for sinus infection symptoms. She uses saline spray frequently in her nose to loosen things up. She has not used a sinus rinse before. She just started using Flonase daily. She is on Singulair and uses Zyrtec as needed. Medications Outpatient Medications Prior to Visit Medication Sig Dispense Refill albuterol (2.5 MG/3ML) 0.083% nebulizer solution albuterol sulfate 2.5 mg/3 mL (0.083 %) solution for nebulization amLODIPine (Norvasc) 10 MG tablet Take 10 mg by mouth daily. clonazePAM (KlonoPIN) 0.5 MG tablet Take 0.5 mg by mouth Nightly. cyclobenzaprine (Flexeril) 5 MG tablet every 12 hours. meclizine (Antivert) 25 MG tablet every 8 hours. montelukast (Singulair) 10 MG tablet Every 24 hours. fluticasone (Flonase) 50 MCG/ACT nasal spray fluticasone propionate 50 mcg/actuation nasal spray,suspension albuterol 108 (90 Base) MCG/ACT inhaler every 4 hours. alendronate (Fosamax) 70 MG tablet 1 tablet 30 minutes before the first food, beverage or medicine of the day with plain water Orally Once a week for 84 ALPRAZolam (Xanax) 1 MG tablet alprazolam 1 mg tablet azithromycin (Zithromax) 250 MG tablet Every 24 hours. busPIRone (Buspar) 10 MG tablet cefdinir (Omnicef) 300 MG capsule Take 300 mg by mouth 2 times daily. clarithromycin (Biaxin) 500 MG tablet clarithromycin 500 mg tablet clindamycin (Cleocin) 150 MG capsule take 1 capsule by mouth twice a day until finished doxycycline (Vibra-Tabs) 100 MG tablet Take 100 mg by mouth 2 times daily. escitalopram (Lexapro) 10 MG tablet HYDROcodone-acetamino phen ([place]) 5-325 MG tablet take 1 tablet by mouth every 4 to 6 hours WHILE AWAKE if needed for POST OP PAIN for 3 days hydrOXYzine HCl (Atarax) 25 MG tablet take 3 tablets by mouth at bedtime if needed omeprazole (PriLOSEC) [address] capsule take 1 capsule by mouth once daily ON AN EMPTY STOMACH AT LEAST 30 MINUTES BEFORE EATING oxyCODONE-acetaminoph en (Percocet) 5-325 MG tablet take 1 tablet by mouth every 4 to 6 hours if needed FOR POST-OP PAIN WHILE AWAKE ramelteon (Rozerem) 8 MG tablet take 1/2 tablet by mouth at bedtime for 2 NIGHTS then take 1 tablet by mouth at bedtime traMADol (Ultram) 50 MG tablet take 1 tablet by mouth every 4 hours if needed traZODone (Desyrel) 50 MG tablet No facility-administered medications prior to visit. Allergies Allergies Allergen Reactions Escitalopram Anaphylaxis Levofloxacin Anaphylaxis and Swelling Levofloxacin In D5w Swelling Sulfa Antibiotics Anaphylaxis and Swelling Budesonide Other reaction(s): boils Doxycycline Nausea And Vomiting Codeine Other reaction(s): Heart Attack Sx, chest tightness, Other (See Comments) Chest pain chest pain Tetracycline Other reaction(s): Vomiting Trimethoprim Other reaction(s): Anaphylaxis Penicillins Hives and Rash Other reaction(s): hives Problem List Patient Active Problem List Diagnosis Abnormal nuclear stress test Hypertension Closed right hip fracture, initial encounter ([facility]) Closed 2-part intertrochanteric fracture of proximal end of right femur, initial encounter ([facility]) Objective Physical Exam Constitutional - alert, no acute distress, non-toxic appearing. Voice - strong and clear without breathiness. Face - normocephalic, atraumatic Eyes - normal appearing conjunctiva, no icterus Respiratory - normal work of breathing on room air, no audible wheezing or stridor Skin - warm and dry without rash Cranial nerves Grossly normal Results 11/09/23 MRI brain: Images reviewed. Mild thickening of bilateral maxillary sinuses with mucous reten (more content not included)... Normal [facility] 36on 01-13-2024 36 We have been unable to reach your patient to schedule their testing. Test Name: Stress echocardiogram (TTE) exercise with contrast, bubble, strain, and 3D PRN 1st Attempt: 01/12/24 Patient states she will call back 2nd Attempt: 01/13/24 sent [employer] msg JS FYI Normal [facility] 36on 12-29-2023 36 We have been unable to reach your patient to schedule their testing. Test Name: US abdomen. Ordered 04/07/23 1st attempt via [employer], 1 cancellation - 04/10/23, 12/20/23 CL 2nd attempt called TONYA HERNANDEZ to office and defer. 12/29/23 LR Normal [facility] 36 Sent my chart message Normal [facility] XR Ankle - right 3 Viewson 0 11-27-2023 No acute osseous abnormality of the right ankle. Mild soft tissue swelling overlying the lateral malleolus. Report Dictated on Electronically Signed By: Phillip Teague MD Electronically Signed Date/Time: 11/27/2023 9:20 AM EDT [facility] Patient Name: SULLY PERDOMO : 1955 Exam Date/Time: 11/24/2023 16:03 Procedure: XR ANKLE 3+ VIEWS RIGHT Ordering Provider: MARTÍNEZ RICHARD Reason For Exam: PAIN IN RIGHT KNEE CLINICAL INDICATION: Ankle pain. COMPARISON: None. Technique: AP, lateral, and oblique views were obtained of the right ankle. FINDINGS: Three views of the right ankle show no acute fracture or dislocation. The joint spaces are normal and the alignment is anatomic. The talar dome is intact and the ankle mortise is congruent. There is no effusion. Mild soft tissue swelling seen overlying the lateral malleolus. [facility] Gypsy Teague MD - 11/27/2023 Patient Name: SULLY PERDOMO : 1955 Exam Date/Time: 11/24/2023 16:03 Procedure: XR ANKLE 3+ VIEWS RIGHT Ordering Provider: MARTÍNEZ RICHARD Reason For Exam: PAIN IN RIGHT KNEE CLINICAL INDICATION: Ankle pain. COMPARISON: None. Technique: AP, lateral, and oblique views were obtained of the right ankle. FINDINGS: Three views of the right ankle show no acute fracture or dislocation. The joint spaces are normal and the alignment is anatomic. The talar dome is intact and the ankle mortise is congruent. There is no effusion. Mild soft tissue swelling seen overlying the lateral malleolus. IMPRESSION: No acute osseous abnormality of the right ankle. Mild soft tissue swelling overlying the lateral malleolus. Report Dictated on Electronically Signed By: Phlilip Teague MD Electronically Signed Date/Time: 11/27/2023 9:20 AM EDT [employer] XR Ankle - right 3 ViewsOrde red By: Gypsy Teague on 11-27-2023 [employer] Work Phone: XR Knee - right 3 Viewson Moderate degenerativ e narrowing involving the medial compartment of the right knee similar compared to the prior examination. Osteopenia Report Dictated on Electronically Signed By: Phillip Teague MD Electronically Signed Date/Time: 11/27/2023 9:25 AM EDT [facility] Patient Name: SULLY PERDOMO : 1955 Exam Date/Time: 11/24/2023 16:03 Procedure: XR KNEE 3 VIEWS RIGHT Ordering Provider: MARTÍNEZ RICHARD Reason For Exam: PAIN IN RIGHT KNEE CLINICAL HISTORY: Knee pain. COMPARISON: 12/16/2022 Technique: AP, tunnel, sunrise, and lateral views were obtained of the right knee. FINDINGS: 3 views of the right knee shows no acute fracture or dislocation. Moderate degenerative narrowing involving the medial compartment is again visualized unchanged compared to the prior examination. The bones are osteopenic. The alignment is anatomic. There is no effusion. The soft tissues are unremarkable. [facility] Gypsy Teague MD - 11/27/2023 Patient Name: SULLY PERDOMO : 1955 Exam Date/Time: 11/24/2023 16:03 Procedure: XR KNEE 3 VIEWS RIGHT Ordering Provider: MARTÍNZE RICHARD Reason For Exam: PAIN IN RIGHT KNEE CLINICAL HISTORY: Knee pain. COMPARISON: 12/16/2022 Technique: AP, tunnel, sunrise, and lateral views were obtained of the right knee. FINDINGS: 3 views of the right knee shows no acute fracture or dislocation. Moderate degenerative narrowing involving the medial compartment is again visualized unchanged compared to the prior examination. The bones are osteopenic. The alignment is anatomic. There is no effusion. The soft tissues are unremarkable. IMPRESSION: Moderate degenerative narrowing involving the medial compartment of the right knee similar compared to the prior examination. Osteopenia Report Dictated on Electronically Signed By: Phillip Teague MD Electronically Signed Date/Time: 11/27/2023 9:25 AM EDT [facility] No Panel Informationon 11-23 Radiology Study observation (narrative) [facility] MR Brain WO contraston 11-08 No acute intracranial abnormality. Postoperative changes of the paranasal sinuses. Mucosal thickening of the nasal sinuses as discussed. Frothy secretions in the right maxillary sinus nonspecific though raise possibility of acute sinusitis if in the appropriate clinical setting. Report Dictated on Electronically Signed By: Jack Navarro MD Electronically Signed Date/Time: 11/09/2023 3:48 PM EST [facility] Patient Name: SULLY PERDOMO : 1955 Exam Date/Time: 11/09/2023 14:37 Procedure: MR BRAIN WO CONTRAST Ordering Provider: MARTÍNEZ RICHARD Reason For Exam: J32.9 EXAMINATION: MR BRAIN WO CONTRAST HISTORY: Chronic sinusitis. Fever and headache. TECHNIQUE: Multiplanar, multisequence MRI of the brain was performed without contrast. COMPARISON: Head CT 06/11/2022 RESULT: Acute Change: There is no evidence of restricted diffusion to suggest an acute infarct. Hemorrhage: No evidence of prior parenchymal hemorrhage on the gradient echo images. Mass Lesion/ Mass Effect: No evidence of an intracranial mass or extra-axial fluid collection. No significant mass effect. Chronic Change: Scattered patchy areas of increased T2 and FLAIR signal are present in the supratentorial white matter which is a nonspecific finding but likely represents mild chronic microvascular ischemia. Parenchyma: No significant volume loss for age. Ventricles: Normal caliber and morphology. Skull Base: Hypothalamic and pituitary region are grossly normal. Craniocervical junction is normal. No significant marrow replacement process. Vasculature: Major intracranial arterial structures, and dural venous sinuses show typical flow void, suggesting patency by spin echo criteria. Other: Mild mucosal thickening in the maxillary sinuses. Mucous retention cyst/polyps of the maxillary sinuses. Mild frothy secretions in the right maxillary sinus. Mild mucosal thickening of the right frontal sinus Postoperative changes suggestive of bilateral maxillary antrostomies and partial ethmoidectomy on the left posteriorly. Bilateral lens replacements. The orbits and extracranial soft tissues are unremarkable. [facility] Jack Navarro MD - 11/09/2023 Patient Name: SULLY PERDOMO : 1955 Exam Date/Time: 11/09/2023 14:37 Procedure: MR BRAIN WO CONTRAST Ordering Provider: MARTÍNEZ RICHARD Reason For Exam: J32.9 EXAMINATION: MR BRAIN WO CONTRAST HISTORY: Chronic sinusitis. Fever and headache. TECHNIQUE: Multiplanar, multisequence MRI of the brain was performed without contrast. COMPARISON: Head CT 06/11/2022 RESULT: Acute Change: There is no evidence of restricted diffusion to suggest an acute infarct. Hemorrhage: No evidence of prior parenchymal hemorrhage on the gradient echo images. Mass Lesion/ Mass Effect: No evidence of an intracranial mass or extra-axial fluid collection. No significant mass effect. Chronic Change: Scattered patchy areas of increased T2 and FLAIR signal are present in the supratentorial white matter which is a nonspecific finding but likely represents mild chronic microvascular ischemia. Parenchyma: No significant volume loss for age. Ventricles: Normal caliber and morphology. Skull Base: Hypothalamic and pituitary region are grossly normal. Craniocervical junction is normal. No significant marrow replacement process. Vasculature: Major intracranial arterial structures, and dural venous sinuses show typical flow void, suggesting patency by spin echo criteria. Other: Mild mucosal thickening in the maxillary sinuses. Mucous retention cyst/polyps of the maxillary sinuses. Mild frothy secretions in the right maxillary sinus. Mild mucosal thickening of the right frontal sinus Postoperative changes suggestive of bilateral maxillary antrostomies and partial ethmoidectomy on the left posteriorly. Bilateral lens replacements. The orbits and extracranial soft tissues are unremarkable. IMPRESSION: No acute intracranial abnormality. Postoperative changes of the paranasal sinuses. Mucosal thickening of the nasal sinuses as discussed. Frothy secretions in the right maxillary sinus nonspecific though raise possibility of acute sinusitis if in the appropriate clinical setting. Report Dictated on Electronically Signed By: Jack Navarro MD Electronically Signed Date/Time: 11/09/2023 3:48 PM EST [facility] Radiology Study observation (narrative) [facility] MR Brain WO contrastOrdered By: Jack Navarro on 11-09-2023 [facility] Work Phone: Gram stain for investigation of transfusion reactionOrdered By: Hai Hess on 10-23-2023 Microscopic observation Gram stain Nom (Unsp spec) [facility] Microscopic observation Gram stain Nom (Unsp spec) [facility] No Panel InformationOrdered By: Hai Hess on 10-23-2023 Nasopharyngeal Culture Pseudomonas aeruginosa [facility] Nasopharyngeal Culture Pseudomonas aeruginosa [facility] XR Chest 2 Viewson 3 Hyperinflation of the lungs with coarsening of the interstitial lung markings, suggestive of a component of obstructive lung disease. No focal consolidation is identified. Report Dictated on Electronically Signed By: Rambo Samano MD Electronically Signed Date/Time: 06/24/2023 7:31 PM EDT [facility] Patient Name: SULLY PERDOMO : 1955 Exam Date/Time: 06/24/2023 13:49 Procedure: XR CHEST 2 VIEWS Ordering Provider: MARTÍNEZ RICHARD Reason For Exam: PULMONARY EMPHYSEMA CHEST X-RAY PA/LATERAL CLINICAL INDICATION: PULMONARY EMPHYSEMA Frontal and lateral plain films of the chest were obtained. COMPARISON: 11/27/2022 FINDINGS: The cardiac silhouette is within normal limits. The lungs are hyperinflated. Right upper lung calcifications are unchanged. Coarsening of the interstitial lung markings is noted, likely chronic. No focal consolidation is seen within the lungs. No pleural effusion or pneumothorax is identified. There are degenerative changes of the thoracic spine. [facility] Rambo Samano MD - 06/24/2023 Patient Name: SULLY PERDOMO : 1955 Exam Date/Time: 06/24/2023 13:49 Procedure: XR CHEST 2 VIEWS Ordering Provider: MARTÍNEZ RICHARD Reason For Exam: PULMONARY EMPHYSEMA CHEST X-RAY PA/LATERAL CLINICAL INDICATION: PULMONARY EMPHYSEMA Frontal and lateral plain films of the chest were obtained. COMPARISON: 11/27/2022 FINDINGS: The cardiac silhouette is within normal limits. The lungs are hyperinflated. Right upper lung calcifications are unchanged. Coarsening of the interstitial lung markings is noted, likely chronic. No focal consolidation is seen within the lungs. No pleural effusion or pneumothorax is identified. There are degenerative changes of the thoracic spine. IMPRESSION: Hyperinflation of the lungs with coarsening of the interstitial lung markings, suggestive of a component of obstructive lung disease. No focal consolidation is identified. Report Dictated on Electronically Signed By: Rambo Samano MD Electronically Signed Date/Time: 06/24/2023 7:31 PM EDT [facility] [email or web address] Radiology Study observation (narrative) [facility] [email or web address] XR Chest 2 ViewsOrdered By: Rambo Samano on 06-24-2023 [employer] Work Phone: XR Hip - left 3 Viewson 03-07 No acute osseous abnormality of the left hip. Specifically, no suspicious osseous lesions. Mild degenerative changes of both hip joints. Osteopenia. Report Dictated on Electronically Signed By: Phillip Teague MD Electronically Signed Date/Time: 03/19/2023 1:30 PM EDT [facility] Patient Name: SULLY PERDOMO : 1955 Exam Date/Time: 03/18/2023 12:38 Procedure: XR HIP 2 OR 3 VW LEFT Ordering Provider: MARTÍNEZ RICHARD Reason For Exam: R22.42 Clinical indication: Patient found a small bump on lateral aspect of the left hip one week ago. No history of trauma. COMPARISON: 2019. TECHNIQUE: AP and frog-leg lateral views were obtained of the left hip. Additionally, an AP view was obtained of the pelvis. FINDINGS: Three views of the left hip shows no acute fracture or dislocation. No suspicious osseous lesions are identified. There are mild degenerative changes of both hip joints. Status post cephalo medullary fixation of the right femur. Bones are diffusely osteopenic. The soft tissues are normal. [facility] Gypsy Teague MD - 03/19/2023 Patient Name: SULLY PERDOMO : 1955 Exam Date/Time: 03/18/2023 12:38 Procedure: XR HIP 2 OR 3 VW LEFT Ordering Provider: MARTÍNEZ RICHARD Reason For Exam: R22.42 Clinical indication: Patient found a small bump on lateral aspect of the left hip one week ago. No history of trauma. COMPARISON: 2019. TECHNIQUE: AP and frog-leg lateral views were obtained of the left hip. Additionally, an AP view was obtained of the pelvis. FINDINGS: Three views of the left hip shows no acute fracture or dislocation. No suspicious osseous lesions are identified. There are mild degenerative changes of both hip joints. Status post cephalo medullary fixation of the right femur. Bones are diffusely osteopenic. The soft tissues are normal. IMPRESSION: No acute osseous abnormality of the left hip. Specifically, no suspicious osseous lesions. Mild degenerative changes of both hip joints. Osteopenia. Report Dictated on Electronically Signed By: Phillip Teague MD Electronically Signed Date/Time: 03/19/2023 1:30 PM EDT [employer] XR Hip - left 3 ViewsOrdered By: Gypsy Teague on 03-19-2023 [employer] Work Phone: XR Hip - left 3 Viewson 03-07 Radiology Study observation (narrative) [employer] No Panel Informationon 12-16 Arthritic changes. N o acute process. Report Dictated on Electronically Signed By: Angel Rao Electronically Signed Date/Time: 12/16/2022 3:02 PM EDT [facility] Patient Name: SULLY PERDOMO : 1955 Exam Date/Time: 12/16/2022 13:39 Procedure: XR KNEES ANTEROPOSTERIOR STANDING BILATERAL Ordering Provider: TOBAR ROBERT Reason For Exam: KNEE PAIN RIGHT KNEE, 4 VIEWS, WEIGHTBEARING: CLINICAL INDICATION: Knee pain COMPARISON: No prior studies are available for comparison. Lateral, sunrise and standing tunnel and frontal views of the right knee were obtained. In addition weight-bearing frontal and tunnel views of the contralateral knee were obtained. The bone density appears normal. No fracture or dislocation is noted. There is medial compartment narrowing and marginal spurring as well as spurring of the undersurface of the patella. There are no significant soft tissue abnormalities. No joint effusion is appreciated. [facility] Angel Rao DO - 12/16/2022 Patient Name: SULLY PERDOMO : 1955 Exam Date/Time: 12/16/2022 13:39 Procedure: XR KNEES ANTEROPOSTERIOR STANDING BILATERAL Ordering Provider: TOBAR ROBERT Reason For Exam: KNEE PAIN RIGHT KNEE, 4 VIEWS, WEIGHTBEARING: CLINICAL INDICATION: Knee pain COMPARISON: No prior studies are available for comparison. Lateral, sunrise and standing tunnel and frontal views of the right knee were obtained. In addition weight-bearing frontal and tunnel views of the contralateral knee were obtained. The bone density appears normal. No fracture or dislocation is noted. There is medial compartment narrowing and marginal spurring as well as spurring of the undersurface of the patella. There are no significant soft tissue abnormalities. No joint effusion is appreciated. IMPRESSION: Arthritic changes. No acute process. Report Dictated on Electronically Signed By: Angel Rao Electronically Signed Date/Time: 12/16/2022 3:02 PM EDT [employer] Radiology Study observation (narrative) [employer] No Panel InformationOrdered By: Angel Rao on 12-16-2022 [employer] Work Phone: XR Knee - right 1 or 2 Views on 12-16-2022 Patient Name: SULLY PERDOMO : 1955 Exam Date/Time: 12/16/2022 13:39 Procedure: XR KNEE 1-2 VIEWS RIGHT Ordering Provider: TOBAR ROBERT Reason For Exam: KNEE PAIN RIGHT KNEE, 4 VIEWS, WEIGHTBEARING: CLINICAL INDICATION: Knee pain COMPARISON: No prior studies are available for comparison. Lateral, sunrise and standing tunnel and frontal views of the right knee were obtained. In addition weight-bearing frontal and tunnel views of the contralateral knee were obtained. The bone density appears normal. No fracture or dislocation is noted. There is medial compartment narrowing and marginal spurring as well as spurring of the undersurface of the patella. There are no significant soft tissue abnormalities. No joint effusion is appreciated. [facility] Angel Rao - 12/16/2022 Patient Name: SULLY PERDOMO : 1955 Exam Date/Time: 12/16/2022 13:39 Procedure: XR KNEE 1-2 VIEWS RIGHT Ordering Provider: TOBAR ROBERT Reason For Exam: KNEE PAIN RIGHT KNEE, 4 VIEWS, WEIGHTBEARING: CLINICAL INDICATION: Knee pain COMPARISON: No prior studies are available for comparison. Lateral, sunrise and standing tunnel and frontal views of the right knee were obtained. In addition weight-bearing frontal and tunnel views of the contralateral knee were obtained. The bone density appears normal. No fracture or dislocation is noted. There is medial compartment narrowing and marginal spurring as well as spurring of the undersurface of the patella. There are no significant soft tissue abnormalities. No joint effusion is appreciated. IMPRESSION: Arthritic changes. No acute process. Report Dictated on Electronically Signed By: Angel Rao Electronically Signed Date/Time: 12/16/2022 3:02 PM EDT [facility] XR Chest 2 Viewson 3 No acute cardiopulmonary process. Report Dictated on Electronically Signed By: Bartolome Aguayo Electronically Signed Date/Time: 11/28/2022 2:49 PM EDT [facility] Patient Name: SULLY PERDOMO : 1955 Exam Date/Time: 11/27/2022 08:35 Procedure: XR CHEST 2 VIEWS Ordering Provider: MARTÍNEZ RICHARD Reason For Exam: R09.02 CHEST: CLINICAL INDICATION: Hypoxemia TECHNIQUE: PA and Lateral COMPARISON: 05/20/2021 chest x-ray FINDINGS: Mediastinum: Cardiomediastinal silhouette is normal in size and configuration. Lungs: Stable calcified nodularity in the right upper lung zone. Bibasilar atelectasis. Hyperinflation of the lungs with flattening of the diaphragm bilaterally. No pleural effusion, focal consolidation or pneumothorax. Osseous structures: No acute osseous abnormality. [facility] Bartolome Aguayo MD - 11/28/2022 Patient Name: SULLY [facility]DOM[facility] 1955 [id number] Exam Date/Time: 11/27/2022 08:35 Procedure: XR CHEST 2 VIEWS Ordering Provider: MARTÍNEZ RICHARD Reason For Exam: R09.02 CHEST: CLINICAL INDICATION: Hypoxemia TECHNIQUE: PA and Lateral COMPARISON: 05/20/2021 chest x-ray FINDINGS: Mediastinum: Cardiomediastinal silhouette is normal in size and configuration. Lungs: Stable calcified nodularity in the right upper lung zone. Bibasilar atelectasis. Hyperinflation of the lungs with flattening of the diaphragm bilaterally. No pleural effusion, focal consolidation or pneumothorax. Osseous structures: No acute osseous abnormality. IMPRESSION: No acute cardiopulmonary process. Report Dictated on Electronically Signed By: Bartolome Aguayo Electronically Signed Date/Time: 11/28/2022 2:49 PM EDT [facility] 2 ViewsOrdered By: Bartolome Aguayo on 11-28-2022 [facility] [email or web address] Work Phone: XR Chest 2 Viewson Radiology Study observation (narrative) [facility] Basic Metabolic Panelon 10-0 Anion gap [Moles/Vol] 9 mmol/L Normal 3-13 [facility] Comment on above: Performed By: #### B MP3 #### [facility] [address] [place] [address] Calcium [Mass/Vol] 9.6 mg/dL Normal 8.4-10.4 [facility] Comment on above: Performed By: #### B MP3 #### [facility] [address] [place] [address] CO2 [Moles/Vol] 23 mmol/L Normal 22-30 [facility] Comment on above: Performed By: #### B MP3 #### [facility] [address] [place] [address] Creatinine [Mass/Vol] 0.69 mg/dL Normal 0.52-1.25 [facility] Comment on above: Performed By: #### B MP3 #### [facility] [address] [place] [address] eGFR OTHER > 90.0 Normal >60 [facility] Comment on above: Result Comment: KDIG O guidelines provide the following GFR categories: Stage GFR(ml/min/1.73 m2) Terms G1 >=90 Normal or high G2 60-89 Mildly decreased* G3a 45-59 Mildly to moderately decreased G3b 30-44 Moderately to severely decreased G4 15-29 Severely decreased G5 <15 Kidney failure *Relative to young adult level. In the absence of evidence of kidney damage, neither GFR category G1 nor G2 fulfill the criteria for CKD. The CKD-EPI equation is validated in individuals 18 years of age and older. Currently the best equation for estimating glomerular filtration rate (GFR) from serum creatinine in children is the Bedside Thomas equation. It is less accurate in patients with extremes of muscle mass, restriction of dietary protein, ingestion of creatine, extra-renal metabolism of creatinine, or treatment with medications that affect renal tubular creatinine secretion. Performed By: #### B MP3 #### [facility] [address] [place] [address] GFR/1.73 sq M.predicted among blacks MDRD (S/P/Bld) [Vol rate/Area] mL/min/{1.73_m2} Normal >60 [facility] Comment on above: Performed By: #### B MP3 #### [facility] [address] [place] [address] Glucose [Mass/Vol] 100 mg/dL Normal 70-100 [facility] Comment on above: Performed By: #### B MP3 #### [facility] [address] [place] [address] Urea nitrogen [Mass/Vol] 12 mg/dL Normal 9-20 [facility] Comment on above: Performed By: #### B MP3 #### [facility] [address] [place] [address] Chloride [Moles/Vol] 107 mmol/L Normal 98-107 [facility] Comment on above: Performed By: #### B MP3 #### [facility] [address] [place] [address] Potassium [Moles/Vol] 3.9 mmol/L Normal 3.5-5.1 [facility] Comment on above: Performed By: #### B MP3 #### [facility] [address] [place] [address] Sodium [Moles/Vol] 138 mmol/L Normal 135-145 [facility] Comment on above: Performed By: #### B MP3 #### [facility] [address] [place] [address] CT Head or Brain w/ + w/o Co ntraston 06-11-2022 CT Head or Brain w/ + w/o Contrast Patient Name: SULLY PERDOMO Computed Tomography ACCESSION EXAM DATE/TIME PROCEDURE ORDERING PROVIDER [id number] 06/11/2022 11:[address] Head or Brain w/ + w/ MD CRISTOPHER, [facility] o Contrast CPT code 07456 Q9967 Reason For Exam (CT Head or Brain w/ + w/o Contrast) dizziness Report EXAMINATION: CT Head or Brain w/ + w/o Contrast CLINICAL HISTORY: dizziness COMPARISON: None TECHNIQUE: CT of the head with and without contrast. FINDINGS: There is no evidence of a recent infarct, mass, hemorrhage, or extra-axial fluid collection. No abnormal brain parenchymal enhancement is identified. The ventricles are normal in caliber. The dural venous sinuses appear patent. The cerebellar tonsils, hypothalamus, pituitary gland appear normal. There is no evidence of an orbital mass or inflammatory process. The imaged portions of the paranasal sinuses are clear. The patient is status post endoscopic sinonasal surgery on the left. No bone lesion is identified. IMPRESSION: 1. Normal CT of the head with and without contrast. Report Dictated on Final Dictating Physician: MD MORALES THOMAS Signed Date and Time: 06/12/2022 12:03 pm Signed by: MD MORALES THOMAS Transcribed Date and Time: 06/12/2022 12:04 Normal [facility] CR Wrist Complete 3 Views [facility] 12-01-2021 CR Wrist Complete 3 Views Right Patient Name: SULLY PERDOMO Diagnostic Radiology ACCESSION EXAM DATE/TIME PROCEDURE ORDERING PROVIDER [id number] 12/01/2021 10:20 EDT CR Wrist Complete 3 MD IBARRA DAVID L Views Right CPT code 84141 Reason For Exam (CR Wrist Complete 3 Views Right) fell Report RIGHT WRIST: CLINICAL INDICATION: Fall, pain TECHNIQUE: PA, lateral and oblique COMPARISON: 12/15/2016 FINDINGS: There is a horizontal fracture through the distal radius with volar displacement of the distal fracture fragment. An ulnar styloid fracture is also present. Degenerative changes are present in the first carpal metacarpal joint. Soft tissue swelling surrounding the wrist. Report Dictated on Final Dictating Physician: MD FLOREZ NICHOLAS Signed Date and Time: 12/01/2021 10:33 am Signed by: MD FLOREZ NICHOLAS Transcribed Date and Time: 12/01/2021 10:34 [facility] XR WRIST RIGHT 3 VWon 2021 Patient Name: SULLY PERDOMO Diagnostic Radiology ACCESSION EXAM DATE/TIME PROCEDURE ORDERING PROVIDER [id number] 12/01/2021 10:20 EDT CR Wrist Complete 3 MD IBARRA DAVID L Views Right CPT code 01753 Reason For Exam (CR Wrist Complete 3 Views Right) fell Report RIGHT WRIST: CLINICAL INDICATION: Fall, pain TECHNIQUE: PA, lateral and oblique COMPARISON: 12/15/2016 FINDINGS: There is a horizontal fracture through the distal radius with volar displacement of the distal fracture fragment. An ulnar styloid fracture is also present. Degenerative changes are present in the first carpal metacarpal joint. Soft tissue swelling surrounding the wrist. Report Dictated on --- Final --- Dictating Physician: MD FLOREZ NICHOLAS Signed Date and Time: 12/01/2021 10:33 am Signed by: MD FLOREZ NICHOLAS Transcribed Date and Time: 12/01/2021 10:34 [facility] Dk Florez MD - 12/01/2021 Patient Name: SULLY PERDOMO Diagnostic Radiology ACCESSION EXAM DATE/TIME PROCEDURE ORDERING PROVIDER [id number] 12/01/2021 10:20 EDT CR Wrist Complete 3 MD NATO, ANNA Flores Views Right CPT code 49274 Reason For Exam (CR Wrist Complete 3 Views Right) fell Report RIGHT WRIST: CLINICAL INDICATION: Fall, pain TECHNIQUE: PA, lateral and oblique COMPARISON: 12/15/2016 FINDINGS: There is a horizontal fracture through the distal radius with volar displacement of the distal fracture fragment. An ulnar styloid fracture is also present. Degenerative changes are present in the first carpal metacarpal joint. Soft tissue swelling surrounding the wrist. Report Dictated on --- Final --- Dictating Physician: MD FLOREZ NICHOLAS Signed Date and Time: 12/01/2021 10:33 am Signed by: MD FLOREZ NICHOLAS Transcribed Date and Time: 12/01/2021 10:34 [employer] Work Phone: Radiology Study observation (narrative) [employer] Work Phone: XR WRIST RIGHT 3 VWOrdered B y: Dk Florez on 12-01-2021 [employer] Work Phone: MRI Low Ext Joint w/o Contra [facility] 09-20-2021 MRI Low Ext Joint w/o Contrast Right Patient Name: SULLY PERDOMO Magnetic Resonance Imaging ACCESSION EXAM DATE/TIME PROCEDURE ORDERING PROVIDER [id number] 09/20/2021 16:41 EST MRI Low Ext Joint w/o MD CRISTOPHER, JEREMIAH Oleary Contrast Right CPT code 81853 Reason For Exam (MRI Low Ext Joint w/o Contrast Right) loose body of knee Report Examination: MRI right knee Clinical Indication: loose body of knee Comparison: X-ray 07/12/2021 Findings: Multiplanar multisequence high field strength MRI images were obtained through the right knee without intravenous contrast. No osseous contusion or fracture. Small enchondroma within the distal femoral catheters cysts measures 1.1 cm. Medial meniscus demonstrates abnormal morphology and signal throughout the posterior horn and posterior body segment medial meniscus consistent with age-indeterminate tear with a sizable radial component. There is a small flap of meniscus extending inferiorly at the posterior body segment. Meniscus is peripherally subluxed. There is advanced medial compartment articular cartilage thinning with mild chondromalacia. Small osteophytes. Minimal degenerative edema peripherally. Cruciate, capsular and collateral ligaments are intact. Mild degeneration within the ACL. Extensor mechanism demonstrates no abnormality. Minimal prepatellar soft tissue swelling. There is a loose body within the posterior joint space posterior to the PCL measuring 1.3 cm cranial caudal, 1.2 cm anterior to posterior, and up to 1.6 cm medial lateral. Lateral meniscus is normal in morphology and signal without tear. Lateral compartment articular cartilage demonstrates mild peripheral cartilage thinning. There is some fissuring along the tibia. Small osteophytes. Small knee joint effusion. No sizable Miller's cyst. Patellofemoral articular cartilage demonstrates mild cartilage thinning and chondromalacia. Small osteophytes. Borderline increased 1.6 cm offset between the tibial tubercle and trochlear groove, TT-TG. Impression: 1. Small enchondroma distal femoral metaphysis 1.1 cm. 2. Age-indeterminate complex tear of the posterior horn and posterior body segment medial meniscus with a small flap extending inferiorly to the body Magnetic Resonance Imaging Report segment. Meniscus is peripherally subluxed. 3. Advanced medial compartment cartilage loss with moderate osteoarthropathy. 1.3 x 1.2 x 1.6 cm loose body calcification posterior knee joint space. Report Dictated on Final Dictating Physician: MD NICKERSON ANTHONY J Signed Date and Time: 09/22/2021 3:56 pm Signed by: MD NICKERSON ANTHONY J Transcribed Date and Time: 09/22/2021 3:57 Normal [facility] CR Knee Complete 4+ Views [facility] 07-12-2021 CR Knee Complete 4+ Views Right Patient Name: SULLY PERDOMO Diagnostic Radiology ACCESSION EXAM DATE/TIME PROCEDURE ORDERING PROVIDER [id number] 07/12/2021 12:59 EDT CR Knee Complete 4+ MD CRISTOPHER, JEREMIAH H Views Right CPT code 42156 Reason For Exam (CR Knee Complete 4+ Views Right) edema Report RIGHT KNEE History: Knee pain, swelling, recent injury COMPARISON: 11/08/2019 Findings: Four views of the right knee show osteoarthritis changes with spurs at the tibial, femoral, and patellar joint margins, and narrowing of the medial tibiofemoral joint space. There is no appreciable acute fracture or dislocation but there is probable suprapatellar joint effusion. There are calcifications/loose bodies in the posterior aspect of the knee.. There is no periosteal reaction or bone erosion. IMPRESSION: Osteoarthritis with loose bodies and probably joint effusion. Consider MRI. No acute fracture. Report Dictated on Final Dictating Physician: MD STOKES AHMAD Signed Date and Time: 07/15/2021 8:33 am Signed by: MD STOKES AHMAD Transcribed Date and Time: 07/15/2021 8:35 Normal [facility] CT Cervical Spine WO Contras tOrdered By: Anna Herrera on 01-18-2021 Patient Name: SULLY PERDOMO Computed Tomography ACCESSION EXAM DATE/TIME PROCEDURE ORDERING PROVIDER [id number] 01/18/2021 01:[address] Spine Cervical w/o 5816 -ANNA HERRERA Contrast CPT code 95229 Reason For Exam (CT Spine Cervical w/o Contrast) fall, struck head, intoxicated Report CLINICAL INDICATION: fall, struck head, intoxicated, post head wound COMPARISON: 06/24/2020 HEAD: Technique: Axial CT images were obtained from skull base to vertex. Images were reformatted in coronal and sagittal projections. Intravenous contrast: None Findings: Left superior lateral scalp hematoma is seen. There is no CT evidence of an acute intracranial hemorrhage, territorial infarction, midline shift, mass effect, or extra-axial collection. The asencio-white differentiation remains preserved and the basal cisterns are patent.Ventricles are appropriate in size for the patient's age and level of parenchymal volume. No fractures are seen. Mucosal disease is seen within the paranasal sinuses. Mastoid air cells remain well aerated. Bilateral nasal bone fracture deformities, chronic in appearance. CERVICAL SPINE: TECHNIQUE: Axial CT images were obtained of the cervical spine. Images were reformatted in coronal and sagittal projections. Intravenous contrast: None FINDINGS: No prevertebral soft tissue swelling is identified. Predental space is within normal limits and the lateral masses of C1 are in appropriate position. The craniocervical junction is intact. The normal cervical lordosis is maintained. The vertebral bodies of the cervical spine are normal in height without evidence of an acute fracture. There is no evidence of a spinous process fracture.. Mild multilevel degenerative findings throughout the cervical spine are unchanged from prior study. Pulmonary emphysema and right upper lobe calcified granulomas are unchanged from prior study. No cervical lymphadenopathy is seen. Right lobe thyroid enlargement is again seen with extension into the superior mediastinum. COMBINED IMPRESSION: Computed Tomography Report 1. No acute intracranial hemorrhage or territorial infarct. Left lateral scalp hematoma. 2. No acute osseous injury of the cervical spine. Unchanged multilevel degenerative findings. Report Dictated on Workstation: [facility] --- Final --- Dictating Physician: MD SALOMON JAMES Signed Date and Time: 01/18/2021 2:26 am Signed by: MD SALOMON JAMES Transcribed Date and Time: 01/18/2021 2:27 [facility] Work Phone: [facility] Incoming Radiology Results From [facility] - 01/18/2021 2:27 AM EDT Patient Name: SULLY PERDOMO Computed Tomography ACCESSION EXAM DATE/TIME PROCEDURE ORDERING PROVIDER [id number] 01/18/2021 01:[address] Spine Cervical w/o ANNA BUENO Contrast CPT code 31876 Reason For Exam (CT Spine Cervical w/o Contrast) fall, struck head, intoxicated Report CLINICAL INDICATION: fall, struck head, intoxicated, post head wound COMPARISON: 06/24/2020 HEAD: Technique: Axial CT images were obtained from skull base to vertex. Images were reformatted in coronal and sagittal projections. Intravenous contrast: None Findings: Left superior lateral scalp hematoma is seen. There is no CT evidence of an acute intracranial hemorrhage, territorial infarction, midline shift, mass effect, or extra-axial collection. The asencio-white differentiation remains preserved and the basal cisterns are patent.Ventricles are appropriate in size for the patient's age and level of parenchymal volume. No fractures are seen. Mucosal disease is seen within the paranasal sinuses. Mastoid air cells remain well aerated. Bilateral nasal bone fracture deformities, chronic in appearance. CERVICAL SPINE: TECHNIQUE: Axial CT images were obtained of the cervical spine. Images were reformatted in coronal and sagittal projections. Intravenous contrast: None FINDINGS: No prevertebral soft tissue swelling is identified. Predental space is within normal limits and the lateral masses of C1 are in appropriate position. The craniocervical junction is intact. The normal cervical lordosis is maintained. The vertebral bodies of the cervical spine are normal in height without evidence of an acute fracture. There is no evidence of a spinous process fracture.. Mild multilevel degenerative findings throughout the cervical spine are unchanged from prior study. Pulmonary emphysema and right upper lobe calcified granulomas are unchanged from prior study. No cervical lymphadenopathy is seen. Right lobe thyroid enlargement is again seen with extension into the superior mediastinum. COMBINED IMPRESSION: Computed Tomography Report 1. No acute intracranial hemorrhage or territorial infarct. Left lateral scalp hematoma. 2. No acute osseous injury of the cervical spine. Unchanged multilevel degenerative findings. Report Dictated on Workstation: [facility] --- Final --- Dictating Physician: MD SALOMON JAMES Signed Date and Time: 01/18/2021 2:26 am Signed by: MD SALOMON JAMES Transcribed Date and Time: 01/18/2021 2:27 [facility] Work Phone: CT Head WO ContrastOrdered B y: Anna Amaralanda on 01-18-2021 [id number] Computed Tomography ACCESSION EXAM DATE/TIME PROCEDURE ORDERING PROVIDER [id number] 01/18/2021 01:[address] Head or Brain w/o 5816 -SHARONANNA Contrast CPT code 28607 Reason For Exam (CT Head or Brain w/o Contrast) fall, struck head, intoxicated, post head wound Report CLINICAL INDICATION: fall, struck head, intoxicated, post head wound COMPARISON: 06/24/2020 HEAD: Technique: Axial CT images were obtained from skull base to vertex. Images were reformatted in coronal and sagittal projections. Intravenous contrast: None Findings: Left superior lateral scalp hematoma is seen. There is no CT evidence of an acute intracranial hemorrhage, territorial infarction, midline shift, mass effect, or extra-axial collection. The asencio-white differentiation remains preserved and the basal cisterns are patent.Ventricles are appropriate in size for the patient's age and level of parenchymal volume. No fractures are seen. Mucosal disease is seen within the paranasal sinuses. Mastoid air cells remain well aerated. Bilateral nasal bone fracture deformities, chronic in appearance. CERVICAL SPINE: TECHNIQUE: Axial CT images were obtained of the cervical spine. Images were reformatted in coronal and sagittal projections. Intravenous contrast: None FINDINGS: No prevertebral soft tissue swelling is identified. Predental space is within normal limits and the lateral masses of C1 are in appropriate position. The craniocervical junction is intact. The normal cervical lordosis is maintained. The vertebral bodies of the cervical spine are normal in height without evidence of an acute fracture. There is no evidence of a spinous process fracture.. Mild multilevel degenerative findings throughout the cervical spine are unchanged from prior study. Pulmonary emphysema and right upper lobe calcified granulomas are unchanged from prior study. No cervical lymphadenopathy is seen. Right lobe thyroid enlargement is again seen with extension into the superior mediastinum. COMBINED IMPRESSION: Computed Tomography Report 1. No acute intracranial hemorrhage or territorial infarct. Left lateral scalp hematoma. 2. No acute osseous injury of the cervical spine. Unchanged multilevel degenerative findings. Report Dictated on Workstation: [facility] --- Final --- Dictating Physician: MD SALOMON JAMES Signed Date and Time: 01/18/2021 2:26 am Signed by: MD SALOMON JAMES Transcribed Date and Time: 01/18/2021 2:27 [facility] Work Phone: [facility], [facility] Incoming Radiology Results From [facility] - 01/18/2021 2:27 AM EDT Patient Name: [id number] Computed Tomography ACCESSION EXAM DATE/TIME PROCEDURE ORDERING PROVIDER [id number] 01/18/2021 01:[address] Head or Brain w/o 58Ivory -ANNA HERRERA Contrast CPT code 18488 Reason For Exam (CT Head or Brain w/o Contrast) fall, struck head, intoxicated, post head wound Report CLINICAL INDICATION: fall, struck head, intoxicated, post head wound COMPARISON: 06/24/2020 HEAD: Technique: Axial CT images were obtained from skull base to vertex. Images were reformatted in coronal and sagittal projections. Intravenous contrast: None Findings: Left superior lateral scalp hematoma is seen. There is no CT evidence of an acute intracranial hemorrhage, territorial infarction, midline shift, mass effect, or extra-axial collection. The asencio-white differentiation remains preserved and the basal cisterns are patent.Ventricles are appropriate in size for the patient's age and level of parenchymal volume. No fractures are seen. Mucosal disease is seen within the paranasal sinuses. Mastoid air cells remain well aerated. Bilateral nasal bone fracture deformities, chronic in appearance. CERVICAL SPINE: TECHNIQUE: Axial CT images were obtained of the cervical spine. Images were reformatted in coronal and sagittal projections. Intravenous contrast: None FINDINGS: No prevertebral soft tissue swelling is identified. Predental space is within normal limits and the lateral masses of C1 are in appropriate position. The craniocervical junction is intact. The normal cervical lordosis is maintained. The vertebral bodies of the cervical spine are normal in height without evidence of an acute fracture. There is no evidence of a spinous process fracture.. Mild multilevel degenerative findings throughout the cervical spine are unchanged from prior study. Pulmonary emphysema and right upper lobe calcified granulomas are unchanged from prior study. No cervical lymphadenopathy is seen. Right lobe thyroid enlargement is again seen with extension into the superior mediastinum. COMBINED IMPRESSION: Computed Tomography Report 1. No acute intracranial hemorrhage or territorial infarct. Left lateral scalp hematoma. 2. No acute osseous injury of the cervical spine. Unchanged multilevel degenerative findings. Report Dictated on Workstation: [facility] --- Final --- Dictating Physician: MD SALOMON JAMES Signed Date and Time: 01/18/2021 2:26 am Signed by: MD SALOMON JAMES Transcribed Date and Time: 01/18/2021 2:27 [facility] Work Phone: [employer]airOrdered By: Anna Herrera on 01-18-2021 Anna Herrera MD 01/18/2021 2:54 AM [employer] Date/Time: 01/18/2021 2:54 AM Performed by: Anna Herrera MD Authorized by: Anna Herrera MD Consent: Consent obtained: Verbal Consent given by: Patient Risks discussed: Infection, pain, poor wound healing, nerve damage, poor cosmetic result and need for additional repair Alternatives discussed: Observation and referral Anesthesia (see MAR for exact dosages): Anesthesia method: None Laceration details: Location: Scalp Scalp location: Occipital Length (cm): 3 Depth (mm): 7 Repair type: Repair type: Simple Pre-procedure details: Preparation: Patient was prepped and draped in usual sterile fashion Exploration: Hemostasis achieved with: Direct pressure Wound extent: no foreign bodies/material noted, no muscle damage noted, no tendon damage noted, no underlying fracture noted and no vascular damage noted Contaminated: no Treatment: Area cleansed with: Saline Amount of cleaning: Standard Irrigation solution: Sterile saline Irrigation method: Pressure wash Skin repair: Repair method: [place] Number of mina: 6 Approximation: Approximation: Close Post-procedure details: Dressing: Antibiotic ointment and bulky dressing Patient tolerance of procedure: Tolerated well, no immediate complications [facility] Work Phone: DUP CAROTID BILATERALon 0 10-04-2020 [facility] [id number] Ultrasound ACCESSION EXAM DATE/TIME PROCEDURE ORDERING PROVIDER [id number] 10/04/2020 10:45 EST Carotid Duplex MD CRISTOPHER, JEREMIAH Oleary Ultrasound Complete CPT code 78084 Reason For Exam ( Carotid Duplex Ultrasound Complete) occ of carotid art Report BILATERAL CAROTID ULTRASOUND: CLINICAL INDICATION: Vertigo and dizziness. TECHNIQUE: Two-dimensional, Color-flow and spectral Doppler sonography of the extracranial arterial circulation was performed. COMPARISON: None. FINDINGS: RIGHT: Plaque: Minimal plaque identified CCA peak systolic: 68 cm/sec CCA end diastolic: 19 cm/sec ICA peak systolic: 79 cm/sec ICA end diastolic: 28 cm/sec ICA/CCA ratio: 1.2 Estimated ICA stenosis: Less than 50% ECA systolic: 95 cm/sec Vertebral: Antegrade LEFT: Plaque: Minor non-calcified and calcified plaque CCA peak systolic: 83 cm/sec CCA end diastolic: 26 cm/sec ICA peak systolic: 99 cm/sec ICA end diastolic: 42 cm/sec ICA/CCA ratio: 1.2 Estimated ICA stenosis: Less than 50% ECA systolic: 87 cm/sec Vertebral: Antegrade IMPRESSION: No hemodynamically significant internal carotid stenosis (less than 50% stenosis) on the left and right. This radiologist maintains RVT certification. Reference: Ultrasound Report Measurement of carotid stenosis is a ratio based on conventional angiographic data from the NASCET trials with the smallest caliber of the internal carotid as the numerator and normal post-stenotic internal carotid caliber as denominator. Stenosis based upon Society of Radiologists in Ultrasound consensus: <50%: ICA PS <125 cm/sec, ICA ED <40 cm/sec, ICA/CCA ratio <2.0 50-69%: ICA PS 125-230 cm/sec , ICA ED 40-100 cm/sec, ICA/CCA ratio 2-4 >70%: ICA PS >230 cm/sec, ICA ED >100 cm/sec, ICA/CCA ratio >4 Report Dictated on --- Final --- Dictating Physician: MD REGALADO JEFFREY Signed Date and Time: 10/04/2020 1:07 pm Signed by: MD REGALADO JEFFREY Transcribed Date and Time: 10/04/2020 1:08 Cardiovascular ACCESSION EXAM DATE/TIME PROCEDURE [id number] 10/04/2020 10:45 EST VL Carotid Duplex Ultrasound Complete CPT code 72783 Reason For Exam (VL Carotid Duplex Ultrasound Complete) occ of carotid art Report BILATERAL CAROTID ULTRASOUND: CLINICAL INDICATION: Vertigo and dizziness. TECHNIQUE: Two-dimensional, Color-flow and spectral Doppler sonography of the extracranial arterial circulation was performed. COMPARISON: None. FINDINGS: RIGHT: Plaque: Minimal plaque identified CCA peak systolic: 68 cm/sec CCA end diastolic: 19 cm/sec ICA peak systolic: 79 cm/sec ICA end diastolic: 28 cm/sec ICA/CCA ratio: 1.2 Estimated ICA stenosis: Less than 50% ECA systolic: 95 cm/sec Vertebral: Antegrade LEFT: Plaque: Minor non-calcified and calcified plaque CCA peak systolic: 83 cm/sec CCA end diastolic: 26 cm/sec Cardiovascular Report ICA peak systolic: 99 cm/sec ICA end diastolic: 42 cm/sec ICA/CCA ratio: 1.2 Estimated ICA stenosis: Less than 50% ECA systolic: 87 cm/sec Vertebral: Antegrade IMPRESSION: No hemodynamically significant internal carotid stenosis (less than 50% stenosis) on the left and right. This radiologist maintains RVT certification. Reference: Measurement of carotid stenosis is a ratio based on conventional angiographic data from the NASCET trials with the smallest caliber of the internal carotid as the numerator and normal post-stenotic internal carotid caliber as denominator. Stenosis based upon Society of Radiologists in Ultrasound consensus: <50%: ICA PS <125 cm/sec, ICA ED <40 cm/sec, ICA/CCA ratio <2.0 50-69%: ICA PS 125-230 cm/sec , ICA ED 40-100 cm/sec, ICA/CCA ratio 2-4 >70%: ICA PS >230 cm/sec, ICA ED >100 cm/sec, ICA/CCA ratio >4 Report Dictated on --- Final --- Dictating Physician: MD REGALADO JEFFREY Signed Date and Time: 10/04/2020 1:07 pm Signed by: MD REGALADO JEFFREY Transcribed Date and Time: 10/04/2020 1:08 [facility], [place] Iam, [facility] Incoming Cardiology Results From [facility] - 10/04/2020 1:08 PM EST Patient Name: [facility]ULL[facility]DOMO [facility] [id number] Ultrasound ACCESSION EXAM DATE/TIME PROCEDURE ORDERING PROVIDER [id number] 10/04/2020 10:45 EST VL Carotid Duplex MD CRISTOPHER, JEREMIAH Oleary Ultrasound Complete CPT code 46099 Reason For Exam (VL Carotid Duplex Ultrasound Complete) occ of carotid art Report BILATERAL CAROTID ULTRASOUND: CLINICAL INDICATION: Vertigo and dizziness. TECHNIQUE: Two-dimensional, Color-flow and spectral Doppler sonography of the extracranial arterial circulation was performed. COMPARISON: None. FINDINGS: RIGHT: Plaque: Minimal plaque identified CCA peak systolic: 68 cm/sec CCA end diastolic: 19 cm/sec ICA peak systolic: 79 cm/sec ICA end diastolic: 28 cm/sec ICA/CCA ratio: 1.2 Estimated ICA stenosis: Less than 50% ECA systolic: 95 cm/sec Vertebral: Antegrade LEFT: Plaque: Minor non-calcified and calcified plaque CCA peak systolic: 83 cm/sec CCA end diastolic: 26 cm/sec ICA peak systolic: 99 cm/sec ICA end diastolic: 42 cm/sec ICA/CCA ratio: 1.2 Estimated ICA stenosis: Less than 50% ECA systolic: 87 cm/sec Vertebral: Antegrade IMPRESSION: No hemodynamically significant internal carotid stenosis (less than 50% stenosis) on the left and right. This radiologist maintains RVT certification. Reference: Ultrasound Report Measurement of carotid stenosis is a ratio based on conventional angiographic data from the NASCET trials with the smallest caliber of the internal carotid as the numerator and normal post-stenotic internal carotid caliber as denominator. Stenosis based upon Society of Radiologists in Ultrasound consensus: <50%: ICA PS <125 cm/sec, ICA ED <40 cm/sec, ICA/CCA ratio <2.0 50-69%: ICA PS 125-230 cm/sec , ICA ED 40-100 cm/sec, ICA/CCA ratio 2-4 >70%: ICA PS >230 cm/sec, ICA ED >100 cm/sec, ICA/CCA ratio >4 Report Dictated on --- Final --- Dictating Physician: MD REGALADO JEFFREY Signed Date and Time: 10/04/2020 1:07 pm Signed by: MD REGALADO JEFFREY Transcribed Date and Time: 10/04/2020 1:08 Cardiovascular ACCESSION EXAM DATE/TIME PROCEDURE [id number] 10/04/2020 10:45 EST VL Carotid Duplex Ultrasound Complete CPT code 22054 Reason For Exam (VL Carotid Duplex Ultrasound Complete) occ of carotid art Report BILATERAL CAROTID ULTRASOUND: CLINICAL INDICATION: Vertigo and dizziness. TECHNIQUE: Two-dimensional, Color-flow and spectral Doppler sonography of the extracranial arterial circulation was performed. COMPARISON: None. FINDINGS: RIGHT: Plaque: Minimal plaque identified CCA peak systolic: 68 cm/sec CCA end diastolic: 19 cm/sec ICA peak systolic: 79 cm/sec ICA end diastolic: 28 cm/sec ICA/CCA ratio: 1.2 Estimated ICA stenosis: Less than 50% ECA systolic: 95 cm/sec Vertebral: Antegrade LEFT: Plaque: Minor non-calcified and calcified plaque CCA peak systolic: 83 cm/sec CCA end diastolic: 26 cm/sec Cardiovascular Report ICA peak systolic: 99 cm/sec ICA end diastolic: 42 cm/sec ICA/CCA ratio: 1.2 Estimated ICA stenosis: Less than 50% ECA systolic: 87 cm/sec Vertebral: Antegrade IMPRESSION: No hemodynamically significant internal carotid stenosis (less than 50% stenosis) on the left and right. This radiologist maintains RVT certification. Reference: Measurement of carotid stenosis is a ratio based on conventional angiographic data from the NASCET trials with the smallest caliber of the internal carotid as the numerator and normal post-stenotic internal carotid caliber as denominator. Stenosis based upon Society of Radiologists in Ultrasound consensus: <50%: ICA PS <125 cm/sec, ICA ED <40 cm/sec, ICA/CCA ratio <2.0 50-69%: ICA PS 125-230 cm/sec , ICA ED 40-100 cm/sec, ICA/CCA ratio 2-4 >70%: ICA PS >230 cm/sec, ICA ED >100 cm/sec, ICA/CCA ratio >4 Report Dictated on --- Final --- Dictating Physician: MD REGALADO JEFFREY Signed Date and Time: 10/04/2020 1:07 pm Signed by: MD REGALADO JEFFREY Transcribed Date and Time: 10/04/2020 1:08 [place], [place] CT Sinus WO Contrast Limited on 09-14-2020 Patient Name: [facility]ULL[facility]DOMO [facility] [id number] Computed Tomography ACCESSION EXAM DATE/TIME PROCEDURE ORDERING PROVIDER [id number] 09/14/2020 10:[address] Maxillofacial w/o UNASSIGNED, UNASSIGNED Contrast CPT code 63506 Reason For Exam (CT Maxillofacial w/o Contrast) sinusitis Report CT sinuses CLINICAL INDICATION: Sinusitis COMPARISON: CT facial bones 06/24/2020 Radiation dose: DLP 377 mGycm Imaging was performed from mid frontal bone through the maxilla with axial, coronal and sagittal images reconstructed. Previous nasal fracture has healed. A retention cyst is present along the inferomedial aspect of the right frontal sinus measuring about 0.8 cm. There is minimal mucoperiosteal thickening in ethmoid air cells and maxillary sinuses. There are surgical defects in the medial patton of both maxillary sinuses. Nasal septum is midline. There is focal lobulated mucosal thickening of the right inferior nasal turbinates which could represent a nasal polyp. IMPRESSION: Small right frontal retention cyst and mild ethmoid and maxillary mucoperiosteal thickening Possible polyp of the right inferior nasal turbinate Report Dictated on --- Final --- Dictating Physician: MD BAEZ DIANE Signed Date and Time: 09/14/2020 2:20 pm Signed by: MD BAEZ DIANE Transcribed Date and Time: 09/14/2020 2:21 [place], [place] Royce Vitale Incoming Radiology Results From [facility] - 09/14/2020 2:21 PM EST Patient Name: SULLY PERDOMO Computed Tomography ACCESSION EXAM DATE/TIME PROCEDURE ORDERING PROVIDER [id number] 09/14/2020 10:[address] Maxillofacial w/o UNASSIGNED, UNASSIGNED Contrast CPT code 17503 Reason For Exam (CT Maxillofacial w/o Contrast) sinusitis Report CT sinuses CLINICAL INDICATION: Sinusitis COMPARISON: CT facial bones 06/24/2020 Radiation dose: DLP 377 mGycm Imaging was performed from mid frontal bone through the maxilla with axial, coronal and sagittal images reconstructed. Previous nasal fracture has healed. A retention cyst is present along the inferomedial aspect of the right frontal sinus measuring about 0.8 cm. There is minimal mucoperiosteal thickening in ethmoid air cells and maxillary sinuses. There are surgical defects in the medial patton of both maxillary sinuses. Nasal septum is midline. There is focal lobulated mucosal thickening of the right inferior nasal turbinates which could represent a nasal polyp. IMPRESSION: Small right frontal retention cyst and mild ethmoid and maxillary mucoperiosteal thickening Possible polyp of the right inferior nasal turbinate Report Dictated on --- Final --- Dictating Physician: MD BAEZ DIANE Signed Date and Time: 09/14/2020 2:20 pm Signed by: MD BAEZ DIANE Transcribed Date and Time: 09/14/2020 2:21 [place], [place] XR CHEST (2 VW)on 08-17-2020 Patient Name: SULLY PERDOMO Diagnostic Radiology ACCESSION EXAM DATE/TIME PROCEDURE ORDERING PROVIDER [id number] 08/17/2020 11:16 EST CR Chest PA & LAT MD MARTÍNEZ RICHARD H CPT code 51071 Reason For Exam (CR Chest PA & LAT) COUGH CONGESTION Report CHEST X-RAY PA/LATERAL CLINICAL INDICATION: Right lower lobe chest pain. Sneezing, coughing and congestion. Frontal and lateral plain films of the chest were obtained. COMPARISON: 06/11/2019. FINDINGS: There are multiple areas of nodularity calcification within the right upper lobe similar in distribution to the previous exam. The largest calcified right upper lobe nodule is slightly increased in size measuring approximately a cm in diameter. There is hyperinflation of the lungs with flattened hemidiaphragms compatible with emphysema. There are coarse bilateral interstitial markings. The cardiac silhouette is within normal limits. No focal consolidation is seen within the lungs. No pleural effusion or pneumothorax is identified. There is interval acute, nondisplaced fracture of the right lateral eighth rib. Thoracic degenerative spondylosis. The osseous structures are demineralized. IMPRESSION: Interval, acute fracture of the right lateral eighth rib. Dedicated rib series may be helpful. Right upper lobe calcified granuloma, unchanged. Emphysema, unchanged. No acute consolidation or pneumothorax. A notification was communicated to JEREMIAH MARTÍNEZ via the [employer] Critical Result system on 08/17/2020 12:41 PM EST, Message ID [id number]. Report Dictated on --- Final --- Dictating Physician: ANNA ELIAS DO, I Signed Date and Time: 08/17/2020 12:41 pm Signed by: ANNA ELIAS DO, I Transcribed Date and Time: 08/17/2020 12:42 [place], [place] [facility] Vitale Incoming Radiology Results From [facility] - 08/17/2020 12:42 PM EST Patient Name: SULLY PERDOMO Diagnostic Radiology ACCESSION EXAM DATE/TIME PROCEDURE ORDERING PROVIDER [id number] 08/17/2020 11:16 EST CR Chest PA & LAT MD CRISTOPHER, JEREMIAH Oleary CPT code 62697 Reason For Exam (CR Chest PA & LAT) COUGH CONGESTION Report CHEST X-RAY PA/LATERAL CLINICAL INDICATION: Right lower lobe chest pain. Sneezing, coughing and congestion. Frontal and lateral plain films of the chest were obtained. COMPARISON: 06/11/2019. FINDINGS: There are multiple areas of nodularity calcification within the right upper lobe similar in distribution to the previous exam. The largest calcified right upper lobe nodule is slightly increased in size measuring approximately a cm in diameter. There is hyperinflation of the lungs with flattened hemidiaphragms compatible with emphysema. There are coarse bilateral interstitial markings. The cardiac silhouette is within normal limits. No focal consolidation is seen within the lungs. No pleural effusion or pneumothorax is identified. There is interval acute, nondisplaced fracture of the right lateral eighth rib. Thoracic degenerative spondylosis. The osseous structures are demineralized. IMPRESSION: Interval, acute fracture of the right lateral eighth rib. Dedicated rib series may be helpful. Right upper lobe calcified granuloma, unchanged. Emphysema, unchanged. No acute consolidation or pneumothorax. A notification was communicated to JEREMIAH MARTÍNEZ via the [employer] Critical Result system on 08/17/2020 12:41 PM EST, Message ID [id number]. Report Dictated on --- Final --- Dictating Physician: ANNA ELIAS DO, I Signed Date and Time: 08/17/2020 12:41 pm Signed by: ANNA ELIAS DO, I Transcribed Date and Time: 08/17/2020 12:42 [place], [place] CT CERVICAL SPINE SUNNY Bullock 06-24-2020 Patient Name: SULLY PERDOMO ---CT--- Exam Date/Time 06/24/2020 08:40:[address] Spine Cervical w/o Contrast Ordering Physician JHONATAN [place] Accession Number [id number] CPT4 Codes 53525 () Reason For Exam Fall. Pain Report Reasons for examination: major trauma, neck pain. Axial scans of the cervical spine are performed from the skull base to the thoracic inlet with sagittal and coronal reconstructions. There is normal alignment of the cervical vertebral bodies on the sagittal reconstructions. There is no evidence of fracture or subluxation in the cervical spine. The prevertebral soft-tissues are normal. The craniocervical junction and C1-2 junction appear normal except for anterior degenerative changes. The odontoid is intact. Degenerative disc disease changes are seen at C4-5, C5-6, and C6-7 and C7- T1. IMPRESSION: CT CERVICAL SPINE 1. No evidence of cervical spine fracture or dislocation. 2. Degenerative changes, as described above. 3. Bullous emphysema both lung apices with prior surgeries/calcificati ons right apex Axial high resolution unenhanced scans of the facial bones were obtained, with bone window and soft tissue windows filmed. There is no evidence of facial or orbital fracture. The maxilla, maxillary sinuses, and orbital patton are intact. The zygomatic arches are intact. The nasal bones are fractured. The mandible is intact, and the condyles are properly located. The craniocervical junction is intact. There is no evidence of orbital hematoma. There is no intracranial or orbital emphysema. Skull base is intact. The mastoids are well pneumatized. IMPRESSION: CT FACIAL BONES 1. Fracture nasal bones with no other evidence of craniofacial or orbital fracture. 2. Scattered mucosal thickening paranasal sinuses with possible fluid and retention cysts in some areas-there appears to have been prior surgery with left nasal antral window and partial ethmoidectomy. 3. Calcified plaquing carotid bifurcations left greater than right. Calcified plaquing carotid siphons. 4. Few dental caries with periodontal disease Report Dictated on --- Final --- Dictating Physician: MD LANDON WILLIAM Signed Date and Time: 06/24/2020 9:06 am Signed by: MD LANDON WILLIAM Transcribed Date and Time: 06/24/2020 9:07 [place], [place] [facility], [facility] Incoming Radiology Results From [facility] - 06/24/2020 9:08 AM EDT Patient Name: SULLY PERDOMO ---CT--- Exam Date/Time 06/24/2020 08:40:[address] Spine Cervical w/o Contrast Ordering Physician JHONATAN MO Accession Number [id number] CPT4 Codes 39349 () Reason For Exam Fall. Pain Report Reasons for examination: major trauma, neck pain. Axial scans of the cervical spine are performed from the skull base to the thoracic inlet with sagittal and coronal reconstructions. There is normal alignment of the cervical vertebral bodies on the sagittal reconstructions. There is no evidence of fracture or subluxation in the cervical spine. The prevertebral soft-tissues are normal. The craniocervical junction and C1-2 junction appear normal except for anterior degenerative changes. The odontoid is intact. Degenerative disc disease changes are seen at C4-5, C5-6, and C6-7 and C7- T1. IMPRESSION: CT CERVICAL SPINE 1. No evidence of cervical spine fracture or dislocation. 2. Degenerative changes, as described above. 3. Bullous emphysema both lung apices with prior surgeries/calcificati ons right apex Axial high resolution unenhanced scans of the facial bones were obtained, with bone window and soft tissue windows filmed. There is no evidence of facial or orbital fracture. The maxilla, maxillary sinuses, and orbital patton are intact. The zygomatic arches are intact. The nasal bones are fractured. The mandible is intact, and the condyles are properly located. The craniocervical junction is intact. There is no evidence of orbital hematoma. There is no intracranial or orbital emphysema. Skull base is intact. The mastoids are well pneumatized. IMPRESSION: CT FACIAL BONES 1. Fracture nasal bones with no other evidence of craniofacial or orbital fracture. 2. Scattered mucosal thickening paranasal sinuses with possible fluid and retention cysts in some areas-there appears to have been prior surgery with left nasal antral window and partial ethmoidectomy. 3. Calcified plaquing carotid bifurcations left greater than right. Calcified plaquing carotid siphons. 4. Few dental caries with periodontal disease Report Dictated on --- Final --- Dictating Physician: MD LANDON WILLIAM Signed Date and Time: 06/24/2020 9:06 am Signed by: MD LANDON WILLIAM Transcribed Date and Time: 06/24/2020 9:07 [place], [place] CT FACIAL BONES WO VIMALo sole 06-24-2020 Patient Name: SULLY PERDOMO ---CT--- Exam Date/Time 06/24/2020 08:40:[address] Maxillofacial w/o Contrast Ordering Physician JHONATAN MO Accession Number [id number] CPT4 Codes 47647 () Reason For Exam Fall with nasal injury Report Reasons for examination: major trauma, neck pain. Axial scans of the cervical spine are performed from the skull base to the thoracic inlet with sagittal and coronal reconstructions. There is normal alignment of the cervical vertebral bodies on the sagittal reconstructions. There is no evidence of fracture or subluxation in the cervical spine. The prevertebral soft-tissues are normal. The craniocervical junction and C1-2 junction appear normal except for anterior degenerative changes. The odontoid is intact. Degenerative disc disease changes are seen at C4-5, C5-6, and C6-7 and C7- T1. IMPRESSION: CT CERVICAL SPINE 1. No evidence of cervical spine fracture or dislocation. 2. Degenerative changes, as described above. 3. Bullous emphysema both lung apices with prior surgeries/calcificati ons right apex Axial high resolution unenhanced scans of the facial bones were obtained, with bone window and soft tissue windows filmed. There is no evidence of facial or orbital fracture. The maxilla, maxillary sinuses, and orbital patton are intact. The zygomatic arches are intact. The nasal bones are fractured. The mandible is intact, and the condyles are properly located. The craniocervical junction is intact. There is no evidence of orbital hematoma. There is no intracranial or orbital emphysema. Skull base is intact. The mastoids are well pneumatized. IMPRESSION: CT FACIAL BONES 1. Fracture nasal bones with no other evidence of craniofacial or orbital fracture. 2. Scattered mucosal thickening paranasal sinuses with possible fluid and retention cysts in some areas-there appears to have been prior surgery with left nasal antral window and partial ethmoidectomy. 3. Calcified plaquing carotid bifurcations left greater than right. Calcified plaquing carotid siphons. 4. Few dental caries with periodontal disease Report Dictated on --- Final --- Dictating Physician: MD LANDON WILLIAM Signed Date and Time: 06/24/2020 9:06 am Signed by: MD LANDON WILLIAM Transcribed Date and Time: 06/24/2020 9:07 [place], [place] Iam, [facility] Incoming Radiology Results From [facility] - 06/24/2020 9:07 AM EDT Patient Name: SULLY PERDOMO ---CT--- Exam Date/Time 06/24/2020 08:40:[address] Maxillofacial w/o Contrast Ordering Physician JHONATAN MO Accession Number [id number] CPT4 Codes 84099 () Reason For Exam Fall with nasal injury Report Reasons for examination: major trauma, neck pain. Axial scans of the cervical spine are performed from the skull base to the thoracic inlet with sagittal and coronal reconstructions. There is normal alignment of the cervical vertebral bodies on the sagittal reconstructions. There is no evidence of fracture or subluxation in the cervical spine. The prevertebral soft-tissues are normal. The craniocervical junction and C1-2 junction appear normal except for anterior degenerative changes. The odontoid is intact. Degenerative disc disease changes are seen at C4-5, C5-6, and C6-7 and C7- T1. IMPRESSION: CT CERVICAL SPINE 1. No evidence of cervical spine fracture or dislocation. 2. Degenerative changes, as described above. 3. Bullous emphysema both lung apices with prior surgeries/calcificati ons right apex Axial high resolution unenhanced scans of the facial bones were obtained, with bone window and soft tissue windows filmed. There is no evidence of facial or orbital fracture. The maxilla, maxillary sinuses, and orbital patton are intact. The zygomatic arches are intact. The nasal bones are fractured. The mandible is intact, and the condyles are properly located. The craniocervical junction is intact. There is no evidence of orbital hematoma. There is no intracranial or orbital emphysema. Skull base is intact. The mastoids are well pneumatized. IMPRESSION: CT FACIAL BONES 1. Fracture nasal bones with no other evidence of craniofacial or orbital fracture. 2. Scattered mucosal thickening paranasal sinuses with possible fluid and retention cysts in some areas-there appears to have been prior surgery with left nasal antral window and partial ethmoidectomy. 3. Calcified plaquing carotid bifurcations left greater than right. Calcified plaquing carotid siphons. 4. Few dental caries with periodontal disease Report Dictated on --- Final --- Dictating Physician: MD LANDON WILLIAM Signed Date and Time: 06/24/2020 9:06 am Signed by: MD LANDON WILLIAM Transcribed Date and Time: 06/24/2020 9:07 [place], [place] CT HEAD WO CONTRASTon 2019 Patient Name: SULLY PERDOMO ---CT--- Exam Date/Time 06/24/2020 08:40:[address] Head or Brain w/o Contrast Ordering Physician JHONATAN MO Accession Number [id number] CPT4 Codes 43896 () Reason For Exam Fall. Head injury. Intoxicated Report CT HEAD WITHOUT CONTRAST: CLINICAL INDICATION: Fall. Facial swelling and pain. Headache. Intoxicated. COMPARISON: 04/11/2018. TECHNIQUE: [address] images through the brain. Sagittal and coronal reformatted images provided. FINDINGS: Ventricles and extra-axial spaces: Cerebral ventricles and sulci are normal in size and configuration. No extra-axial fluid collection. Cerebral and cerebellar parenchyma: No abnormal areas of decreased or increased parenchymal density. No mass, mass effect or acute cortical infarct. Hemorrhage: None. Brainstem: Normal. Visualized paranasal sinuses: Dependent left maxillary sinus fluid or mucosal thickening is seen. Mastoid air cells: Normal. Visualized orbits: Normal. Calvarium and skull base: Normal. Other: Bilateral nasal bone fractures with nasal soft tissue swelling is observed. There is fluid within the bilateral nasal cavity. IMPRESSION: No acute intracranial process. Bilateral nasal bone fractures with nasal soft tissue swelling. Left maxillary sinus fluid/mucosal thickening. Report Dictated on --- Final --- Dictating Physician: ANNA ELIAS DO, I Signed Date and Time: 06/24/2020 8:56 am Signed by: ANNA ELIAS DO, I Transcribed Date and Time: 06/24/2020 8:57 [place], [place] [facility], [facility] Incoming Radiology Results From [facility] - 06/24/2020 8:58 AM EDT Patient Name: SULLY PERDOMO ---CT--- Exam Date/Time 06/24/2020 08:40:[address] Head or Brain w/o Contrast Ordering Physician JHONATAN MO Accession Number [id number] CPT4 Codes 62063 () Reason For Exam Fall. Head injury. Intoxicated Report CT HEAD WITHOUT CONTRAST: CLINICAL INDICATION: Fall. Facial swelling and pain. Headache. Intoxicated. COMPARISON: 04/11/2018. TECHNIQUE: [address] images through the brain. Sagittal and coronal reformatted images provided. FINDINGS: Ventricles and extra-axial spaces: Cerebral ventricles and sulci are normal in size and configuration. No extra-axial fluid collection. Cerebral and cerebellar parenchyma: No abnormal areas of decreased or increased parenchymal density. No mass, mass effect or acute cortical infarct. Hemorrhage: None. Brainstem: Normal. Visualized paranasal sinuses: Dependent left maxillary sinus fluid or mucosal thickening is seen. Mastoid air cells: Normal. Visualized orbits: Normal. Calvarium and skull base: Normal. Other: Bilateral nasal bone fractures with nasal soft tissue swelling is observed. There is fluid within the bilateral nasal cavity. IMPRESSION: No acute intracranial process. Bilateral nasal bone fractures with nasal soft tissue swelling. Left maxillary sinus fluid/mucosal thickening. Report Dictated on --- Final --- Dictating Physician: ANNA ELIAS DO, I Signed Date and Time: 06/24/2020 8:56 am Signed by: ANNA ELIAS DO, I Transcribed Date and Time: 06/24/2020 8:57 [place] XR CLAVICLE RIGHTon 11-08-19 Patient Name: SULLY PERDOMO ---Diagnostic Radiology--- Exam Date/Time 11/08/2019 12:55:00 EST Exam CR Clavicle Complete Right Ordering Physician MD MARTÍNEZ RICHARD H Accession Number [id number] CPT4 Codes 71505 () Reason For Exam rt shoulder pain Report Right clavicle: 11/08/2019. CLINICAL INFORMATION: Pain. FINDINGS: Views of the right clavicle reveal the bones to be well mineralized. There is no evidence of fracture. There is widening of the acromioclavicular joint to approximately 1.4 cm. The findings are similar to a view of the right shoulder 07/12/2018 and there appears to have been a resection of the distal right clavicle. Report Dictated on --- Final --- Dictating Physician: MD SHETTY RISA Signed Date and Time: 11/08/2019 1:19 pm Signed by: MD SHETTY RISA Transcribed Date and Time: 11/08/2019 1:20 [place], [place] [facility], [facility] Incoming Radiology Results From [facility] - 11/08/2019 1:20 PM EST Patient Name: SULLY PERDOMO ---Diagnostic Radiology--- Exam Date/Time 11/08/2019 12:55:00 EST Exam CR Clavicle Complete Right Ordering Physician MD MARTÍNEZ RICHARD H Accession Number [id number] CPT4 Codes 96245 () Reason For Exam rt shoulder pain Report Right clavicle: 11/08/2019. CLINICAL INFORMATION: Pain. FINDINGS: Views of the right clavicle reveal the bones to be well mineralized. There is no evidence of fracture. There is widening of the acromioclavicular joint to approximately 1.4 cm. The findings are similar to a view of the right shoulder 07/12/2018 and there appears to have been a resection of the distal right clavicle. Report Dictated on --- Final --- Dictating Physician: MD SHETTY RISA Signed Date and Time: 11/08/2019 1:19 pm Signed by: MD SHETTY RISA Transcribed Date and Time: 11/08/2019 1:20 [employer] XR KNEE RIGHT (MIN 4 VIEWS)o n 11-08-2019 Patient Name: SULLY PERDOMO ---Diagnostic Radiology--- Exam Date/Time 11/08/2019 12:55:00 EST Exam CR Knee Complete 4+ Views Right Ordering Physician MD CRISTOPHER, JEREMIAH Oleary Accession Number [id number] CPT4 Codes 92885 () Reason For Exam rt knee pain Report RIGHT KNEE CLINICAL INDICATION: Pain AP, lateral, tunnel, and patellar plain film views of the right knee were obtained. COMPARISON: Right knee radiographs on 04/01/2018 FINDINGS: No fracture or dislocation of the right knee is identified. No joint effusion is seen on the lateral view. There is a 1.2 x 1.2 x 1.9 cm calcified loose body within the posterior joint recess, similar to prior. This is not a typical location of a fabella. There is joint space narrowing with osteophytic spurring within the medial and patellofemoral compartments. Vascular atherosclerotic calcifications. IMPRESSION: Redemonstration of a 1.9 cm calcified body within the posterior joint recess. 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 Vascular atherosclerotic calcifications. Report Dictated on --- Final --- Dictating Physician: MD SULTANA NEIL Signed Date and Time: 11/08/2019 1:45 pm Signed by: MD SULTANA NEIL Transcribed Date and Time: 11/08/2019 1:46 [place] [facility], [facility] Incoming Radiology Results From [facility] - 11/08/2019 1:46 PM EST Patient Name: SULLY PERDOMO ---Diagnostic Radiology--- Exam Date/Time 11/08/2019 12:55:00 EST Exam CR Knee Complete 4+ Views Right Ordering Physician MD MARTÍNEZ RICHARD H Accession Number [id number] CPT4 Codes 39208 () Reason For Exam rt knee pain Report RIGHT KNEE CLINICAL INDICATION: Pain AP, lateral, tunnel, and patellar plain film views of the right knee were obtained. COMPARISON: Right knee radiographs on 04/01/2018 FINDINGS: No fracture or dislocation of the right knee is identified. No joint effusion is seen on the lateral view. There is a 1.2 x 1.2 x 1.9 cm calcified loose body within the posterior joint recess, similar to prior. This is not a typical location of a fabella. There is joint space narrowing with osteophytic spurring within the medial and patellofemoral compartments. Vascular atherosclerotic calcifications. IMPRESSION: Redemonstration of a 1.9 cm calcified body within the posterior joint recess. 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 Vascular atherosclerotic calcifications. Report Dictated on --- Final --- Dictating Physician: MD SULTANA NEIL Signed Date and Time: 11/08/2019 1:45 pm Signed by: MD SULTANA NEIL Transcribed Date and Time: 11/08/2019 1:46 [place] XR Shoulder Right 2 VWon Patient Name: SULLY PERDOMO ---Diagnostic Radiology--- Exam Date/Time 11/08/2019 12:55:00 EST Exam CR Shoulder 2+ Views Right Ordering Physician MD MARTÍNEZ RICHARD H Accession Number [id number] CPT4 Codes 87546 () Reason For Exam rt shoulder pain Report Right shoulder: 11/08/2019. Clinical Information: Pain after fall. Findings: 3 views of the right shoulder reveal the bones to be well mineralized. There is no evidence of fracture or dislocation. There is mild narrowing of the glenohumeral joint and subacromial space consistent with rotator cuff degeneration. There is widening of the acromioclavicular joint, better seen on the views of the right clavicle. IMPRESSION: No acute abnormalities identified. Report Dictated on --- Final --- Dictating Physician: MD SHETTY RISA Signed Date and Time: 11/08/2019 1:17 pm Signed by: MD SHETTY RISA Transcribed Date and Time: 11/08/2019 1:18 [facility], [place] [facility], [facility] Incoming Radiology Results From [facility] - 11/08/2019 1:18 PM EST Patient Name: SULLY PERDOMO ---Diagnostic Radiology--- Exam Date/Time 11/08/2019 12:55:00 EST Exam CR Shoulder 2+ Views Right Ordering Physician MD CRISTOPHER, JEREMIAH Oleary Accession Number [id number] CPT4 Codes 93440 () Reason For Exam rt shoulder pain Report Right shoulder: 11/08/2019. Clinical Information: Pain after fall. Findings: 3 views of the right shoulder reveal the bones to be well mineralized. There is no evidence of fracture or dislocation. There is mild narrowing of the glenohumeral joint and subacromial space consistent with rotator cuff degeneration. There is widening of the acromioclavicular joint, better seen on the views of the right clavicle. IMPRESSION: No acute abnormalities identified. Report Dictated on --- Final --- Dictating Physician: MD SHETTY RISA Signed Date and Time: 11/08/2019 1:17 pm Signed by: MD SHETTY RISA Transcribed Date and Time: 11/08/2019 1:18 [facility], [place] CR Hip w/ Pelvis 2 or 3 View s Righton 2019 CR Hip w/ Pelvis 2 or 3 Views Right Patient Name: SULLY PERDOMO Diagnostic Radiology Exam Date/Time 2019 09:06:38 EST Exam CR Hip w/ Pelvis 2 or 3 Views Right n Ordering Physician MD DEZ, NILESH Ibrahim Accession Number [id number] CPT4 Codes 23053 () Reason For Exam PAIN Report RIGHT HIP CLINICAL INDICATION: Right hip pain A single AP view of the pelvis followed by AP and lateral views of the right hip were obtained. COMPARISON: 06/22/2019 FINDINGS: No acute fracture or dislocation of the pelvis or right hip is identified. Intramedullary key traversing the proximal right femur is again noted, with interlocking screws through the femoral neck and proximal femoral diaphysis. Hardware appears intact. Alignment is anatomic. There are mild degenerative changes of the bilateral hip joints. No fracture of the bony pelvis is seen. There are scattered vascular calcification. IMPRESSION: Metallic fixation hardware within the right hip appears intact. Alignment is anatomic. Report Dictated on Final Dictated: 2019 2:48 pm Dictating Physician: MD SAMANO JONATHAN R Signed Date and Time: 2019 2:50 pm Signed by: MD SAMANO JONATHAN R Transcribed Date and Time: 2019 2:48 Normal [facility] XR HIP RIGHT (2-3 VIEWS)on 09-19-2018 Patient Name: SULLY PERDOMO ---Diagnostic Radiology--- Exam Date/Time 2019 09:06:38 EST Exam CR Hip w/ Pelvis 2 or 3 Views Right n Ordering Physician MD GARCES SALVATORE J Accession Number [id number] CPT4 Codes 17649 () Reason For Exam PAIN Report RIGHT HIP CLINICAL INDICATION: Right hip pain A single AP view of the pelvis followed by AP and lateral views of the right hip were obtained. COMPARISON: 06/22/2019 FINDINGS: No acute fracture or dislocation of the pelvis or right hip is identified. Intramedullary key traversing the proximal right femur is again noted, with interlocking screws through the femoral neck and proximal femoral diaphysis. Hardware appears intact. Alignment is anatomic. There are mild degenerative changes of the bilateral hip joints. No fracture of the bony pelvis is seen. There are scattered vascular calcification. IMPRESSION: Metallic fixation hardware within the right hip appears intact. Alignment is anatomic. Report Dictated on --- Final --- Dictated: 2019 2:48 pm Dictating Physician: MD SAMANO JONATHAN R Signed Date and Time: 2019 2:50 pm Signed by: MD SAMANO JONATHAN R Transcribed Date and Time: 2019 2:48 [place] [facility], [facility] Incoming Radiology Results From [facility] - 2019 2:51 PM EST Patient Name: SULLY PERDOMO ---Diagnostic Radiology--- Exam Date/Time 2019 09:06:38 EST Exam CR Hip w/ Pelvis 2 or 3 Views Right n Ordering Physician MD GARCES SALVATORE J Accession Number [id number] CPT4 Codes 06068 () Reason For Exam PAIN Report RIGHT HIP CLINICAL INDICATION: Right hip pain A single AP view of the pelvis followed by AP and lateral views of the right hip were obtained. COMPARISON: 06/22/2019 FINDINGS: No acute fracture or dislocation of the pelvis or right hip is identified. Intramedullary key traversing the proximal right femur is again noted, with interlocking screws through the femoral neck and proximal femoral diaphysis. Hardware appears intact. Alignment is anatomic. There are mild degenerative changes of the bilateral hip joints. No fracture of the bony pelvis is seen. There are scattered vascular calcification. IMPRESSION: Metallic fixation hardware within the right hip appears intact. Alignment is anatomic. Report Dictated on --- Final --- Dictated: 2019 2:48 pm Dictating Physician: MD SAMANO JONATHAN R Signed Date and Time: 2019 2:50 pm Signed by: MD SAMANO JONATHAN R Transcribed Date and Time: 2019 2:48 [facility], [place] CR Hip w/ Pelvis 2 or 3 View s Righton 06-22-2019 CR Hip w/ Pelvis 2 or 3 Views Right Patient Name: SULLY PERDOMO Diagnostic Radiology Exam Date/Time 06/22/2019 10:46:02 EDT Exam CR Hip w/ Pelvis 2 or 3 Views Right n Ordering Physician MD GARCES SALVATORE J Accession Number [id number] CPT4 Codes 37296 () Reason For Exam closed displaced interchanteric fracture of right femur with routine healing Report Examination: AP pelvis and two views right hip Indication: closed displaced intertrochanteric fracture of right femur with routine healing Findings: There is a short intramedullary key fixating the right hip. There are two screws extending into the femoral head. Distal interlocking screw is present at the level of the proximal femoral diaphysis. Intertrochanteric hip fracture is partially visualized. Overlying surgical skin mina are present. There is mild degenerative changes of the hips and mild degenerative disc disease of the lower lumbar spine. The soft tissues are grossly unremarkable. Impression: Orthopedic fixation of the right hip. Report Dictated on Final Dictated: 06/22/2019 1:15 pm Dictating Physician: MD MONTANO KRIKOR Signed Date and Time: 06/22/2019 1:17 pm Signed by: MD MONTANO KRIKOR Transcribed Date and Time: 06/22/2019 1:15 Normal [facility] XR HIP RIGHT (2-3 VIEWS)on 1 Patient Name: SULLY PERDOMO ---Diagnostic Radiology--- Exam Date/Time 06/22/2019 10:46:02 EDT Exam CR Hip w/ Pelvis 2 or 3 Views Right n Ordering Physician MD GARCES SALVATORE J Accession Number [id number] CPT4 Codes 95428 () Reason For Exam closed displaced interchanteric fracture of right femur with routine healing Report Examination: AP pelvis and two views right hip Indication: closed displaced intertrochanteric fracture of right femur with routine healing Findings: There is a short intramedullary key fixating the right hip. There are two screws extending into the femoral head. Distal interlocking screw is present at the level of the proximal femoral diaphysis. Intertrochanteric hip fracture is partially visualized. Overlying surgical skin mina are present. There is mild degenerative changes of the hips and mild degenerative disc disease of the lower lumbar spine. The soft tissues are grossly unremarkable. Impression: Orthopedic fixation of the right hip. Report Dictated on --- Final --- Dictated: 06/22/2019 1:15 pm Dictating Physician: MD MONTANO KRIKOR Signed Date and Time: 06/22/2019 1:17 pm Signed by: MD MONTANO KRIKOR Transcribed Date and Time: 06/22/2019 1:15 [place] [facility], [facility] Incoming Radiology Results From [facility] - 06/22/2019 1:18 PM EDT Patient Name: SULLY PERDOMO ---Diagnostic Radiology--- Exam Date/Time 06/22/2019 10:46:02 EDT Exam CR Hip w/ Pelvis 2 or 3 Views Right n Ordering Physician MD GARCES SALVATORE J Accession Number [id number] CPT4 Codes 75556 () Reason For Exam closed displaced interchanteric fracture of right femur with routine healing Report Examination: AP pelvis and two views right hip Indication: closed displaced intertrochanteric fracture of right femur with routine healing Findings: There is a short intramedullary key fixating the right hip. There are two screws extending into the femoral head. Distal interlocking screw is present at the level of the proximal femoral diaphysis. Intertrochanteric hip fracture is partially visualized. Overlying surgical skin imna are present. There is mild degenerative changes of the hips and mild degenerative disc disease of the lower lumbar spine. The soft tissues are grossly unremarkable. Impression: Orthopedic fixation of the right hip. Report Dictated on --- Final --- Dictated: 06/22/2019 1:15 pm Dictating Physician: MD MONTANO KRIKOR Signed Date and Time: 06/22/2019 1:17 pm Signed by: MD MONTANO KRIKOR Transcribed Date and Time: 06/22/2019 1:15 [place], [place] CBCon 06-13-2019 Erythrocyte distribution width (RBC) [Ratio] 14.7 % High 11.5 - 14.5 % [place] Hematocrit (Bld) [Volume fraction] 32.6 % Low 35 - 47 % [place] Hemoglobin (Bld) [Mass/Vol] 11.0 g/dL Low 11.7 - 16 g/dL [place] Interpretation and review of laboratory results Abnormal [place] MCH (RBC) [Entitic mass] 32.5 pg 26 - 34 pg [place] MCHC (RBC) [Mass/Vol] 33.8 % 32 - 36 % [place], [place] MCV (RBC) [Entitic vol] 96.3 fL 79 - 98 fL [place] Platelet mean volume (Bld) [Entitic vol] 6.5 fL Low 7.4 - 10.4 fL [place], [place] Platelets (Bld) [#/Vol] 276 10*3/uL 140 - 440 10*3/uL [place] RBC (Bld) [#/Vol] 3.39 10*6/uL Low 3.8 - 5.2 10*6/uL [place] WBC (Bld) [#/Vol] 10.6 10*3/uL 3.6 - 10.7 10*3/uL [place] Test Performed by [facility], [address] [place], [place] [address] [place], [place] CBC Auto Differentialon 10-0 6-2019 Absolute Baso # 0.1 10*3/uL 0 - 0.2 10*3/uL [place] Absolute Neut # 8.8 10*3/uL High 1.8 - 7 10*3/uL [place], [place] Basophils/100 WBC (Bld) 0.5 % 0 - 2 % [place] Eosinophils (Bld) [#/Vol] 0.0 10*3/uL 0 - 0.5 10*3/uL [place] Eosinophils/100 WBC (Bld) 0.0 % Low 1 - 6 % [place] Erythrocyte distribution width (RBC) [Ratio] 14.4 % 11.5 - 14.5 % [place] Granulocytes/100 WBC (Bld) 79.3 % 40 - 80 % [place] Hematocrit (Bld) [Volume fraction] 32.3 % Low 35 - 47 % [place] Hemoglobin (Bld) [Mass/Vol] 10.9 g/dL Low 11.7 - 16 g/dL [place] Interpretation and review of laboratory results Abnormal [place] Lymphocytes (Bld) [#/Vol] 1.2 10*3/uL 1 - 4.3 10*3/uL [place] Lymphocytes/100 WBC (Bld) 11.1 % Low 20 - 40 % [place] MCH (RBC) [Entitic mass] 32.3 pg 26 - 34 pg [place] MCHC (RBC) [Mass/Vol] 33.8 % 32 - 36 % [place] MCV (RBC) [Entitic vol] 95.5 fL 79 - 98 fL [place], [place] Monocytes (Bld) [#/Vol] 1.0 10*3/uL High 0 - 0.8 10*3/uL [place], [place] Monocytes/100 WBC (Bld) 9.1 % 2 - 10 % [place], [place] Platelet mean volume (Bld) [Entitic vol] 6.5 fL Low 7.4 - 10.4 fL [place], [place] Platelets (Bld) [#/Vol] 258 10*3/uL 140 - 440 10*3/uL [place] RBC (Bld) [#/Vol] 3.38 10*6/uL Low 3.8 - 5.2 10*6/uL [place] WBC (Bld) [#/Vol] 11.2 10*3/uL High 3.6 - 10.7 10*3/uL [place] Test [email or web address], [address] 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 : 1955 Requested By: [employer] ED Order Number: [id number] Bobby MD: Idania Salazar Measurements Intervals [place] Rate: 83 P: 67 NH: 172 QRS: 37 QRSD: 118 T: -67 QT: 420 QTc: 494 Interpretive Statements SINUS RHYTHM INCOMPLETE RIGHT BUNDLE BRANCH BLOCK Compared to ECG 11/18/2017 03:15:50 Incomplete right bundle-branch block now present T-wave abnormality no longer present Electronically Signed On 06-12-2019 7:28:11 EDT by Idania Salazar [place], [place] Iam, [facility] Incoming Cardiology Results From [facility] - 06/12/2019 7:29 AM EDT [email or web address] [facility] Test Date: 2019-06-11 Pat Name: Sully Perdomo Department: 2AED Room: 154 Gender: F 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: HC : 1955 Requested By: [facility] ED Order Number: [id number] Reading MD: Idania Salazar Measurements Intervals [place] Rate: 83 P: 67 NH: 172 QRS: 37 QRSD: 118 T: -67 QT: 420 QTc: 494 Interpretive Statements SINUS RHYTHM INCOMPLETE RIGHT BUNDLE BRANCH BLOCK Compared to ECG 11/18/2017 03:15:50 Incomplete right bundle-branch block now present T-wave abnormality no longer present Electronically Signed On 06-12-2019 7:28:11 EDT by Idania Salazar [place], [place] APTTon 06-11-2019 aPTT Coag (Bld) [Time] 24.3 s 20 - 30.5 s M [place], [place] Comment on above: NOTE: The therapeuti c time for Heparin anticoagulation, based on Xa activity inhibition, is an APTT of 46-80 seconds. Comprehensive Metabolic Pane ruben 06-11-2019 Albumin [Mass/Vol] 4.8 g/dL 3.5 - 5 g/dL [place], [place] ALP [Catalytic activity/Vol] 66 U/L 38 - 126 U/L [place] ALT [Catalytic activity/Vol] 31 U/L 13 - 69 U/L [place] Anion gap [Moles/Vol] 10 mmol/L [place], [place] AST [Catalytic activity/Vol] 32 U/L 15 - 46 U/L [place] Bilirubin Ql (U) 0.5 mg/dL 0.2 - 1.3 mg/dL [place] Calcium [Mass/Vol] 9.2 mg/dL 8.4 - 10. 4 mg/dL [place] Chloride [Moles/Vol] 107 mmol/L 98 - 10 7 mmol/L [place] CO2 [Moles/Vol] 23 mmol/L 22 - 30 mmol/L [place] Creatinine [Mass/Vol] 0.65 mg/dL 0.52 - 1.25 mg/dL [place] EGFR IF NonAfrican [place]ian >60.0 >60 mL/min [place], [place] Comment on above: Source- MDRD equatio n with creatinine calibration to IDMS(NKDEP) eGFR not recommended for drug dose adjustment GFR/1.73 sq M predicted among blacks MDRD (S/P/Bld) [Vol rate/Area] mL/min/{1.73_m2} >60 mL/min [place], [place] Glucose [Mass/Vol] 113 mg/dL High 70 - 100 mg/dL [place] Interpretation and review of laboratory results Abnormal [place] Potassium [Moles/Vol] 3.7 mmol/L 3.5 - 5.1 mmol/L [place] Protein [Mass/Vol] 8.4 g/dL High 6.3 - 8.2 g/dL [place] Sodium [Moles/Vol] 140 mmol/L 135 - 145 mmol/L [place], [place] Urea nitrogen [Mass/Vol] 12 mg/dL 7 - 20 mg/dL [place] Test Performed by [email or web address] [facility], [address], [place], [place] [address] [place], [place] Hemogram (CBC) w/Auto Diffon 06-11-2019 Absolute Baso # 0.1 10*3/uL 0 - 0.2 10*3/uL [place] Absolute Neut # 10.0 10*3/uL High 1.8 - 7 10*3/uL [place] Basophils/100 WBC (Bld) 0.6 % 0 - 2 % [place] Eosinophils (Bld) [#/Vol] 0.1 10*3/uL 0 - 0.5 10*3/uL [place] Eosinophils/100 WBC (Bld) 0.8 % Low 1 - 6 % [place] Erythrocyte distribution width (RBC) [Ratio] 14.9 % High 11.5 - 14.5 % [place], [place] Granulocytes/100 WBC (Bld) 80.0 % 40 - 80 % [place] Hematocrit (Bld) [Volume fraction] 41.0 % 35 - 47 % [place] Hemoglobin (Bld) [Mass/Vol] 14.0 g/dL 11.7 - 16 g/dL [place] Interpretation and review of laboratory results Abnormal [place] Lymphocytes (Bld) [#/Vol] 1.8 10*3/uL 1 - 4.3 10*3/uL [place] Lymphocytes/100 WBC (Bld) 14.7 % Low 20 - 40 % [place] MCH (RBC) [Entitic mass] 32.6 pg 26 - 34 pg [place] MCHC (RBC) [Mass/Vol] 34.2 % 32 - 36 % [place] MCV (RBC) [Entitic vol] 95.4 fL 79 - 98 fL [place], [place] Monocytes (Bld) [#/Vol] 0.5 10*3/uL 0 - 0.8 10*3/uL [place], [place] Monocytes/100 WBC (Bld) 3.9 % 2 - 10 % [place] Platelet mean volume (Bld) [Entitic vol] 6.1 fL Low 7.4 - 10.4 fL [place], [place] Platelets (Bld) [#/Vol] 320 10*3/uL 140 - 440 10*3/uL [place] RBC (Bld) [#/Vol] 4.30 10*6/uL 3.8 - 5.2 10*6/uL [place], [place] WBC (Bld) [#/Vol] 12.5 10*3/uL High 3.6 - 10.7 10*3/uL [place], [place] Test Performed by [employer] [facility], [address] [place] [address]. [place], [place] [id number] [place], [place] Otheron 06-11-2019 Test Performed by [facility], [address] [place] [address] [place], [place] Protime-INRon 06-11-2019 INR Coag (PPP) [Relative time] 1.0 {INR} [place], [place] Comment on above: Recommended Anticoag ulant Therapy: SEE BELOW ----- INR of 2.0 - 3.0 : - Prophylaxis of Venous Thrombosis (high-risk surgery) - Treatment of Venous Thrombosis - Treatment of Pulmonary Embolism (Includes tissue heart valves, Acute Myocardial Infarction to prevent systemic embolism, Valvular Heart Disease, and Atrial Fibrillation) ----- INR of 2.5 - 3.5 : - Mechanical Prosthetic Valves (high risk) - If oral anticoagulant therapy is used to prevent Myocardial Infarction PT Coag (PPP) [Time] 10.2 s 9 - 12 s [place], [place] Comment on above: . TYPE AND SCREENon 06-11-2019 Sodium [Moles/Vol] AB [place], [place] Sodium [Moles/Vol] Positive [place], [place] Comment on above: Test Performed by [facility], [address], [place], [place] [address] Sodium [Moles/Vol] Negative [place], [place] Comment on above: Test Performed by [facility], [address], [place], [place] [address] Test Performed by [facility], [address], [place], [place] [address] [place], [place] Troponin x1on 06-11-2019 Troponin I.cardiac [Mass/Vol] ng/mL 0 - 0.034 ng/mL [place], [place] Comment on above: . Test Performed by [facility], [address] [place], [place] [address] [place], [place] XR CHEST 1 VWon 06-11-2019 Patient Name: SULLY PERDOMO ---Diagnostic Radiology--- Exam Date/Time 06/11/2019 02:36:59 EDT Exam CR Chest 1 View Frontal Ordering Physician CHARLENE LINDSEY Accession Number [id number] CPT4 Codes 75356 () Reason For Exam pre op Report PORTABLE CHEST: INDICATION: Preop COMPARISON: 05/03/2019 Obtained at 0232 hours. A single portable AP radiograph of the chest was obtained. The heart is normal in size. The mediastinal silhouette is normal. Chronic interstitial changes are present. There are multiple areas of nodular scarring seen involving the right mid to upper lung field. No effusions are appreciated. There is no pleural thickening. The osseous structures are unremarkable. IMPRESSION: Running changes. No acute process. Report Dictated on Workstation: [id number] --- Final --- Dictating Physician: DO RAO ALFRED Signed Date and Time: 06/11/2019 2:54 am Signed by: DO RAO ALFRED Transcribed Date and Time: 06/11/2019 2:56 [place], [place] I[facility], [facility] Incoming Radiology Results From [facility] - 06/11/2019 2:56 AM EDT Patient Name: SULLY PERDOMO ---Diagnostic Radiology--- Exam Date/Time 06/11/2019 02:36:59 EDT Exam CR Chest 1 View Frontal Ordering Physician CHARLENE LINDSEY Accession Number [id number] CPT4 Codes 09936 () Reason For Exam pre op Report PORTABLE CHEST: INDICATION: Preop COMPARISON: 05/03/2019 Obtained at 0232 hours. A single portable AP radiograph of the chest was obtained. The heart is normal in size. The mediastinal silhouette is normal. Chronic interstitial changes are present. There are multiple areas of nodular scarring seen involving the right mid to upper lung field. No effusions are appreciated. There is no pleural thickening. The osseous structures are unremarkable. IMPRESSION: Running changes. No acute process. Report Dictated on Workstation: [id number] --- Final --- Dictating Physician: DO RAO ALFRED Signed Date and Time: 06/11/2019 2:54 am Signed by: DO RAO ALFRED Transcribed Date and Time: 06/11/2019 2:56 [place], [place] XR FEMUR RIGHT (MIN 2 VIEWS) on 06-11-2019 [facility], [facility] Incoming Radiology Results From [facility] - 06/11/2019 3:34 AM EDT Patient Name: SULLY PERDOMO ---Diagnostic Radiology--- Exam Date/Time 06/11/2019 02:59:53 EDT Exam CR Femur 2+ Views Right n Ordering Physician DO MOY DAVID J Accession Number [id number] CPT4 Codes 47092 () Reason For Exam Right hip pain & fall, distal views only Report RIGHT FEMUR, AP & LATERAL: INDICATION: Right hip pain after fall COMPARISON: No previous studies are available for comparison. AP and lateral views of the right femur which include the hip and the knee demonstrate an intertrochanteric fracture of the right hip. No osseous erosion or periosteal reaction is seen. No osteolytic or osteoblastic osseous densities are identified. There is no significant soft tissue abnormality. IMPRESSION: Intertrochanteric fracture of the right hip Report Dictated on Workstation: [id number] --- Final --- Dictating Physician: DO RAO ALFRED Signed Date and Time: 06/11/2019 3:33 am Signed by: DO RAO ALFRED Transcribed Date and Time: 06/11/2019 3:34 [place] Patient Name: SULLY PERDOMO ---Diagnostic Radiology--- Exam Date/Time 06/11/2019 02:59:53 EDT Exam CR Femur 2+ Views Right n Ordering Physician DO MOY DAVID J Accession Number [id number] CPT4 Codes 44334 () Reason For Exam Right hip pain & fall, distal views only Report RIGHT FEMUR, AP & LATERAL: INDICATION: Right hip pain after fall COMPARISON: No previous studies are available for comparison. AP and lateral views of the right femur which include the hip and the knee demonstrate an intertrochanteric fracture of the right hip. No osseous erosion or periosteal reaction is seen. No osteolytic or osteoblastic osseous densities are identified. There is no significant soft tissue abnormality. IMPRESSION: Intertrochanteric fracture of the right hip Report Dictated on Workstation: [id number] --- Final --- Dictating Physician: DO RAO ALFRED Signed Date and Time: 06/11/2019 3:33 am Signed by: DO RAO ALFRED Transcribed Date and Time: 06/11/2019 3:34 [place] XR HIP RIGHT (2-3 VIEWS)on 1 [facility], [facility] Incoming Radiology Results From [facility] - 06/11/2019 1:24 AM EDT Patient Name: SULLY PERDOMO ---Diagnostic Radiology--- Exam Date/Time 06/11/2019 01:16:17 EDT Exam CR Hip w/ Pelvis 2 or 3 Views Right n Ordering Physician DO MOY DAVID J Accession Number [id number] CPT4 Codes 16472 () Reason For Exam Fall right hip pain Report RIGHT HIP & PELVIS: INDICATION: Right hip pain after fall COMPARISON: No prior studies are available for comparison. A frontal view of the pelvis and frontal and frog leg views of the right hip were obtained. The bone density appears normal. There is a nondisplaced fracture of the intertrochanteric reduction of the right hip. The joint space is within normal limits. There are no significant soft tissue abnormalities. IMPRESSION: Intertrochanteric fracture of the right hip.. Report Dictated on Workstation: [id number] --- Final --- Dictating Physician: DO RAO ALFRED Signed Date and Time: 06/11/2019 1:23 am Signed by: DO RAO ALFRED Transcribed Date and Time: 06/11/2019 1:24 [place] Patient Name: SULLY PERDOMO ---Diagnostic Radiology--- Exam Date/Time 06/11/2019 01:16:17 EDT Exam CR Hip w/ Pelvis 2 or 3 Views Right n Ordering Physician DO MOY DAVID J Accession Number [id number] CPT4 Codes 60926 () Reason For Exam Fall right hip pain Report RIGHT HIP & PELVIS: INDICATION: Right hip pain after fall COMPARISON: No prior studies are available for comparison. A frontal view of the pelvis and frontal and frog leg views of the right hip were obtained. The bone density appears normal. There is a nondisplaced fracture of the intertrochanteric reduction of the right hip. The joint space is within normal limits. There are no significant soft tissue abnormalities. IMPRESSION: Intertrochanteric fracture of the right hip.. 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 -------- Procedures performed: # Right coronary angiography. # Left coronary angiography. # Left heart catheterization with angiography. -------- SUMMARY: 1. Left ventricle: Systolic function is normal. The estimated ejection fraction is 65-70%. 2. 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 IMPRESSIONS: False positive stress nuclear study. RECOMMENDATIONS: Risk factor modification. -------- HISTORY: Risk factors: Current tobacco use. Hypertension. Dyslipidemia. -------- PROCEDURE IN DETAIL: Study status: Cardiac cath: elective. Consent: The risks, benefits, and alternatives to the procedure and sedation wer e explained to the patient and informed consent was obtained. Fluorosco py time: Fluoroscopy time: 3.1 min. Fluoroscopy dose: Fluoroscopy dos e: 12 cGy. Location: Catheterization laboratory. PROCEDURE: 1. Initial setup. The patient was brought to the laboratory. A baseline ECG was recorded. Intravenous access was obtained. Surface ECG leads, blood pressure measurements, and pulse oximetric signals were monitored. 2. Skin preparation. The planned puncture sites were prepped and draped in the usual sterile manner. 3. Right radial artery access. A 6Fr/10cm Glidesheath Slender sheath was advanced into the vessel. 4. Selective right coronary angiography. A 5Fr x 100cm JR4 catheter was advanced into the right coronary vessel ostium under fluoroscopic guidance. Contrast was injected. Images were obtained in multiple projections. 5. Selective left coronary angiography. A 5Fr x 100cm JL3.5 catheter was advanced into the left coronary vessel ostium under fluoroscopic guidance. Contrast was injected. Images were obtained in multiple projections. 6. Left heart catheterization with angiography. A 5Fr x 110cm Angled Pigtail catheter was advanced across the aortic valve to the left ventricle under fluoroscopic guidance. 30 ml of contrast was injected at 10 ml/s. 7. Right radial artery hemostasis. The 6Fr/10cm Glidesheath Slender sheath was removed. 8. Right radial artery hemostasis. The 6Fr/10cm Glidesheath Slender sheath was removed. Mechanical compression was applied. STUDY COMPLETION: All catheters inserted during the procedure were removed. The patient tolerated the procedure well and was discharged fro m the lab. There were no complications. Administered medications: Allyson apamil (Isoptin, Calan, Covera), 2.5mg, intra-arterially, VERAPAMIL. He angie, 5000units, IV, HEPARIN. Midazolam, 1mg, IV, VERSED. Fentanyl, 2 5mcg, IV, FENTANYL. Contrast: 1. ISOVUE 300MG/CC 79 ml (total dose). -------- CORONARY ARTERIES: The left main bifurcates normally into the LAD and circumflex. LEFT VENTRICLE: Systolic function is normal. The estimated ejection fraction is 65-70%. HEMODYNAMICS: + -----+ + +Stage description +Condition1:Room Air - + + -----+ + +LV pressure s/d, ed +141/15, 23, dP/sk=612 mm Hg/s+ + -----+ + +Arterial pressure s/d (m)+137/72 (101) + + -----+ + Prepared and electronically signed by Jorge L Shultz MD 06/01/2019 13:06 Final Dictated: 06/01/2019 1:06 pm Dictating Physician: MD SHULTZ WILLIAM Signed Date and Time: 06/01/2019 1:06 pm Signed by: MD SHULTZ WILLIAM [facility] [place] Cardiac Stress Test Nucle ar Imagingon 05-23-2019 Nuclear Stress Myocardial Perfusion Study Dereck Protocol Gated SPECT Patient: Sully Perdomo Height: (67 in) Weight: (158 lb) : 1955 Age: 63 Gender: F Study Date: 05/23/2019 Accession#: Patient Room #: *ORDERING PHYSICIAN: * Jeremiah Martínez *SUPERVISING PHYSICIAN: * Cayetano Esteban *RN: Kaila Dior *NUCLEAR TECH: * Laz Mendoza *READING PHYSICIAN: * Trina Mays MD -------- Indications: - Abnormal EKG (R94.31). - Pre-op evaluation (Z01.818). -------- Summary: 1. Abnormal. Positive for inducible ischemia. 2. Myocardial perfusion imaging: The TID ratio is 0.95. There is no transient ischemic dilation by visual inspection. There is a small, mild, reversible defect involving the apical anterior and apical lateral wall(s), consistent with ischemia in the distribution of the left anterior descending coronary artery. 3. Gated SPECT: The calculated left ventricular ejection fraction during stress is 80 %. No regional wall motion abnormalities noted with stress. 4. Stress ECG conclusions: The stress ECG is consistent with myocardial ischemia. Laird scoring: exercise time of 5.6 min; maximum ST deviation of 1.5 mm; no angina; resulting score is -2. This score predicts a moderate risk of cardiac events. 5. Stress: Functional capacity is average. -------- History: Pre-op evaluation for cataract surgery Hypertension treated. Tobacco use current. Medications: Patient forgets the name of her BP medication.. Allergies: Codeine, PCN, Sulfa, Levaquin allergy. Chronic obstructive pulmonary disease. Family history of cardiovascular disease. Patient is NPO per policy. No caffeine per policy. -------- Study data: Bra or chest circumference is 38 in. The patient's lungs are clear to auscultation. There was no heart murmur auscultated by RN. Heart auscultation by RN revealed a regular rate and rhythm. Pre pain assessment is 0 out of 10. Post pain assessment is 0 out of 10. Patient status: Outpatient. Gated SPECT; rest/stress. One-day Sestamibi. Consent: The procedure was reviewed with the patient and the patient voices understanding. Study completion: The patient tolerated the procedure well. There were no complications. Administered medications: None. Discharge: Discharge instruction given. The patient was discharged to home while ambulatory. -------- Procedure data: Initial setup. The patient was brought to the laboratory. A baseline ECG was recorded. Surface ECG leads and blood pressure measurements were monitored. IV access obtained 22AC LAC. 1 attempts for IV access. IV access per ELIZABETH Girard. IV discontinued, site benign. Treadmill exercise testing was performed using the Dereck protocol. The patient exercised for 5 min 57 sec, to a maximal work rate of 7 mets. Exercise was terminated due to moderate dyspnea and due to moderate fatigue. A farm product purchaser was used while patient was on the treadmill. Exercise was terminated when the patient's Emily scale was 17. -------- Baseline ECG: Normal sinus rhythm. Nonspecific ST and T wave changes. Stress protocol: + +---+-- + --+ -----+ +Stage +HR +BP +Symptoms +Comments + + +---+-- + --+ -----+ +Rest +78 +130/76 (94) +No symptoms.+Pulse ox 100% Room Air.+ + +---+-- + --+ -----+ +Peak stress +134+178/80 (113)+Dyspnea. + ---+ + +---+-- + --+ -----+ +Recovery +116+178/68 (105)+No symptoms.+ + + +---+-- + --+ -----+ +Late recovery+97 +138/80 (99) +No symptoms.+ + + +---+-- + --+ -----+ Stress results: Protocol: Dereck. Peak heart rate during stress was 134 bpm. (84% of maximal predicted heart rate). The maximal predicted heart rate was 159 bpm.The heart rate recovery at one minute is abnormal. The heart rate at 1 minute into recovery was 127 bpm. The heart rate response to stress is normal. There is a normal resting blood pressure with an appropriate response to stress. The rate-pressure product for the peak heart rate and blood pressure was 96264 mm Hg/min. Stress testing did not produce any symptoms suggestive of coronary artery disease. Functional capacity is average. Stress ECG: Isolated ventricular ectopy. The stress ECG is consistent with myocardial ischemia. Laird scoring: exercise time of 5.6 min; maximum ST deviation of 1.5 mm; no angina; resulting score is -2. This score predicts a moderate risk of cardiac events. Horizontal ST depression: 1-1.5 mm. Isotope administration: + + +---- ---+ +Stage +Rest +Stress + + + +---- ---+ +Agent +Tc-99m sestamibi+Tc-99m sestamibi + + + +---- ---+ +Injected dose +7 mCi +20.6 mCi + + + +---- ---+ +Calibration dose +7.5 mCi +22.1 mCi + + + +---- ---+ +Residual dose +0.5 mCi +1.5 mCi + + + +---- ---+ +Date +05/23/2019 +05/23/2019 + + + +---- ---+ +Injection time +07:50 AM +09:00 AM + + + +---- ---+ +Injection at + +1 min before end of exercise+ + + +---- ---+ +Rest to delay image+00:35 +00:40 + + + +---- ---+ +Route +IV +IV + + + +---- ---+ +Injected by +AGGIE +AGGIE + + + +---- ---+ Image properties: Imaging information: The study was gated. The patient was imaged in the supine position.The image quality was good. Myocardial perfusion imaging: The TID ratio is 0.95. There is no transient ischemic dilation by visual inspection. There is a small, mild, reversible defect involving the apical anterior and apical lateral wall(s), consistent with ischemia in the distribution of the left anterior descending coronary artery. Gated SPECT: The calculated left ventricular ejection fraction during stress is80 %. Electronically signed by Trina Mays MD 05/23/2019 15:19 [facility], [place] Iam, [place] Incoming Cardiology Results From [employer] - 05/23/2019 3:19 PM EDT Nuclear Stress Myocardial Perfusion Study Dereck Protocol Gated SPECT Patient: Sully Perdomo Height: (67 in) Weight: (158 lb) : 1955 Age: 63 Gender: F Study Date: 05/23/2019 Accession#: Patient Room #: *ORDERING PHYSICIAN: * Jeremiah Martínez *SUPERVISING PHYSICIAN: * Cayetano Esteban *RN: * Kaila Pereira *NUCLEAR TECH: * Laz Mendoza *READING PHYSICIAN: * Trina Mays MD -------- Indications: - Abnormal EKG (R94.31). - Pre-op evaluation (Z01.818). -------- Summary: 1. Abnormal. Positive for inducible ischemia. 2. Myocardial perfusion imaging: The TID ratio is 0.95. There is no transient ischemic dilation by visual inspection. There is a small, mild, reversible defect involving the apical anterior and apical lateral wall(s), consistent with ischemia in the distribution of the left anterior descending coronary artery. 3. Gated SPECT: The calculated left ventricular ejection fraction during stress is 80 %. No regional wall motion abnormalities noted with stress. 4. Stress ECG conclusions: The stress ECG is consistent with myocardial ischemia. Laird scoring: exercise time of 5.6 min; maximum ST deviation of 1.5 mm; no angina; resulting score is -2. This score predicts a moderate risk of cardiac events. 5. Stress: Functional capacity is average. -------- History: Pre-op evaluation for cataract surgery Hypertension treated. Tobacco use current. Medications: Patient forgets the name of her BP medication.. Allergies: Codeine, PCN, Sulfa, Levaquin allergy. Chronic obstructive pulmonary disease. Family history of cardiovascular disease. Patient is NPO per policy. No caffeine per policy. -------- Study data: Bra or chest circumference is 38 in. The patient's lungs are clear to auscultation. There was no heart murmur auscultated by RN. Heart auscultation by RN revealed a regular rate and rhythm. Pre pain assessment is 0 out of 10. Post pain assessment is 0 out of 10. Patient status: Outpatient. Gated SPECT; rest/stress. One-day Sestamibi. Consent: The procedure was reviewed with the patient and the patient voices understanding. Study completion: The patient tolerated the procedure well. There were no complications. Administered medications: None. Discharge: Discharge instruction given. The patient was discharged to home while ambulatory. -------- Procedure data: Initial setup. The patient was brought to the laboratory. A baseline ECG was recorded. Surface ECG leads and blood pressure measurements were monitored. IV access obtained 22AC LAC. 1 attempts for IV access. IV access per ELIZABETH Girard. IV discontinued, site benign. Treadmill exercise testing was performed using the Dereck protocol. The patient exercised for 5 min 57 sec, to a maximal work rate of 7 mets. Exercise was terminated due to moderate dyspnea and due to moderate fatigue. A farm product purchaser was used while patient was on the treadmill. Exercise was terminated when the patient's Emily scale was 17. -------- Baseline ECG: Normal sinus rhythm. Nonspecific ST and T wave changes. Stress protocol: + +---+-- + --+ -----+ +Stage +HR +BP +Symptoms +Comments + + +---+-- + --+ -----+ +Rest +78 +130/76 (94) +No symptoms.+Pulse ox 100% Room Air.+ + +---+-- + --+ -----+ +Peak stress +134+178/80 (113)+Dyspnea. + ---+ + +---+-- + --+ -----+ +Recovery +116+178/68 (105)+No symptoms.+ + + +---+-- + --+ -----+ +Late recovery+97 +138/80 (99) +No symptoms.+ + + +---+-- + --+ -----+ Stress results: Protocol: Dereck. Peak heart rate during stress was 134 bpm. (84% of maximal predicted heart rate). The maximal predicted heart rate was 159 bpm.The heart rate recovery at one minute is abnormal. The heart rate at 1 minute into recovery was 127 bpm. The heart rate response to stress is normal. There is a normal resting blood pressure with an appropriate response to stress. The rate-pressure product for the peak heart rate and blood pressure was 31795 mm Hg/min. Stress testing did not produce any symptoms suggestive of coronary artery disease. Functional capacity is average. Stress ECG: Isolated ventricular ectopy. The stress ECG is consistent with myocardial ischemia. Laird scoring: exercise time of 5.6 min; maximum ST deviation of 1.5 mm; no angina; resulting score is -2. This score predicts a moderate risk of cardiac events. Horizontal ST depression: 1-1.5 mm. Isotope administration: + + +---- ---+ +Stage +Rest +Stress + + + +---- ---+ +Agent +Tc-99m sestamibi+Tc-99m sestamibi + + + +---- ---+ +Injected dose +7 mCi +20.6 mCi + + + +---- ---+ +Calibration dose +7.5 mCi +22.1 mCi + + + +---- ---+ +Residual dose +0.5 mCi +1.5 mCi + + + +---- ---+ +Date +05/23/2019 +05/23/2019 + + + +---- ---+ +Injection time +07:50 AM +09:00 AM + + + +---- ---+ +Injection at + +1 min before end of exercise+ + + +---- ---+ +Rest to delay image+00:35 +00:40 + + + +---- ---+ +Route +IV +IV + + + +---- ---+ +Injected by +BJB +BJB + + + +---- ---+ Image properties: Imaging information: The study was gated. The patient was imaged in the supine position.The image quality was good. Myocardial perfusion imaging: The TID ratio is 0.95. There is no transient ischemic dilation by visual inspection. There is a small, mild, reversible defect involving the apical anterior and apical lateral wall(s), consistent with ischemia in the distribution of the left anterior descending coronary artery. Gated SPECT: The calculated left ventricular ejection fraction during stress is80 %. Electronically signed by Trina Mays MD 05/23/2019 15:19 [place], [place] Vital Signs Date Time Vital Sign Value Performing Clinician Facility 11-08-2024 08:52-0500 Body height 167.[address] Jeremiah Martínez MD [facility] 11-08-2024 08:52-0500 Body mass index (BMI) [Ratio] 18.7 kg/m2 Dr. Jeremiah Martínez MD [facility] 11-08-2024 08:52-0500 Body temperature 98.5 [degF] Dr. Jeremiah Martínez MD [facility] 11-08-2024 08:52-0500 Body weight 52.[address] Jeremiah Martínez MD [facility] 11-08-2024 08:52-0500 Diastolic blood pressure 75 mm[Hg] Dr. Jeremiah Martínez MD [facility] 11-08-2024 08:52-0500 Heart rate 85 /min Dr. Jeremiah Martínez MD [facility] 11-08-2024 08:52-0500 Inhaled oxygen flow rate 2 L/min Dr. Jeremiah Martínez MD [facility] 11-08-2024 08:52-0500 Respiratory rate 20 /min Dr. Jeremiah Martínez MD [facility] 11-08-2024 08:52-0500 SaO2% (BldA) [Mass fraction] 96 % Dr. Jeremiah Martínez MD [facility] 11-08-2024 08:52-0500 Systolic blood pressure 136 mm[Hg] Dr. Jeremiah Martínez MD [facility] 10-14-2024 11:30-0500 Diastolic blood pressure 76 mm[Hg] Harpal Cuevas MD Work Phone: [facility] 10-14-2024 11:30-0500 Heart rate 74 /min Harpal Cuevas MD Work Phone: [facility] 10-14-2024 11:30-0500 Respiratory rate 16 /min Harpal Cuevas MD Work Phone: [facility] 10-14-2024 11:30-0500 SaO2% (BldA) [Mass fraction] 95 % Harpal Cuevas MD Work Phone: [facility] 10-14-2024 11:30-0500 Systolic blood pressure 142 mm[Hg] Harpal Cuevas MD Work Phone: [facility] 10-14-2024 09:16-0500 Body height 165.1 cm Harpal Cuevas MD Work Phone: [facility] 10-14-2024 09:16-0500 Body mass index (BMI) [Ratio] 19.64 kg/m2 Harpal Cuevas MD Work Phone: [facility] 10-14-2024 09:16-0500 Body temperature 98.29 [degF] Harpal Cuevas MD Work Phone: [facility] 10-14-2024 09:16-0500 Body weight 53.52 kg Harpal Cuevas MD Work Phone: [facility] 09-30-2024 07:54-0500 Body mass index (BMI) [Ratio] 19.4 kg/m2 Dr. Jeremiah Martínez MD [facility] 09-30-2024 07:54-0500 Body temperature 97.7 [degF] Dr. Jeremiah Martínez MD [facility] 09-30-2024 07:54-0500 Body weight 54.[address] Jeremiah Martínez MD [facility] 09-30-2024 07:54-0500 Diastolic blood pressure 79 mm[Hg] Dr. Jeremiah Martínez MD [facility] 09-30-2024 07:54-0500 Heart rate 78 /min Dr. Jeremiah Martínez MD [facility] 09-30-2024 07:54-0500 Inhaled oxygen flow rate 2 L/min Dr. Jeremiah Martínez MD [facility] 09-30-2024 07:54-0500 Respiratory rate 18 /min Dr. Jeremiah Martínez MD [facility] 09-30-2024 07:54-0500 SaO2% (BldA) [Mass fraction] 93 % Dr. Jeremiah Martínez MD [facility] 09-30-2024 07:54-0500 Systolic blood pressure 156 mm[Hg] Dr. Jeremiah Martínez MD [facility] 08-30-2024 07:46-0500 Body mass index (BMI) [Ratio] 19.3 kg/m2 Dr. Jeremiah Martínez MD [facility] 08-30-2024 07:46-0500 Body temperature 97.6 [degF] Dr. Jeremiah Martínez MD [facility] 08-30-2024 07:46-0500 Body weight 54.[address] Jeremiah Martínez MD [facility] 08-30-2024 07:46-0500 Diastolic blood pressure 77 mm[Hg] Dr. Jeremiah Martínez MD [facility] 08-30-2024 07:46-0500 Heart rate 76 /min Dr. Jeremiah Martínez MD [facility] 08-30-2024 07:46-0500 Inhaled oxygen flow rate 2 L/min Dr. Jeremiah Martínez MD [facility] 08-30-2024 07:46-0500 Respiratory rate 18 /min Dr. Jeremiah Martínez MD [facility] 08-30-2024 07:46-0500 SaO2% (BldA) [Mass fraction] 95 % Dr. Jeremiah Martínez MD [facility] 08-30-2024 07:46-0500 Systolic blood pressure 166 mm[Hg] Dr. Jeremiah Martínez MD [facility] 01-21-2024 09:22-0400 Body height 167.6 cm Katelin Ruiz MD Work Phone: [facility] 01-21-2024 09:22-0400 Body mass index (BMI) [Ratio] 19.05 kg/m2 Katelin Ruiz MD Work Phone: [facility] 01-21-2024 09:22-0400 Body weight 53.52 kg Katelin Ruiz MD Work Phone: [facility] 12-07-2023 07:47-0400 Body height 168.[address] Jeremiah Martínez Work Phone: [facility] 12-07-2023 07:47-0400 Body mass index (BMI) [Ratio] 19.1 kg/m2 Dr. Jeremiah Martínez Work Phone: [facility] 12-07-2023 07:47-0400 Body temperature 97.4 [degF] Dr. Jeremiah Martínez Work Phone: [facility] 12-07-2023 07:47-0400 Body weight 54.[address] Jeremiah Martínez Work Phone: [facility] 12-07-2023 07:47-0400 Diastolic blood pressure 73 mm[Hg] Dr. Jeremiah Martínez Work Phone: [facility] 12-07-2023 07:47-0400 Heart rate 69 /min Dr. Jeremiah Martínez Work Phone: [facility] 12-07-2023 07:47-0400 Respiratory rate 18 /min Dr. Jeremiah Martínez Work Phone: [facility] 12-07-2023 07:47-0400 SaO2% (BldA) [Mass fraction] 96 % Dr. Jeremiah Martínez Work Phone: [facility] 12-07-2023 07:47-0400 Systolic blood pressure 126 mm[Hg] Dr. Jeremiah Martínez Work Phone: [facility] 04-16-2023 09:17-0400 Body height 167.6 cm Ellen Kalka PA-C Work Phone: [facility] 04-16-2023 09:17-0400 Body weight 55.79 kg Ellen Herbertka PA-C Work Phone: [facility] 04-16-2023 09:17-0400 Diastolic blood pressure 72 mm[Hg] Ellen Kalka PA-C Work Phone: [facility] 04-16-2023 09:17-0400 Heart rate 82 /min Ellen Kalka PA-C Work Phone: [facility] 04-16-2023 09:17-0400 Systolic blood pressure 130 mm[Hg] Ellen Kalka PA-C Work Phone: [facility] 12-01-2021 10:00-0400 Body height 167.6 cm Anna Ibarra MD Work Phone: [facility] 12-01-2021 10:00-0400 Body mass index (BMI) [Ratio] 25.02 kg/m2 Anna Ibarra MD Work Phone: [facility] 12-01-2021 10:00-0400 Body temperature 99.5 [degF] Anna Ibarra MD Work Phone: [facility] 12-01-2021 10:00-0400 Body weight 70.31 kg Anna Ibarra MD Work Phone: [facility] 12-01-2021 10:00-0400 Diastolic blood pressure 76 mm[Hg] Anna Ibarra MD Work Phone: [facility] 12-01-2021 10:00-0400 Heart rate 84 /min Anna Ibarra MD Work Phone: [facility] 12-01-2021 10:00-0400 Respiratory rate 16 /min Anna Ibarra MD Work Phone: [facility] 12-01-2021 10:00-0400 SaO2% (BldA) [Mass fraction] 96 % Anna Ibarra MD Work Phone: [facility] 12-01-2021 10:00-0400 Systolic blood pressure 151 mm[Hg] Anna Ibarra MD Work Phone: [facility] 01-18-2021 03:36-0400 Diastolic blood pressure 49 mm[Hg] Anna Herrera MD [facility] Phone: [facility] Work Phone: 01-18-2021 03:36-0400 Heart rate 72 /min Anna Herrera MD Work Phone: [facility] Work Phone: 01-18-2021 03:36-0400 SaO2% (BldA) [Mass fraction] 93 % Anna Herrera MD Work Phone: [facility] Work Phone: 01-18-2021 03:36-0400 Systolic blood pressure 107 mm[Hg] Anna Herrera MD Work Phone: [facility] Work Phone: 01-18-2021 00:28-0400 Body height 167.6 cm Anna Herrera MD Work Phone: [employer] Work Phone: 01-18-2021 00:28-0400 Body mass index (BMI) [Ratio] 27.12 kg/m2 Anna Herrera MD Work Phone: [employer] Work Phone: 01-18-2021 00:28-0400 Body temperature 98.1 [degF] Anna Herrera MD Work Phone: [employer] Work Phone: 01-18-2021 00:28-0400 Body weight 76.2 kg Anna Herrera MD Work Phone: [employer] Work Phone: 01-18-2021 00:28-0400 Respiratory rate 16 /min Anna Herrera MD Work Phone: [employer] Work Phone: 06-24-2020 09:09-0400 BP Diastolic 72 mm[Hg] [facility] [place] 06-24-2020 09:09-0400 BP Systolic 133 mm[Hg] [facility] [place] 06-24-2020 09:09-0400 Pulse (Heart Rate) 77 /min [facility] 06-24-2020 09:09-0400 Pulse Oximetry 93 % [facility] [place] 06-24-2020 09:09-0400 Respiratory Rate 14 /min [facility] [place] 06-24-2020 08:01-0400 BMI (Body Mass Index) 27.28 kg/m2 [facility], [place] 06-24-2020 08:01-0400 Body Temperature 97.59 [degF] [facility] 06-24-2020 08:01-0400 Body weight 76.66 kg [facility] , [place] 06-24-2020 08:01-0400 Height 167.6 cm Jhonatan Mosqueda [facility] , [place] 06-14-2019 07:39-0400 Body Temperature 98.49 [degF] [facility], [place] 06-14-2019 07:39-0400 BP Diastolic 80 mm[Hg] [place], [place] 06-14-2019 07:39-0400 BP Systolic 119 mm[Hg] [facility] , [place] 06-14-2019 07:39-0400 Pulse (Heart Rate) 69 /min [facility] 06-14-2019 07:39-0400 Pulse Oximetry 95 % [facility] [place] 06-14-2019 07:39-0400 Respiratory Rate 18 /min [facility], [place] 06-11-2019 04:15-0400 BMI (Body Mass Index) 26.47 kg/m2 [facility], [place] 06-11-2019 04:15-0400 Body weight 76.66 kg [facility] [place] 06-11-2019 04:14-0400 Height 170.2 cm [place], [place] 05-23-2019 08:12-0400 BMI (Body Mass Index) 24.75 kg/m2 Jeremiah Martínez [facility], [place] 05-23-2019 08:12-0400 Body weight 71.67 kg Jeremiah Martínez [facility] , [place] 05-23-2019 08:12-0400 Height 170.2 cm [facility] [place] Encounters Encounter Date Encounter Type Care Provider Facility Start: 02-17-2025 ambulatory Ana Gilman PAINT SPECIALIST Fac ility:[facility] Start: 02-10-2025 ambulatory Jeremiah Martínez Facilit y:[facility] Start: 02-08-2025 ambulatory Ana Gilman PAINT SPECIALIST Fac ility:[facility] Start: 02-03-2025 ambulatory Ana Gilman PAINT SPECIALIST Fac ility:[facility] Start: 02-03-2025 End: 02-03-2025 Telephone encounter Jennifer Lebron RN [facility] Start: 01-18-2025 End: 01-18-2025 Telephone encounter Jennifer Lebron RN [facility] [place] Comment on above: 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 - [employer] ther Start: 01-10-2025 End: 01-10-2025 Telephone encounter Gopi Bess MD Work Phone: [facility] [place] Comment on above: Appointment (Call fo r appointment time and verification of instructional letter for 01/19/25) Start: 01-03-2025 End: 01-03-2025 Telephone encounter Gopi Bess MD Work Phone: [facility] Start: 01-02-2025 End: 01-02-2025 ambulatory JEREMIAH MARTÍNEZ Facility:[facility] Start: 12-30-2024 End: 12-30-2024 Emergency department patient visit JEREMIAH MARTÍNEZ Facility:[facility] Start: 12-19-2024 End: 12-19-[address] Jeremiah Martínez MD [facility] Work Phone: Start: 12-19-2024 End: 12-19-2024 Patient encounter procedure Ana [facility] -Radiology, [facility] Work Phone: Start: 12-19-2024 End: 12-19-2024 [facility]ulatory [facility] Facility[facility] Start: 12-08-2024 End: 12-08-2024 Subsequent hospital visit by physician Sergio Meneses MD Work Phone: [facility] Comment on above: Other acute recurren t sinusitis Dizziness and giddin ess Start: 12-08-2024 End: 12-08-2024 ambulatory SERGIO MENESES [facility] Start: 11-08-2024 End: 11-08-2024 Patient encounter procedure Ana [facility] Work Phone: Start: 11-08-2024 End: 11-08-2024 ambulatory Jeremiah Martínez Facility:[facility] Start: 11-04-2024 End: 11-04-2024 ambulatory JEREMIAH [facility] Start: 11-04-2024 End: 02-03-2025 Subsequent hospital visit by physician Jeremiah Martínez MD Work Phone: [facility] Radiology Comment on above: Pneumothorax, unspec ified; Fracture of one rib, unspecified side, initial encounter for closed fracture Pneumothorax, unspec ified (Primary Dx); Fracture of one rib, unspecified side, initial encounter for closed fracture Start: 10-26-2024 ambulatory Jeremiah Tomlin y:HARRY Start: 10-18-2024 End: 10-18-2024 Patient encounter procedure Ana Gilman PAINT SPECIALIST-C -[facility] Start: 10-18-2024 End: 10-18-2024 ambulatory Ana Gilman PAINT SPECIALIST Facility:[facility] Start: 10-14-2024 End: 10-14-2024 Emergency department patient visit Harpal Cuevas MD Work Phone: [facility] ED Comment on above: Inflammatory disorde r of upper respiratory tract (Primary Dx) Start: 09-30-2024 End: 09-30-2024 Patient encounter procedure Ana Gilman PAINT SPECIALIST-C -[facility] Work Phone: Start: 09-30-2024 End: 09-30-2024 ambulatory Ana Gilman NP Facility:[facility] Start: 09-23-2024 Non-patient / Non-visit Dr. Vanessa rodrigues MD -[facility] Start: 09-23-2024 ambulatory Vanessa Chowdhury Facility: [place] Start: 09-23-2024 End: 09-23-2024 Patient encounter procedure Ana Gilman PAINT SPECIALIST-C -Cat Scan, [facility] Work Phone: Start: 09-23-2024 End: 09-23-2024 ambulatory Ana Gilman PAINT SPECIALIST Facility:[facility] Start: 08-30-2024 End: 08-30-2024 Patient encounter procedure Ana Gilman PAINT SPECIALIST-C -[facility] Work Phone: Start: 08-30-2024 End: 08-30-2024 ambulatory Ana Gilman PAINT SPECIALIST Facility:[facility] Start: 07-08-2024 ambulatory Ana Gliman PAINT SPECIALIST Fac ility:[facility] Start: 07-04-2024 End: 07-04-2024 ambulatory Ana Gilman PAINT SPECIALIST Facility:[facility] Start: 06-21-2024 End: 09-20-2024 Transcribe Orders Jeremiah Martínez MD Work Phone: [facility] Central Scheduling Comment on above: Shortness of breath (Primary Dx); Weakness Start: 06-07-2024 End: 06-07-2024 ambulatory Ana Gilman PAINT SPECIALIST Facility:[facility] Start: 05-23-2024 End: 08-22-2024 Subsequent hospital visit by physician Jeremiah Martínez MD Work Phone: [facility] Radiology Comment on above: Otitis media, unspec ified, left ear Otitis media, unspec ified, left ear (Primary Dx) Start: 05-23-2024 End: 05-23-2024 [facility] Start: 05-13-2024 End: 05-13-2024 Subsequent hospital visit by physician Jeremiah Martínez MD Work Phone: [facility] MRI Comment on above: Abnormal results of function studies of other organs and systems Start: 05-13-2024 End: 05-13-2024 ambulatory [facility] Start: 05-05-2024 End: 08-04-2024 Transcribe Orders Jeremiah Martínez MD Work Phone: [facility] Comment on above: Abnormal results of function studies of other organs and systems (Primary Dx) Start: 03-25-2024 End: 03-25-2024 ambulatory Ana Gilman PAINT SPECIALIST Facility:[facility] Start: 03-15-2024 Refill Ellen Barakat PA-C Work Phone: [facility] [place] Comment on above: Refill Request Start: 03-07-2024 End: 03-07-2024 ambulatory Ana Gilman PAINT SPECIALIST Facility:[facility] Start: 01-21-2024 End: 01-21-2024 Office outpatient new 30 minutes Katelin Ruiz MD Work Phone: [facility] Comment on above: Chronic pansinusitis (Primary Dx) Start: 01-21-2024 End: 01-21-2024 ambulatory KATELIN RUIZ [facility] Start: 01-13-2024 Telephone encounter Jeremiah jane MD Work Phone: [facility] Clinical Communication Comment on above: OTher (Inform Provid er ) Start: 12-29-2023 Telephone encounter Jeremiah jane MD Work Phone: [facility] Communication Start: 12-22-2023 End: 12-22-[address] Jeremiah Martínez Work Phone: [facility] Work Phone: Start: 12-22-2023 End: 12-22-[address] Jeremiah Martínez Work Phone: [facility] Start: 12-12-2023 Refill Ellen Barakat PA-C Work Phone: [facility] [place] Comment on above: Refill Request Start: 12-07-2023 End: 12-07-[address] Jeremiah Martínez Work Phone: [facility] Pulmonary Medicine Work Phone: Start: 11-24-2023 End: 02-23-2024 Subsequent hospital visit by physician Jeremiah Martínez MD Work Phone: [facility] Radiology Comment on above: Pain in right knee Pain in right knee ( Primary Dx) Start: 11-23-2023 End: 11-23-2023 Subsequent hospital visit by physician Jeremiah Martínez MD Work Phone: [facility] Radiology Comment on above: Chronic sinusitis, u nspecified Chronic sinusitis, u nspecified (Primary Dx) Start: 11-20-2023 End: 11-20-2023 ambulatory [facility] Work Phone: Start: 11-20-2023 End: 11-20-2023 Patient encounter procedure [facility]-Cat Scan, [facility] Work Phone: Start: 11-09-2023 End: 11-09-2023 Subsequent hospital visit by physician Jeremiah Martínez MD Work Phone: [facility] MRI Comment on above: Chronic sinusitis, u nspecified Start: 11-06-2023 Transcribe Orders Jeremiah clemens MD Work Phone: [facility] Comment on above: Chronic sinusitis, u nspecified (Primary Dx) Start: 10-23-2023 End: 10-23-2023 ambulatory [facility] Work Phone: Start: 10-23-2023 End: 10-23-2023 Patient encounter procedure [facility]-Laboratory Work Phone: Start: 09-11-2023 ambulatory Purnima Crane Cl inical Communication Start: 09-11-2023 Patient encounter procedure Purnima Santos RN [facility] Start: 07-05-2023 [facility]ill [facility] Comment on above: Refill Request Start: 07-02-2023 End: 07-02-2023 Subsequent hospital visit by physician Jeremiah Martínez MD Work Phone: [facility] Non-Invasive Cardiology Comment on above: Canceled (Patient: R efused) Start: 06-29-2023 Telephone encounter Jeremiah jane MD Work Phone: [facility] Comment on above: Scheduling Emphysema, unspecifi ed (HCC) (Primary Dx) Start: 06-24-2023 End: 06-24-2023 Subsequent hospital visit by physician Jeremiah Martínez MD Work Phone: [facility] Radiology Comment on above: Emphysema, unspecifi ed (HCC) Emphysema, unspecifi ed (HCC) (Primary Dx) Start: 06-11-2023 Chart abstracting Jeremiah jane MD Work Phone: [facility] Comment on above: Polysomnogram Start: 05-18-2023 ambulatory Lupillo Bowen MD Work Phone: Ambulatory Surgery Start: 05-07-2023 ambulatory Rosendo Coon MD Work Phone: Ambulatory Surgery Start: 04-16-2023 End: 04-16-2023 Patient encounter procedure Ellen HOLCOMB-C Work Phone: [facility] Comment on above: Altered bowel habits (Primary Dx); Postprandial epigastric pain; Abnormal weight loss Start: 04-10-2023 End: 04-10-2023 Subsequent hospital visit by physician [facility] Us Exam Room 1 [facility] US Comment on above: Canceled (Patient: E mergency) Start: 04-07-2023 Transcribe Orders Jeremiah haywood MD Work Phone: [facility] Sched[facility] Start: 03-18-2023 End: 03-18-2023 Subsequent hospital visit by physician Jeremiah Martínez MD Work Phone: [facility] Radiology Comment on above: Localized swelling, mass and lump, left lower limb Localized swelling, mass and lump, left lower limb (Primary Dx) Start: 12-16-2022 End: 12-16-2022 Subsequent hospital visit by physician Phillip Tobar MD Work Phone: [facility] Comment on above: Acute pain of right knee Start: 12-16-2022 End: 12-16-2022 Office outpatient new 30 minutes Phillip Tobar MD Work Phone: [facility] Comment on above: Acute pain of right knee (Primary Dx); Quadriceps weakness; Tendinopathy of right gluteus medius Start: 11-27-2022 Transcribe Orders Jeremiah clemens MD Work Phone: [facility] Laboratory Comment on above: Hypoxemia (Primary D x) Start: 10-28-2022 End: 10-28-2022 ambulatory [facility] Work Phone: Start: 10-28-2022 End: 10-28-2022 Patient encounter procedure [facility]-Cat Scan, [facility] Start: 06-11-2022 ambulatory [facility] Start: 05-29-2022 ambulatory Lizzie Ferrari RN NURSE O N CALL Comment on above: Shoulder Injury Start: 12-01-2021 End: 12-01-2021 Emergency department patient visit [facility] Start: 12-01-2021 End: 12-01-2021 Emergency department patient visit Anna Ibarra MD Work Phone: [facility] Comment on above: Right wrist fracture , closed, initial encounter (Primary Dx) Start: 09-20-2021 ambulatory UNKNOWN PROVIDER [facility] Start: 09-13-2021 ambulatory UNKNOWN PROVIDER [facility] Start: 07-12-2021 ambulatory Jeremiah Martínez [facility] Start: 07-12-2021 End: 07-12-2021 Subsequent hospital visit by physician Jeremiah Martínez MD Work Phone: [facility] Start: 01-18-2021 End: 01-18-2021 Emergency department patient visit Anna Herrera MD Work Phone: [facility] ED Comment on above: Injury of head, init ial encounter (Primary Dx); Fall, initial encounter; Laceration of scalp, initial encounter; Acute alcoholic intoxication without complication (HCC) Start: 10-04-2020 End: 10-04-2020 Subsequent hospital visit by physician Jeremiah Martínez Work Phone: [facility] Start: 09-14-2020 End: 09-14-2020 Subsequent hospital visit by physician [facility] Cat Scan Rm [address] Comment on above: Arrived Start: 08-17-2020 End: 08-17-2020 Subsequent hospital visit by physician Jeremiah Martínez Work Phone: [facility] Start: 06-24-2020 End: 06-24-2020 Emergency department patient visit Jhonatan Mosqueda Work Phone: [facility] ED Comment on above: Injury of head, init ial encounter (Primary Dx); Closed fracture of nasal bone, initial encounter; Strain of neck muscle, initial encounter Start: 11-08-2019 End: 11-08-2019 Subsequent hospital visit by physician Jeremiah Martínez Work Phone: [facility] Start: 2019 End: 2019 Subsequent hospital visit by physician Nilesh Garces Work Phone: [facility] X-Ray Comment on above: Closed displaced int ertrochanteric fracture of right femur with routine healing; Right hip pain Start: 06-22-2019 End: 06-22-2019 Subsequent hospital visit by physician Nilesh Garces Work Phone: [facility] X-Ray Start: 06-11-2019 End: 06-14-2019 Evaluation and management of inpatient Anna Moy Work Phone: [employer] [facility] Comment on above: Closed 2-part intert rochanteric fracture of right femur, initial encounter ([facility]) (Primary Dx); Right hip pain; Fall from ground level; Abnormal nuclear stress test; Closed 2-part intertrochanteric fracture of proximal end of right femur, initial encounter ([facility]) Start: 05-23-2019 End: 05-23-2019 Subsequent hospital visit by physician Jeremiah Martínez Work Phone: [employer] [facility] Comment on above: Arrived Start: 05-16-2019 End: 05-16-2019 Subsequent hospital visit by physician Jeremiah Martínez Work Phone: [employer] [facility] Comment on above: Arrived Start: 05-03-2019 End: 05-03-2019 Subsequent hospital visit by physician Jeremiah Martínez Work Phone: [facility] Procedures Date Procedure Procedure Detail Performing Clinician Start: 12-19-2024 X-ray of chest, PA a nd lateral views Dr. Jeremiah Martínez MD Start: 11-04-2024 Radiologic exam ches t 2 views Jeremiah Martínez MD Work Phone: Start: 10-18-2024 Positron emission tomography with computed tomography Dr. Jeremiah Martínez MD Start: 10-14-2024 Basic metabolic pane l calcium total Harpal Cuevas MD Work Phone: Start: 10-14-2024 SARS-COV-2, FLU A/B, AND RSV COMBO Harpal Cuevas MD Work Phone: Start: 10-14-2024 Basic metabolic pane l calcium total Harpal Cuevas MD Work Phone: Start: 09-23-2024 CT of chest without contrast Dr. Jeremiah Martínez MD Start: 05-23-2024 Radiologic exam ches t 2 views Jeremiah Martínez MD Work Phone: Start: 05-13-2024 Mri brain brain stem w/o w/contrast material Jeremiah Martínez MD Work Phone: Start: 12-22-2023 Positron emission tomography with computed tomography Dr. Jeremiah Martínez Work Phone: Start: 11-20-2023 CT of chest Start: 11-09-2023 Mri brain brain stem w/o contrast material Jeremiah Martínez MD Work Phone: Start: 10-23-2023 Investigation of transfusion reaction Start: 10-23-2023 Nasopharyngeal Culture Start: 06-24-2023 Radiologic exam ches t 2 views Jeremiah Martínez MD Work Phone: Start: 12-16-2022 Radiologic examinati on knee 1/2 views Phillip Tobar MD Work Phone: Start: 10-28-2022 CT of chest Start: 12-01-2021 Radex wrist complete minimum 3 views Anna Ibarra MD Work Phone: Start: 01-18-2021 Ct cervical spine w/ o contrast material Anna Herrera MD Work Phone: Start: 01-18-2021 Ct head/brain w/o co ntrast material Anna Herrera MD Work Phone: Start: 01-18-2021 LACERATION REPAIR Anna Herrera MD Work Phone: Start: 10-04-2020 Duplex scan extracra nial art compl bi study Jeremiah Martínez Work Phone: Start: 09-14-2020 Ct maxillofacial w/o contrast material Hai Hess Work Phone: Start: 08-17-2020 Radiologic exam ches t 2 views Jeremiah Martínez Work Phone: Start: 06-24-2020 Ct cervical spine w/ o contrast material Jhonatan Mosqueda Work Phone: Start: 06-24-2020 Ct head/brain w/o co ntrast material Jhonatan Mosqueda Work Phone: Start: 06-24-2020 Ct maxillofacial w/o contrast material Jhonatan Mosqueda Work Phone: Start: 11-08-2019 Radex clavicle complete Jeremiah Martínez Work Phone: Start: 11-08-2019 Radex shoulder compl ete minimum 2 views Jeremiah Martínez Work Phone: Start: 11-08-2019 Radiologic exam knee complete 4/more views Jeremiah Martínez Work Phone: Start: 2019 Radex hip unilateral with pelvis 2-3 views Nilesh Garces Work Phone: Start: 06-22-2019 Radex hip unilateral with pelvis 2-3 views Nilesh Garces Work Phone: Start: 06-13-2019 Blood count complete automated Willian May Work Phone: Start: 06-12-2019 Blood count complete auto&auto difrntl wbc Willian May Work Phone: Start: 06-11-2019 OPERATIVE REPORT 3m Sca nning Start: 06-11-2019 Radiologic examinati on femur minimum 2 views Anna Moy Work Phone: Start: 06-11-2019 Blood typing serologic abo Charlene Lidnsey Work Phone: Start: 06-11-2019 Chest x-ray 1 view frontal Charlene Lindsey Work Phone: Start: 06-11-2019 Assay of troponin quantitative Anna Moy Work Phone: Start: 06-11-2019 Blood count complete auto&auto difrntl wbc Anna Moy Work Phone: Start: 06-11-2019 Comprehensive metabo lic panel Anna Moy Work Phone: Start: 06-11-2019 Prothrombin time Anna Moy Work Phone: Start: 06-11-2019 Thromboplastin time partial plasma/whole blood Anna Moy Work Phone: Start: 06-11-2019 Ecg routine ecg w/le ast 12 lds w/i&r Anna Moy Work Phone: Start: 06-11-2019 Radex hip unilateral with pelvis 2-3 views Gaston Chinmay Work Phone: Start: 05-23-2019 Myocardial spect mul tiple studies Jeremiah Martínez Work Phone: Plan of Treatment Date Care Activity Detail Author Start: 2032 RSV Vaccine (1 - 1-dose 75+ series) RSV Vaccine (1 - 1-dose 75+ series) [facility] Start: 12-31-2027 Diabetes Screening Diabetes Screening [facility] Start: 10-14-2025 Diabetes: Estimated Glomerular Filtration Rate for Kidney Health Diabetes: Estimated Glomerular Filtration Rate for Kidney Health [facility] Start: 05-08-2025 Influenza vaccination Influenza Vaccine (Season Ended) [facility] Start: 02-17-2025 End: 02-17-2025 Admission to same day surgery center 02/17/2025 11:05 AM EDT - 02/17/2025 12:58 PM EDT Surgery [facility] [address] Gopi Bess MD [address] [place] [address] NON-SELECTIVE CATH PLACEMENT THORACIC AORTA W/ ANGIOGRAPHY OF THE EXTRACRANIAL CAROTID VERTEBRAL AND/OR INTRACRANIAL VESSELS UNILATERAL W/ ANGIOGRAPHY OF THE CERVICOCEREBRAL ARCH [facility] Comment on above: NON-SELECTIVE CATH PLACEMENT THORACIC AO RTA W/ ANGIOGRAPHY OF THE EXTRACRANIAL CAROTID VERTEBRAL AND/OR INTRACRANIAL VESSELS UNILATERAL W/ ANGIOGRAPHY OF THE CERVICOCEREBRAL ARCH Start: 02-17-2025 End: 02-17-2025 [address]onsl[address]v cath thor aorta angio intr/xtrcranl art NON-SELECTIVE CATH PLACEMENT THORACIC AORTA W/ ANGIOGRAPHY OF THE EXTRACRANIAL CAROTID VERTEBRAL AND/OR INTRACRANIAL VESSELS UNILATERAL W/ ANGIOGRAPHY OF THE CERVICOCEREBRAL ARCH Cerebral aneurysm, nonruptured (HCC) 02/17/2025 11:05 AM EDT [facility] Start: 02-17-2025 Subsequent hospital visit by physician 02/17/2025 11:05 AM EDT Hospital Encounter [facility] [address] Gopi Bess MD [address] [place] [address] Cerebral aneurysm, nonruptured (HCC) [I67.1] [facility] Comment on above: Cerebral aneurysm, nonruptured (HCC) [I6 7.1] Start: 01-19-2025 End: 01-19-2025 Admission to same day surgery center 01/19/2025 10:57 AM EDT - 01/19/2025 12:50 PM EDT Surgery [facility] [id number] Gopi Bess MD [address] [place] [address] NON-SELECTIVE CATH PLACEMENT THORACIC AORTA W/ ANGIOGRAPHY OF THE EXTRACRANIAL CAROTID VERTEBRAL AND/OR INTRACRANIAL VESSELS UNILATERAL W/ ANGIOGRAPHY OF THE CERVICOCEREBRAL ARCH [facility] Comment on above: NON-SELECTIVE CATH PLACEMENT THORACIC AO RTA W/ ANGIOGRAPHY OF THE EXTRACRANIAL CAROTID VERTEBRAL AND/OR INTRACRANIAL VESSELS UNILATERAL W/ ANGIOGRAPHY OF THE CERVICOCEREBRAL ARCH Start: 01-19-2025 End: 01-19-2025 [address] thor aorta angio intr/xtrcranl art NON-SELECTIVE CATH PLACEMENT THORACIC AORTA W/ ANGIOGRAPHY OF THE EXTRACRANIAL CAROTID VERTEBRAL AND/OR INTRACRANIAL VESSELS UNILATERAL W/ ANGIOGRAPHY OF THE CERVICOCEREBRAL ARCH Cerebral aneurysm, nonruptured (HCC) 01/19/2025 10:57 AM EDT [facility] Start: 01-19-2025 Subsequent hospital visit by physician 01/19/2025 10:57 AM EDT Hospital Encounter [facility] [id number] Gopi Bess MD [address] [place] [address] Cerebral aneurysm, nonruptured (HCC) [I67.1] [facility] Comment on above: Cerebral aneurysm, nonruptured (HCC) [I6 7.1] Start: 12-26-2024 Polysomnography [facility] Start: 12-21-2024 Measurement of respiratory function [facility] Start: 10-06-2024 End: 10-06-2024 Patient encounter procedure 10/06/2024 9:15 AM EST Office Visit [facility] - [place] [address] [place] [address] Katelin Ruiz MD [address] [place], [place] [id number] [facility] [place] Start: 09-07-2024 Advance Directive Discussion Advance Directive Discussion [facility] Start: 09-07-2024 Medicare Advantage Annual Wellness Visit Medicare Advantage Annual Wellness Visit [facility] Start: 06-21-2024 End: 06-21-2026 Stress echocardiogram (TTE) exercise with contrast, bubble, strain, and 3D PRN Stress echocardiogram (TTE) exercise with contrast, bubble, strain, and 3D PRN CV Stress Echocardiography Routine Shortness of breath Expected: 06/21/2024 (Approximate), Expires: 06/21/2026 [facility] Work Phone: Comment on above: Expected: 06/21/2024 (Approximate), Expi res: 06/21/2026 Start: 05-08-2024 COVID-19 Vaccine ( season) COVID-19 Vaccine ( season) [facility] Start: 05-08-2024 COVID-19 Vaccine ( season) COVID-19 Vaccine ( season) [facility] Start: 05-08-2024 Influenza vaccination [facility] Start: 03-24-2024 End: 03-24-2024 Patient encounter procedure 03/24/2024 9:30 AM EDT Office Visit [facility] [address] [place] [address] Katelin Ruiz MD [address] [place], [place] [id number] [facility] Start: 01-21-2024 End: 01-21-2024 Patient encounter procedure 01/21/2024 9:30 AM EDT Office Visit [facility] [address] [place] [address] Katelin Ruiz MD [address] [facility] [address] [address] [facility] [address] [place], [place] [id number] [facility] Start: 12-02-2023 End: 12-02-2023 Patient encounter procedure 12/02/2023 11:00 AM EDT Office Visit [facility] Family Medicine [address] [place] [address] Ana Schneider, [address] [place] [address] [facility] Start: 11-23-2023 End: 11-22-2024 XR Ankle - right 3 Views [facility] Comment on above: Once for 1 Occurrences starting 11/23/19 until 11/23/2023 Expected: 11/23/2023 , Expires: 11/22/2024 Start: 11-23-2023 End: 11-22-2024 XR Knee - right 3 Views [facility] Work Phone: Comment on above: Once for 1 Occurrences starting 11/23/19 until 11/23/2023 Expected: 11/23/2023 , Expires: 11/22/2024 Start: 09-21-2023 End: 09-21-2023 Patient encounter procedure 09/21/2023 9:00 AM EST Office Visit [facility] [address] [place] [address] Charlene Perla PA-C [address] [place] [address] [facility] Start: 09-07-2023 Advance Directive Discussion Advance Directive Discussion [facility] Start: 09-07-2023 Behavioral Health Screening Behavioral Health Screening [facility] Start: 09-07-2023 Medicare Advantage Annual Wellness Visit Medicare Advantage Annual Wellness Visit [facility] Start: 07-02-2023 End: 07-02-2023 Patient encounter procedure 07/02/2023 9:00 AM EDT Appointment [facility] Non-Invasive Cardiology [address] [place] [address] [facility] Non-Invasive Cardiology Start: 06-29-2023 End: 06-29-2025 Stress echocardiogram (TTE) exercise with contrast, bubble, strain, and 3D PRN Stress echocardiogram (TTE) exercise with contrast, bubble, strain, and 3D PRN CV Stress Echocardiography Routine Emphysema, unspecified (HCC) Expected: 06/29/2023 (Approximate), Expires: 06/29/2025 [facility] [email or web address] [facility] Work Phone: Comment on above: Expected: 06/29/2023 (Approximate), Expi res: 06/29/2025 Start: 06-11-2023 End: 06-11-2023 Patient encounter procedure 06/11/2023 2:15 PM EDT Office Visit [facility] E[facility] [address] [place] [address] Kush Miller DO [address] [place], [place] [id number] [facility] Start: 06-11-2023 Diabetes: Estimated Glomerular Filtration Rate for Kidney Health Diabetes: Estimated Glomerular Filtration Rate for Kidney Health [facility] Start: 05-08-2023 COVID-19 Vaccine ( season) COVID-19 Vaccine ( season) [facility] Start: 05-08-2023 Influenza vaccination [facility] Start: 09-07-2022 ADVANCE DIRECTIVE DISCUSSION ADVANCE DIRECTIVE DISCUSSION [facility] Start: 09-07-2022 DEPRESSION ASSESSMENT DEPRESSION ASSESSMENT [facility] Start: 2022 BONE DENSITY BONE DENSITY [facility] Start: 2022 Bone Density Screening Bone Density Screening [facility] Start: 2022 Screening for osteoporosis Bone Density Screening [facility] Start: 05-08-2022 Influenza vaccination INFLUENZA (#1) [facility] Start: 05-08-2021 Influenza vaccination [facility] Start: 05-08-2020 Influenza vaccination Flu vaccine (#1) [facility] [place] Start: 08-24-2019 End: 08-24-2019 Office Visit 08/24/2019 Office Visit Orthopedic Surgery Nilesh Garces MD [address] [place] [address] [phone] [facility] [place] Start: 2019 End: 2019 Nurse Only [facility] [place] Start: 07-09-[address] lung screening Low dose CT lung screening [place], [place] Start: 07-09-2019 Screening for malignant neoplasm of lung Low dose CT lung screening [facility] Start: 05-17-2019 End: 05-17-2019 Appointment 05/17/2019 Appointment Radiology Jeremiah Martínez MD [address] [place] [phone] [facility] Start: 05-08-2019 Influenza vaccination Flu vaccine (#1) [place], [place] Start: 2017 Hepatitis B Vaccines (1 of 3 - Risk 3-dose series) Hepatitis B Vaccines (1 of 3 - Risk 3-dose series) [facility] Start: 2017 RSV Immunization aged 60 or older (1 - 1-dose 60+ series) RSV Immunization aged 60 or older (1 - 1-dose 60+ series) [facility] Start: 2017 RSV Immunization for Adults (1 - Risk 60-74 years 1-dose series) RSV Immunization for Adults (1 - Risk 60-74 years 1-dose series) [facility] Start: 2017 RSV Vaccine (1 - 1-dose 60+ series) RSV Vaccine (1 - 1-dose 60+ series) [facility] Start: 2007 Breast cancer screen Breast cancer screen [place], [place] Start: 2007 Colon cancer screen colonoscopy Colon cancer screen colonoscopy [place], [place] Start: 2007 Screening for malignant neoplasm of breast Breast cancer screen [facility] Start: 2007 Screening for malignant neoplasm of colon Colon cancer screen colonoscopy [place], [place] Start: 2007 Shingles Vaccine (1 of 2) Shingles Vaccine (1 of 2) [facility] Start: 2007 SHINGRIX VACCINE (1 of 2) SHINGRIX VACCINE (1 of 2) [facility] Start: 2007 Zoster Vaccines (1 of 2) Zoster Vaccines (1 of 2) [facility] Start: 2002 COLOGUARD (FIT-DNA) COLOGUARD (FIT-DNA) [facility] Start: 2002 Colonoscopy COLONOSCOPY [facility] Start: 2002 COLORECTAL CANCER SCREENING COLORECTAL CANCER SCREENING [facility] Start: [address] COLONOGRAPHY [facility] Start: 2002 DIABETES SCREEN DIABETES SCREEN [facility] Start: 2002 Diabetes Screening Diabetes Screening [facility] Start: 2002 FECAL OCCULT BLOOD FECAL OCCULT BLOOD [facility] Start: 2002 Lipid 1996 panel - Serum or Plasma Lipid Screening [facility] Start: 2002 Lipid panel Lipid Screening [facility] Start: 2002 LIPID SCREEN LIPID SCREEN [facility] Start: 2002 Screening for malignant neoplasm of colon [facility] Start: 2002 SIGMOIDOSCOPY SIGMOIDOSCOPY [facility] Start: 1997 Diabetes screen Diabetes screen [employer] [place] Start: 1997 Lipid panel Lipid screen [facility] Start: 1997 Lipid screen Lipid screen [email or web address] Start: 1997 Mammography [facility] Start: 1997 Screening for malignant neoplasm of breast [facility] Start: 1992 Diabetes screen Diabetes screen [facility] Start: 1987 HPV TESTING HPV TESTING [facility] Start: 1987 Screening for malignant neoplasm of cervix [facility] Start: 1978 Cervical cancer screen Cervical cancer screen [email or web address] Start: 1978 PAP TESTING PAP TESTING [facility] Start: 1978 Screening for malignant neoplasm of cervix [facility] Start: 1976 DTaP/Tdap/Td vaccine (1 - Tdap) DTaP/Tdap/Td vaccine (1 - Tdap) [facility] Start: 1976 DTaP/Tdap/Td Vaccines (1 - Tdap) DTaP/Tdap/Td Vaccines (1 - Tdap) [facility] Start: 1976 Pneumococcal Vaccine: 50+ (1 of 2 - PCV) Pneumococcal Vaccine: 50+ (1 of 2 - PCV) [facility] Start: 1976 Pneumococcal Vaccine: 50+ Years (1 of 2 - PCV) Pneumococcal Vaccine: 50+ Years (1 of 2 - PCV) [facility] Start: 1976 Urine microalbumin profile [facility] Start: 1976 Urine screening for protein Diabetes: Urine Protein Screening [facility] Start: 1975 Anxiety Screening Anxiety Screening [facility] Start: 1975 Depression Screening Depression Screening [facility] Start: 1975 Diabetes: Urine Albumin-Creatinine Ratio for Kidney Health Diabetes: Urine Albumin-Creatinine Ratio for Kidney Health [facility] Start: 1975 HEPATITIS C SCREENING HEPATITIS C SCREENING [facility] Start: 1975 Hepatitis C screening Hepatitis C Screening [facility] Start: 1975 HIV SCREENING HIV SCREENING [facility] Start: 1972 HIV screen HIV screen [place] Start: 1972 HIV screening HIV screen [facility] Start: 1969 Adult depression screening assessment DEPRESSION SCREENING [facility] Start: 1969 COVID-19 Vaccine (1) COVID-19 Vaccine (1) [facility] Work Phone: Start: 1969 Depression Monitoring Depression Monitoring [facility] Start: 1968 DTaP/Tdap/Td vaccine (1 - Tdap) DTaP/Tdap/Td vaccine (1 - Tdap) [place], [place] Start: 1967 Diabetic foot examination Diabetes: Foot Exam [facility] Start: 1967 Glaucoma screening Diabetes: Retinopathy Screening [facility] Start: 1967 Preventive dental service Diabetes: Dental Exam [facility] Start: 1963 Pneumococcal 0-64 years Vaccine (1 of 1 - PPSV23) Pneumococcal 0-64 years Vaccine (1 of 1 - PPSV23) [place], [place] Start: 1963 Pneumococcal 0-64 years Vaccine (1 of 2 - PPSV23) Pneumococcal 0-64 years Vaccine (1 of 2 - PPSV23) [facility] Start: 1963 Pneumococcal Vaccine: 65+ (1 - PCV) Pneumococcal Vaccine: 65+ (1 - PCV) [facility] Start: 1963 Pneumococcal Vaccine: 65+ (1 of 2 - PCV) Pneumococcal Vaccine: 65+ (1 of 2 - PCV) [facility] Start: 1963 Pneumococcal Vaccine: 65+ Years (1 - PCV) Pneumococcal Vaccine: 65+ Years (1 - PCV) [facility] Start: 1963 Pneumococcal Vaccine: 65+ Years (1 of 2 - PCV) Pneumococcal Vaccine: 65+ Years (1 of 2 - PCV) [facility] Start: 1963 PNEUMOCOCCAL: 65+ (1 - PCV) PNEUMOCOCCAL: 65+ (1 - PCV) [facility] Start: 1962 COVID-19 Vaccine (1) COVID-19 Vaccine (1) [facility] Start: 01-17-1958 COVID-19 VACCINE (#1) COVID-19 VACCINE (#1) [facility] Start: 1957 Annual wellness visit Medicare Initial Physical (IPPE) [facility] Start: 1957 Hemoglobin A1c measurement Diabetes: Hemoglobin A1C [facility] Start: 1957 Hepatitis B Vaccines (1 of 3 - 3-dose series) Hepatitis B Vaccines (1 of 3 - 3-dose series) [facility] Start: 1957 Hepatitis C screen [facility]: 1957 Hepatitis C screening Hepatitis C screen [facility] Start: 1957 Lipid panel Lipid Panel [facility] Start: 1957 Medicare Advantage Annual Wellness Visit (AWV) Medicare Advantage Annual Wellness Visit (AWV) [facility] Start: 1957 Screening for malignant neoplasm of colon [facility] Start: 1957 Screening for osteoporosis Bone Density Scan [facility] End: 05-23-2019 Cardiac Stress Test Exercise - Treadmill Cardiac Stress Test Exercise - Treadmill Cardiac Services Routine One Time for 1 Occurrences starting 05/23/2019 until 05/23/2019 [facility] Comment on above: One Time for 1 Occurrences starting 05/08 until 05/23/2019 CBC W Auto Different ial panel - Blood [facility] End: 04-16-2024 COLONOSCOPY DIAGNOSTIC COLONOSCOPY DIAGNOSTIC Endoscopy Routine Altered bowel habits Abnormal weight loss 1 Occurrences starting 04/16/2023 until 04/16/[address] [facility] Work Phone: Comment on above: 1 Occurrences starting 04/16/2023 until 04/16/2024 CT Chest WO contrast [facility] End: 12-08-2024 CT Maxillofacial region WO contrast [facility] Work Phone: Comment on above: Once for 1 Occurrences starting 12/09/19 until 12/08/2024 End: 04-16-2024 EGD DIAGNOSTIC EGD DIAGNOSTIC Endoscopy Routine Abnormal weight loss Postprandial epigastric pain 1 Occurrences starting 04/16/2023 until 04/16/[address] [facility] Work Phone: Comment on above: 1 Occurrences starting 04/16/2023 until 04/16/2024 End: 06-11-2019 FL LESS THAN 1 HOUR FL LESS THAN 1 HOUR Imaging Routine Once for 1 Occurrences starting 06/11/2019 until 06/11/2019 [email or web address] Comment on above: Once for 1 Occurrences starting 06/11/20 until 06/11/2019 FL LESS THAN 1 HOUR FL LESS THAN 1 HOUR Imaging Routine 06/11/2019 9:15 AM EDT [employer] [facility] IgE [Units/volume] i n Serum or Plasma [facility] Initiate Oxygen Ther apy Protocol Initiate Oxygen Therapy Protocol Respiratory Care Routine Daily until discontinued starting 06/11/2019 [email or web address] [facility] Comment on above: Daily until discontinued starting 2018 End: 12-08-2024 MR Brain WO and W contrast IV [facility] Work Phone: Comment on above: Once for 1 Occurrences starting 12/09/19 until 12/08/2024 End: 05-16-2019 Nasal Cannula Oxygen Nasal Cannula Oxygen Respiratory Care Routine As Needed until discontinued starting 05/16/2019 [employer] [facility] Comment on above: As Needed until discontinued starting End: 05-23-2019 Nasal Cannula Oxygen Nasal Cannula Oxygen Respiratory Care Routine As Needed until discontinued starting 05/23/2019 [employer] [facility] Comment on above: As Needed until discontinued starting OUTSIDE PROCEDURE SCAN OUTSIDE P ROCEDURE SCAN Procedures Ordered: [facility]/27/2022 [email or web address] Comment on above: Ordered: 11/27/2022 OUTSIDE PROCEDURE SCAN OUTSIDE P ROCEDURE SCAN Procedures Ordered: 03/18/2023 [employer] [facility] Comment on above: Ordered: 03/18/2023 OUTSIDE PROCEDURE SCAN OUTSIDE P ROCEDURE SCAN Procedures Ordered: 04/09/2023 [employer] [facility] Comment on above: Ordered: 04/09/2023 OUTSIDE PROCEDURE SCAN OUTSIDE P ROCEDURE SCAN Procedures Ordered: 06/24/2023 [facility] Comment on above: Ordered: 06/24/2023 OUTSIDE PROCEDURE SCAN OUTSIDE P ROCEDURE SCAN Procedures Ordered: 07/01/2023 [facility] Comment on above: Ordered: 07/01/2023 OUTSIDE PROCEDURE SCAN OUTSIDE P ROCEDURE SCAN Procedures Ordered: 11/09/2023 [facility] Comment on above: Ordered: 11/09/2023 OUTSIDE PROCEDURE SCAN OUTSIDE P ROCEDURE SCAN Procedures Ordered: 11/23/2023 [facility] Comment on above: Ordered: 11/23/2023 OUTSIDE PROCEDURE SCAN OUTSIDE P ROCEDURE SCAN Procedures Ordered: 11/24/2023 [facility] Comment on above: Ordered: 11/24/2023 OUTSIDE PROCEDURE SCAN OUTSIDE P ROCEDURE SCAN Procedures Ordered: 05/23/2024 [facility] Comment on above: Ordered: 05/23/2024 OUTSIDE PROCEDURE SCAN OUTSIDE P ROCEDURE SCAN Procedures Ordered: 11/04/2024 [facility] Comment on above: Ordered: 11/04/2024 Positron emission tomography with computed tomography [facility] End: 05-15-2024 US ABD RIGHT UPPER QUADRANT US ABD RIGHT UPPER QUADRANT Radiology Routine Postprandial epigastric pain 1 Occurrences starting 04/16/2023 until 05/15/[address] [facility] Work Phone: Comment on above: 1 Occurrences starting 04/16/2023 until 05/15/2024 End: 11-24-2023 XR Ankle - right 3 Views [facility] Work Phone: Comment on above: Once for 1 Occurrences starting 11/24/19 until 11/24/2023 End: 05-03-2019 XR CHEST STANDARD (2 VW) XR CHEST STANDARD (2 VW) Imaging Routine Once for 1 Occurrences starting 05/03/2019 until 05/03/2019 [facility] Comment on above: Once for 1 Occurrences starting 05/03/20 until 05/03/2019 XR CHEST STANDARD (2 VW) XR CHES T STANDARD (2 VW) Imaging Routine 05/03/2019 2:00 PM EDT [facility] End: 06-11-2019 XR Femur Right 2 VW XR Femur Right 2 VW Imaging STAT Once for 1 Occurrences starting 06/11/2019 until 06/11/2019 [place] Comment on above: Once for 1 Occurrences starting 06/11/20 19 until 06/11/2019 End: 03-18-2023 XR Hip - left 3 Views [email or web address] Work Phone: Comment on above: Once for 1 Occurrences starting 03/18/20 23 until 03/18/2023 End: 11-24-2023 XR Knee - right 3 Views [employer] Comment on above: Once for 1 Occurrences starting 11/24/19 24 until 11/24/2023 End: 07-12-2021 XR KNEE RIGHT (MIN 4 VIEWS) XR KNEE RIGHT (MIN 4 VIEWS) Imaging Routine Once for 1 Occurrences starting 07/12/2021 until 07/12/2021 [facility] Work Phone: Comment on above: Once for 1 Occurrences starting 07/12/20 21 until 07/12/2021 XR KNEE RIGHT (MIN 4 VIEWS) XR KNEE RIGHT (MIN 4 VIEWS) Imaging Routine 07/12/2021 12:46 PM EDT [facility] Work Phone: [facility] Immunizations Immunization Date Immunization Notes Care Provider Orlando wilks 06-03-2015 influenza virus vacc ine, unspecified formulation Jeremiah Martínez MD Work Phone: [facility] Payers Date Payer Category Payer Self-pay [id number] 2022 Medicare (Managed Care) [employer] [id number] 2022 Medicare O [facility] MEDICARE Member Subscriber Plan / Payer (Effective 2022-Present) Name: Sully Perdomo Relation to Subscriber: Self Name: Sully Perdomo Payer ID: [id number] (NAIC) Type: Medicare HMO Address: [place] [id number] 2022 Private Health Insurance [id number] 2022 Medicare [id number]. [id number] 2021 Medicaid [id number]. 1.13.159.2. [id number] 2020 Private Health Insurance [id number] 1.2.840.386568.1.13.239.2. [id number] 2018 Medicaid [id number] 1.2.840.876666.1.13.239.2. [id number] 2014 Unknown [id number] 1.2.840.961210.1.13.239.2. 7.3.315718.315 2014 Unknown [id number] 1.2.840.991288.1.13.239.2. 7.3.940673.315 1957 Unknown [id number] 2.16.840.1.839210.3.579.2. 1955 Unknown [id number] 2.16.840.1.075436.3.579.2. 1957 Unknown [id number] 2.16.840.1.463608.3.579.2. 668 1955 Unknown [id number] .840.1.585571.3.579.2. 668 1955 Unknown [id number] 2..840.1.542119.3.579.2. 668 Medicare MEDICARE PART A B [id number] Private Health Insurance Unknown [facility] [id number] Unknown [id number] 2.840.1.088056.3.579.2. 462 Unknown [id number] 2.840.1.620722.3.579.2. 462 Unknown [id number] 2.840.1.322760.3.579.2. 462 Unknown [id number] 2.840.1.920619.3.579.2. 462 Unknown [id number] 2.840.1.862437.3.579.2. 462 Unknown [id number] 2.840.1.600627.3.579.2. 462 Unknown [id number] 2.840.1.272403.3.579.2. 462 Unknown [id number] 2.840.1.804592.3.579.2. 462 Unknown [id number] 2.840.1.340331.3.579.2. 462 Unknown [id number] 2.840.1.221004.3.579.2. 462 Unknown [id number] 2.840.1.154302.3.579.2. 462 Unknown [id number] 2.840.1.705808.3.579.2. 462 Unknown [id number] 2.840.1.924868.3.579.2. 462 Unknown [id number] 2.16840.1.082394.3.579.2. 462 Unknown [id number] 2.16840.1.579873.3.579.2. 462 Unknown [id number] 2.16840.1.636059.3.579.2. 462 Unknown [id number] 2.16840.1.173168.3.579.2. 462 Unknown [id number] 2.840.1.412516.3.579.2. 462 Social History Date Type Detail Facility Start: 05-16-2019 End: 01-02-2025 Tobacco smoking status NHIS Current every day smoker [facility] Start: 05-16-2019 End: 12-31-2024 Alcohol intake Yes [place], [place] Start: 02-28-2016 Alcohol Comment occ [place], [place] Start: 1955 Sex Assigned At Not on file [place] Start: 05-23-2019 End: 12-31-2024 Cigarettes smoked current (pack per day) - Reported [place], [place] Start: 2019 End: 01-02-2025 Alcohol intake Current drinker of alcohol (finding) [place] Start: 06-24-2020 End: 01-02-2025 Tobacco use and exposure Never used [place] Start: 06-24-2020 Alcohol Comment frequently [place] Start: 11-21-2021 End: 03-18-2023 Exposure to SARS-CoV-2 (event) Not sure [place], [place] History of tobacco use Cigarette Smoker [facility] Start: 04-15-2006 Alcohol intake Not Asked [facility] Start: 11-04-2021 End: 12-07-2023 Tobacco smoking status NHIS Unknown if ever smoked [facility] Start: 10-30-2020 Occasional [facility] Start: 10-30-2020 None [facility] Start: 10-30-2020 Spouse/ Signif icant Other [facility] Start: 10-30-2020 Cigarettes [facility] Start: 1955 Sex Assigned At Female W [facility] National Score (1-10 0), lower number is lower risk 78 [facility] Start: 04-07-2022 End: 12-22-2024 Sex Female (finding) [facility] How often to you hav e a drink containing alcohol? Monthly or less [facility] How many standard drinks containing alcohol do you have on a typical day? 1 or 2 [facility] How often do you hav e 6 or more drinks on 1 occasion? Never [facility] Medical Equipment Procedure Code Equipment Code Equipment Origin al Text Equipment Identifier Dates FESS (functional endoscopic sinus surgery) PLATE,PDS .15MM THICK FDA Start: 10-30-2020 FESS (functional endoscopic sinus surgery) SEALANT,FLOSEAL HEMOSTATIC 5ML FDA Start: 10-30-2020 FESS (functional endoscopic sinus surgery) PLATE,PDS .15MM THICK FDA Start: 10-30-2020 FESS (functional endoscopic sinus surgery) SEALANT,FLOSEAL HEMOSTATIC 5ML FDA Start: 10-30-2020 FESS (functional endoscopic sinus surgery) PLATE,PDS .15MM THICK FDA Start: 10-30-2020 FESS (functional endoscopic sinus surgery) SEALANT,FLOSEAL HEMOSTATIC 5ML FDA Start: 10-30-2020 FESS (functional endoscopic sinus surgery) PLATE,PDS .15MM THICK FDA Start: 10-30-2020 FESS (functional endoscopic sinus surgery) SEALANT,FLOSEAL HEMOSTATIC 5ML FDA Start: 10-30-2020 FESS (functional endoscopic sinus surgery) PLATE,PDS .15MM THICK FDA Start: 10-30-2020 FESS (functional endoscopic sinus surgery) SEALANT,FLOSEAL HEMOSTATIC 5ML FDA Start: 10-30-2020 Clinical Notes 05-29-2022 to 02-03-2025 Telephone Encounter - Jennifer Lebron RN - 02/03/2025 8:53 AM EDTTelephone Encounter - Jennifer Lebron RN - 02/03/2025 8:53 AM EDTTelephone Encounter - Jennifer Lebron RN - 01/18/2025 3:35 PM EDT Note Date & Type Note Facility 02-03-2025 Telephone encounter Note Summary: date/time of cerebral angiogram Spoke with patient via phone regarding date/time of upcoming DSA with Dr. Murrell on 02/17/25 @1030am. All questions answered. [facility] 02-03-2025 Miscellaneous Notes Summary: date/time of cerebral angiogram Spoke with patient via phone regarding date/time of upcoming DSA with Dr. Murrell on 02/17/25 @1030am. All questions answered. documented in this encounter [facility] 01-18-2025 Telephone encounter Note Summary: Reminder call for DSA on 01/19/25 Left voicemail message regarding upcoming NIL DSA on 01/19/[address] Bess at 11am. Instructed patient to call with any questions. [facility] 01-18-2025 Miscellaneous Notes Summary: Reminder call for DSA on 01/19/25 Left voicemail message regarding upcoming NIL DSA on 01/19/[address] Bess at 11am. Instructed patient to call with any questions. documented in this encounter [facility] 01-10-2025 Telephone encounter Note Gave arrival time and information for procedure with Dr. Bess 01/19/25 at 1100/1000 arrival. Patient had not reviewed her MyChart letter yet, reminded her it will be in an najma not an email. Reviewed important NPO, medication, and procedure/arrival information. Patient confirmed she had information written down from previous scheduling call, and our call. Gave NIL nurses' office number to call back with any other questions or concerns. [facility] 01-10-2025 Miscellaneous Notes Gave arrival time and information for procedure with Dr. Bess 01/19/25 at 1100/1000 arrival. Patient had not reviewed her MyChart letter yet, reminded her it will be in an najma not an email. Reviewed important NPO, medication, and procedure/arrival information. Patient confirmed she had information written down from previous scheduling call, and our call. Gave NIL nurses' office number to call back with any other questions or concerns. documented in this encounter [facility] 01-03-2025 Telephone encounter Note Left VM for patient to call and schedule diagnostic angiogram with Dr. Bess. Provided call back number to call and schedule. [facility] 01-03-2025 Miscellaneous Notes Left VM for patient to call and schedule diagnostic angiogram with Dr. Bess. Provided call back number to call and schedule. documented in this encounter [facility] 01-02-2025 Note HNO ID: [id number] Author: GOPI BESS MD Service: ? Author Type: Physician Type: Progress Notes Filed: 01/02/2025 13:33 Note Text: Cerebrovascular Center: Cerebrovascular Neurosurgery and Endovascular Surgical Neuroradiology New Visit Sully Perdomo [facility]#: [id number] Date of Service: 01/02/2025 Primary Care Provider: Jeremiah Martínez MD The patient was referred by Sergio Meneses MD for opinion regarding incidental cerebral aneurysm. I will provide a written report of my findings to the referring through letter, e-communication, or epic. Subjective Chief Complaint: Unruptured aneurysm Sully is a 69-year-old female with a history of chronic sinusitis, presenting for evaluation of a recently discovered brain aneurysm. Sully reports a history of chronic sinusitis, for which she has undergone two sinus surgeries. She experiences persistent sinus drainage down the back of her throat and has been feeling really dizzy for a few months. The dizziness is described as a heavy head sensation rather than spinning and does not resolve on its own. It worsens throughout the day, often requiring her to lie down in a dark room by mid-afternoon to alleviate symptoms. She finds the dizziness annoying and stressful and suspects it may be related to her sinus issues. She has been following her ENT's recommendations, including a course of antibiotics, nasal sprays, and nasal irrigation, which have helped manage her sinus symptoms but have not resolved the dizziness. She is scheduled to see her doctor tomorrow for a possible swab to identify any ongoing infection. A few months ago, she visited the ER due to swelling over her eye, prompting concerns of a stroke. A CT scan was performed, and she is scheduled for a follow-up MRI to monitor for changes. She reports persistent swelling around the eye, which has decreased but is still present. She also experiences blurry vision and floaters but does not report dry eye. She recently saw an eye doctor, who prescribed new glasses due to changes in her vision and advised her to continue following up with her ENT. She was recently informed of a small aneurysm detected on imaging, which she was previously unaware of. She does not have a personal or family history of stroke, brain aneurysm, or polycystic kidney or ovarian disease. She has two healthy children, aged 28 and 45. She has a significant smoking history, having started at age 18 and previously smoking up to a pack and a half per day. She has reduced her smoking to two cigarettes per day over the past year. She also reports a lung nodule found by her insulation helper, for which she is scheduled to have a CT scan to monitor for growth. She expresses anxiety about this finding and her current health issues. Stroke Event Information Handedness: Smoking: Yes Illicit drug use: No Personal HX of HTN: Yes Personal HX of kidney disease: No Family History of SAH, aneurysms, stroke, vascular malformations, other neurological diseases? No REVIEW OF SYSYEMS 14-point systems were reviewed and found negative except to what mentioned in HPI. Gopi Bess MD There is no problem list on file for this patient. PAST SURGICAL HISTORY Procedure Laterality Date APPENDECTOMY COLONOSCOPY SCREENING 10 years ago per patient SINUSOTOMY FRONTAL EXTERNAL SIMPLE 09/07/1998 Removal of sinus abscess Allergies: Escitalopram, Levofloxacin In D5w, Budesonide, Codeine, Penicillins, Sulfa (Sulfonamide Antibiotics), and Tetracycline Medications: Current Outpatient Medications Medication Sig omeprazole (PRILOSEC) 20 mg capsule take 1 capsule by mouth once daily ON AN EMPTY STOMACH AT LEAST 30 MINUTES BEFORE EATING albuterol HFA (PROVENTIL HFA, VENTOLIN HFA) 90 [...] Take 100 mcg by mouth once daily. COOKIE 180 MG TAB Take 1 by mouth each morning FLONASE 50 MCG/ACTUATION NASAL SPRAY AEROSOL 2 sprays each nostril daily No current facility-administered medications for this visit. Social History Tobacco Use Smoking status: Every Day Current packs/day: 0.50 Average packs/day: 0.5 packs/day for 25.0 years (12.5 ttl pk-yrs) Types: Cigarettes Smokeless tobacco: Never Vaping Use Vaping status: Never Used Substance Use Topics Alcohol use: Yes Drug use: Never Objective Patient Entered Questionnaires PROMIS/NeuroQoL Score Percentiles Percentiles provide an indication of how a patient's score ranks in relation to the [place] gener (more content not included)... [facility] 12-19-2024 Radiology Diagnostic study note [facility] Imaging Services [address], [place] [id number] Chest PA and Lateral MR#: [id number] Acct: [id number] Name: SULLY PERDOMO STEPHAN Rep #: [id number] : 1955 F 69 From: Ryder Husain DO PCP: Dr. Jeremiah Martínez MD Status: RE G CLI Study:Chest PA and Lateral Date of Exam: 12/19/24 Exam# [id number] Ordering Dr: Gilman,C hristina PAINT SPECIALIST PAINT SPECIALIST-C PROCEDURE: CHEST PA AND LATERAL 12/19/2024 REASON FOR EXAM: EVAL FOR RESOLUTION OF PNEUMOTHORAX TECHNIQUE: Frontal and lateral views of the chest. COMPARISON: PET-CT exam dated 10/18/2024 FINDINGS: There is no pneumothorax identified. The right lung appears to be expanded. There are multiple nodules in the right lung, some of which are calcified. These nodules are most compatible with granulomas. Lungs are hyperinflated with flattening of the hemidiaphragms. Bulla formation is identified in the upper lung valero. These findings are most compatible with COPD. There is no atelectasis, consolidation, effusion or pneumonic infiltrate. Diffuse osteopenia bony thorax is seen. There is a subtle dextroscoliosis of the thoracic spine. There is an increased kyphotic curvature of the thoracic spine. Mild degenerative changes of the thoracic are noted. There is a slight decrease in height of a couple of the lower thoracic vertebral bodies which may be related to osteoporotic compression fractures. The age of which is indeterminate. RAD/Chest PA and Lateral IMPRESSION: No pneumothorax is identified. Calcified granulomas in the right lung. COPD Diffuse osteopenia bony thorax. Increased kyphotic curvature and degenerative changes of the thoracic spine. Slight decrease in height 2 of the lower thoracic vertebral bodies by approximately 3-5%. This may be related to osteoporotic compression fractures. Subacute right rib fractures. Reading Location: [id number] CC: PAINT SPECIALIST-Dawson Gilman; Dr. Jeremiah Martínez MD ~ Anesthesiology Technologist: Signed [facility] 10-14-2024 Hospital Discharg e instructions Harpal Cuevas MD - 10/14/2024 11:54 AM EST - perform salt water gargles 4 times a day -Use Saline nasal spray 4 times a day. -Drink lots of fluids and get plenty of rest. --OTC tylenol as directed on the bottle. -perform deep breathing to promote clearing of the airways and good lung expansion. documented in this encounter [facility] 10-14-2024 Emergency department Note Patient ambulated to restroom. [facility] 10-14-2024 Emergency department Note Patient ambulated to restroom. Images from the original note were not included. EMERGENCY DEPARTMENT ENCOUNTER Pt Name: Sully Perdomo Birthdate 1955 Date of evaluation: 10/14/2024 CHIEF COMPLAINT Chief Complaint Patient presents with Dizziness Facial Pain HISTORY OF PRESENT ILLNESS HPI Sully Perdomo is a 69 y.o. female who presents to the emergency department dizziness, feeling spacey. No blurred vision no double vision no focal weakness. She reports sinus congestion for 2 months cough with green sputum production for at least 3 weeks. Tinnitus. Postnasal drip. She has been on 2 antibiotics. No diarrhea. No fever. Reports perioral tingling. Chills. Myalgias arthralgias. She was recently started on lisinopril hydrochlorothiazide. REVIEW OF SYSTEMS Review of Systems Patient Active Problem List Diagnosis Abnormal nuclear stress test Hypertension Closed right hip fracture, initial encounter ([facility]) Closed 2-part intertrochanteric fracture of proximal end of right femur, initial encounter ([facility]) CURRENT MEDICATIONS Previous Medications ALBUTEROL (2.5 MG/3ML) 0.083% NEBULIZER SOLUTION albuterol sulfate 2.5 mg/3 mL (0.083 %) solution for nebulization ALBUTEROL 108 (90 BASE) MCG/ACT INHALER every 4 hours. ALENDRONATE (FOSAMAX) 70 MG TABLET 1 tablet 30 minutes before the first food, beverage or medicine of the day with plain water Orally Once a week for 84 ALPRAZOLAM (XANAX) 1 MG TABLET alprazolam 1 mg tablet AMLODIPINE (NORVASC) 10 MG TABLET Take 10 mg by mouth daily. AZITHROMYCIN (ZITHROMAX) 250 MG TABLET Every 24 hours. BUSPIRONE (BUSPAR) 10 MG TABLET CEFDINIR (OMNICEF) 300 MG CAPSULE Take 300 mg by mouth 2 times daily. CLARITHROMYCIN (BIAXIN) 500 MG TABLET clarithromycin 500 mg tablet CLINDAMYCIN (CLEOCIN) 150 MG CAPSULE take 1 capsule by mouth twice a day until finished CLONAZEPAM (KLONOPIN) 0.5 MG TABLET Take 0.5 mg by mouth Nightly. CYCLOBENZAPRINE (FLEXERIL) 5 MG TABLET every 12 hours. DOXYCYCLINE (VIBRA-TABS) 100 MG TABLET Take 100 mg by mouth 2 times daily. ESCITALOPRAM (LEXAPRO) 10 MG TABLET FLUTICASONE (FLONASE) 50 MCG/ACT NASAL SPRAY Administer 2 sprays into each nostril daily. Shake gently. Before first use, prime pump. After use, clean tip and replace cap. RUPENTLUCHF-FZPGBBRZU-ZKIFIV (TRELEGY ELLIPTA) 100-62.5-25 MCG/ACT AEROSOL POWDER 1 puff Every 24 hours. GUAIFENESIN (MUCINEX) 600 MG 12 HR TABLET Take 1 tablet by mouth every 12 hours as needed. HYDROCODONE-ACETAMINOPHEN (NORCO) 5-325 MG TABLET take 1 tablet by mouth every 4 to 6 hours WHILE AWAKE if needed for POST OP PAIN for 3 days HYDROXYZINE HCL (ATARAX) 25 MG TABLET take 3 tablets by mouth at bedtime if needed LISINOPRIL-HYDROCHLOROTHIAZIDE 10-12.5 MG TABLET Take 1 tablet by mouth daily. LORATADINE (CLARITIN) 10 MG TABLET Take 1 tablet by mouth daily. MECLIZINE (ANTIVERT) 25 MG TABLET every 8 hours. MONTELUKAST (SINGULAIR) 10 MG TABLET Every 24 hours. OMEPRAZOLE (PRILOSEC) [address] CAPSULE take 1 capsule by mouth once daily ON AN EMPTY STOMACH AT LEAST 30 MINUTES BEFORE EATING OXYCODONE-ACETAMINOPHEN (PERCOCET) 5-325 MG TABLET take 1 tablet by mouth every 4 to 6 hours if needed FOR POST-OP PAIN WHILE AWAKE RAMELTEON (ROZEREM) 8 MG TABLET take 1/2 tablet by mouth at bedtime for 2 NIGHTS then take 1 tablet by mouth at bedtime TRAMADOL (ULTRAM) 50 MG TABLET take 1 tablet by mouth every 4 hours if needed TRAZODONE (DESYREL) 50 MG TABLET ALLERGIES Escitalopram, Levofloxacin, Levofloxacin in d5w, Sulfa antibiotics, Budesonide, Doxycycline, Codeine, Tetracycline, Trimethoprim, and Penicillins SOCIAL HISTORY Social History Tobacco Use Smoking status: Every Day Current packs/day: 1.00 Types: Cigarettes Smokeless tobacco: Never Substance Use Topics Alcohol use: Yes Drug use: Yes Types: Marijuana PHYSICAL EXAM Vitals: 10/14/24 0916 10/14/24 1130 BP: 131/72 (!) 142/76 Pulse: 86 74 Resp: 16 16 Temp: 36.8 C (98.3 F) TempSrc: Tympanic SpO2: 95% 95% Weight: 53.5 kg (118 lb) Height: 1.651 m (5' 5) Physical Exam Vitals and nursing note reviewed. Constitutional: Appearance: She is underweight. She is not toxic-appearing. HENT: Right Ear: Ear canal normal. No mastoid tenderness. Tympanic membrane is bulging. Tympanic membrane is not injected, scarred, perforated or erythematous. Left Ear: Tympanic membrane and ear canal normal. Eyes: Extraocular Movements: Extraocular movements intact. Conjunctiva/sclera: Conjunctivae normal. Pupils: Pupils are equal, round, and reactive to light. Cardiovascular: Rate and Rhythm: Normal rate and regular rhythm. Heart sounds: Normal heart sounds. Pulmonary: Effort: Pulmonary effort is normal. Breath sounds: Wheezing and rhonchi present. Musculoskeletal: Cervical back: Normal range of motion. Skin: General: Skin is warm. Coloration: Skin is not jaundiced. Neurological: Mental Status: She is alert. Comments: Patient is alert, oriented 3, pupils are equal round and reactive to light, extraocular movements are intact, no skew deviation. No nystagmus. cranial nerves II-12 intact, motor examination is normal, sensory examination is normal, cerebellar examination is normal, reflexes are normal and symmetric, gait is intact.nihss=0. Psychiatric: Behavior: Behavior normal. Thought Content: Thought content normal. SCREENINGS Cristofer Coma Scale Best Eye Response: Spontaneous Best Verbal Response: Oriented Best Motor Response: Follows commands Cristofer Coma Scale Score: 15 Medical decision making DIAGNOSTIC RESULTS Procedures/EKG: Physician EKG interpretation can be found in [facility] if done RADIOLOGY : Radiologist results reviewed: No orders to display LABS: Labs Reviewed BASIC METABOLIC PANEL - Abnormal Result Value SODIUM 140 POTASSIUM 2.3 (*) CHLORIDE 116 (*) CARBON DIOXIDE 20 (*) UREA NITROGEN 9 CREATININE 0.51 (*) GLUCOSE 70 (*) CALCIUM 6.3 (*) ANION GAP 4 eGFR >90.0 SARS-COV-2, FLU A/B, AND RSV COMBO - Normal SARS-CoV-2 Not Detected Respiratory Syncytial Virus Not Detected Influenza A Not Detected Influenza B Not Detected Narrative: Methodology: real-time, RT-PCR The SARS-CoV-2, Flu A/B, and RSV Combo assay is intended for in vitro diagnostic use under the FDA Emergency Use Authorization (EUA). This test has not been FDA cleared or approved. In compliance with this authorization, please visit www.fda.gov/media/592041/downloa d or www.fda.gov/media/066927/[email or web address] d to access the applicable information sheets. SEDIMENTATION RATE, AUTOMATED - Normal Sed Rate 8 BASIC METABOLIC PANEL - Normal SODIUM 137 POTASSIUM 3.5 CHLORIDE 102 CARBON DIOXIDE 27 UREA NITROGEN 11 CREATININE 0.72 GLUCOSE 98 CALCIUM 9.5 ANION GAP 8 eGFR >90.0 MAGNESIUM - Normal MAGNESIUM 1.7 Narrative: Higher values can be expected in females during menses. Medications ordered: Medications albuterol (2.5 MG/3ML) 0.083% nebulizer solution 2.5 mg (2.5 mg Nebulization Given 10/14/24 1044) lactated ringers bolus 1,000 mL (0 mL IntraVENous Stopped 10/14/24 1109) ipratropium-albuterol (Duo-Neb) 0.5-2.5 mg/3 mL nebulizer solution 3 mL (3 mL Nebulization Given 10/14/24 1007) dexAMETHasone (Decadron) tablet 16 mg (16 mg Oral Given 10/14/24 1007) ED Course as of 10/14/24 1155 ThuOct 14, 2024 0944 MR brain w and wo contrast (06/07/24 0937) Prior medical records were reviewed: nad. Ordered by pcp [NM] ED Course User Index [NM] Harpal Cuevas MD Diagnoses as of 10/14/24 1155 Inflammatory disorder of upper respiratory tract * No order type specified * Our workup consisted of ordering/reviewing: Orders Placed This Encounter Procedures COVID-19, Flu A/B, and RSV Combo Basic metabolic panel Sedimentation rate, automated Basic metabolic panel Magnesium MDM: 69 y.o. presented with dizziness. The differential diagnosis considered: Electrolyte derangement, inflammation, temporal arteritis, upper respiratory inflammation, congestion, medication side effect, bronchospasm, dehydration. Patient's care was impacted by comorbidity of Hypertension, requiring her to be on medications diuretic, and I check her electrolyte level to see if this was contributing to her symptoms. Diagnostic tests considered but not performed: ct head: nihss=0. She had recent MRI. I considered, but did not perform, additional testing such CT stroke and Brain MRI, as well as admission or transfer to a higher level of care. I utilized an evidence-based risk rating tool (CMT) along with my training and experience to weigh the risk of discharge against the risks of further testing, imaging, or hospitalization. At this time, I estimate the risks of additional testing, imaging, or hospitalization (in the case of discharge home) to be equal to or greater than the risk of discharge. I have performed and NIHSS exam, and it is 0 with no cerebellar findings. The chance of missing a stroke is less than 1%. MRI at this time would not benefit the patient. MRI is higher risk than performing a NIHSS, and MRI is not as sensitive for acute stroke. With an NIHSS of 0 and no cerebellar findings, acute interventions such as thrombolytics, angiogram, or new anticoagulation most likely have more risk than benefit. [id number] SHARED DECISION MAKING: I discussed my risk assessment with the patient. The patient understands and consents to the risk of disposition/plan, as well as the risk of uncertainty in estimating outcomes. [id number] REVAL: CRITICAL CARE TIME PROCEDURES: Procedures FINAL IMPRESSION 1. Inflammatory disorder of upper respiratory tract DISPOSITION/PLAN DISPOSITION Discharge 10/14/2024 11:52:58 AM PATIENT REFERRED TO: Jeremiah Martínez MD [address] [place], [place] [id number] Call in 1 week I prescribed: New Prescriptions DEXAMETHASONE (DECADRON) 6 MG TABLET Take 1 tablet (6 mg) by mouth daily for 5 days. (Comment: this report has been produced using speech recognition software and may contain errors related to that system including errors in grammar, punctuation, and spelling, as well as words and phrases that may be inappropriate) Harpal Cuevas MD (electronically signed) Harpal Cuevas MD 10/14/24 1155 Pateint to room 5 with c/o dizziness for three weeks. Patient reports she has tingling around her mouth and chin that started today. Patient reports fatigue, cough, chills, headache, muscle and joint pain for three weeks, however over the last three days symptoms have increased. V/S obtained, call light within reach. Patient finished an antibiotic this am. documented in this encounter [facility] 10-14-2024 Emergency department Triage note Pateint to room 5 with c/o dizziness for three weeks. Patient reports she has tingling around her mouth and chin that started today. Patient reports fatigue, cough, chills, headache, muscle and joint pain for three weeks, however over the last three days symptoms have increased. V/S obtained, call light within reach. Patient finished an antibiotic this am. [facility] 10-14-2024 Physician Emergency department Note Images from the original note were not included. EMERGENCY DEPARTMENT ENCOUNTER Pt Name: Sully Perdomo Birthdate 1955 Date of evaluation: 10/14/2024 CHIEF COMPLAINT Chief Complaint Patient presents with Dizziness Facial Pain HISTORY OF PRESENT ILLNESS HPI Sully Perdomo is a 69 y.o. female who presents to the emergency department dizziness, feeling spacey. No blurred vision no double vision no focal weakness. She reports sinus congestion for 2 months cough with green sputum production for at least 3 weeks. Tinnitus. Postnasal drip. She has been on 2 antibiotics. No diarrhea. No fever. Reports perioral tingling. Chills. Myalgias arthralgias. She was recently started on lisinopril hydrochlorothiazide. REVIEW OF SYSTEMS Review of Systems Patient Active Problem List Diagnosis Abnormal nuclear stress test Hypertension Closed right hip fracture, initial encounter (HCC) Closed 2-part intertrochanteric fracture of proximal end of right femur, initial encounter ([facility]) CURRENT MEDICATIONS Previous Medications ALBUTEROL (2.5 MG/3ML) 0.083% NEBULIZER SOLUTION albuterol sulfate 2.5 mg/3 mL (0.083 %) solution for nebulization ALBUTEROL 108 (90 BASE) MCG/ACT INHALER every 4 hours. ALENDRONATE (FOSAMAX) 70 MG TABLET 1 tablet 30 minutes before the first food, beverage or medicine of the day with plain water Orally Once a week for 84 ALPRAZOLAM (XANAX) 1 MG TABLET alprazolam 1 mg tablet AMLODIPINE (NORVASC) 10 MG TABLET Take 10 mg by mouth daily. AZITHROMYCIN (ZITHROMAX) 250 MG TABLET Every 24 hours. BUSPIRONE (BUSPAR) 10 MG TABLET CEFDINIR (OMNICEF) 300 MG CAPSULE Take 300 mg by mouth 2 times daily. CLARITHROMYCIN (BIAXIN) 500 MG TABLET clarithromycin 500 mg tablet CLINDAMYCIN (CLEOCIN) 150 MG CAPSULE take 1 capsule by mouth twice a day until finished CLONAZEPAM (KLONOPIN) 0.5 MG TABLET Take 0.5 mg by mouth Nightly. CYCLOBENZAPRINE (FLEXERIL) 5 MG TABLET every 12 hours. DOXYCYCLINE (VIBRA-TABS) 100 MG TABLET Take 100 mg by mouth 2 times daily. ESCITALOPRAM (LEXAPRO) 10 MG TABLET FLUTICASONE (FLONASE) 50 MCG/ACT NASAL SPRAY Administer 2 sprays into each nostril daily. Shake gently. Before first use, prime pump. After use, clean tip and replace cap. [id number] (TRELEGY ELLIPTA) 100-62.5-25 MCG/ACT AEROSOL POWDER 1 puff Every 24 hours. GUAIFENESIN (MUCINEX) 600 MG 12 HR TABLET Take 1 tablet by mouth every 12 hours as needed. HYDROCODONE-ACETAMINOPHEN (NORCO) 5-325 MG TABLET take 1 tablet by mouth every 4 to 6 hours WHILE AWAKE if needed for POST OP PAIN for 3 days HYDROXYZINE HCL (ATARAX) 25 MG TABLET take 3 tablets by mouth at bedtime if needed LISINOPRIL-HYDROCHLOROTHIAZIDE 10-12.5 MG TABLET Take 1 tablet by mouth daily. LORATADINE (CLARITIN) 10 MG TABLET Take 1 tablet by mouth daily. MECLIZINE (ANTIVERT) 25 MG TABLET every 8 hours. MONTELUKAST (SINGULAIR) 10 MG TABLET Every 24 hours. OMEPRAZOLE (PRILOSEC) [address] CAPSULE take 1 capsule by mouth once daily ON AN EMPTY STOMACH AT LEAST 30 MINUTES BEFORE EATING OXYCODONE-ACETAMINOPHEN (PERCOCET) 5-325 MG TABLET take 1 tablet by mouth every 4 to 6 hours if needed FOR POST-OP PAIN WHILE AWAKE RAMELTEON (ROZEREM) 8 MG TABLET take 1/2 tablet by mouth at bedtime for 2 NIGHTS then take 1 tablet by mouth at bedtime TRAMADOL (ULTRAM) 50 MG TABLET take 1 tablet by mouth every 4 hours if needed TRAZODONE (DESYREL) 50 MG TABLET ALLERGIES Escitalopram, Levofloxacin, Levofloxacin in d5w, Sulfa antibiotics, Budesonide, Doxycycline, Codeine, Tetracycline, Trimethoprim, and Penicillins SOCIAL HISTORY Social History Tobacco Use Smoking status: Every Day Current packs/day: 1.00 Types: Cigarettes Smokeless tobacco: Never Substance Use Topics Alcohol use: Yes Drug use: Yes Types: Marijuana PHYSICAL EXAM Vitals: 10/14/24 0916 10/14/24 1130 BP: 131/72 (!) 142/76 Pulse: 86 74 Resp: 16 16 Temp: 36.8 C (98.3 F) TempSrc: Tympanic SpO2: 95% 95% Weight: 53.5 kg (118 lb) Height: 1.651 m (5' 5) Physical Exam Vitals and nursing note reviewed. Constitutional: Appearance: She is underweight. She is not toxic-appearing. HENT: Right Ear: Ear canal normal. No mastoid tenderness. Tympanic membrane is bulging. Tympanic membrane is not injected, scarred, perforated or erythematous. Left Ear: Tympanic membrane and ear canal normal. Eyes: Extraocular Movements: Extraocular movements intact. Conjunctiva/sclera: Conjunctivae normal. Pupils: Pupils are equal, round, and reactive to light. Cardiovascular: Rate and Rhythm: Normal rate and regular rhythm. Heart sounds: Normal heart sounds. Pulmonary: Effort: Pulmonary effort is normal. Breath sounds: Wheezing and rhonchi present. Musculoskeletal: Cervical back: Normal range of motion. Skin: General: Skin is warm. Coloration: Skin is not jaundiced. Neurological: Mental Status: She is alert. Comments: Patient is alert, oriented 3, pupils are equal round and reactive to light, extraocular movements are intact, no skew deviation. No nystagmus. cranial nerves II-12 intact, motor examination is normal, sensory examination is normal, cerebellar examination is normal, reflexes are normal and symmetric, gait is intact.nihss=0. Psychiatric: Behavior: Behavior normal. Thought Content: Thought content normal. SCREENINGS Crescent Coma Scale Best Eye Response: Spontaneous Best Verbal Response: Oriented Best Motor Response: Follows commands Cristofer Coma Scale Score: 15 Medical decision making DIAGNOSTIC RESULTS Procedures/EKG: Physician EKG interpretation can be found in [facility] if done RADIOLOGY : Radiologist results reviewed: No orders to display LABS: Labs Reviewed BASIC METABOLIC PANEL - Abnormal Result Value SODIUM 140 POTASSIUM 2.3 (*) CHLORIDE 116 (*) CARBON DIOXIDE 20 (*) UREA NITROGEN 9 CREATININE 0.51 (*) GLUCOSE 70 (*) CALCIUM 6.3 (*) ANION GAP 4 eGFR >90.0 SARS-COV-2, FLU A/B, AND RSV COMBO - Normal SARS-CoV-2 Not Detected Respiratory Syncytial Virus Not Detected Influenza A Not Detected Influenza B Not Detected Narrative: Methodology: real-time, RT-PCR The SARS-CoV-2, Flu A/B, and RSV Combo assay is intended for in vitro diagnostic use under the FDA Emergency Use Authorization (EUA). This test has not been FDA cleared or approved. In compliance with this authorization, please visit www.fda.gov/media/061920/[email or web address] d or www.fda.gov/media/[email or web address] d to access the applicable information sheets. SEDIMENTATION RATE, AUTOMATED - Normal Sed Rate 8 BASIC METABOLIC PANEL - Normal SODIUM 137 POTASSIUM 3.5 CHLORIDE 102 CARBON DIOXIDE 27 UREA NITROGEN 11 CREATININE 0.72 GLUCOSE 98 CALCIUM 9.5 ANION GAP 8 eGFR >90.0 MAGNESIUM - Normal MAGNESIUM 1.7 Narrative: Higher values can be expected in females during menses. Medications ordered: Medications albuterol (2.5 MG/3ML) 0.083% nebulizer solution 2.5 mg (2.5 mg Nebulization Given 10/14/24 1044) lactated ringers bolus 1,000 mL (0 mL IntraVENous Stopped 10/14/24 1109) ipratropium-albuterol (Duo-Neb) 0.5-2.5 mg/3 mL nebulizer solution 3 mL (3 mL Nebulization Given 10/14/24 1007) dexAMETHasone (Decadron) tablet 16 mg (16 mg Oral Given 10/14/24 1007) ED Course as of 10/14/24 1155 ThuOct 14, [id number] MR brain w and wo contrast (06/07/24 0937) Prior medical records were reviewed: nad. Ordered by pcp [NM] ED Course User Index [NM] Harpal Cuevas MD Diagnoses as of 10/14/24 1155 Inflammatory disorder of upper respiratory tract * No order type specified * Our workup consisted of ordering/reviewing: Orders Placed This Encounter Procedures COVID-19, Flu A/B, and RSV Combo Basic metabolic panel Sedimentation rate, automated Basic metabolic panel Magnesium MDM: 69 y.o. presented with dizziness. The differential diagnosis considered: Electrolyte derangement, inflammation, temporal arteritis, upper respiratory inflammation, congestion, medication side effect, bronchospasm, dehydration. Patient's care was impacted by comorbidity of Hypertension, requiring her to be on medications diuretic, and I check her electrolyte level to see if this was contributing to her symptoms. Diagnostic tests considered but not performed: ct head: nihss=0. She had recent MRI. I considered, but did not perform, additional testing such CT stroke and Brain MRI, as well as admission or transfer to a higher level of care. I utilized an evidence-based risk rating tool (CMT) along with my training and experience to weigh the risk of discharge against the risks of further testing, imaging, or hospitalization. At this time, I estimate the risks of additional testing, imaging, or hospitalization (in the case of discharge home) to be equal to or greater than the risk of discharge. I have performed and NIHSS exam, and it is 0 with no cerebellar findings. The chance of missing a stroke is less than 1%. MRI at this time would not benefit the patient. MRI is higher risk than performing a NIHSS, and MRI is not as sensitive for acute stroke. With an NIHSS of 0 and no cerebellar findings, acute interventions such as thrombolytics, angiogram, or new anticoagulation most likely have more risk than benefit. [id number] SHARED DECISION MAKING: I discussed my risk assessment with the patient. The patient understands and consents to the risk of disposition/plan, as well as the risk of uncertainty in estimating outcomes. [id number] REVAL: CRITICAL CARE TIME PROCEDURES: Procedures FINAL IMPRESSION 1. Inflammatory disorder of upper respiratory tract DISPOSITION/PLAN DISPOSITION Discharge 10/14/2024 11:52:58 AM PATIENT REFERRED TO: Jeremiah Martínez MD [address] [place] [phone] Call in 1 week I prescribed: New Prescriptions DEXAMETHASONE (DECADRON) 6 MG TABLET Take 1 tablet (6 mg) by mouth daily for 5 days. (Comment: this report has been produced using speech recognition software and may contain errors related to that system including errors in grammar, punctuation, and spelling, as well as words and phrases that may be inappropriate) Harpal Cuevas MD (electronically signed) Harpal Cuevas MD 10/14/24 1155 [facility] 08-30-2024 Evaluation note Diagnosis Onset Date Resolution Mass of upper lobe of left lung acute August 30, 2 024 2:07pm Asthma-COPD overlap syndrome chronic August 30, 024 2:07pm Hypoxia chronic August 30, 2024 2:07pm Mass of upper lobe of left lung acute September 30 7:39am Asthma-COPD overlap syndrome chronic September 30 7:39am Hypoxia chronic September 30, 2024 7:39am 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 September 30, 2024 7:39am Daytime hypersomnia acute November 08, 2024 12:41pm Mass of upper lobe of left lung acute November 08, 2024 12:41pm Asthma-COPD overlap syndrome chronic November 08, 2024 12:41pm Hypoxia chronic November 08 12:41pm [facility] Work Phone: [phone]) 705-427007-09-2024 Telephone encounter Note* Telephone Encounter - Naveed Kat MA - 03/15/2024 11:35 AM EDT Patient phones requesting refills as follows: Requested Prescriptions Pending Prescriptions Disp Refills omeprazole (PRILOSEC) 20 mg capsule [Pharmacy Med Name: OMEPRAZOLE DR 20 MG CAPSULE] 30 capsule 2 Sig: take 1 capsule by mouth once daily ON AN EMPTY STOMACH AT LEAST 30 MINUTES BEFORE EATING Please review and advise. Naveed Kat MA [facility]07-09-2024 Miscellaneous Notes* Telephone Encounter - Naveed Kat MA - 03/15/2024 11:35 AM EDT Patient phones requesting refills as follows: Requested Prescriptions Pending Prescriptions Disp Refills omeprazole (PRILOSEC) 20 mg capsule [Pharmacy Med Name: OMEPRAZOLE DR 20 MG CAPSULE] 30 capsule 2 Sig: take 1 capsule by mouth once daily ON AN EMPTY STOMACH AT LEAST 30 MINUTES BEFORE EATING Please review and advise. Naveed Kat MA [facility] History of Present illness Narrative* Katelin Ruiz MD - 01/21/2024 9:30 AM EDT [facility] [address], [address] [facility] [address] Dept phone: [phone] Sully Perdomo [id number] Assessment and Recommendations 1. Chronic pansinusitis Nasal endoscopy today - Mild inferior turbinate hypertrophy. Septum essentially midline. Widely patent maxillary antrostomies and ethmoidectomies bilaterally. Some mildly thickened discolored drainage from the left maxillary sinus without overt purulence. No polyps. We discussed the importance of continuing topical medication for her sinuses including daily Flonase and starting saline rinses. We discussed saline rinse technique. Continue Singulair, start taking the Zyrtec more regularly. Follow-up in 2 months to assess the sinuses. Discussed that we can use topical antibiotics because oral antibiotics are not as effective in someone who is chronic sinusitis and multiple sinus surgeries. She is down to about 3 cigarettes/day at this point. Katelin Ruiz MD Subjective This is a 68 y.o. old female presenting with other nasal polyp. Patient reports she has had 2 sinus surgeries, the last being about 3 years ago. She reports she isnever been allergy tested but she has a lot of allergy symptoms like watery eyes. She feels that she has a constant postnasal drip. She reports she is getting frequent antibiotics for sinus infectionsymptoms. She uses saline spray frequently in her nose to loosen things up. She has not used a sinus rinse before. She just started using Flonase daily. She is on Singulair and uses Zyrtec as needed. Medications Outpatient Medications Prior to Visit Medication Sig Dispense Refill albuterol (2.5 MG/3ML) 0.083% nebulizer solution albuterol sulfate 2.5 mg/3 mL (0.083 %) solution for nebulization amLODIPine (Norvasc) 10 MG tablet Take 10 mg by mouth daily. clonazePAM (KlonoPIN) 0.5 MG tablet Take 0.5 mg by mouth Nightly. cyclobenzaprine (Flexeril) 5 MG tablet every 12 hours. meclizine (Antivert) 25 MG tablet every 8 hours. montelukast (Singulair) 10 MG tablet Every 24 hours. fluticasone (Flonase) 50 MCG/ACT nasal spray fluticasone propionate 50 mcg/actuation nasal spray,suspension albuterol 108 (90 Base) MCG/ACT inhaler every 4 hours. alendronate (Fosamax) 70 MG tablet 1 tablet 30 minutes before the first food, beverage or medicine of the day with plain water Orally Once a week for 84 ALPRAZolam (Xanax) 1 MG tablet alprazolam 1 mg tablet azithromycin (Zithromax) 250 MG tablet Every 24 hours. busPIRone (Buspar) 10 MG tablet cefdinir (Omnicef) 300 MG capsule Take 300 mg by mouth 2 times daily. clarithromycin (Biaxin) 500 MG tablet clarithromycin 500 mg tablet clindamycin (Cleocin) 150 MG capsule take 1 capsule by mouth twice a day until finished doxycycline (Vibra-Tabs) 100 MG tablet Take 100 mg by mouth 2 times daily. escitalopram (Lexapro) 10 MG tablet HYDROcodone-acetaminophen ([place]) 5-325 MG tablet take 1 tablet by mouth every 4 to 6 hours WHILE AWAKE if needed for POST OP PAIN for 3 days hydrOXYzine HCl (Atarax) 25 MG tablet take 3 tablets by mouth at bedtime if needed omeprazole (PriLOSEC) [address] capsule take 1 capsule by mouth once daily ON AN EMPTY STOMACH AT LEAST 30 MINUTES BEFORE EATING oxyCODONE-acetaminophen (Percocet) 5-325 MG tablet take 1 tablet by mouth every 4 to 6 hours if needed FOR POST-OP PAIN WHILE AWAKE ramelteon (Rozerem) 8 MG tablet take 1/2 tablet by mouth at bedtime for 2 NIGHTS then take 1 tabletby mouth at bedtime traMADol (Ultram) 50 MG tablet take 1 tablet by mouth every 4 hours if needed traZODone (Desyrel) 50 MG tablet No facility-administered medications prior to visit. Allergies Allergies Allergen Reactions Escitalopram Anaphylaxis Levofloxacin Anaphylaxis and Swelling Levofloxacin In D5w Swelling Sulfa Antibiotics Anaphylaxis and Swelling Budesonide Other reaction(s): boils Doxycycline Nausea And Vomiting Codeine Other reaction(s): Heart Attack Sx, chest tightness, Other (See Comments) Chest pain chest pain Tetracycline Other reaction(s): Vomiting Trimethoprim Other reaction(s): Anaphylaxis Penicillins Hives and Rash Other reaction(s): hives Problem List Patient Active Problem List Diagnosis Abnormal nuclear stress test Hypertension Closed right hip fracture, initial encounter ([facility]) Closed 2-part intertrochanteric fracture of proximal end of right femur, initial encounter ([facility]) Objective Physical Exam Constitutional - alert, no acute distress, non-toxic appearing. Voice - strong and clear without breathiness. Face - normocephalic, atraumatic Eyes - normal appearing conjunctiva, no icterus Respiratory - normal work of breathing on room air, no audible wheezing or stridor Skin - warm and dry without rash Cranial nerves Grossly normal Results 11/09/23 MRI brain: Images reviewed. Mild thickening of bilateral maxillary sinuses with mucous retention cyst. Mild scattered ethmoid opacification, mild frontal opacification. RESULT: Acute Change: There is no evidence of restricted diffusion to suggest an acute infarct. Hemorrhage: No evidence of prior parenchymal hemorrhage on the gradient echo images. Mass Lesion/ Mass Effect: No evidence of an intracranial mass or extra-axial fluid collection. No significant mass effect Chronic Change: Scattered patchy areas of increased T2 and FLAIR signal are present in the supratentorial white matter which is a nonspecific finding but likely represents mild chronic microvascular ischemia. Parenchyma: No significant volume loss for age. Ventricles: Normal caliber and morphology Skull Base: Hypothalamic and pituitary region are grossly normal. Craniocervical junction is normal. No significant marrow replacement process. Vasculature: Major intracranial arterial structures, and dural venous sinuses show typical flow void, suggesting patency by spin echo criteria. Other: Mild mucosal thickening in the maxillary sinuses. Mucous retention cyst/polyps of the maxillary sinuses. Mild frothy secretions in the right maxillary sinus. Mild mucosal thickening of the right frontal sinus Postoperative changes suggestive of bilateral maxillary antrostomies and partial ethmoidectomy on the left posteriorly. Bilateral lens replacements. The orbits and extracranial soft tissues are unremarkable. IMPRESSION: No acute intracranial abnormality. Postoperative changes of the paranasal sinuses. Mucosal thickening of the nasal sinuses as discussed. Frothy secretions in the right maxillary sinus nonspecific though raise possibility of acute sinusitis if in the appropriate clinical setting. Procedure Procedure: Nasal endoscopy Indications: chronic sinusitis, s/p FESS x2, frequent infections Details: The risks, benefits, alternatives were dicussed and the patient elected to proceed. The endoscope was advanced through both sides of the nose after application of topical anesthetic and decongestant. Examination of the nasal cavities and nasopharynx was performed. Patient tolerated the procedure well. There were no complications. Findings: Mild inferior turbinate hypertrophy. Septum essentially midline. Widely patent maxillary antrostomies and ethmoidectomies bilaterally. Some mildly thickened discolored drainage from the left maxillary sinus without overt purulence. No polyps. documented in this [facility]05-16-2024 Instructions* Patient Instructions* Katelin Ruiz MD - 01/21/2024 9:30 AM EDT Things you can do to keep your nose healthy: Start Flonase/ Fluticasone (or other nasal steroid spray such as Nasonex, Nasocort, Rhinocort) - 2 sprays to each nostril 1 time per day. It will take 3-4 weeks of consistent daily use before you will notice a benefit. When spraying in left nostril, point towards left eye. When spraying in right nostril, point towards right eye to aim for inferior turbinates. Pointing toward the septum in the middle can cause bloody noses. Consider NeilMed saline rinses 1-2 times per day, especially if you have seasonal allergies or you feel a cold starting. If you can't tolerate rinses, then you can try nasal saline spray/mist 1-3 times per day. Both of these are over the counter and widely available. If the nose is dry, you can use a dab of Vaseline/Aquaphor or saline gel inside both nostrils everynight and/or a humidifier in your bedroom at night, especially during the winter Avoid excessive use of nasal decongestants (oxymetazoline, Afrin, Prabhu- Synephrine, phenylephrine). These are meant to be used for 3-5 days during an infection or allergy flare. You can also try over the counter allergy medications such as Claritin/Loratadine, Zyrtec/Cetirizine, or Cookie/Fexofenadine as needed for uncontrolled nasal congestion, runny nose, sneezing, itchy/watery eyes. These are safe for snf use. How to Irrigate the nose Fill the Neti pot / NeilMed Sinus Rinse / syringe with the room temperature or slightly warm salinesolution (recipe below). Gently insert the tip into one nostril and squeeze. Keep your head down and forward to prevent water from going into your throat. Do not sniff in the irrigation, just sprayit in. Use one half of the bottle per nostril. Do this for 1-2 times per day. A good place to do this is in the shower, especially when first starting irrigations. At home Nasal Irrigation Solution Recipe (or you can use the NeilMed Sinus Rinse solution packets) 8 ounces of room temperature distilled water. (If you use tap water, boil it first to sanitize and then let it cool) teaspoon table salt teaspoon baking soda Indoor allergen reduction tips Minimize carpet, curtains, upholstered furniture Vacuum at least once weekly Consider hypoallergenic/ dust mite sheets and pillow cases. Wash sheets once weekly in hot water to kill dust mites. Consider an air purifier/ HEPA filter documented in this [facility]05-08-2024 Telephone encounter Note* Telephone Encounter - Helena Tru - 01/13/2024 4:51 PM EDT We have been unable to reach your patient to schedule their testing. Test Name: Stress echocardiogram (TTE) exercise with contrast, bubble, strain, and 3D PRN 1st Attempt: 01/12/24 Patient states she will call back 2nd Attempt: 01/13/24 sent [employer] [id number] Miscellaneous Notes* Telephone Encounter - Helena Ott - 01/13/2024 4:51 PM EDT We have been unable to reach your patient to schedule their testing. Test Name: Stress echocardiogram (TTE) exercise with contrast, bubble, strain, and 3D PRN 1st Attempt: 01/12/24 Patient states she will call back 2nd Attempt: 01/13/24 sent [employer] JS FYI documented in this [facility]04-23-2024 Telephone encounter Note* Telephone Encounter - Dea Mcdonald RN - 12/29/2023 3:41 PM EDT We have been unable to reach your patient to schedule their testing. Test Name: US abdomen. Ordered 04/07/23 1st attempt via [employer], 1 cancellation - 04/10/23, 12/20/23 CL 2nd attempt called JR. SYSTEMS ADMINISTRATOR TE to office and defer. 12/29/23 LR [id number] Miscellaneous Notes* Telephone Encounter - Dea Mcdonald RN - 12/29/2023 3:41 PM EDT We have been unable to reach your patient to schedule their testing. Test Name: US abdomen. Ordered 04/07/23 1st attempt via [employer], 1 cancellation - 04/10/23, 12/20/23 CL 2nd attempt called JR. SYSTEMS ADMINISTRATOR TE to office and defer. 12/29/23 LR documented in this [address]08-2024 Miscellaneous Notes* Telephone Encounter - Naveed Kat MA - 12/14/2023 8:32 AM EDT Patient phones requesting refills as follows: Requested Prescriptions Pending Prescriptions Disp Refills omeprazole (PRILOSEC) 20 mg capsule [Pharmacy Med Name: OMEPRAZOLE DR 20 MG CAPSULE] 30 capsule 2 Sig: take 1 capsule by mouth once daily TAKE ON EMPTY STOMACH AT LEAST 30 MINUTES BEFORE EATING Please review and advise. Naveed Kat MA [facility] Telephone encounter Note * Telephone Encounter - Purnima Santos RN - 09/11/2023 9:28 AM EST Requesting a new patient appointment. Scheduled and [...] Protocols used: Information Only Call - No [id number] [id number] Miscellaneous Notes* Telephone Encounter - Purnima Santos RN - 09/11/2023 9:28 AM EST Requesting a new patient appointment. Scheduled and [...] Protocols used: Information Only Call - No [id number] documented in this [facility]10-30-2023 Miscellaneous Notes* Telephone Encounter - Naveed Kat MA - 07/06/2023 7:58 AM EDT Patient phones requesting refills as follows: Requested Prescriptions Pending Prescriptions Disp Refills omeprazole (PRILOSEC) 20 mg capsule [Pharmacy Med Name: OMEPRAZOLE DR 20 MG CAPSULE] 30 capsule 2 Sig: take 1 capsule by mouth once daily TAKE ON EMPTY STOMACH AT LEAST 30 MINUTES BEFORE EATING Please review and advise. Naveed Kat MA documented in [facility]10[facility]23 Telephone encounter Note * Telephone Encounter - Bc Way - 06/29/2023 2:13 PM EDT Ren the stress echo is not passing medical necessity (ABN fail), thanks! [id number] Miscellaneous Notes* Telephone Encounter - Bc Way - 06/29/2023 2:13 PM EDT Ren the stress echo is not passing medical necessity (ABN fail), thanks! documented in this [facility]10-05-2023 History of Present illness Narrative* James Arthur MD - 06/11/2023 2:16 PM EDT June 11, 2023 An order has been received for a CPAP Titration from [facility] Staff/Engagement Quality Consultant Staff Orders. Visit prep complete - Please refer to the sleep study order (under procedures tab) for protocol details and special instructions. Scheduled for 06/15/2023. Insurance: Payor: HUMANA MEDICARE / Plan: HUMANA GOLD PLUS / Product Type: HMO / Payer/Plan Subscr Sex Relation Sub. Ins. ID Effective Group Num 1. [employer] MEDICA* SULLY PERDOMO 1955 Female Self [id number] 08/07/22 [address] [address] [facility] Standing PSG Orders signed in the last 90 days None Future PSG Orders signed in the last 90 days None All Prior Sleep Studies (past 365 days) Some values may be hidden. Unless noted otherwise, only the newest values recorded on each date aredisplayed. Sleep Studies No data to display. 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 Indications for study: CODY previously diagnosed: Evaluate response to PAP therapy Sleep study to be performed: PAP titration study Special instructions: Target REM/supine sleep [facility] Staff Note: I have read the above protocol, edited as needed, and agree to the plan. James Arthur MD 3:21 PM, 06/11/2023 documented in this [facility]08-10-2023 Instructions* Patient Instructions* Ellen Barakat PA-C - 04/16/2023 9:35 AM EDT Images [...] If you do not have a responsible sprinkler driver (family member or friend) withyou to take you home, your exam cannot be done with sedation and will be cancelled. Please bring a list of all of your current medications, including any Wbry-byl-Hnddaeh medications with you. Medications If you take insulin, diabetic medications or blood thinners such as Coumadin (warfarin), Plavix (clopidogrel), Ticlid (ticlopidine hydrochloride), Agrylin (anagrelide), Xarelto (Rivaroxaban), Pradaxa(Dabigatran), Eliquis (Apixaban), and Effient (Prasugrel). You MUST [...] every 15 minutes for a total of 2glasses. You may continue to drink clear liquids up to (three) 3 hours before your exam. 2 08/2019 documented in this [facility]08-10-2023 History of Present illness Narrative* Ellen Barakat PA-C - 04/16/2023 9:17 AM EDT CHIEF COMPLAINT: Patient presents with: Elevated lipase: Lost 40 lbs in the last couple months. Having some stomach pains and bloating along with diarrhea. Labs scanned in yesterday. HPI: Sully Perdomo is a 67 year old female who presents for Elevated lipase (Lost 40 lbs in the last couple months. Having some stomach pains and bloating along with diarrhea. Labs scanned in yesterday.). Surg hx positive for appendectomy. Reports weight loss of 40 lbs, altered bowel habits, nausea w/oemesis since 12/2022. Bms are currently altered between constipated/diarrhea, no blood/black coloring. Takes Imodium PRN which results in constipation. Last formed stool was yesterday. Takes metamucil with some relief. Will experience postprandial epigastric pain, regular belching. Takes Tums PRN with some relief. Takes Advil daily for a couple years. Denies family hx of GI related cancers. 03/2023 CMP WNL, CBC mildly increased plts 421/rest WNL, lipase initially mildly elevated at 54 recheck was 51 and WNL Record Review: [facility] / Outside records reviewed. 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 COOKIE 180 MG TAB Take 1 by mouth [...] Employer And Job Title: No employer specified ([employer]) Years Of Education Completed: Not specified Marital [...] 130/72 Pulse 82 Ht 167.6 cm (5' 6) Wt 55.8 kg (123 lb) BMI 19.85 [...] which included preparing to see the patient, [id number] patient care, completing clinical documentation, obtaining and/or reviewing separately obtained history, performing a medically appropriate examination, counseling and educating the pat ient/family/caregiver, ordering medications, tests, or procedures, communicating with other HCPs (not separately reported), independently interpreting results (not separately reported), communicatingresults to the patient/family/caregiver, and care coordination (not separately reported). Ellen Barakat PA-C April 16, 2023 9:40 AM documented in this [facility]04-11-2023 History of Present illness Narrative* Phillip Tobar MD - 12/16/2022 10:30 AM EDT Images from the original note were not included. [facility] [place] [address] [address] [place] [address] Dept: [phone] Dept Chief Complaint Patient presents with New Patient Right Subjective History of Present Illness: Sully Perdomo is a 67 y.o. female who presents [...] effusion, erythema, ecchymosis or bony tenderness. Normal rangeof motion. No tenderness. No LCL laxity, MCL [...] at in motion physical therapy in the [facility]. No follow-ups on file. Phillip Tobar MD 12/16/2022 11:01 AM Please note that portions of this note may have been completed with voice recognition software. Documentation reviewed prior to signing but minor errors in art framing manager may have occurred. documented in this [facility]09-22-2022 Miscellaneous Notes* Telephone Encounter - Lizzie Ferrari RN - 05/29/2022 3:40 PM EDT Reason for Disposition [1] SEVERE pain AND [...] Taking Tylenol without relief. Protocols used: Shoulder [id number] documented in this encounterVan [facility] HospitalEvaluation note* Diagnosis Injury of head, initial encounter- Primary Fall, initial encounter Laceration of scalp, initial encounter Acute alcoholic intoxication without complication (HCC) documented in this encounter [facility] Work Phone: Evaluation note* Diagnosis Right wrist fracture, closed, initial encounter- Primary documented in this encounter [facility] Work Phone: Evaluation noteNo assessment information available [facility] Work Phone: Evaluation note* Diagnosis Acute pain of right knee- Primary Quadriceps weakness Tendinopathy of right gluteus medius Acute pain of right knee documented in this encounter [facility] note* Diagnosis Acute pain of right knee [facility]* Diagnosis Hypoxemia- Primary Hypoxemia documented in this encounter [facility] note* Diagnosis Localized swelling, mass and lump, left lower limb documented in this encounter [facility] note* Diagnosis Altered bowel habits- Primary Other symptoms involving digestive system Postprandial epigastric pain Abdominal pain, epigastric Abnormal weight loss Loss of weight documented in this encounter [facility] note* Diagnosis Localized swelling, mass and lump, left lower limb- Primary Localized swelling, mass and lump, left lower limb documented in this encounter [facility] note* Diagnosis Emphysema, unspecified (HCC) documented in this encounter [facility] note* Diagnosis Postprandial epigastric pain Abdominal pain, epigastric documented in this encounter [facility] note* Diagnosis Emphysema, unspecified (HCC)- Primary Emphysema, unspecified (HCC) documented in this encounter [facility] note* Diagnosis Emphysema, unspecified (HCC)- Primary documented in this encounter [facility] note* Diagnosis Chronic sinusitis, unspecified documented in this encounter [facility] note* Diagnosis Chronic sinusitis, unspecified documented in this encounter [facility]* Diagnosis Pain in right knee documented in this encounter [facility] note* Diagnosis Postprandial epigastric pain Abdominal pain, epigastric documented in this encounter [facility] note* Diagnosis Onset Date Resolution Status Mass of upper lobe of left lung acute Asthma-COPD overlap syndrome chronic [facility] Work Phone: Evaluation note* Diagnosis Chronic pansinusitis- Primary Other chronic sinusitis documented in this encounter [facility] note* Diagnosis Chronic sinusitis, unspecified- Primary Chronic sinusitis, unspecified documented in this encounter [facility] note* Diagnosis Chronic sinusitis, unspecified- Primary documented in this encounter [facility] note* Diagnosis Pain in right knee- Primary Pain in right knee documented in this encounter [facility] note* Diagnosis Abnormal results of function studies of other organs and systems documented in this encounter [facility] note* Diagnosis Otitis media, unspecified, left ear documented in this encounter [facility] note* Diagnosis Abnormal results of function studies of other organs and systems- Primary Abnormal results of function studies of other organs and systems documented in this encounter [facility] note* Diagnosis Otitis media, unspecified, left ear- Primary Otitis media, unspecified, left ear documented in this encounter [facility] note* Diagnosis Shortness of breath- Primary Weakness Other malaise and fatigue documented in this encounter [facility] note* Diagnosis Inflammatory disorder of upper respiratory tract- Primary documented in this encounter [facility] note* Diagnosis Pneumothorax, unspecified Fracture of one rib, unspecified side, initial encounter for closed fracture documented in this encounter [facility] note* Diagnosis Other acute recurrent sinusitis documented in this encounter [facility] note* Diagnosis Dizziness and giddiness documented in this encounter [facility] note* Diagnosis Pneumothorax, unspecified- Primary Fracture of one rib, unspecified side, initial encounter for closed fracture Pneumothorax, unspecified Fracture of one rib, unspecified side, initial encounter for closed fracture [facility]* Attachments The following attachments cannot be sent through Care Everywhere. * Lacerations: Mina (Ecuadorean) * Scalp Laceration: Mina or Stitches (Ecuadorean) * Alcohol Intoxication: Acute (Ecuadorean) * Head Injury: Closed: General Info (Ecuadorean) documented in this [facility] Work Phone: Hospital Discharge instructions* Attachments The following attachments cannot be sent through Care Everywhere. * Splint or Immobilizer Use (Ecuadorean) * Wrist Fracture (Ecuadorean) documented in this [facility] Work Phone: Reason for referral (narrative)* Consultation (Routine) - Authorized Specialty Diagnoses / Procedures Referred By Contac t Referred To Contact Physical Therapy Diagnoses Acute pain of right knee Quadriceps weakness Tendinopathy of right gluteus medius Procedures [facility] OFFICE/OUTPATIENT [facility] 60-74 MINUTES Phillip Tobar MD [address] [place] [address] Referral ID Status Reason Start Date Expiration Date Visits Requested Visits Authorized [id number] Authorized Specialty Services Required 12/16/2022 12/16/2023 99 99 [facility] for referral (narrative)* Diagnostic Procedure Only (Routine) - Authorized Specialty Diagnoses / Procedures Referred By Contac t Referred To Contact US IMAGING Diagnoses Postprandial epigastric pain Procedures US ABD RIGHT UPPER QUADRANT US ABDOMINAL REAL TIME W/IMAGE LIMITED Ellen Barakat PA-C [address] [place] [address] Us Imaging Referral ID Status Reason Start Date Expiration Date Visits Requested Visits Authorized [id number] Authorized Auto-Generat ed Referral 04/16/2023 05/15/2024 1 1 * Outpatient Procedure (Routine) - Pending Review Specialty Diagnoses / Procedures Referred By Contac t Referred To Contact [facility] Diagnoses Altered bowel habits Abnormal weight loss Procedures COLONOSCOPY DIAGNOSTIC COLONOSCOPY FLX DX W/COLLJ SPEC WHEN PFRMD Ellen Barakat PA-C [address] [place] [address] [facility] [address] [place] [address] Referral ID Status Reason Start Date Expiration Date Visits Requested Visits Authorized [id number] Pending Review Auto-Generat ed Referral 04/16/2023 04/16/2024 1 1 * Outpatient Procedure (Routine) - Pending Review Specialty Diagnoses / Procedures Referred By Contac t Referred To Contact [facility] Diagnoses Abnormal weight loss Postprandial epigastric pain Procedures EGD DIAGNOSTIC ESOPHAGOGASTRODUODENOS COPY TRANSORAL DIAGNOSTIC Ellen Barakat PA-C [address] [facility] [place] [address] [facility] [address] [place] [address] Referral ID Status Reason Start Date Expiration Date Visits Requested Visits Authorized [id number] Pending Review Auto-Generat ed Referral 04/16/2023 04/16/2024 1 1 [facility] for referral (narrative)No reason for referral information availableWVan Wert County Hospital Work Phone: Reason for visit Narrative* Imaging (Routine) - Closed Specialty Diagnoses / Procedures Referred By Arianna aguirre Referred To Contact Radiology Diagnoses Other acute recurrent sinusitis Procedures CT maxillofacial wo IV contrast Sergio Meneses MD [facility] [address] Phone: tel: fax: Referral ID Status Reason Start Date Expiration Date Visits Re quested Visits Authorized [id number] Closed 11/21/2024 01/20/2025 1 1 [facility]* Imaging (Routine) - Closed Specialty Diagnoses / Procedures Referred By Arianna aguirre Referred To Contact Radiology Diagnoses Dizziness and giddiness Procedures MR brain w and wo contrast Sergio Meneses MD [address] [address] Phone: tel: fax: [facility] MRI [address] [place] [address] Phone: tel: Referral ID Status Reason Start Date Expiration Date Visits Re quested Visits Authorized [id number] Closed 11/22/2024 11/22/2025 1 1 [facility] [email or web address] Advance Directives No Advanced Directives Records FoundDocuments on File Type Date Recorded Patient Acidizer Helper Expl anation Advance Directives and Living Will Power of Glass Cut Off Supervisor Latest Code Status on File Code Status [...] Documents on File Type Date Recorded Patient Acidizer Helper Expl anation ACP-Advance Directive ACP-Power of Glass Cut Off Supervisor Advance Directive Response Recorded Date/ Time Living Will No October 30 6:28pm Power of Glass Cut Off Supervisor No October 30, 2020 6:28pm Advance Directive Response Recorded Date/ Time Living Will No October 30 021 7:28pm Power of Glass Cut Off Supervisor No October 30, 2020 7:28pm Advance Directive Response Recorded Date/ Time Living Will No October 30 7:28pm Do you have a Healthcare Power of Glass Cut Off Supervisor? No October 30, 2020 7:28pm Hospital Course * Dea Laws, DO - 06/12/2019 10:00 AM EDT Physician Discharge Summary Patient ID: Sully Perdomo [id number] y.o. 1955 Admit date: 06/11/2019 Discharge date and time: 06/14/19 Admitting Physician: Foreign Fenton MD Discharge Physician: DEA LAWS MD Admission Diagnoses: Closed 2-part intertrochanteric fracture of proximal end of right femur, initial encounter ([facility]) [S72.141A] Closed right hip fracture, initial encounter ([facility]) [S72.001A] Discharge Diagnoses: same with hip [...] with dr martínez as needed Signed: DEA LAWS 06/12/2019 10:00 AM documented in this encounter Discharge Instructions * Discharge Instr - AGUSTO* Covert, Richelle Aguirre RN - 06/13/2019 8:14 AM EDT Continuity of Care Form Patient Name: Sully Perdomo : 1955 Admit date: 06/11/2019 Discharge date: [...] -- Admitting Physician: Foreign Fenton MD PCP: Jeremiah Martínez MD Discharging Nurse: ELIZABETH Peoples Discharging [facility] Unit/Room#: 722/1545 Discharging Unit Emergency Contact: Extended Emergency Contact Information Primary Emergency Contact: luiza perdomo Pros[place] Relation: Child Past Surgical History: Past Surgical History: Procedure Laterality Date APPENDECTOMY DIAGNOSTIC CARDIAC NETWORK SECURITY ADMINISTRATOR PROCEDURE 06/01/2019 Non obstructive CAD with mild [...] proximal end of right femur, initial encounter ([facility]) S72.141A Closed right hip fracture, initial encounter ([facility]) S72.001A Isolation/Infection: Isolation No Isolation Nurse [...] Assisted Dressing Assisted Toileting Independent Feeding Independent Operations Dispatcher Independent Med Delivery whole Wound Care Documentation [...] Readmission: 8 Discharging to Facility/ Agency Name: [facility] Address: [address] [place] [address] [place] [address] Dialysis Facility (if applicable) Name: Address: Dialysis Schedule: Phone: Fax: Technician Inventory Specialist/Unindentured Apprentice signature: ICIAN SECTION Prognosis: Good Condition at Discharge: Stable Rehab Potential (if transferring to Rehab): Good Recommended Labs or Other Treatments After Discharge: none Physician Certification: I certify the above information and transfer of Sully Perdomo is necessary for the continuing treatment of the diagnosis listed and that she requires Correction Facility for less 30 days. Update Admission [...] sent through Care Everywhere. * Cervical Strain (Ecuadorean) * Nose Fracture (Ecuadorean) * Head Injury: Closed: General Info (Ecuadorean) documented in this encounter History of Present Illness * Morena Moses, CONTROL VALVE TECHNICIAN - 06/14/2019 10:22 AM EDT Physical Therapy Facility/Department: [facility] MED SURG Daily Treatment Note NAME: Sully Perdomo : 1955 Date of Service: 06/14/2019 Discharge [...] 2-part intertrochanteric fractureof right femur, initial encounter ([facility]). Diagnoses of Right hip pain, Fall from ground level, Abnormal nuclear stress test, and Closed 2-part intertrochanteric fracture of proximal end of right femur, initial encounter ([facility]) were also pertinent to this visit. has a past medical history of Arthritis, Back pain, Chronic cervical pain, Chronic pain of left hand, Hypertension, and Knee pain, right. has a past surgical history that includes Tonsillectomy; Appendectomy; Elbow surgery; sinus surgery; Hemorrhoid surgery; Diagnostic Cardiac Certified Nurse Practitioner Procedure (06/01/2019); shoulder surgery; and hip surgery (Right, 06/11/2019). Restrictions Restrictions/Precautions Restrictions/Precautions: Weight Bearing, General Precautions, Fall Risk(snyder) Lower Extremity Weight Bearing Restrictions Right Lower [...] 06/13/2019 11:40 AM EDT Occupational Therapy Facility/Department: [facility] 1E MED SURG Daily Treatment Note NAME: Sully Perdomo : 1955 Date of Service: 06/13/2019 Discharge Recommendations: IP Rehab, Continue to assess pending progress(vs [facility]) Attempt to treat. Pt awake in bed and states that her daughter is on her way with lunch and pt requests to be allowed to visit and eat with her daughter. Pt request to be seen later if she is not discharged to SNF today. Will continue to follow and attempt to treat again. MELISSA Mansfield/Sandra * Morena Moses, CONTROL VALVE TECHNICIAN - 06/13/2019 8:58 AM EDT Physical Therapy Facility/Department: [facility] MED SURG Daily Treatment Note NAME: Sully Perdomo : 1955 Date of Service: 06/13/2019 Discharge [...] 2-part intertrochanteric fractureof right femur, initial encounter ([facility]). Diagnoses of Right hip pain, Fall from ground level, Abnormal nuclear stress test, and Closed 2-part intertrochanteric fracture of proximal end of right femur, initial encounter ([facility]) were also pertinent to this visit. has a past medical history of Arthritis, Back pain, Chronic cervical pain, Chronic pain of left hand, Hypertension, and Knee pain, right. has a past surgical history that includes Tonsillectomy; Appendectomy; Elbow surgery; sinus surgery; Hemorrhoid surgery; Diagnostic Cardiac Certified Nurse Practitioner Procedure (06/01/2019); shoulder surgery; and hip surgery (Right, 06/11/2019). Restrictions Restrictions/Precautions Restrictions/Precautions: Weight Bearing, General Precautions, Fall Risk(snyder) Lower Extremity Weight Bearing Restrictions Right Lower [...] Henriquez MD - 06/13/2019 6:32 AM EDT [facility] 1E MED SURG [address] [facility] [address] Dept: [phone] Loc: [phone] Orthopedic Progress Note Name: Sully Perdomo Date:06/13/2019 Attending:Foreign Fenton, * Subjective Able to [...] extension Pulses: Palpable DP LABS: Recent Labs 06/11/1915006/12/19 0428 06/13/19 0418 WBC 12.5* 11.2* 10.6 HGB 14.0 10.9* 11.0* HCT 41.0 32.3* 32.6* PLT 320 258 276 Recent Labs 06/11/19150 NA 140 K 3.7 CL 107 CO2 23 BUN 12 CREATININE 0.65 CALCIUM 9.2 Recent Labs 06/11/19150 INR 1.0 No results for input(s): SEDRATE, CRP in the last 72 hours. No results for input(s): HCG in the last 72 hours. Assessment Sully is a 63 y.o.female s/p 06/11 Intertan nailing of right hip Plan WBAT DVT prophylaxis-ASA 81 mg BID Follow up 2wks Ortho will sign off at this time. Please page the resident button maker and installer with issues * Elma Marroquin RD, LD - 06/12/2019 3:30 PM EDT Nutrition screen complete. Chart/labs reviewed. Pt assigned level one for nutrition care DTR to monitor and follow up * Ana Ordonez OTA - 06/12/2019 11:16 AM EDT Occupational Therapy Facility/Department: [facility] MED SURG Daily Treatment Note NAME: Sully Perdomo : 1955 Date of Service: 06/12/2019 Discharge Recommendations: IP Rehab, Continue to assess pending progress(vs [facility]) Assessment Assessment: Pt in 03/16 pain but [...] 2-part intertrochanteric fractureof right femur, initial encounter ([facility]). Diagnoses of Right hip pain, Fall from ground level, Abnormal nuclear stress test, and Closed 2-part intertrochanteric fracture of proximal end of right femur, initial encounter ([facility]) were also pertinent to this visit. has a past medical history of Arthritis, Back pain, Chronic cervical pain, Chronic pain of left hand, Hypertension, and Knee pain, right. has a past surgical history that includes Tonsillectomy; Appendectomy; Elbow surgery; sinus surgery; Hemorrhoid surgery; Diagnostic Cardiac Certified Nurse Practitioner Procedure (06/01/2019); shoulder surgery; and hip surgery (Right, 06/11/2019). Restrictions Restrictions/Precautions Restrictions/Precautions: Weight Bearing, General Precautions, Fall Risk(snyder) Lower Extremity Weight Bearing Restrictions Right Lower Extremity Weight Bearing: Weight Bearing As Tolerated Subjective General Chart Reviewed: Yes Family / Caregiver Present: No Subjective Subjective: Pt anxious upon first approach. Wanting her snyder cath out. Pleasant and cooperative for therapy. General Comment Comments: Nursing came in to medicate pt and to remove snyder cath. Pain Assessment Pain Level: 8 Pain Type: Surgical pain Pain Location: Hip Pain Orientation: Right Vital Signs Patient Currently in Pain: Yes Objective ADL Grooming: Stand by assistance(Stood at the sink to brush teeth and hair. ) LE Bathing: Moderate assistance(Stood a the sink for LB alhaji-care.) LE Dressing: Minimal assistance(Assist needed with socks. Pt instructed on use of sock aid and sewer connector. Pt had never used one before. Cues for technique. ) Toileting: (NA. Snyder cath just removed. ) Additional Comments: Pt c/o 7/10 pain in R upper leg and had poor tolerance for sitting upright andengaging in LB dressing. Ice provided for pain. Balance Sitting Balance: Modified independent (In chair.) Standing Balance: Contact guard assistance(Stood at the sink with CGA for safety. Pt reports she fell at home due to her eyes and just fell backward. No LOB this date. ) Standing Balance [...] to the bathroom with assist from nursing. Snyder cath just removed. Bed mobility Comment: Up [...] Minutes(adl,2 and ther act,1) LASHONDA Almonte * Charlene Eller, PT - 06/12/2019 10:56 AM EDT Physical Therapy Facility/Department: [facility] MED SURG Daily Treatment Note NAME: Sully Perdomo : 1955 Date of Service: 06/12/2019 Discharge [...] 2-part intertrochanteric fractureof right femur, initial encounter ([facility]). Diagnoses of Right hip pain, Fall from ground level, Abnormal nuclear stress test, and Closed 2-part intertrochanteric fracture of proximal end of right femur, initial encounter ([facility]) were also pertinent to this visit. has a past medical history of Arthritis, Back pain, Chronic cervical pain, Chronic pain of left hand, Hypertension, and Knee pain, right. has a past surgical history that includes Tonsillectomy; Appendectomy; Elbow surgery; sinus surgery; Hemorrhoid surgery; Diagnostic Cardiac Certified Nurse Practitioner Procedure (06/01/2019); shoulder surgery; and hip surgery (Right, 06/11/2019). Restrictions Restrictions/Precautions Restrictions/Precautions: Weight Bearing, General Precautions, Fall Risk(snyder) Lower Extremity Weight Bearing Restrictions Right Lower [...] Code Treatment Minutes: 25 Minutes(gait and therex) Charlene Eller PT * Willian May MD - 06/12/2019 7:16 AM EDT [facility] 1E MED SURG [address] [facility] [address] Dept: [phone] Loc: [phone] Orthopedic Progress Note Name: Sully Perdomo Date:06/12/2019 Attending:Foreign Fenton, * Subjective CORNELIO. No [...] Pulses: Palpable DP LABS: Recent Labs 06/11/19 01506/12/19 0428 WBC 12.5* 11.2* HGB 14.0 10.9* HCT 41.0 32.3* PLT 320 258 Recent Labs 06/11/19150 NA 140 K 3.7 CL 107 CO2 23 BUN 12 CREATININE 0.65 CALCIUM 9.2 Recent Labs 06/11/19150 INR 1.0 No results for input(s): SEDRATE, CRP in the last 72 hours. No results for input(s): HCG in the last 72 hours. Assessment Sully is a 63 y.o.female s/p 06/11 Intertan nailing of right hip Plan WBAT Abx x 24hrs DVT prophylaxis Follow up 2wks * Bernice Dobson, PT - 06/11/2019 2:49 PM EDT Physical Therapy Facility/Department: [facility] MED SURG Initial Assessment NAME: Sully Perdomo : 1955 Date of Service: 06/11/2019 Discharge [...] surgery; sinus surgery; Hemorrhoid surgery; Diagnostic Cardiac Certified Nurse Practitioner Procedure (06/01/2019); shoulder surgery; and hip surgery (Right, 06/11/2019). Restrictions Restrictions/Precautions Restrictions/Precautions: Weight Bearing, General Precautions, Fall Risk(snyder cath) Lower Extremity Weight Bearing Restrictions Right [...] Assistance: Independent(no device) Transfer Assistance: Independent Active Convertible Power Shovel Operator: Yes Additional Comments: pt may be staying [...] for falls, Left in chair OutComes Score [facility] Mobility Inpatient How much difficulty turning over [...] 3-5 steps with a railing?: A Lot [facility] Inpatient Mobility Raw Score : 17 [facility] Inpatient T-Scale Score : 42.13 Mobility Inpatient CMS 0-100% Score: 50.57 Mobility Inpatient CMS G-Code Modifier : CK [facility] Raw Score : 17 (06/11/19 4097) [facility] T-Scale Score : 42.13 (06/11/191436) Mobility [...] will ascend/descend 1 stair with railing at A for entrance into home Patient Goals Patient goals : to go home Therapy Time Individual Concurrent Group Co-treatment Time In 1336 Time Out 1357 Minutes 21 Bernice Dobson PT, DPT * Anjelica Cohen OTR/Sandra - 06/11/2019 2:34 PM EDT Occupational Therapy Occupational Therapy Initial Assessment Date: 06/11/2019 Patient Name: Sully Perdomo : 1955 Date of Service: 06/11/2019 Discharge Recommendations: IP Rehab, Continue to assess pending progress(vs [facility]) OT Equipment Recommendations Other: TBD Assessment Performance deficits / Impairments: Decreased functional mobility ;Decreased safe awareness;Decreased endurance;Decreased balance;Decreased high-level IADLs;Decreased ADL status Assessment: OT eval complete, pt tolerated session well. pt presents with decreased endurance, dynamic balance, functional independence and safety. pt requires min assist with functional transfers and mobility, pt would benefit from cont OT services, Recommend IP rehab vs [facility] pending progress Prognosis: Good Decision Making: Medium [...] surgery; sinus surgery; Hemorrhoid surgery; Diagnostic Cardiac Certified Nurse Practitioner Procedure (06/01/2019); shoulder surgery; and hip surgery (Right, 06/11/2019). Restrictions Restrictions/Precautions Restrictions/Precautions: Weight Bearing, General Precautions, Fall Risk(snyder cath) Lower Extremity Weight Bearing Restrictions Right [...] Assistance: Independent(no device) Transfer Assistance: Independent Active Convertible Power Shovel Operator: Yes Additional Comments: pt may be staying [...] seated EOB and pt required assist to ear pull machine operator alfonzo hips in standing Tone RUE RUE [...] Plan of Care supervision is transferred to [facility] Occupational Therapist. Goals and/or treatment plan was established in collaboration with patient/family/other representatives. AM-PAC Score [facility] Inpatient Daily Activity Raw Score: 16 (06/11/191433) [facility] Inpatient ADL T-Scale Score : 35.96 (06/11/191433) [...] In 1336 Time Out 1357 Minutes 21 ALETHEA Lacey/Sandra * Annmarie Viramontes RN - 06/11/2019 10:54 [...] RN - 06/11/2019 10:[address] mclain notified of cont pain & bp elevation, orders received & read back * Annmarie Viramontes RN - 06/11/2019 10:00 AM EDT Arrived in pacu via bed, monitoron with alarms on & shows nsr, pt medicated by Dr Mclain documented in this encounter Assessments Diagnosis Closed 2-part intertrochanteric fracture of right femur, initial encounter (HCC)- Primary Right hip pain Pain in joint, pelvic region and thigh Fall from ground level Abnormal nuclear stress test Other nonspecific abnormal cardiovascular system function study Closed right hip fracture, initial encounter ([facility]) Diagnosis Closed displaced intertrochanteric fracture of right femur with routine healing Aftercare for healing traumatic fracture of hip Right hip pain Pain in joint, pelvic region and thigh Diagnosis Injury of head, initial encounter Closed fracture of nasal bone, initial encounter Strain of neck muscle, initial encounter Summary Purpose Family History No Family History Records Found Relationship Condition Age at Onset Recorded Date/T hannah father Cardiac disease Unknown mother Malignant neoplasm Unknown brother Cardiac disease Unknown sister Chronic obstructive pulmonary disease Unk nown Chief Complaint and Reason for Visit Chief Complaint NICOTINE DEPENDENCE Chief Complaint CHRONIC CINUSITIS Chief Complaint CHRONIC CINUSITIS TOBACCO DEPENDENCY Chief Complaint CHRONIC CINUSITIS TOBACCO DEPENDENCY 1 Y FU ABN FINDING LUNGS Reason for Visit Mass of upper lobe o f left lung Asthma-COPD overlap syndrome Chief Complaint Admit Date 4 M FU August 30, 2024 2:07pm NEW LUNG NODULE 18MM September 23, 2024 7:27am 3-4 W F/U & Test Results September 30, 025 7:39am CANCER October 18, 2024 8:08am 4 WK FU/TEST RESULTS November 08, 2024 12: 41pm INT RAD December 19, 2024 8:0 4am Reason for Visit Admit Date Mass of upper lobe of left lung August 30, 2024 2:07pm Asthma-COPD overlap syndrome August 302023 2:07pm Hypoxia August 30, 2024 2:07pm Mass of upper lobe of left lung September 30, 2024 7:39am Asthma-COPD overlap syndrome September 7:39am Hypoxia September 30, 2024 7 :39am 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 September 30, 2024 7:39am Daytime hypersomnia November 08, 2024 12:4 1pm Mass of upper lobe of left lung November 12:41pm Asthma-COPD overlap syndrome November 08, 2024 12:41pm Hypoxia November 08, 2024 12:4 1pm Reason for Referral Specialty Diagnoses / Procedures Referred By Arianna t Referred To Contact Cardiology Diagnoses Emphysema, unspecified (HCC) Procedures Stress echocardiogram (TTE) exercise with contrast, bubble, strain, and 3D PRN NH ECHO TTHRC R-T 2D W/WO M-MODE COMPLETE REST&ST NH ECHO TTHRC R-T 2D W/WO M-MODE REST&STRS CONT ECG NH DOPPLER ECHOCARD PULSE WAVE W/SPECTRAL DISPLAY NH DOP ECHOCARD COLOR FLOW VELOCITY MAPPING NH CV STRS TST XERS&/OR RX CONT ECG W/O I&R NH CV STRS TST XERS&/OR RX CONT ECG TRCG ONLY NH CV STRS TST XERS&/OR RX CONT ECG I&R ONLY Jeremiah Martínez MD [address] [facility] [address] [place] [phone] Referral ID Status Reason Start Date Expiration Date V isits Requested Visits Authorized [id number] Authorized 06/29/2023 06/28/2024 1 1 Specialty Diagnoses / Procedures Referred By Contac t Referred To Contact Radiology Diagnoses Chronic sinusitis, unspecified Procedures MR brain wo contrast Jeremiah Martínez MD [address] [place] [phone] Referral ID Status Reason Start Date Expiration Date Visits Re quested Visits Authorized [id number] Closed 11/06/2023 11/05/2024 1 1 Specialty Diagnoses / Procedures Referred By Contac t Referred To Contact Radiology Diagnoses Abnormal results of function studies of other organs and systems Procedures MR brain w and wo contrast MR brain w contrast Jeremiah Martínez MD [address] [place] [id number] Referral ID Status Reason Start Date Expiration Date Visits Re quested Visits Authorized [id number] Closed 05/05/2024 07/04/2024 1 1 Additional Source Comments Reason for Visit (unrecogniz ed section and content) Reason Comments Dizziness Hip Pain Reason Comments Head Injury Fall Reason Comments Fall Head Injury Reason Comments Wrist Injury Reason Comments Shoulder Injury Reason Comments New Patient Right Specialty Diagnoses / Procedures Referred By Contac t Referred To Contact Sports Medicine Diagnoses Pain in right knee Procedures NH OFFICE/OUTPATIENT NEW HIGH MDM 60-74 MINUTES Jeremiah Martínez MD [address] [facility] [address] [place] [phone] Phillip Tobar MD [address] [place] [address] Referral ID Status Reason Start Date Expiration Date V isits Requested Visits Authorized [id number] Closed Specialty Services Required 11/24/2022 11/24/2023 1 1 Reason Comments Elevated lipase Lost 40 lbs in the l ast couple months. Having some stomach pains and bloating along with diarrhea. Labs scanned in yesterday. Reason Comments Polysomnogram Reason Onset Date Comments Scheduling 06/29/2023 [facility]ty Diagnoses / Procedures [facility] To Contact Cardiology Diagnoses Emphysema, unspecified (HCC) Procedures Stress echocardiogram (TTE) exercise with contrast, bubble, strain, and 3D PRN NH ECHO TTHRC R-T 2D W/WO M-MODE COMPLETE REST&ST NH ECHO TTHRC R-T 2D W/WO M-MODE REST&STRS CONT ECG NH DOPPLER ECHOCARD PULSE WAVE W/SPECTRAL DISPLAY NH DOP ECHOCARD COLOR FLOW VELOCITY MAPPING NH CV STRS TST XERS&/OR RX CONT ECG W/O I&R NH CV STRS TST XERS&/OR RX CONT ECG TRCG ONLY NH CV STRS TST XERS&/OR RX CONT ECG I&R ONLY Jeremiah Martínez MD [facility] [address] [place] [phone] Referral ID Status Reason Start Date Expiration Date V isits Requested Visits Authorized [id number] Authorized 06/29/2023 06/28/2024 1 1 Reason Comments Refill Request Reason Onset Date Comments Appointment Request 09/11/2023 Specialty Diagnoses / Procedures [facility] Referred To Contact Radiology Diagnoses Chronic sinusitis, unspecified Procedures MR brain wo contrast Jeremiah Martínez MD [address] [place] [phone] Referral ID Status Reason Start Date Expiration Date Visits Re quested Visits Authorized [id number] Closed 11/06/2023 11/05/2024 1 1 Reason Onset Date Comments OTher 01/13/2024 Inform Provider Reason Comments New Patient Sinus polyp Specialty Diagnoses / Procedures [facility] Referred To Contact Otolaryngology Diagnoses Other polyp of sinus Procedures CLINIC-OTHER Jeremiah Martínez MD [address] [facility] [address] [place] [phone] [facility] [address] [place] [address] Referral ID Status Reason Start Date Expiration Date V isits Requested Visits Authorized [id number] Pending Review 11/24/2023 11/23/2024 1 1 Specialty Diagnoses / Procedures Referred By Contac t Referred To Contact Radiology Diagnoses Abnormal results of function studies of other organs and systems Procedures MR brain w and wo contrast MR brain w contrast Jeremiah Martínez MD [address] [place] [address] Referral ID Status Reason Start Date Expiration Date Visits Re quested Visits Authorized [id number] Closed 05/05/2024 07/04/2024 1 1 Reason Comments Dizziness Facial Pain Reason Comments Appointment Call for appointment time and verification of instructional letter for 01/19/25 Reason Comments 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 - Other INFORMATION SOURCE (unrecogn ized section and content) DATE CREATED AUTHOR 2019 [employer] DATE CREATED AUTHOR AUTHOR'S ORGANIZ ATION 06/16/2022 [facility] DATE CREATED AUTHOR AUTHOR'S ORGANIZ ATION [facility]20[email or web address] DATE CREATED AUTHOR AUTHOR'S ORGANIZ ATION 01/26/2025 [facility] DATE CREATED AUTHOR AUTHOR'S ORGANIZ ATION 02/05/2025 [facility] DATE CREATED AUTHOR AUTHOR'S ORGANIZ ATION 02/08/2025 [facility] Ordered Prescriptions (unrec ognized section and content) Prescription Sig Dispensed Refills Start Date End Da te traMADol (ULTRAM) 50 MG tabletIndications:Right wrist fracture, closed, initial encounter Take 1 tablet by mouth every 4 hours as needed for Pain for up to 3 days. Intended supply: 3 days. Take lowest dose possible to manage pain 18 tablet 0 12/01/2021 12/04/2021 Scheduled Active and Recently Administ ered Medications (unrecognized section and content) Medication Order 11/29/2021 11/30/2021 12/01/2021 morphine sulfate (PF) injection 4 mg (COMPLETED) 4 mg, SubCUTAneous, ONCE, 1 dose, On 12/01/21 at 1004, If oral and IV narcotics ordered, use oral first and only use IV if oral is ineffective or cannot take oral. Do Not give oral and IV within 1 hour of each other unless specifically ordered. 1006 (Given - Provid er: Cass Lemus RN - Comment: scchepe) Scheduled Medication Order 10/12/2024 10/13/2024 10/14/2024 albuterol (2.5 MG/3ML) 0.083% nebulizer solution 2.5 mg 2.5 mg, Nebulization, Every 15 min, First dose on Thu10/14/24 at 1000, For 3 doses 1007 (Given - Provid er: Alona Mendosa RN)1020 (Given - Provider: Alona Mendosa RN)1044 (Given - Provider: Alona Mendosa RN) dexAMETHasone (Decadron) tablet 16 mg (COMPLETED) 16 mg, Oral, Once, On Thu10/14/24 at 1000, For 1 dose 1007 (Given - Provid er: Alona Mendosa RN) ipratropium-albuterol (Duo-Neb) 0.5-2.5 mg/3 mL nebulizer solution 3 mL (COMPLETED) 3 mL, Nebulization, Once, On Thu10/14/24 at 1000, For 1 dose 1007 (Given - Provid er: Alona Mendosa RN) lactated ringers bolus 1,000 mL (COMPLETED) 1,000 mL, IntraVENous, at 1,000 mL/hr, Administer over 1 Hours, Once, On Thu10/14/24 at 1000, For 1 dose 1009 (New Bag - Prov ider: Alona Mendosa, ELIZABETH)1109 (Stopped - Provider: Alona Mendosa RN) Care Teams (unrecognized sec tion and content) Solid Plasterer Relationship Specialty Start Date End Date Jeremiah Martínez MD [address] [place] [phone] PCP - General 02/25/17 Team Status: Active Member Role Status Dates Dr. Goldy Deleon MD Family Provider Active Dr. Jeremiah Martínez MD Primary Care Provider Active Team Status: Inactive Member Role Status Dates Dr. Jeremiah Martínez MD Primary Care Provider Active Ana Gilman PAINT SPECIALIST, PAINT SPECIALIST-C Attending Provider Active Solid Plasterer Relationship Specialty Start Date End Date Jeremiah Martínez MD [address] [place] [phone] PCP - General 02/25/17 Solid Plasterer Relationship Specialty Start Date End Date Jeremiah Martínez MD [address] [place] [address] [id number] PCP - General 02/25/17 Solid Plasterer Relationship Specialty Start Date End Date Jeremiah Martínez MD [address] [place] [address] [phone] PCP - General 02/25/17 Solid Plasterer Relationship Specialty Start Date End Date Jeremiah Martínez MD [address] [place] [address] [phone] PCP - General 02/25/17 Solid Plasterer Relationship Specialty Start Date End Date Jeremiah Martínez MD [address] [place] [address] 11094 PCP - General 02/25/17 Solid Plasterer Relationship Specialty Start Date End Date Jeremiah Martínez MD [address] [facility] [address] [place] [address] PCP - General Family Medicine 11/17/22 Solid Plasterer Relationship Specialty Start Date End Date Jeremiah Martínez MD [address] [facility] [address] [place] [address] PCP - General Family Medicine 11/17/22 Solid Plasterer Relationship Specialty Start Date End Date Jeremiah Martínez MD [address] [facility] [address] [place] [address] PCP - General Family Medicine 11/17/22 Solid Plasterer Relationship Specialty Start Date End Date Jeremiah Martínez MD [address] [place] [phone] PCP - General 02/25/17 Solid Plasterer Relationship Specialty Start Date End Date Jeremiah Martínez MD [address] [place] [address] PCP - General 02/25/17 Solid Plasterer Relationship Specialty Start Date End Date Jeremiah Martínez MD [address] [place] [id number] PCP - General 02/25/17 Solid Plasterer Relationship Specialty Start Date End Date Jeremiah Martínez MD [address] [facility] [address] [place] [address] PCP - General Family Medicine 11/17/22 Team Status: Inactive Member Role Status Dates Dr. Jeremiah Martínez MD Primary Care Provider Active Dr. Hai Hess MD Attending Provider, Refe rring Provider Active Solid Plasterer Relationship Specialty Start Date End Date Jeremiah Martínez MD [address] [place] [phone] PCP - General 02/25/17 Solid Plasterer Relationship Specialty Start Date End Date Jeremiah Martínez MD [address] [place] [address] [id number] PCP - General 02/25/17 Team Status: Inactive Member Role Status Dates Dr. Jeremiah Martínez MD Primary Care Provider Active Dr. Trevor Issa DO Attending Provider, Referring Pro vider Active Solid Plasterer Relationship Specialty Start Date End Date Jeremiah Martínez MD [address] [facility] [address] [place] [address] PCP - General Family Medicine 11/17/22 Team Status: Inactive Member Role Status Dates Dr. Jeremiah Martínez MD Primary Care Provider, Referr ing Provider Active Ana Gilman PAINT SPECIALIST, PAINT SPECIALIST-C Attending Provider Active Team Status: Inactive Member Role Status Dates Dr. Jeremiah Martínez MD Primary Care Provider Active Ana Gilman PAINT SPECIALIST, PAINT SPECIALIST-C Attending Provider, Referrin g Provider Active Solid Plasterer Relationship Specialty Start Date End Date Jeremiah Martínez MD [address] [place] [phone] PCP - General 02/25/17 Solid Plasterer Relationship Specialty Start Date End Date Jeremiah Martínez MD [address] [place] [address] PCP - General 02/25/17 Solid Plasterer Relationship Specialty Start Date End Date Jeremiah Martínez MD [address] [place] [address] PCP - General 02/25/17 Solid Plasterer Relationship Specialty Start Date End Date Jeremiah Martínez MD [address] [place] [address] PCP - General 02/25/17 Solid Plasterer Relationship Specialty Start Date End Date Jeremiah Martínez MD [address] [place] [address] [address] [place] [address] PCP - General Family Medicine 11/17/22 Solid Plasterer Relationship Specialty Start Date End Date Jeremiah Martínez MD [address] [place] [address] PCP - General 02/25/17 Solid Plasterer Relationship Specialty Start Date End Date Jeremiah Martínez MD [address] [place] [id number] PCP - General 02/25/17 Solid Plasterer Relationship Specialty Start Date End Date Jeremiah Martínez MD [address] [place] [id number] PCP - General 02/25/17 Solid Plasterer Relationship Specialty Start Date End Date Jeremiah Martínez MD [address] [place] [id number] PCP - General 02/25/17 Solid Plasterer Relationship Specialty Start Date End Date Jeremiah Martínez MD [address] [place] [id number] PCP - General 02/25/17 Team Status: Active Member Role Status Dates Dr. Jeremiah Martínez MD Primary Care Provider Active Team Status: Inactive Member Role Status Dates Dr. Jeremiah Martínez MD Primary Care Provider Active Start: August 30, 2024 End: August 30, 2024 Dr. Jeremiah Martínez MD Referring Provider Active Start: August 30, 2024 End: August 30, 2024 Ana Gilman PAINT SPECIALIST, PAINT SPECIALIST-C Attending Provider Active Start: August 30, 2024 End: August 30, 2024 Team Status: Inactive Member Role Status Dates Dr. Jeremiah Martínez MD Primary Care Provider Active Start: September 23, 2024 End: September 23, 2024 Ana Gilman PAINT SPECIALIST, PAINT SPECIALIST-C Attending Provider Active Start: September 23, 2024 End: September 23, 2024 Ana Gilman PAINT SPECIALIST, PAINT SPECIALIST-C Referring Provider Active Start: September 23, 2024 End: September 23, 2024 Team Status: Active Member Role Status Dates Dr. Jeremiah Martínez MD Primary Care Provider Active Start: September 23, 2024 Dr. Vanessa Chowdhury MD Attending Provider Active Start: September 23, 2024 Team Status: Inactive Member Role Status Dates Dr. Jeremiah Martínez MD Primary Care Provider Active Start: September 30, 2024 End: September 30, 2024 Dr. Jeremiah Martínez MD Referring Provider Active Start: September 30, 2024 End: September 30, 2024 Ana Gilman PAINT SPECIALIST, PAINT SPECIALIST-C Attending Provider Active Start: September 30, 2024 End: September 30, 2024 Team Status: Inactive Member Role Status Dates Dr. Jeremiah Martínez MD Primary Care Provider Active Start: October 18, 2024 End: October 18, 2024 Ana Gilman PAINT SPECIALIST, PAINT SPECIALIST-C Attending Provider Active Start: October 18, 2024 End: October 18, 2024 Ana Gilman PAINT SPECIALIST, PAINT SPECIALIST-C Referring Provider Active Start: October 18, 2024 End: October 18, 2024 Team Status: Inactive Member Role Status Dates Dr. Jeremiah Martínez MD Primary Care Provider Active Start: November 08, 2024 End: November 08, 2024 Dr. Jeremiah Martínez MD Referring Provider Active Start: November 08, 2024 End: November 08, 2024 Ana Gilman PAINT SPECIALIST, PAINT SPECIALIST-C Attending Provider Active Start: November 08, 2024 End: November 08, 2024 Team Status: Inactive Member Role Status Dates Dr. Jeremiah Martínez MD Primary Care Provider Active Start: December 19, 2024 End: December 19, 2024 Ana Gilman PAINT SPECIALIST, PAINT SPECIALIST-C Attending Provider Active Start: December 19, 2024 End: December 19, 2024 Ana Gilman PAINT SPECIALIST, PAINT SPECIALIST-C Referring Provider Active Start: December 19, 2024 End: December 19, 2024 Solid Plasterer Relationship Specialty Start Date End Date Jeremiah Martínez MD [facility] [address] [id number] PCP - General Family Medicine 11/17/22 Solid Plasterer Relationship Specialty Start Date End Date Jeremiah Martínez MD [facility] [address] [id number] PCP - General Family Medicine 11/17/22 Solid Plasterer Relationship Specialty Start Date End Date Jeremiah Martínez MD [address] [place] [id number] PCP - General 02/25/17 Solid Plasterer Relationship Specialty Start Date End Date Jeremiah Martínez MD [address] [place] [address] PCP - General Family Medicine 11/17/22 Source Comments (unrecognize d section and content) In the event this informatio n is protected by the Federal Confidentiality of Alcohol and Drug Abuse Patient Records regulations: The Federal rules restrict any use of the information to criminally investigate or prosecute any alcohol or drug abuse patient.[facility] the event this information is protected by the Federal Confidentiality of Alcohol and Drug Abuse Patient Records regulations: The Federal rules restrict any use of the information to criminally investigate or prosecute any alcohol or drug abuse patient.[facility] the event this information is protected by the Federal Confidentiality of Alcohol and Drug Abuse Patient Records regulations: The Federal rules restrict any use of the information to criminally investigate or prosecute any alcohol or drug abuse patient.[facility] the event this information is protected by the Federal Confidentiality of Alcohol and Drug Abuse Patient Records regulations: The Federal rules restrict any use of the information to criminally investigate or prosecute any alcohol or drug abuse patient.[facility] the event this information is protected by the Federal Confidentiality of Alcohol and Drug Abuse Patient Records regulations: The Federal rules restrict any use of the information to criminally investigate or prosecute any alcohol or drug abuse patient.[facility] the event this information is protected by the Federal Confidentiality of Alcohol and Drug Abuse Patient Records regulations: The Federal rules restrict any use of the information to criminally investigate or prosecute any alcohol or drug abuse patient.[facility] the event this information is protected by the Federal Confidentiality of Alcohol and Drug Abuse Patient Records regulations: The Federal rules restrict any use of the information to criminally investigate or prosecute any alcohol or drug abuse patient.[facility] the event this information is protected by the Federal Confidentiality of Alcohol and Drug Abuse Patient Records regulations: The Federal rules restrict any use of the information to criminally investigate or prosecute any alcohol or drug abuse patient.[facility] the event this information is protected by the Federal Confidentiality of Alcohol and Drug Abuse Patient Records regulations: The Federal rules restrict any use of the information to criminally investigate or prosecute any alcohol or drug abuse patient.[facility] the event this information is protected by the Federal Confidentiality of Alcohol and Drug Abuse Patient Records regulations: The Federal rules restrict any use of the information to criminally investigate or prosecute any alcohol or drug abuse patient.[facility] the event this information is protected by the Federal Confidentiality of Alcohol and Drug Abuse Patient Records regulations: The Federal rules restrict any use of the information to criminally investigate or prosecute any alcohol or drug abuse patient.[facility] the event this information is protected by the Federal Confidentiality of Alcohol and Drug Abuse Patient Records regulations: The Federal rules restrict any use of the information to criminally investigate or prosecute any alcohol or drug abuse patient.[facility] Goals (unrecognized section and content) Goals may be documented in a n alternate sectionGoals may be documented in an alternate sectionGoals may be documented in an alternate sectionGoals may be documented in an alternate sectionGoals may be documented in an alternate section FOR RECORDS PERTAINING TO PATIENTS WHO ARE [...] BE BASED ON THE PRIMARY CLINICAL RECORDS. [facility] [employer] [facility]. provides no warranty or guarantee of the accuracy or completeness of information in this document.
[2025-02-10 08:24] LABS: Absolute Lymphocyte Count 2.43 X10^3/uL (0.83-4.51); Absolute Neutrophil Count 4.2 X10^3/uL (2.0-7.7); Basophil# 0.09 X10^3/uL; Basophil% 1.2 % (0-1); Eosinophil# 0.11 X10^3/uL; Eosinophils% 1.5 % (0-5); Hematocrit 42.5 % (37-47); Hemoglobin 14.4 g/dL (12.0-15.0); Lymphocyte # 2.43 X10^3/ul (0.83-4.51); Lymphocyte % 32.7 % (19-41); Mean Corp Hgb Conc 33.9 g/dL (32-36); Mean Corpuscular Hgb 32.3 pg (27.0-32.0); Mean Corpuscular Volume 95.3 fL (81-99); Mean Platelet Vol. 8.4 fl (6.2-12.0); Monocyte% 8.1 % (0-10); NRBC Flagged by Analyzer 0 % (0-5); Neutrophil # 4.19 X10^3/uL (2.7-7.7); Neutrophil % 56.2 % (47-70); Platelet Count 349 K/mm3 (150-450); RBC Distribution Width CV 13.1 % (11.6-14.6); RBC Distribution Width SD 46.1 fl (35.1-43.9); Red Blood Count 4.46 M/mm3 (4.2-5.4); White Blood Count 7.4 K/mm3 (4.4-11.0)
[2025-02-14 01:07] LABS: Alternaria alternata <0.10 kU/L (Class 0); Bermuda Grass <0.10 kU/L (Class 0); Bluegrass, Kentucky <0.10 kU/L (Class 0); Cat Hair/Dander, Standard <0.10 kU/L (Class 0); D farinae Mite <0.10 kU/L (Class 0); D pteronyssinus <0.10 kU/L (Class 0); Dog Epithelia <0.10 kU/L (Class 0); Elm, American White <0.10 kU/L (Class 0); Mouse Urine <0.10 kU/L (Class 0); Oak, White <0.10 kU/L (Class 0); Plantain, English <0.10 kU/L (Class 0); Ragweed, Short/Common <0.10 kU/L (Class 0)
[2025-02-15 16:09] LABS: Aspirgillus flavus Negative (Neg:<1:1); Aspirgillus fumigatus Negative (Neg:<1:1); Aspirgillus niger Negative (Neg:<1:1); Cytoplasmic Ab (C-ANCA) <1:20 titer (Neg:<1:20); Immunoglobulin E 57 IU/mL (6-495); Perinuclear Ab (P-ANCA) <1:20 titer (Neg:<1:20)
== END | disposition home or self-care (01) ==
PROVIDERS: PCP Family Medicine; Referring Provider Nurse Practitioner Acute Care; Visit Provider Nurse Practitioner Acute Care
DX: R50.9 Fever, unspecified (principal); J44.9 Chronic obstructive pulmonary disease, unspecified
CPT/HCPCS: 36415; 82785; 85025; 86003; 86037; 86606; 87631

== ENCOUNTER → 2025-03-07 | Outpatient (CLI) | payer MEDICARE, MEDICAID, SELFPAY ==
--- OUTSIDE RECORDS SUMMARY | 2025-03-07 06:49 | XMS RPT_ITS | CCD ---
Author Organization [facility] Care Team Providers Care Costume Shop Manager Name Role Phone Jeremiah Martínez Primary Care [...] Provider Jeremiah Martínez MD Primary Care Provider Dr. Jeremiah Martínez Primary Care Provider Dr. Jeremiah Martínez Referring Provider Kalina MEDICAL INSURANCE BILLER, MEDICAL INSURANCE BILLER-C Ana Attending Provider Jeremiah Martínez MD Primary Care Provider Dr. Jeremiah Martínez MD Primary Care Provider Un available GunDr. Jeremiah richardson MD Referring Provider Unava ilable Kalina MEDICAL INSURANCE BILLER-CAna Attending Provider Kalina PEREZ-CAna Referring Provider Dr. Vanessa Chowdhury MD Attending Provider JEREMIAH MARTÍNEZ Primary Care Unavailable GOPI BESS Attending Unavailabl e SERGIO MENESES Referring Unavailable JEREMIAH MARTÍNEZ Primary Care Unavailable SONIA FERREIRA Attending Unavailable GunDr. Jeremiah richardson MD Primary Care Provider Un available Gunning Dr. Jeremiah FERNANDEZ Referring Provider Unava ilable Gilman MEDICAL INSURANCE BILLER-C, Ana Attending Provider Gilman MEDICAL INSURANCE BILLER-C, Ana Referring Provider Gilman MEDICAL INSURANCE BILLER, Ana Attending Unavailable Gilman MEDICAL INSURANCE BILLER, Ana Referring Unavailable Gunning, Jeremiah Primary Care Unavailable Gunning, Jeremiah Referring Unavailable Gilman MEDICAL INSURANCE BILLER, Ana Attending Unavailable Gunning, Jeremiah Primary Care Unavailable Gilman MEDICAL INSURANCE BILLER, Ana Consulting Unavailable Gilman MEDICAL INSURANCE BILLER, Ana Referring Unavailable Gunning, Jeremiah Primary Care Unavailable Dereck Abreu Attending Unavailable Gilman MEDICAL INSURANCE BILLER, Ana Referring Unavailable Gilman MEDICAL INSURANCE BILLER, Ana Attending Unavailable Gunning, Jeremiah Primary Care Unavailable Gilman MEDICAL INSURANCE BILLER, Ana Attending Unavailable Gunning, Jeremiah Primary Care Unavailable Gunning, Jeremiah Referring Unavailable Gunning, Jeremiah Referring Unavailable Gilman MEDICAL INSURANCE BILLER, Ana Attending Unavailable Gunning, Jeremiah Primary Care Unavailable Gilman MEDICAL INSURANCE BILLER, Ana Attending Unavailable Gunning, Jeremiah Primary Care Unavailable Gunning, Jeremiah Referring Unavailable Gilman MEDICAL INSURANCE BILLER, Ana Attending Unavailable Gunning, Jeremiah Referring Unavailable Gunning, Jeremiah Primary Care Unavailable Vanessa Chowdhury Unavailable Gunning, Jeremiah Primary Care Unavailable Gilman MEDICAL INSURANCE BILLER, Ana Attending Unavailable Gilman MEDICAL INSURANCE BILLER, Ana Referring Unavailable Gunning, Jeremiah Primary Care Unavailable Gunning, Jeremiah Primary Care Unavailable Gilman MEDICAL INSURANCE BILLER, Ana Referring Unavailable Gilman MEDICAL INSURANCE BILLER, Ana Attending Unavailable Gunning, Jeremiah Primary Care Unavailable Gilman MEDICAL INSURANCE BILLER, Ana Attending Unavailable Gilman MEDICAL INSURANCE BILLER, Ana Referring Unavailable Gilman MEDICAL INSURANCE BILLER, Ana Attending Unavailable Gunning, Jeremiah Primary Care Unavailable Gilman MEDICAL INSURANCE BILLER, Ana Referring Unavailable Gilman MEDICAL INSURANCE BILLER, Ana Attending Unavailable Gilman MEDICAL INSURANCE BILLER, Ana Referring Unavailable Gunning, Jeremiah Primary Care Unavailable Gilman MEDICAL INSURANCE BILLER, Ana Attending Unavailable Gilman MEDICAL INSURANCE BILLER, Ana Referring Unavailable Gunning, Jeremiah Primary Care Unavailable Gilman MEDICAL INSURANCE BILLER, Ana Attending Unavailable Gilman MEDICAL INSURANCE BILLER, Ana Referring Unavailable Gunning, Jeremiah Primary Care Unavailable Gilman MEDICAL INSURANCE BILLER, Ana Attending Unavailable Gilman MEDICAL INSURANCE BILLER, Ana Referring Unavailable Gunning, Jeremiah Primary Care Unavailable Gilman MEDICAL INSURANCE BILLER, Ana Attending Unavailable Gunning, Jeremiah Primary Care Unavailable Gilman MEDICAL INSURANCE BILLER, Ana Referring Unavailable GUNNING, JEREMIAH Attending Unavailable GUNNING, JEREMIAH Referring Unavailable GUNNING, JEREMIAH Primary Care Unavailable GUNNING, JEREMIAH Attending Unavailable GUNNING, JEREMIAH Referring Unavailable GUNNING, JEREMIAH Primary Care Unavailable SERGIO MENESES Attending Unavailable SERGIO MENESES Referring Unavailable GUNNING, JEREMIAH Primary Care Unavailable GUNNING, JEREMIAH Attending Unavailable GUNNING, JEREMIAH Referring Unavailable GUNNING, JEREMIAH Primary Care Unavailable MASIN, SERGIO Attending Unavailable SERGIO MENESES Referring Unavailable CRISTOPHER, JEREMIAH Primary Care Unavailable JEREMIAH MARTÍNEZ Attending Unavailable JEREMIAH MARTÍNEZ Referring Unavailable GUNWAYNE, JEREMIAH Primary Care Unavailable GUNWAYNE, JEREMIAH Primary Care Unavailable HARPAL CUEVAS Attending Unavailable Allergies Allergy Classification Reported Allergen(s) Allergy Type Date of Onset Reaction(s) Facility Dihydrofolate Reductase Inhibitors (antibiotic) (1 source) Trimethoprim Drug Allergy 11-04-19 [facility] Doxycycline (1 source) Doxycycline Drug Allergy 01-21-20 24 Nausea And Vomiting [facility] Opioid Agonists (2 sources) Codeine Drug Allergy 04-15-20 06 [facility] Pen[facility] ([facility]iotic) (2 sources) Penicillins Drug Allergy 04-15-20 06 Rash, Hives [facility] Quinolones (antibiotic) (3 sources) levoFLOXacin Drug Allergy 12-18-19 17 Swelling, Anaphylaxis [facility] Serotonin Reuptake Inhibitors (SSRIs) (1 source) Escitalopram Drug Allergy 12-17-19 23 Anaphylaxis [facility] Sulfonamides (antibiotic) (2 sources) Sulfonamides (Antibiotic) Drug Allergy 02-28-20 16 Swelling, Anaphylaxis [facility] Tetracyclines (antibiotic) (1 source) Tetracycline Drug Allergy 11-04-19 22 [facility] (20 sources) Codeine; Translations: [CODEINE] Drug Allergy 04-15-20 06 Other (See Comments) [place], [place] Comment on above: HEART ATTACK SYMPTO MS (20 sources) levoFLOXacin; Translations: [LEVOFLOXACIN IN D5W] Drug Allergy 12-18-19 17 Swelling [place], [place] (14 sources) Penicillins; Translations: [PENICILLINS] Propensity to adverse reactions to drug 04-15-20 06 Rash [place], [place] (13 sources) Sulfonamides (Antibiotic) Propensity to adverse reactions to drug 02-28-20 16 Swelling [place], [place] (8 sources) Penicillins Propensity to adverse reactions 04-15-20 06 Hives [facility] (20 sources) Sulfonamides (Antibiotic); Translations: [SULFA (SULFONAMIDE ANTIBIOTICS)] Drug Allergy 02-28-20 16 Anaphylaxis, Swelling [facility] (18 sources) Budesonide; Translations: [BUDESONIDE] Drug Allergy 11-04-19 22 Other: See Comments [facility] (20 sources) levoFLOXacin Drug Allergy 12-18-19 17 Anaphylaxis, Swelling [facility] (6 sources) Penicillins Allergy to substance 11-04-19 22 Hives [facility] (6 sources) Sulfamethoxazole Drug Allergy 11-04-19 22 Anaphylaxis [facility] (20 sources) Tetracycline; Translations: [TETRACYCLINE] Drug Allergy 11-04-19 22 Vomiting [facility] (20 sources) Trimethoprim Drug Allergy 11-04-19 22 Anaphylaxis [facility] (20 sources) Budesonide Allergy to substance 11-04-19 22 [facility] (20 sources) Escitalopram; Translations: [ESCITALOPRAM] Drug Allergy 12-17-19 23 Anaphylaxis [facility] (20 sources) Penicillins Drug Allergy 04-15-20 06 Hives, Rash [facility] (20 sources) Doxycycline Drug Allergy 01-21-20 24 Nausea And Vomiting [facility] (6 sources) Penicillins Propensity to adverse reactions 04-15-20 06 [facility] (1 source) Budesonide Drug Allergy 08-30-20 24 [facility] (1 source) Codeine Drug Allergy 11-09-19 25 [facility] (1 source) levoFLOXacin Drug Allergy 11-09-19 25 [facility] (1 source) Penicillins Drug allergy (disorder) 11-09-19 25 [facility] (1 source) Sulfamethoxazole Drug Allergy 11-09-19 25 [facility] (1 source) Tetracycline Drug Allergy 11-09-19 25 [facility] (1 source) Trimethoprim Drug Allergy 11-09-19 25 [facility] Medications Current Medications Medication Drug Class(es) Dates Sig (Normalized) Sig (Original) acetaminophen 325 mg / HYDROcodone bitartrate 5 mg oral tablet (20 sources) Opioid Agonist Start: 08-13-2022 take 1 tablet by mouth every four to six hours for pain HYDROcodone-aceta minophen (Moore) 5-325 MG tablet take 1 tablet by [...] 1:00am Start: 10-23-2020 End: 09-30-2024 Albuterol Sulfate (Proair Hf a) 90 mcg/actuation HFA aerosol inhaler Discontinued 2 NMA INHALATION EVERY 6 HOURS as needed for shortness of breath or wheezing 8.5 November 04, 2021 10:37am September 30, 2024 9:14am Start: 10-23-2020 End: 11-04-2021 take 1 puff(s) by inhalation every six hours Albuterol Sulfate (Proair Hfa) 90 mcg/actuation HFA aerosol inhaler Discontinued 2 PUFF INHALATION EVERY 6 HOURS January 09, 2021 12:00am November 04, 2021 10:38am Comment on above: inhale 2 puffs by mo uth and INTO THE LUNGS every 4 hours if needed for wheezing amLODIPine 10 mg oral tablet (20 sources) Dihydropyridine Calcium Channel Rachel Start: take 1 tablet by mouth once daily amLODIPine (Norvasc) 10 MG tablet Take 10 mg by mouth daily. 09/19/2022 Active Start: 10-23-2020 End: 01-16-2021 take 1 tablet by mouth once amLODIPine (NORVASC) 10 mg tablet Take 1 tablet by mouth every afternoon. 01/27/2023 Active Start: 06-11-2019 amLODIPine (NO RVASC) tablet [...] 11/25/2022 Active benzonatate 100 mg oral capsule (6 sources) Non-narcotic Antitussive Start: 01-09-2021 Benzonatate (Tessalon [...] Start: 11-12-2022 take 1 tablet by alexa th once daily clonazePAM (KlonoPIN) 0.5 MG tablet [...] 2021 6:43am take 1 tablet by alexa th twice daily as needed cyclobenzaprine (FLEXERIL) 5 mg tablet 1 tablet as needed Orally 2 times a day for 30 days Active Comment on above: 1 tablet as needed O rally 2 times a day for 30 days dexamethasone 6 mg oral tablet (7 sources) Corticosteroid Start: 10-14-19 End: 10-19-19 take [...] Active fexofenadine hydrochloride 180 mg oral tablet (14 sources) Histamine-1 Receptor Antagonist Start: 04-15-2006 COOKIE 180 MG TAB Indications: Urticaria, unspecified , Angioneurotic edema not elsewhere classified Take 1 by mouth each morning 30 3 04/15/2006 Active Comment on above: Take 1 by mouth each morning fluticasone propionate 0.05 mg/actuat metered dose nasal spray (20 sources) Corticosteroid Start: 02-20-2025 take 2 spray(s) nasal route once daily fluticasone (Flonase) 50 MCG/ACT nasal spray INSTILL 2 SPRAYS INTO EACH NOSTRIL DAILY 48 mL 02/20/2025 Active Start: 11-04-2021 End: 01-20-2025 Fluticasone Propionate 50 mc g/actuation spray,suspension Active 2 NMA INTRANASAL DAILY November 04, 2021 1:00am Start: 11-04-2021 Fluticasone Pr opionate Active 2 [...] / vilanterol 0.025 mg/actuat dry powder inhaler (13 sources) Anticholinergic, Corticosteroid, beta2-Adrenergic Agonist Fluticasone-Umeclidi n-V ilant (Trelegy Ellipta) 100-62.5-25 MCG/ACT aerosol powder 1 puff Every 24 hours. Active Fcucktgmwkw-Tthrxwygy-Cpmr nter (4 sources) Start: 09-30-2024 Wyogsdwqbla-Lqwfmoqqy-U ilanter (Trelegy Ellipta) 200-62.5-25 mcg blister with device Active 1 NMA INHALATION DAILY September 30, 2024 1:00am Start: 03-25-2024 End: 08-30-2024 Diossilsiot-Offmuwqzw-Htdrac er (Trelegy Ellipta) 200-62.5-25 mcg blister with device Discontinued 1 NMA INHALATION DAILY 60 March 25, 2024 12:00am August 30, 2024 3:14pm 12 hr guaiFENesin 600 mg extended release oral tablet (13 sources) take 1 tablet by mouth every twelve hours as needed guaiFENesin (Mucinex) 600 MG 12 hr tablet Take 1 tablet by mouth every 12 hours as needed. Active hydroCHLOROthiazide 12.5 mg / lisinopril 10 mg oral tablet (10 sources) Thiazide Diuretic, Angiotensin Converting Enzyme Inhibitor Start: 02-11-06 End: take 1 tablet by mouth once daily lisinopril-hydroCH LOROthiazide 10-12.5 MG tablet Take 1 tablet by mouth daily. 10/10/2024 Active hydrOXYzine hydrochloride 25 mg oral tablet (20 sources) Antihistamine Start: take 3 tablets by mouth at bedtime hydrOXYzine HCl (Atarax) 25 MG tablet take 3 tablets by mouth at bedtime if needed 11/12/2022 Active loratadine 10 mg oral tablet (13 sources) take 1 tablet by mouth once [...] Start: 07-06-2023 take 1 capsule by mo uth once daily omeprazole (PRILOSEC) 20 mg capsule [...] before eating. take 1 capsule by mo uth once daily TAKE ON EMPTY STOMACH AT LEAST 30 MINUTES BEFORE EATING oxyCODONE hydrochloride 5 mg oral tablet (2 sources) Opioid Agonist Start: 06-12-20 End: 06-15-20 take 1 tablet by mouth every six hours as needed for pain oxyCODONE (ROXICODONE) 5 MG immediate release tablet Indications: Closed 2-part intertrochanteric fracture of proximal end of right femur, initial encounter ([facility]) Take 1 tablet by mouth every 6 hours as needed for Pain for up to 3 days. 28 tablet 0 06/12/2019 06/15/2019 Active Start: 06-11-2019 oxyCODONE (KENZIE ICODONE) immediate release tablet 5 mg predniSONE 20 mg oral tablet (6 sources) Start: 11-08-2024 Prednisone 20 mg tablet [...] days pseudoephedrine hydrochloride 30 mg oral tablet (13 sources) alpha-Adrenergic Agonist Start: 10-14-2024 take 1 tablet by mouth every six hours as needed for congestion pseudoephedrine (Sudafed) 30 MG tablet Take 1 tablet (30 mg) by mouth every 6 hours as needed for congestion. 30 tablet 10/14/2024 Active ramelteon 8 mg oral tablet (20 sources) Melatonin Receptor Agonist Start: 12-22-2022 take 0.5 tablet by mouth at bedtime, then take 1 tablet by mouth at bedtime ramelteon (Rozerem) 8 MG tablet take 1/2 tablet by mouth at bedtime for 2 NIGHTS then take 1 tablet by mouth at bedtime 08/28/2022 Active Roflumilast (2 sources) Phosphodiesterase 4 Inhibitor Start: 11-08-2024 take 1 tablet by mouth once daily Roflumilast (Daliresp) 500 mcg tablet Active 500 ug PO DAILY November 08, 2024 1:00am rosuvastatin calcium 10 mg oral tablet (2 sources) HMG-CoA Reductase Inhibitor Start: 11-08-2024 Rosuvastatin 10 [...] Active vitamin b12 0.1 mg oral tablet (13 sources) Vitamin B12 take 1 tablet by mouth once daily cyanocobalamin (VITAMIN B-12) 100 mcg tab Take 100 mcg by mouth once daily. Active Comment on above: Take 100 mcg by mout h once daily. Completed/Discontinued Medications Medication Drug Class(es) Dates Sig (Normalized) Sig (Original) acetaminophen 500 mg oral tablet (15 sources) Start: 01-18-2021 End: 01-18-2021 acetaminophen (TYLENOL) tablet 1,000 mg Start: 06-11-2019 acetaminophen (TYLENOL) tablet 1,000 mg acetaminophen (T YLENOL) 325 mg cap Take by mouth. Active Comment on above: Take by mouth. albuterol 0.833 mg/ml / ipratropium bromide 0.167 mg/ml inhalation solution (14 sources) Anticholinergic, beta2-Adrenergic Agonist Start: 10-14-2024 End: [...] (LIST CLEANUP) bisacodyl 10 mg rectal suppository (6 sources) Stimulant Laxative Start: 01-09-2021 End: 01-16-2021 Bisacodyl (Dulcolax (Bisacodyl)) 10 mg suppository Discontinued 10 mg RC DAILY as needed January 09, 2021 12:00am January 16, 2021 6:42am budesonide 0.5 mg/ml inhalation suspension (6 sources) Corticosteroid Start: 02-26-2021 End: 11-04-2021 take 1 mg by inhalation twice daily Budesonide 1 mg/2 mL suspension for nebulization Discontinued 1 mg INHALATION TWICE A DAY 60 February 26, 2021 12:00am November 04, 2021 10:38am Budesonide-Formote rol (6 sources) Corticosteroid, beta2-Adrenergic Agonist Start: 01-09-2021 End: [...] hydrochloride 120 mg extended release oral tablet (6 sources) alpha-Adrenergic Agonist, Histamine-1 Receptor Antagonist Start: [...] 1 dose ibuprofen 400 mg oral tablet (17 sources) Nonsteroidal Anti-inflammatory Drug Start: 06-11-2019 End: [...] daily. sodium chloride 0.111 meq/ml nasal spray (7 sources) Start: 10-23-2020 End: 01-16-2021 Sodium Chloride [...] unspecified with intoxication, uncomplicated] Episodic Anxiety disorders (12 sources) Panic disorder; Translations: [Panic disorder [episodic paroxysmal anxiety]] 01-09-2021 Chronic Blindness and vision defects (1 source) Unspecified visual disturbance; Translations: [Visual disturbance] Onset: 12-30-2024 Episodic Cataract (6 sources) Cataract; Translations: [Unspecified cataract] 01-09-2021 Chronic Chronic obstructive pulmonary disease and bronchiectasis (20 sources) Asthma-chronic obstructive pulmonary disease overlap syndrome; Translations: [Chronic obstructive pulmonary disease, unspecified] Onset: 11-08-2024 02-26-2021 Chronic Conditions associated with dizziness or vertigo (8 sources) Dizziness and giddiness; Translations: [Dizziness and giddiness] Onset: 06-11-2022 Episodic Diabetes mellitus without complication (6 sources) Type 2 diabetes mellitus; Translations: [Type 2 diabetes mellitus without complications] 01-09-2021 Chronic Disorders of lipid metabolism (6 sources) Hyperlipidemia; Translations: [Hyperlipidemia, unspecified] 01-09-2021 Chronic Essential hypertension (20 sources) Hypertensive disorder; Translations: [Essential (primary) hypertension] Onset: 05-30-2019 05-30-2019 Chronic External cause codes: Fall (1 source) Fall on same level; Translations: [Fall from ground level] Fever of unknown origin (1 source) Fever, unspecified; Translations: [Fever, unspecified] Onset: 02-16-2025 Episodic Immunizations and screening for infectious disease (6 sources) Exposure to sexually transmissible disorder; Translations: [Contact with and (suspected) exposure to infections with a predominantly sexual mode of transmission] 01-09-2021 Episodic Intestinal obstruction without hernia (6 sources) Paralytic ileus; Translations: [Paralytic ileus] 01-09-2021 Episodic Joint disorders and dislocations; trauma-related (2 sources) Loose body in knee, right knee; Translations: [Loose body in knee, right knee] Onset: 09-20-2021 Chronic Malaise and fatigue (8 sources) Fatigue; Translations: [Other fatigue] 01-09-2021 Episodic Mood disorders (6 sources) Depressive disorder; Translations: [Depression] 01-09-2021 Chronic Open wounds of head; neck; and trunk (1 source) Scalp laceration; Translations: [Laceration without foreign body of scalp, initial encounter] Episodic Osteoarthritis (10 sources) Unspecified osteoarthritis, unspecified site; Translations: [Unilateral primary osteoarthritis, right knee] Onset: 09-20-2021 Chronic Other acquired deformities (6 sources) Incompetence of nasal valve; Translations: [Acquired deformity of nose] 10-30-2020 Episodic Other and ill-defined cerebrovascular disease (6 sources) Cerebral arterial aneurysm; Translations: [Cerebral aneurysm, nonruptured] Onset: 01-02-2025 01-02-2025 Chronic Other and ill-defined cerebrovascular disease (1 source) Cerebral aneurysm, nonruptured; Translations: [Cerebral aneurysm, nonruptured (HCC)] Onset: 01-02-2025 Chronic Other connective tissue disease (6 sources) Bilateral cramp of muscle of lower limbs; Translations: [Cramp and spasm] 01-09-2021 Episodic Other connective tissue disease (6 sources) Fibromyositis; Translations: [Fibromyalgia] 01-09-2021 Episodic Other [...] of left eyelid] Onset: 12-30-2024 Episodic Other gastrointestinal disorders (6 sources) Constipation; Translations: [Constipation, unspecified] 01-09-2021 Episodic Other gastrointestinal disorders (1 source) Altered bowel function; Translations: [Change in bowel habit] 04-16-2023 Episodic Other injuries and conditions due to external causes (2 sources) Injury of head; Translations: [Unspecified injury of head, initial encounter] Episodic Other lower respiratory disease (12 sources) Nodule of lung; Translations: [Solitary pulmonary nodule] 02-26-2021 Episodic Other lower respiratory disease (12 sources) Hypoxia; Translations: [Hypoxemia] 10-30-2020 Episodic Other lower respiratory disease (1 source) Hypoxemia; Translations: [Hypoxemia] 11-27-2022 Episodic Other lower respiratory disease (7 sources) Lung mass; Translations: [Other nonspecific abnormal finding of lung field] 12-01-2023 Episodic Other lower respiratory disease (1 source) Dyspnea; Translations: [Shortness of breath] 06-21-2024 Episodic Other lower respiratory disease (2 sources) Solitary pulmonary nodule; Translations: [Solitary pulmonary nodule] Onset: 11-08-2024 Episodic Other nervous system disorders (2 sources) Other chronic pain; Translations: [Other chronic pain] Onset: 12-01-2021 Chronic Other nervous system disorders (6 sources) Carpal tunnel syndrome; Translations: [Carpal tunnel syndrome, unspecified upper limb] 01-09-2021 Chronic Other nervous system disorders (6 sources) Abnormal sensation; Translations: [Other disturbances of skin sensation] 01-09-2021 Episodic Other non-traumatic joint disorders (8 sources) Shoulder pain; Translations: [Pain in unspecified shoulder] 01-09-2021 Episodic Other non-traumatic joint disorders (6 sources) Pain in right knee; Translations: [Pain in joint, lower leg] Episodic Other non-traumatic joint disorders (2 sources) Pain in unspecified shoulder; Translations: [Pain in unspecified shoulder] Onset: 03-03-2025 Episodic Other non-traumatic joint disorders (2 sources) Pain in right hip joint; Translations: [Right hip pain] Other nutritional; endocrine; and metabolic disorders (1 source) Abnormal weight loss; Translations: [Abnormal weight loss] 04-16-2023 Episodic Other skin disorders (3 sources) Disorder of left lower extremity; Translations: [Localized swelling, mass and lump, left lower limb] 03-18-2023 Episodic Other upper respiratory disease (6 sources) Allergic rhinitis; Translations: [Allergic rhinitis, unspecified] 01-09-2021 Chronic Other upper respiratory disease (6 sources) Hypertrophy of nasal turbinates; Translations: [Hypertrophy of nasal turbinates] 10-30-2020 Episodic Other upper respiratory disease (6 sources) Polyp of nasal cavity and/or nasal sinus; Translations: [Nasal polyp, unspecified] 10-30-2020 Episodic Other upper respiratory disease (6 sources) Deviated nasal septum; Translations: [Deviated nasal septum] 10-30-2020 Episodic Other upper respiratory infections (13 sources) Chronic pansinusitis; Translations: [Chronic pansinusitis] 10-30-2020 Chronic Other upper respiratory infections (10 sources) Inflammatory disorder of upper respiratory tract; Translations: [Acute upper respiratory infection, unspecified] Onset: 10-14-2024 10-14-2024 Episodic Residual codes; unclassified (4 sources) Daytime hypersomnia; Translations: [Hypersomnia, unspecified] 11-08-2024 Chronic Residual codes; unclassified (2 sources) Hypersomnia, unspecified; Translations: [Hypersomnia, unspecified] Onset: 11-08-2024 Chronic Residual codes; unclassified (6 sources) Insomnia; Translations: [Insomnia, unspecified] 01-09-2021 Episodic Residual codes; unclassified (6 sources) Tobacco user; Translations: [Tobacco use] 01-09-2021 Episodic Rheumatoid arthritis and related disease (2 sources) Juvenile arthritis, unspecified, right knee; Translations: [Juvenile arthritis, unspecified, right knee] Onset: 09-20-2021 Chronic Screening and history of mental health and substance abuse codes (7 sources) Tobacco use and exposure - finding; Translations: [Personal history of nicotine dependence] Onset: 01-02-2025 01-02-2025 Episodic Skull and face fractures (1 source) Closed fracture of nasal bones; Translations: [Closed fracture of nasal bone, initial encounter] Episodic Spondylosis; intervertebral disc disorders; other back problems (6 sources) Degeneration of cervical intervertebral disc; Translations: [Other cervical disc degeneration, unspecified cervical region] 01-09-2021 Chronic Spondylosis; intervertebral disc disorders; other back problems (20 sources) Cervicalgia; Translations: [Cervical radiculitis] Onset: 12-01-2021 Episodic Sprains and strains (1 source) Strain of neck muscle; Translations: [Strain of neck muscle, initial encounter] Episodic Substance-related disorders (20 sources) Nicotine dependence, unspecified, uncomplicated; Translations: [Nicotine dependence] Onset: 12-01-2021 Chronic Comment on above: currently 1/2 ppd Viral infection (6 sources) Herpes simplex; Translations: [Herpesviral infection, unspecified] [...] knee, init] Onset: 09-20-2021 Episodic Nutritional deficiencies (4 sources) Cachexia; Translations: [Cachexia] Onset: 09-30-2024 09-30-2024 Episodic Other aftercare (2 sources) Other jail (current) drug therapy; Translations: [Other jail (current) drug therapy] Onset: 12-01-2021 Episodic Other [...] in left hand] Onset: 12-01-2021 Episodic Other fractures (4 sources) Closed fracture of one rib; Translations: [Fracture of one rib, unspecified side, initial encounter for closed fracture] Onset: 11-04-2024 11-04-2024 Episodic Other fractures (1 source) Fracture of one rib, unspecified side, initial encounter for closed fracture; Translations: [Fracture of one rib, unspecified side, initial encounter for closed fracture] Onset: 11-04-2024 Episodic Other lower respiratory disease (2 sources) [...] cardiovascular function study] Onset: 05-30-2019 05-30-2019 Episodic Otitis media and related conditions (11 sources) Otitis media; Translations: [Otitis media, unspecified, unspecified ear] Onset: 05-23-2024 01-09-2021 Episodic Pleurisy; pneumothorax; pulmonary collapse (8 sources) Pneumothorax; Translations: [Pneumothorax, unspecified] Onset: 11-04-2024 11-04-2024 Episodic Residual codes; unclassified (2 sources) Edema, unspecified; Translations: [Edema, unspecified] Onset: 07-12-2021 Episodic Unclassified (1 source) Abnormal results of function studies of other organs and systems 05-13-2024 Results Test Name Value Interpretation Reference Range Facility 36on 03-04-2025 36 S: Patient spoke wit h CAC nurse regarding low potassium from October lab work. B: Onset of symptoms/concern: labs completed in October. A: Patient states she was looking at her xray results in [facility] and she saw a low potassium, it was 2.3 on 10/14/24. States she hasn't been feeling well and wonders why the doctor did not discuss her low potassium level, last seen in the office on 02/23/25 with her concerns. R: Checked labs in [place] and reviewed Epic. Discussed she was in the ER on 10/14/24, she had two labs drawn, one at 10:03AM with abnormal potassium and the 2nd one at 11:08AM with normal potassium. Reviewed she also had potassium drawn on 12/30/24 and potassium was normal. Patient verbalizes understanding and seemed relieved. No further needs at this time. Patient instructed to call back with new or worsening symptoms or any further questions or concerns. Reason for Disposition Health information question, no triage required and triager able to answer question Protocols used: Information Only Call - [id number] - [facility] 2 Viewson 03-03-2025 No fracture or dislocation of the left shoulder is identified. Mild degenerative changes of the left acromioclavicular and glenohumeral joints. Report Dictated on Electronically Signed By: Rambo Samano MD Electronically Signed Date/Time: 03/03/2025 12:48 PM EDT [facility] Patient Name: SULLY PERDOMO : 1955 Exam Date/Time: 03/03/2025 09:24 Procedure: XR SHOULDER 2+ VIEWS LEFT Ordering Provider: MARTÍNEZ RICHARD Reason For Exam: [id number] LEFT SHOULDER CLINICAL INDICATION: Pain Three views of the left shoulder were obtained. COMPARISON: None. FINDINGS: No fracture or dislocation of the left shoulder is identified. There is no abnormal soft tissue swelling. There is degenerative spurring and loss of joint space at the left acromioclavicular and glenohumeral joints. [facility] Rambo Samano MD - 03/03/2025 Patient Name: SULLY PERDOMO : 1955 Exam Date/Time: 03/03/2025 09:24 Procedure: XR SHOULDER 2+ VIEWS LEFT Ordering Provider: MARTÍNEZ RICHARD Reason For Exam: [id number] LEFT SHOULDER CLINICAL INDICATION: Pain Three views of the left shoulder were obtained. COMPARISON: None. FINDINGS: No fracture or dislocation of the left shoulder is identified. There is no abnormal soft tissue swelling. There is degenerative spurring and loss of joint space at the left acromioclavicular and glenohumeral joints. IMPRESSION: No fracture or dislocation of the left shoulder is identified. Mild degenerative changes of the left acromioclavicular and glenohumeral joints. Report Dictated on Electronically Signed By: Rambo Samano MD Electronically Signed Date/Time: 03/03/2025 12:48 PM EDT [facility] Radiology Study observation (narrative) [facility] XR Shoulder - left 2 ViewsOr dered By: Rambo Samano on 03-03-2025 [facility] ANCAon 02-15-2025 Atypical pANCA <1:20 Normal Neg:<1:20 [facility] Comment on above: Result Comment: The atypical pANCA pattern has been observed in a significant percentage of patients with ulcerative colitis, primary sclerosing cholangitis and autoimmune hepatitis. Performed By: #### M 100.678 #### [facility] [address] [place], [address] Cytoplasmic Ab <1:20 Normal Neg:<1:20 [facility] Comment on above: Performed By: #### M 100.678 #### [facility] [address] [place], [place], [id number] Perinuclear Ab. <1:20 Normal Neg:<1:20 [facility] Comment on above: Result Comment: The presence of positive fluorescence exhibiting P-ANCA or C-ANCA patterns alone is not specific for the diagnosis of Ani's Granulomatosis (WG) or microscopic polyangiitis. Decisions about treatment should not be based solely on ANCA IFA results. The International ANCA [employer] Consensus recommends follow up testing of positive sera with both CT- 3 and MPO-ANCA enzyme immunoassays. As many as 5% serum samples are positive only by EIA. Ref. AM J Clin Pathol 1999;111:507-513. Performed By: #### M 100.678 #### [facility] [address] [place], [place], [id number] Aspergillus Antibodieson Asp. flavus Negative Normal Neg:<1:1 [facility] Comment on above: Performed By: #### M 100.678 #### [facility] [address] [place], [place], [id number] Asp. fumigatus Negative Normal Neg:<1:1 [facility] Comment on above: Performed By: #### M 100.678 #### [facility] [address] [place], [place], [id number] Asp. niger Negative Normal Neg:<1:1 [facility] Comment on above: Performed By: #### M 100.678 #### [facility] [address] [place], [place], [id number] Immunoglobulin Edwin 5 IMMUNOGLOB E QN 57 IU/mL Normal 6-495 [facility] Comment on above: Result Comment: Perf ormed at: [facility] [address] [id number] Core Shaper Sides: Tim Cedeno PhD, Phone: [phone] Performed at: [facility] [address] [id number] Core Shaper Sides: Rik Lynn MD, Phone: [phone] Performed By: #### M 100.678 #### [facility] [address] [place], [place], [id number] Allergen, Mini-Raston 2024 A. ALTERNATA <0.10 Normal Class 0 [facility] Comment on above: Performed By: #### L 3200.1600, L3500.3600, L5500.0300, L3300.1200, L100.0100 #### [facility] [address] [place], [place], [id number] BERMUDA GRASS <0.10 Normal Class 0 [facility] Comment on above: Performed By: #### L 3200.1600, L3500.3600, L5500.0300, L3300.1200, L100.0100 #### [facility] [address] [place], [place], [id number] [place], [place] <0.10 Normal Class 0 [facility] Comment on above: Performed By: #### L 3200.1600, L3500.3600, L5500.0300, L3300.1200, L100.0100 #### [facility] [address] [place], [place], [id number] CAT HAIR/DANDER <0.10 Normal Class 0 [facility] Comment on above: Performed By: #### L 3200.1600, L3500.3600, L5500.0300, L3300.1200, L100.0100 #### [facility] [address] [place], [place], [id number] COMMENT Comment Normal . [facility] Comment on above: Result Comment: Miriam lopez of Specific IgE Class Description of Class ----- < 0.10 0 Negative 0.10 - 0.31 0/I Equivocal/Low 0.32 - 0.55 I Low 0.56 - 1.40 II Moderate 1.41 - 3.90 III High 3.91 - 19.00 IV Very High 19.01 - 100.00 V Very High >100.00 Very High Performed By: #### L 3200.1600, L3500.3600, L5500.0300, L3300.1200, L100.0100 #### [facility] [address] [place], [place], [id number] D FARINAE MITE <0.10 Normal Class 0 [facility] Comment on above: Performed By: #### L 3200.1600, L3500.3600, L5500.0300, L3300.1200, L100.0100 #### [facility] [address] [place], [address] D PTERONYSSINUS <0.10 Normal Class 0 [facility] Comment on above: Performed By: #### L 3200.1600, L3500.3600, L5500.0300, L3300.1200, L100.0100 #### [facility] [address] [place], [address] DOG EPITHELIA <0.10 Normal Class 0 [facility] Comment on above: Performed By: #### L 3200.1600, L3500.3600, L5500.0300, L3300.1200, L100.0100 #### [facility] [address] [place], [place], [facility] ELM,AMER WHITE <0.10 Normal Class 0 [facility] Comment on above: Performed By: #### L 3200.1600, L3500.3600, L5500.0300, L3300.1200, L100.0100 #### [facility] [address] [place], [place], [facility] Mouse Urine <0.10 Normal Class 0 [facility] Comment on above: Result Comment: Perf ormed at: - [address] [id number] Core Shaper Sides: Rik Lynn MD, Phone: [phone] Performed By: #### L 3200.1600, L3500.3600, L5500.0300, L3300.1200, L100.0100 #### [facility] [address] [place], [address] OAK, WHITE <0.10 Normal Class 0 [facility] Comment on above: Performed By: #### L 3200.1600, L3500.3600, L5500.0300, L3300.1200, L100.0100 #### [facility] [address] [place], [place], [address] PLANTSUSANMEGHANMamta <0.10 Normal Class 0 [facility] Comment on above: Performed By: #### L 3200.1600, L3500.3600, L5500.0300, L3300.1200, L100.0100 #### [facility] [address] [place], [place], [id number] RAGWEED SH/COM <0.10 Normal Class 0 [facility] Comment on above: Performed By: #### L 3200.1600, L3500.3600, L5500.0300, L3300.1200, L100.0100 #### [facility] [address] [place], [place], [address] [facility] Telephone ([facility]) SULLY PERDOMO ([id number]) 1955 F Date Time Provider Department 02/13/25 GOPI BESS [facility] During your visit today, we recorded the following information about you: Stephan Fowler RN 02/13/2025 10:49 AM Signed Patient called and needs to reschedule DSA with Dr. Bess. DSA now scheduled for 03/16/25. Will make [place] NIL aware. Allergies As of Date: 02/13/2025 Noted Allergy Reaction ESCITALOPRAM 12/16/2022 10 - [...] MA - Fully Assessed Prescriptions as of 02/13/2025 - omeprazole (PRILOSEC) 20 mg capsule take [...] Ferrari RN Problem List As Of Date 02/13/2025 Noted Resolved Cerebral aneurysm, nonruptured (HCC) [I67.1] 01/02/2025 Personal history of tobacco use [Z87.891] 01/02/2025 Nicotine dependence, cigarettes, uncomplicated *01/02/2025 Encounter Status:Closed by STEPHAN FOWLER on 02/13/25 [facility] ([id number]) 1955 F Date Time Provider Department 02/13/25 GOPI BESS During your visit today, we recorded the following information about you: Rose Mary Aquino RN 02/13/2025 12:21 PM Signed Patient contacted scheduling office needing to reschedule procedure from 02/17/2025 to 03/16/2025. Message was forwarded to Anuja CASTELLON. I contacted patient to notify her that procedure has been rescheduled. Pre-procedure instructions were reviewed and reinforced. Patient verbalizes understanding. Patient provided with arrival time of 0900 day of procedure on 03/16/2025. Patient also provided [phone] contact number should any questions arise. Allergies As of Date: 02/13/2025 Noted Allergy Reaction ESCITALOPRAM 12/16/2022 10 - [...] MA - Fully Assessed Prescriptions as of 02/13/2025 - omeprazole (PRILOSEC) 20 mg capsule take [...] Ferrari RN Problem List As Of Date 02/13/2025 Noted Resolved Cerebral aneurysm, nonruptured (HCC) [I67.1] 01/02/2025 Personal history of tobacco use [Z87.891] 01/02/2025 Nicotine dependence, cigarettes, uncomplicated *01/02/2025 Encounter Status:Closed by ROSE MARY AQUINO on 02/13/25 Normal [facility] Absolute lymphocyte countOrd ered By: Ana Gilman on 02-10-2025 Lymphocytes Auto (Unsp spec) [#/Vol] 2.43 10*3/uL 0.83-4.51 [facility] Absolute neutrophil countOrd ered By: Ana Gilman on 02-10-2025 Neutrophils (Bld) [#/Vol] 4.2 10*3/uL 2.0-7.7 [facility] Automated lymphocyte count a s percentage of total leukocytesOrdered By: Ana Gilman on 02-10-2025 Lymphocytes/100 WBC Auto (Unsp spec) 32.7 % 19-41 [facility] Basophil percentageOrdered B y: Ana Gilman on 02-10-2025 Basophils/100 WBC (Bld) 1.2 % High 0-1 [facility] CBC W/Diff, Automatedon - Absolute Lymph 2.43 X10 3/uL Normal 0.83-4.51 [facility] Comment on above: Performed By: #### L 3200.1600, L3500.3600, L5500.0300, L3300.1200, L100.0100 #### [facility] [address] [place], [address] Absolute Neut 4.2 X10 3/uL Normal 2.0-7.7 [facility] Comment on above: Performed By: #### L 3200.1600, L3500.3600, L5500.0300, L3300.1200, L100.0100 #### [facility] [address] [place], [address] Basophils/100 WBC (Bld) 1.2 % High 0-1 [facility] Comment on above: Performed By: #### L 3200.1600, L3500.3600, L5500.0300, L3300.1200, L100.0100 #### [facility] [address] [place], [address] Eosinophils/100 WBC (Bld) 1.5 % Normal 0-5 [facility] Comment on above: Performed By: #### L 3200.1600, L3500.3600, L5500.0300, L3300.1200, L100.0100 #### [facility] [address] [place], [address] Erythrocyte distribution width (RBC) [Ratio] 13.1 % Normal 11.6-14.6 [facility] Comment on above: Performed By: #### L 3200.1600, L3500.3600, L5500.0300, L3300.1200, L100.0100 #### [facility] [address] [place], [address] Hematocrit (Bld) [Volume fraction] 42.5 % Normal 37-47 [facility] Comment on above: Performed By: #### L 3200.1600, L3500.3600, L5500.0300, L3300.1200, L100.0100 #### [facility] [address] [place], [address] Hemoglobin (Bld) [Mass/Vol] 14.4 g/dL Normal 12.0-15. 0 [facility] Comment on above: Performed By: #### L 3200.1600, L3500.3600, L5500.0300, L3300.1200, L100.0100 #### [facility] [address] [place], [address] IG% 0.300 Normal 0.0-0.9 [facility] Comment on above: Result Comment: IG% - Immature Granulocytes (promyelocytes, myelocytes and metamyelocytes) > 1% indicates that a LEFT SHIFT is Present. Performed By: #### L 3200.1600, L3500.3600, L5500.0300, L3300.1200, L100.0100 #### [facility] [address] [place], [address] Lymphocytes/100 WBC (Bld) 32.7 % Normal 19-41 [facility] Comment on above: Performed By: #### L 3200.1600, L3500.3600, L5500.0300, L3300.1200, L100.0100 #### [facility] [address] [place], [address] MCH (RBC) [Entitic mass] 32.3 pg High 27.0-32.0 [facility] Comment on above: Performed By: #### L 3200.1600, L3500.3600, L5500.0300, L3300.1200, L100.0100 #### [facility] [address] [place], [address] MCHC (RBC) [Mass/Vol] 33.9 g/dL Normal 32-36 [facility] Comment on above: Performed By: #### L 3200.1600, L3500.3600, L5500.0300, L3300.1200, L100.0100 #### [facility] [address] [place], [address] MCV (RBC) [Entitic vol] 95.3 fL Normal 81-99 [facility] Comment on above: Performed By: #### L 3200.1600, L3500.3600, L5500.0300, L3300.1200, L100.0100 #### [facility] [address] [place], [address] Monocytes/100 WBC (Bld) 8.1 % Normal 0-10 [facility] Comment on above: Performed By: #### L 3200.1600, L3500.3600, L5500.0300, L3300.1200, L100.0100 #### [facility] [address] [place], [address] Neutrophils/100 WBC (Bld) 56.2 % Normal 47-70 [facility] Comment on above: Performed By: #### L 3200.1600, L3500.3600, L5500.0300, L3300.1200, L100.0100 #### [facility] [address] [place], [address] Nucleated RBC (Bld) [#/Vol] 0 10*3/uL Normal 0-5 [facility] Comment on above: Performed By: #### L 3200.1600, L3500.3600, L5500.0300, L3300.1200, L100.0100 #### [facility] [address] [place], [address] Platelet mean volume (Bld) [Entitic vol] 8.4 fL Normal 6.2-12.0 [facility] Comment on above: Performed By: #### L 3200.1600, L3500.3600, L5500.0300, L3300.1200, L100.0100 #### [facility] [address] [place], [address] Platelets (Bld) [#/Vol] 349 10*3/uL Normal 150-450 [facility] Comment on above: Performed By: #### L 3200.1600, L3500.3600, L5500.0300, L3300.1200, L100.0100 #### [facility] [address] [place], [address] RBC (Bld) [#/Vol] 4.46 10*6/uL Normal 4.2-5.4 [facility] Comment on above: Performed By: #### L 3200.1600, L3500.3600, L5500.0300, L3300.1200, L100.0100 #### [facility] [address] [place], [address] RDW SD 46.1 fl High 35.1-43.9 [facility] Comment on above: Performed By: #### L 3200.1600, L3500.3600, L5500.0300, L3300.1200, L100.0100 #### [facility] [address] [place], [address] WBC (Bld) [#/Vol] 7.4 10*3/uL Normal 4.4-11.0 [facility] Comment on above: Performed By: #### L 3200.1600, L3500.3600, L5500.0300, L3300.1200, L100.0100 #### [facility] [address] [place], [address] Eosinophil percentageOrdered By: Ana Gilman on 02-10-2025 Eosinophils/100 WBC (Bld) 1.5 % 0-5 [facility] Erythrocyte distribution wid th ratioOrdered By: Ana Gilman on 02-10-2025 Erythrocyte distribution width (RBC) [Ratio] 13.1 % 11.6-14.6 [facility] Erythrocyte distribution wid th standard deviationOrdered By: Ana Gilman on 02-10-2025 Erythrocyte distribution width (RBC) [Ratio] 46.1 fl High 35.1-43.9 [facility] Hematocrit Auto (Bld) [Volum e fraction]Ordered By: Ana Gilman on 02-10-2025 Hematocrit (Bld) [Volume fraction] 42.5 % 37-47 [facility] Hemoglobin measurementOrdere d By: Ana Gilman on 02-10-2025 Hemoglobin (Bld) [Mass/Vol] 14.4 g/dL 12.0-15. 0 [facility] IgEOrdered By: Ana tony on 02-10-2025 IgE 57 IU/mL 6-495 [facility] Comment on above: Performed at: [address] [id number] Director: Tim Cedeno PhD, Phone: [phone] at: [place] [address] [place], [place] [id number] Director: Rik Lynn MD, Phone: [phone] Immature granulocytes/100 WB C Auto (Bld)Ordered By: Ana Gilman on 02-10-2025 Immature granulocytes/100 WBC (Bld) 0.300 % 0.0-0.9 [facility] Comment on above: IG% - Immature Granu locytes (promyelocytes, myelocytes and metamyelocytes) > 1% indicates that a LEFT SHIFT is Present. Influenza virus A and B and SARS-CoV-2 (COVID-19) and Respiratory syncytial virus RNAOrdered By: Ana Gilman on 02-10-2025 SARS-CoV-2 (COVID-19) RNA MARCO ANTONIO+probe Ql (Unsp spec) [facility] - Miscellaneous t estsOrdered By: Ana Gilman on 02-10-2025 Service comment (Unsp spec) [Interp] Comment . [facility] Comment on above: Levels of Specific I gE Class Description of Class ----- < 0.10 0 Negative 0.10 - 0.31 0/I Equivocal/Low 0.32 - 0.55 I Low 0.56 - 1.40 II Moderate 1.41 - 3.90 III High 3.91 - 19.00 IV Very High 19.01 - 100.00 V Very High >100.00 Very High M100.678on 02-10-2025 M100.678 Pending SARS-CoV-2 (COVID 19) Negative INFLUENZA A Negative INFLUENZA B Negative RSV PCR Negative Normal [facility] Comment on above: Performed By: #### M 100.838 #### [facility] [place], [address] MCV (mean corpuscular volume ) determinationOrdered By: Ana Gilman on 02-10-2025 MCV (RBC) [Entitic vol] 95.3 fL 81-99 [facility] Mean corpuscular hemoglobin (MCH) determinationOrdered By: Ana Gilman on 02-10-2025 MCH (RBC) [Entitic mass] 32.3 pg High 27.0-32.0 [facility] Mean corpuscular hemoglobin concentration (MCHC) determinationOrdered By: Ana Gilman on 02-10-2025 MCHC (RBC) [Mass/Vol] 33.9 g/dL 32-36 [facility] Mean platelet volume determi nationOrdered By: Ana Gilman on 02-10-2025 Platelet mean volume (Bld) [Entitic vol] 8.4 fL 6.2-12.0 [facility] Monocyte percentageOrdered B y: Ana Gilman on 02-10-2025 Monocytes/100 WBC (Bld) 8.1 % 0-10 [facility] Neutrophil percentageOrdered By: Ana Gilman on 02-10-2025 Neutrophils/100 WBC (Bld) 56.2 % 47-70 [facility] Nucleated red blood cell per centageOrdered By: Ana Gilman on 02-10-2025 Nucleated RBC/100 WBC (Bld) [Ratio] 0 % 0-5 [facility] Platelet countOrdered By: Henna Gilman on 02-10-2025 Platelets (Bld) [#/Vol] 349 10*3/uL 150-450 [facility] RBC Auto (Bld) [#/Vol]Ordere d By: Ana Gilman on 02-10-2025 RBC (Bld) [#/Vol] 4.46 10*6/uL 4.2-5.4 [facility] Serum Aspergillus flavus ant ibody detection by immunodiffusionOrdered By: Ana Gilman on 02-10-2025 A. flavus Ab Immune diff Ql (S) Negative Neg:<1:1 [facility] Serum Aspergillus fumigatus antibody detection by immunodiffusionOrdered By: Ana Gilman on 02-10-2025 A. fumigatus Ab Immune diff Ql (S) Negative Neg:<1:1 [facility] Serum Aspergillus niger anti body detection by immunodiffusionOrdered By: Ana Gilman on 02-10-2025 A. niger Ab Immune diff Ql (S) Negative Neg:<1:1 [facility] Serum [place] grass IgE anti body assay (units/volume)Ordered By: Ana Gilman on 02-10-2025 B[place] grass IgE Qn (S) <0.10 kU/L Class 0 [facility] Serum house dust mi te IgE antibody assay (units/volume)Ordered By: Ana Gilman on 02-10-2025 house dust mite IgE Qn (S) <0.10 kU/L Class 0 [facility] Serum [place] blue grass Ig E antibody assay (units/volume)Ordered By: Ana Gilman on 02-10-2025 [place] blue grass IgE Qn (S) <0.10 kU/L Class 0 [facility] Serum cat dander IgE antibod y assay (units/volume)Ordered By: Ana Gilman on 02-10-2025 Cat dander IgE Qn (S) <0.10 kU/L Class 0 [facility] Serum classic neutrophil cyt oplasmic antibody assay (units/volume)Ordered By: Ana Gilman on 02-10-2025 Neutrophil cytoplasmic Ab.classic Qn (S) <1:20 titer Neg:<1:20 [facility] Serum dog epithelium IgE ant ibody assay (units/volume)Ordered By: Ana Gilman on 02-10-2025 Dog epithelium IgE Qn (S) <0.10 kU/L Class 0 [facility] Serum perinuclear neutrophil cytoplasmic antibody titer by immunofluorescenceOrdered By: Ana Gilman on 02-10-2025 Neutrophil cytoplasmic Ab.perinuclear IF (S) [Titer] <1:20 titer Neg:<1:20 [facility] Comment on above: The presence of posi tive fluorescence exhibiting P-ANCA orC-ANCA patterns alone is not specific for the diagnosis ofWegener's Granulomatosis (WG) or microscopic polyangiitis.Decisions about treatment should not be based solely onANCA IFA results. The International ANCA Group Consensusrecommends follow up testing of positive sera with both CT-3 and MPO-ANCA enzyme immunoassays. As many as 5% serumsamples are positive only by EIA. Ref. AM J Clin [id number];111:507-513. Serum white elm IgE antibody assay (units/volume)Ordered By: Ana Gilman on 02-10-2025 [place] IgE Qn (S) <0.10 kU/L Class 0 [facility] Serum white oak IgE antibody assay (units/volume)Ordered By: Ana Gilman on 02-10-2025 [place] IgE Qn (S) <0.10 kU/L Class 0 [facility] White blood cell (WBC) count Ordered By: Ana Gilman on 02-10-2025 WBC (Bld) [#/Vol] 7.4 10*3/uL 4.4-11.0 [facility] 02-03-2025 CNPN Telephone (AKNEIL) SULLY PERDOMO ([id number]) 1955 F Date Time Provider Department 02/03/25 [...] Encounter Status:Closed by JENNIFER LEBRON on 02/03/25 [facility] SULLY PERDOMO ([id number]) 1955 F Date Time Provider Department 01/24/25 GOPI BESS [facility] During your visit today, we recorded the following information about you: Stephan Fowler RN 01/24/2025 4:30 PM Signed Spoke with patient and rescheduled her for diagnostic angiogram with Dr. Bess on 02/17/25. Provided instructions and will send through [email or web address]. 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 Lzizie Ferrari RN Problem List As Of Date 01/10/2025 Noted Resolved Cerebral aneurysm, nonruptured (HCC) [I67.1] 01/02/2025 Personal history of tobacco use [Z87.891] 01/02/2025 Nicotine dependence, cigarettes, uncomplicated *01/02/2025 Encounter Status:Closed by JAMA WHITEHEAD on 01/10/25 [facility] SULLY PERDOMO ([id number]) 1955 F Date Time Provider Department 01/03/25 GOPI BESS During your visit today, we recorded the following information about you: Stephan Fowler RN 01/03/2025 2:22 PM Signed Left VM for patient to call and [...] Bess. Reviewed instructions and will send through [email or web address]. Provided call back number to call with [...] Encounter Status:Closed by STEPHAN FOWLER on 01/03/25 Normal [facility] CNOVon 01-02-2025 CNOV Office Visit (NSEAP) SULLY PERDOMO ([id number]) 1955 F Date Time Provider Department 01/02/25 11:20 AM GOPI BESS NSEBJ During your visit today, we recorded the following information about you: Pulse Blood pressure Weight Height 86/minute 144/73 52.2 kg 1.651 m Gopi Bess MD 01/02/2025 11:50 AM Signed You will have a diagnostic catheter angiogram scheduled at [facility] within the next few weeks. 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, for which she is scheduled to have [...] ALLIED HEALTHon 12-30-2024 ALLIED HEALTH HNO ID: [id number] Author: JACLYN MAURO Tech Service: Radiology Author Type: Instructor Psychiatric Aide Type: Allied Health Filed: 12/30/2024 14:44 Note [...] PATIENT PRESENTS WITH AN IMPLANTABLE OR ATTACHED PROPELLER ENGINEER: No ALLERGIES: Reviewed and unchanged CONTRAST ALLERGY: [...] PERIPHERAL IV DATA: Inpatient - refer to [facility] documentation RADIOLOGY DEPARTMENT: CT; Exam(s) Completed: Brain , CTA Brain , and CTA Neck SIGNATURE: Kiara Khan PATIENT NAME: Sully Perdomo DATE: December 30, 2024 TIME: 2:37 PM Normal [facility] Basic metabolic 2000 panelon 12-30-2024 Anion gap [Moles/Vol] 11 mmol/L Normal 8-15 [facility] Comment on above: Order Comment: Rubio ayala Type: BLOOD SPECIMENOrdering Facility: [facility] Address: [address] [place] [address] Performed By: #### 2 432-, ####[facility] LABORATORYCLIA [id number] [place] [address] [place] Calcium [Mass/Vol] 9.3 mg/dL Normal 8.5-10.2 [facility] Comment on above: Order Comment: Rubio ayala Type: BLOOD SPECIMENOrdering Facility: [facility] Address: [address] [place] [address] Performed By: #### 2 4321-, ####[facility] LABORATORYCLIA [id number] [address] OF [facility] Chloride [Moles/Vol] 107 mmol/L Normal 98-107 [facility] Comment on above: Order Comment: Speci men Type: BLOOD SPECIMENOrdering Facility: [facility] Address: [address] [place] [address] Performed By: #### 2 4321-2, ####[facility] LABORATORYCLIA [id number] [place] [id number] [facility] [place] CO2 [Moles/Vol] 26 mmol/L Normal 22-30 [facility] Comment on above: Order Comment: Speci men Type: BLOOD SPECIMENOrdering Facility: [facility] Address: [address] [place] [address] Performed By: #### 2 4321-2, ####[facility] LABORATORYCLIA [id number] [address] OF [facility] Creatinine [Mass/Vol] 0.59 mg/dL Normal 0.58-0.96 [facility] Comment on above: Order Comment: Speci men Type: BLOOD SPECIMENOrdering Facility: [facility] Address: [address] [place] [address] Performed By: #### 2 4321-2, ####[facility] LABORATORYCLIA [id number] [address] Creatinine and Glomerular filtration rate.predicted panel (S/P/Bld) 99 mL/min/1.73m??? Normal >=60 [facility] Comment on above: Order Comment: Speci men Type: BLOOD SPECIMENOrdering Facility: [facility] Address: [address] [place] [address] Result Comment: Samantha mated Glomerular Filtration Rate [...] reflect actual GFR. Performed By: #### 2 ####[facility] LABORATORYCLIA [id number] [place] [address] [place] Glucose [Mass/Vol] 130 mg/dL High 74-99 [facility] Comment on above: Order Comment: Speci men Type: BLOOD SPECIMENOrdering Facility: [facility] Address: [address] [place] [address] Result Comment: The [place] Diabetes Association (ADA) provides guidance for cutoff [...] Standards of Medical Care in Diabetes 2016, [place] [employer]. Diabetes Care. 2016.39(Suppl 1). Performed By: #### 2 4320-10, ####[facility] LABORATORYCLIA [id number] [place] [address] [place] Potassium [Moles/Vol] 3.7 mmol/L Normal 3.7-5.1 [facility] Comment on above: Order Comment: Speci men Type: BLOOD SPECIMENOrdering Facility: [facility] Address: [address] [place] [address] Performed By: #### 2 4320-10, ####[facility] LABORATORYCLIA [id number] [place] [address] [place] Sodium [Moles/Vol] 144 mmol/L Normal 136-144 [facility] Comment on above: Order Comment: Speci men Type: BLOOD SPECIMENOrdering Facility: [facility] Address: [address] [place], [place] [id number] Performed By: #### 2 4320-10, ####[facility] LABORATORYCLIA [id number] [address] STATES OF [facility] Urea nitrogen [Mass/Vol] 8 mg/dL Normal 7-21 [facility] Comment on above: Order Comment: Speci men Type: BLOOD SPECIMENOrdering Facility: [facility] Address: [address] [place] [address] Performed By: #### 2 4321-2, 05601-3 ####[facility] LABORATORYCLIA [id number] [place] [address] [place] CBC W Auto Differential pane l (Bld)on 12-30-2024 Basophils (Bld) [#/Vol] 0.06 10*3/uL Normal <0.11 [facility] Comment on above: Order Comment: Speci men Type: BLOOD SPECIMEN [facility] Address: [address] [place] [address] Performed By: #### 5 7021-8 #### [facility] CLIA [id number] [address] STATES OF [facility] Basophils/100 WBC (Bld) 0.8 % Normal [facility] Comment on above: Order Comment: Speci men Type: BLOOD SPECIMEN [facility] Address: [address] [place] [address] Performed By: #### 5 7021-8 #### [facility] CLIA [id number] [address] Differential cell count method Nom (Bld) Auto Normal [facility] Comment on above: Order Comment: Speci men Type: BLOOD SPECIMEN [facility] Address: [address] [place] [address] Performed By: #### 5 7021-8 #### [facility] CLIA [id number] [address] [place] Eosinophils (Bld) [#/Vol] 0.09 10*3/uL Normal <0.46 [facility] Comment on above: Order Comment: Speci men Type: BLOOD SPECIMEN [facility] Address: [address] [place] [address] Performed By: #### 5 7021-8 #### [facility] CLIA [id number] [address] Eosinophils/100 WBC (Bld) 1.2 % Normal [facility] Comment on above: Order Comment: Speci men Type: BLOOD SPECIMEN [facility] Facility: [facility] Address: [address] [place] [address] Performed By: #### 5 7021-8 #### [facility] CLIA [id number] [address] [place] Erythrocyte distribution width (RBC) [Ratio] 13.3 % Normal 11.5-15.0 [facility] Comment on above: Order Comment: Speci men Type: BLOOD SPECIMEN [facility] Address: [address] [place] [address] Performed By: #### 5 7021-8 #### [facility] CLIA [id number] [address] Hematocrit (Bld) [Volume fraction] 42.6 % Normal 36.0-46.0 [facility] Comment on above: Order Comment: Speci men Type: BLOOD SPECIMEN [facility] Address: [address] [place] [address] Performed By: #### 5 7021-8 #### [facility] CLIA [id number] [address] [place] Hemoglobin (Bld) [Mass/Vol] 13.8 g/dL Normal 11.5-15. 5 [facility] Comment on above: Order Comment: Speci men Type: BLOOD SPECIMEN [facility] Address: [address] [place] [address] Performed By: #### 5 7021-8 #### [facility] CLIA [id number] [address] OF [facility] Immature granulocytes (Bld) [#/Vol] 0.03 10*3/uL Normal <0.10 [facility] Comment on above: Order Comment: Speci men Type: BLOOD SPECIMEN [facility] Address: [address] [place] [address] Performed By: #### 5 7021-8 #### [facility] CLIA [id number] [address] Immature granulocytes/100 WBC (Bld) 0.4 % Normal [facility] Comment on above: Order Comment: Speci men Type: BLOOD SPECIMEN [facility] Address: [address] [place] [address] Performed By: #### 5 7021-8 #### [facility] CLIA [id number] [address] Lymphocytes (Bld) [#/Vol] 1.86 10*3/uL Normal 1.00-4.0 0 [facility] Comment on above: Order Comment: Speci men Type: BLOOD SPECIMEN [facility] Address: [address] [place] [address] Performed By: #### 5 7021-8 #### [facility] CLIA [id number] [address] Lymphocytes/100 WBC (Bld) 24.2 % Normal [facility] Comment on above: Order Comment: Speci men Type: BLOOD SPECIMEN [facility] Address: [address] [place] [address] Performed By: #### 5 7021-8 #### [facility] CLIA [id number] [address] STATES [facility] MCH (RBC) [Entitic mass] 31.1 pg Normal 26.0-34.0 [facility] Comment on above: Order Comment: Speci men Type: BLOOD SPECIMEN [facility] Address: [address] [place] [address] Performed By: #### 5 7021-8 #### [facility] CLIA [id number] [address] MCHC (RBC) [Mass/Vol] 32.4 g/dL Normal 30.5-36.0 [facility] Comment on above: Order Comment: Speci men Type: BLOOD SPECIMEN [facility] Address: [address] [place] [address] Performed By: #### 5 7021-8 #### [facility] CLIA [id number] [address] [place] MCV (RBC) [Entitic vol] 95.9 fL Normal 80.0-100.0 [facility] Comment on above: Order Comment: Speci men Type: BLOOD SPECIMEN [facility] Address: [address] [place] [address] Performed By: #### 5 7021-8 #### [facility] CLIA [id number] [address] [place] Monocytes (Bld) [#/Vol] 0.57 10*3/uL Normal <0.87 [facility] Comment on above: Order Comment: Speci men Type: BLOOD SPECIMEN [facility] Address: [address] [place] [address] Performed By: #### 5 7021-8 #### [facility] CLIA [id number] [address] Monocytes/100 WBC (Bld) 7.4 % Normal [facility] Comment on above: Order Comment: Speci men Type: BLOOD SPECIMEN [facility] Address: [address] [place] [address] Performed By: #### 5 7021-8 #### [facility] CLIA [id number] [address] [place] Neutrophils (Bld) [#/Vol] 5.08 10*3/uL Normal 1.45-7.5 0 [facility] Comment on above: Order Comment: Speci men Type: BLOOD SPECIMEN [facility] Address: [address] [place] [address] Performed By: #### 5 7021-8 #### [facility] CLIA [id number] [address] Neutrophils/100 WBC (Bld) 66.0 % Normal [facility] Comment on above: Order Comment: Speci men Type: BLOOD SPECIMEN [facility] Facility: [facility] Address: [address] [place] [address] Performed By: #### 5 7021-8 #### [facility] CLIA [id number] [address] [place] Nucleated RBC (Bld) [#/Vol] 10*3/uL Normal <0.01 [facility] Comment on above: Order Comment: Speci men Type: BLOOD SPECIMEN [facility] Facility: [facility] Address: [address] [place] [address] Performed By: #### 5 7021-8 #### [facility] CLIA [id number] [address] Nucleated RBC/100 WBC (Bld) [Ratio] 0.0 /100 WBC Normal [facility] Comment on above: Order Comment: Speci men Type: BLOOD SPECIMEN [facility] Address: [address] [place] [address] Performed By: #### 5 7021-8 #### [facility] CLIA [id number] [address] [place] Platelet mean volume (Bld) [Entitic vol] 8.3 fL Low 9.0-12.7 [facility] Comment on above: Order Comment: Speci men Type: BLOOD SPECIMEN [facility] Address: [address] [place] [address] Performed By: #### 5 7021-8 #### [facility] CLIA [id number] [address] [place] Platelets (Bld) [#/Vol] 333 10*3/uL Normal 150-400 [facility] Comment on above: Order Comment: Speci men Type: BLOOD SPECIMEN [facility] Address: [address] [place] [address] Performed By: #### 5 7021-8 #### [facility] CLIA [id number] [address] [place] RBC (Bld) [#/Vol] 4.44 10*6/uL Normal 3.90-5.20 [facility] Comment on above: Order Comment: Rubio ayala Type: BLOOD SPECIMEN [facility] Address: [address] [place] [address] Performed By: #### 5 7021-8 #### [facility] CLIA [id number] [address] WBC (Bld) [#/Vol] 7.69 10*3/uL Normal 3.70-11.00 [facility] Comment on above: Order Comment: Rubio ayala Type: BLOOD SPECIMEN [facility] Address: [address] [place] [address] Performed By: #### 5 7021-8 #### [facility] CLIA [id number] [address] [facility] SULLY PERDOMO ([id number]) 1955 F Date Time Provider Department 12/30/24 GOPI BESS [facility] During your visit today, we recorded [...] Perdomo, 1955). Yes Number to return call [phone] Reason for Call: Symptoms Call: Symptoms: Left Eye Drooping more, Dizziness, Lightheaded, and left Blurry Vision different from needed glasses, tingling in eyelid Duration: 24-48 hours Progression: worse Pain level: 3 on a scale of 0-10. Type of pain (feels like): pressure Frequency: constant Location of pain: Left Eye Pharmacy: [facility] Patient diagnosed with an aneurysm. Patient is calling to report active symptoms. She is scheduled to see Dr. Lee Thursday as new consult but is having active symptoms with worsening drooling in eye lid, lightheaded and dizzy while sitting but worsen when standing. Patient reports seeing zigzags in front of left eye. Please [phone]. P.S Patient was asked if she contacted her PCP. She states PCP is not available. I CONFIRMED and updated patient's address in [place]. Thank you calling [facility]. You will receive a return call within 48 hours ( or 2 business days if close to the weekend). If you feel that this is an urgent issue and needs immediate attention, it is recommended that you contact your primary care provider office or proceed to your nearest Urgent Care Center of Emergency Room ED for evaluation/treatment. Maldonado Bola Denita 12/30/2024 9:25 AM Signed Patient called back and was wondering why no one called her back, and I gave her the message below, she will go to the [place] ED. Allergies As of Date: 12/30/2024 Noted [...] Status:Closed by DENITA VEGAS on 12/30/24 Normal [facility] CT BRAIN WO IVCONon 12-31-19 CT BRAIN WO IVCON * * *Final Report* * * DATE OF EXAM: Dec 30 2024 2:54PM [facility] 0504 - CT BRAIN WO IVCON / [...] Arch: The aortic arch is out of [id number]. No dissection the cervical vertebral or carotid [...] are patent. The basilar artery is patent. backroom associate are patent. SCAs are patent. No significant stenosis. No aneurysm. The major dural sinuses and draining veins are patent. Professor Of Environmental Studies (topogram) images: No additional findings. IMPRESSION: No acute intracranial findings. Motion degradation at the skull base on CTA. Bilateral proximal cervical ICA stenosis 10% on the right and 30% on the left. 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 Senior Training Specialist[facility] Transcribe Date/Time: Dec 30 2024 3:03P Dictated by : MARTHA RODRIGUEZ MD This examination was interpreted and the report reviewed and electronically signed by: MARTHA RODRIGUEZ MD on Dec 30 2024 3:19PM EST [id number] Normal [facility] CTA HEAD W IVCONon CTA HEAD W IVCON * * *Final Report* * * DATE OF EXAM: Dec 30 2024 2:54PM [facility] 0022 - CTA HEAD W IVCON / [...] Arch: The aortic arch is out of [id number]-[id number]. No dissection the cervical vertebral or carotid [...] are patent. The basilar artery is patent. backroom associate are patent. SCAs are patent. No significant stenosis. No aneurysm. The major dural sinuses and draining veins are patent. Professor Of Environmental Studies (topogram) images: No additional findings. IMPRESSION: No acute intracranial findings. Motion degradation at the skull base on CTA. Bilateral proximal cervical ICA stenosis 10% on the right and 30% on the left. 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 Senior Training Specialist: ANETA Transcribe Date/Time: Dec 30 2024 3:03P Dictated by : MARTHA RODRIGUEZ MD This examination was interpreted and the report reviewed and electronically signed by: MARTHA RODRIGUEZ MD on Dec 30 2024 3:19PM EST [id number] Normal [facility] CTA NECK W IVCONon CTA NECK W IVCON * * *Final Report* * * DATE OF EXAM: Dec 30 2024 2:54PM [facility] 0024 - CTA NECK W IVCON / [...] Arch: The aortic arch is out of [id number]-dh-yhie. No dissection the cervical vertebral or carotid [...] are patent. The basilar artery is patent. backroom associate are patent. SCAs are patent. No significant stenosis. No aneurysm. The major dural sinuses and draining veins are patent. Professor Of Environmental Studies (topogram) images: No additional findings. IMPRESSION: No acute intracranial findings. Motion degradation at the skull base on CTA. Bilateral proximal cervical ICA stenosis 10% on the right and 30% on the left. 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 Senior Training Specialist: ANETA Transcribe Date/Time: Dec 30 2024 3:03P Dictated by : MARTHA RODRIGUEZ MD This examination was interpreted and the report reviewed and electronically signed by: MARTHA RODRIGUEZ MD on Dec 30 2024 3:19PM EST [id number] Normal [facility] ED NOTEon 12-30-2024 ED NOTE HNO ID: [id number] Author: TIMO FORRESTER RN Service: Emergency Medicine Author Type: Registered Nurse Type: ED Notes Filed: 12/30/2024 11:24 Note Text: CT called for at this time. 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 She presents to the emergency department after she developed left ptosis and lightheadedness. She contacted her boatbuilder supervisor who advised her to come here. She [...] [facility] ED PROV NOTE HNO ID: [id number] Author: MORENA SANDOVAL MD Service: Emergency Medicine [...] dealing with recurrent sinus infections. The patient's boatbuilder supervisor ordered MRI of the brain to evaluate [...] 1998 Rx with oral steroids; followed by [employer] PAST SURGICAL HISTORY Procedure Laterality Date APPENDECTOMY [...] QTC Calculation(Bazett) : 457 ms Calculated P Manning : 64 degrees Calculated R Manning : 37 degrees Calculated T Manning : 69 degrees NORMAL SINUS RHYTHM INCOMPLETE RIGHT BUNDLE BRANCH BLOCK BORDERLINE ECG NO PREVIOUS ECGS AVAILABLE Confirmed by MD SANDOVAL CAROL ([id number]) on 12/30/2024 11:10:03 AM NAME : SULLY PERDOMO PID : [id number] : 1955 Gender : Female Race : ORD : Procedure Date : Dec 30 2024 10:19:27 Edit Date : Dec 30 2024 11:10:07 Diagnosis: NORMAL SINUS RHYTHM INCOMPLETE RIGHT BUNDLE BRANCH BLOCK BORDERLINE ECG NO PREVIOUS ECGS AVAILABLE Confirmed by MD SANDOVAL CAROL ([id number]) on 12/30/2024 11:10:03 AM Test Reason : Location : 4 : [facility] [place] EM Overread By : MD SANDOVAL CAROL Edited By : MD SANDOVAL CAROL Referred By : , Acquired by : BO SOTO [facility] Magnesium SerPl-ncon 12-30 Magnesium [Mass/Vol] 1.9 mg/dL Normal 1.7-2.3 [facility] Comment on above: Order Comment: Speci men Type: BLOOD SPECIMENOrdering Facility: [facility] Address: [address] [place] [address] Performed By: #### 2 4321-2, 34313-0 ####[facility] LABORATORYCLIA [id number] [place] [address] [place] [facility] Chest PA and Lateralon 12-19 Chest PA and Lateral [facility] Imaging Services [facility] [place] [address] Chest PA and Lateral MR#: [id number] Acct: [id number] Name: SULLY PERDOMO STEPHAN Rep #: [id number] : 1955 F 69 From: Mirtha Knapp PCP: Dr. Jeremiah Martínez MD Status: REG CLI Study: Chest PA and Lateral Date of Exam: 12/19/24 Exam# [id number] Ordering Dr: Ana Gilman NP MEDICAL INSURANCE BILLER-C PROCEDURE: CHEST PA AND LATERAL 12/19/2024 REASON [...] fractures. Subacute right rib fractures. Reading Location: [id number] CC: MEDICAL INSURANCE BILLER-C Ana Gilman; Dr. Jeremiah Martínez MD Senior Training Specialist: Signed Normal [facility] CT MAXILLOFACIAL WO IV CONTR Tao 12-10-2024 CT MAXILLOFACIAL WO IV CONTRAST Patient Name: SULLY PERDOMO : 1955 Exam Date/Time: 12/08/2024 08:27 Procedure: CT MAXILLOFACIAL [...] PM EDT Chronic congestion Medtronic protocol Normal [facility] Pulmonary Visit Reporton Pulmonary Visit Report [facility] [place] [address] [place] [address]. [address] [place] [address] OFFICE VISIT Date of Service: 11/08/24 MR#: [id number] Acct: [id number] Name: SULLY PERDOMO STEPHAN Rep #: [id number] : 1955 Provider: OLIVE Gilman Age/Sex: 69/F Location: [facility].PMW Status: Signed Assessment and Plan Assessment and [...] She d (more content not included)... Normal [facility] XR Chest 2 Viewson 5 1. No acute cardiopulmonary process. 2. Pulmonary hyperinflation. Report Dictated on Electronically Signed By: Mac Laws MD Electronically Signed Date/Time: 11/04/2024 9:59 AM [facility] [employer] RADIOLOGY SYSTEM Patient Name: SULLY PERDOMO : 1955 [id number] Exam Date/Time: 11/04/2024 08:07 Procedure: XR CHEST [...] are degenerative changes of the thoracic spine. [facility] Mac Laws MD - 11/04/2024 Patient Name: [...] Electronically Signed Date/Time: 11/04/2024 9:59 AM EST [employer]me [employer] Radiology Study observation (narrative) Pain Doctor XR Chest 2 ViewsOrdered By: Mac Laws on 11-04-2024 Pain Doctor Work Phone: PET/CT Tumor Base -Thigh Ini ton 10-18-2024 PET/CT Tumor Base -Thigh Init [facility] Imaging Services [address] [place] [address] [id number] PET/CT Tumor Base -Thigh Init MR#: [id number] Acct: [id number] Name: SULLY PERDOMO STEPHAN Rep #: [id number] : 1955 F 69 From: Jessica Ordaz MD PCP: Dr. Jeremiah Martínez MD Status: REG CLI Study: PET/CT Tumor Base -Thigh Init Date of Exam: Exam# [id number] Ordering Dr: Ana Gilman NP MEDICAL INSURANCE BILLER-C ADDENDUM by Dr. Jessica Ordaz MD on 10/27/24 at 0758 The findings of pneumothorax and rib fractures were discussed with the nurse at Ana Gilman's office at 0754 EST on 10/27/2024. Reading Location: [id number] 10/27/24 0758 Date cc: OLIVE Gilman; Dr. Jeremiah Martínez [...] A TRACE RIGHT APICAL PNEUMOTHORAX. Reading Location: [id number] CC: OLIVE Gilmna; Dr. Jeremiah Martínez MD Senior Training Specialist: Signed Normal [facility] BASIC METABOLIC PANELon 0 Anion gap [Moles/Vol] 8 mmol/L Normal 3-13 [facility] Comment on above: Performed By: #### L AB15, [id number] #### [employer] Car Supervisor: ANA HIGGINS ([phone]) [facility] ROI land investmentTMAN (SWRLAB) [address] [place] [address] Calcium [Mass/Vol] 9.5 mg/dL Normal 8.8-10.0 [facility] Comment on above: Performed By: #### L AB15, [id number] #### [employer] Supervisor: ANA HIGGINS ([phone]) [facility] [employer] (SWRL[employer]) [address] [place] [address] [place] Chloride [Moles/Vol] 102 mmol/L Normal 98-107 [facility] Comment on above: Performed By: #### L AB15, [id number] #### [employer] Supervisor: ANA HIGGINS ([phone]) [facility] COHEN RITTMAN (SWRLAB) [address] [place] [address] CO2 [Moles/Vol] 27 mmol/L Normal 23-31 [facility] Comment on above: Performed By: #### L AB15, [id number] #### [employer] Supervisor: ANA HIGGINS ([phone]) [facility] RIT[facility] (SWRLAB) [address] [place] [address] Creatinine [Mass/Vol] 0.72 mg/dL Normal 0.57-1.11 [facility] Comment on above: Performed By: #### L AB15, [id number] #### [employer] Supervisor: ANA HIGGINS ([phone]) [facility] CO[facility]IT[facility] (SWRL[employer]) [address] [place] [address] GLOMERULAR FILTRATION RATE ML/MIN/1.73 SQ M.PREDICTED >90.0 Normal >60.0 [facility] Comment on above: Result Comment: Calc ulation based on the Chronic Kidney Disease Epidemiology Collaboration (CKD-EPI) equation refit without adjustment for race Performed By: #### L AB15, [id number] #### [employer] Supervisor: ANA HIGGINS ([phone]) [facility] CO[facility]EN RIT[facility] (SWRLAB) [address] [place] [address] Glucose [Mass/Vol] 98 mg/dL Normal 82-115 [facility] Comment on above: Performed By: #### L AB15, [id number] #### [employer] Supervisor: ANA HIGGINS ([phone]) [facility] VICKI RITTMAN (SWRLAB) [address] [place] [address] [place] Potassium [Moles/Vol] 3.5 mmol/L Normal 3.5-5.1 [facility] Comment on above: Result Comment: [facility] potassium values may be up to 0.5 mmol/L lower than serum values. Performed By: #### L AB15, [id number] #### [employer] Supervisor: ANA HIGGINS ([phone]) [facility] COHEN RIT[facility] (SWRLAB) [address] [place] [address] Sodium [Moles/Vol] 137 mmol/L Normal 136-145 [facility] Comment on above: Performed By: #### L AB15, [id number] #### [employer] Supervisor: ANA HIGGINS ([phone]) [facility] CO[facility] RIT[facility] (SWRL[employer]) [address] [place] [address] Urea nitrogen [Mass/Vol] 11 mg/dL Normal 9-23 [facility] Comment on above: Performed By: #### L AB15, [id number] #### [employer] Supervisor: ANA HIGGINS ([phone]) [facility] COHEN RITTM[facility] (SWRLAB) [address] [place] [address] Anion gap [Moles/Vol] 4 mmol/L Normal 3-13 [facility] Comment on above: Performed By: #### L AB15 #### [employer] Supervisor: ANA HIGGINS ([phone]) [facility] COHEN RITTM[facility] (SWRLAB) [address] [place] [address] Calcium [Mass/Vol] 6.3 mg/dL Low 8.8-10.0 [facility] Comment on above: Performed By: #### L AB15 #### [employer] Supervisor: ANA HIGGINS ([phone]) [facility] COHEN RITTMAN (SWRLAB) [address] [place] [address] [place] Chloride [Moles/Vol] 116 mmol/L High 98-107 [facility] Comment on above: Performed By: #### L AB15 #### [employer] Supervisor: ANA HIGGINS ([phone]) [facility] COHEN RITTMAN (SWRLAB) [address] [place] [address] CO2 [Moles/Vol] 20 mmol/L Low 23-31 [facility] Comment on above: Performed By: #### L AB15 #### [employer] Supervisor: ANA HIGGINS ([phone]) [facility] CO[facility] RIT[facility] (SWRLAB) [address] [place] [address] Creatinine [Mass/Vol] 0.51 mg/dL Low 0.57-1.11 [facility] Comment on above: Performed By: #### L AB15 #### [employer] Supervisor: ANA HIGGINS ([phone]) [facility] VICKI RITTMAN (SWRL[employer]) [address] [place] [address] GLOMERULAR FILTRATION RATE ML/MIN/1.73 SQ M.PREDICTED >90.0 Normal >60.0 [facility] Comment on above: Result Comment: Calc ulation based on the Chronic Kidney Disease Epidemiology Collaboration (CKD-EPI) equation refit without adjustment for race Performed By: #### L AB15 #### [employer] Supervisor: ANA HIGGINS ([phone]) [facility] VICKI RIT[facility] (SWRLAB) [address] [place] [address] Glucose [Mass/Vol] 70 mg/dL Low 82-115 [facility] Comment on above: Performed By: #### L AB15 #### [employer] Supervisor: ANA HIGGINS ([phone]) [facility] COHEN RITTMAN (SWRLAB) [address] [place] [address] Potassium [Moles/Vol] 2.3 mmol/L Critically low 3.5-5.1 [facility] Comment on above: Result Comment: [facility] potassium values may be up to 0.5 mmol/L lower than serum values. Performed By: #### L AB15 #### [employer] Supervisor: ANA HIGGINS ([phone]) [facility] COHEN RITTMAN (SWRLAB) [address] [place] [address] [place] Sodium [Moles/Vol] 140 mmol/L Normal 136-145 [facility] Comment on above: Performed By: #### L AB15 #### [employer] Supervisor: ANA HIGGINS ([phone]) [facility] VICKI RITTMAN (SWRLAB) [address] Urea nitrogen [Mass/Vol] 9 mg/dL Normal 9-23 [facility] Comment on above: Performed By: #### L AB15 #### [employer] Supervisor: ANA HIGGINS ([phone]) [facility] VICKI KO (SWRLAB) [address] Basic metabolic 1998 panelon 10-14-2024 Anion gap [Moles/Vol] 8 mmol/L 3 - 13 mmol/L [facility] Calcium [Mass/Vol] 9.5 mg/dL 8.8 - 10. 0 mg/dL [facility] Chloride [Moles/Vol] 102 mmol/L 98 - 10 7 mmol/L [facility] CO2 [Moles/Vol] 27 mmol/L 23 - 31 mmol/L [facility] Creatinine [Mass/Vol] 0.72 mg/dL 0.57 - 1.11 mg/dL [facility] GFR/1.73 sq M.predicted (S/P/Bld) [Vol rate/Area] - PINF [facility] Comment on above: Calculation based on the Chronic Kidney Disease Epidemiology Collaboration (CKD-EPI) equation refit without adjustment for race Glucose [Mass/Vol] 98 mg/dL 82 - 115 mg/dL [facility] Interpretation and review of laboratory results Normal [facility] Potassium [Moles/Vol] 3.5 mmol/L 3.5 - 5.1 mmol/L [facility] Comment on above: Plasma potassium conrado ues may be up to 0.5 mmol/L lower than serum values. Sodium [Moles/Vol] 137 mmol/L 136 - 145 mmol/L [facility] Urea nitrogen [Mass/Vol] 11 mg/dL 9 - 23 mg/dL [facility] Basic metabolic 1997 panelOr dered By: Nicola Herrera on 10-14-2024 Anion gap [Moles/Vol] 4 mmol/L 3 - 13 mmol/L [facility] Calcium [Mass/Vol] 6.3 mg/dL Low 8.8 - 10. 0 mg/dL [facility] Chloride [Moles/Vol] 116 mmol/L High 98 - 10 7 mmol/L [facility] CO2 [Moles/Vol] 20 mmol/L Low 23 - 31 mmol/L [facility] Creatinine [Mass/Vol] 0.51 mg/dL Low 0.57 - 1.11 mg/dL [facility] GFR/1.73 sq M.predicted (S/P/Bld) [Vol rate/Area] - PINF [facility] Comment on above: Calculation based on the Chronic Kidney Disease Epidemiology Collaboration (CKD-EPI) equation refit without adjustment for race Glucose [Mass/Vol] 70 mg/dL Low 82 - 115 mg/dL [facility] Interpretation and review of laboratory results Abnormal [facility] Potassium [Moles/Vol] 2.3 mmol/L Critically low 3.5 - 5.1 mmol/L [facility] Comment on above: Plasma potassium conrado ues may be up to 0.5 mmol/L lower than serum values. Sodium [Moles/Vol] 140 mmol/L 136 - 145 mmol/L [facility] Urea nitrogen [Mass/Vol] 9 mg/dL 9 - 23 mg/dL [facility] COVID-19, Flu A/B, and RSV C omboon 10-14-2024 Interpretation and review of laboratory results Normal [facility] ED Nursing Noteon 10-14-2024 ED Nursing Note Patient ambulated to restroom. Normal [facility] ED Nursing Note Pateint to room 5 with c/o dizziness for three weeks. Patient reports she has tingling around her mouth and chin that started today. Patient reports fatigue, cough, chills, headache, muscle and joint pain for three weeks, however over the last three days symptoms have increased. V/S obtained, call light within reach. Patient finished an antibiotic this am. Normal [facility] ED Provider Noteon ED Provider Note EMERGENCY [...] Hypertension Closed right hip fracture, initial encounter ([facility]) Closed 2-part intertrochanteric fracture of proximal end of right femur, initial encounter ([facility]) CURRENT MEDICATIONS Previous Medications ALBUTEROL (2.5 MG/3ML) [...] pupils a (more content not included)... Normal [facility] ESR (Bld) [Velocity]Ordered By: Jolanta Marks on 10-14-2024 Interpretation and review of laboratory results Normal [facility] Laboratory - Chemistry and C hemistry - challengeon 10-14-2024 Magnesium [Mass/Vol] 1.7 mg/dL 1.6 - 2 .6 mg/dL [facility] Laboratory - Hematology and Cell countsOrdered By: Jolanta Marks on 10-14-2024 ESR (Bld) [Velocity] 8 mm/h [facility] Laboratory - Microbiology an d Antimicrobial susceptibilityon 10-14-2024 FLUAV RNA MARCO ANTONIO+probe Ql (Resp) Not detected Not Detected [facility] FLUBV RNA MARCO ANTONIO+probe Ql (Resp) Not detected Not Detected [facility] RSV RNA MARCO ANTONIO+probe Ql (Resp) Not detected Not Detected [facility] SARS-CoV-2 (COVID-19) RNA MARCO ANTONIO+probe Ql (Resp) Not detected Not Detected [facility] SARS-CoV-2 (COVID-19) RNA MARCO ANTONIO+probe Ql (Unsp spec) Methodology: real-time, RT-PCR The SARS-CoV-2, Flu A/B, and RSV Combo assay is intended for in vitro diagnostic use under the FDA Emergency Use Authorization (EUA). This test has not been FDA cleared or approved. In compliance with this authorization, please visit www.fda.gov/media/717 390/download or www.fda.gov/media/825 885/download to access the applicable information sheets. [facility] MAGNESIUMon 10-14-2024 Magnesium [Mass/Vol] 1.7 mg/dL Normal 1.6-2.6 [facility] Comment on above: Result Comment: ORDE R COMMENTS: Higher values can be expected in females during menses. Performed By: #### L AB15, [id number] #### [employer] Supervisor: ANA HIGGINS ([phone]) [facility]ALLOAN (SWRLAB) [address] [place] [address] [place] Magnesium [Mass/Vol]on 10-14 Interpretation and review of laboratory results Normal [facility] Higher values can be expected in females during menses. [facility] SARS-COV-2, FLU A/B, AND RSV COMBOon 10-14-2024 [...] In compliance with this authorization, please visit www.fda.gov/media/142 214/download or www.fda.gov/media/142 388/download to access the applicable information sheets. Normal [facility] Comment on above: Performed By: #### L [id number] #### [employer] Supervisor: ANA HIGGINS ([phone]) [facility] DIALLOAN (SWRLAB) [address] [place] [address] [place] SEDIMENTATION RATE, AUTOMATE Don 10-14-2024 SEDIMENTATION RATE, ERYTHROCYTE 8 mm/hr Normal 0-20 [facility] Comment on above: Performed By: #### L AB322 #### [employer] Supervisor: ANA HIGGINS ([phone]) [facility] VICKI DIALLOAN (SWRLAB) [address] [place] [address] Pulmonary Visit Reporton Pulmonary Visit Report [facility] [place] [address] [place] [address] OFFICE VISIT Date of Service: 09/30/24 MR#: [id number] Acct: [id number] Name: SULLY PERDOMO STEPHAN Rep #: [id number] : 1955 Provider: OLIVE Gilman Age/Sex: 69/F Location: [facility].PMW Status: Signed Assessment and Plan Assessment and [...] evaluation. Intake (more content not included)... Normal [facility] Chest without Contraston Chest without Contrast [facility] Imaging Services [address] [place], [place] [address] Chest without Contrast MR#: [id number] Acct: [id number] Name: SULLY PERDOMO Rep #: [id number] : 1955 F 69 From: Gavin shah MD PCP: Dr. Jeremiah Martínez MD Status: REG CLI Study: Chest without Contrast Date of Exam: 09/23/24 Exam# [id number] Ordering Dr: Ana Gilman NP MEDICAL INSURANCE BILLER-C ADDENDUM by Dr. Gavin Srinivasan MD on 10/05/24 at 0746 ======== ADDENDUM ======== [id number] This is an addendum report. There is pulmonary emphysema. The presence of pulmonary emphysema on CT is an independent risk factor for lung cancer. Electronically Signed: Gavin Srinivasan MD at 7:46 EST , 10/05/24 0746 Date cc: OLIVE Gilman; Dr. Jeremiah Martínez MD * Signed ADDENDUM by Dr. Gavin Srinivasan MD on 10/05/[address]/Chest without Contrast IMPRESSION: undefined 10/05/24 0753 Date cc: OLIVE Gilman; Dr. Jeremiah Martínez MD * Signed [id number] STUDY: CT CHEST WITHOUT CONTRAST REASON FOR [...] Signed: Gavin Srinivasan MD at 12:51 EST Reading Location ID and State: [facility] / [place] , Service support , CC: MEDICAL INSURANCE BILLERLyudmila Gilman; Dr. Jeremiah Martínez MD Senior Training Specialist: Signed Normal [facility] Echo Completeon 09-23-2024 Echo [facility] Cardiovascular Services [address] [place] [address] Echo Complete 09/23/24 0808 MR#: [id number] Acct: [id number] Name: SULLY PERDOMO STEPHAN Rep #: [id number] : 1955 69 From: Vanessa Chowdhury MD Attending Dr: OLIVE Hinds Status: RE G CLI Ordering Dr: Ana Gilman NP MEDICAL INSURANCE BILLER-C Date: Location: [place] Sex: F C Admitted: Reason For Study: [...] Referring Physician: Ana Gilman Performed By: Rica Oropeza, [facility] 09/23/24916 Date Vanessa Chowdhury MD CC: OLIVE Gilman; Dr. Jeremiah Martínez MD Date Dictated: 09/23/24807 Date Transcribed: 09/23/24916 Senior Training Specialist: Signed Normal [facility] Pulmonary Visit Reporton Pulmonary Visit Report [facility] [place] [address] [place] [address] OFFICE VISIT Date of Service: 08/30/24 MR#: [id number] Acct: [id number] Name: SULLY PERDOMO STEPHAN Rep #: [id number] : 1955 Provider: OLIVE Gilman Age/Sex: 69/F Location: [facility] Status: Signed Assessment and Plan Assessment and [...] postnasal drip. Cough can be productive of zshe-fteauu-degzbnj sputum. She denies any hemoptysis. She denies [...] FU Chief Complaint: nasal surgery DME Vendor: [employer] Accompanied by: Self Allergies budesonide Allergy (Intermediate, Verified 08/30/24 14:13) boils codeine Allergy (Verified 08/30/24 14:13) Heart Attack Sx (more content not included)... Normal [facility] 6 Minute Walk Teston 024 6 Minute Walk Test y [facility] Pulmonary Services/Neurology [address] [place] [address] MR#: [id number] Acct: [id number] Name: SULLY PERDOMO STEPHAN Rep #: [id number] : 1955 68 From: Dereck Abrue MD Referring Dr: Ana Gilman NP MEDICAL INSURANCE BILLER-C Status: REG CLI Location: PSN Date: Sex: F C PSN 6 Minute Walk Test 6 Minute Walk Test 6 Minute Walk Test: 6 Minute Walk Test PSN:6-Minute Walk Test Start: 07/04/24 12:39 Freq: Status: Active Protocol: RESP.6MINW Document 07/04/24 12:30 AEH (Rec: 07/04/24 12:43 AEH .[id number]) 6 Minute Walk Test Date Performed 07/04/24 [...] be followed closely given level of desaturation. 07/08/24 1537 Date Dereck Abreu MD CC: Date Dictated: 07/08/24 153 Date Transcribed: 07/08/241535 Senior Training Specialist: Dr. Dereck Abreu MD Signed Normal [facility] Chest without Contraston Chest without Contrast [facility] Imaging Services [address] [place] [address] Chest without Contrast MR#: [id number] Acct: [id number] Name: SULLY PERDOMO STEPHAN Rep #: [id number] : 1955 F 68 From: Demetrio Telles MD PCP: Dr. Jeremiah Martínez MD Status: REG CLI Study: Chest without Contrast Date of Exam: 06/07/24 Exam# [id number] Ordering Dr: Ana Gilman NP MEDICAL INSURANCE BILLER-C [id number] EXAM: CT CHEST WITHOUT INTRAVENOUS CONTRAST CLINICAL [...] CC: OLIVE Gilman; Dr. Jeremiah Martínez MD Senior Training Specialist: Signed Normal [facility] XR Chest 2 Viewson Hyperinflation of the lungs with coarsening of the interstitial lung markings, suggestive of a component of obstructive lung disease. No focal consolidation is identified. Report Dictated on Electronically Signed By: Rambo Samano MD Electronically Signed Date/Time: 05/23/2024 12:54 PM EDT [facility] Patient Name: SULLY PERDOMO : 1955 [...] are degenerative changes of the thoracic spine. [facility] Rambo Samano MD - 05/23/2024 Patient Name: [...] Electronically Signed Date/Time: 05/23/2024 12:54 PM EDT [facility] Radiology Study observation (narrative) [facility] XR Chest 2 ViewsOrdered By: Rambo Samano on 05-23-2024 [facility] MR Brain WO and W contrast I Von 05-13-2024 No acute intracranial abnormality or abnormal intracranial enhancement. Significant interval change in appearance of the brain since prior MRI of 11/09/2023. No significant interval change in appearance of the paranasal sinuses since prior MRI. Report Dictated on Electronically Signed By: Jack Navarro MD Electronically Signed Date/Time: 05/13/2024 11:38 AM EDT [facility] Patient Name: SULLY PERDOMO : 1955 [id number] Exam Date/Time: 05/13/2024 09:22 Procedure: MR BRAIN [...] orbits and extracranial soft tissues are unremarkable. [facility] Jack Navarro MD - 05/13/2024 Patient Name: SULLY PERDOMO : 1955 [facility] [id number] Exam Date/Time: 05/13/2024 09:22 Procedure: MR BRAIN [...] Electronically Signed Date/Time: 05/13/2024 11:38 AM EDT [facility] Addendum by Chacha Navarro MD on 06/07/2024 9:37 AM EDT Patient Name: SULLY PERDOMO : 1955 [facility] [id number] Exam Date/Time: 05/13/2024 09:22 Procedure: MR BRAIN [...] Electronically Signed Date/Time: 05/13/2024 11:38 AM EDT [facility] Radiology Study observation (narrative) [facility] MR Brain WO and W contrast I VOrdered By: Jack Navarro on 05-13-2024 [facility] [employer] Work Phone: Pulmonary Visit Reporton Pulmonary Visit Report [facility] [place] [address] [address] [place] [address] OFFICE VISIT Date of Service: 03/25/24 MR#: [id number] Acct: [id number] Name: CONORSULLY STEPHAN Rep #: [id number] : 1955 Provider: OLIVE Gilman Age/Sex: 68/F Location: [facility].PMW Status: Signed Assessment and Plan Assessment and [...] going to defer antibiotic management to her senior research analyst who she is established with. I am [...] lung field Plan Details Follow Up: 07/08/24 ([facility]) HPI O2 dropping Chief Complaint: Shortness of [...] Reasons: O2 dropping Chief Complaint: nasal surgery Cosmetic Sales Required: No Accompanied by: Self Is patient [...] solution for (more content not included)... Normal [facility] Chest without Contraston Chest without Contrast [facility] Imaging Services [address] [place] [address] Chest without Contrast MR#: [id number] Acct: [id number] Name: SULLY PERDOMO STEPHAN Rep #: [id number] : 1955 F 68 From: Arthur Haines PCP: Dr. Jeremiah Martínez MD Status: REG CLI Study: Chest without Contrast Date of Exam: 03/07/24 Exam# [id number] Ordering Dr: Ana Gilman [employer]C [id number] INDICATION: LUNG MASS EXAMINATION: CT CHEST WITHOUT [...] CC: OLIVE Gilman; Dr. Jeremiah Martínez MD Senior Training Specialist: Signed Normal [facility] XR Ankle - right 3 Viewson 0 11-27-2023 No acute osseous abnormality of the right ankle. Mild soft tissue swelling overlying the lateral malleolus. Report Dictated on Electronically Signed By: Phillip Teague MD Electronically Signed Date/Time: 11/27/2023 9:20 AM EDT [facility] Patient Name: SULLY PERDOMO : 1955 [...] tissue swelling seen overlying the lateral malleolus. [facility] Gypsy Teague MD - 11/27/2023 Patient [...] Electronically Signed Date/Time: 11/27/2023 9:20 AM EDT Pain Doctor XR Ankle - right 3 ViewsOrde red By: Gypsy Teague on 11-27-2023 Pain Doctor Work Phone: XR Knee - right 3 Viewson Moderate degenerativ e narrowing involving the medial compartment of the right knee similar compared to the prior examination. Osteopenia Report Dictated on Electronically Signed By: Phillip Teague MD Electronically Signed Date/Time: 11/27/2023 9:25 AM EDT [facility] Patient Name: SULLY PERDOMO : 1955 [...] no effusion. The soft tissues are unremarkable. [facility] Gypsy Teague MD - 11/27/2023 Patient [...] Electronically Signed Date/Time: 11/27/2023 9:25 AM EDT [facility] No Panel Informationon 11-23 Radiology Study observation (narrative) [facility] MR Brain WO contraston 11-08 No acute intracranial abnormality. Postoperative changes of the paranasal sinuses. Mucosal thickening of the nasal sinuses as discussed. Frothy secretions in the right maxillary sinus nonspecific though raise possibility of acute sinusitis if in the appropriate clinical setting. Report Dictated on Electronically Signed By: Jack Navarro MD Electronically Signed Date/Time: 11/09/2023 3:48 PM [facility] Patient Name: SULLY PERDOMO : [...] orbits and extracranial soft tissues are unremarkable. [facility] Jack Navarro MD - 11/09/2023 Patient Name: SULLY PERDOMO : 1955 [id number] Exam Date/Time: 11/09/2023 14:37 Procedure: MR BRAIN [...] Electronically Signed Date/Time: 11/09/2023 3:48 PM EST [facility] [employer] Radiology Study observation (narrative) [facility] MR Brain WO contrastOrdered By: Jack Navarro on 11-09-2023 [facility] [employer] Work Phone: Gram stain for investigation of transfusion reactionOrdered By: Hai Hess on 10-23-2023 Microscopic observation Gram stain Nom (Unsp spec) [facility] Microscopic observation Gram stain Nom (Unsp spec) [facility] No Panel InformationOrdered By: Hai Hess on 10-23-2023 Nasopharyngeal Culture Pseudomonas aeruginosa [facility] Nasopharyngeal Culture Pseudomonas aeruginosa [facility] XR Chest 2 Viewson 3 Hyperinflation of the lungs with coarsening of the interstitial lung markings, suggestive of a component of obstructive lung disease. No focal consolidation is identified. Report Dictated on Electronically Signed By: Rambo Samano MD Electronically Signed Date/Time: 06/24/2023 7:31 PM [facility] Patient Name: SULLY PERDOMO : 1955 [facility] [id number] Exam Date/Time: 06/24/2023 13:49 Procedure: XR CHEST [...] are degenerative changes of the thoracic spine. [facility] Rambo Samano MD - 06/24/2023 Patient Name: [...] Electronically Signed Date/Time: 06/24/2023 7:31 PM EDT [facility] Radiology Study observation (narrative) [facility] XR Chest 2 ViewsOrdered By: Rambo Samano on 06-24-2023 [facility] [employer] Work Phone: XR Hip - left 3 Viewson 03-07 No acute osseous abnormality of the left hip. Specifically, no suspicious osseous lesions. Mild degenerative changes of both hip joints. Osteopenia. Report Dictated on Electronically Signed By: Phillip Teague MD Electronically Signed Date/Time: 03/19/2023 1:30 PM EDT [facility] Patient Name: SULLY PERDOMO : [...] diffusely osteopenic. The soft tissues are normal. [facility] Gypsy Teague MD - 03/19/2023 Patient [...] Electronically Signed Date/Time: 03/19/2023 1:30 PM EDT Pain Doctor XR Hip - left 3 ViewsOrdered By: Gypsy Teague on 03-19-2023 Pain Doctor Work Phone: XR Hip - left 3 Viewson 03-07 Radiology Study observation (narrative) [facility] No Panel Informationon 12-16 Arthritic changes. N o acute process. Report Dictated on Electronically Signed By: Angel Rao Electronically Signed Date/Time: 12/16/2022 3:02 PM EDT [facility] Patient Name: SULLY PERDOMO : 1955 [...] tissue abnormalities. No joint effusion is appreciated. [facility] Bridger RaoDO kelly - 12/16/2022 Patient Name: SULLY PERDOMO : [...] Electronically Signed Date/Time: 12/16/2022 3:02 PM EDT [facility] Radiology Study observation (narrative) [facility] No Panel InformationOrdered By: Angel Rao on 12-16-2022 [facility] [employer] Work Phone: XR Knee - right 1 [...] tissue abnormalities. No joint effusion is appreciated. [facility] Angel Rao DO - 12/16/2022 Patient [...] Electronically Signed Date/Time: 12/16/2022 3:02 PM EDT [facility] [employer] XR Chest 2 Viewson No acute cardiopulmonary process. Report Dictated on Electronically Signed By: Bartolome Aguayo Electronically Signed Date/Time: 11/28/2022 2:49 PM EDT [facility] Patient Name: SULLY PERDOMO : 1955 [...] pneumothorax. Osseous structures: No acute osseous abnormality. [facility] Bartolome Aguayo MD - 11/28/2022 Patient Name: SULLY PERDOMO : 1955 Exam [...] Electronically Signed Date/Time: 11/28/2022 2:49 PM EDT Pain Doctor XR Chest 2 ViewsOrdered By: Bartolome Aguayo on 11-28-2022 Pain Doctor Work Phone: XR Chest 2 Viewson 3 Radiology Study observation (narrative) [facility] Basic Metabolic Panelon 10-0 Anion gap [Moles/Vol] 9 mmol/L Normal 3-13 [facility] Comment on above: Performed By: #### B MP3 #### [facility] [address] [place] [address] Calcium [Mass/Vol] 9.6 mg/dL Normal 8.4-10.[address] [facility] Comment on above: Performed By: #### B MP3 #### [facility] [address] [place] [address] CO2 [Moles/Vol] 23 mmol/L Normal 22-30 [facility] Comment on above: Performed By: #### B MP3 #### [facility] [address] [place] [address] Creatinine [Mass/Vol] 0.69 mg/dL Normal 0.52-1.25 [facility] Comment on above: Performed By: #### B MP3 #### [facility] [address] [place] [address] eGFR OTHER > 90.0 Normal >60 [facility] Comment on above: Result Comment: KDIG [...] secretion. Performed By: #### B MP3 #### [facility] [address] [place] [address] GFR/1.73 sq M.predicted among blacks MDRD (S/P/Bld) [Vol rate/Area] mL/min/{1.73_m2} Normal >60 [facility] Comment on above: Performed By: #### B MP3 #### [facility] [address] [place] [address] Glucose [Mass/Vol] 100 mg/dL Normal 70-[address] [facility] Comment on above: Performed By: #### B MP3 #### [facility] [address] [place] [address] Urea nitrogen [Mass/Vol] 12 mg/dL Normal 9-20 [facility] Comment on above: Performed By: #### B MP3 #### [facility] [address] [place] [address] Chloride [Moles/Vol] 107 mmol/L Normal 98-107 [facility] Comment on above: Performed By: #### B MP3 #### [facility] [address] [place] [address] Potassium [Moles/Vol] 3.9 mmol/L Normal 3.5-5.1 [facility] Comment on above: Performed By: #### B MP3 #### [facility] [address] [place] [address] Sodium [Moles/Vol] 138 mmol/L Normal 135-[address] [facility] Comment on above: Performed By: #### B MP3 #### [facility] [address] [place] [address] CT Head or Brain w/ + w/o Co ntraston 06-11-2022 CT Head or Brain w/ + w/o Contrast Patient Name: SULLY PERDOMO Computed Tomography ACCESSION EXAM DATE/TIME PROCEDURE ORDERING PROVIDER [id number] 06/11/2022 11:[address] Head or Brain w/ + w/ MD CRISTOPHER, JEREMIAH H o Contrast CPT code 75960 Q9967 Reason For Exam (CT Head or [...] Transcribed Date and Time: 06/12/2022 12:04 Normal [facility] CR Wrist Complete 3 Views [facility] 12-01-2021 CR Wrist Complete 3 Views Right Patient Name: SULLY PERDOMO Diagnostic Radiology ACCESSION EXAM DATE/TIME PROCEDURE ORDERING PROVIDER [id number] 12/01/2021 10:20 EDT CR Wrist Complete 3 MD NATO, ANNA Flores Views Right CPT code 52911 Reason For Exam (CR Wrist Complete 3 [...] NICHOLAS Transcribed Date and Time: 12/01/2021 10:34 Normal [facility] XR WRIST RIGHT 3 VWon 2021 Patient Name: SULLY PERDOMO Diagnostic Radiology ACCESSION EXAM DATE/TIME PROCEDURE ORDERING PROVIDER [id number] 12/01/2021 10:20 EDT CR Wrist Complete 3 MD IBARRA DAVID L Views Right CPT code 08721 Reason For Exam (CR Wrist Complete 3 [...] NICHOLAS Transcribed Date and Time: 12/01/2021 10:34 [facility] Dk Florez MD - 12/01/2021 Patient Name: [facility]ULL[facility]DOM[id number] Diagnostic Radiology ACCESSION EXAM DATE/TIME PROCEDURE ORDERING PROVIDER [id number] 12/01/2021 10:20 EDT CR Wrist Complete 3 MD IBARRA DAVID L Views Right CPT code 00969 Reason For Exam (CR Wrist Complete 3 [...] Time: 12/01/2021 10:33 am Signed by: MD FLORZE NICHOLAS Transcribed Date and Time: 12/01/2021 10:34 [facility] Work Phone: Radiology Study observation (narrative) [facility] Work Phone: XR WRIST RIGHT 3 VWOrdered B y: Dk Florez on 12-01-2021 [facility] Work Phone: MRI Low Ext Joint w/o Contra st [facility] 09-20-2021 MRI Low Ext Joint w/o Contrast Right Patient Name: SULLY PERDOMO Magnetic Resonance Imaging ACCESSION EXAM DATE/TIME PROCEDURE ORDERING PROVIDER [id number] 09/20/2021 16:41 EST MRI Low Ext Joint w/o MD CRISTOPHER, JEREMIAH Oleary Contrast Right CPT code 81055 Reason For Exam (MRI Low Ext Joint [...] Transcribed Date and Time: 09/22/2021 3:57 Normal [facility] CR Knee Complete 4+ Views Ri vanessa 07-12-2021 CR Knee Complete 4+ Views Right Patient Name: SULLY PERDOMO Diagnostic Radiology ACCESSION EXAM DATE/TIME PROCEDURE ORDERING PROVIDER [id number] 07/12/2021 12:59 EDT CR Knee Complete 4+ MD CRISTOPHER, JEREMIAH H Views Right CPT code 04024 Reason For Exam (CR Knee Complete 4+ [...] Transcribed Date and Time: 07/15/2021 8:35 Normal [facility] CT Cervical Spine WO Contras tOrdered By: Anan Herrera on 01-18-2021 Patient Name: SULLY PERDOMO Computed Tomography ACCESSION EXAM DATE/TIME PROCEDURE ORDERING PROVIDER [id number] 01/18/2021 01:[address] Spine Cervical w/o ANNA BUENO Contrast CPT code 83718 Reason For Exam (CT Spine Cervical w/o [...] Phone: [facility] Incoming Radiology Results From [facility] - 01/18/2021 2:27 AM EDT Patient Name: SULLY PERDOMO Computed Tomography ACCESSION EXAM DATE/TIME PROCEDURE ORDERING PROVIDER [id number] 01/18/2021 01:[address] Spine Cervical w/o 5816 -SHARONANNA Contrast CPT code 22513 Reason For Exam (CT Spine Cervical w/o [...] CT Head WO ContrastOrdered B y: Anna Herrera on 01-18-2021 Patient Name: SULLY PERDOMO Computed Tomography ACCESSION EXAM DATE/TIME PROCEDURE ORDERING PROVIDER [id number] 01/18/2021 01:[address] Head or Brain w/o 5816 -ANNA HERRERA Contrast CPT code 53596 Reason For Exam (CT Head or Brain [...] multilevel degenerative findings. Report Dictated on Workstation: [facility] --- Final --- Dictating Physician: MD SALOMON JAMES Signed Date and Time: 01/18/2021 2:26 am Signed by: MD SALOMON JAMES Transcribed Date and Time: 01/18/2021 2:27 [facility] Work Phone: [facility] Incoming Radiology Results From [facility] - 01/18/2021 2:27 AM EDT Patient Name: SULLY PERDOMO Computed Tomography ACCESSION EXAM DATE/TIME PROCEDURE ORDERING PROVIDER [id number] 01/18/2021 01:[address] Head or Brain w/o 5816 -ANNA HERRERA Contrast CPT code 85375 Reason For Exam (CT Head or Brain [...] multilevel degenerative findings. Report Dictated on Workstation: [facility] --- Final --- Dictating Physician: MD SALOMON [...] method: Pressure wash Skin repair: Repair method: Mina Number of mina: 6 Approximation: Approximation: Close Post-procedure details: Dressing: Antibiotic ointment and bulky dressing Patient tolerance of procedure: Tolerated well, no immediate complications [facility] Work Phone: VL DUP CAROTID BILATERALon 0 10-04-2020 Patient Name: SULLY PERDOMO Ultrasound ACCESSION EXAM DATE/TIME PROCEDURE ORDERING PROVIDER [id number] 10/04/2020 10:45 EST Carotid Duplex MD MARTÍNEZ RICHARD H Ultrasound Complete CPT code 84630 Reason For Exam (VL Carotid Duplex Ultrasound [...] 10/04/2020 1:08 Cardiovascular ACCESSION EXAM DATE/TIME PROCEDURE [id number] 10/04/2020 10:45 EST Carotid Duplex Ultrasound Complete CPT code 74111 Reason For Exam (VL Carotid Duplex Ultrasound [...] JEFFREY Transcribed Date and Time: 10/04/2020 1:08 [facility] [place] [place] [facility] Incoming Cardiology Results From [facility] - 10/04/2020 1:08 PM EST Patient Name: SULLY PERDOMO [facility] [id number] Ultrasound ACCESSION EXAM DATE/TIME PROCEDURE ORDERING PROVIDER [id number] 10/04/2020 10:45 EST VL Carotid Duplex MD MARTÍNEZ RICHARD H Ultrasound Complete CPT code 15213 Reason For Exam (VL Carotid Duplex Ultrasound [...] 10/04/2020 1:08 Cardiovascular ACCESSION EXAM DATE/TIME PROCEDURE [id number] 10/04/2020 10:45 EST VL Carotid Duplex Ultrasound Complete CPT code 01260 Reason For Exam (VL Carotid Duplex Ultrasound [...] JEFFREY Transcribed Date and Time: 10/04/2020 1:08 [place], [place] CT Sinus WO Contrast Limited on 09-14-2020 Patient Name: SULLY PERDOMO Computed Tomography ACCESSION EXAM DATE/TIME PROCEDURE ORDERING PROVIDER [id number] 09/14/2020 10:[address] Maxillofacial w/o UNASSIGNED, UNASSIGNED Contrast CPT code 36415 Reason For Exam (CT Maxillofacial w/o Contrast) [...] DIANE Transcribed Date and Time: 09/14/2020 2:21 [place], [place] Iam, [facility] Incoming Radiology Results From [facility] - 09/14/2020 2:21 PM EST Patient Name: SULLY PERDOMO Computed Tomography ACCESSION EXAM DATE/TIME PROCEDURE ORDERING PROVIDER [id number] 09/14/2020 10:[address] Maxillofacial w/o UNASSIGNED, UNASSIGNED Contrast CPT code 76260 Reason For Exam (CT Maxillofacial w/o Contrast) [...] DIANE Transcribed Date and Time: 09/14/2020 2:21 [place], [place] XR CHEST (2 VW)on 08-17-2020 Patient Name: SULLY PERDOMO Diagnostic Radiology ACCESSION EXAM DATE/TIME PROCEDURE ORDERING PROVIDER [id number] 08/17/2020 11:16 EST CR Chest PA & LAT MD CRISTOPHER, JEREMIAH Oleary CPT code 03564 Reason For Exam (CR Chest PA & [...] was communicated to JEREMIAH MARTÍNEZ via the [employer] Critical Result system on 08/17/2020 12:41 PM EST, Message ID [id number]. Report Dictated on --- Final --- Dictating Physician: ANNA ELIAS DO, I Signed Date and Time: 08/17/2020 12:41 pm Signed by: ANNA ELIAS DO, I Transcribed Date and Time: 08/17/2020 12:42 [facility] [place] [facility] Incoming Radiology Results From [facility] - 08/17/2020 12:42 PM EST Patient Name: SULLY PERDOMO Diagnostic Radiology ACCESSION EXAM DATE/TIME PROCEDURE ORDERING PROVIDER [id number] 08/17/2020 11:16 EST CR Chest PA & LAT MD CRISTOPHER, JEREMIAH Oleary CPT code 86640 Reason For Exam (CR Chest PA & [...] was communicated to JEREMIAH MARTÍNEZ via the [employer] Critical Result system on 08/17/2020 12:41 PM EST, Message ID [id number]. Report Dictated on --- Final --- Dictating Physician: ANNA ELIAS DO, I Signed Date and Time: 08/17/2020 12:41 pm Signed by: ANNA ELIAS DO, I Transcribed Date and Time: 08/17/2020 12:42 [facility], [place] CT CERVICAL SPINE WO CONTRAS Ton 06-24-2020 Patient Name: SULLY PERDOMO ---CT--- Exam Date/Time 06/24/2020 08:40:[address] Spine Cervical w/o Contrast Ordering Physician 57Marilu -JHONATAN QUIROS Accession Number [id number] CPT4 Codes 42433 () Reason For Exam Fall. Pain Report [...] WILLIAM Transcribed Date and Time: 06/24/2020 9:07 [facility] [place] [facility] Incoming Radiology Results From [facility] - 06/24/2020 9:08 AM EDT Patient Name: SULLY PERDOMO ---CT--- Exam Date/Time 06/24/2020 08:40:[address] Spine Cervical w/o Contrast Ordering Physician JHONATAN [place] Accession Number [id number] CPT4 Codes 50063 () Reason For Exam Fall. Pain Report [...] WILLIAM Transcribed Date and Time: 06/24/2020 9:07 [place], [place] CT FACIAL BONES WO CONTRASTo n 06-24-2020 Patient Name: SULLY PERDOMO ---CT--- Exam Date/Time 06/24/2020 08:40:[address] Maxillofacial w/o Contrast Ordering Physician JHONATAN [place] Accession Number [id number] CPT4 Codes 85121 () Reason For Exam Fall with nasal [...] WILLIAM Transcribed Date and Time: 06/24/2020 9:07 [facility] [place] [place] [facility] Incoming Radiology Results From [facility] - 06/24/2020 9:07 AM EDT Patient Name: SULLY PERDOMO ---CT--- Exam Date/Time 06/24/2020 08:40:[address] Maxillofacial w/o Contrast Ordering Physician JHONATAN [place] Accession Number [id number] CPT4 Codes 73745 () Reason For Exam Fall with nasal [...] WILLIAM Transcribed Date and Time: 06/24/2020 9:07 [facility] [place] [facility]ASTon [facility] Patient Name: SULLY PERDOMO ---CT--- Exam Date/Time 06/24/2020 08:40:[address] Head or Brain w/o Contrast Ordering Physician JHONATAN [place] Accession Number [id number] CPT4 Codes 25951 () Reason For Exam Fall. Head injury. [...] I Transcribed Date and Time: 06/24/2020 8:57 [place] [facility] Incoming Radiology Results From [facility] - 06/24/2020 8:58 AM EDT Patient Name: SULLY PERDOMO ---CT--- Exam Date/Time 06/24/2020 08:40:[address] Head or Brain w/o Contrast Ordering Physician JHONATAN [place] Accession Number [id number] CPT4 Codes 54119 () Reason For Exam Fall. Head injury. [...] I Transcribed Date and Time: 06/24/2020 8:57 [facility] [place] XR CLAVICLE RIGHTon 11-08-19 Patient Name: SULLY PERDOMO ---Diagnostic Radiology--- Exam Date/Time 11/08/2019 12:55:00 EST Exam CR Clavicle Complete Right Ordering Physician MD CRISTOPHER, JEREMIAH Oleary Accession Number [id number] CPT4 Codes 00856 () Reason For Exam rt shoulder pain [...] RISA Transcribed Date and Time: 11/08/2019 1:20 [place], [place] [facility], [facility] Incoming Radiology Results From [facility] - 11/08/2019 1:20 PM EST Patient Name: SULLY PERDOMO ---Diagnostic Radiology--- Exam Date/Time 11/08/2019 12:55:00 EST Exam CR Clavicle Complete Right Ordering Physician MD MARTÍNEZ RICHARD H Accession Number [id number] CPT4 Codes 76542 () Reason For Exam rt shoulder pain [...] RISA Transcribed Date and Time: 11/08/2019 1:20 [facility] [place] XR KNEE RIGHT (MIN 4 VIEWS)o n 11-08-2019 Patient Name: SULLY PERDOMO ---Diagnostic Radiology--- Exam Date/Time 11/08/2019 12:55:00 EST Exam CR Knee Complete 4+ Views Right Ordering Physician MD MARTÍNEZ RICHARD H Accession Number [id number] CPT4 Codes 89155 () Reason For Exam rt knee pain [...] NEIL Transcribed Date and Time: 11/08/2019 1:46 [place], [place] Iam, [facility] Incoming Radiology Results From [facility] - 11/08/2019 1:46 PM EST Patient Name: SULLY PERDOMO ---Diagnostic Radiology--- Exam Date/Time 11/08/2019 12:55:00 EST Exam CR Knee Complete 4+ Views Right Ordering Physician MD CRISTOPHER, JEREMIAH Oleary Accession Number [id number] CPT4 Codes 28522 () Reason For Exam rt knee pain [...] NEIL Transcribed Date and Time: 11/08/2019 1:46 [place], [place] XR Shoulder Right 2 VWon Patient Name: SULLY PERDOMO ---Diagnostic Radiology--- Exam Date/Time 11/08/2019 12:55:00 EST Exam CR Shoulder 2+ Views Right Ordering Physician MD MARTÍNEZ RICHARD H Accession Number [id number] CPT4 Codes 97114 () Reason For Exam rt shoulder pain [...] RISA Transcribed Date and Time: 11/08/2019 1:18 [place] [facility], [facility] Incoming Radiology Results From [facility] - 11/08/2019 1:18 PM EST Patient Name: SULLY PERDOMO ---Diagnostic Radiology--- Exam Date/Time 11/08/2019 12:55:00 EST Exam CR Shoulder 2+ Views Right Ordering Physician MD MARTÍNEZ RICHARD H Accession Number [id number] CPT4 Codes 02042 () Reason For Exam rt shoulder pain [...] RISA Transcribed Date and Time: 11/08/2019 1:18 [place], [place] CR Hip w/ Pelvis 2 or 3 View s Righton 2019 CR Hip w/ Pelvis 2 or 3 Views Right Patient Name: SULLY PERDOMO Diagnostic Radiology Exam Date/Time 2019 09:06:38 EST Exam CR Hip w/ Pelvis 2 or 3 Views Right n Ordering Physician MD GARCES SALVATORE J Accession Number [id number] CPT4 Codes 88213 () Reason For Exam PAIN Report RIGHT [...] Transcribed Date and Time: 2019 2:48 Normal [facility] XR HIP RIGHT (2-3 VIEWS)on 09-19-2018 Patient Name: SULLY PERDOMO ---Diagnostic Radiology--- Exam Date/Time 2019 09:06:38 EST Exam CR Hip w/ Pelvis 2 or 3 Views Right n Ordering Physician MD GARCES SALVATORE J Accession Number [id number] CPT4 Codes 15736 () Reason For Exam PAIN Report RIGHT [...] R Transcribed Date and Time: 2019 2:48 [facility], [facility] Incoming Radiology Results From [facility] - 2019 2:51 PM EST Patient Name: SULLY PERDOMO ---Diagnostic Radiology--- Exam Date/Time 2019 09:06:38 EST Exam CR Hip w/ Pelvis 2 or 3 Views Right n Ordering Physician MD GARCES SALVATORE J Accession Number [id number] CPT4 Codes 45625 () Reason For Exam PAIN Report RIGHT [...] R Transcribed Date and Time: 2019 2:48 [facility] [place] CR Hip w/ Pelvis 2 or 3 View s Righton 06-22-2019 CR Hip w/ Pelvis 2 or 3 Views Right Patient Name: SULLY PERDOMO Diagnostic Radiology Exam Date/Time 06/22/2019 10:46:02 EDT Exam CR Hip w/ Pelvis 2 or 3 Views Right n Ordering Physician MD DEZ, NILESH Ibrahim Accession Number [id number] CPT4 Codes 20212 () Reason For Exam closed displaced interchanteric [...] Transcribed Date and Time: 06/22/2019 1:15 Normal [facility] XR HIP RIGHT (2-3 VIEWS)on 1 Patient Name: SULLY PERDOMO ---Diagnostic Radiology--- Exam Date/Time 06/22/2019 10:46:02 EDT Exam CR Hip w/ Pelvis 2 or 3 Views Right n Ordering Physician MD GARCES SALVATORE J Accession Number [id number] CPT4 Codes 28596 () Reason For Exam closed displaced interchanteric [...] KRIKOR Transcribed Date and Time: 06/22/2019 1:15 [facility] Incoming Radiology Results From [facility] - 06/22/2019 1:18 PM EDT Patient Name: SULLY PERDOMO ---Diagnostic Radiology--- Exam Date/Time 06/22/2019 10:46:02 EDT Exam CR Hip w/ Pelvis 2 or 3 Views Right n Ordering Physician MD GARCES SALVATORE J Accession Number [id number] CPT4 Codes 32208 () Reason For Exam closed displaced interchanteric [...] KRIKOR Transcribed Date and Time: 06/22/2019 1:15 [place], [place] CBCon 06-13-2019 Erythrocyte distribution width (RBC) [Ratio] 14.7 % High 11.5 - 14.5 % [place] Hematocrit (Bld) [Volume fraction] 32.6 % Low 35 - 47 % [place] Hemoglobin (Bld) [Mass/Vol] 11.0 g/dL Low 11.7 - 16 g/dL [place] Interpretation and review of laboratory results Abnormal [place] MCH (RBC) [Entitic mass] 32.5 pg 26 - 34 pg [place] MCHC (RBC) [Mass/Vol] 33.8 % 32 - 36 % [place] MCV (RBC) [Entitic vol] 96.3 fL 79 - 98 fL [place] Platelet mean volume (Bld) [Entitic vol] 6.5 fL Low 7.4 - 10.4 fL [place] Platelets (Bld) [#/Vol] 276 10*3/uL 140 - 440 10*3/uL [place] RBC (Bld) [#/Vol] 3.39 10*6/uL Low 3.8 - 5.2 10*6/uL [place] WBC (Bld) [#/Vol] 10.6 10*3/uL 3.6 - 10.7 10*3/uL [place] Test Performed by [facility], [address] [place] [address] [place] CBC Auto Differentialon 10-0 Absolute Baso # 0.1 10*3/uL 0 - 0.2 10*3/uL [place] Absolute Neut # 8.8 10*3/uL High 1.8 - 7 10*3/uL [place] Basophils/100 WBC (Bld) 0.5 % 0 - 2 % [place] Eosinophils (Bld) [#/Vol] 0.0 10*3/uL 0 - 0.5 10*3/uL [place] Eosinophils/100 WBC (Bld) 0.0 % Low 1 - 6 % [place] Erythrocyte distribution width (RBC) [Ratio] 14.4 % 11.5 - 14.5 % [place] Granulocytes/100 WBC (Bld) 79.3 % 40 - 80 % [place] Hematocrit (Bld) [Volume fraction] 32.3 % Low 35 - 47 % [place] Hemoglobin (Bld) [Mass/Vol] 10.9 g/dL Low 11.7 - 16 g/dL [place] Interpretation and review of laboratory results Abnormal [place] Lymphocytes (Bld) [#/Vol] 1.2 10*3/uL 1 - 4.3 10*3/uL [place] Lymphocytes/100 WBC (Bld) 11.1 % Low 20 - 40 % [place] MCH (RBC) [Entitic mass] 32.3 pg 26 - 34 pg [place] MCHC (RBC) [Mass/Vol] 33.8 % 32 - 36 % [place] MCV (RBC) [Entitic vol] 95.5 fL 79 - 98 fL [place] Monocytes (Bld) [#/Vol] 1.0 10*3/uL High 0 - 0.8 10*3/uL [place] Monocytes/100 WBC (Bld) 9.1 % 2 - 10 % [place] Platelet mean volume (Bld) [Entitic vol] 6.5 fL Low 7.4 - 10.4 fL [place] Platelets (Bld) [#/Vol] 258 10*3/uL 140 - 440 10*3/uL [place] RBC (Bld) [#/Vol] 3.38 10*6/uL Low 3.8 - 5.2 10*6/uL [place] WBC (Bld) [#/Vol] 11.2 10*3/uL High 3.6 - 10.7 10*3/uL [place] Test Performed by [facility], [address] [place], [place], [place] [address] [place] EKG 12 Lead - Chest Painon 1 [facility] Test Date: 2019-06-11 Pat Name: Sully Conor Department: 2AED Room: 154 Gender: F Instructor Psychiatric Aide: HC : 1955 Requested By: [employer] ED Order Number: [id number] Reading MD: Idania Salazar Measurements Intervals Manning Rate: 83 P: 67 CT: 172 QRS: 37 QRSD: 118 T: -67 QT: 420 QTc: 494 Interpretive Statements SINUS RHYTHM INCOMPLETE RIGHT BUNDLE BRANCH BLOCK Compared to ECG 11/18/2017 03:15:50 Incomplete right bundle-branch block now present T-wave abnormality no longer present Electronically Signed On 06-12-2019 7:28:11 EDT by Idania Salazar [place] Iam, [facility] Incoming Cardiology Results From [facility] - 06/12/2019 7:29 AM EDT [facility] Test Date: 2019-06-11 Pat Name: Sully Conor Department: 2AED Room: 154 Gender: F Instructor Psychiatric Aide: HC : 1955 Requested By: [employer] ED Order Number: [id number] Reading MD: Idania Salazar Measurements Intervals Manning Rate: 83 P: 67 CT: 172 QRS: 37 QRSD: 118 T: -67 QT: 420 QTc: 494 Interpretive Statements SINUS RHYTHM INCOMPLETE RIGHT BUNDLE BRANCH BLOCK Compared to ECG 11/18/2017 03:15:50 Incomplete right bundle-branch block now present T-wave abnormality no longer present Electronically Signed On 06-12-2019 7:28:11 EDT by Idania Salazar [place] APTTon 06-11-2019 aPTT Coag (Bld) [Time] 24.3 s 20 - 30.5 s [place] Comment on above: NOTE: The therapeuti c time for Heparin anticoagulation, based on Xa activity inhibition, is an APTT of 46-80 seconds. Comprehensive Metabolic Pane ruben 06-11-2019 Albumin [Mass/Vol] 4.8 g/dL 3.5 - 5 g/dL [place] ALP [Catalytic activity/Vol] 66 U/L 38 - 126 U/L [place] ALT [Catalytic activity/Vol] 31 U/L 13 - 69 U/L [place] Anion gap [Moles/Vol] 10 mmol/L [place] AST [Catalytic activity/Vol] 32 U/L 15 - 46 U/L [place] Bilirubin Ql (U) 0.5 mg/dL 0.2 - 1.3 mg/dL [place] Calcium [Mass/Vol] 9.2 mg/dL 8.4 - 10. 4 mg/dL [place] Chloride [Moles/Vol] 107 mmol/L 98 - 10 7 mmol/L [place] CO2 [Moles/Vol] 23 mmol/L 22 - 30 mmol/L [place] Creatinine [Mass/Vol] 0.65 mg/dL 0.52 - 1.25 mg/dL [place] EGFR IF NonAfrican Kosovan >60.0 >60 mL/m in [place] Comment on above: Source- MDRD equatio n with creatinine calibration to IDMS(NKDEP) eGFR not recommended for drug dose adjustment GFR/1.73 sq M predicted among blacks MDRD (S/P/Bld) [Vol rate/Area] mL/min/{1.73_m2} >60 mL/min [place] Glucose [Mass/Vol] 113 mg/dL High 70 - 100 mg/dL [place] Interpretation and review of laboratory results Abnormal [place] Potassium [Moles/Vol] 3.7 mmol/L 3.5 - 5.1 mmol/L [place] Protein [Mass/Vol] 8.4 g/dL High 6.3 - 8.2 g/dL [place] Sodium [Moles/Vol] 140 mmol/L 135 - 145 mmol/L [place] Urea nitrogen [Mass/Vol] 12 mg/dL 7 - 20 mg/dL [place] Test Performed by [facility], [address], [place], [place] [id number] [place] [address] Hemogram (CBC) w/Auto Diffon 06-11-2019 Absolute Baso # 0.1 10*3/uL 0 - 0.2 10*3/uL [place] Absolute Neut # 10.0 10*3/uL High 1.8 - 7 10*3/uL [place] Basophils/100 WBC (Bld) 0.6 % 0 - 2 % [place] Eosinophils (Bld) [#/Vol] 0.1 10*3/uL 0 - 0.5 10*3/uL [place] Eosinophils/100 WBC (Bld) 0.8 % Low 1 - 6 % [place] Erythrocyte distribution width (RBC) [Ratio] 14.9 % High 11.5 - 14.5 % [place] Granulocytes/100 WBC (Bld) 80.0 % 40 - 80 % [place] Hematocrit (Bld) [Volume fraction] 41.0 % 35 - 47 % [place] Hemoglobin (Bld) [Mass/Vol] 14.0 g/dL 11.7 - 16 g/dL [place] Interpretation and review of laboratory results Abnormal [place] Lymphocytes (Bld) [#/Vol] 1.8 10*3/uL 1 - 4.3 10*3/uL [place] Lymphocytes/100 WBC (Bld) 14.7 % Low 20 - 40 % [place] MCH (RBC) [Entitic mass] 32.6 pg 26 - 34 pg [place] MCHC (RBC) [Mass/Vol] 34.2 % 32 - 36 % [facility] [place], [place] MCV (RBC) [Entitic vol] 95.4 fL 79 - 98 fL [place] Monocytes (Bld) [#/Vol] 0.5 10*3/uL 0 - 0.8 10*3/uL [place] Monocytes/100 WBC (Bld) 3.9 % 2 - 10 % [place] Platelet mean volume (Bld) [Entitic vol] 6.1 fL Low 7.4 - 10.4 fL [place] Platelets (Bld) [#/Vol] 320 10*3/uL 140 - 440 10*3/uL [place] RBC (Bld) [#/Vol] 4.30 10*6/uL 3.8 - 5.2 10*6/uL [place] WBC (Bld) [#/Vol] 12.5 10*3/uL High 3.6 - 10.7 10*3/uL [place] Test Performed by [facility], [address] [place] [address] Otheron 06-11-2019 Test Performed by [facility], [address] [place] [address] [employer]-INRon 06-11-2019 INR Coag (PPP) [Relative time] 1.0 {INR} [place] Comment on above: Recommended Anticoag ulant [...] [Time] 10.2 s 9 - 12 s [place] Comment on above: . TYPE AND SCREENon 06-11-2019 Sodium [Moles/Vol] AB [place] Sodium [Moles/Vol] Positive [place] Comment on above: Test Performed by [facility], [address], [place], [place] [address] Sodium [Moles/Vol] Negative [place] Comment on above: Test Performed by [facility], [address], [place] [address] Test Performed by [facility], [address], [place], [place] [address] [place] Troponin x1on 06-11-2019 Troponin I.cardiac [Mass/Vol] ng/mL 0 - 0.034 ng/mL [place] Comment on above: . Test Performed by [facility], [address], [place], [place] [address] [place] XR CHEST 1 VWon 06-11-2019 Patient Name: SULLY PERDOMO ---Diagnostic Radiology--- Exam Date/Time 06/11/2019 02:36:59 EDT Exam CR Chest 1 View Frontal Ordering Physician CHARLENE LINDSEY Accession Number [id number] CPT4 Codes 21016 () Reason For Exam pre op Report [...] ALFRED Transcribed Date and Time: 06/11/2019 2:56 [place] Iam, [facility] Incoming Radiology Results From [facility] - 06/11/2019 2:56 AM EDT Patient Name: SULLY PERDOMO ---Diagnostic Radiology--- Exam Date/Time 06/11/2019 02:36:59 EDT Exam CR Chest 1 View Frontal Ordering Physician CHARLENE LINDSEY Accession Number [id number] CPT4 Codes 70252 () Reason For Exam pre op Report [...] No acute process. Report Dictated on Workstation: [id number] --- Final --- Dictating Physician: DO RAO ALFRED Signed Date and Time: 06/11/2019 2:54 am Signed by: DO RAO ALFRED Transcribed Date and Time: 06/11/2019 2:56 [place] XR FEMUR RIGHT (MIN 2 VIEWS) on 06-11-2019 [facility], [facility] Incoming Radiology Results From [facility] - 06/11/2019 3:34 AM EDT Patient Name: SULLY PERDOMO ---Diagnostic Radiology--- Exam Date/Time 06/11/2019 02:59:53 EDT Exam CR Femur 2+ Views Right n Ordering Physician DO MOY DAVID J Accession Number [id number] CPT4 Codes 93639 () Reason For Exam Right hip pain [...] the right hip Report Dictated on Workstation: [email or web address] --- Final --- Dictating Physician: DO RAO ALFRED Signed Date and Time: 06/11/2019 3:33 am Signed by: DO RAO ALFRED Transcribed Date and Time: 06/11/2019 3:34 [place] Patient Name: SULLY PERDOMO ---Diagnostic Radiology--- Exam Date/Time 06/11/2019 02:59:53 EDT Exam CR Femur 2+ Views Right n Ordering Physician DO MOY DAVID J Accession Number [id number] CPT4 Codes 99607 () Reason For Exam Right hip pain [...] the right hip Report Dictated on Workstation: [email or web address] --- Final --- Dictating Physician: DO RAO ALFRED Signed Date and Time: 06/11/2019 3:33 am Signed by: DO RAO ALFRED Transcribed Date and Time: 06/11/2019 3:34 [place] XR HIP RIGHT (2-3 VIEWS)on Iam, [facility] Incoming Radiology Results From [facility] - 06/11/2019 1:24 AM EDT Patient Name: SULLY PERDOMO ---Diagnostic Radiology--- Exam Date/Time 06/11/2019 01:16:17 EDT Exam CR Hip w/ Pelvis 2 or 3 Views Right n Ordering Physician DO MOY DAVID J Accession Number [id number] CPT4 Codes 27360 () Reason For Exam Fall right hip [...] the right hip.. Report Dictated on Workstation: [email or web address] [id number] --- Final --- Dictating Physician: DO RAO ALFRED Signed Date and Time: 06/11/2019 1:23 am Signed by: DO RAO ALFRED Transcribed Date and Time: 06/11/2019 1:24 [place] Patient Name: SULLY PERDOMO ---Diagnostic Radiology--- Exam Date/Time 06/11/2019 01:16:17 EDT Exam CR Hip w/ Pelvis 2 or 3 Views Right n Ordering Physician DO MOY DAVID J Accession Number [id number] CPT4 Codes 91107 () Reason For Exam Fall right hip [...] ALFRED Transcribed Date and Time: 06/11/2019 1:24 [place] Diagnostic Catherizationon 0 06-01-2019 Diagnostic Catherization Patient Name: SULLY MERCADO [employer] Work[employer] Exam Date/Time 06/01/2019 07:40:02 EDT Exam Diagnostic Catherization Ordering Physician MD SHULTZ WILLIAM Accession Number [id number] Report [facility] CARDIOVASCULAR [place] -------- CARDIAC CATHETERIZATION Patient: Sully Perdomo Procedure Date: 06/01/2019 : 1955 Age: 63 Gender: F Patient Type: Outpatient Procedure physician: Jorge L Shultz MD Fellow: Referring Physician: Jeremiah Martínez William, [...] + +LV pressure s/d, ed +141/15, 23, dP/mf=307 mm Hg/s+ + -----+ + +Arterial pressure s/d (m)+137/72 (101) + + -----+ + Prepared and electronically signed by Jorge L Shultz MD 06/01/2019 13:06 Final Dictated: 06/01/2019 1:06 pm Dictating Physician: MD SHULTZ WILLIAM Signed Date and Time: 06/01/2019 1:06 pm Signed by: MD SHULTZ WILLIAM [facility] [place] Cardiac Stress Test Nucle ar Imagingon [...] dyspnea and due to moderate fatigue. A health analytics consultant was used while patient was on the [...] peak heart rate [place] blood pressure [place] [address] mm Hg/min. Stress testing did not produce [...] signed by Trina Mays MD 05/23/2019 15:19 [facility] [place] Royce Vitale Incoming Cardiology Results From [employer] [place] - 05/23/2019 3:19 PM EDT Nuclear Stress Myocardial Perfusion Study Dereck Protocol Gated SPECT Patient: Sully Perdomo Height: (67 in) Weight: (158 lb) : 1955 Age: 63 Gender: F Study Date: 05/23/2019 Accession#: Patient Room #: *ORDERING PHYSICIAN: * Jermeiah Martínez *SUPERVISING PHYSICIAN: * Cayetano Esteban *RN: [...] dyspnea and due to moderate fatigue. A health analytics consultant was used while patient was on the [...] peak heart rate and blood pressure [place] 25400 mm Hg/min. Stress testing did not produce [...] signed by Trina Mays MD 05/23/2019 15:19 [place] Vital Signs Date Time Vital Sign Value Performing Clinician Facility 11-08-2024 08:52-0500 Body height 167.[address] Jeremiah Martínez MD [facility] 11-08-2024 08:52-0500 Body mass index (BMI) [Ratio] 18.7 kg/m2 Dr. Jeremiah Martínez MD [facility] 11-08-2024 08:52-0500 Body temperature 98.5 [degF] Dr. Jeremiah Martínez MD [facility] 11-08-2024 08:52-0500 Body weight 52.[address] Jeremiah Martínez MD [facility] 11-08-2024 08:52-0500 Diastolic blood pressure 75 mm[Hg] Dr. Jeremiah Martínez MD [facility] 11-08-2024 08:52-0500 Heart rate 85 /min Dr. Jeremiah Martínez MD [facility] 11-08-2024 08:52-0500 Inhaled oxygen flow rate 2 L/min Dr. Jeremiah Martínez MD [facility] 11-08-2024 08:52-0500 Respiratory rate 20 /min Dr. Jeremiah Martínez MD [facility] 11-08-2024 08:52-0500 SaO2% (BldA) [Mass fraction] 96 % Dr. Jeremiah Martínez MD [facility] 11-08-2024 08:52-0500 Systolic blood pressure 136 mm[Hg] Dr. Jeremiah Martínez MD [facility] 10-14-2024 11:30-0500 Diastolic blood pressure 76 mm[Hg] Harpal Cuevas MD Work Phone: [facility] 10-14-2024 11:30-0500 Heart rate 74 /min Harpal Cuevas MD Work Phone: [facility] 10-14-2024 11:30-0500 Respiratory rate 16 /min Harpal Cuevas MD Work Phone: [facility] 10-14-2024 11:30-0500 SaO2% (BldA) [Mass fraction] 95 % Harpal Cuevas MD Work Phone: [facility] 10-14-2024 11:30-0500 Systolic blood pressure 142 mm[Hg] Harpal Cuevas MD Work Phone: [facility] 10-14-2024 09:16-0500 Body height 165.1 cm Harpal Cuevas MD Work Phone: [facility] 10-14-2024 09:16-0500 Body mass index (BMI) [Ratio] 19.64 kg/m2 Harpal Cuevas MD Work Phone: [facility] 10-14-2024 09:16-0500 Body temperature 98.29 [degF] Harpal Cuevas MD Work Phone: [facility] 10-14-2024 09:16-0500 Body weight 53.52 kg Harpal Cuevas MD Work Phone: [facility] 09-30-2024 07:54-0500 Body mass index (BMI) [Ratio] 19.4 kg/m2 Dr. Jeremiah Martínez MD [facility] 09-30-2024 07:54-0500 Body temperature 97.7 [degF] Dr. Jeremiah Martínez MD [facility] 09-30-2024 07:54-0500 Body weight 54.[address] Jeremiah Martínez MD [facility] 09-30-2024 07:54-0500 Diastolic blood pressure 79 mm[Hg] Dr. Jeremiah Martínez MD [facility] 09-30-2024 07:54-0500 Heart rate 78 /min Dr. Jeremiah Martínez MD [facility] 09-30-2024 07:54-0500 Inhaled oxygen flow rate 2 L/min Dr. Jeremiah Martínez MD [facility] 09-30-2024 07:54-0500 Respiratory rate 18 /min Dr. Jeremiah Martínez MD [facility] 09-30-2024 07:54-0500 SaO2% (BldA) [Mass fraction] 93 % Dr. Jeremiah Martínez MD [facility] 09-30-2024 07:54-0500 Systolic blood pressure 156 mm[Hg] Dr. Jeremiah Martínez MD [facility] 08-30-2024 07:46-0500 Body mass index (BMI) [Ratio] 19.3 kg/m2 Dr. Jeremiah Martínez MD [facility] 08-30-2024 07:46-0500 Body temperature 97.6 [degF] Dr. Jeremiah Martínez MD [facility] 08-30-2024 07:46-0500 Body weight 54.[address] Jeremiah Martínez MD [facility] 08-30-2024 07:46-0500 Diastolic blood pressure 77 mm[Hg] Dr. Jeremiah Martínez MD [facility] 08-30-2024 07:46-0500 Heart rate 76 /min Dr. Jeremiah Martínez MD [facility] 08-30-2024 07:46-0500 Inhaled oxygen flow rate 2 L/min Dr. Jeremiah Martínez MD [facility] 08-30-2024 07:46-0500 Respiratory rate 18 /min Dr. Jeremiah Martínez MD [facility] 08-30-2024 07:46-0500 SaO2% (BldA) [Mass fraction] 95 % Dr. Jeremiah Martínez MD [facility] 08-30-2024 07:46-0500 Systolic blood pressure 166 mm[Hg] Dr. Jeremiah Martínez MD [facility] 01-21-2024 09:22-0400 Body height 167.6 cm Nery Ruiz MD Work Phone: [facility] 01-21-2024 09:22-0400 Body mass index (BMI) [Ratio] 19.05 kg/m2 Nery Ruiz MD Work Phone: [facility] 01-21-2024 09:22-0400 Body weight 53.52 kg Nery Ruiz MD Work Phone: [facility] 12-07-2023 07:47-0400 Body height 168.[address] Jeremiah Martínez Work Phone: [facility] 12-07-2023 07:47-0400 Body mass index (BMI) [Ratio] 19.1 kg/m2 Dr. Jeremiah Martínez Work Phone: [facility] 12-07-2023 07:47-0400 Body temperature 97.4 [degF] Dr. Jeremiah Martínez Work Phone: [facility] 12-07-2023 07:47-0400 Body weight 54.[address] Jeremiah Martínez Work Phone: [facility] 12-07-2023 07:47-0400 Diastolic blood pressure 73 mm[Hg] Dr. Jeremiah Martínez Work Phone: [facility] 12-07-2023 07:47-0400 Heart rate 69 /min Dr. Jeremiah Martínez Work Phone: [facility] 12-07-2023 07:47-0400 Respiratory rate 18 /min Dr. Jeremiah Martínez Work Phone: [facility] 12-07-2023 07:47-0400 SaO2% (BldA) [Mass fraction] 96 % Dr. Jeremiah Martínez Work Phone: [facility] 12-07-2023 07:47-0400 Systolic blood pressure 126 mm[Hg] Dr. Jeremiah Martínez Work Phone: [facility] 04-16-2023 09:17-0400 Body height 167.6 cm Ellen Kalka PA-C Work Phone: [facility] 04-16-2023 09:17-0400 Body weight 55.79 kg Ellen Kalka PA-C Work Phone: [facility] 04-16-2023 09:17-0400 Diastolic blood pressure 72 mm[Hg] Ellen Kalka PA-C Work Phone: [facility] 04-16-2023 09:17-0400 Heart rate 82 /min Ellen Kalka PA-C Work Phone: [facility] 04-16-2023 09:17-0400 Systolic blood pressure 130 mm[Hg] Ellen Kalka PA-C Work Phone: [facility] 12-01-2021 10:00-0400 Body height 167.6 cm Anna Ibarra MD Work Phone: [facility] 12-01-2021 10:00-0400 Body mass index (BMI) [Ratio] 25.02 kg/m2 Anna Ibarra MD Work Phone: [facility] 12-01-2021 10:00-0400 Body temperature 99.5 [degF] Anna Ibarra MD Work Phone: [facility] 12-01-2021 10:00-0400 Body weight 70.31 kg Anna Ibarra MD Work Phone: [facility] 12-01-2021 10:00-0400 Diastolic blood pressure 76 mm[Hg] Anna Ibarra MD Work Phone: [facility] 12-01-2021 10:00-0400 Heart rate 84 /min Anna Ibarra MD Work Phone: [facility] 12-01-2021 10:00-0400 Respiratory rate 16 /min Anna Ibarra MD Work Phone: [facility] 12-01-2021 10:00-0400 SaO2% (BldA) [Mass fraction] 96 % Anna [facility]barra MD [facility] Phone[facility] 12-01-2021 10:00-0400 Systolic blood pressure 151 mm[Hg] Anna Ibarra MD Work Phone: [facility] 01-18-2021 03:36-0400 Diastolic blood pressure 49 mm[Hg] Anna Herrera MD Work Phone: [facility] Work Phone: 01-18-2021 03:36-0400 Heart rate 72 /min Anna Herrera MD Work Phone: [facility] Work Phone: 01-18-2021 03:36-0400 SaO2% (BldA) [Mass fraction] 93 % Anna Herrera MD Work Phone: [facility] Work Phone: 01-18-2021 03:36-0400 Systolic blood pressure 107 mm[Hg] Anna Herrera MD Work Phone: [facility] Work Phone: 01-18-2021 00:28-0400 Body height 167.6 cm Anna Herrera MD Work Phone: [facility] Work Phone: 01-18-2021 00:28-0400 Body mass index (BMI) [Ratio] 27.12 kg/m2 Anna Herrera MD Work Phone: [facility] Work Phone: 01-18-2021 00:28-0400 Body temperature 98.1 [degF] Anna Herrera MD Work Phone: [facility] Work Phone: 01-18-2021 00:28-0400 Body weight 76.2 kg Anna Herrera MD Work Phone: [facility] Work Phone: 01-18-2021 00:28-0400 Respiratory rate 16 /min Anna Herrera MD Work Phone: [facility] Work Phone: 06-24-2020 09:09-0400 BP Diastolic 72 mm[Hg[facility] [place] 06-24-2020 09:09-0400 BP Systolic 133 mm[Hg] [facility] [place] 06-24-2020 09:09-0400 Pulse (Heart Rate) 77 /min [facility] 06-24-2020 09:09-0400 Pulse Oximetry 93 % [facility] [place] 06-24-2020 09:09-0400 Respiratory Rate 14 /min [facility], [place] 06-24-2020 08:01-0400 BMI (Body Mass Index) 27.28 kg/m2 [facility] 06-24-2020 08:01-0400 Body Temperature 97.59 [degF] [facility] 06-24-2020 08:01-0400 Body weight 76.66 kg [facility] [place] 06-24-2020 08:01-0400 Height 167.6 cm [facility] [place] 06-14-2019 07:39-0400 Body Temperature 98.49 [degF] [facility], [place] 06-14-2019 07:39-0400 BP Diastolic 80 mm[Hg] [facility] , [place] 06-14-2019 07:39-0400 BP Systolic 119 mm[Hg] [facility] , [place] 06-14-2019 07:39-0400 Pulse (Heart Rate) 69 /min [facility] 06-14-2019 07:39-0400 Pulse Oximetry 95 % [facility] , [place] 06-14-2019 07:39-0400 Respiratory Rate 18 /min [facility], [place] 06-11-2019 04:15-0400 BMI (Body Mass Index) 26.47 kg/m2 [facility] 06-11-2019 04:15-0400 Body weight 76.[address] [facility] , [place] 06-11-2019 04:140400 Height 170.2 cm Anna Moy [facility] , [place] 05-23-2019 08:12-0400 BMI (Body Mass Index) 24.75 kg/m2 Jeremiah Garcia [facility], [place] 05-23-2019 08:12-0400 Body weight 71.67 kg [facility] , [place] 05-23-2019 08:12-0400 Height 170.2 cm Jeremiah Martínez [facility] , [place] Encounters Encounter Date Encounter Type Care Provider Facility Start: 03-04-2025 End: 03-04-2025 ambulatory Imelda Jackson RN [facility] Clinical Communication Start: 03-04-2025 End: 03-04-2025 Patient encounter procedure Imelda Jackson RN [facility] Clinical Communication Start: 03-03-2025 End: 03-03-2025 Subsequent hospital visit by physician Jeremiah Martínez MD Work Phone: [facility] Radiology Comment on above: Cervicalgia; Pain in unspecified shoulder Start: 03-03-2025 End: 03-03-2025 ambulatory JEREMIAH [facility] Start: 02-18-2025 End: 02-20-2025 Derrick Ruiz MD Work Phone: [facility] ENT - [place] Start: 02-13-2025 End: 02-13-2025 Telephone encounter Gopi Bess MD Work Phone: [facility] Start: 02-10-2025 End: 02-10-[address] Jeremiah Martínez MD [facility] Work Phone: Start: 02-10-2025 End: 02-10-2025 Patient encounter procedure nAa Gilman [employer]ILLER-C -Pulmonary Services/Neurology Work Phone: Start: 02-10-2025 End: 02-10-2025 ambulatory [facility] Facility:[facility] Start: 02-03-2025 ambulatory Ana Gilman [employer] INS[employer]ANCE BILLER Fac ility:[facility] Start: 02-03-2025 End: 02-03-2025 Telephone encounter Jennifer Lebron RN [facility] [place] Start: 01-18-2025 End: 01-18-2025 Telephone encounter Jennifer Lebron RN [facility] [place] Comment on above: 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 Start: 12-19-2024 End: 12-19-[address] Jeremiah Martínez MD [facility] Work Phone: Start: 12-19-2024 End: 12-19-2024 Patient encounter procedure Ana Gilman NP-C -Radiology, [facility] Work Phone: Start: 12-19-2024 End: 12-19-2024 ambulatory Jeremiah Martínez Facility:[facility] Start: 12-08-2024 End: 12-08-2024 Subsequent hospital visit by physician Sergio Meneses MD Work Phone: [facility] CT Comment on above: Other acute recurren t sinusitis Dizziness and giddin ess Start: 12-08-2024 End: 12-08-2024 [facility] Start: 11-08-2024 End: 11-08-2024 Patient encounter procedure Ana Gilman NP-C -[facility] Work Phone: Start: 11-08-2024 End: 11-08-2024 ambulatory Jeremiah Martínez Facility:[facility] Start: 11-04-2024 End: 11-04-2024 ambulatory [facility]EMIAH [facility] Start: 11-04-2024 End: 02-03-2025 Subsequent hospital visit by physician Jeremiah Martínez MD Work Phone: [facility] Radiology Comment on above: Pneumothorax, unspec ified; Fracture of one rib, unspecified side, initial encounter for closed fracture Pneumothorax, unspec ified (Primary Dx); Fracture of one rib, unspecified side, initial encounter for closed fracture Start: 10-26-2024 ambulatory Jeremiah Tomlin y:[facility] Start: 10-18-2024 End: 10-18-2024 Patient encounter procedure Ana Gilman [employer] INS[employer]ANCE BILLER-C -[facility] Start: 10-18-2024 End: 10-18-2024 ambulatory Ana Gilman [employer]ANCE BILLER Facility:[facility] Start: 10-14-2024 End: 10-14-2024 Emergency department patient visit Harpal Cuevas MD Work Phone: [facility] ED Comment on above: Inflammatory disorde r of upper respiratory tract (Primary Dx) Start: 09-30-2024 End: 09-30-2024 Patient encounter procedure Ana Gilman NP-C -[facility] Work Phone: Start: 09-30-2024 End: 09-30-2024 ambulatory Ana Gilman NP Facility:[facility] Start: 09-23-2024 Non-patient / Non-visit Dr. Vanessa rodrigues MD -[facility] Start: 09-23-2024 ambulatory Vanessa Chowdhury Facility:[facility] Start: 09-23-2024 End: 09-23-2024 Patient encounter procedure Ana Gilman [employer] INSURANCE BILLER-C -Cat Scan, [facility] Work Phone: Start: 09-23-2024 End: 09-23-2024 ambulatory Ana Gilman [employer]ANCE BILLER Facility:[facility] Start: 08-30-2024 End: 08-30-2024 Patient encounter procedure Ana Gilman NP-C -[facility] Work Phone: Start: 08-30-2024 End: 08-30-2024 ambulatory Ana Gilman [employer] INS[employer]ANCE BILLER Facility:[facility] Start: 07-08-2024 ambulatory Ana Gilman [employer] INS[employer]ANCE BILLER Fac ility:[facility] Start: 07-04-2024 End: 07-04-2024 ambulatory Ana Gilman [employer]ANCE BILLER Facility:[facility] Start: 06-21-2024 End: 09-20-2024 Transcribe Orders Jeremiah Martínez MD Work Phone: [facility] Central Scheduling Comment on above: Shortness of breath (Primary Dx); Weakness Start: 06-07-2024 End: 06-07-2024 ambulatory Ana Gilman [employer] INS[employer]ANCE BILLER Facility:[facility] Start: 05-23-2024 End: 08-22-2024 Subsequent hospital visit by physician Jeremiah Martínez MD Work Phone: [facility] Radiology Comment on above: Otitis media, unspec ified, left ear Otitis media, unspec ified, left ear (Primary Dx) Start: 05-23-2024 End: 05-23-2024 ambulatory [facility] Start: 05-13-2024 End: 05-13-2024 Subsequent hospital visit by physician Jeremiah Martínez MD Work Phone: [facility] MRI Comment on above: Abnormal results of function studies of other organs and systems Start: 05-13-2024 End: 05-13-2024 ambulatory [facility] Start: 05-05-2024 End: 08-04-2024 Transcribe Orders Jeremiah Martínez MD Work Phone: [facility] Central Scheduling Comment on above: Abnormal results of function studies of other organs and systems (Primary Dx) Start: 03-25-2024 End: 03-25-2024 ambulatory Ana Gilman [employer] INSURANCE BILLER Facility:[facility] Start: 03-15-2024 Refill Ellen Barakat PA-C Work Phone: [facility] [place] Comment on above: Refill Request Start: 03-07-2024 End: 03-07-2024 ambulatory Ana Gilman [employer] INSURANCE BILLER Facility:[facility] Start: 01-21-2024 End: 01-21-2024 Office outpatient new 30 minutes Nery Ruiz MD Work Phone: [facility] ENT Comment on above: Chronic pansinusitis (Primary Dx) Start: 01-13-2024 Telephone encounter Jeremiah jane MD Work Phone: [facility] Clinical Communication Comment on above: OTher (Inform Provid er ) Start: 12-29-2023 Telephone encounter Jeremiah jane MD Work Phone: [employer] Clinical Communication Start: 12-22-2023 End: 12-22-[address] Jeremiah Martínez Work Phone: [facility] Work Phone: Start: 12-22-2023 End: 12-22-[address] Jeremiah Martínez Work Phone: [facility] Start: 12-12-2023 Refill Ellen Barakat PA-C Work Phone: [facility] [place] Comment on above: Refill Request Start: 12-07-2023 End: 12-07-[address] Jeremiah Martínez Work Phone: [facility] Pulmonary Medicine Work Phone: Start: 11-24-2023 End: 02-23-2024 Subsequent hospital visit by physician Jeremiah Martínez MD Work Phone: [facility] Radiology Comment on above: Pain in right knee Pain in right knee ( Primary Dx) Start: 11-23-2023 End: 11-23-2023 Subsequent hospital visit by physician Jeremiah Martínez MD Work Phone: [facility] Radiology Comment on above: Chronic sinusitis, u nspecified Chronic sinusitis, u nspecified (Primary Dx) Start: 11-20-2023 End: 11-20-2023 ambulatory [facility] Work Phone: Start: 11-20-2023 End: 11-20-2023 Patient encounter procedure [facility]-Cat Scan, [facility] Work Phone: Start: 11-09-2023 End: 11-09-2023 Subsequent hospital visit by physician Jeremiah Martínez MD Work Phone: [facility] MRI Comment on above: Chronic sinusitis, u nspecified Start: 11-06-2023 Transcribe Orders Jeremiah clemens MD Work Phone: [facility] Central Scheduling Comment on above: Chronic sinusitis, u nspecified (Primary Dx) Start: 10-23-2023 End: 10-23-2023 ambulatory [facility] Work Phone: Start: 10-23-2023 End: 10-23-2023 Patient encounter procedure [facility]-Laboratory Work Phone: Start: 09-11-2023 ambulatory Purnima Crane Cl inical Communication Start: 09-11-2023 Patient encounter procedure Purnima Santos RN [facility] Clinical Communication Start: 07-05-2023 Refill Ellen [facility]akat PA-C [facility] Comment on above: Refill Request Start: 07-02-2023 End: 07-02-2023 Subsequent hospital visit by physician Jeremiah Martínez MD Work Phone: [facility] Non-Invasive Cardiology Comment on above: Canceled (Patient: R efused) Start: 06-29-2023 Telephone encounter Jeremiah jane MD Work Phone: [facility] Central Scheduling Comment on above: Scheduling Emphysema, unspecifi ed (HCC) (Primary Dx) Start: 06-24-2023 End: 06-24-2023 Subsequent hospital visit by physician Jeremiah Martínez MD Work Phone: [facility] Radiology Comment on above: Emphysema, unspecifi ed (HCC) Emphysema, unspecifi ed (HCC) (Primary Dx) Start: 06-11-2023 Chart abstracting Jeremiah jane MD Work Phone: [facility] Sleep Disorders Center Comment on above: Polysomnogram Start: 05-18-2023 ambulatory Lupillo Bowen MD Work Phone: Ambulatory Surgery Start: 05-07-2023 ambulatory Rosendo Coon MD Work Phone: Ambulatory Surgery Start: 04-16-2023 End: 04-16-2023 Patient encounter procedure Ellen Barakat PA-C Work Phone[facility] Comment on above: Altered bowel habits (Primary Dx); Postprandial epigastric pain; Abnormal weight loss Start: 04-10-2023 End: 04-10-2023 Subsequent hospital visit by physician [facility] Us Exam Room 1 [facility] US Comment on above: Canceled (Patient: E mergency) Start: 04-07-2023 Transcribe Orders Jeremiah haywood MD Work Phone: [facility] Central Scheduling Start: 03-18-2023 End: 03-18-2023 Subsequent hospital visit by physician Jeremiah Martínez MD Work Phone: [facility] Radiology Comment on above: Localized swelling, mass and lump, left lower limb Localized swelling, mass and lump, left lower limb (Primary Dx) Start: 12-16-2022 End: 12-16-2022 Subsequent hospital visit by physician Phillip Tobar MD Work Phone: [facility] Rad Comment on above: Acute pain of right knee Start: 12-16-2022 End: 12-16-2022 Office outpatient new 30 minutes Phillip Tobar MD Work Phone: [facility] Orthopedic & Sports Medicine Comment on above: Acute pain of right knee (Primary Dx); Quadriceps weakness; Tendinopathy of right gluteus medius Start: 11-27-2022 Transcribe Orders Jeremiah clemens MD Work Phone: [facility] Laboratory Comment on above: Hypoxemia (Primary D x) Start: 10-28-2022 End: 10-28-2022 ambulatory [facility] Work Phone: Start: 10-28-2022 End: 10-28-2022 Patient encounter procedure [facility]-Cat Scan, [facility] Start: 06-11-[address] [facility] Start: 05-29-2022 ambulatory Lizzie Ferrari RN NURSE O N CALL Comment on above: Shoulder Injury Start: 12-01-2021 End: 12-01-2021 Emergency department patient visit Jeremiah [facility] Start: 12-01-2021 End: 12-01-2021 Emergency department patient visit Anna Ibarra MD Work Phone: [facility] Comment on above: Right wrist fracture , closed, initial encounter (Primary Dx) Start: 09-20-2021 ambulatory UNKNOWN PROVIDER [facility] Start: 09-13-2021 ambulatory UNKNOWN PROVIDER [facility] Start: 07-12-2021 ambulatory Jeremiah Martínez [facility] Start: 07-12-2021 End: 07-12-2021 Subsequent hospital visit by physician Jeremiah Martínez MD Work Phone: [facility] Start: 01-18-2021 End: 01-18-2021 Emergency department patient visit Anna Herrera MD Work Phone: [facility] ED Comment on above: Injury of head, init ial encounter (Primary Dx); Fall, initial encounter; Laceration of scalp, initial encounter; Acute alcoholic intoxication without complication (HCC) Start: 10-04-2020 End: 10-04-2020 Subsequent hospital visit by physician Jeremiah Martínez Work Phone: [facility] Start: 09-14-2020 End: 09-14-2020 Subsequent hospital visit by physician Annie Cohen Cat Scan Rm [address] Comment on above: Arrived Start: 08-17-2020 End: 08-17-2020 Subsequent hospital visit by physician Jeremiah Martínez Work Phone: [facility] Start: 06-24-2020 End: 06-24-2020 Emergency department patient visit Jhonatan T Panda Work Phone: [facility] [place] [facility] Comment on above: Injury of head, init ial encounter (Primary Dx); Closed fracture of nasal bone, initial encounter; Strain of neck muscle, initial encounter Start: 11-08-2019 End: 11-08-2019 Subsequent hospital visit by physician Jeremiah Martínez Work Phone: [facility] Start: 2019 End: 2019 Subsequent hospital visit by physician Nilesh Garces Work Phone: [facility] Comment on above: Closed displaced int ertrochanteric fracture of right femur with routine healing; Right hip pain Start: 06-22-2019 End: 06-22-2019 Subsequent hospital visit by physician Nilesh Garces Work Phone: [facility] Start: 06-11-2019 End: 06-14-2019 Evaluation and management of inpatient Anna Moy Work Phone: [facility] MED SURG Comment on above: Closed 2-part intert rochanteric fracture of right femur, initial encounter ([facility]) (Primary Dx); Right hip pain; Fall from ground level; Abnormal nuclear stress test; Closed 2-part intertrochanteric fracture of proximal end of right femur, initial encounter ([facility]) Start: 05-23-2019 End: 05-23-2019 Subsequent hospital visit by physician Jeremiah Martínez Work Phone: [facility] Comment on above: Arrived Start: 05-16-2019 End: 05-16-2019 Subsequent hospital visit by physician Jeremiah Martínez Work Phone: [employer] [facility] Comment on above: Arrived Start: 05-03-2019 End: 05-03-2019 Subsequent hospital visit by physician Jreemiah Martínez Work Phone: [facility] Procedures Date Procedure Procedure Detail Performing Clinician Start: 03-03-2025 Radex shoulder compl ete minimum 2 views Jeremiah Martínez MD Work Phone: Start: 02-10-2025 SARS-CoV-2, Influenz a & RSV (PCR) Dr. Jeremiah Martínez MD Start: 02-10-[address] Jeremiah Martínez MD Start: 02-10-[address] Fatou Martínez MD Comment on above: The atypical pANCA p attern has been observed in asignificant percentage of patients with ulcerative colitis,primary sclerosing cholangitis and autoimmune hepatitis. Start: 02-10-[address] Jeremiah Martínez MD Start: 02-10-2025 House dust mite (Df) RAST Dr. Jeremiah Martínez MD Start: 02-10-2025 Mouse urine proteins RAST Dr. Jeremiah Martínez MD Comment on above: Performed at: [address] [id number] Director: Rik Lynn MD, Phone: [phone] Start: 02-10-2025 Plantain (Dutch) RAST Dr. Jeremiah Martínez MD Start: 12-19-2024 X-ray of chest, PA a [...] 09-14-2020 Ct maxillofacial w/o contrast material Gavintee Hayessuzystephan Work Phone: Start: 08-17-2020 Radiologic exam ches t 2 views Jeremiah Martínez Work Phone: Start: 06-24-2020 Ct cervical spine w/ o contrast material Jhonatan Aguirre [employer] Work Phone: Start: 06-24-2020 Ct head/brain w/o co ntrast material Jhonatan Aguirre [employer] Work Phone: Start: 06-24-2020 Ct maxillofacial w/o contrast material Jhonatan Aguirre [employer] Work Phone: Start: 11-08-2019 Radex clavicle complete [...] Start: 06-13-2019 Blood count complete automated Willian Lalo Work Phone: Start: 06-12-2019 Blood count complete auto&auto difrntl wbc Willian Lalo Work Phone: Start: 06-11-2019 OPERATIVE REPORT 3m Sca nning Start: 06-11-2019 Radiologic examinati on femur minimum 2 views Anna Moy Work Phone: Start: 06-11-2019 Blood typing serologic abo Charlene Lindsey Work Phone: Start: 06-11-2019 Chest x-ray 1 view frontal Charlene Lindsey Work Phone: Start: 06-11-2019 Assay of troponin quantitative Anna Moy Work Phone: Start: 06-11-2019 Blood count complete auto&auto difrntl wbc Anna Moy Work Phone: Start: 06-11-2019 Comprehensive metabo lic panel Anna Moy Work Phone: Start: 06-11-2019 Prothrombin time Anna Moy Work Phone: Start: 06-11-2019 Thromboplastin time partial plasma/whole blood Anna Sharmah Work Phone: Start: 06-11-2019 Ecg routine ecg w/le ast 12 lds w/i&r Anna Sharmah Work Phone: Start: 06-11-2019 Radex hip unilateral with pelvis 2-3 views Anna Moy Work Phone: Start: 05-23-2019 Myocardial spect mul tiple studies Jeremiah Martínez Work Phone: Plan of Treatment Date Care Activity Detail Author Start: 2032 RSV Vaccine (1 - 1-dose 75+ series) RSV Vaccine (1 - 1-dose 75+ series) [facility] Start: 12-31-2027 Diabetes Screening Diabetes Screening [facility] Start: 12-30-2025 Diabetes: Estimated Glomerular Filtration Rate for [facility] Diabetes: Estimated Glomerular Filtration Rate for [facility] Start: 10-14-2025 Diabetes: Estimated Glomerular Filtration Rate for [facility] Diabetes: Estimated Glomerular Filtration Rate for [facility] Start: 05-08-2025 Influenza vaccination Influenza Vaccine (Season Ended) [facility] Start: 03-16-2025 ambulatory Ambulatory Facility:[facility] Start: 03-16-2025 End: 03-16-2025 Admission to same day surgery center 03/16/2025 10:00 AM EDT - 03/16/2025 11:53 [place] [address] Gopi Bess MD [address] [place] [address] NON-SELECTIVE CATH PLACEMENT THORACIC AORTA W/ ANGIOGRAPHY OF THE EXTRACRANIAL CAROTID VERTEBRAL AND/OR INTRACRANIAL VESSELS UNILATERAL W/ ANGIOGRAPHY OF THE CERVICOCEREBRAL ARCH [facility] Comment on above: NON-SELECTIVE CATH PLACEMENT THORACIC AO RTA W/ ANGIOGRAPHY OF THE EXTRACRANIAL CAROTID VERTEBRAL AND/OR INTRACRANIAL VESSELS UNILATERAL W/ ANGIOGRAPHY OF THE CERVICOCEREBRAL ARCH Start: 03-16-2025 End: 03-16-2025 Nonsl[address] cath thor aorta angio intr/xtrcranl art NON-SELECTIVE CATH PLACEMENT THORACIC AORTA W/ ANGIOGRAPHY OF THE EXTRACRANIAL CAROTID VERTEBRAL AND/OR INTRACRANIAL VESSELS UNILATERAL W/ ANGIOGRAPHY OF THE CERVICOCEREBRAL ARCH Cerebral aneurysm, nonruptured (HCC) 03/16/2025 10:00 AM EDT [facility] Start: 03-16-2025 Subsequent hospital visit by physician 03/16/2025 10:00 AM EDT Hospital Encounter [facility] [address] Gopi Bess MD [address] [place] [address] Cerebral aneurysm, nonruptured (HCC) [I67.1] [facility] Comment on above: Cerebral aneurysm, nonruptured (HCC) [I6 7.1] Start: 03-07-2025 ambulatory Ambulatory Facility:[facility] Start: 02-17-2025 End: 02-17-2025 Admission to same day surgery center 02/17/2025 11:05 AM EDT - 02/17/2025 12:58 PM EDT [place] [address] Gopi Bess MD [address] [place] [address] NON-SELECTIVE CATH PLACEMENT THORACIC AORTA W/ ANGIOGRAPHY OF THE EXTRACRANIAL CAROTID VERTEBRAL AND/OR INTRACRANIAL VESSELS UNILATERAL W/ ANGIOGRAPHY OF THE CERVICOCEREBRAL ARCH [facility] Comment on above: NON-SELECTIVE CATH PLACEMENT [...] aneurysm, nonruptured (HCC) 02/17/2025 11:05 AM EDT [facility] Start: 02-17-2025 Subsequent hospital visit by physician 02/17/2025 11:05 AM EDT Hospital Encounter [facility] [address] Gopi Bess MD [address] [place] [address] Cerebral aneurysm, nonruptured (HCC) [I67.1] [facility] Comment on above: Cerebral aneurysm, nonruptured (HCC) [I6 7.1] Start: 02-17-2025 Measurement of respiratory function [facility] Start: 02-03-2025 Polysomnography [facility] Start: 01-19-2025 End: 01-19-2025 Admission to same day surgery center 01/19/2025 10:57 AM EDT - 01/19/2025 12:50 PM EDT Surgery [place] [address] Gopi Bess MD [address] [place] [address] NON-SELECTIVE CATH PLACEMENT THORACIC AORTA W/ ANGIOGRAPHY OF THE EXTRACRANIAL CAROTID VERTEBRAL AND/OR INTRACRANIAL VESSELS UNILATERAL W/ ANGIOGRAPHY OF THE CERVICOCEREBRAL ARCH [facility] Comment on above: NON-SELECTIVE CATH PLACEMENT [...] aneurysm, nonruptured (HCC) 01/19/2025 10:57 AM EDT [facility] Start: 01-19-2025 Subsequent hospital visit by physician 01/19/2025 10:57 AM EDT Hospital Encounter [facility] [address] Gopi Bess MD [address] [place] [address] Cerebral aneurysm, nonruptured (HCC) [I67.1] [facility] Comment on above: Cerebral aneurysm, nonruptured (HCC) [I6 7.1] Start: 12-26-2024 Polysomnography [facility] Start: 12-21-2024 Measurement of respiratory function [facility] Start: 10-06-2024 End: 10-06-2024 Patient encounter procedure 10/06/2024 9:15 AM EST Office Visit [facility] [address] [place] [phone] Nery Ruiz MD [address] [place] [address] [facility] Start: 09-07-2024 Advance Directive Discussion Advance Directive Discussion [facility] Start: 09-07-2024 Medicare Advantage Annual Wellness Visit Medicare Advantage Annual Wellness Visit [facility] Start: 06-21-2024 End: 06-21-2026 Stress echocardiogram (TTE) exercise with contrast, bubble, strain, and 3D PRN Stress echocardiogram (TTE) exercise with contrast, bubble, strain, and 3D PRN CV Stress Echocardiography Routine Shortness of breath Expected: 06/21/2024 (Approximate), Expires: 06/21/2026 [facility] Work Phone: Comment on above: Expected: 06/21/2024 (Approximate), Expi res: 06/21/2026 Start: 05-08-2024 COVID-19 Vaccine () COVID-19 Vaccine () [facility] Start: 05-08-2024 COVID-19 Vaccine () COVID-19 Vaccine ( season) [facility] Start: 05-08-2024 Influenza vaccination [facility] Start: 03-24-2024 End: 03-24-2024 Patient encounter procedure 03/24/2024 9:30 AM EDT Office Visit [facility] [address] [place] [phone] Nery Ruiz MD [address] [place], [place] [id number] [facility] Start: 01-21-2024 End: 01-21-2024 Patient encounter procedure 01/21/2024 9:30 AM EDT Office Visit [facility] [address] [place] [address] Nery Ruiz MD [address] [place], [place] [id number] [facility] Start: 12-02-2023 End: 12-02-2023 Patient encounter procedure 12/02/2023 11:00 AM EDT Office Visit [facility] [address] [place] [phone] Ana Schneider, [address] [place], [place] [address] [facility] Start: 11-23-2023 End: 11-22-2024 XR Ankle - right 3 Views [facility] Comment on above: Once for 1 Occurrences starting 11/23/19 until 11/23/2023 Expected: 11/23/2023 , Expires: 11/22/2024 Start: 11-23-2023 End: 11-22-2024 XR Knee - right 3 Views [facility] Work Phone: Comment on above: Once for 1 Occurrences starting 11/23/19 until 11/23/2023 Expected: 11/23/2023 , Expires: 11/22/2024 Start: 09-21-2023 End: 09-21-2023 Patient encounter procedure 09/21/2023 9:00 AM EST Office Visit [facility] [address] [place] [address] Charlene Perla PA-C [address] [place] [address] [facility] Start: 09-07-2023 Advance Directive Discussion Advance Directive Discussion [facility] Start: 09-07-2023 Behavioral Health Screening Behavioral Health Screening [facility] Start: 09-07-2023 Medicare Advantage Annual Wellness Visit Medicare Advantage Annual Wellness Visit [facility] Start: 07-02-2023 End: 07-02-2023 Patient encounter procedure 07/02/2023 9:00 AM EDT Appointment [facility] Non-Invasive Cardiology [address] [place] [phone] [facility] Non-Invasive Cardiology Start: 06-29-2023 End: 06-29-2025 Stress echocardiogram (TTE) exercise with contrast, bubble, strain, and 3D PRN Stress echocardiogram (TTE) exercise with contrast, bubble, strain, and 3D PRN CV Stress Echocardiography Routine Emphysema, unspecified (HCC) Expected: 06/29/2023 (Approximate), Expires: 06/29/[address] [facility] Work Phone: Comment on above: Expected: 06/29/2023 (Approximate), Expi res: 06/29/2025 Start: 06-11-2023 End: 06-11-2023 Patient encounter procedure 06/11/2023 2:15 PM EDT Office Visit [facility] [address] [place] [phone] Kush Miller DO [address] [place] [address] [facility] Start: 06-11-2023 Diabetes: Estimated Glomerular Filtration Rate for Kidney Health Diabetes: Estimated Glomerular Filtration Rate for Kidney Health [facility] Start: 05-08-2023 COVID-19 Vaccine ( season) COVID-19 Vaccine (1 - 2023-24 season) [facility] Start: 05-08-2023 Influenza vaccination [facility] Start: 09-07-2022 ADVANCE DIRECTIVE DISCUSSION ADVANCE DIRECTIVE DISCUSSION [facility] Start: 09-07-2022 DEPRESSION ASSESSMENT DEPRESSION ASSESSMENT [facility] Start: 2022 BONE DENSITY BONE DENSITY [facility] Start: 2022 Bone Density Screening Bone Density Screening [facility] Start: 2022 Screening for osteoporosis Bone Density Screening [facility] Start: 05-08-2022 Influenza vaccination INFLUENZA (#1) [facility] Start: 05-08-2021 Influenza vaccination [facility] Start: 05-08-2020 Influenza vaccination Flu vaccine (#1) [place] Start: 08-24-2019 End: 08-24-2019 Office Visit 08/24/2019 Office Visit Orthopedic Surgery Nilesh Garces MD [address] [place] [address] [address] [place] [address] [phone] [facility] [place] Start: 2019 End: 2019 Nurse Only [facility] [place] Start: 07-09-[address] lung screening Low dose CT lung screening [place], [place] Start: 07-09-2019 Screening for malignant neoplasm of lung Low dose CT lung screening [facility] Start: 05-17-2019 End: 05-17-2019 Appointment 05/17/2019 Appointment Radiology Jeremiah Martínez MD [address] [place] [address] [phone] [facility] Start: 05-08-2019 Influenza vaccination Flu vaccine (#1) [place], [place] Start: 2017 Hepatitis B Vaccines (1 of 3 - Risk 3-dose series) Hepatitis B Vaccines (1 of 3 - Risk 3-dose series) [facility] Start: 2017 RSV Immunization aged 60 or older (1 - 1-dose 60+ series) RSV Immunization aged 60 or older (1 - 1-dose 60+ series) [facility] Start: 2017 RSV Immunization for Adults (1 - Risk 60-74 years 1-dose series) RSV Immunization for Adults (1 - Risk 60-74 years 1-dose series) [facility] Start: 2017 RSV Vaccine (1 - 1-dose 60+ series) RSV Vaccine (1 - 1-dose 60+ series) [facility] Start: 2007 Breast cancer screen Breast cancer screen [place], [place] Start: 2007 Colon cancer screen colonoscopy Colon cancer screen colonoscopy [place] Start: 2007 Screening for malignant neoplasm of breast Breast cancer screen [facility] Start: 2007 Screening for malignant neoplasm of colon Colon cancer screen colonoscopy [place] Start: 2007 Shingles Vaccine (1 of 2) Shingles Vaccine (1 of 2) [facility] Start: 2007 SHINGRIX VACCINE (1 of 2) SHINGRIX VACCINE (1 of 2) [facility] Start: 2007 Zoster Vaccines (1 of 2) Zoster Vaccines (1 of 2) [facility] Start: 2002 COLOGUARD (FIT-DNA) COLOGUARD (FIT-DNA) [facility] Start: 2002 Colonoscopy COLONOSCOPY [facility] Start: 2002 COLORECTAL CANCER SCREENING COLORECTAL CANCER SCREENING [facility] Start: [address] COLONOGRAPHY [facility] Start: 2002 DIABETES SCREEN DIABETES SCREEN [facility] Start: 2002 Diabetes Screening Diabetes Screening [facility] Start: 2002 FECAL OCCULT BLOOD FECAL OCCULT BLOOD [facility] Start: 2002 Lipid 1996 panel - Serum or Plasma Lipid Screening [facility] Start: 2002 Lipid panel Lipid Screening [facility] Start: 2002 LIPID SCREEN LIPID SCREEN [facility] Start: 2002 Screening for malignant neoplasm of colon [facility] Start: 2002 SIGMOIDOSCOPY SIGMOIDOSCOPY [facility] Start: 1997 Diabetes screen Diabetes screen [place], [place] Start: 1997 Lipid panel Lipid screen [facility] Start: 1997 Lipid screen Lipid screen [place] Start: 1997 Mammography [facility] Start: 1997 Screening for malignant neoplasm of breast [facility] Start: 1992 Diabetes screen Diabetes screen [facility] Start: 1987 HPV TESTING HPV TESTING [facility] Start: 1987 Screening for malignant neoplasm of cervix [facility] Start: 1978 Cervical cancer screen Cervical cancer screen [place] Start: 1978 PAP TESTING PAP TESTING [facility] Start: 1978 Screening for malignant neoplasm of cervix [facility] Start: 1976 DTaP/Tdap/Td vaccine (1 - Tdap) DTaP/Tdap/Td vaccine (1 - Tdap) [facility] Start: 1976 DTaP/Tdap/Td Vaccines (1 - Tdap) DTaP/Tdap/Td Vaccines (1 - Tdap) [facility] Start: 1976 Pneumococcal Vaccine: 50+ (1 of 2 - PCV) Pneumococcal Vaccine: 50+ (1 of 2 - PCV) [facility] Start: 1976 Pneumococcal Vaccine: 50+ Years (1 of 2 - PCV) Pneumococcal Vaccine: 50+ Years (1 of 2 - PCV) [facility] Start: 1976 Urine microalbumin profile [facility] Start: 1976 Urine screening for protein Diabetes: Urine Protein Screening [facility] Start: 1975 Anxiety Screening Anxiety Screening [facility] Start: 1975 Depression Screening Depression Screening [facility] Start: 1975 Diabetes: Urine Albumin-Creatinine Ratio for Kidney Health Diabetes: Urine Albumin-Creatinine Ratio for Kidney Health [facility] Start: 1975 HEPATITIS C SCREENING HEPATITIS C SCREENING [facility] Start: 1975 Hepatitis C screening Hepatitis C Screening [facility] Start: 1975 HIV SCREENING HIV SCREENING [facility] Start: 1972 HIV screen HIV screen [place] Start: 1972 HIV screening HIV screen [facility] Start: 1969 Adult depression screening assessment DEPRESSION SCREENING [facility] Start: 1969 COVID-19 Vaccine (1) COVID-19 Vaccine (1) [facility] Work Phone: Start: 1969 Depression Monitoring Depression Monitoring [facility] Start: 1968 DTaP/Tdap/Td vaccine (1 - Tdap) DTaP/Tdap/Td vaccine (1 - Tdap) [place] Start: 1967 Diabetic foot examination Diabetes: Foot Exam [facility] Start: 1967 Glaucoma screening Diabetes: Retinopathy Screening [facility] Start: 1967 Preventive dental service Diabetes: Dental Exam [facility] Start: 1963 Pneumococcal 0-64 years Vaccine (1 of 1 - PPSV23) Pneumococcal 0-64 years Vaccine (1 of 1 - PPSV23) [place] Start: 1963 Pneumococcal 0-64 years Vaccine (1 of 2 - PPSV23) Pneumococcal 0-64 years Vaccine (1 of 2 - PPSV23) [facility] Start: 1963 Pneumococcal Vaccine: 65+ (1 - PCV) Pneumococcal Vaccine: 65+ (1 - PCV) [facility] Start: 1963 Pneumococcal Vaccine: 65+ (1 of 2 - PCV) Pneumococcal Vaccine: 65+ (1 of 2 - PCV) [facility] Start: 1963 Pneumococcal Vaccine: 65+ Years (1 - PCV) Pneumococcal Vaccine: 65+ Years (1 - PCV) [facility] Start: 1963 Pneumococcal Vaccine: 65+ Years (1 of 2 - PCV) Pneumococcal Vaccine: 65+ Years (1 of 2 - PCV) [facility] Start: 1963 PNEUMOCOCCAL: 65+ (1 - PCV) PNEUMOCOCCAL: 65+ (1 - PCV) [facility] Start: 1962 COVID-19 Vaccine (1) COVID-19 Vaccine (1) [facility] Start: 01-17-1958 COVID-19 VACCINE (#1) COVID-19 VACCINE (#1) [facility] Start: 1957 Annual wellness visit Medicare Initial Physical (IPPE) [facility] Start: 1957 Hemoglobin A1c measurement Diabetes: Hemoglobin A1C [facility] Start: 1957 Hepatitis B Vaccines (1 of 3 - 3-dose series) Hepatitis B Vaccines (1 of 3 - 3-dose series) [facility] Start: 1957 Hepatitis C screen Hepatitis C screen [place], [place] Start: 1957 Hepatitis C screening Hepatitis C screen [facility] Start: 1957 Lipid panel Lipid Panel [facility] Start: 1957 Medicare Advantage Annual Wellness Visit (AWV) Medicare Advantage Annual Wellness Visit (AWV) [facility] Start: 1957 Screening for malignant neoplasm of colon [facility] Start: 1957 Screening for osteoporosis Bone Density Scan [facility] End: 05-23-2019 Cardiac Stress Test Exercise - Treadmill Cardiac Stress Test Exercise - Treadmill Cardiac Services Routine One Time for 1 Occurrences starting 05/23/2019 until 05/23/2019 [facility] on above: One Time for 1 Occurrences starting 05/08 until 05/23/2019 CBC W Auto Different ial panel - Blood [facility] End: 04-16-2024 COLONOSCOPY DIAGNOSTIC COLONOSCOPY DIAGNOSTIC Endoscopy Routine Altered bowel habits Abnormal weight loss 1 Occurrences starting 04/16/2023 until 04/16/2024 [facility] Work Phone: Comment on above: 1 Occurrences starting 04/16/2023 until 04/16/2024 CT Chest WO contrast [facility] End: 12-08-2024 CT Maxillofacial region WO contrast [employer] Work Phone: Comment on above: Once for 1 Occurrences starting 12/09/19 until 12/08/2024 End: 04-16-2024 EGD DIAGNOSTIC EGD DIAGNOSTIC Endoscopy Routine Abnormal weight loss Postprandial epigastric pain 1 Occurrences starting 04/16/2023 until 04/16/2024 [facility] Work Phone: Comment on above: 1 Occurrences starting 04/16/2023 until 04/16/2024 End: 06-11-2019 FL LESS THAN 1 HOUR FL LESS THAN 1 HOUR Imaging Routine Once for 1 Occurrences starting 06/11/2019 until 06/11/2019 [facility] Comment on above: Once for 1 Occurrences starting 06/11/20 19 until 06/11/2019 FL LESS THAN 1 HOUR FL LESS THAN 1 HOUR Imaging Routine 06/11/2019 9:15 AM EDT [facility] [Units/volume] i n Serum or Plasma [facility] Initiate Oxygen Ther apy Protocol Initiate Oxygen Therapy Protocol Respiratory Care Routine Daily until discontinued starting 06/11/2019 [facility] Comment on above: Daily until discontinued starting 2018 End: 12-08-2024 MR Brain [facility] Comment on above: Once for 1 Occurrences starting 12/09/19 until 12/08/2024 End: 05-16-2019 Nasal Cannula Oxygen Nasal Cannula Oxygen Respiratory Care Routine As Needed until discontinued starting 05/16/2019 [facility] Comment on above: As Needed until discontinued starting End: 05-23-2019 Nasal Cannula Oxygen Nasal Cannula Oxygen Respiratory Care Routine As Needed until discontinued starting 05/23/2019 [facility] Comment on above: As Needed until discontinued starting OUTSIDE PROCEDURE SCAN OUTSIDE P ROCEDURE SCAN Procedures Ordered: 11/27/2022 [facility] Comment on above: Ordered: 11/27/2022 OUTSIDE PROCEDURE SCAN OUTSIDE P ROCEDURE SCAN Procedures Ordered: 03/18/2023 [facility] Comment on above: Ordered: 03/18/2023 OUTSIDE PROCEDURE SCAN OUTSIDE P ROCEDURE SCAN Procedures Ordered: 04/09/2023 [facility] Comment on above: Ordered: 04/09/2023 OUTSIDE PROCEDURE SCAN OUTSIDE P ROCEDURE SCAN Procedures Ordered: 06/24/2023 [facility] Comment on above: Ordered: 06/24/2023 OUTSIDE PROCEDURE SCAN OUTSIDE P ROCEDURE SCAN Procedures Ordered: 07/01/2023 [facility] Comment on above: Ordered: 07/01/2023 OUTSIDE PROCEDURE SCAN OUTSIDE P ROCEDURE SCAN Procedures Ordered: 11/09/2023 [facility] Comment on above: Ordered: 11/09/2023 OUTSIDE PROCEDURE SCAN OUTSIDE P ROCEDURE SCAN Procedures Ordered: 11/23/2023 [facility] Comment on above: Ordered: 11/23/2023 OUTSIDE PROCEDURE SCAN OUTSIDE P ROCEDURE SCAN Procedures Ordered: 11/24/2023 [facility] Comment on above: Ordered: 11/24/2023 OUTSIDE PROCEDURE SCAN OUTSIDE P ROCEDURE SCAN Procedures Ordered: 05/23/2024 [facility] Comment on above: Ordered: 05/23/2024 OUTSIDE PROCEDURE SCAN OUTSIDE P ROCEDURE SCAN Procedures Ordered: 11/04/2024 [facility] Comment on above: Ordered: 11/04/2024 Positron emission tomography with computed tomography [facility] End: 05-15-2024 US ABD RIGHT UPPER QUADRANT US ABD RIGHT UPPER QUADRANT Radiology Routine Postprandial epigastric pain 1 Occurrences starting 04/16/2023 until 05/15/2024 [facility] Work Phone: Comment on above: 1 Occurrences starting 04/16/2023 until 05/15/2024 End: 11-24-2023 XR Ankle - right 3 Views [facility] Work Phone: Comment on above: Once for 1 Occurrences starting 11/24/19 until 11/24/2023 End: 03-03-2025 XR Cervical spine 2 or 3 Views [facility] [employer] [facility] Work Phone: Comment on above: Once for 1 Occurrences starting 03/03/20 until 03/03/2025 End: 05-03-2019 XR CHEST STANDARD (2 VW) XR CHEST STANDARD (2 VW) Imaging Routine Once for 1 Occurrences starting 05/03/2019 until 05/03/2019 [place] Comment on above: Once for 1 Occurrences starting 05/03/20 until 05/03/2019 XR CHEST STANDARD (2 VW) XR CHES T STANDARD (2 VW) Imaging Routine 05/03/2019 2:00 PM EDT [facility] End: 06-11-2019 XR Femur Right 2 VW XR Femur Right 2 VW Imaging STAT Once for 1 Occurrences starting 06/11/2019 until 06/11/2019 [place] Comment on above: Once for 1 Occurrences starting 06/11/20 until 06/11/2019 End: 03-18-2023 XR Hip - left 3 Views [facility] [employer] Work Phone: Comment on above: Once for 1 Occurrences starting 03/18/20 until 03/18/2023 End: 11-24-2023 XR Knee - right 3 Views [facility] [employer] Comment on above: Once for 1 Occurrences starting 11/24/19 24 until 11/24/2023 End: 07-12-2021 XR KNEE RIGHT (MIN 4 VIEWS) XR KNEE RIGHT (MIN 4 VIEWS) Imaging Routine Once for 1 Occurrences starting 07/12/2021 until 07/12/2021 [facility] Work Phone: Comment on above: Once for 1 Occurrences starting 07/12/20 21 until 07/12/2021 XR KNEE RIGHT (MIN 4 VIEWS) XR KNEE RIGHT (MIN 4 VIEWS) Imaging Routine 07/12/2021 12:46 PM EDT [facility] Work Phone: [facility] Immunizations Immunization Date Immunization Notes Care Provider Orlando wilks 06-03-2015 influenza virus vacc ine, unspecified formulation Jeremiah Martínez MD Work Phone: [facility] Payers Date Payer Category Payer Self-pay [id number] 2022 Medicare (Managed Care) [employer] [id number] 2022 Medicare HMO [employer] MEDICARE [id number] 2022 Private Health Insurance [id number] 2022 Medicare [id number]. [id number] 2021 Medicaid [id number]. [id number] 2020 Private Health Insurance [id number]. [id number] 2018 Medicaid [id number] [id number]. [id number] 2014 Unknown [id number] [id number]. [id number] 2014 Unknown [id number] 1.2.840.323627.1.13.239.2. [id number] 1957 Unknown [id number] 2.840.1.179021.3.579.2. 8 1957 Unknown [id number] 2.840.1.183568.3.579.2. 8 1957 Unknown [id number] 2.840.1.244497.3.579.2. 668 1957 Unknown [id number] .840.1.249895.3.579.2. 668 1957 Unknown [id number] 2.840.1.371248.3.579.2. 668 Medicare MEDICARE PART A B [id number] Private Health Insurance Unknown [facility] [id number] Unknown [id number] 2.16840.1.923443.3.579.2. 462 Unknown [id number] 2.16840.1.433649.3.579.2. 462 Unknown [id number] 2.16840.1.928292.3.579.2. 462 Unknown [id number] 2.16.840.1.177053.3.579.2. 462 Unknown [id number] 2.16.840.1.042443.3.579.2. 462 Unknown [id number] 2.16.840.1.482738.3.579.2. 462 Unknown [id number] 2.16.840.1.907255.3.579.2. 462 Unknown [id number] 2.16.840.1.864112.3.579.2. 462 Unknown [id number] 2.16.840.1.266476.3.579.2. 462 Unknown [id number] 2.16.840.1.885267.3.579.2. 462 Unknown [id number] 2.16.840.1.536361.3.579.2. 462 Unknown [id number] 2.16.840.1.228627.3.579.2. 462 Unknown [id number] 2.16.840.1.375554.3.579.2. 462 Unknown [id number] 2.16.840.1.012528.3.579.2. 462 Unknown [id number] 2.16.840.1.855969.3.579.2. 462 Unknown [id number] 2.16.840.1.021335.3.579.2. 462 Unknown [id number] 2.16.840.1.545600.3.579.2. 462 Unknown [id number] 2.16.840.1.116717.3.579.2. 462 Social History Date Type Detail Facility Start: 05-16-2019 End: 12-30-2023 Tobacco smoking status NJIS Current every day smoker [facility] Start: 05-16-2019 End: 10-14-2024 Alcohol intake Yes [place], [place] Start: 02-28-2016 Alcohol Comment occ [place], [place] Start: 1955 Sex Assigned At Not on file [place] Start: 05-23-2019 End: 10-14-2024 Cigarettes smoked current (pack per day) - [facility] Start: 2019 End: 10-14-2024 Alcohol intake Current drinker of alcohol (finding) [facility] Start: 06-24-2020 End: 01-02-2025 Tobacco use and exposure [facility] Start: 06-24-2020 Alcohol Comment frequently [place] [place] Start: 11-21-2021 End: 03-18-2023 Exposure to SARS-CoV-2 (event) Not sure [place], [place] History of tobacco use Cigarette Smoker [facility] Start: 04-15-2006 Alcohol intake Not Asked [facility] Start: 11-04-2021 End: 12-07-2023 Tobacco smoking status NHIS Unknown if ever smoked [facility] Start: 10-30-2020 Occasional [facility] Start: 10-30-2020 None [facility] Start: 10-30-2020 Spouse/ Signif icant Other [facility] Start: 10-30-2020 Cigarettes [facility] Start: 1955 Sex Assigned At Female W [facility] National Score (1-10 0), lower number is lower risk 78 [facility] Start: 04-07-2022 End: 12-22-2024 Sex Female (finding) [...] FDA Start: 10-30-2020 Clinical Notes 05-29-2022 to 03-04-2025 Telephone Encounter - Imelda Jackson RN - 03/04/2025 6:03 AM EDTTelephone Encounter - Imelda Jackson RN - 03/04/2025 6:03 AM EDTTelephone Encounter - Rose Mary Aquino RN - 02/13/2025 12:13 PM EDT Note Date & Type Note Facility 03-04-2025 Telephone encounter Note S: Patient spoke with [facility] nurse regarding low potassium from October lab work. B: Onset of symptoms/concern: labs completed in October. A: Patient states she was looking at her xray results in [facility] and she saw a low potassium, it was 2.3 on 10/14/24. States she hasn't been feeling well and wonders why the doctor did not discuss her low potassium level, last seen in the office on 02/23/25 with her concerns. R: Checked labs in [place] and reviewed [facility]. Discussed she was in the ER on 10/14/24, she had two labs drawn, one at 10:03AM with abnormal potassium and the 2nd one at 11:08AM with normal potassium. Reviewed she also had potassium drawn on 12/30/24 and potassium was normal. Patient verbalizes understanding and seemed relieved. No further needs at this time. Patient instructed to call back with new or worsening symptoms or any further questions or concerns. Reason for Disposition Health information question, no triage required and triager able to answer question Protocols used: Information Only Call - No [id number] [facility] 03-04-2025 Miscellaneous Notes S: Patient spoke with [facility] nurse regarding low potassium from October lab work. B: Onset of symptoms/concern: labs completed in October. A: Patient states she was looking at her xray results in [facility] and she saw a low potassium, it was 2.3 on 10/14/24. States she hasn't been feeling well and wonders why the doctor did not discuss her low potassium level, last seen in the office on 02/23/25 with her concerns. R: Checked labs in [place] and reviewed [facility]. Discussed she was in the ER on 10/14/24, she had two labs drawn, one at 10:03AM with abnormal potassium and the 2nd one at 11:08AM with normal potassium. Reviewed she also had potassium drawn on 12/30/24 and potassium was normal. Patient verbalizes understanding and seemed relieved. No further needs at this time. Patient instructed to call back with new or worsening symptoms or any further questions or concerns. Reason for Disposition Health information question, no triage required and triager able to answer question Protocols used: Information Only Call - No [id number] documented in this encounter [facility] 02-13-2025 Telephone encounter Note Summary: Rescheduled Diagnostic Cerebral Angiogram with Dr. Bess Patient contacted scheduling office needing to reschedule procedure from 02/17/2025 to 03/16/2025. Message was forwarded to Anuja CASTELLON. I contacted patient to notify her that procedure has been rescheduled. Pre-procedure instructions were reviewed and reinforced. Patient verbalizes understanding. Patient provided with arrival time of 0900 day of procedure on 03/16/2025. Patient also provided [phone] contact number should any questions arise. [facility] 02-13-2025 Miscellaneous Notes Summary: Rescheduled Diagnostic Cerebral Angiogram with Dr. Bess Patient contacted scheduling office needing to reschedule procedure from 02/17/2025 to 03/16/2025. Message was forwarded to Anuja CASTELLON. I contacted patient to notify her that procedure has been rescheduled. Pre-procedure instructions were reviewed and reinforced. Patient verbalizes understanding. Patient provided with arrival time of 0900 day of procedure on 03/16/2025. Patient also provided [phone] contact number should any questions arise. documented in this encounter [facility] 02-13-2025 Telephone encounter Note Patient called and needs to reschedule DSA with Dr. Bess. DSA now scheduled for 03/16/25. Will make YESICA CASTELLON aware. [facility] 02-13-2025 Miscellaneous Notes Patient called and needs to reschedule DSA with Dr. Bess. DSA now scheduled for 03/16/25. Will make YESICA CASTELLON aware. documented in this encounter [facility] 02-03-2025 Telephone encounter Note Summary: date/time of cerebral angiogram Spoke with patient via phone regarding date/time of upcoming DSA with Dr. Murrell on 02/17/25 @1030am. All questions answered. [facility] 02-03-2025 Miscellaneous Notes Summary: date/time of cerebral angiogram Spoke with patient via phone regarding date/time of upcoming DSA with Dr. Murrell on 02/17/25 @1030am. All questions answered. documented in this encounter [facility] 01-18-2025 Telephone encounter Note Summary: Reminder call for DSA on 01/19/25 Left voicemail message regarding upcoming NIL DSA on 01/19/[address] Bess at 11am. Instructed patient to call with any questions. [facility] 01-18-2025 Miscellaneous Notes Summary: Reminder call for DSA on 01/19/25 Left voicemail message regarding upcoming NIL DSA on 01/19/[address] Bess at 11am. Instructed patient to call with any questions. documented in this encounter [facility] 01-10-2025 Telephone encounter Note Gave arrival time [...] back with any other questions or concerns. [facility] 01-10-2025 Miscellaneous Notes Gave arrival time and [...] questions or concerns. documented in this encounter [facility] 01-03-2025 Telephone encounter Note Left VM for patient to call and schedule diagnostic angiogram with Dr. Bess. Provided call back number to call and schedule. [facility] 01-03-2025 Miscellaneous Notes Left VM for patient to call and schedule diagnostic angiogram with Dr. Bess. Provided call back number to call and schedule. documented in this encounter [facility] 01-02-2025 Note HNO ID: [id number] Author: GOPI BESS MD Service: ? 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 Jeremiah Martínez MD Status: RE G CLI Study:Chest PA and Lateral Date of Exam: 12/19/24 Exam# [id number] Ordering Dr: Dawson Gilman [employer]-C PROCEDURE: CHEST PA AND LATERAL 12/19/2024 REASON [...] fractures. Subacute right rib fractures. Reading Location: [id number] CC: OLIVE Gilman; Dr. Jeremiah Martínez MD ~ Senior Training Specialist: Signed [facility] 11-08-2024 Evaluation note Diagnosis Onset Date Resolution Daytime hypersomnia acute November 08, 2024 12:41pm Mass of upper lobe of left lung acute November 08, 2024 12:41pm Asthma-COPD overlap syndrome chronic November 08, 2024 12:41pm Hypoxia chronic November 08 12:41pm [facility] Work Phone: 1(816) 621-200802-07-2025 Hospital Discharge instructions* Discharge Instructions* Harpal Cuevas MD - 10/14/2024 11:54 AM EST - perform salt water gargles 4 times a day -Use Saline nasal spray 4 times a day. -Drink lots of fluids and get plenty of rest. --OTC tylenol as directed on the bottle. -perform deep breathing to promote clearing of the airways and good lung expansion. documented in this [facility]02-07-2025 Emergency department Note* Alona Mendosa RN - 10/14/2024 10:35 AM EST Patient ambulated to restroom. [id number] Emergency department Note* Alona Mendosa RN - 10/14/2024 10:35 AM EST Patient ambulated to restroom. * Harpal Cuevas MD - 10/14/2024 9:13 AM EST Images from the original note were not [...] weeks. Tinnitus. Postnasal drip. She has been on2 antibiotics. No diarrhea. No fever. Reports perioral tingling. Chills. Myalgias arthralgias. She was recently started on lisinopril hydrochlorothiazide. REVIEW OF SYSTEMS Review of Systems Patient Active Problem List Diagnosis Abnormal nuclear stress test Hypertension Closed right hip fracture, initial encounter ([facility]) Closed 2-part intertrochanteric fracture of proximal end of right femur, initial encounter ([facility]) CURRENT MEDICATIONS Previous Medications ALBUTEROL (2.5 MG/3ML) [...] After use, clean tip and replace cap. [id number] (TRELEGY ELLIPTA) 100-62.5-25 MCG/ACT AEROSOL POWDER 1 [...] then take 1 tabletby mouth at bedtime TRAMADOL (ULTRAM) 50 MG [...] mastoid tenderness. Tympanic membrane is bulging. Tympanic membraneis not injected, scarred, perforated or erythematous. Left [...] No nystagmus. cranial nerves II-12 intact, motor examinationis normal, sensory examination is normal, cerebellar examination is normal, reflexes are normal andsymmetric, gait is intact.nihss=0. Psychiatric: Behavior: Behavior normal. Thought Content: Thought content normal. SCREENINGS Cristofer Coma Scale Best Eye Response: Spontaneous Best Verbal Response: Oriented Best Motor Response: Follows commands Wheeler Coma Scale Score: 15 Medical decision making [...] In compliance with this authorization, please visit www.fda.gov/media/114601/download or www.fda.gov/media/090473/download to access the applicable information sheets. SEDIMENTATION [...] as of 10/14/24 1155 ThuOct 14, 2024 09 MR brain w and wo contrast (06/07/24 [...] imaging, or hospitalization (in the case of dischargehome) to be equal to or greater than [...] most likely have more risk than benefit. [id number] SHARED DECISION MAKING: I discussed my risk assessment with the patient. The patient understands and consents to the risk of disposition/plan, as well as the risk of uncertainty in estimating outcomes. [id number] REVAL: CRITICAL CARE TIME PROCEDURES: Procedures FINAL IMPRESSION 1. Inflammatory disorder of upper respiratory tract DISPOSITION/PLAN DISPOSITION Discharge 10/14/2024 11:52:58 AM PATIENT REFERRED TO: Jeremiah Martínez MD [address] [place] [id number] Call in 1 week I prescribed: New [...] (electronically signed) Harpal Cuevas MD 10/14/24 1155 * Alona Mendosa RN - 10/14/2024 9:13 AM EST Pateint to room 5 with c/o dizziness for three weeks. Patient reports she has tingling around her mouth and chin that started today. Patient reports fatigue, cough, chills, headache, muscle and jointpain for three weeks, however over the last three days symptoms have increased. V/S obtained, call light within reach. Patient finished an antibiotic this am. documented in this [facility]02-07-2025 Emergency department Triage note* Alona Mendosa RN - 10/14/2024 9:13 AM EST Pateint to room 5 with c/o dizziness for three weeks. Patient reports she has tingling around her mouth and chin that started today. Patient reports fatigue, cough, chills, headache, muscle and jointpain for three weeks, however over the last three days symptoms have increased. V/S obtained, call light within reach. Patient finished an antibiotic this am. [facility] [id number] Physician Emergency department Note* Harpal Cuevas MD - 10/14/2024 9:13 AM EST Images from the original note were not [...] weeks. Tinnitus. Postnasal drip. She has been on2 antibiotics. No diarrhea. No fever. Reports perioral tingling. Chills. Myalgias arthralgias. She was recently started on lisinopril hydrochlorothiazide. REVIEW OF SYSTEMS Review of Systems Patient Active Problem List Diagnosis Abnormal nuclear stress test Hypertension Closed right hip fracture, initial encounter ([facility]) Closed 2-part intertrochanteric fracture of proximal end of right femur, initial encounter ([facility]) CURRENT MEDICATIONS Previous Medications ALBUTEROL (2.5 MG/3ML) [...] After use, clean tip and replace cap. [id number]-[id number]-[id number] (TRELEGY ELLIPTA) 100-62.5-25 MCG/ACT AEROSOL POWDER 1 [...] then take 1 tabletby mouth at bedtime TRAMADOL (ULTRAM) 50 MG [...] mastoid tenderness. Tympanic membrane is bulging. Tympanic membraneis not injected, scarred, perforated or erythematous. Left [...] No nystagmus. cranial nerves II-12 intact, motor examinationis normal, sensory examination is normal, cerebellar examination is normal, reflexes are normal andsymmetric, gait is intact.nihss=0. Psychiatric: Behavior: Behavior normal. Thought Content: Thought content normal. SCREENINGS Wheeler Coma Scale Best Eye Response: Spontaneous Best [...] In compliance with this authorization, please visit www.fda.gov/media/373429/download or www.fda.gov/media/777200/download to access the applicable information sheets. SEDIMENTATION [...] as of 10/14/24 1155 ThuOct 14, 2024 09 MR brain w and wo contrast (06/07/24 [...] imaging, or hospitalization (in the case of dischargehome) to be equal to or greater than [...] most likely have more risk than benefit. [id number] SHARED DECISION MAKING: I discussed my risk assessment with the patient. The patient understands and consents to the risk of disposition/plan, as well as the risk of uncertainty in estimating outcomes. [id number] REVAL: CRITICAL CARE TIME PROCEDURES: Procedures FINAL IMPRESSION 1. Inflammatory disorder of upper respiratory tract DISPOSITION/PLAN DISPOSITION Discharge 10/14/2024 11:52:58 AM PATIENT REFERRED TO: Jeremiah Martínez MD [address] [place], [place] [id number] Call in 1 week I prescribed: New [...] (electronically signed) Harpal Cuevas MD 10/14/24 1155 [facility]12-24-2024 Evaluation note* Diagnosis Onset Date Resolution Status Admit Date Mass of upper lobe of left lung acute August 30, 2 024 2:07pm Asthma-COPD overlap syndrome chronic August 30, 2024 2:07pm Hypoxia chronic August 30, 2024 2:07pm Mass of upper lobe of left lung acute September 30 7:39am Asthma-COPD overlap syndrome chronic September 30, 2024 7:39am Hypoxia chronic September 30, 2024 7:39am 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 Naveed Kat MA [facility]07-09-2024 Miscellaneous Notes* Telephone Encounter - Naveed Kat [...] advise. Naveed Kat MA [facility] History of Present illness Narrative* Nery Ruiz MD - 01/21/2024 9:30 AM EDT [facility] E[facility] [address] PENDING S[facility] TO [facility] [address] Dept phone: [phone] Sully Perdomo [id number] Assessment and Recommendations 1. Chronic pansinusitis Nasal [...] to about 3 cigarettes/day at this point. Nery Ruiz MD Subjective This is a 68 [...] daily. escitalopram (Lexapro) 10 MG tablet HYDROcodone-acetaminophen (Moore) 5-325 MG tablet take 1 tablet by [...] Hypertension Closed right hip fracture, initial encounter ([facility]) Closed 2-part intertrochanteric fracture of proximal end of right femur, initial encounter ([facility]) Objective Physical Exam Constitutional - alert, no [...] overt purulence. No polyps. documented in this [facility]05-16-2024 Instructions* Patient Instructions* Nery Ruiz MD - 01/21/2024 9:30 AM EDT [...] sneezing, itchy/watery eyes. These are safe for exterminator use. How to Irrigate the nose Fill [...] air purifier/ HEPA filter documented in this [facility]05-08-2024 Telephone encounter Note* Telephone Encounter - Helena Ott - 01/13/2024 4:51 PM EDT We have been unable to reach your patient to schedule their testing. Test Name: Stress echocardiogram (TTE) exercise with contrast, bubble, strain, and 3D PRN 1st Attempt: 01/12/24 Patient states she will call back 2nd Attempt: 01/13/24 sent Applaudg JS FYI [facility] [id number] Miscellaneous Notes* Telephone Encounter - Helena Ott - 01/13/2024 4:51 PM EDT We have been unable to reach your patient to schedule their testing. Test Name: Stress echocardiogram (TTE) exercise with contrast, bubble, strain, and 3D PRN 1st Attempt: 01/12/24 Patient states she will call back 2nd Attempt: 01/13/24 sent Applaudg JS FYI documented in this [facility]04-23-2024 Telephone encounter Note* Telephone Encounter - Dea Mcdonald RN - 12/29/2023 3:41 PM EDT We have been unable to reach your patient to schedule their testing. Test Name: US abdomen. Ordered 04/07/23 1st attempt via [employer], 1 cancellation - 04/10/23, 12/20/23 CL 2nd attempt called TONYA HERNANDEZ to office and defer. 12/29/23 LR [facility] [id number] Miscellaneous Notes* Telephone Encounter - Dea Mcdonald RN - 12/29/2023 3:41 PM EDT We have been unable to reach your patient to schedule their testing. Test Name: US abdomen. Ordered 04/07/23 1st attempt via [employer], 1 cancellation - 04/10/23, 12/20/23 CL 2nd attempt called TONYA HERNANDEZ to office and defer. 12/29/23 LR documented in this [facility]04-08-2024 Miscellaneous Notes* Telephone Encounter - Naveed Kat [...] advise. Naveed Kat MA [facility] Telephone encounter Note * Telephone Encounter - [...] Protocols used: Information Only Call - No [id number] [facility]01-05-2024 Miscellaneous Notes* Telephone Encounter - Purnima Santos [...] Protocols used: Information Only Call - No [id number] documented in this [facility]10-30-2023 Miscellaneous Notes* Telephone Encounter - Naveed Kta MA - 07/06/2023 7:58 AM EDT Patient phones requesting refills as follows: Requested Prescriptions Pending Prescriptions Disp Refills omeprazole (PRILOSEC) 20 mg capsule [Pharmacy Med Name: OMEPRAZOLE DR 20 MG CAPSULE] 30 capsule 2 Sig: take 1 capsule by mouth once daily TAKE ON EMPTY STOMACH AT LEAST 30 MINUTES BEFORE EATING Please review and advise. Naveed Kat MA documented in this [facility]10-23-2023 Telephone encounter Note * Telephone Encounter - cB Way - 06/29/2023 2:13 PM EDT Hello the stress echo is not passing medical necessity (ABN fail), thanks! [facility] [id number] Miscellaneous Notes* Telephone Encounter - B[address] - 06/29/2023 2:13 PM EDT Hello the stress echo is not passing medical necessity (ABN fail), thanks! documented in this [facility]10-05-2023 History of Present illness Narrative* James Arthur MD - 06/11/2023 2:16 PM EDT June 11, 2023 An order has been received for a CPAP Titration from [facility] Staff/Voltage Tester Staff Orders. Visit prep complete - Please refer to the sleep study order (under procedures tab) for protocol details and special instructions. Scheduled for 06/15/2023. Insurance: Payor: [employer] MEDICARE / Plan: [place] / Product Type: HMO / Payer/Plan Subscr Sex Relation Sub. Ins. ID Effective Group Num 1. [employer] MEDICA* SULLY PERDOMO 1955 Female Self [id number] 08/07/22 [address] [address] Bonita Vivienne 2022 Standing PSG Orders signed in the [...] 1998 Rx with oral steroids; followed by [facility] [employer] [facility] The medical record was reviewed to determine if the proposed sleep study conforms to the AAS Practice Parameters for the Indications for Polysomnography and Related Procedures, or if the sleep studyis indicated for other reasons. Indications for study: CODY previously diagnosed: Evaluate response to PAP therapy Sleep study to be performed: PAP titration study Special instructions: Target REM/supine sleep [facility] Staff Note: I have read the above protocol, edited as needed, and agree to the plan. James Arthur MD 3:21 PM, 06/11/2023 documented in this [facility] Instructions* Patient Instructions* Ellen Barakat PA-C - [...] If you do not have a responsible snaker tractor driver (family member or friend) withyou to take you home, your exam cannot be done with sedation and will be cancelled. Please bring a list of all of your current medications, including any Zcrx-ttl-Qhrgzhs medications with you. Medications If you take [...] your exam. 2 08/2019 documented in this encounterPrem[facility]08-[facility]-2023 History of Present illness Narrative* Ellen Barakat [...] 1998 Rx with oral steroids; followed by [employer] PAST SURGICAL HISTORY Procedure Laterality Date APPENDECTOMY [...] Employer And Job Title: No employer specified ([employer]) Years Of Education Completed: Not specified Marital [...] which included preparing to see the patient, xyfo-[id number] patient care, completing clinical documentation, obtaining and/or reviewing separately obtained history, performing a medically appropriate examination, counseling and educating the pat ient/family/caregiver, ordering medications, tests, or procedures, communicating with other HCPs (not separately reported), independently interpreting results (not separately reported), communicatingresults to the patient/family/caregiver, and care coordination (not separately reported). Ellen Barakat PA-C April 16, 2023 9:40 AM documented in this encounterPrem[facility]04-11-2023 History of Present illness Narrative* Phillip Tobar MD - 12/16/2022 10:30 AM EDT Images from the original note were not included. [facility] [address] [place] [address] Dept: [phone] Dept Chief Complaint Patient presents with New [...] at [facility] physical therapy in the [facility]. No follow-ups on file. Phillip Tobar MD 12/16/2022 11:01 AM Please note that portions of this note may have been completed with voice recognition software. Documentation reviewed prior to signing but minor errors in processes chemical design engineer may have occurred. documented in this [facility]09-22-2022 Miscellaneous Notes* Telephone Encounter - Lizzie Ferrari [...] Taking Tylenol without relief. Protocols used: Shoulder [id number] [facility]* Diagnosis Injury of head, initial encounter- Primary Fall, initial encounter Laceration of scalp, initial encounter Acute alcoholic intoxication without complication (HCC) documented in this encounter [facility] Work Phone: Evaluation note* Diagnosis Right wrist fracture, closed, initial encounter- Primary documented in this encounter [facility] Work Phone: Evaluation noteNo assessment information available [facility] Work Phone: Evaluation note* Diagnosis Acute pain of right knee- Primary Quadriceps weakness Tendinopathy of right gluteus medius Acute pain of right knee [facility] Diagnosis Acute pain of right knee documented in this encounter [facility]* Diagnosis Hypoxemia- Primary Hypoxemia documented in this encounter [facility]* Diagnosis Localized swelling, mass and lump, left lower limb documented in this encounter [facility]* Diagnosis Altered bowel habits- Primary Other symptoms involving digestive system Postprandial epigastric pain Abdominal pain, epigastric Abnormal weight loss Loss of weight documented in this encounter [facility] note* Diagnosis Localized swelling, mass and lump, left lower limb- Primary Localized swelling, mass and lump, left lower limb documented [facility] this encounter [facility]* Diagnosis Emphysema, unspecified (HCC) documented in this encounter [facility] note* Diagnosis Postprandial epigastric pain Abdominal pain, epigastric documented in this encounter [facility] note* Diagnosis Emphysema, unspecified (HCC)- Primary Emphysema, unspecified (HCC) documented in this encounter [facility]* Diagnosis Emphysema, unspecified (HCC)- Primary documented in this encounter [facility] note* Diagnosis Chronic sinusitis, unspecified documented in this encounter [facility]* Diagnosis Chronic sinusitis, unspecified documented in this encounter [facility]* Diagnosis Pain in right knee documented in this encounter [facility] note* Diagnosis Postprandial epigastric pain Abdominal pain, epigastric [facility]* Diagnosis Onset Date Resolution Status Mass of upper lobe of left lung acute Asthma-COPD overlap syndrome [facility] Work Phone: Evaluation note* Diagnosis Chronic pansinusitis- Primary Other chronic sinusitis documented in this encounter [facility] note* Diagnosis Chronic sinusitis, unspecified- Primary Chronic sinusitis, unspecified documented in this encounter [facility] note* Diagnosis Chronic sinusitis, unspecified- Primary documented in this encounter [facility] note* Diagnosis Pain in right knee- Primary Pain in right knee documented in this encounter [facility] note* Diagnosis Abnormal results of function studies of other organs and systems documented in this encounter [facility] note* Diagnosis Otitis media, unspecified, left ear documented in this encounter [facility] note* Diagnosis Abnormal results of function studies of other organs and systems- Primary Abnormal results of function studies of other organs and systems documented in this encounter [facility] note* Diagnosis Otitis media, unspecified, left ear- Primary Otitis media, unspecified, left ear documented in this encounter [facility] [facility] Diagnosis Shortness of breath- Primary Weakness Other malaise and fatigue documented in this encounter [facility]* Diagnosis Inflammatory disorder of upper respiratory tract- Primary documented in this encounter [facility]* Diagnosis Pneumothorax, unspecified Fracture of one rib, unspecified side, initial encounter for closed fracture documented in this encounter [facility]* Diagnosis Other acute recurrent sinusitis documented in this encounter [facility]* Diagnosis Dizziness and giddiness documented in this encounter [facility] note* Diagnosis Pneumothorax, unspecified- Primary Fracture of one rib, unspecified side, initial encounter for closed fracture Pneumothorax, unspecified Fracture of one rib, unspecified side, initial encounter for closed fracture documented in this encounter [facility] note* Diagnosis Cervicalgia Pain in unspecified shoulder documented in this encounter [facility] Discharge instructions* Attachments The following attachments cannot be sent through Care Everywhere. * Lacerations: [place] (Dutch) * Scalp Laceration: Mina or Stitches (Dutch) * Alcohol Intoxication: Acute (Dutch) * Head Injury: Closed: General Info (Dutch) [facility] Phone[facility] Discharge instructions* Attachments The following attachments cannot be sent through Care Everywhere. * Splint or Immobilizer Use (Dutch) * Wrist Fracture (Dutch) [facility] Work Phone: Reason for referral (narrative)* Consultation (Routine) - Authorized Specialty Diagnoses / Procedures Referred By Contac t Referred To Contact Physical Therapy Diagnoses Acute pain of right knee Quadriceps weakness Tendinopathy of right gluteus medius Procedures CT OFFICE/OUTPATIENT [facility] 60-74 MINUTES Phillip Tobar MD [address] [place] [address] Referral ID Status Reason Start Date Expiration Date Visits Requested Visits Authorized [id number] Authorized Specialty Services Required 12/16/2022 12/16/2023 99 99 [facility] for referral (narrative)* Diagnostic Procedure Only (Routine) - Authorized Specialty Diagnoses / Procedures Referred By Contac t Referred To Contact US IMAGING Diagnoses Postprandial epigastric pain Procedures US ABD RIGHT UPPER QUADRANT US ABDOMINAL REAL TIME W/IMAGE LIMITED Ellen Barakat PA-C [address] [place] [address] Us Imaging Referral ID Status Reason Start Date Expiration Date Visits Requested Visits Authorized [id number] Authorized Auto-Generat ed Referral 04/16/2023 05/15/2024 1 1 * Outpatient Procedure (Routine) - Pending Review Specialty Diagnoses / Procedures Referred By Contac t Referred To Contact [facility] Diagnoses Altered bowel habits Abnormal weight loss Procedures COLONOSCOPY DIAGNOSTIC COLONOSCOPY FLX DX W/COLLJ SPEC WHEN PFRMD Ellen Barakat PA-C [address] [place] [address] [facility] [address] [place] [address] Referral ID Status Reason Start Date Expiration Date Visits Requested Visits Authorized [id number] Pending Review Auto-Generat ed Referral 04/16/2023 04/16/2024 1 1 * Outpatient Procedure (Routine) - Pending Review Specialty Diagnoses / Procedures Referred By Arianna t Referred To Contact [facility] Diagnoses Abnormal weight loss Postprandial epigastric pain Procedures EGD DIAGNOSTIC ESOPHAGOGASTRODUODENOS COPY TRANSORAL DIAGNOSTIC Ellen Barakat PA-C [address] [facility] [place] [address] [facility] [address] [place] [address] Referral ID Status Reason Start Date Expiration Date Visits Requested Visits Authorized [id number] Pending Review Auto-Generat ed Referral 04/16/2023 04/16/2024 1 1 [facility]No reason for referral information availableWCleveland Clinic [facility] Work Phone: Reason for visit Narrative* Imaging (Routine) - Closed Specialty Diagnoses / Procedures Referred By Airanna t Referred To Contact Radiology Diagnoses Other acute recurrent sinusitis Procedures CT maxillofacial wo IV contrast Sergio Meneses MD [address] [place] [address] Phone: tel: fax: Referral ID Status Reason Start Date Expiration Date Visits Re quested Visits Authorized [id number] Closed 11/21/2024 01/20/2025 1 1 [facility] for visit Narrative* Imaging (Routine) - Closed Specialty Diagnoses / Procedures Referred By Arianna t Referred To Contact Radiology Diagnoses Dizziness and giddiness Procedures MR brain w and wo contrast Sergio Meneses MD [address] [place] [address] Phone: tel: fax: [facility] MRI [address] [place] [address] Phone: tel: Referral ID Status Reason Start Date Expiration Date Visits Re quested Visits Authorized [id number] Closed 11/22/2024 11/22/[address] [facility] Advance Directives Documents on File Type Date Recorded Patient Line Clearance Foreman Expl anation Advance Directives and Living Will Power of [place] Line Attendant Latest Code Status on File Code Status [...] Documents on File Type Date Recorded Patient Line Clearance Foreman Expl anation ACP-Advance Directive ACP-Power of [place] Line Attendant Advance Directive Response Recorded Date/ Time Living Will No October 30, 021 6:28pm Power of [place] Line Attendant No October 30, 2020 6:28pm Advance Directive Response Recorded Date/ Time Living Will No October 30, 2 021 7:28pm Power of [place] Line Attendant No October 30, 2020 7:28pm Advance Directive Response Recorded Date/ Time Living Will No October 30 021 7:28pm Do you have a Healthcare Power of [place] Line Attendant? No October 30, 2020 7:28pm Hospital Course * Dea Laws, DO - 06/12/2019 10:00 AM EDT Physician Discharge Summary Patient ID: Sully Perdomo [id number] y.o. 1955 Admit date: 06/11/2019 Discharge date and time: 06/14/19 Admitting Physician: Foreign Fenton MD Discharge Physician: DEA LAWS MD Admission Diagnoses: Closed 2-part intertrochanteric fracture of proximal end of right femur, initial encounter ([facility]) [S72.141A] Closed right hip fracture, initial encounter ([facility]) [S72.001A] Discharge Diagnoses: same with hip repair [...] Discharging Nurse: ELIZABETH [facility] Unit/Room#: 154/1541 Discharging Unit Emergency Contact: Extended Emergency Contact Information Primary Emergency Contact: luiza perdomo Relation: Child Past Surgical History: Past Surgical History: Procedure Laterality Date APPENDECTOMY DIAGNOSTIC CARDIAC FLEET SALES MANAGER PROCEDURE 06/01/2019 Non obstructive CAD with mild [...] proximal end of right femur, initial encounter ([facility]) S72.141A Closed right hip fracture, initial encounter ([facility]) S72.001A Isolation/Infection: Isolation No Isolation Nurse Assessment: [...] Assisted Dressing Assisted Toileting Independent Feeding Independent Unleavened Dough Mixer Independent Med Delivery whole Wound Care Documentation [...] Readmission: 8 Discharging to Facility/ Agency Name: [facility] Address: [address] [place] [address] [place] [address] Dialysis Facility (if applicable) Name: Address: Dialysis Schedule: Phone: Fax: Snuff Grinder And Screener/Zoo Director signature: ICIAN SECTION Prognosis: Good Condition at Discharge: Stable Rehab Potential (if transferring to Rehab): Good Recommended Labs or Other Treatments After Discharge: none Physician Certification: I certify the above information and transfer of Sully Perdomo is necessary for the continuing treatment of the diagnosis listed and that she requires Residential Facility for less 30 days. Update Admission [...] sent through Care Everywhere. * Cervical Strain (Dutch) * Nose Fracture (Dutch) * Head Injury: Closed: General Info (Dutch) documented in this encounter History of Present Illness * Morena Moses, OPERATIONS AND INTELLIGENCE ASSISTANT - 06/14/2019 10:22 AM EDT Physical Therapy Facility/Department: [facility] Daily Treatment Note NAME: Sully [...] 2-part intertrochanteric fractureof right femur, initial encounter ([facility]). Diagnoses of Right hip pain, Fall from ground level, Abnormal nuclear stress test, and Closed 2-part intertrochanteric fracture of proximal end of right femur, initial encounter ([facility]) were also pertinent to this visit. has a past medical history of Arthritis, Back pain, Chronic cervical pain, Chronic pain of left hand, Hypertension, and Knee pain, right. has a past surgical history that includes Tonsillectomy; Appendectomy; Elbow surgery; sinus surgery; Hemorrhoid surgery; Diagnostic Cardiac Jet Worker Procedure (06/01/2019); shoulder surgery; and hip surgery [...] ex and gait) Morena Moses PTA * DsouzaLisaLASHONDA - 06/13/2019 11:40 AM EDT Occupational Therapy Facility/Department: [facility] Daily Treatment Note NAME: Sully Perdomo : 1955 Date of Service: 06/13/2019 Discharge Recommendations: IP Rehab, Continue to assess pending progress(vs [facility]) Attempt to treat. Pt awake in bed and states that her daughter is on her way with lunch and pt requests to be allowed to visit and eat with her daughter. Pt request to be seen later if she is not discharged to SNF today. Will continue to follow and attempt to treat again. MELISSA [place]/Sandra * Morena Moses PTA - 06/13/2019 8:58 AM EDT Physical Therapy Facility/Department: [facility] Daily Treatment Note NAME: Sully [...] 2-part intertrochanteric fractureof right femur, initial encounter ([facility]). Diagnoses of Right hip pain, Fall from ground level, Abnormal nuclear stress test, and Closed 2-part intertrochanteric fracture of proximal end of right femur, initial encounter ([facility]) were also pertinent to this visit. has a past medical history of Arthritis, Back pain, Chronic cervical pain, Chronic pain of left hand, Hypertension, and Knee pain, right. has a past surgical history that includes Tonsillectomy; Appendectomy; Elbow surgery; sinus surgery; Hemorrhoid surgery; Diagnostic Cardiac Jet Worker Procedure (06/01/2019); shoulder surgery; and hip surgery [...] Henriquez MD - 06/13/2019 6:32 AM EDT [facility] 1E MED SURG [address] [facility] [address] Dept: [phone] Loc: [phone] Orthopedic Progress Note Name: Sully Perdomo Date:06/13/2019 [...] LABS: Recent Labs 06/11/19 0151 06/12/19 0428 06/13/19 0418 WBC 12.5* 11.2* 10.6 HGB 14.0 10.9* 11.0* HCT 41.0 32.3* 32.6* PLT 320 258 276 Recent Labs 06/11/19 0151 NA 140 K 3.7 CL 107 CO2 23 BUN 12 CREATININE 0.65 CALCIUM 9.2 Recent Labs 06/11/19 0151 INR 1.0 No results for input(s): SEDRATE, CRP in the last 72 hours. No results for input(s): HCG in the last 72 hours. Assessment Sully is a 63 y.o.female s/p 06/11 Intertan nailing of right hip Plan WBAT DVT prophylaxis-ASA 81 mg BID Follow up 2wks Ortho will sign off at this time. Please page the resident precision printing worker with issues * Elma Marroquin RD, MILO - 06/12/2019 3:30 PM EDT Nutrition screen complete. Chart/labs reviewed. Pt assigned level one for nutrition care DTR to monitor and follow up * Ana Ordonez OTA - 06/12/2019 11:16 AM EDT Occupational Therapy Facility/Department: [facility] Daily Treatment Note NAME: Sully Perdomo : 1955 Date of Service: 06/12/2019 Discharge Recommendations: IP Rehab, Continue to assess pending progress(vs [facility]) Assessment Assessment: Pt in 03/16 pain but [...] initial encounter (HCC). Diagnoses of Right hip pain, Fall from ground level, Abnormal nuclear stress test, and Closed 2-part intertrochanteric fracture of proximal end of right femur, initial encounter ([facility]) were also pertinent to this visit. has a past medical history of Arthritis, Back pain, Chronic cervical pain, Chronic pain of left hand, Hypertension, and Knee pain, right. has a past surgical history that includes Tonsillectomy; Appendectomy; Elbow surgery; sinus surgery; Hemorrhoid surgery; Diagnostic Cardiac Jet Worker Procedure (06/01/2019); shoulder surgery; and hip surgery [...] instructed on use of sock aid and reactor fueling supervisor. Pt had never used one before. Cues [...] Time Individual Concurrent Group Co-treatment Time In 0957 Time Out 1043 Minutes 46 Timed Code Treatment Minutes: 42 Minutes(adl,2 and ther act,1) LASHONDA Almonte * Charlene Eller, PT - 06/12/2019 10:56 AM EDT Physical Therapy Facility/Department: [facility] Daily Treatment Note NAME: Sully [...] 2-part intertrochanteric fractureof right femur, initial encounter ([facility]). Diagnoses of Right hip pain, Fall from ground level, Abnormal nuclear stress test, and Closed 2-part intertrochanteric fracture of proximal end of right femur, initial encounter ([facility]) were also pertinent to this visit. has a past medical history of Arthritis, Back pain, Chronic cervical pain, Chronic pain of left hand, Hypertension, and Knee pain, right. has a past surgical history that includes Tonsillectomy; Appendectomy; Elbow surgery; sinus surgery; Hemorrhoid surgery; Diagnostic Cardiac Jet Worker Procedure (06/01/2019); shoulder surgery; and hip surgery [...] Time Individual Concurrent Group Co-treatment Time In 923 Time Out 0950 Minutes 26 Timed Code Treatment Minutes: 25 Minutes(gait and therex) Charlene Eller PT * Willian May MD - 06/12/2019 7:[address] [facility] 1E MED SURG [address] [facility] [address] Dept: [phone] Loc: [phone] Orthopedic Progress Note Name: Sully Perdomo Date:06/12/2019 [...] 32.3* PLT 320 258 Recent Labs 06/11/19 0151 NA 140 K 3.7 CL 107 CO2 23 BUN 12 CREATININE 0.65 CALCIUM 9.2 Recent Labs 06/11/19 0151 INR 1.0 No results for input(s): SEDRATE, CRP in the last 72 hours. No results for input(s): HCG in the last 72 hours. Assessment Sully is a 63 y.o.female s/p 06/11 Intertan nailing of right hip Plan WBAT Abx x 24hrs DVT prophylaxis Follow up 2wks * Bernice Dobson, PT - 06/11/2019 2:49 PM EDT Physical Therapy Facility/Department: [facility] 1E MED SURG Initial Assessment NAME: Sully Perdomo [...] surgery; sinus surgery; Hemorrhoid surgery; Diagnostic Cardiac Jet Worker Procedure (06/01/2019); shoulder surgery; and hip surgery [...] Assistance: Independent(no device) Transfer Assistance: Independent Active Rip Saw Operator: Yes Additional Comments: pt may be [...] for falls, Left in chair OutComes Score AM-PAC Mobility Inpatient How much difficulty turning over [...] 3-5 steps with a railing?: A Lot AM-PAC Inpatient Mobility Raw Score : 17 AM-PAC Inpatient T-Scale Score : 42.13 Mobility Inpatient [...] IP Rehab, Continue to assess pending progress(vs [facility]) OT Equipment Recommendations Other: TBD Assessment Performance [...] surgery; sinus surgery; Hemorrhoid surgery; Diagnostic Cardiac Jet Worker Procedure (06/01/2019); shoulder surgery; and hip surgery [...] Assistance: Independent(no device) Transfer Assistance: Independent Active Rip Saw Operator: Yes Additional Comments: pt may be [...] seated EOB and pt required assist to puller machine alfonzo hips in standing Tone RUE RUE [...] Plan of Care supervision is transferred to [facility] Occupational Therapist. Goals and/or treatment plan was established in collaboration with patient/family/other representatives. AM-PAC Score AM-PAC Inpatient Daily Activity Raw Score: 16 (06/11/19 1434) AM-PAC Inpatient ADL T-Scale Score : 35.96 (06/11/19 1434) ADL Inpatient CMS 0-100% Score: 53.32 (06/11/19 143) ADL Inpatient [facility] G-Code Modifier : CK (06/11/191433) Goals Short [...] 1336 Time Out 1357 Minutes 21 ALETHEA Lacey/Sandar * Annmarie Viramontes RN - 06/11/2019 10:54 [...] intertrochanteric fracture of right femur, initial encounter ([facility])- Primary Right hip pain Pain in joint, pelvic region and thigh Fall from ground level Abnormal nuclear stress test Other nonspecific abnormal cardiovascular system function study Closed right hip fracture, initial encounter ([facility]) Diagnosis Closed displaced intertrochanteric fracture of right femur with routine healing Aftercare for healing traumatic fracture of hip Right hip pain Pain in joint, pelvic region and thigh Diagnosis Injury of head, initial encounter Closed fracture of nasal bone, initial encounter Strain of neck muscle, initial encounter Summary Purpose Family History Relationship Condition Age at Onset Recorded Date/T [...] 12:41pm Hypoxia November 08, 2024 12:4 1pm Chief Complaint Admit Date 4 WK FU/TEST RESULTS November 08, 2024 12: 41pm INT RAD December 19, 2024 8:0 4am FEVER February 10, 2025 7:24a m Reason for Visit Admit Date Daytime hypersomnia November 08, 2024 12:4 1pm Mass of upper lobe of left lung November 12:41pm Asthma-COPD overlap syndrome November 08, 2024 12:41pm Hypoxia November 08, 2024 12:4 1pm Reason for Referral Specialty Diagnoses / Procedures Referred By Arianna t Referred To Contact Cardiology Diagnoses Emphysema, unspecified (HCC) Procedures Stress echocardiogram (TTE) exercise with contrast, bubble, strain, and 3D PRN CT ECHO TTHRC R-T 2D W/WO M-MODE COMPLETE REST&ST CT ECHO TTHRC R-T 2D W/WO M-MODE REST&STRS CONT ECG CT DOPPLER ECHOCARD PULSE WAVE W/SPECTRAL DISPLAY CT DOP ECHOCARD COLOR FLOW VELOCITY MAPPING CT CV STRS TST XERS&/OR RX CONT ECG W/O I&R CT CV STRS TST XERS&/OR RX CONT ECG TRCG ONLY CT CV STRS TST XERS&/OR RX CONT ECG I&R ONLY Jeremiah Martínez MD [address] [facility] [address] [place] [phone] Referral ID Status Reason Start Date Expiration Date V isits Requested Visits Authorized [id number] Authorized 06/29/2023 06/28/2024 1 1 Specialty Diagnoses / Procedures Referred By Arianna t Referred To Contact Radiology Diagnoses Chronic sinusitis, unspecified Procedures MR brain wo contrast Jeremiah Martínez MD [address] [facility] [address] [place] [address] Referral ID Status Reason Start Date Expiration Date Visits Re quested Visits Authorized [id number] Closed 11/06/2023 11/05/2024 1 1 Specialty Diagnoses / Procedures Referred By Arianna t Referred To Contact Radiology Diagnoses Abnormal results of function studies of other organs and systems Procedures MR brain w and wo contrast MR brain w contrast Jeremiah Martínez MD [address] [place] [address] Referral ID Status Reason Start Date Expiration Date Visits Re quested Visits Authorized [id number] Closed 05/05/2024 07/04/2024 1 1 Additional Source Comments Reason for Visit (unrecogniz ed section and content) Reason Comments Dizziness Hip Pain Reason Comments Head Injury Fall Reason Comments Fall Head Injury Reason Comments Wrist Injury Reason Comments Shoulder Injury Reason Comments New Patient Right Specialty Diagnoses / Procedures Referred By Arianna t Referred To Contact Sports Medicine Diagnoses Pain in right knee Procedures CT OFFICE/OUTPATIENT NEW HIGH MDM 60-74 MINUTES Jeremiah Martínez MD [address] [place] [phone] Phillip Tobar MD [address] [place] [address] Referral ID Status Reason Start Date Expiration Date V isits Requested Visits Authorized [id number] Closed Specialty Services Required 11/24/2022 11/24/2023 1 1 Reason Comments Elevated lipase Lost 40 lbs in the l ast couple months. Having some stomach pains and bloating along with diarrhea. Labs scanned in yesterday. Reason Comments Polysomnogram Reason Onset Date Comments Scheduling 06/29/2023 Specialty Diagnoses / Procedures Referred By Arianna aguirre Referred To Contact Cardiology Diagnoses Emphysema, unspecified (HCC) Procedures Stress echocardiogram (TTE) exercise with contrast, bubble, strain, and 3D PRN CT ECHO TTHRC R-T 2D W/WO M-MODE COMPLETE REST&ST CT ECHO TTHRC R-T 2D W/WO M-MODE REST&STRS CONT ECG CT DOPPLER ECHOCARD PULSE WAVE W/SPECTRAL DISPLAY CT DOP ECHOCARD COLOR FLOW VELOCITY MAPPING CT CV STRS TST XERS&/OR RX CONT ECG W/O I&R CT CV STRS TST XERS&/OR RX CONT ECG TRCG ONLY CT CV STRS TST XERS&/OR RX CONT ECG I&R ONLY Jeremiah Martínez MD [address] [place] [address] Referral ID Status Reason Start Date Expiration Date V isits Requested Visits Authorized [id number] Authorized 06/29/2023 06/28/2024 1 1 Reason Comments Refill Request Reason Onset Date Comments Appointment Request 09/11/2023 Specialty Diagnoses / Procedures Referred By Arianna aguirre Referred To Contact Radiology Diagnoses Chronic sinusitis, unspecified Procedures MR brain wo contrast Jeremiah Martínez MD [address] [place] [address] Referral ID Status Reason Start Date Expiration Date Visits Re quested Visits Authorized [id number] Closed 11/06/2023 11/05/2024 1 1 Reason Onset Date Comments OTher 01/13/2024 Inform Provider Reason Comments New Patient Sinus polyp Specialty Diagnoses / Procedures Referred By Arianna aguirre Referred To Contact Otolaryngology Diagnoses Other polyp of sinus Procedures CLINIC-OTHER Jeremiah Martínez MD [address] [place] [address] [facility] [address] [place] [address] Referral ID Status Reason Start Date Expiration Date V isits Requested Visits Authorized [id number] Pending Review 11/24/2023 11/23/2024 1 1 Specialty Diagnoses / Procedures Referred By Arianna aguirre Referred To Contact Radiology Diagnoses Abnormal results of function studies of other organs and systems Procedures MR brain w and wo contrast MR brain w contrast Jeremiah Martínez MD [address] [place] [address] Referral ID Status Reason Start Date Expiration Date Visits Re quested Visits Authorized [id number] Closed 05/05/2024 07/04/2024 1 1 Reason Comments Dizziness Facial Pain Reason Comments Appointment Call for appointment time and verification of instructional letter for 01/19/25 Reason Comments Sand Technician - Other Reason Comments Med Refill Reason Onset Date Comments Results 03/04/2025 INFORMATION SOURCE (unrecogn ized section and content) DATE CREATED AUTHOR 2019 [facility] DATE CREATED AUTHOR AUTHOR'S ORGANIZ ATION [facility] DATE CREATED AUTHOR AUTHOR'S ORGANIZ ATION 02/14/2025 [facility] DATE CREATED AUTHOR AUTHOR'S ORGANIZ ATION 02/14/2025 [facility] DATE CREATED AUTHOR AUTHOR'S ORGANIZ ATION 03/03/2025 [facility] DATE CREATED AUTHOR AUTHOR'S ORGANIZ ATION 03/04/2025 [facility] Ordered Prescriptions (unrec ognized section and content) [...] 4 mg, SubCUTAneous, ONCE, 1 dose, On Thu12/01/21 at 1004, If oral and IV narcotics ordered, use oral first and only use IV if oral is ineffective or cannot take oral. Do Not give oral and IV within 1 hour of each other unless specifically ordered. 1006 (Given - Provid er: Cass Lemus RN - Comment: zohra) Scheduled Medication Order 10/12/2024 10/13/2024 10/14/2024 albuterol [...] 1009 (New Bag - Prov ider: Alona Mendosa RN)1109 (Stopped - Provider: Alona Mendosa RN) Care Teams (unrecognized sec tion and content) Costume Shop Manager Relationship Specialty Start Date End Date Jeremiah Martínez MD [address] [place] [address] PCP - General 02/25/17 Team Status: Active Member Role Status Dates Dr. Goldy Deleon MD Family Provider Active Dr. Jeremiah Martínez MD Primary Care Provider Active Team Status: Inactive Member Role Status Dates Dr. Jeremiah Martínez MD Primary Care Provider Active Ana Gilman MEDICAL INSURANCE BILLER, MEDICAL INSURANCE BILLER-C Attending Provider Active Costume Shop Manager Relationship Specialty Start Date End Date Jeremiah Martínez MD [address] [place] [address] PCP - General 02/25/17 Costume Shop Manager Relationship Specialty Start Date End Date Jeremiah Martínez MD [address] [place] [address] PCP - General 02/25/17 Costume Shop Manager Relationship Specialty Start Date End Date Jeremiah Martínez MD [address] [place] [id number] PCP - General 02/25/17 Costume Shop Manager Relationship Specialty Start Date End Date Jeremiah Martínez MD [address] [place] [id number] PCP - General 02/25/17 Costume Shop Manager Relationship Specialty Start Date End Date Jeremiah Martínez MD [address] [place] [id number] PCP - General 02/25/17 Costume Shop Manager Relationship Specialty Start Date End Date Jeremiah Martínez MD [address] [address] PCP - General Family Medicine 11/17/22 Costume Shop Manager Relationship Specialty Start Date End Date Jeremiah Martínez MD [facility] [address] [address] PCP - General Family Medicine 11/17/22 Costume Shop Manager Relationship Specialty Start Date End Date Jeremiah Martínez MD [facility] [address] [address] PCP - General Family Medicine 11/17/22 Costume Shop Manager Relationship Specialty Start Date End Date Jeremiah Martínez MD [address] [place] [address] PCP - General 02/25/17 Costume Shop Manager Relationship Specialty Start Date End Date Jeremiah Martínez MD [address] [place] [address] PCP - General 02/25/17 Costume Shop Manager Relationship Specialty Start Date End Date Jeremiah Martínez MD [address] [place] [address] PCP - General 02/25/17 Costume Shop Manager Relationship Specialty Start Date End Date Jeremiah Martínez MD [address] [address] PCP - General Family Medicine 11/17/22 Team Status: Inactive Member Role Status Dates Dr. Jeremiah Martínez MD Primary Care Provider Active Dr. Hai Hess MD Attending Provider, Refe rring Provider Active Costume Shop Manager Relationship Specialty Start Date End Date Jeremiah Martínez MD [address] [place] [address] PCP - General 02/25/17 Costume Shop Manager Relationship Specialty Start Date End Date Jeremiah Martínez MD [address] [place] [address] PCP - General 02/25/17 Team Status: Inactive Member Role Status Dates Dr. Jeremiah Martínez MD Primary Care Provider Active Dr. Trevor Issa DO Attending Provider, Referring Pro vider Active Costume Shop Manager Relationship Specialty Start Date End Date Jeremiah Martínez MD [address] [facility] [address] [place] [address] PCP - General Family Medicine 11/17/22 Team Status: Inactive Member Role Status Dates Dr. Jeremiah Martínez MD Primary Care Provider, Referr ing Provider Active Ana Gilman [employer] INS[employer]ANCE BILLER, MEDICAL INSURANCE BILLER-C Attending Provider Active Team Status: Inactive Member Role Status Dates Dr. Jeremiah Martínez MD Primary Care Provider Active Ana Gilman [employer] INS[employer]ANCE BILLER, MEDICAL INSURANCE BILLER-C Attending Provider, Referrin g Provider Active Costume Shop Manager Relationship Specialty Start Date End Date Jeremiah Martínez MD [address] [place] [id number] PCP - General 02/25/17 Costume Shop Manager Relationship Specialty Start Date End Date Jeremiah Martínez MD [address] [place] [address] PCP - General 02/25/17 Costume Shop Manager Relationship Specialty Start Date End Date Jeremiah Martínez MD [address] [place] [id number] PCP - General 02/25/17 Costume Shop Manager Relationship Specialty Start Date End Date Jeremiah Martínez MD [address] [place] [address] PCP - General 02/25/17 Costume Shop Manager Relationship Specialty Start Date End Date Jeremiah Martínez MD [address] [facility] [address] [place] [address] PCP - General Family Medicine 11/17/22 Costume Shop Manager Relationship Specialty Start Date End Date Jeremiah Martínez MD [address] [place] [address] PCP - General 02/25/17 Costume Shop Manager Relationship Specialty Start Date End Date Jeremiah Martínez MD [address] [place] [address] PCP - General 02/25/17 Costume Shop Manager Relationship Specialty Start Date End Date Jeremiah Martínez MD [address] [place] [address] PCP - General 02/25/17 Costume Shop Manager Relationship Specialty Start Date End Date Jeremiah Martínez MD [address] [place] [address] PCP - General 02/25/17 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 Jeremiah Martínez MD Primary Care Provider Active Team Status: Inactive Member Role Status Dates Dr. Jeremiah Martínez MD Primary Care Provider Active Start: August 30, 2024 End: August 30, 2024 Dr. Jeremiah Martínez MD Referring Provider Active Start: August 30, 2024 End: August 30, 2024 Ana Gilman MED[employer] INSURANCE BILLER, MEDICAL INSURANCE BILLER-C Attending Provider Active Start: August 30, 2024 End: August 30, 2024 Team Status: Inactive Member Role Status Dates Dr. Jeremiah Martínez MD Primary Care Provider Active Start: September 23, 2024 End: September 23, 2024 Ana Gilman MEDICAL INSURANCE BILLER, MEDICAL INSURANCE BILLER-C Attending Provider Active Start: September 23, 2024 End: September 23, 2024 Ana Gilman MEDICAL INSURANCE BILLER, MEDICAL INSURANCE BILLER-C Referring Provider Active Start: September 23, 2024 [...] 2024 End: September 30, 2024 Ana Gilman MEDICAL INSURANCE BILLER, MEDICAL INSURANCE BILLER-C Attending Provider Active Start: September 30, 2024 End: September 30, 2024 Team Status: Inactive Member Role Status Dates Dr. Jeremiah Martínez MD Primary Care Provider Active Start: October 18, 2024 End: October 18, 2024 Ana Gilman MEDICAL INSURANCE BILLER, MEDICAL INSURANCE BILLER-C Attending Provider Active Start: October 18, 2024 End: October 18, 2024 Ana Gilman MEDICAL INSURANCE BILLER, MEDICAL INSURANCE BILLER-C Referring Provider Active Start: October 18, 2024 End: October 18, 2024 Team Status: Inactive Member Role Status Dates Dr. Jeremiah Martínez MD Primary Care Provider Active Start: November 08, 2024 End: November 08, 2024 Dr. Jeremiah Martínez MD Referring Provider Active Start: November 08, 2024 End: November 08, 2024 Ana Gilman MEDICAL INSURANCE BILLER, MEDICAL INSURANCE BILLER-C Attending Provider Active Start: November 08, 2024 End: November 08, 2024 Team Status: Inactive Member Role Status Dates Dr. Jeremiah Martínez MD Primary Care Provider Active Start: December 19, 2024 End: December 19, 2024 Ana Gilman MEDICAL INSURANCE BILLER, MEDICAL INSURANCE BILLER-C Attending Provider Active Start: December 19, 2024 End: December 19, 2024 Ana Gilman MEDICAL INSURANCE BILLER, MEDICAL INSURANCE BILLER-C Referring Provider Active Start: December 19, 2024 End: December 19, 2024 Costume Shop Manager Relationship Specialty Start Date End Date Jeremiah Martínez MD [facility] [address] [address] PCP - General Family Medicine 11/17/22 Costume Shop Manager Relationship Specialty Start Date End Date Jeremiah Martínez MD [facility] [address] [address] PCP - General Family Medicine 11/17/22 Costume Shop Manager Relationship Specialty Start Date End Date Jeremiah Martínez MD [address] [place] [id number] PCP - General 02/25/17 Costume Shop Manager Relationship Specialty Start Date End Date Jeremiah Martínez MD [facility] [address] [address] PCP - General Family Medicine 11/17/22 Team Status: Inactive Member Role Status Dates Dr. Jeremiah Martínez MD Primary Care Provider Active Start: February 10, 2025 End: February 10, 2025 Ana Gilman MEDICAL INSURANCE BILLER, MEDICAL INSURANCE BILLER-C Attending Provider Active Start: February 10, 2025 End: February 10, 2025 Ana Gilman MEDICAL INSURANCE BILLER, MEDICAL INSURANCE BILLER-C Referring Provider Active Start: February 10, 2025 End: February 10, 2025 Costume Shop Manager Relationship Specialty Start Date End Date Jeremiah Martínez MD [address] [place] [id number] PCP - General 02/25/17 Source Comments (unrecognize d section and content) In the event this informatio n is protected by the Federal Confidentiality of Alcohol and Drug Abuse Patient Records regulations: The Federal rules restrict any use of the information to criminally investigate or prosecute any alcohol or drug abuse patient.[facility] the event this information is protected by the Federal Confidentiality of Alcohol and Drug Abuse Patient Records regulations: The Federal rules restrict any use of the information to criminally investigate or prosecute any alcohol or drug abuse patient.[facility] the event this information is protected by the Federal Confidentiality of Alcohol and Drug Abuse Patient Records regulations: The Federal rules restrict any use of the information to criminally investigate or prosecute any alcohol or drug abuse patient.[facility] the event this information is protected by the Federal Confidentiality of Alcohol and Drug Abuse Patient Records regulations: The Federal rules restrict any use of the information to criminally investigate or prosecute any alcohol or drug abuse patient.[facility] the event this information is protected by the Federal Confidentiality of Alcohol and Drug Abuse Patient Records regulations: The Federal rules restrict any use of the information to criminally investigate or prosecute any alcohol or drug abuse patient.[facility] the event this information is protected by the Federal Confidentiality of Alcohol and Drug Abuse Patient Records regulations: The Federal rules restrict any use of the information to criminally investigate or prosecute any alcohol or drug abuse patient.[facility] the event this information is protected by the Federal Confidentiality of Alcohol and Drug Abuse Patient Records regulations: The Federal rules restrict any use of the information to criminally investigate or prosecute any alcohol or drug abuse patient.[facility] the event this information is protected by the Federal Confidentiality of Alcohol and Drug Abuse Patient Records regulations: The Federal rules restrict any use of the information to criminally investigate or prosecute any alcohol or drug abuse patient.[facility] Center[facility] the event this information is protected by the Federal Confidentiality of Alcohol and Drug Abuse Patient Records regulations: The Federal rules restrict any use of the information to criminally investigate or prosecute any alcohol or drug abuse patient.[facility] Center[facility] the event this information is protected by the Federal Confidentiality of Alcohol and Drug Abuse Patient Records regulations: The Federal rules restrict any use of the information to criminally investigate or prosecute any alcohol or drug abuse patient.[facility] Center[facility] the event this information is protected by the Federal Confidentiality of Alcohol and Drug Abuse Patient Records regulations: The Federal rules restrict any use of the information to criminally investigate or prosecute any alcohol or drug abuse patient.[facility] CenterIn the event this information is protected by the Federal Confidentiality of Alcohol and Drug Abuse Patient Records regulations: The Federal rules restrict any use of the information to criminally investigate or prosecute any alcohol or drug abuse patient.[facility] CenterIn the event this information is protected by the Federal Confidentiality of Alcohol and Drug Abuse Patient Records regulations: The Federal rules restrict any use of the information to criminally investigate or prosecute any alcohol or drug abuse patient.[facility] Center[facility] the event this information is protected by the Federal Confidentiality of Alcohol and Drug Abuse Patient Records regulations: The Federal rules restrict any use of the information to criminally investigate or prosecute any alcohol or drug abuse patient.[facility] Goals (unrecognized section and content) Goals may [...] BE BASED ON THE PRIMARY CLINICAL RECORDS. [employer] [facility]. provides no warranty or guarantee of the accuracy or completeness of information in this document.
== END | disposition home or self-care (01) ==
LOC: PSN 06:46
PROVIDERS: PCP Family Medicine; Referring Provider Nurse Practitioner Acute Care; Visit Provider Nurse Practitioner Acute Care
DX: J44.9 Chronic obstructive pulmonary disease, unspecified (principal)
CPT/HCPCS: 94060; 94726; 94729

== ENCOUNTER → 2025-03-17 | Outpatient (CLI) | payer MEDICARE, MEDICAID, SELFPAY ==
--- NOTE | 2025-03-17 09:00 | CT_ITS ---
PROCEDURE: CHEST WITHOUT CONTRAST 03/17/2025 REASON FOR EXAM: PULMONARY NODULES IN A SMOKER TECHNIQUE: Chest CT without contrast. Coronal and Sagittal reconstruction series were provided. One or more dose reduction techniques were used (e.g., Automated exposure control, adjustment of the mA and/or kV according to patient size, use of iterative reconstruction technique RADIATION DOSE SUMMARY: CTDlvol: 6.04 mGy DLP: 243.19 mGycm COMPARISON: Prior CT scan of the chest dated September 23, 2024. FINDINGS: Hardware: None Lymph nodes: Tiny benign-appearing mediastinal lymph nodes. Heart and Vasculature: The heart is nonenlarged. Coronary Artery Calcifications: Present Lungs and Airways: Advanced emphysematous changes are present. Multiple calcified granulomas in the right lung. These are unchanged. Pleura: No pleural effusion. Upper Abdomen: Unremarkable Bones: Degenerative changes of the thoracic spine. CT/Chest without Contrast IMPRESSION: Coronary artery calcification (CAC) is is present Emphysematous changes. Stable examination. Multiple calcified granulomas in t he right lung. Reading Location: [facility]
== END | disposition home or self-care (01) ==
LOC: CT 08:49
PROVIDERS: PCP Family Medicine; Referring Provider Nurse Practitioner Acute Care; Visit Provider Nurse Practitioner Acute Care
DX: R91.1 Solitary pulmonary nodule (principal)
CPT/HCPCS: 71250

== ENCOUNTER → 2025-08-29 | Outpatient (CLI) | payer MEDICARE, MEDICAID, SELFPAY ==
--- OUTSIDE RECORDS SUMMARY | 2025-08-29 20:09 | XMS RPT_ITS | CCD ---
Author Organization [facility] Care Team Providers Care Costumed Character Name Role Phone Jeremiah Martínez Primary Care [...] Provider Jeremiah Martínez MD Primary Care Provider [phone] Dr. Jeremiah Martínez Primary Care Provider Dr. Jeremiah Martínez Referring Provider Kalina HUMAN RESOURCES HR GENERALIST, HUMAN RESOURCES HR GENERALIST-C Ana Attending Provider Jeremiah Martínez MD Primary Care Provider Dr. Jeremiah Martínez MD Primary Care Provider Un available Dr. Jeremiah Martínez MD Referring Provider Unava ilable Kalina HUMAN RESOURCES HR GENERALIST-CAna Attending Provider Kalina HUMAN RESOURCES HR GENERALIST-CAna Referring Provider Dr. Vanessa Chowdhury MD Attending Provider Dr. Jeremiah Martínez MD Primary Care Provider Un available Dr. Jeremiah Martínez MD Referring Provider Unava ilable Kalina HUMAN RESOURCES HR GENERALIST-C, Ana Attending Provider Kalina HUMAN RESOURCES HR GENERALIST-CAna Referring Provider Dr. Jeremiah Martínez MD Primary Care Provider Un available Gilman HUMAN RESOURCES HR GENERALIST-C, Ana Attending Provider Dr. Jeremiah Martínez MD Referring Provider Unava ilable Gilman HUMAN RESOURCES HR GENERALIST, Ana Referring Unavailable Gilman HUMAN RESOURCES HR GENERALIST, Ana Attending Unavailable Gunning, Jeremiah Primary Care Unavailable Gilman HUMAN RESOURCES HR GENERALIST, Ana Referring Unavailable Gilman HUMAN RESOURCES HR GENERALIST, Ana Attending Unavailable Gunning, Jeremiah Primary Care Unavailable Vanessa Chowdhury Attending Unavailable Gunning, Jeremiah Primary Care Unavailable Gilman HUMAN RESOURCES HR GENERALIST, Ana Consulting Unavailable Gilman HUMAN RESOURCES HR GENERALIST, Ana Referring Unavailable Gunning, Jeremiah Primary Care Unavailable Dereck Abreu Attending Unavailable Gunning, Jeremiah Referring Unavailable Gilman HUMAN RESOURCES HR GENERALIST, Ana Attending Unavailable Gunning, Jeremiah Primary Care Unavailable Gunning, Jeremiah Referring Unavailable Gunning, Jeremiah Primary Care Unavailable Gilman HUMAN RESOURCES HR GENERALIST, Ana Attending Unavailable Gilman HUMAN RESOURCES HR GENERALIST, Ana Attending Unavailable Gunning, Jeremiah Referring Unavailable Gunning, Jeremiah Primary Care Unavailable Gilman HUMAN RESOURCES HR GENERALIST, Ana Attending Unavailable Gunning, Jeremiah Primary Care Unavailable Gunning, Jeremiah Referring Unavailable Trevor Issa Attending Unavailable Gilman HUMAN RESOURCES HR GENERALIST, Ana Attending Unavailable Gunning, Jeremiah Primary Care Unavailable Gunning, Jeremiah Referring Unavailable Gilman HUMAN RESOURCES HR GENERALIST, Ana Referring Unavailable Gilman HUMAN RESOURCES HR GENERALIST, Ana Attending Unavailable Gunning, Jeremiah Primary Care Unavailable Gilman HUMAN RESOURCES HR GENERALIST, Ana Attending Unavailable Gilman HUMAN RESOURCES HR GENERALIST, Ana Referring Unavailable Gunning, Jeremiah Primary Care Unavailable Gilman HUMAN RESOURCES HR GENERALIST, Ana Attending Unavailable Gilmna HUMAN RESOURCES HR GENERALIST, Ana Referring Unavailable Gunning, Jeremiah Primary Care Unavailable Gilman HUMAN RESOURCES HR GENERALIST, Ana Attending Unavailable Gilman HUMAN RESOURCES HR GENERALIST, Ana Referring Unavailable Gunning, Jeremiah Primary Care Unavailable Gilman HUMAN RESOURCES HR GENERALIST, Ana Attending Unavailable Gilman HUMAN RESOURCES HR GENERALIST, Ana Referring Unavailable Gunning, Jeremiah Primary Care Unavailable Gilman HUMAN RESOURCES HR GENERALIST, Ana Attending Unavailable Gilman HUMAN RESOURCES HR GENERALIST, Ana Referring Unavailable Gunning, Jeremiah Primary Care Unavailable Gilman HUMAN RESOURCES HR GENERALIST, Ana Attending Unavailable Gilman HUMAN RESOURCES HR GENERALIST, Ana Referring Unavailable Gunning, Jeremiah Primary Care Unavailable Gilman HUMAN RESOURCES HR GENERALIST, Ana Attending Unavailable Gunning, Jeremiah Primary Care Unavailable Gilman HUMAN RESOURCES HR GENERALIST, Ana Referring Unavailable Page FERNANDEZ, Jorge Unavailable Jeremiah Martínez MD Unavailable [phone] GUNNING, JEREMIAH Attending Unavailable GUNNING, JEREMIAH Referring Unavailable GUNNING, JEREMIAH Primary Care Unavailable GUNNING, JEREMIAH Primary Care Unavailable HARPAL CUEVAS Attending Unavailable GUNNING, JEREMIAH Primary Care Unavailable CUEVAS HARPAL Attending Unavailable GUNNING, JEREMIAH Primary Care Unavailable JOVAN MAE Attending Unavailable GUNNING, JEREMIAH Attending Unavailable GUNNING, JEREMIAH Referring Unavailable GUNNING, JEREMIAH Primary Care Unavailable CUEVAS, HARPAL Referring Unavailable GUNNING, JEREMIAH Primary Care Unavailable GUNNING, JEREMIAH Attending Unavailable GUNNING, JEREMIAH Referring Unavailable GUNNING, JEREMIAH Primary Care Unavailable MASIN, SERGIO Attending Unavailable MASIN, SERGIO Referring Unavailable GUNNING, JEREMIAH Primary Care Unavailable GUNNING, JEREMIAH Attending Unavailable GUNNING, JEREMIAH Referring Unavailable GUNNING, JEREMIAH Primary Care Unavailable MASIN, SERGIO Attending Unavailable MASIN, SERGIO Referring Unavailable GUNNING, JEREMIAH Primary Care Unavailable GUNNING, JEREMIAH Attending Unavailable GUNNING, JEREMIAH Referring Unavailable GUNNING, JEREMIAH Primary Care Unavailable GUNNING, JEREMIAH Attending Unavailable GUNNING, JEREMIAH Referring Unavailable GUNNING, JEREMIAH Primary Care Unavailable GOPI BESS Attending Unavailabl e GIDEON, SERGIO IBARRA Referring Unavailable GUNNING, JEREMIAH H Primary Care Unavailable GUNNING, JEREMIAH H Primary Care Unavailable FERREIRA, SONIA Attending Unavailable Allergies Allergy Classification Reported Allergen(s) Allergy Type Date of Onset Reaction(s) Facility Dihydrofolate Reductase Inhibitors (antibiotic) (1 source) Trimethoprim Drug Allergy 11-04-19 [facility] Doxycycline (1 source) Doxycycline Drug Allergy 01-21-20 24 Nausea And Vomiting [facility] Opioid Agonists (2 sources) Codeine Drug Allergy 04-15-20 06 Other (See Comments[facility] Penicillins (antibiotic) (2 sources) Penicillins Drug Allergy 04-15-20 06 Rash, Hives [facility] Quinolones (antibiotic) (3 sources) levoFLOXacin Drug Allergy 12-18-19 17 Swelling, Anaphylaxis [facility] Serotonin Reuptake Inhibitors (SSRIs) (1 source) Escitalopram Drug Allergy 12-17-19 23 Anaphylaxis [facility] Sulfonamides (antibiotic) (2 sources) Sulfonamides (Antibiotic) Drug Allergy 02-28-20 16 Swelling, Anaphylaxis [facility] Tetracyclines (antibiotic) (1 source) Tetracycline Drug Allergy 11-04-19 22 [facility] (20 sources) Codeine; Translations: [CODEINE] Drug Allergy 04-15-20 06 Other (See Comments), Chest pain [place], [place] Comment on above: HEART ATTACK SYMPTO MS (20 sources) levoFLOXacin; Translations: [LEVOFLOXACIN IN D5W] Drug Allergy 12-18-19 17 Swelling [place], [place] (14 sources) Penicillins; Translations: [PENICILLINS] Propensity to adverse reactions to drug 04-15-20 06 Rash [place], [place] (13 sources) Sulfonamides (Antibiotic) Propensity to adverse reactions to drug 02-28-20 16 Swelling [place], [place] (8 sources) Penicillins Propensity to adverse reactions 04-15-20 06 [facility] (20 sources) Sulfonamides (Antibiotic); Translations: [SULFA (SULFONAMIDE ANTIBIOTICS)] Drug Allergy 02-28-20 16 Anaphylaxis, Swelling [facility] (20 sources) Budesonide; Translations: [BUDESONIDE] Drug Allergy 11-04-19 22 Other: See Comments [facility] (20 sources) levoFLOXacin Drug Allergy 08-07-20 15 Anaphylaxis, Swelling [facility] (9 sources) Penicillins Allergy to substance 11-04-19 22 [facility] (9 sources) Sulfamethoxazole Drug Allergy 11-04-19 22 Anaphylaxis [facility] (20 sources) Tetracycline; Translations: [TETRACYCLINE] Drug Allergy 11-04-19 22 Vomiting [facility] (20 sources) Trimethoprim Drug Allergy 11-04-19 22 Anaphylaxis [facility] (20 sources) Budesonide Allergy to substance 11-04-19 22 [facility] (20 sources) Escitalopram; Translations: [ESCITALOPRAM] Drug Allergy 12-17-19 23 Anaphylaxis [facility] (20 sources) Penicillins Drug Allergy 04-15-20 06 Hives, Rash [facility] (20 sources) Doxycycline Drug Allergy 01-21-20 24 Nausea And Vomiting [facility] (11 sources) Penicillins Propensity to adverse reactions 04-15-20 06 [facility] (1 source) Budesonide Drug Allergy 08-30-20 24 [facility] (1 source) Codeine Drug Allergy 11-09-19 [facility] (1 source) levoFLOXacin Drug Allergy 11-09-19 25 [facility] (1 source) Penicillins Drug allergy (disorder) 11-09-19 25 [facility] (1 source) Sulfamethoxazole Drug Allergy 11-09-19 [facility] (1 source) Tetracycline Drug Allergy 11-09-19 25 [facility] (1 source) Trimethoprim Drug Allergy 11-09-19 25 [facility] (1 source) Penicillin G Drug Allergy 08-07-20 15 [facility] (1 source) Sulfacetamide Drug Allergy 08-07-20 [facility] Medications Current Medications Medication Drug Class(es) Dates Sig (Normalized) Sig (Original) acetaminophen 325 mg / oxyCODONE hydrochloride 5 mg oral tablet (20 sources) Opioid Agonist Start: 05-17-2025 End: 05-22-2025 take 1 tablet by mouth every six hours as needed for pain oxyCODONE-acetami nophen (Percocet) 5-325 MG tablet Indications: Rib pain on left side Take 1 tablet by mouth every 6 hours as needed for severe pain (7-10) for up to 5 days. 12 tablet 05/17/2025 05/22/2025 Active Start: 03-04-2022 End: 05-17-2025 take 1 tablet by mouth every four to six hours for pain oxyCODONE-acetaminophen (Percocet) 5-325 MG tablet take 1 tablet by mouth every 4 to 6 hours if needed FOR POST-OP PAIN WHILE AWAKE 03/04/2022 05/17/2025 Discontinued (Therapy completed) Start: 01-09-2021 End: 01-16-2021 Oxycodone-Acetaminophen (Per cocet) 2.5-325 mg tablet Discontinued 1 {tbl} PO Q8H as needed 0 January 09, 2021 12:00am January 16, 2021 [...] HOURS WHILE AWAKE October 23, 2020 1:00am COPD Start: 10-23-2020 End: 09-30-2024 Albuterol Sulfate (Proair Hf a) 90 mcg/actuation HFA aerosol inhaler Discontinued 2 NMA INHALATION EVERY 6 HOURS as needed for shortness of breath or wheezing 8.5 6 November 04, 2021 10:37am September 30, 2024 9:14am Start: 10-23-2020 End: 11-04-2021 take 1 puff(s) by inhalation every six hours Albuterol Sulfate (Proair Hfa) 90 mcg/actuation HFA aerosol inhaler Discontinued 2 PUFF INHALATION EVERY 6 HOURS January 09, 2021 12:00am November 04, 2021 10:38am take 2 puff(s) by in halation twice daily as needed albuterol sulfate HFA 90 mcg/actuation aerosol inhaler Inhale 2 puff using inhaler twice a day and as needed active Abigail Reeves AT [facility] Comment on above: inhale 2 puffs by mo [facility] and INTO THE LUNGS every 4 hours if needed for wheezing amLODIPine 10 mg oral tablet (20 sources) Dihydropyridine Calcium Channel Rachel Start: take 1 tablet by mouth once daily amLODIPine (Norvasc) 10 MG tablet Take 10 mg by mouth daily. 09/19/2022 Active Start: 06-11-2019 amLODIPine (NO RVASC) tablet 5 mg Start: 07-21-2018 End: 01-16-2021 take 1 tablet by mouth once daily Amlodipine (Norvasc) 10 mg tablet Active 10 mg PO DAILY January 09, 2021 12:00am Comment on above: Take 1 tablet by alexa every afternoon. aspirin 81 mg delayed release [...] MG tablet Every 24 hours. 11/25/2022 Active busPIRone hydrochloride 10 mg oral tablet (20 [...] oral tablet (20 sources) Muscle Relaxant Start: 10-23-2020 End: 01-16-2021 take 1 tablet by mouth three times daily as needed for muscle spasms Cyclobenzaprine 10 MG tablet Discontinued 10 mg PO 3 TIMES DAILY NEEDED as needed for MUSCLE SPASMS October 23, 2020 1:00am January 16, 2021 6:43am Start: 09-20-2018 take 1 tablet by alexa th at bedtime as needed Cyclobenzaprine 5 mg tablet Active 5 mg PO AT BEDTIME as needed August 30, 2024 1:00am take 1 tablet by alexa th twice daily as needed cyclobenzaprine (FLEXERIL) 5 mg tablet 1 tablet as needed Orally 2 times a day for 30 days Active Comment on above: 1 tablet as needed O rally 2 times a day for 30 days dexamethasone 6 mg oral tablet (13 sources) Corticosteroid Start: 10-14-19 End: 10-19-19 take [...] times daily 20 tablet 0 07/16/2018 Active escitalopram 10 mg oral tablet (20 sources) Serotonin Reuptake Inhibitor Start: 06-05-2021 End: 08-30-2024 escitalopram (Lexapro) 10 MG tablet 12/07/2022 Active fexofenadine hydrochloride 180 mg oral tablet (19 sources) Histamine-1 Receptor Antagonist Start: 04-15-2006 COOKIE [...] g/actuation spray,suspension Active 2 NMA INTRANASAL DAILY 16 3 November 04, 2021 1:00am Smoking greater than 40 pack years Nicotine dependence, cigarettes, uncomplicated Start: 11-04-2021 Fluticasone Pr opionate Active 2 [...] / vilanterol 0.025 mg/actuat dry powder inhaler (20 sources) Anticholinergic, Corticosteroid, beta2-Adrenergic Agonist Fluticasone-Umeclidi n-Vi lant (Trelegy Ellipta) 100-62.5-25 MCG/ACT aerosol powder 1 puff Every 24 hours. Active ZWRZKGISNAS-QHDWOQFWU-LXAT NT (1 source) Trelegy Ellipta 200 mcg-62.5 mcg-25 mcg powder for inhalation active Abigail Reeves AT [facility] Vmmoxrwptqp-Lvtuwkbcg-Wzfr nter (11 sources) Start: 03-23-2025 Nknmijoizzs-Vybfeowyd-Wu lanter (Trelegy Ellipta) 200-62.5-25 mcg blister with device Active 1 NMA INHALATION DAILY 60 March 23, 2025 9:07am Start: 09-30-2024 End: 03-23-2025 Acwcmtkifye-Xwunzajhj-Nanoxc er (Trelegy Ellipta) 200-62.5-25 mcg blister with device Discontinued 1 NMA INHALATION DAILY 60 September 30, 2024 1:00am March 23, 2025 9:07am Start: 09-30-2024 Fluticasone-Um eclidin-Vilanter (Trelegy Ellipta) 200-62.5-25 mcg blister with device Active 1 NMA INHALATION DAILY 60 September 30, 2024 1:00am Start: 09-30-2024 Fluticasone-Um eclidin-Vilanter (Trelegy Ellipta) 200-62.5-25 mcg blister with device Active 1 NMA INHALATION DAILY 60 September 30, 2024 1:00am Start: 03-25-2024 End: 08-30-2024 Mgkkwgrewdt-Mquzprjks-Bwpxks er (Trelegy Ellipta) 200-62.5-25 mcg blister with device Discontinued 1 NMA INHALATION DAILY 60 March 25, 2024 12:00am August 30, 2024 3:14pm Mass of upper lobe of left lung Other nonspecific abnormal finding of lung field Start: 03-25-2024 End: 08-30-2024 Oaszwslbmfy-Nngmkwlvp-Sjdtnn er (Trelegy Ellipta) 200-62.5-25 mcg blister with device Discontinued 1 NMA INHALATION DAILY March 25, 2024 12:00am August 30, 2024 3:14pm 12 hr guaiFENesin 600 mg extended release oral tablet (20 sources) take 1 tablet by mouth every twelve hours as needed guaiFENesin (Mucinex) 600 MG 12 hr tablet Take 1 tablet by mouth every 12 hours as needed. Active hydroCHLOROthiazide 12.5 mg / lisinopril 10 mg oral tablet (20 sources) Thiazide Diuretic, Angiotensin Converting Enzyme Inhibitor Start: End: take 1 tablet by mouth once daily lisinopril-hydroCH LOROthiazide 10-12.5 MG tablet Take 1 tablet by mouth daily. 10/10/2024 Active hydrOXYzine hydrochloride 10 mg oral tablet (20 sources) Antihistamine Start: take 1 tablet by mouth twice daily as needed Hydroxyzine Hcl 10 mg tablet Active 10 mg PO TWICE A DAY as needed March 23, 2025 12:00am Start: 11-12-2022 take 3 tablets by mo ut at bedtime hydrOXYzine HCl (Atarax) 25 MG tablet take 3 tablets by mouth at bedtime if needed 11/12/2022 Active loratadine 10 mg oral tablet (20 sources) take 1 tablet by mouth once daily loratadine (Claritin) 10 MG tablet Take 1 tablet by mouth daily. Active meloxicam 7.5 mg oral tablet (1 source) Nonsteroidal Anti-inflammatory Drug meloxicam 7.5 mg tablet Take 1 once a day active Abigail Reeves AT [facility] mirtazapine 7.5 mg oral tablet (1 source) mirtazapine 7.5 mg tablet Take 1 once a day active Abigail Reeves AT [facility] omeprazole 20 mg delayed release oral capsule (20 sources) Proton Pump Inhibitor Start: End: take 1 capsule by mouth once daily omeprazole (PRILOSEC) 20 mg capsule Indications: Postprandial epigastric pain take 1 capsule by mouth once daily ON AN EMPTY STOMACH AT LEAST 30 MINUTES BEFORE EATING 30 capsule 2 03/15/2024 Active Start: 07-06-2023 take 1 capsule by mo [facility] once daily omeprazole (PRILOSEC) 20 mg capsule [...] on above: Take 1 capsule by mo ut once daily. On empty stomach at least [...] proximal end of right femur, initial encounter ([facility]) Take 1 tablet by mouth every 6 hours as needed for Pain for up to 3 days. 28 tablet 0 06/12/2019 06/15/2019 Active Start: 06-11-2019 oxyCODONE (KENZIE ICODONE) immediate release tablet 5 mg pseudoephedrine hydrochloride 30 mg oral tablet (20 sources) alpha-Adrenergic Agonist Start: 10-14-2024 take 1 [...] by mouth at bedtime 08/28/2022 Active Roflumilast (5 sources) Phosphodiesterase 4 Inhibitor Start: 11-08-2024 take 1 tablet by mouth once daily Roflumilast (Daliresp) 500 mcg tablet Active 500 ug PO DAILY 06 08November 08, 2024 1:00am Lung nodule Solitary pulmonary nodule Start: 11-08-2024 take 1 tablet by alexa once daily Roflumilast (Daliresp) 500 mcg tablet Active 500 ug PO DAILY November 08, 2024 1:00am rosuvastatin calcium 10 mg oral tablet (5 sources) HMG-CoA Reductase Inhibitor Start: 11-08-2024 Rosuvastatin [...] Active vitamin b12 0.1 mg oral tablet (18 sources) Vitamin B12 take 1 tablet by mouth once daily cyanocobalamin (VITAMIN B-12) 100 mcg tab Take 100 mcg by mouth once daily. Active Comment on above: Take 100 mcg by mout h once daily. Completed/Discontinued Medications Medication Drug Class(es) Dates Sig (Normalized) Sig (Original) acetaminophen 500 mg oral tablet (20 sources) Start: 01-18-2021 End: 01-18-2021 acetaminophen (TYLENOL) tablet 1,000 mg Start: 06-11-2019 acetaminophen (TYLENOL) tablet 1,000 mg acetaminophen (T YLENOL) 325 mg cap Take by mouth. Active Comment on above: Take by mouth. acetaminophen 325 mg / HYDROcodone bitartrate 5 mg oral tablet (20 sources) Opioid Agonist Start: 05-14-2025 End: 05-14-2025 1 tablet, Oral, Once, On Thu05/14/25 at 0415, For 1 dose, Maximum dose of acetaminophen is 4000 mg from all sources in 24 hours. Start: 08-13-2022 take 1 tablet by alexa every four to six hours for pain HYDROcodone-acetaminophen ([place]) 5-325 MG tablet take 1 tablet by mouth every 4 to 6 hours WHILE AWAKE if needed for POST OP PAIN for 3 days 08/13/2022 Active albuterol 0.833 mg/ml / ipratropium bromide 0.167 mg/ml inhalation solution (20 sources) Anticholinergic, beta2-Adrenergic Agonist Start: 10-14-2024 End: [...] tablet 5 05/30/2019 06/11/2019 Discontinued (LIST CLEANUP) benzonatate 100 mg oral capsule (9 sources) Non-narcotic Antitussive Start: 01-09-2021 End: 03-23-2025 Benzonatate (Tessalon Perles) 100 mg capsule Discontinued 100 mg PO 2 to 3 times per day as needed January 09, 2021 12:00am March 23, 2025 8:50am bisacodyl 10 mg rectal suppository (9 sources) Stimulant Laxative Start: 01-09-2021 End: 01-16-2021 Bisacodyl (Dulcolax (Bisacodyl)) 10 mg suppository Discontinued 10 mg RC DAILY as needed January 09, 2021 12:00am January 16, 2021 6:42am budesonide 0.5 mg/ml inhalation suspension (9 sources) Corticosteroid Start: 02-26-2021 End: 11-04-2021 take 1 mg by inhalation twice daily Budesonide 1 mg/2 mL suspension for nebulization Discontinued 1 mg INHALATION TWICE A DAY 60 6 February 26, 2021 12:00am November 04, 2021 10:38am Chronic obstructive pulmonary disease, unspecified Budesonide-Formote rol (9 sources) Corticosteroid, beta2-Adrenergic Agonist Start: 01-09-2021 End: [...] mL/hr, Administer over 1 Hours, Once, On 2/7/25 at 1000, For 1 dose carvedilol 3.125 [...] one tab by mout h each evening doxycycline hyclate 100 mg oral capsule (20 sources) Tetracycline-clas s Drug Start: 11-08-2024 End: 03-23-2025 Doxycycline Hyclate 100 mg capsule Discontinued mg PO November 08, 2024 1:00am March 23, 2025 8:50am Start: 12-20-2021 End: 10-10-2024 take 1 tablet by mouth twice daily doxycycline (Vibra-Tabs) 100 MG tablet Take 100 mg by mouth 2 times daily. 12/20/2021 Active 12 hr fexofenadine hydrochloride 60 mg / pseudoephedrine hydrochloride 120 mg extended release oral tablet (9 sources) alpha-Adrenergic Agonist, Histamine-1 Receptor Antagonist Start: 01-09-2021 End: 01-16-2021 take 1 tablet by mouth every twelve hours as needed Fexofenadine-Pseudoephedrine (Cookie-D 12 Hour) 60-120 mg tablet extended release 12 hr Discontinued 1 {tbl} PO Q12H as needed January 09, 2021 12:00am January 16, 2021 6:43am gadobutrol (Gadavist) injection 5.6 mL (2 sources) Start: 05-13-2024 End: 05-13-2024 5.6 mL (rounded from 5.5 mL) , IntraVENous, IMG once PRN, contrast, Starting on Thu05/13/24 at 0902, For 1 dose gadopiclenol (Vueway) injection 5.5 mL (2 sources) Start: 12-08-2024 End: 12-08-2024 take 5.5 mL intravenousl y once as needed 5.5 mL, IntraVENous, IMG once PRN, contrast, Starting on Radha 12/08/24 at 0912, For 1 dose ibuprofen 400 mg oral tablet (20 sources) Nonsteroidal Anti-inflammatory Drug Start: 06-11-2019 End: 06-11-2019 ibuprofen (ADVIL;MOTRIN) tablet 400 mg Start: 04-04-2017 take 1 tablet by alexa th every eight hours as needed for pain ibuprofen (ADVIL;MOTRIN) 600 MG tablet Take 1 tablet by mouth every 8 hours as needed for Pain 20 tablet 0 04/04/2017 Active Start: 12-26-2016 ADVIL CAPSULE Take as needed as directed active Abigail Reeves AT [facility] take 1 tablet by alexa th every six hours as needed ibuprofen (ADVIL) 200 mg tablet Take 200 mg by mouth every 6 hours as needed. Active Comment on above: Take 200 mg by mouth every 6 hours as needed. iopamidol (Isovue-370) 76 % injection 75 mL (2 sources) Start: End: take 75 mL intravenously once as needed 75 mL, IntraVENous, IMG once PRN, contrast, Starting on Thu05/14/25 at 0344, For 1 dose lidocaine 0.04 mg/mg medicated patch (4 sources) Antiarrhythmic, Amide Local Anesthetic Start: End: 1 patch, TransDERmal, Administer over 12 Hours, Once, On Thu05/17/25 at 2230, For 1 dose, Apply patch to left ribs. Patch may remain in place for up to 12 hours in any 24 hour period. Start: 05-17-2025 apply 1 dose transde rmal route once daily, then apply 1 dose transdermal route every twelve hours lidocaine (Lidoderm) 5 % patch Apply 1 patch topically daily. Remove & discard patch within 12 hours or as directed by 10 patch 05/17/2025 Active 1 ml LORazepam 2 mg/ml injection (2 sources) Benzodiazepine Start: 06-11-2019 End: 06-11-2019 LORazepam (ATIVAN) injection 0.5 mg Start: 06-11-2019 End: 06-11-2019 LORazepam (ATIVAN) 2 MG/ML i njection meclizine hydrochloride 25 mg oral tablet (20 sources) Antiemetic Start: 11-08-2024 End: 03-23-2025 Meclizine 25 mg tablet Discontinued mg PO November 08, 2024 1:00am March 23, 2025 8:50am montelukast 10 mg oral tablet (20 sources) Leukotriene Receptor Antagonist Start: 08-30-2024 End: 03-23-2025 take 1 tablet by mouth once daily Montelukast 10 mg tablet Discontinued 10 mg PO daily August 30, 2024 1:00am March 23, 2025 8:50am Start: 11-25-2022 montelukast (S ingulair) 10 MG tablet Every 24 hours. 11/25/2022 Active Start: 10-23-2020 End: 01-16-2021 take 1 tablet by mouth once daily Montelukast 10 MG tablet Discontinued 10 mg PO DAILY October 23, 2020 1:00am January 16, 2021 6:43am 1 ml morphine sulfate 4 mg/ml cartridge (7 sources) Opioid Agonist Start: 05-17-2025 End: 05-17-2025 4 mg, IntraVENous, Once, On Thu05/17/25 at 2230, For 1 dose Start: 12-01-2021 End: 12-01-2021 morphine sulfate (PF) inject ion 4 mg Start: 06-11-2019 End: 06-11-2019 morphine [...] CLEANUP) 2 ml ondansetron 2 mg/ml injection (3 sources) Serotonin-3 Receptor Antagonist Start: 05-17-2025 End: 05-17-2025 4 mg, IntraVENous, Once, On Thu05/17/25 at 2230, For 1 dose Start: 06-11-2019 End: 06-11-2019 ondansetron (ZOFRAN) injecti on 4 mg predniSONE 20 mg oral tablet (19 sources) Start: 05-17-2025 End: 05-17-2025 take 40 mg by mouth once 40 mg, Oral, Once, On Thu05/17/25 at 2335, For 1 dose Start: 05-17-2025 End: 05-21-2025 take 4 tablets by mouth once daily predniSONE (Deltasone) 10 MG tablet Take 4 tablets (40 mg) by mouth daily for 4 days. 16 tablet 05/17/2025 05/21/2025 Active Start: 11-08-2024 End: 03-23-2025 Prednisone 20 mg tablet Discontinued mg PO November 08, 2024 1:00am March 23, 2025 8:49am Start: 09-30-2024 End: 10-05-2024 take 3 tablets by mouth once daily at mealtime Prednisone 20 mg tablet Discontinued 60 mg PO daily 15 5 0 September 30, 2024 1:00am October 04, 2024 1:00am October 05, 2024 1:09am administer with food or milk Start: 03-25-2024 End: 08-30-2024 Prednisone 10 mg tablet Discontinued 10 mg PO daily 30 0 March 25, 2024 12:00am August 30, 2024 3:14pm Mass of upper lobe of left lung Other nonspecific abnormal finding of lung field take 4 tabs for three days, then 3 tabs for three days, then 2 tabs for three days, then 1 tab for 3 days raNITIdine 150 mg oral tablet (2 sources) Histamine-2 Receptor Antagonist Start: 04-15-2006 End: 04-16-2023 ZANTAC 150 MG TAB Indications: Urticaria, unspecified , Angioneurotic edema not elsewhere classified Take one(1) tablet two(2) times daily. 60 3 04/15/2006 04/16/2023 Discontinued (Discontinued by Patient) Comment on above: Take one(1) tablet t wo(2) times daily. sodium chloride 0.111 meq/ml nasal spray (10 sources) Start: 10-23-2020 End: 01-16-2021 Sodium Chloride [...] unspecified with intoxication, uncomplicated] Episodic Anxiety disorders (18 sources) Panic disorder; Translations: [Panic disorder [episodic paroxysmal anxiety]] 01-09-2021 Chronic Cataract (9 sources) Cataract; Translations: [Unspecified cataract] 01-09-2021 Chronic Chronic obstructive pulmonary disease and bronchiectasis (20 sources) Asthma-chronic obstructive pulmonary disease overlap syndrome; Translations: [Chronic obstructive pulmonary disease, unspecified] Onset: 07-23-2024 02-26-2021 Chronic Diabetes mellitus without complication (9 sources) Type 2 diabetes mellitus; Translations: [Type 2 diabetes mellitus without complications] 01-09-2021 Chronic Disorders of lipid metabolism (9 sources) Hyperlipidemia; Translations: [Hyperlipidemia, unspecified] 01-09-2021 Chronic E Codes: Fall (7 sources) Fall; Translations: [Unspecified fall, initial encounter] Onset: 12-01-2021 Episodic Essential hypertension (20 sources) Hypertensive disorder; Translations: [Essential (primary) hypertension] Onset: 05-30-2019 05-30-2019 Chronic External cause codes: Fall (1 source) Fall on same level; Translations: [Fall from ground level] Fever of unknown origin (1 source) Fever, unspecified; Translations: [Fever, unspecified] Onset: 02-16-2025 Episodic Immunizations and screening for infectious disease (9 sources) Exposure to sexually transmissible disorder; Translations: [Contact with and (suspected) exposure to infections with a predominantly sexual mode of transmission] 01-09-2021 Episodic Intestinal obstruction without hernia (9 sources) Paralytic ileus; Translations: [Paralytic ileus] 01-09-2021 Episodic Joint disorders and dislocations; trauma-related (2 sources) Loose body in knee, right knee; Translations: [Loose body in knee, right knee] Onset: 09-20-2021 Chronic Malaise and fatigue (11 sources) Fatigue; Translations: [Other fatigue] 01-09-2021 Episodic Mood disorders (9 sources) Depressive disorder; Translations: [Depression] 01-09-2021 Chronic Open wounds of head; neck; and trunk (1 source) Scalp laceration; Translations: [Laceration without foreign body of scalp, initial encounter] Episodic Osteoarthritis (14 sources) Unspecified osteoarthritis, unspecified site; Translations: [Unilateral primary osteoarthritis, right knee] Onset: 08-07-2015 Chronic Other acquired deformities (9 sources) Incompetence of nasal valve; Translations: [Acquired deformity of nose] 10-30-2020 Episodic Other and ill-defined cerebrovascular disease (1 source) Cerebral aneurysm, nonruptured; Translations: [Cerebral aneurysm, nonruptured (HCC)] Onset: 01-02-2025 Chronic Other connective tissue disease (9 sources) Bilateral cramp of muscle of lower limbs; Translations: [Cramp and spasm] 01-09-2021 Episodic Other connective tissue disease (9 sources) Fibromyositis; Translations: [Fibromyalgia] 01-09-2021 Episodic Other connective tissue disease (1 source) Quadriceps weakness; Translations: [Muscle weakness (generalized)] Episodic Other connective tissue disease (1 source) Disorder of tendon; Translations: [Unspecified disorder of synovium and tendon, right thigh] Episodic Other gastrointestinal disorders (9 sources) Constipation; Translations: [Constipation, unspecified] 01-09-2021 Episodic Other gastrointestinal disorders (1 source) Altered bowel function; Translations: [Change in bowel habit] 04-16-2023 Episodic Other injuries and conditions due to external causes (4 sources) Injury of head; Translations: [Unspecified injury of head, initial encounter] Episodic Other injuries and conditions due to external causes (2 sources) Unspecified injury of head, initial encounter; Translations: [Unspecified injury of head, initial encounter] Onset: 05-14-2025 Episodic Other lower respiratory disease (18 sources) Nodule of lung; Translations: [Solitary pulmonary nodule] 02-26-2021 Episodic Other lower respiratory disease (18 sources) Hypoxia; Translations: [Hypoxemia] 10-30-2020 Episodic Other lower respiratory disease (1 source) Hypoxemia; Translations: [Hypoxemia] 11-27-2022 Episodic Other lower respiratory disease (10 sources) Lung mass; Translations: [Other nonspecific abnormal finding of lung field] 12-01-2023 Episodic Other lower respiratory disease (1 source) Dyspnea; Translations: [Shortness of breath] 06-21-2024 Episodic Other lower respiratory disease (1 source) Solitary pulmonary nodule; Translations: [Solitary pulmonary nodule] Onset: 03-21-2025 Episodic Other lower respiratory disease (4 sources) Rib pain; Translations: [Pleurodynia] 05-17-2025 Episodic Other lower respiratory disease (2 sources) Pleurodynia; Translations: [Pleurodynia] Onset: 05-17-2025 Episodic Other nervous system disorders (2 sources) Other chronic pain; Translations: [Other chronic pain] Onset: 12-01-2021 Chronic Other nervous system disorders (11 sources) Carpal tunnel syndrome; Translations: [Carpal tunnel syndrome, unspecified upper limb] Onset: 05-12-2025 01-09-2021 Chronic Other nervous system disorders (7 sources) Polyneuropathy; Translations: [Polyneuropathy, unspecified] Onset: 04-07-2025 04-07-2025 Chronic Other nervous system disorders (2 sources) Lesion of ulnar nerve, left upper limb; Translations: [Lesion of ulnar nerve] Onset: 05-12-2025 05-12-2025 Chronic Other nervous system disorders (2 sources) Lesion of ulnar nerve, right upper limb; Translations: [Lesion of ulnar nerve] Onset: 05-12-2025 05-12-2025 Chronic Other nervous system disorders (2 sources) Ulnar nerve entrapment at wrist; Translations: [Lesion of ulnar nerve, unspecified upper limb] Onset: 05-12-2025 05-12-2025 Chronic Other nervous system disorders (2 sources) Lesion of ulnar nerve, bilateral upper limbs; Translations: [Lesion of ulnar nerve] Onset: 05-12-2025 05-12-2025 Chronic Other nervous system disorders (1 source) Lesion of ulnar nerve; Translations: [Lesion of ulnar nerve, left upper limb] Onset: 08-07-2015 08-07-2015 Chronic Other nervous system disorders (1 source) Polyneuropathy, unspecified; Translations: [Polyneuropathy, unspecified] Onset: 04-07-2025 Chronic Other nervous system disorders (9 sources) Abnormal sensation; Translations: [Other disturbances of skin sensation] 01-09-2021 Episodic Other non-traumatic joint disorders (12 sources) Shoulder pain; Translations: [Pain in unspecified [...] limb] 03-18-2023 Episodic Other upper respiratory disease (9 sources) Allergic rhinitis; Translations: [Allergic rhinitis, unspecified] 01-09-2021 Chronic Other upper respiratory disease (9 sources) Hypertrophy of nasal turbinates; Translations: [Hypertrophy of nasal turbinates] 10-30-2020 Episodic Other upper respiratory disease (9 sources) Polyp of nasal cavity and/or nasal sinus; Translations: [Nasal polyp, unspecified] 10-30-2020 Episodic Other upper respiratory disease (9 sources) Deviated nasal septum; Translations: [Deviated nasal septum] 10-30-2020 Episodic Other upper respiratory infections (16 sources) Chronic pansinusitis; Translations: [Chronic pansinusitis] 10-30-2020 Chronic Residual codes; unclassified (7 sources) Daytime hypersomnia; Translations: [Hypersomnia, unspecified] 11-08-2024 Chronic Residual codes; unclassified (2 sources) Hypersomnia, unspecified; Translations: [Hypersomnia, unspecified] Onset: 11-08-2024 Chronic Residual codes; unclassified (9 sources) Insomnia; Translations: [Insomnia, unspecified] 01-09-2021 Episodic Rheumatoid arthritis and related disease (2 sources) Juvenile arthritis, unspecified, right knee; Translations: [Juvenile arthritis, unspecified, right knee] Onset: 09-20-2021 Chronic Skull and face fractures (1 source) Closed fracture of nasal bones; Translations: [Closed fracture of nasal bone, initial encounter] Episodic Spondylosis; intervertebral disc disorders; other back problems (9 sources) Degeneration of cervical intervertebral disc; Translations: [...] Chronic Comment on above: currently 1/2 ppd Superficial injury; contusion (4 sources) Contusion of left front wall of thorax, initial encounter; Translations: [Contusion of chest wall] Onset: 05-14-2025 05-14-2025 Episodic Viral infection (9 sources) Herpes simplex; Translations: [Herpesviral infection, unspecified] 01-09-2021 Episodic Past or Other Problems Problem Classification Problem Date Documented Da te Episodic/Chronic Allergic reactions (8 sources) Allergy status to sulfonamides status; Translations: [Allergy status to penicillin] Onset: 12-01-2021 Episodic Blindness and vision defects (1 source) Unspecified visual disturbance; Translations: [Visual disturbance] Onset: 12-30-2024 Episodic Conditions associated with dizziness or vertigo (8 sources) Dizziness and giddiness; Translations: [Dizziness and giddiness] Onset: 06-11-2022 Episodic Coronary atherosclerosis and other heart disease (2 sources) Coronary angioplasty status; Translations: [Coronary angioplasty status] Onset: 12-01-2021 Episodic Fracture of lower limb (3 sources) Closed fracture metatarsal neck ; Translations: [Fracture of unspecified metatarsal bone(s), left foot, initial encounter for closed fracture] Onset: 11-19-2017 07-21-2018 Episodic Fracture of neck of femur (hip) (20 sources) Closed fracture proximal femur, intertrochanteric, two part ; Translations: [Closed fracture of hip] Onset: 06-11-2019 06-11-2019 Episodic Fracture of upper limb (8 sources) Closed fracture of right wrist; Translations: [Fracture of unspecified carpal bone, right wrist, initial encounter for closed fracture] Onset: 12-26-2016 Episodic Fracture of upper limb (2 sources) Fracture of proximal phalanx of finger; Translations: [Displaced fracture of proximal phalanx of unspecified finger, initial encounter for closed fracture] Onset: 09-20-2018 09-20-2018 Episodic Joint disorders and dislocations; trauma-related (2 sources) Complex tear of medial meniscus, current injury, right knee, initial encounter; Translations: [Complex tear of medial mensc, current injury, r knee, init] Onset: 09-20-2021 Episodic Nutritional deficiencies (7 sources) Cachexia; Translations: [Cachexia] Onset: 09-30-2024 09-30-2024 Episodic Other aftercare (2 sources) Other terminal operator (current) drug therapy; Translations: [Other fci (current) drug therapy] Onset: 12-01-2021 Episodic Other and ill-defined cerebrovascular disease (11 sources) Cerebral arterial aneurysm; Translations: [Cerebral aneurysm, nonruptured] Onset: 01-02-2025 Resolved: 03-06-2025 01-02-2025 Chronic Other and unspecified benign neoplasm (2 sources) 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; Translations: [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] Onset: 09-20-2021 Episodic Other bone disease and musculoskeletal deformities (2 sources) Chondromalacia, right knee; Translations: [Chondromalacia, right knee] Onset: 09-20-2021 Episodic Other bone disease and musculoskeletal deformities (1 source) Osteopenia; Translations: [Other specified disorders of bone density and structure, unspecified site] Onset: 05-06-2022 05-07-2022 Episodic Other connective tissue disease (2 sources) Pain in left hand; Translations: [Pain in left hand] Onset: 12-01-2021 Episodic Other connective tissue disease (1 source) [...] [Shortness of breath] Onset: 09-08-2024 Episodic Other nervous system disorders (1 source) Poor balance; Translations: [Other abnormalities of gait and mobility] Onset: 05-06-2022 05-07-2022 Episodic Other nervous system disorders (1 source) Anesthesia of skin; Translations: [Anesthesia of skin] Onset: 01-31-2022 05-12-2025 Episodic Other non-traumatic joint disorders (2 sources) Pain in right wrist; Translations: [Pain in right wrist] Onset: 12-01-2021 Episodic Other screening for suspected conditions (not mental disorders or infectious disease) (20 sources) Thallium stress test abnormal; Translations: [Abnormal result of other cardiovascular function study] Onset: 05-30-2019 05-30-2019 Episodic Other upper respiratory infections (10 sources) Inflammatory disorder of upper respiratory tract; Translations: [Acute upper respiratory infection, unspecified] Onset: 10-14-2024 10-14-2024 Episodic Otitis media and related conditions (14 sources) Otitis media; Translations: [Otitis media, unspecified, unspecified ear] Onset: 05-23-2024 01-09-2021 Episodic Pleurisy; pneumothorax; pulmonary collapse (11 sources) Pneumothorax; Translations: [Pneumothorax, unspecified] Onset: 11-04-2024 11-04-2024 Episodic Residual codes; unclassified (2 sources) Edema, unspecified; Translations: [Edema, unspecified] Onset: 07-12-2021 Episodic Residual codes; unclassified (10 sources) Tobacco user; Translations: [Tobacco use] Onset: 01-31-2022 01-09-2021 Episodic Screening and history of mental health and substance abuse codes (12 sources) Tobacco use and exposure - finding; Translations: [Personal history of nicotine dependence] Onset: 01-02-2025 01-02-2025 Episodic Unclassified (1 source) Abnormal results of function studies of other organs and systems 05-13-2024 Results Test Name Value Interpretation Reference Range Facility [facility] 06-13-2025 CNPN Telephone [facility] SULLY PERDOMO ([id number]) 1955 F Date Time Provider Department 06/13/[address] [facility] During your visit today, we recorded the following information about you: Gayathri Kimble RN 06/13/2025 10:33 AM Signed Faxed [facility] @ [phone] to push cervical imaging. CT-05/14/2025. MRI 04/28/2025 and XR Cerv/[place]- 03/03/2025. Confirmation received. Allergies As of Date: 06/13/2025 Noted Allergy Reaction ESCITALOPRAM 12/16/2022 10 - [...] MA - Fully Assessed Prescriptions as of 06/13/2025 - omeprazole (PRILOSEC) 20 mg capsule take [...] Ferrari RN Problem List As Of Date 06/13/2025 Noted Resolved Cerebral aneurysm, nonruptured (HCC) [I67.1] 01/02/2025 03/06/2025 Personal history of tobacco use [Z87.891] 01/02/2025 Nicotine dependence, cigarettes, uncomplicated *01/02/2025 Encounter Status:Closed by GAYATHRI KIMBLE on 06/13/25 Normal [facility] 36on 05-18-2025 36 Needs appointment Normal [facility] BASIC METABOLIC PANELon 05-08 Anion gap [Moles/Vol] 9 mmol/L Normal 3-13 [facility] Comment on above: Performed By: #### L 15, [id number] ####Heart Doctor: ANA HIGGINS ([id number])[facility] [employer]TMAN (SWRLAB)[address] [place] [address] Calcium [Mass/Vol] 9.1 mg/dL Normal 8.8-10.0 [facility] Comment on above: Performed By: #### L 15, [id number] ####Heart Doctor: ANA HIGGINS ([id number])[facility] VICKI RITTMAN (SWRLAB)[address] [place] [address] [place] Chloride [Moles/Vol] 107 mmol/L Normal 98-[address] [facility] Comment on above: Performed By: #### L AB15, [id number] ####Heart Doctor: ANA HIGGINS ([id number])[facility] CASTREJONTMAN (SWRLAB)[address] [place] [address] CO2 [Moles/Vol] 25 mmol/L Normal 23-31 [facility] Comment on above: Performed By: #### L AB15, [id number] ####Heart Doctor: ANA HIGGINS ([id number])[facility]US[facility] COHEN RITTMAN (SWRLAB)[address] [place] [address] Creatinine [Mass/Vol] 0.63 mg/dL Normal 0.57-1.11 [facility] Comment on above: Performed By: #### L AB15, [id number] ####Heart Doctor: ANA HIGGINS ([id number])[facility] COEHN RITTMAN (SWRLAB)[address] [place] [address] GLOMERULAR FILTRATION RATE ML/MIN/1.73 SQ M.PREDICTED >90.0 Normal >60.0 [facility] Comment on above: Result Comment: Calc ulation based on the Chronic Kidney Disease Epidemiology Collaboration (CKD-EPI) equation refit without adjustment for race Performed By: #### L AB15, [id number] ####Heart Doctor: ANA HIGGINS ([id number])[facility]US[facility] COHEN RITTMAN (SWRLAB)[address] [place] [address] [place] Glucose [Mass/Vol] 107 mg/dL Normal 82-115 [facility] Comment on above: Performed By: #### L AB15, [id number] ####Heart Doctor: ANA HIGGINS ([id number])[facility] VICKI RITTMAN (SWRLAB)[address] [place] [address] [place] Potassium [Moles/Vol] 4.1 mmol/L Normal 3.5-5.1 [facility] Comment on above: Result Comment: [facility] potassium values may be up to 0.5 mmol/L lower than serum values. Performed By: #### L AB15, [id number] ####Heart Doctor: ANA HIGGINS ([id number])[facility] VICKI LUCÍATMAN (SWRLAB)[address] [place] [address] Sodium [Moles/Vol] 141 mmol/L Normal 136-145 [facility] Comment on above: Performed By: #### L AB15, [id number] ####Heart Doctor: ANA HIGGINS ([id number])[facility] VICKI CASTREJONTMAN (SWRLAB)[address] [place] [address] Urea nitrogen [Mass/Vol] 10 mg/dL Normal 9-23 [facility] Comment on above: Performed By: #### Sandra AB15, [id number] ####Heart Doctor: ANA HIGGINS ([id number])[facility] LUCÍATMAN (SWRLAB)[address] [place] [address] Basic metabolic 1998 panelon 05-17-2025 Anion gap [Moles/Vol] 9 mmol/L 3 - 13 mmol/L [facility] Calcium [Mass/Vol] 9.1 mg/dL 8.8 - 10. 0 mg/dL [facility] Chloride [Moles/Vol] 107 mmol/L 98 - 10 7 mmol/L [facility] CO2 [Moles/Vol] 25 mmol/L 23 - 31 mmol/L [facility] Creatinine [Mass/Vol] 0.63 mg/dL 0.57 - 1.11 mg/dL [facility] GFR/1.73 sq M.predicted (S/P/Bld) [Vol rate/Area] - PINF [facility] Comment on above: Calculation based on the Chronic Kidney Disease Epidemiology Collaboration (CKD-EPI) equation refit without adjustment for race Glucose [Mass/Vol] 107 mg/dL 82 - 115 mg/dL [facility] Interpretation and review of laboratory results Normal [facility] Potassium [Moles/Vol] 4.1 mmol/L 3.5 - 5.1 mmol/L [facility] Comment on above: Plasma potassium conrado ues may be up to 0.5 mmol/L lower than serum values. Sodium [Moles/Vol] 141 mmol/L 136 - 145 mmol/L [facility] Urea nitrogen [Mass/Vol] 10 mg/dL 9 - 23 mg/dL [facility] CBC W Auto Differential pane l (Bld)on 05-17-2025 Basophils (Bld) [#/Vol] 0.1 10*3/uL 0.0 - 0.2 10*3/uL [facility] Basophils/100 WBC (Bld) 0.5 % 0.0 - 2.0 % [facility] Eosinophils (Bld) [#/Vol] 0.4 10*3/uL 0. 0 - 0.5 10*3/uL [facility] Eosinophils/100 WBC (Bld) 3.1 % 0.0 - 6.0 % [facility] Erythrocyte distribution width (RBC) [Ratio] 13.2 % 11.5 - 15.0 % [facility] Hematocrit (Bld) [Volume fraction] 39.7 % 35.0 - 47.0 % [facility] Hemoglobin (Bld) [Mass/Vol] 13.5 g/dL 11.7 - 16.0 g/dL [facility] Immature granulocytes (Bld) [#/Vol] 0 10*3/uL NINF - 0.1 10*3/uL [facility] Immature granulocytes/100 WBC (Bld) 0.3 % 0.0 - 2.0 % [facility] Interpretation and review of laboratory results Abnormal [facility] Lymphocytes (Bld) [#/Vol] 1.7 10*3/uL 1. 0 - 4.3 10*3/uL [facility] Lymphocytes/100 WBC (Bld) 14.2 % Low 15 .0 - 45.0 % [facility] MCH (RBC) [Entitic mass] 32.5 pg 26. 0 - 34.0 pg [facility] MCHC (RBC) [Mass/Vol] 34 % 30.5 - 36.0 % [facility] MCV (RBC) [Entitic vol] 95.4 fL 77.0 - 99.0 fL [facility] Monocytes (Bld) [#/Vol] 1 10*3/uL High 0.0 - 0.9 10*3/uL [facility] Monocytes/100 WBC (Bld) 8.1 % 5.0 - 13.0 % [facility] Neutrophils (Bld) [#/Vol] 8.6 10*3/uL High 1. 8 - 7.5 10*3/uL [facility] Neutrophils/100 WBC (Bld) 73.8 % 38 .0 - 82.0 % [facility] Nucleated RBC/100 WBC (Bld) [Ratio] 0 % [facility] Platelet mean volume (Bld) [Entitic vol] 8.1 fL Low 9.0 - 12.7 fL [facility] Comment on above: MPV is a calculated measurement using platelet volume ratio Platelets (Bld) [#/Vol] 371 10*3/uL 140 - 440 10*3/uL [facility] RBC (Bld) [#/Vol] 4.16 10*6/uL 3.80 - 5.2 0 10*6/uL [facility] WBC (Bld) [#/Vol] 11.7 10*3/uL High 3.6 - 10.7 10*3/uL [facility] CBC WITH AUTO DIFFERENTIALon 05-17-2025 Basophils (Bld) [#/Vol] 0.1 10*3/uL Normal 0.0-0.2 [facility] Comment on above: Performed By: #### L [id number] ####Heart Doctor: ANA HIGGINS ([id number])[facility]AMPUSA VICKI RITTMAN (SWRLAB)[address] [place] [address] [place] Basophils/100 WBC (Bld) 0.5 % Normal 0.0-2.0 [facility] Comment on above: Performed By: #### L [id number] ####Heart Doctor: ANA HIGGINS ([id number])[facility]AMP[facility] VICKI RITTMAN (SWRLAB)[address] [place] [address] [place] Eosinophils (Bld) [#/Vol] 0.4 10*3/uL Normal 0.0-0.5 [facility] Comment on above: Performed By: #### L [id number] ####Heart Doctor: ANA HIGGINS ([id number])[facility]AMP[facility] VICKI RITTMAN (SWRLAB)[address] [place] [address] [place] Eosinophils/100 WBC (Bld) 3.1 % Normal 0.0-6.0 [facility] Comment on above: Performed By: #### L [id number] ####Heart Doctor: ANA HIGGINS ([id number])[facility] [place] [employer] (SWRLAB)[address] [place] [address] Erythrocyte distribution width (RBC) [Ratio] 13.2 % Normal 11.5-15.0 [facility] Comment on above: Performed By: #### L [id number] ####Heart Doctor: ANA HIGGINS ([id number])[facility]USAn[facility] COHEN RITTMAN (SWRLAB)[address] [place] [address] Hematocrit (Bld) [Volume fraction] 39.7 % Normal 35.0-47.0 [facility] Comment on above: Performed By: #### L [id number] ####Heart Doctor: ANA HIGGINS ([id number])[facility] COHEN RITTMAN (SWRLAB)[address] [place] [address] Hemoglobin (Bld) [Mass/Vol] 13.5 g/dL Normal 11.7-16. 0 [facility] Comment on above: Performed By: #### L [id number] ####Heart Doctor: ANA HIGGINS ([id number])[employer] [employer] (SWRLAB)[address] [place] [address] IMMATURE GRANS % 0.3 % Normal 0.0-2.0 [facility] Comment on above: Performed By: #### L [id number] ####Heart Doctor: ANA HIGGINS ([id number])[employer] [employer] (SWRLAB)[address] [place] [address] IMMATURE GRANS ABSOLUTE 0.0 10*3/uL Normal <0.1 [facility] Comment on above: Performed By: #### L [id number] ####Heart Doctor: ANA HIGGINS ([id number])[facility]US[facility] COHNE RITTMAN (SWRLAB)[address] [place] [address] Lymphocytes (Bld) [#/Vol] 1.7 10*3/uL Normal 1.0-4.3 [facility] Comment on above: Performed By: #### L [id number] ####Heart Doctor: ANA HIGGINS ([id number])[facility]US[facility] COHEN RITTMAN (SWRLAB)[address] [place] [address] [place] Lymphocytes/100 WBC (Bld) 14.2 % Low 15.0-45.0 [facility] Comment on above: Performed By: #### L [id number] ####Heart Doctor: ANA HIGGINS ([id number])[facility] ([facility])[address] [place] [address] MCH (RBC) [Entitic mass] 32.5 pg Normal 26.0-34.0 [facility] Comment on above: Performed By: #### L [id number] ####Heart Doctor: ANA HIGGINS ([id number])[facility] ([facility])[address] [place] [address] [place] MCHC 34.0 % Normal 30.5-36.0 [facility] Comment on above: Performed By: #### L [id number] ####Heart Doctor: ANA HIGGINS ([id number])[facility] ([facility])[address] [place] [address] MCV (RBC) [Entitic vol] 95.4 fL Normal 77.0-99.0 [facility] Comment on above: Performed By: #### L [id number] ####Heart Doctor: ANA HIGGINS ([id number])[facility] ([facility])[address] [place] [address] [place] Monocytes (Bld) [#/Vol] 1.0 10*3/uL High 0.0-0.9 [facility] Comment on above: Performed By: #### L [id number] ####Heart Doctor: ANA HIGGINS ([id number])[facility] ([facility])[address] [place] [address] [place] Monocytes/100 WBC (Bld) 8.1 % Normal 5.0-13.0 [facility] Comment on above: Performed By: #### L [id number] ####Heart Doctor: ANA HIGGINS ([id number])[facility] [place] ([facility])[address] [place] [address] NEUTROPHILS ABSOLUTE 8.6 10*3/uL High 1.8-7.5 [facility] Comment on above: Performed By: #### L [id number] ####Heart Doctor: ANA HIGGINS ([id number])[facility] ([facility])[address] [place] [address] Neutrophils/100 WBC (Bld) 73.8 % Normal 38.0-82.0 [facility] Comment on above: Performed By: #### L [id number] ####Heart Doctor: ANA HIGGINS ([id number])[facility] ([facility])[address] [place] [address] NRBC 0.0 /100 WBCs Normal 0.0-2.0 [facility] Comment on above: Performed By: #### L [id number] ####Heart Doctor: ANA HIGGINS ([id number])[facility] ([facility])[address] [place] [address] Platelet mean volume (Bld) [Entitic vol] 8.1 fL Low 9.0-12.7 [facility] Comment on above: Result Comment: MPV is a calculated measurement using platelet volume ratio Performed By: #### L [id number] ####Heart Doctor: ANA HIGGINS ([id number])[facility] ([facility])[address] [place] [address] [place] Platelets (Bld) [#/Vol] 371 10*3/uL Normal 140-440 [facility] Comment on above: Performed By: #### L [id number] ####Heart Doctor: ANA HIGGINS ([id number])[facility] [place] ([facility])[address] RBC (Bld) [#/Vol] 4.16 10*6/uL Normal 3.80-5.20 [facility] Comment on above: Performed By: #### L [id number] ####Heart Doctor: ANA HIGGINS ([id number])[facility] ([facility])[address] WBC (Bld) [#/Vol] 11.7 10*3/uL High 3.6-10.7 [facility] Comment on above: Performed By: #### L [id number] ####Heart Doctor: ANA HIGGINS ([id number])[facility] (SWRL[place])[address] ECG 12-LEADon 05-17-2025 ECG 12-LEAD IMPRESSION: Sinus rhythm Incomplete right bundle branch block Compared to ECG 05/14/25 No significant change Electronically Signed On 05-17-2025 23:04:59 EDT by Jovan Mae Normal [facility] ED Nursing Noteon 05-17-2025 ED Nursing Note Patient arrived via squad to room 7. Patient complains of increased SOB and left rib pain since her fall on Thursday. Patient arrived on 4 L O2 with SpO2 98%. Patient normally on 2L O2 at home. Normal [facility] ED Provider Noteon ED Provider Note Emergency Department Encounter [facility] ED Patient: Sully Perdomo : 1955 Date of Evaluation: 05/17/2025 ED Provider: Jovan Mae DO Chief Complaint Chief Complaint Patient presents with Shortness of Breath NENANA Sully Perdomo is a 69 y.o. female who presents to the emergency department complaining of left rib pain. Patient explains that few days prior she had a fall, striking the left side of her ribs and injuring her head. She was evaluated and was found to have bruised rib. She reportedly did not have any rib fractures, pneumothorax or other severe injuries. Patient reports she had minimal symptoms however today she started having severe pain on the left side. This is worse if she takes a deep breath. She does chronically use oxygen due to history of COPD. She also had increased sputum production and spoke with her doctor who started her on doxycycline, she has not taken any doses of this yet. Additional history obtained from : n/a Barriers to obtaining history from patient: n/a ROS: Review of Systems completed as follows: (Bold = positive, Not bold = negative) GENERAL: fevers, chills, malaise ENT: runny nose, congestion, sore throat, ear pain NEURO: weakness, numbness of tingling, headache CARDIOVASCULAR: chest pain, syncope PULMONARY: shortness of breath, cough, wheezing GASTROINTESTINAL: nausea, vomiting, abdominal pain, diarrhea, constipation, MUSCULOSKELETAL: pain GENITAL/URINARY: dysuria, hematuria, increased urinary frequency, hesitancy, flank pain SKIN: rash, lesions, wound Past History Medical History[1] Surgical History[2] Social History[3] I have reviewed the history above as provided by nursing notes. Medications/Allergies Discharge Medication List as of 05/17/2025 11:37 PM CONTINUE these medications which have NOT CHANGED Details albuterol (2.5 MG/3ML) 0.083% nebulizer solution albuterol sulfate 2.5 mg/3 mL (0.083 %) solution for nebulization, Historical Med albuterol 108 (90 Base) MCG/ACT inhaler every 4 hours., Starting Thu06/26/2022, Historical Med alendronate (Fosamax) 70 MG tablet 1 tablet 30 minutes before the first food, beverage or medicine of the day with plain water Orally Once a week for 84, Historical Med ALPRAZolam (Xanax) 1 MG tablet alprazolam 1 mg tablet, Historical Med amLODIPine (Norvasc) 10 MG tablet Take 10 mg by mouth daily., Starting Thu09/19/2022, Historical Med azithromycin (Zithromax) 250 MG tablet Every 24 hours., Starting Thu11/25/2022, Historical Med busPIRone (Buspar) 10 MG tablet Starting 12/07/2022, Historical Med cefdinir (Omnicef) 300 MG capsule Take 300 mg by mouth 2 times daily., Starting Thu05/22/2022, Historical Med clarithromycin (Biaxin) 500 MG tablet clarithromycin 500 mg tablet, Historical Med clindamycin (Cleocin) 150 MG capsule take 1 capsule by mouth twice a day until finished, Historical Med clonazePAM (KlonoPIN) 0.5 MG tablet Take 0.5 mg by mouth Nightly., Starting Thu11/12/2022, Historical Med cyclobenzaprine (Flexeril) 5 MG tablet every 12 hours., Historical Med dexAMETHasone (Decadron) 6 MG tablet Take 1 tablet (6 mg) by mouth daily for 5 days., Starting Thu10/14/2024, Until Thu10/19/2024, Normal doxycycline (Vibra-Tabs) 100 MG tablet Take 100 mg by mouth 2 times daily., Starting Thu12/20/2021, Historical Med escitalopram (Lexapro) 10 MG tablet Starting Thu12/07/2022, Historical Med fluticasone (Flonase) 50 MCG/ACT nasal spray INSTILL 2 SPRAYS INTO EACH NOSTRIL DAILY, Starting Thu02/20/2025, Normal Fluticasone-Umeclidin -Vilant (Trelegy Ellipta) 100-62.5-25 MCG/ACT aerosol powder 1 puff Every 24 hours., Historical Med guaiFENesin (Mucinex) 600 MG 12 hr tablet Take 1 tablet by mouth every 12 hours as needed., Historical Med HYDROcodone-acetamino phen ([place]) 5-325 MG tablet take 1 tablet by mouth every 4 to 6 hours WHILE AWAKE if needed for POST OP PAIN for 3 days, Historical Med hydrOXYzine HCl (Atarax) 25 MG tablet take 3 tablets by mouth at bedtime if needed, Historical Med lisinopril-hydroCHLOR Othiazide 10-12.5 MG tablet Take 1 tablet by mouth daily., Starting Thu10/10/2024, Until Thu11/09/2024, Historical Med loratadine (Claritin) 10 MG tablet Take 1 tablet by mouth daily., Historical Med meclizine (Antivert) 25 MG tablet every 8 hours., Historical Med montelukast (Singulair) 10 MG tablet Every 24 hours., Starting Thu11/25/2022, Historical Med omeprazole (PriLOSEC) [address] capsule take 1 capsule by mouth once daily ON AN EMPTY STOMACH AT LEAST 30 MINUTES BEFORE EATING, Historical Med pseudoephedrine (Sudafed) 30 MG tablet Take 1 tablet (30 mg) by mouth every 6 hours as needed for congestion., Starting 10/14/2024, Normal ramelteon (Rozerem) 8 MG tablet take 1/2 tablet by mouth at bedtime for 2 NIGHTS then take 1 tablet by mouth at bedtime, Historical Med traMADol (Ultram) 50 MG tablet take 1 tablet by mouth every 4 hours if neede (more content not included)... Normal [facility] HIGH SENSITIVITY TROPONIN, S ERIAL BASELINEon 05-17-2025 TROPONIN HS SERIAL BASELINE <3 Normal <=14 [facility] Comment on above: Result Comment: In i ndividuals presenting with symptoms > 2h, a baseline troponin <= 5 ng/L suggests acute cardiac injury is unlikely and further serial testing is generally not indicated. Performed By: #### L [id number], [id number] ####Heart Doctor: ANA HIGGINS ([id number])[facility] ([facility])[address] [place] [address] No Panel Informationon 05-17 P Mayer 80 degrees [facility] [place] Interval 149 ms [facility] QRS Mayer 39 degrees [facility] QRSD Interval 112 ms [facility] QT Interval 407 ms [facility] QTC Interval 467 ms [facility] T Wave Mayer 61 degrees [facility] Sinus rhythm Incomplete right bundle branch block Compared to ECG 05/14/25 No significant change Electronically Signed On 05-17-2025 23:04:59 EDT by Jovan Mcnamara D O - 05/17/2025 IMPRESSION: Sinus rhythm Incomplete right bundle branch block Compared to ECG 05/14/25 No significant change Electronically Signed On 05-17-2025 23:04:59 EDT by Hurricane Partyrabia [facility] Interpretation and review of laboratory results Normal [facility] Troponin HS Serial Baseline ng/L NINF - 14 ng/L [facility] Comment on above: In individuals prese nting with symptoms > 2h, a baseline troponin <= 5 ng/L suggests acute cardiac injury is unlikely and further serial testing is generally not indicated. [facility] [employer] Vital signson 05-17-2025 Heart rate 79 /min bpm [facility] [employer] XR Chest Single viewon 05-17 1. Severe emphysema. 2. No confluent consolidation. Report Dictated on Electronically Signed By: Delmi Sweeney MD Electronically Signed Date/Time: 05/17/2025 11:13 PM EDT [facility] Patient Name: SULLY PERDOMO : 1955 Exam Date/Time: 05/17/2025 22:55 Procedure: XR CHEST 1 VIEW Ordering Provider: MAE DUSTIN Reason For Exam: DYSPNEA INDICATION: Shortness of breath. VIEWS: Chest AP upright COMPARISON: 11/04/2024 FINDINGS: The trachea is midline. The heart is not enlarged. There is no confluent consolidation. There is blunting of the costophrenic angles. There is coarsening of the interstitium. Cardiac monitoring wires and leads are present. The bone mineralization is decreased with bilateral old healed rib fractures. Right upper lobe calcified nodules are unchanged. [facility] Delmi Sweeney MD - 05/17/2025 Patient Name: SULLY PERDOMO : 1955 Exam Date/Time: 05/17/2025 22:55 Procedure: XR CHEST 1 VIEW Ordering Provider: MAE DUSTIN Reason For Exam: DYSPNEA INDICATION: Shortness of breath. VIEWS: Chest AP upright COMPARISON: 11/04/2024 FINDINGS: The trachea is midline. The heart is not enlarged. There is no confluent consolidation. There is blunting of the costophrenic angles. There is coarsening of the interstitium. Cardiac monitoring wires and leads are present. The bone mineralization is decreased with bilateral old healed rib fractures. Right upper lobe calcified nodules are unchanged. IMPRESSION: 1. Severe emphysema. 2. No confluent consolidation. Report Dictated on Electronically Signed By: Delmi Sweeney MD Electronically Signed Date/Time: 05/17/2025 11:13 PM EDT [facility] Radiology Study observation (narrative) [facility] [employer] XR Chest Single viewOrdered By: Delmi Sweeney on 05-17-2025 [facility] Work Phone: ECG 12-LEADon 05-15-2025 ECG 12-LEAD IMPRESSION: Sinus rhythm Short [place] interval Electronically Signed On 05-15-2025 05:40:42 EDT by Harpal Cuevas Normal [facility] No Panel Informationon 05-15 P Mayer 30 degrees [facility] NJ Interval 34 ms [facility] QRS Mayer 43 degrees [facility] QRSD Interval 124 ms [facility] QT Interval 432 ms [facility] QTC Interval 488 ms [facility] T Wave Mayer 68 degrees [facility] Sinus rhythm Short [place] interval Electronically Signed On 05-15-2025 05:40:42 EDT by Harpal Cuevas CV Harpal Hughes MD - 05/15/2025 IMPRESSION: Sinus rhythm Short [place] interval Electronically Signed On 05-15-2025 05:40:42 EDT by Harpal Cuevas [facility] Vital signson 05-15-2025 Heart rate 77 /min bpm [facility] APTTon 05-14-2025 aPTT Coag (Bld) [Time] 25.4 s Normal 20.0-30.5 [facility] Comment on above: Result Comment: ANNABELLE Cho COMMENTS: NOTE: The therapeutic time for Heparin anticoagulation, based on Xa activity inhibition, is an APTT of 46-80 seconds. Performed By: #### L [id number], [id number] ####Heart Doctor: ANA HIGGINS ([id number])[facility] ([facility])[address] [place] [address] BLOOD CULTUREon 05-14-2025 Bacteria identified Cx Nom (Bld) BLOOD CULTURE Reference No growth at 5 days ORDER COMMENTS: Blood Collection Site: Right Antecubital [ S = SUSCEPTIBLE R = RESISTANT I = INTERMEDIATE S-DD = Susceptible-dose dependent NS = Non-susceptible NO = No Interpretation ] Normal [facility] Comment on above: Performed By: #### L [id number] #### Heart Doctor: ANA HIGGINS ([id number]) [facility] ([facility]) [address] [place] [address] BLOOD GAS, VENOUS (SWR AND S HC)on 05-14-2025 AMOUNT OF OXYGEN 2 Normal [facility] Comment on above: Performed By: #### L [id number] ####Heart Doctor: ANA HIGGINS ([id number])[facility] ([facility])[address] [place] [address] [place] BASE EXCESS (MMOL/L) IN VENOUS BLOOD 1.0 mmol/L Normal -3.0-3.0 [facility] Comment on above: Performed By: #### L [id number] ####Heart Doctor: ANA HIGGINS ([id number])[facility] ([facility])[address] [place] [address] CARBON DIOXIDE (MM HG) IN VENOUS BLOOD 48 mm(Hg) Normal 40-55 [facility] Comment on above: Performed By: #### L [id number] ####Heart Doctor: ANA HIGGINS ([id number])[facility] ([facility])[address] [place] [address] [place] CO2 [Moles/Vol] 28.0 mmol/L Normal 24.0-28.0 [facility] Comment on above: Performed By: #### L [id number] ####Heart Doctor: ANA HIGGINS ([id number])[place] ([facility])[address] [place] [address] [place] HCO3 (Bld) [Moles/Vol] 26.3 mmol/L Normal 23.0-27.0 [facility] Comment on above: Performed By: #### L [id number] ####Heart Doctor: ANA HIGGINS ([id number])[facility] ([facility])[address] [place] [address] [place] OXYGEN (MM HG) IN VENOUS BLOOD 45 mm(Hg) Normal [facility] Comment on above: Performed By: #### L [id number] ####Heart Doctor: ANA HIGGINS ([id number])[facility] ([facility])[address] [place] [address] OXYGEN SATURATION (%) IN VENOUS BLOOD 78.0 % Normal 60.0-80.0 [facility] Comment on above: Performed By: #### L [id number] ####Heart Doctor: ANA HIGGINS ([id number])[facility] (SW[facility])[address] [place] [address] pH (Bld) 7.349 [pH] Normal 7.310-7.410 [facility] Comment on above: Performed By: #### L [id number] ####Heart Doctor: ANA HIGGINS ([id number])[facility] ([facility])[address] [place] [address] SOURCE OF OXYGEN Nasal Cannula (LPM) Normal [facility] Comment on above: Performed By: #### L [id number] ####Heart Doctor: ANA HIGGINS ([id number])[facility] ([facility])[address] [place] [address] CBC W Auto Differential pane l (Bld)on 05-14-2025 Basophils (Bld) [#/Vol] 0.1 10*3/uL 0.0 - 0.2 10*3/uL [facility] Basophils/100 WBC (Bld) 0.6 % 0.0 - 2.0 % [facility] Eosinophils (Bld) [#/Vol] 0.3 10*3/uL 0. 0 - 0.5 10*3/uL [facility] Eosinophils/100 WBC (Bld) 2.6 % 0.0 - 6.0 % [facility] Erythrocyte distribution width (RBC) [Ratio] 13.1 % 11.5 - 15.0 % [facility] Hematocrit (Bld) [Volume fraction] 38 % 35.0 - 47.0 % [facility] Hemoglobin (Bld) [Mass/Vol] 13.2 g/dL 11.7 - 16.0 g/dL [facility] Immature granulocytes (Bld) [#/Vol] 0 10*3/uL NINF - 0.1 10*3/uL [facility] Immature granulocytes/100 WBC (Bld) 0.3 % 0.0 - 2.0 % [facility] Interpretation and review of laboratory results Abnormal [facility] Lymphocytes (Bld) [#/Vol] 1.8 10*3/uL 1. 0 - 4.3 10*3/uL [facility] Lymphocytes/100 WBC (Bld) 18.7 % 15 .0 - 45.0 % [facility] MCH (RBC) [Entitic mass] 32.8 pg 26. 0 - 34.0 pg [facility] MCHC (RBC) [Mass/Vol] 34.7 % 30.5 - 36.0 % [facility] MCV (RBC) [Entitic vol] 94.3 fL 77.0 - 99.0 fL [facility] Monocytes (Bld) [#/Vol] 0.9 10*3/uL 0.0 - 0.9 10*3/uL [facility] Monocytes/100 WBC (Bld) 9.2 % 5.0 - 13.0 % [facility] Neutrophils (Bld) [#/Vol] 6.7 10*3/uL 1. 8 - 7.5 10*3/uL [facility] Neutrophils/100 WBC (Bld) 68.6 % 38 .0 - 82.0 % [facility] Nucleated RBC/100 WBC (Bld) [Ratio] 0 % [facility] Platelet mean volume (Bld) [Entitic vol] 8.1 fL Low 9.0 - 12.7 fL [facility] Comment on above: MPV is a calculated measurement using platelet volume ratio Platelets (Bld) [#/Vol] 363 10*3/uL 140 - 440 10*3/uL [facility] RBC (Bld) [#/Vol] 4.03 10*6/uL 3.80 - 5.2 0 10*6/uL [facility] WBC (Bld) [#/Vol] 9.8 10*3/uL 3.6 - 10.7 10*3/uL [facility] CBC WITH AUTO DIFFERENTIALon 05-14-2025 Basophils (Bld) [#/Vol] 0.1 10*3/uL Normal 0.0-0.2 [facility] Comment on above: Performed By: #### L [id number] ####Heart Doctor: ANA HIGGINS ([id number])[facility] ([facility])[address] [place] [address] [place] Basophils/100 WBC (Bld) 0.6 % Normal 0.0-2.0 [facility] Comment on above: Performed By: #### L [id number] ####Heart Doctor: ANA HIGGINS ([id number])[facility] ([facility])[address] [place] [address] Eosinophils (Bld) [#/Vol] 0.3 10*3/uL Normal 0.0-0.5 [facility] Comment on above: Performed By: #### L [id number] ####Heart Doctor: ANA HIGGINS ([id number])[facility] ([facility])[address] [place] [address] [place] Eosinophils/100 WBC (Bld) 2.6 % Normal 0.0-6.0 [facility] Comment on above: Performed By: #### L [id number] ####Heart Doctor: ANA HIGGINS ([id number])[facility] ([facility])[address] [place] [address] Erythrocyte distribution width (RBC) [Ratio] 13.1 % Normal 11.5-15.0 [facility] Comment on above: Performed By: #### L [id number] ####Heart Doctor: ANA HIGGINS ([id number])[facility] ([facility])[address] [place] [address] Hematocrit (Bld) [Volume fraction] 38.0 % Normal 35.0-47.0 [facility] Comment on above: Performed By: #### L [id number] ####Heart Doctor: ANA HIGGINS ([id number])[facility] ([facility])[address] [place] [address] Hemoglobin (Bld) [Mass/Vol] 13.2 g/dL Normal 11.7-16. 0 [facility] Comment on above: Performed By: #### L [id number] ####Heart Doctor: ANA HIGGINS ([id number])[facility] ([facility])[address] [place] [address] IMMATURE GRANS % 0.3 % Normal 0.0-2.0 [facility] Comment on above: Performed By: #### L [id number] ####Heart Doctor: ANA HIGGINS ([id number])[facility] ([facility])[address] [place] [address] IMMATURE GRANS ABSOLUTE 0.0 10*3/uL Normal <0.1 [facility] Comment on above: Performed By: #### L [id number] ####Heart Doctor: ANA HIGGINS ([id number])[facility] ([facility])[address] [place] [address] Lymphocytes (Bld) [#/Vol] 1.8 10*3/uL Normal 1.0-4.3 [facility] Comment on above: Performed By: #### L [id number] ####Heart Doctor: ANA HIGGINS ([id number])[facility] ([facility])[address] [place] [address] Lymphocytes/100 WBC (Bld) 18.7 % Normal 15.0-45.0 [facility] Comment on above: Performed By: #### L [id number] ####Heart Doctor: ANA HIGGINS ([id number])[facility] ([facility])[address] [place] [address] MCH (RBC) [Entitic mass] 32.8 pg Normal 26.0-34.0 [facility] Comment on above: Performed By: #### L [id number] ####Heart Doctor: ANA HIGGINS ([id number])[facility] ([facility])[address] [place] [address] MCHC 34.7 % Normal 30.5-36.0 [facility] Comment on above: Performed By: #### L [id number] ####Heart Doctor: ANA HIGGINS ([id number])[facility] ([facility])[address] [place] [address] [place] MCV (RBC) [Entitic vol] 94.3 fL Normal 77.0-99.0 [facility] Comment on above: Performed By: #### L [id number] ####Heart Doctor: ANA HIGGINS ([id number])[facility] ([facility])[address] [place] [address] [place] Monocytes (Bld) [#/Vol] 0.9 10*3/uL Normal 0.0-0.9 [facility] Comment on above: Performed By: #### L [id number] ####Heart Doctor: ANA HIGGINS ([id number])[facility] ([facility])[address] [place] [address] [place] Monocytes/100 WBC (Bld) 9.2 % Normal 5.0-13.0 [facility] Comment on above: Performed By: #### L [id number] ####Heart Doctor: ANA HIGGINS ([id number])[facility] ([facility])[address] [place] [address] [place] NEUTROPHILS ABSOLUTE 6.7 10*3/uL Normal 1.8-7.5 [facility] Comment on above: Performed By: #### L [id number] ####Heart Doctor: ANA HIGGINS ([id number])[facility] ([facility])[address] [place] [address] [place] Neutrophils/100 WBC (Bld) 68.6 % Normal 38.0-82.0 [facility] Comment on above: Performed By: #### L [id number] ####Heart Doctor: ANA HIGGINS ([id number])[facility] ([facility])[address] [place] [address] [place] NRBC 0.0 /100 WBCs Normal 0.0-2.0 [facility] Comment on above: Performed By: #### L [id number] ####Heart Doctor: ANA HIGGINS ([id number])[facility] ([facility])[address] [place] [address] Platelet mean volume (Bld) [Entitic vol] 8.1 fL Low 9.0-12.7 [facility] Comment on above: Result Comment: MPV is a calculated measurement using platelet volume ratio Performed By: #### L [id number] ####Heart Doctor: ANA HIGGINS ([id number])[facility] ([facility])[address] [place] [address] Platelets (Bld) [#/Vol] 363 10*3/uL Normal 140-440 [facility] Comment on above: Performed By: #### L [id number] ####Heart Doctor: ANA HIGGINS ([id number])[facility] ([facility])[address] [place] [address] RBC (Bld) [#/Vol] 4.03 10*6/uL Normal 3.80-5.20 [facility] Comment on above: Performed By: #### L [id number] ####Heart Doctor: ANA HIGGINS ([id number])[facility] ([facility])[address] [place] [address] WBC (Bld) [#/Vol] 9.8 10*3/uL Normal 3.6-10.7 [facility] Comment on above: Performed By: #### L [id number] ####Heart Doctor: ANA HIGGINS ([id number])[facility] (SWRL[facility])[address] [place] [address] COMPLETE URINALYSIS WITH REF PAM TO CULTUREon 05-14-2025 BILIRUBIN, TOTAL PRESENCE IN URINE Negative Normal Negative [facility] Comment on above: Performed By: #### L [id number] #### Heart Doctor: ANA [id number]) [facility] ([facility]) [address] [place] [address] [place] Clarity (U) Clear Normal Clear [facility] Comment on above: Performed By: #### L [id number] #### Heart Doctor: ANA HIGGINS ([id number]) [facility] ([place]) [address] [place] [address] [place] Color (U) Colorless Normal Lt. Yellow [facility] Comment on above: Performed By: #### L [id number] #### Heart Doctor: ANA HIGGINS ([id number]) [facility] ([place]) [address] [place] [address] [place] GLUCOSE (MG/DL) IN URINE Normal Normal Nor mal (<70) [facility] Comment on above: Performed By: #### L [id number] #### Heart Doctor: ANA HIGGINS ([id number]) [facility] [place] ([place]) [address] [place] [address] [place] HEMOGLOBIN PRESENCE IN URINE Negative Normal Negative [facility] Comment on above: Performed By: #### L [id number] #### Heart Doctor: ANA HIGGINS ([id number]) [facility] [place] ([place]) [address] [place] [address] [place] Ketones Ql (U) Negative Normal Negative [facility] Comment on above: Performed By: #### L [id number] #### Heart Doctor: ANA HIGGINS ([phone]) [facility] [place] ([place]) [address] [place] [address] [place] LEUKOCYTE ESTERASE PRESENCE IN URINE BY TEST STRIP Negative Normal Negative [facility] Comment on above: Performed By: #### L [id number] #### Heart Doctor: ANA HIGGINS ([id number]) [facility] [place] ([place]) [address] [place] [address] [place] NITRITE PRESENCE IN URINE Negative Normal Negative [facility] Comment on above: Performed By: #### L [id number] #### Heart Doctor: ANA HIGGINS ([id number]) [facility]US[facility] ([place]) [address] [place] [address] pH (U) 5.5 [pH] Normal 5.0-8.0 [facility] Comment on above: Performed By: #### L [id number] #### Heart Doctor: ANA HIGGINS ([id number]) [facility]US[facility] [place] ([place]) [address] [place] [address] Protein (U) [Mass/Vol] Negative Normal Negative [facility] Comment on above: Performed By: #### L [id number] #### Heart Doctor: ANA HIGGINS ([id number]) [facility]US[facility] [place] ([place]) [address] [place] [address] Specific gravity (U) [Rel density] 1.006 Normal 1.005-1.030 [facility] Comment on above: Result Comment: ORDMaricel R COMMENTS: A specimen with <=10 WBC is not consistent with inflammation. This specimen will not reflex to a urine culture. Performed By: #### L [id number] #### Heart Doctor: ANA HIGGINS ([id number]) [facility]US[facility] [place] [place] ([place]) [address] [place] [address] UROBILINOGEN (MG/DL) IN URINE Normal Normal Normal (0-1) [facility] Comment on above: Performed By: #### L [id number] #### Heart Doctor: ANA HIGGINS ([id number]) [facility]US[facility] [place] ([place]) [address] [place] [address] COMPREHENSIVE METABOLIC PANE Aleks 05-14-2025 Albumin [Mass/Vol] 3.8 g/dL Normal 3.4-4.8 [facility] Comment on above: Performed By: #### L [id number], LAB99 ####Heart Doctor: ANA HIGGINS ([phone])[facility] ([facility])[address] [place] [address] [place] ALP [Catalytic activity/Vol] 57 U/L Normal 40-150 [facility] Comment on above: Performed By: #### L AB17, LAB99 ####Heart Doctor: ANA HIGGINS ([id number])[facility] [place] ([place])[address] [place] [address] [place] ALT [Catalytic activity/Vol] 17 U/L Normal <30 [facility] Comment on above: Performed By: #### L AB17, LAB99 ####Heart Doctor: ANA HIGGINS ([id number])[facility]AMPUSA [place] ([place])[address] Anion gap [Moles/Vol] 6 mmol/L Normal 3-13 [facility] Comment on above: Performed By: #### L AB17, LAB99 ####Heart Doctor: ANA HIGGINS ([id number])[facility] [place] [place] ([place])[address] [place] [address] [place] AST [Catalytic activity/Vol] 23 U/L Normal <34 [facility] Comment on above: Performed By: #### L AB17, LAB99 ####Heart Doctor: ANA HIGGINS ([phone])[facility] [place] ([place])[address] [place] [address] [place] Bilirubin [Mass/Vol] 0.2 mg/dL Normal <1.2 [facility] Comment on above: Performed By: #### L AB17, LAB99 ####Heart Doctor: ANA HIGGINS ([phone])[facility] [place] ([place])[address] [place] [address] [place] Calcium [Mass/Vol] 9.1 mg/dL Normal 8.8-10.0 [facility] Comment on above: Performed By: #### L AB17, LAB99 ####Heart Doctor: ANA HIGGINS ([phone])[facility]USAn[facility] [place] ([place])[address] [place] [address] [place] Chloride [Moles/Vol] 109 mmol/L High 98-[address] [facility] Comment on above: Performed By: #### L AB17, LAB99 ####Heart Doctor: ANA HIGGINS ([id number])[facility]USAn[facility] [place] ([place])[address] [place] [address] [place] CO2 [Moles/Vol] 27 mmol/L Normal 23-31 [facility] Comment on above: Performed By: #### L AB17, LAB99 ####Heart Doctor: ANA HIGGINS ([id number])[facility]US[facility] [place] ([place])[address] [place] [address] [place] Creatinine [Mass/Vol] 0.59 mg/dL Normal 0.57-1.11 [facility] Comment on above: Performed By: #### Sandra AB17, LAB99 ####Heart Doctor: ANA HIGGINS ([phone])[facility]USAn[facility] [place] ([place])[address] [place] [address] [place] GLOMERULAR FILTRATION RATE ML/MIN/1.73 SQ M.PREDICTED >90.0 Normal >60.0 [facility] Comment on above: Result Comment: Calc ulation based on the Chronic Kidney Disease Epidemiology Collaboration (CKD-EPI) equation refit without adjustment for race Performed By: #### L AB17, LAB99 ####Heart Doctor: ANA HIGGINS ([phone])[facility]US[facility] [place] ([place])[address] [place] [address] [place] Glucose [Mass/Vol] 101 mg/dL Normal 82-115 [facility] Comment on above: Performed By: #### L AB17, LAB99 ####Heart Doctor: NAA HIGGINS ([id number])[facility]US[facility] [place] ([place])[address] [place] [address] [place] Potassium [Moles/Vol] 4.7 mmol/L Normal 3.5-5.1 [facility] Comment on above: Result Comment: [facility] potassium values may be up to 0.5 mmol/L lower than serum values. Performed By: #### L AB17, LAB99 ####Heart Doctor: ANA HIGGINS ([phone])[facility]USAn[facility] [place] ([place])[address] [place] [address] Protein [Mass/Vol] 6.7 g/dL Normal 6.4-8.3 [facility] Comment on above: Performed By: #### L AB17, LAB99 ####Heart Doctor: ANA HIGGINS ([phone])[facility] ([place])[address] [place] [address] Sodium [Moles/Vol] 142 mmol/L Normal 136-145 [facility] Comment on above: Performed By: #### L AB17, LAB99 ####Heart Doctor: NAA HIGGINS ([id number])[facility]AMP[facility] ([facility])[address] [place] [address] Urea nitrogen [Mass/Vol] 8 mg/dL Low 9-23 [facility] Comment on above: Performed By: #### L AB17, LAB99 ####Heart Doctor: ANA HIGGINS ([id number])[facility] VICKI [employer] (SWRLAB)[address] [place] [address] CT Abdomen and Pelvis WO and W contrast Zaria 05-14-2025 [facility] 1955 [id number] Exam Date/Time: 05/14/2025 03:22 Procedure: CT CHEST ABDOMEN PELVIS W CONTRAST Ordering Provider: CUEVAS NISHIT Reason For Exam: Trauma/Injury to Chest/Abdomen/Pelvis CLINICAL INFORMATION: Fall with head, neck, chest, abdomen, and pelvic pain. Major trauma. CT HEAD: 3 mm axial cuts are obtained through the brain without IV contrast. Dose reduction was employed with automated exposure control. The examination is compared to a previous study dated 06/11/2022. FINDINGS: The ventricles are within normal limits in respect to their size and configuration. There is no evidence of mass or mass-effect. There are no abnormal intra- or extra-axial fluid collections. No hemorrhage is seen. The bone windows demonstrate no evidence of fracture. Chronic inflammatory changes and postoperative changes are noted in the sinuses. A small air-fluid level is noted in the left maxillary sinus. The mastoid air cells are clear. [facility] Sergio Cunningham MD - 05/14/2025 Patient Name: SULLY PERDOMO : 1955 Exam Date/Time: 05/14/2025 03:22 Procedure: CT CHEST ABDOMEN PELVIS W CONTRAST Ordering Provider: CUEVAS NISHIT Reason For Exam: Trauma/Injury to Chest/Abdomen/Pelvis CLINICAL INFORMATION: Fall with head, neck, chest, abdomen, and pelvic pain. Major trauma. CT HEAD: 3 mm axial cuts are obtained through the brain without IV contrast. Dose reduction was employed with automated exposure control. The examination is compared to a previous study dated 06/11/2022. FINDINGS: The ventricles are within normal limits in respect to their size and configuration. There is no evidence of mass or mass-effect. There are no abnormal intra- or extra-axial fluid collections. No hemorrhage is seen. The bone windows demonstrate no evidence of fracture. Chronic inflammatory changes and postoperative changes are noted in the sinuses. A small air-fluid level is noted in the left maxillary sinus. The mastoid air cells are clear. IMPRESSION: 1. No intracranial hemorrhage. 2. Chronic sinusitis. CT C-SPINE: 1 mm axial cuts are obtained through the cervical spine without IV contrast. Sagittal and coronal reconstructions are reviewed. In addition, 3D rendering is performed by nc and reviewed on the [employer] Workstation. Dose reduction was employed with automated exposure control. The examination is compared to a previous MRI dated 04/28/2025. FINDINGS: There is a mild anterolisthesis C4 on C5. The slip is approximately 3 mm. Mild disc space narrowing and spurring are noted at C5-6 and C6-7. Vertebral body heights are maintained. There is no evidence of fracture or traumatic subluxation. IMPRESSION: 1. Moderate degenerative changes. These are stable when compared to the previous MRI. 2. No C-spine fracture or traumatic subluxation. CT CHEST: 1 mm axial cuts through the chest are provided with 75 mL Isovue IV contrast. Dose reduction was employed with automated exposure control. The examination is compared to a previous study dated 07/09/2018. FINDINGS: Advanced emphysematous changes are noted diffusely. Centrilobular emphysema is most pronounced in the lung apices. There are no focal infiltrates. Old healed rib fractures are noted bilaterally. There is no pneumothorax. The heart size is normal. The pulmonary arteries are enlarged consistent with chronic pulmonary hypertension. Mild coronary arterial calcifications are evident. There is no significant mediastinal lymphadenopathy. IMPRESSION: 1. Advanced COPD with evidence of chronic pulmonary hypertension. 2. No focal infiltrates. 3. Old bilateral healed rib fractures. 4. No pneumothorax. CT ABDOMEN: 3 mm axial cuts from the dome of the diaphragm through the iliac crests are provided with 75 mL Isovue IV contrast. Dose reduction was employed with automated exposure control. There are no comparison studies. FINDINGS: There is a small hiatal hernia. The liver and spleen are homogeneous in their attenuation without focal abnormality. The pancreas and adrenal glands are unremarkable. Both kidneys are identified in their cortical phase. Nephrograms enhance symmetrically without abnormality. No free fluid is seen within the abdomen. IMPRESSION: 1. No internal organ injury. CT PELVIS: 3 mm axial cuts from the iliac crests through the symphysis pubis are provided with 75 mL Isovue IV contrast. Dose reduction was employed with automated exposure control. There are no comparison studies. FINDINGS: Air and stool are identified within the colon to the level of the rectum. There is no evidence of obstruction. No free fluid is seen within the pelvis. Sagittal reconstructed images of the spine demonstrate an old L2 compression fracture. This has lost approximately 40% of its height. IMPRESSION: 1. No intracranial hemorrhage. 2. Chronic sinusitis. 3. Moderate degenerative changes in the cervical spine. These are stable when compared to the previous MRI. 4. No C-spine fracture or traumatic subluxation. 5. Advanced COPD with evidence of chronic pulmonary hypertension. 6. No focal infiltrates. 7. Old bilateral healed rib fractures. 8. No pneumothorax. 9. No internal organ injury. 10. Old L2 compression fracture. Report Dictated on Electronically Signed By: Sergio Cunningham MD Electronically Signed Date/Time: 05/14/2025 3:59 AM EDT [facility] Radiology Study observation (narrative) [facility] CT CERVICAL SPINE WO IV CONT [place] 05-14-2025 CT CERVICAL SPINE WO IV CONTRAST Patient Name: SULLY PERDOMO : 1955 Exam Date/Time: 05/14/2025 03:22 Procedure: CT CERVICAL SPINE WO IV CONTRAST Ordering Provider: CUEVAS NISHIT Reason For Exam: Trauma impaired range of motion of the neck CLINICAL INFORMATION: Fall with head, neck, chest, abdomen, and pelvic pain. Major trauma. CT HEAD: 3 mm axial cuts are obtained through the brain without IV contrast. Dose reduction was employed with automated exposure control. The examination is compared to a previous study dated 06/11/2022. FINDINGS: The ventricles are within normal limits in respect to their size and configuration. There is no evidence of mass or mass-effect. There are no abnormal intra- or extra-axial fluid collections. No hemorrhage is seen. The bone windows demonstrate no evidence of fracture. Chronic inflammatory changes and postoperative changes are noted in the sinuses. A small air-fluid level is noted in the left maxillary sinus. The mastoid air cells are clear. IMPRESSION: 1. No intracranial hemorrhage. 2. Chronic sinusitis. CT C-SPINE: 1 mm axial cuts are obtained through the cervical spine without IV contrast. Sagittal and coronal reconstructions are reviewed. In addition, 3D rendering is performed by nc and reviewed on the [employer] Workstation. Dose reduction was employed with automated exposure control. The examination is compared to a previous MRI dated 04/28/2025. FINDINGS: There is a mild anterolisthesis C4 on C5. The slip is approximately 3 mm. Mild disc space narrowing and spurring are noted at C5-6 and C6-7. Vertebral body heights are maintained. There is no evidence of fracture or traumatic subluxation. IMPRESSION: 1. Moderate degenerative changes. These are stable when compared to the previous MRI. 2. No C-spine fracture or traumatic subluxation. CT CHEST: 1 mm axial cuts through the chest are provided with 75 mL Isovue IV contrast. Dose reduction was employed with automated exposure control. The examination is compared to a previous study dated 07/09/2018. FINDINGS: Advanced emphysematous changes are noted diffusely. Centrilobular emphysema is most pronounced in the lung apices. There are no focal infiltrates. Old healed rib fractures are noted bilaterally. There is no pneumothorax. The heart size is normal. The pulmonary arteries are enlarged consistent with chronic pulmonary hypertension. Mild coronary arterial calcifications are evident. There is no significant mediastinal lymphadenopathy. IMPRESSION: 1. Advanced COPD with evidence of chronic pulmonary hypertension. 2. No focal infiltrates. 3. Old bilateral healed rib fractures. 4. No pneumothorax. CT ABDOMEN: 3 mm axial cuts from the dome of the diaphragm through the iliac crests are provided with 75 mL Isovue IV contrast. Dose reduction was employed with automated exposure control. There are no comparison studies. FINDINGS: There is a small hiatal hernia. The liver and spleen are homogeneous in their attenuation without focal abnormality. The pancreas and adrenal glands are unremarkable. Both kidneys are identified in their cortical phase. Nephrograms enhance symmetrically without abnormality. No free fluid is seen within the abdomen. IMPRESSION: 1. No internal organ injury. CT PELVIS: 3 mm axial cuts from the iliac crests through the symphysis pubis are provided with 75 mL Isovue IV contrast. Dose reduction was employed with automated exposure control. There are no comparison studies. FINDINGS: Air and stool are identified within the colon to the level of the rectum. There is no evidence of obstruction. No free fluid is seen within the pelvis. Sagittal reconstructed images of the spine demonstrate an old L2 compression fracture. This has lost approximately 40% of its height. IMPRESSION: 1. No intracranial hemorrhage. 2. Chronic sinusitis. 3. Moderate degenerative changes in the cervical spine. These are stable when compared to the previous MRI. 4. No C-spine fracture or traumatic subluxation. 5. Advanced COPD with evidence of chronic pulmonary hypertension. 6. No focal infiltrates. 7. Old bilateral healed rib fractures. 8. No pneumothorax. 9. No internal organ injury. 10. Old L2 compression fracture. Report Dictated on Electronically Signed By: Sergio Cunningham MD Electronically Signed Date/Time: 05/14/2025 3:59 AM EDT [facility] CT CHEST ABDOMEN PELVIS W CO NTRASTon 05-14-2025 CT CHEST ABDOMEN PELVIS W CONTRAST Patient Name: SULLY PERDOMO : 1955 [facility]#: [id number] Exam Date/Time: 05/14/2025 03:22 Procedure: CT CHEST ABDOMEN PELVIS W CONTRAST Ordering Provider: CUEVAS NISHIT Reason For Exam: Trauma/Injury to Chest/Abdomen/Pelvis CLINICAL INFORMATION: Fall with head, neck, chest, abdomen, and pelvic pain. Major trauma. CT HEAD: 3 mm axial cuts are obtained through the brain without IV contrast. Dose reduction was employed with automated exposure control. The examination is compared to a previous study dated 06/11/2022. FINDINGS: The ventricles are within normal limits in respect to their size and configuration. There is no evidence of mass or mass-effect. There are no abnormal intra- or extra-axial fluid collections. No hemorrhage is seen. The bone windows demonstrate no evidence of fracture. Chronic inflammatory changes and postoperative changes are noted in the sinuses. A small air-fluid level is noted in the left maxillary sinus. The mastoid air cells are clear. IMPRESSION: 1. No intracranial hemorrhage. 2. Chronic sinusitis. CT C-SPINE: 1 mm axial cuts are obtained through the cervical spine without IV contrast. Sagittal and coronal reconstructions are reviewed. In addition, 3D rendering is performed by nc and reviewed on the [employer] Workstation. Dose reduction was employed with automated exposure control. The examination is compared to a previous MRI dated 04/28/2025. FINDINGS: There is a mild anterolisthesis C4 on C5. The slip is approximately 3 mm. Mild disc space narrowing and spurring are noted at C5-6 and C6-7. Vertebral body heights are maintained. There is no evidence of fracture or traumatic subluxation. IMPRESSION: 1. Moderate degenerative changes. These are stable when compared to the previous MRI. 2. No C-spine fracture or traumatic subluxation. CT CHEST: 1 mm axial cuts through the chest are provided with 75 mL Isovue IV contrast. Dose reduction was employed with automated exposure control. The examination is compared to a previous study dated 07/09/2018. FINDINGS: Advanced emphysematous changes are noted diffusely. Centrilobular emphysema is most pronounced in the lung apices. There are no focal infiltrates. Old healed rib fractures are noted bilaterally. There is no pneumothorax. The heart size is normal. The pulmonary arteries are enlarged consistent with chronic pulmonary hypertension. Mild coronary arterial calcifications are evident. There is no significant mediastinal lymphadenopathy. IMPRESSION: 1. Advanced COPD with evidence of chronic pulmonary hypertension. 2. No focal infiltrates. 3. Old bilateral healed rib fractures. 4. No pneumothorax. CT ABDOMEN: 3 mm axial cuts from the dome of the diaphragm through the iliac crests are provided with 75 mL Isovue IV contrast. Dose reduction was employed with automated exposure control. There are no comparison studies. FINDINGS: There is a small hiatal hernia. The liver and spleen are homogeneous in their attenuation without focal abnormality. The pancreas and adrenal glands are unremarkable. Both kidneys are identified in their cortical phase. Nephrograms enhance symmetrically without abnormality. No free fluid is seen within the abdomen. IMPRESSION: 1. No internal organ injury. CT PELVIS: 3 mm axial cuts from the iliac crests through the symphysis pubis are provided with 75 mL Isovue IV contrast. Dose reduction was employed with automated exposure control. There are no comparison studies. FINDINGS: Air and stool are identified within the colon to the level of the rectum. There is no evidence of obstruction. No free fluid is seen within the pelvis. Sagittal reconstructed images of the spine demonstrate an old L2 compression fracture. This has lost approximately 40% of its height. IMPRESSION: 1. No intracranial hemorrhage. 2. Chronic sinusitis. 3. Moderate degenerative changes in the cervical spine. These are stable when compared to the previous MRI. 4. No C-spine fracture or traumatic subluxation. 5. Advanced COPD with evidence of chronic pulmonary hypertension. 6. No focal infiltrates. 7. Old bilateral healed rib fractures. 8. No pneumothorax. 9. No internal organ injury. 10. Old L2 compression fracture. Report Dictated on Electronically Signed By: Sergio Cunningham MD Electronically Signed Date/Time: 05/14/2025 3:59 AM EDT [facility] CT Cervical spine WO contras ton 05-14-2025 Patient Name: SULLY PERDOMO : 1955 Exam Date/Time: 05/14/2025 03:22 Procedure: CT CERVICAL SPINE WO IV CONTRAST Ordering Provider: CUEVAS NISHIT Reason For Exam: Trauma impaired range of motion of the neck CLINICAL INFORMATION: Fall with head, neck, chest, abdomen, and pelvic pain. Major trauma. CT HEAD: 3 mm axial cuts are obtained through the brain without IV contrast. Dose reduction was employed with automated exposure control. The examination is compared to a previous study dated 06/11/2022. FINDINGS: The ventricles are within normal limits in respect to their size and configuration. There is no evidence of mass or mass-effect. There are no abnormal intra- or extra-axial fluid collections. No hemorrhage is seen. The bone windows demonstrate no evidence of fracture. Chronic inflammatory changes and postoperative changes are noted in the sinuses. A small air-fluid level is noted in the left maxillary sinus. The mastoid air cells are clear. [facility] Sergio Cunningham MD - 05/14/2025 Patient Name: SULLY PERDOMO : 1955 Exam Date/Time: 05/14/2025 03:22 Procedure: CT CERVICAL SPINE WO IV CONTRAST Ordering Provider: CUEVAS NISHIT Reason For Exam: Trauma impaired range of motion of the neck CLINICAL INFORMATION: Fall with head, neck, chest, abdomen, and pelvic pain. Major trauma. CT HEAD: 3 mm axial cuts are obtained through the brain without IV contrast. Dose reduction was employed with automated exposure control. The examination is compared to a previous study dated 06/11/2022. FINDINGS: The ventricles are within normal limits in respect to their size and configuration. There is no evidence of mass or mass-effect. There are no abnormal intra- or extra-axial fluid collections. No hemorrhage is seen. The bone windows demonstrate no evidence of fracture. Chronic inflammatory changes and postoperative changes are noted in the sinuses. A small air-fluid level is noted in the left maxillary sinus. The mastoid air cells are clear. IMPRESSION: 1. No intracranial hemorrhage. 2. Chronic sinusitis. CT C-SPINE: 1 mm axial cuts are obtained through the cervical spine without IV contrast. Sagittal and coronal reconstructions are reviewed. In addition, 3D rendering is performed by nc and reviewed on the [employer] Workstation. Dose reduction was employed with automated exposure control. The examination is compared to a previous MRI dated 04/28/2025. FINDINGS: There is a mild anterolisthesis C4 on C5. The slip is approximately 3 mm. Mild disc space narrowing and spurring are noted at C5-6 and C6-7. Vertebral body heights are maintained. There is no evidence of fracture or traumatic subluxation. IMPRESSION: 1. Moderate degenerative changes. These are stable when compared to the previous MRI. 2. No C-spine fracture or traumatic subluxation. CT CHEST: 1 mm axial cuts through the chest are provided with 75 mL Isovue IV contrast. Dose reduction was employed with automated exposure control. The examination is compared to a previous study dated 07/09/2018. FINDINGS: Advanced emphysematous changes are noted diffusely. Centrilobular emphysema is most pronounced in the lung apices. There are no focal infiltrates. Old healed rib fractures are noted bilaterally. There is no pneumothorax. The heart size is normal. The pulmonary arteries are enlarged consistent with chronic pulmonary hypertension. Mild coronary arterial calcifications are evident. There is no significant mediastinal lymphadenopathy. IMPRESSION: 1. Advanced COPD with evidence of chronic pulmonary hypertension. 2. No focal infiltrates. 3. Old bilateral healed rib fractures. 4. No pneumothorax. CT ABDOMEN: 3 mm axial cuts from the dome of the diaphragm through the iliac crests are provided with 75 mL Isovue IV contrast. Dose reduction was employed with automated exposure control. There are no comparison studies. FINDINGS: There is a small hiatal hernia. The liver and spleen are homogeneous in their attenuation without focal abnormality. The pancreas and adrenal glands are unremarkable. Both kidneys are identified in their cortical phase. Nephrograms enhance symmetrically without abnormality. No free fluid is seen within the abdomen. IMPRESSION: 1. No internal organ injury. CT PELVIS: 3 mm axial cuts from the iliac crests through the symphysis pubis are provided with 75 mL Isovue IV contrast. Dose reduction was employed with automated exposure control. There are no comparison studies. FINDINGS: Air and stool are identified within the colon to the level of the rectum. There is no evidence of obstruction. No free fluid is seen within the pelvis. Sagittal reconstructed images of the spine demonstrate an old L2 compression fracture. This has lost approximately 40% of its height. IMPRESSION: 1. No intracranial hemorrhage. 2. Chronic sinusitis. 3. Moderate degenerative changes in the cervical spine. These are stable when compared to the previous MRI. 4. No C-spine fracture or traumatic subluxation. 5. Advanced COPD with evidence of chronic pulmonary hypertension. 6. No focal infiltrates. 7. Old bilateral healed rib fractures. 8. No pneumothorax. 9. No internal organ injury. 10. Old L2 compression fracture. Report Dictated on Electronically Signed By: Sergio Cunningham MD Electronically Signed Date/Time: 05/14/2025 3:59 AM EDT [facility] Radiology Study observation (narrative) [facility] CT HEAD WO IV CONTRASTon CT HEAD WO IV CONTRAST [facility] 1955 [id number] Exam Date/Time: 05/14/2025 03:22 Procedure: CT HEAD WO IV CONTRAST Ordering Provider: CUEVAS NISHIT Reason For Exam: Trauma/Injury to Head CLINICAL INFORMATION: Fall with head, neck, chest, abdomen, and pelvic pain. Major trauma. CT HEAD: 3 mm axial cuts are obtained through the brain without IV contrast. Dose reduction was employed with automated exposure control. The examination is compared to a previous study dated 06/11/2022. FINDINGS: The ventricles are within normal limits in respect to their size and configuration. There is no evidence of mass or mass-effect. There are no abnormal intra- or extra-axial fluid collections. No hemorrhage is seen. The bone windows demonstrate no evidence of fracture. Chronic inflammatory changes and postoperative changes are noted in the sinuses. A small air-fluid level is noted in the left maxillary sinus. The mastoid air cells are clear. IMPRESSION: 1. No intracranial hemorrhage. 2. Chronic sinusitis. CT C-SPINE: 1 mm axial cuts are obtained through the cervical spine without IV contrast. Sagittal and coronal reconstructions are reviewed. In addition, 3D rendering is performed by nc and reviewed on the [employer] Workstation. Dose reduction was employed with automated exposure control. The examination is compared to a previous MRI dated 04/28/2025. FINDINGS: There is a mild anterolisthesis C4 on C5. The slip is approximately 3 mm. Mild disc space narrowing and spurring are noted at C5-6 and C6-7. Vertebral body heights are maintained. There is no evidence of fracture or traumatic subluxation. IMPRESSION: 1. Moderate degenerative changes. These are stable when compared to the previous MRI. 2. No C-spine fracture or traumatic subluxation. CT CHEST: 1 mm axial cuts through the chest are provided with 75 mL Isovue IV contrast. Dose reduction was employed with automated exposure control. The examination is compared to a previous study dated 07/09/2018. FINDINGS: Advanced emphysematous changes are noted diffusely. Centrilobular emphysema is most pronounced in the lung apices. There are no focal infiltrates. Old healed rib fractures are noted bilaterally. There is no pneumothorax. The heart size is normal. The pulmonary arteries are enlarged consistent with chronic pulmonary hypertension. Mild coronary arterial calcifications are evident. There is no significant mediastinal lymphadenopathy. IMPRESSION: 1. Advanced COPD with evidence of chronic pulmonary hypertension. 2. No focal infiltrates. 3. Old bilateral healed rib fractures. 4. No pneumothorax. CT ABDOMEN: 3 mm axial cuts from the dome of the diaphragm through the iliac crests are provided with 75 mL Isovue IV contrast. Dose reduction was employed with automated exposure control. There are no comparison studies. FINDINGS: There is a small hiatal hernia. The liver and spleen are homogeneous in their attenuation without focal abnormality. The pancreas and adrenal glands are unremarkable. Both kidneys are identified in their cortical phase. Nephrograms enhance symmetrically without abnormality. No free fluid is seen within the abdomen. IMPRESSION: 1. No internal organ injury. CT PELVIS: 3 mm axial cuts from the iliac crests through the symphysis pubis are provided with 75 mL Isovue IV contrast. Dose reduction was employed with automated exposure control. There are no comparison studies. FINDINGS: Air and stool are identified within the colon to the level of the rectum. There is no evidence of obstruction. No free fluid is seen within the pelvis. Sagittal reconstructed images of the spine demonstrate an old L2 compression fracture. This has lost approximately 40% of its height. IMPRESSION: 1. No intracranial hemorrhage. 2. Chronic sinusitis. 3. Moderate degenerative changes in the cervical spine. These are stable when compared to the previous MRI. 4. No C-spine fracture or traumatic subluxation. 5. Advanced COPD with evidence of chronic pulmonary hypertension. 6. No focal infiltrates. 7. Old bilateral healed rib fractures. 8. No pneumothorax. 9. No internal organ injury. 10. Old L2 compression fracture. Report Dictated on Electronically Signed By: Sergio Cunningham MD Electronically Signed Date/Time: 05/14/2025 3:59 AM EDT [facility] CT Head WO contraston 2024 Patient Name: SULLY PERDOMO : 1955 Exam Date/Time: 05/14/2025 03:22 Procedure: CT HEAD WO IV CONTRAST Ordering Provider: CUEVAS NISHIT Reason For Exam: Trauma/Injury to Head CLINICAL INFORMATION: Fall with head, neck, chest, abdomen, and pelvic pain. Major trauma. CT HEAD: 3 mm axial cuts are obtained through the brain without IV contrast. Dose reduction was employed with automated exposure control. The examination is compared to a previous study dated 06/11/2022. FINDINGS: The ventricles are within normal limits in respect to their size and configuration. There is no evidence of mass or mass-effect. There are no abnormal intra- or extra-axial fluid collections. No hemorrhage is seen. The bone windows demonstrate no evidence of fracture. Chronic inflammatory changes and postoperative changes are noted in the sinuses. A small air-fluid level is noted in the left maxillary sinus. The mastoid air cells are clear. [facility] RADIOLOGY [facility] Sergio Cunningham MD - 05/14/2025 Patient Name: SULLY PERDOMO : 1955 Exam Date/Time: 05/14/2025 03:22 Procedure: CT HEAD WO IV CONTRAST Ordering Provider: CUEVAS NISHIT Reason For Exam: Trauma/Injury to Head CLINICAL INFORMATION: Fall with head, neck, chest, abdomen, and pelvic pain. Major trauma. CT HEAD: 3 mm axial cuts are obtained through the brain without IV contrast. Dose reduction was employed with automated exposure control. The examination is compared to a previous study dated 06/11/2022. FINDINGS: The ventricles are within normal limits in respect to their size and configuration. There is no evidence of mass or mass-effect. There are no abnormal intra- or extra-axial fluid collections. No hemorrhage is seen. The bone windows demonstrate no evidence of fracture. Chronic inflammatory changes and postoperative changes are noted in the sinuses. A small air-fluid level is noted in the left maxillary sinus. The mastoid air cells are clear. IMPRESSION: 1. No intracranial hemorrhage. 2. Chronic sinusitis. CT C-SPINE: 1 mm axial cuts are obtained through the cervical spine without IV contrast. Sagittal and coronal reconstructions are reviewed. In addition, 3D rendering is performed by me and reviewed on the [employer] Workstation. Dose reduction was employed with automated exposure control. The examination is compared to a previous MRI dated 04/28/2025. FINDINGS: There is a mild anterolisthesis C4 on C5. The slip is approximately 3 mm. Mild disc space narrowing and spurring are noted at C5-6 and C6-7. Vertebral body heights are maintained. There is no evidence of fracture or traumatic subluxation. IMPRESSION: 1. Moderate degenerative changes. These are stable when compared to the previous MRI. 2. No C-spine fracture or traumatic subluxation. CT CHEST: 1 mm axial cuts through the chest are provided with 75 mL Isovue IV contrast. Dose reduction was employed with automated exposure control. The examination is compared to a previous study dated 07/09/2018. FINDINGS: Advanced emphysematous changes are noted diffusely. Centrilobular emphysema is most pronounced in the lung apices. There are no focal infiltrates. Old healed rib fractures are noted bilaterally. There is no pneumothorax. The heart size is normal. The pulmonary arteries are enlarged consistent with chronic pulmonary hypertension. Mild coronary arterial calcifications are evident. There is no significant mediastinal lymphadenopathy. IMPRESSION: 1. Advanced COPD with evidence of chronic pulmonary hypertension. 2. No focal infiltrates. 3. Old bilateral healed rib fractures. 4. No pneumothorax. CT ABDOMEN: 3 mm axial cuts from the dome of the diaphragm through the iliac crests are provided with 75 mL Isovue IV contrast. Dose reduction was employed with automated exposure control. There are no comparison studies. FINDINGS: There is a small hiatal hernia. The liver and spleen are homogeneous in their attenuation without focal abnormality. The pancreas and adrenal glands are unremarkable. Both kidneys are identified in their cortical phase. Nephrograms enhance symmetrically without abnormality. No free fluid is seen within the abdomen. IMPRESSION: 1. No internal organ injury. CT PELVIS: 3 mm axial cuts from the iliac crests through the symphysis pubis are provided with 75 mL Isovue IV contrast. Dose reduction was employed with automated exposure control. There are no comparison studies. FINDINGS: Air and stool are identified within the colon to the level of the rectum. There is no evidence of obstruction. No free fluid is seen within the pelvis. Sagittal reconstructed images of the spine demonstrate an old L2 compression fracture. This has lost approximately 40% of its height. IMPRESSION: 1. No intracranial hemorrhage. 2. Chronic sinusitis. 3. Moderate degenerative changes in the cervical spine. These are stable when compared to the previous MRI. 4. No C-spine fracture or traumatic subluxation. 5. Advanced COPD with evidence of chronic pulmonary hypertension. 6. No focal infiltrates. 7. Old bilateral healed rib fractures. 8. No pneumothorax. 9. No internal organ injury. 10. Old L2 compression fracture. Report Dictated on Electronically Signed By: Sergio Cunningham MD Electronically Signed Date/Time: 05/14/2025 3:59 AM EDT [facility] Radiology Study observation (narrative) [facility] Comprehensive metabolic 1998 panelon 05-14-2025 Albumin [Mass/Vol] 3.8 g/dL 3.4 - 4.8 g/dL [facility] ALP [Catalytic activity/Vol] 57 U/L 40 - 150 U/L [facility] ALT [Catalytic activity/Vol] 17 [facility] Anion gap [Moles/Vol] 6 mmol/L 3 - 13 mmol/L [facility] AST [Catalytic activity/Vol] 23 U/L [facility] - 34 U/L [facility] Bilirubin [Mass/Vol] 0.2 mg/dL [facility] - 1.2 mg/dL [facility] Calcium [Mass/Vol] 9.1 mg/dL 8.8 - 10. 0 mg/dL [facility] Chloride [Moles/Vol] 109 mmol/L High 98 - 10 7 mmol/L [facility] CO2 [Moles/Vol] 27 mmol/L 23 - 31 mmol/L [facility] Creatinine [Mass/Vol] 0.59 mg/dL 0.57 - 1.11 mg/dL [facility] GFR/1.73 sq M.predicted (S/P/Bld) [Vol rate/Area] - PINF [facility] Comment on above: Calculation based on the Chronic Kidney Disease Epidemiology Collaboration (CKD-EPI) equation refit without adjustment for race Glucose [Mass/Vol] 101 mg/dL 82 - 115 mg/dL [facility] Interpretation and review of laboratory results Abnormal [facility] Potassium [Moles/Vol] 4.7 mmol/L 3.5 - 5.1 mmol/L [facility] Comment on above: Plasma potassium conrado ues may be up to 0.5 mmol/L lower than serum values. Protein [Mass/Vol] 6.7 g/dL 6.4 - 8.3 g/dL [facility] Sodium [Moles/Vol] 142 mmol/L 136 - 145 mmol/L [facility] Urea nitrogen [Mass/Vol] 8 mg/dL Low 9 - 23 mg/dL [facility] ED Nursing Noteon 05-14-2025 ED Nursing Note The patient was brought in via ambulance. She is complaining of having a fall at home. She stated she tripped over her oxygen tubing and fell to the floor. She stated her left ribs are hurting. She is observed with a cough that is chronic per patient. The patient was placed on 2 liters of oxygen due to spo2 80% on room air. The patient stated typically she is 94% on room air and only uses oxygen at bed time. Normal [facility] ED Provider Noteon ED Provider Note EMERGENCY DEPARTMENT ENCOUNTER Pt Name: Sully Perdomo Birthdate 1955 Date of evaluation: 05/14/2025 CHIEF COMPLAINT Chief Complaint Patient presents with Fall HISTORY OF PRESENT ILLNESS HPI Sully Perdomo is a 69 y.o. female who presents to the emergency department after falling. She injured her head left side of the ribs. She was able to get up and walk after she fell. She is on oxygen at nighttime 2 L nasal cannula. She has shortness of breath. Cough with yellow sputum production. Has pain in her left flank. Pain gets severe. No nausea no vomiting. No diarrhea no constipation. She did have some alcohol tonight. She was hypoxemic to 80% on room air. REVIEW OF SYSTEMS Review of Systems Past Medical History: No date: Arthritis No date: Back pain No date: Chronic cervical pain No date: Chronic pain of left hand No date: Hypertension No date: Knee pain, right Past Surgical History: No date: APPENDECTOMY 06/01/2019: CARDIAC PROCEDURE Comment: Non obstructive CAD with mild calcium in the proximal RCA and proximal LAD. No date: ELBOW SURGERY No date: HEMORRHOID SURGERY 06/11/2019: HIP SURGERY; Right No date: SHOULDER SURGERY No date: SINUS SURGERY No date: TONSILLECTOMY (HISTORICAL) CURRENT MEDICATIONS Discharge Medication List as of 05/14/2025 4:10 AM CONTINUE these medications which have NOT CHANGED Details albuterol (2.5 MG/3ML) 0.083% nebulizer solution albuterol sulfate 2.5 mg/3 mL (0.083 %) solution for nebulization, Historical Med albuterol 108 (90 Base) MCG/ACT inhaler every 4 hours., Starting Thu06/26/2022, Historical Med alendronate (Fosamax) 70 MG tablet 1 tablet 30 minutes before the first food, beverage or medicine of the day with plain water Orally Once a week for 84, Historical Med ALPRAZolam (Xanax) 1 MG tablet alprazolam 1 mg tablet, Historical Med amLODIPine (Norvasc) 10 MG tablet Take 10 mg by mouth daily., Starting Thu09/19/2022, Historical Med azithromycin (Zithromax) 250 MG tablet Every 24 hours., Starting Thu11/25/2022, Historical Med busPIRone (Buspar) 10 MG tablet Starting Thu12/07/2022, Historical Med cefdinir (Omnicef) 300 MG capsule Take 300 mg by mouth 2 times daily., Starting Thu05/22/2022, Historical Med clarithromycin (Biaxin) 500 MG tablet clarithromycin 500 mg tablet, Historical Med clindamycin (Cleocin) 150 MG capsule take 1 capsule by mouth twice a day until finished, Historical Med clonazePAM (KlonoPIN) 0.5 MG tablet Take 0.5 mg by mouth Nightly., Starting Thu11/12/2022, Historical Med cyclobenzaprine (Flexeril) 5 MG tablet every 12 hours., Historical Med dexAMETHasone (Decadron) 6 MG tablet Take 1 tablet (6 mg) by mouth daily for 5 days., Starting Thu10/14/2024, Until Thu10/19/2024, Normal doxycycline (Vibra-Tabs) 100 MG tablet Take 100 mg by mouth 2 times daily., Starting Thu12/20/2021, Historical Med escitalopram (Lexapro) 10 MG tablet Starting Thu12/07/2022, Historical Med fluticasone (Flonase) 50 MCG/ACT nasal spray INSTILL 2 SPRAYS INTO EACH NOSTRIL DAILY, Starting Thu02/20/2025, Normal Fluticasone-Umeclidin -Vilant (Trelegy Ellipta) 100-62.5-25 MCG/ACT aerosol powder 1 puff Every 24 hours., Historical Med guaiFENesin (Mucinex) 600 MG 12 hr tablet Take 1 tablet by mouth every 12 hours as needed., Historical Med HYDROcodone-acetamino phen ([place]) 5-325 MG tablet take 1 tablet by mouth every 4 to 6 hours WHILE AWAKE if needed for POST OP PAIN for 3 days, Historical Med hydrOXYzine HCl (Atarax) 25 MG tablet take 3 tablets by mouth at bedtime if needed, Historical Med lisinopril-hydroCHLOR Othiazide 10-12.5 MG tablet Take 1 tablet by mouth daily., Starting Thu10/10/2024, Until Thu11/09/2024, Historical Med loratadine (Claritin) 10 MG tablet Take 1 tablet by mouth daily., Historical Med meclizine (Antivert) 25 MG tablet every 8 hours., Historical Med montelukast (Singulair) 10 MG tablet Every 24 hours., Starting Thu11/25/2022, Historical Med omeprazole (PriLOSEC) [address] capsule take 1 capsule by mouth once daily ON AN EMPTY STOMACH AT LEAST 30 MINUTES BEFORE EATING, Historical Med oxyCODONE-acetaminoph en (Percocet) 5-325 MG tablet take 1 tablet by mouth every 4 to 6 hours if needed FOR POST-OP PAIN WHILE AWAKE, Historical Med pseudoephedrine (Sudafed) 30 MG tablet Take 1 tablet (30 mg) by mouth every 6 hours as needed for congestion., Starting Thu10/14/2024, Normal ramelteon (Rozerem) 8 MG tablet take 1/2 tablet by mouth at bedtime for 2 NIGHTS then take 1 tablet by mouth at bedtime, Historical Med traMADol (Ultram) 50 MG tablet take 1 tablet by mouth every 4 hours if needed, Historical Med traZODone (Desyrel) 50 MG tablet Starting 12/07/2022, Historical Med ALLERGIES Escitalopram, Levofloxacin, Levofloxacin in d5w, Sulfa antibiotics, Budesonide, Doxycycline, Codeine, Tetracycline, Trimethoprim, and Penicillins SOCIAL HISTORY Social History Socioeconomic History (more content not included)... Normal [facility] LACTIC ACID WITH REFLEXon Lactate [Moles/Vol] 1.0 mmol/L Normal 0.5-2.2 [facility] Comment on above: Performed By: #### L [id number] ####Heart Doctor: ANA HIGGINS ([id number])[facility] ([facility])[address] [place] [address] LIPASEon 05-14-2025 Lipase [Catalytic activity/Vol] 49 U/L Normal <55 [facility] Comment on above: Performed By: #### L [id number], [id number] ####Heart Doctor: ANA HIGGINS ([id number])[facility] ([facility])[address] [place] [address] Laboratory - Chemistry and C hemistry - challengeOrdered By: Grazyna Bowen on 05-14-2025 CO2 [Moles/Vol] 28 mmol/L 24.0 - 28.0 mmol/L [facility] HCO3 (Bld) [Moles/Vol] 26.3 mmol/L 23.0 - 27.0 mmol/L [facility] Oxygen (Bld) [Partial pressure] 45 mm[Hg] mm(Hg) [facility] pH (Bld) 7.349 [pH] 7.310 - 7.410 [facility] Laboratory - Chemistry and C hemistry - challengeon 05-14-2025 Lipase [Catalytic activity/Vol] 49 U/L NINF - 55 U/L [facility] Lactate [Moles/Vol] 1 mmol/L 0.5 - 2. 2 mmol/L [facility] Laboratory - Coagulationon 0 05-14-2025 PT Coag (Bld) [Time] 9.9 s 9.0 - 1 2.0 s [facility] Lipase [Catalytic activity/V ol]on 05-14-2025 Interpretation and review of laboratory results Normal [facility] NT PRO BNPon 05-14-2025 Natriuretic peptide B (Bld) [Mass/Vol] 34 pg/mL Normal <125 [facility] Comment on above: Performed By: #### L [id number] ####Heart Doctor: ANA HIGGINS ([id number])[facility] ([facility])[address] [place] [address] Natriuretic peptide B [Mass/ Vol]on 05-14-2025 Interpretation and review of laboratory results Normal [facility] Natriuretic peptide B (Bld) [Mass/Vol] 34 pg/mL NINF - 125 pg/mL [facility] No Panel Informationon 05-14 1. No intracranial hemorrhage. 2. Chronic sinusitis. CT C-SPINE: 1 mm axial cuts are obtained through the cervical spine without IV contrast. Sagittal and coronal reconstructions are reviewed. In addition, 3D rendering is performed by nc and reviewed on the [employer] Workstation. Dose reduction was employed with automated exposure control. The examination is compared to a previous MRI dated 04/28/2025. FINDINGS: There is a mild anterolisthesis C4 on C5. The slip is approximately 3 mm. Mild disc space narrowing and spurring are noted at C5-6 and C6-7. Vertebral body heights are maintained. There is no evidence of fracture or traumatic subluxation. IMPRESSION: 1. Moderate degenerative changes. These are stable when compared to the previous MRI. 2. No C-spine fracture or traumatic subluxation. CT CHEST: 1 mm axial cuts through the chest are provided with 75 mL Isovue IV contrast. Dose reduction was employed with automated exposure control. The examination is compared to a previous study dated 07/09/2018. FINDINGS: Advanced emphysematous changes are noted diffusely. Centrilobular emphysema is most pronounced in the lung apices. There are no focal infiltrates. Old healed rib fractures are noted bilaterally. There is no pneumothorax. The heart size is normal. The pulmonary arteries are enlarged consistent with chronic pulmonary hypertension. Mild coronary arterial calcifications are evident. There is no significant mediastinal lymphadenopathy. IMPRESSION: 1. Advanced COPD with evidence of chronic pulmonary hypertension. 2. No focal infiltrates. 3. Old bilateral healed rib fractures. 4. No pneumothorax. CT ABDOMEN: 3 mm axial cuts from the dome of the diaphragm through the iliac crests are provided with 75 mL Isovue IV contrast. Dose reduction was employed with automated exposure control. There are no comparison studies. FINDINGS: There is a small hiatal hernia. The liver and spleen are homogeneous in their attenuation without focal abnormality. The pancreas and adrenal glands are unremarkable. Both kidneys are identified in their cortical phase. Nephrograms enhance symmetrically without abnormality. No free fluid is seen within the abdomen. IMPRESSION: 1. No internal organ injury. CT PELVIS: 3 mm axial cuts from the iliac crests through the symphysis pubis are provided with 75 mL Isovue IV contrast. Dose reduction was employed with automated exposure control. There are no comparison studies. FINDINGS: Air and stool are identified within the colon to the level of the rectum. There is no evidence of obstruction. No free fluid is seen within the pelvis. Sagittal reconstructed images of the spine demonstrate an old L2 compression fracture. This has lost approximately 40% of its height. IMPRESSION: 1. No intracranial hemorrhage. 2. Chronic sinusitis. 3. Moderate degenerative changes in the cervical spine. These are stable when compared to the previous MRI. 4. No C-spine fracture or traumatic subluxation. 5. Advanced COPD with evidence of chronic pulmonary hypertension. 6. No focal infiltrates. 7. Old bilateral healed rib fractures. 8. No pneumothorax. 9. No internal organ injury. 10. Old L2 compression fracture. Report Dictated on Electronically Signed By: Sergio Cunningham MD Electronically Signed Date/Time: 05/14/2025 3:59 AM [facility] [employer] Interpretation and review of laboratory results Normal [facility] [employer] No Panel InformationOrdered By: Sergio Cunningham on 05-14-2025 [employer] Work Phone: No Panel InformationOrdered By: rGazyna Bowen on 05-14-2025 [facility] 2 [facility] EXCESS 1 mmol/L -3.0 - 3.0 mmol/L [facility] [employer] pCO2 48 [facility] Source Of Oxygen Nasal Cannula (LPM) [facility] Simmery [employer] PROTHROMBIN TIMEon INR Coag (PPP) [Relative time] {INR} Low 0.9-1.1 [facility] Comment on above: Result Comment: Ernie mmended Anticoagulant Therapy: SEE BELOW ----- INR of 2.0 [...] therapy is used to prevent Myocardial Infarction This result was previously suppressed from the chart. Performed By: #### L [id number], [id number] ####Heart Doctor: ANA HIGGINS ([id number])[facility] [employer] (SWRLAB)[address] [place] [address] PT Coag (PPP) [Time] 9.9 s Normal 9.0-12.[address] [facility] Comment on above: Performed By: #### L [id number], [id number] ####Heart Doctor: ANA HIGGINS ([id number])[facility] [employer] (SWRL[employer])[address] [place] [address] PT Coag (Bld) [Time]on 05-14 INR Coag (PPP) [Relative time] Low 0.9 - 1.1 [facility] Comment on above: Recommended Anticoag ulant Therapy: [...] therapy is used to prevent Myocardial Infarction This result was previously suppressed from the chart. Interpretation and review of laboratory results Abnormal [facility] Urinalysis complete panel (U )on 05-14-2025 Bilirubin Ql (U) Negative Negative mg/dL [facility] Clarity (U) Clear Clear [facility] Color (U) Colorless Lt. Yellow [facility] Glucose Ql (U) Normal Normal (<70) mg/dL [facility] Hemoglobin Ql (U) Negative Negative mg/dL [facility] Interpretation and review of laboratory results Normal [facility] Ketones (U) [Mass/Vol] Negative Negat lacy mg/dL [facility] Leukocyte esterase Test strip Ql (U) Negative Negative Shashank/uL [facility] Nitrite Ql (U) Negative Negative [facility] pH (U) 5.5 [pH] 5.0 - 8.0 pH [facility] [employer] Protein (U) [Mass/Vol] Negative Negat lacy mg/dL [facility] [employer] Specific gravity (U) [Rel density] 1.006 1.005 - 1.030 [facility] [employer] Urobilinogen (U) [Mass/Vol] Normal Normal (0-1) mg/dL [facility] A specimen with <=10 WBC is not consistent with inflammation. This specimen will not reflex to a urine culture. [facility] Vital signsOrdered By: Grazyna Bowen on 05-14-2025 Oxygen saturation in Blood 78 % 6 0.0 - 80.0 % [facility] [employer] aPTT Coag (Bld) [Time]on aPTT Coag (PPP) [Time] 25.4 s 20.0 - 30.5 s [facility] [employer] NOTE: The therapeuti c time for Heparin anticoagulation, based on Xa activity inhibition, is an APTT of 46-80 seconds. [facility] [employer] Relevant diagnostic tests/la boratory data Narrativeon 05-12-2025 EMG HX of the Left upper limb on 03/13/2025 at [facility], [facility] [employer] [facility]. Work Phone: Fall risk assessment yes [facility] Work Phone: MEDS REVIEW Documentation of current medications (procedure) [employer] Work Phone: MEDS REVIEWD Medications reviewed with changes [employer] Work Phone: Pal [facility] ([id number]) 1955 F Date Time Provider Department 05/02/25 BO AGUILLON [facility] During your visit today, we recorded the following information about you: Kerrie Johnson 05/02/2025 5:30 PM Signed Incoming referral from PCP for Dr Yamileth Aguillon for Cervical djd/ddd causing effacement of neural foramina and contact with cord. Called to schedule. No answer. Left VM to call back and schedule appointment. EMG and MRI Cervical [facility] requested. Kerrieanais Johnson May 02, 2025 5:30 PM AlejandroTerenceKerrie D 05/05/2025 4:55 PM Signed 2nd voice mail left to call in and schedule with Dr Aguillon Kerrieele Johnson May 05, 2025 4:55 PM Allergies As of Date: 05/02/2025 Noted Allergy Reaction ESCITALOPRAM 12/16/2022 10 - [...] Assessed Reason for Visit: Appointment [186] Cmt: Leading Reach incoming referral Prescriptions as of 05/05/2025 - omeprazole (PRILOSEC) 20 mg capsule take [...] Ferrari RN Problem List As Of Date 05/02/2025 Noted Resolved Cerebral aneurysm, nonruptured (HCC) [I67.1] 01/02/2025 03/06/2025 Personal history of tobacco use [Z87.891] 01/02/2025 Nicotine dependence, cigarettes, uncomplicated *01/02/2025 Encounter Status:Closed by KERRIE JOHNSON on 05/02/25 Normal [facility] MR Cervical spine WO contras ton 04-28-2025 1. Cervical spondylosis as described Report Dictated on Electronically Signed By: Foreign Sandoval MD Electronically Signed Date/Time: 04/28/2025 3:50 PM [facility] [employer] 1955 [id number] Exam Date/Time: 04/28/2025 08:18 Procedure: MR CERVICAL SPINE WO CONTRAST Ordering Provider: MARTÍNEZ RICHARD Reason For Exam: m54.2 neck pain EXAM: MR CERVICAL SPINE WO CONTRAST CLINICAL HISTORY: m54.2 neck pain. Left-sided neck pain and numbness radiating down arm. TECHNIQUE: Multiplanar, multisequence MRI of the cervical spine without contrast. COMPARISON: None FINDINGS: Craniocervical junction: Within normal limits. Soft tissues: No prevertebral or paraspinal edema. Alignment: There is grade 1 anterolisthesis of C4 on C5. Cord: Normal morphology and signal intensity. Vertebrae: Normal vertebral marrow signal intensity. No compression deformities or osseous lesions. Canal and foramina: C2-C3: Canal and foramina are patent. C3-C4: There is facet hypertrophy. There is moderate left-sided neural foraminal narrowing C4-C5: Anterolisthesis with associated disc bulging is noted. There is partial effacement of ventral thecal sac with contact the ventral aspect of the overlying cord. Neural foramen appear patent C5-C6: Disc osteophyte complex effaces the ventral thecal sac and contacts the ventral aspect of the overlying cord there is mild bilateral neural foraminal narrowing C6-C7: Disc osteophyte complex and facet hypertrophy is noted. There is effacement of the right ventral thecal sac without effect on the overlying cord. There is moderate bilateral neural foraminal narrowing C7-T1: Canal and foramina are patent. [facility] Foreign Sandoval MD - 04/28/2025 Patient Name: [facility]ULLY [facility] : 1955 [id number] Exam Date/Time: 04/28/2025 08:18 Procedure: MR CERVICAL SPINE WO CONTRAST Ordering Provider: MARTÍNEZ RICHARD Reason For Exam: m54.2 neck pain EXAM: MR CERVICAL SPINE WO CONTRAST CLINICAL HISTORY: m54.2 neck pain. Left-sided neck pain and numbness radiating down arm. TECHNIQUE: Multiplanar, multisequence MRI of the cervical spine without contrast. COMPARISON: None FINDINGS: Craniocervical junction: Within normal limits. Soft tissues: No prevertebral or paraspinal edema. Alignment: There is grade 1 anterolisthesis of C4 on C5. Cord: Normal morphology and signal intensity. Vertebrae: Normal vertebral marrow signal intensity. No compression deformities or osseous lesions. Canal and foramina: C2-C3: Canal and foramina are patent. C3-C4: There is facet hypertrophy. There is moderate left-sided neural foraminal narrowing C4-C5: Anterolisthesis with associated disc bulging is noted. There is partial effacement of ventral thecal sac with contact the ventral aspect of the overlying cord. Neural foramen appear patent C5-C6: Disc osteophyte complex effaces the ventral thecal sac and contacts the ventral aspect of the overlying cord there is mild bilateral neural foraminal narrowing C6-C7: Disc osteophyte complex and facet hypertrophy is noted. There is effacement of the right ventral thecal sac without effect on the overlying cord. There is moderate bilateral neural foraminal narrowing C7-T1: Canal and foramina are patent. IMPRESSION: 1. Cervical spondylosis as described Report Dictated on Electronically Signed By: Foreign Sandoval MD Electronically Signed Date/Time: 04/28/2025 3:50 PM EDT [facility] Radiology Study observation (narrative) [facility] MR Cervical spine WO sunny tOrdered By: Foreign Sandoval on 04-28-2025 [facility] [employer] Work Phone: FEMIVielka 04-17-2025 [facility] SULLY PERDOMO ([id number]) 1955 F Date Time Provider Department 04/17/25 GOPI BESS [facility] During your visit today, we recorded the following information about you: Stephan Fowler RN 04/17/2025 1:35 PM Signed Spoke with patient regarding rescheduling diagnostic angiogram with Dr. Bess. Patient stated she is going to have surgery and will call to schedule DSA. Provided call back number. 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] Prescriptions as of 04/17/2025 - omeprazole (PRILOSEC) 20 mg capsule take [...] Ferrari RN Problem List As Of Date 04/17/2025 Noted Resolved Cerebral aneurysm, nonruptured (HCC) [I67.1] 01/02/2025 03/06/2025 Personal history of tobacco use [Z87.891] 01/02/2025 Nicotine dependence, cigarettes, uncomplicated *01/02/2025 Encounter Status:Closed by STEPHAN FOWLER on 04/17/25 Normal [facility] Pulmonary Visit Reporton Pulmonary Visit Report [facility] Pulmonary Medicine of [address] [place] [address] OFFICE VISIT Date of Service: 03/23/25 MR#: [id number] Acct: [id number] Name: SULLY PERDOMO STEPHAN Rep #: [id number] : 1955 Provider: OLIVE Gilman Age/Sex: 69/F [facility] Status: Signed with Addenda ADDENDUM by OLIVE Gilman on 04/18/25 at 0914 Assessment and Plan Assessment and Plan (1) Asthma-COPD overlap syndrome: Status: Chronic Plan: Tried and failed calhoun cough therapy. (2) Daytime hypersomnia: Status: Acute (3) Hypoxia: Status: Chronic (4) Smoking greater than 40 pack years: Status: Chronic Comment: currently 3 cigarettes/day Orders: Orders Low Dose CT Lung Screening 03/07/26 F17.200 - Nicotine dependence, unspecified, uncomplicated, F17.210 - Nicotine dependence, cigarettes, uncomplicated Medications: Refilled fluticasone-umeclidin -vilanter 200-62.5-25 mcg (Trelegy Ellipta) 1 inh inhalation DAILY 60 ea 6RF Plan Details Follow Up: 4 Months 04/18/25 0914 Date Ana Gilman NP [employer] HR GENERALIST-C cc: Dr. Jeremiah Martínez MD * Signed ADDENDUM by HUMAN RESOURCES HR GENERALISTLyudmila Gilman on 04/06/25 at 0945 Assessment and Plan Assessment and Plan (1) Asthma-COPD overlap syndrome: Status: Chronic (2) Daytime hypersomnia: Status: Acute (3) Hypoxia: Status: Chronic (4) Smoking greater than 40 pack years: Status: Chronic Comment: currently 3 cigarettes/day (5) Bronchiectasis: Status: Chronic Qualifiers: Bronchiectasis type: uncomplicated Qualified Code(s): J47.9 - Bronchiectasis, uncomplicated Comment: CT chest 03/17/25 RLL Plan: Chest imaging personally reviewed by myself, bronchiectasis noted in the right lower lobe from a CT of the chest completed on March 17, 2025. Orders: Orders Low Dose CT Lung Screening 03/07/26 F17.200 - Nicotine dependence, unspecified, uncomplicated, F17.210 - Nicotine dependence, cigarettes, uncomplicated Medications: Refilled fluticasone-umeclidin -vilanter 200-62.5-25 mcg (Trelegy Ellipta) 1 inh inhalation DAILY 60 ea 6RF Plan Details Follow Up: 4 Months 04/06/25 0945 Date Ana Gilman NP [employer] HR GENERALISTLyudmila cc: Dr. Jeremiah Martínez MD * Signed Assessment and Plan Assessment and Plan (1) Asthma-COPD overlap syndrome: Status: Chronic Plan: CT of the chest completed in September 2024, personally reviewed imaging, documents bronchiectasis bilateral bases. She has had a daily productive cough for greater than 6 months and had several exacerbations requiring antibiotics this year. I am going to escalate her care by placing her on a chest physiotherapy vest. This patient has a frail frame and I do not believe that she would be able to tolerate percussion, and she does not have a skilled medical provider available to her home to complete this. I am going to continue triple therapy with the use of Trelegy. She is encouraged to continue nebulized DuoNebs and or albuterol. Continue Daliresp. She has been encouraged to contact the office if her symptoms worsen or if new symptoms are presented. Follow-up in the office in 4 months. Consider repeating eosinophil check in the future to see if the patient would qualify for Dupixent or Nucala for COPD. (2) Daytime hypersomnia: Status: Acute Plan: Polysomnogram has not been scheduled yet as the patient has been suffering severe nerve pain in her bilateral wrists. She is undergoing a workup and potentially surgery. She does not believe that she would be able to sleep during a test. She will get it scheduled is soon as possible. I still suspect obstructive sleep apnea with COPD overlap syndrome. (3) Hypoxia: Status: Chronic Plan: She is using and benefiting from supple oxygen. She is titrating as needed to maintain saturations 89 to 92%. (4) Smoking greater than 40 pack years: Status: Chronic Comment: currently 3 cigarettes/day Plan: Most recent diagnostic CT of the chest did not show any concerning nodules, only calcified granulomas. Therefore, it would be appropriate to plan for LDCT in 12 months. This has been ordered accordingly. Orders: Orders Low Dose CT Lung Screening 03/07/26 F17.200 - Nicotine dependence, unspecified, uncomplicated, F17.210 - Nicotine dependence, cigarettes, uncomplicated Medications: Refilled fluticasone-umeclidin -vilanter 200-62.5-25 mcg (Trelegy Ellipta) 1 inh inhalation DAILY 60 ea 6RF Plan Details Additional Comments: This note was generated with [employer] dictation software. It may contain incorrect words, spelling, and punctuation that were not noted in checking the note before signing. Follow Up: 4 Months HPI 3 M FU Chief Complaint: test results HPI Comments (more content not included)... Normal [facility] Chest without Contraston Chest without Contrast [facility] Services [address] [place] [address] [place], [place] [address] Chest without Contrast MR#: [id number] Acct: [id number] Name: SULLY PERDOMO STEPHAN Rep #: [id number] : 1955 F 69 From: Gavin shah MD PCP: Dr. Jeremiah Martínez MD Status: REG CLI Study: Chest without Contrast Date of Exam: 03/17/25 Exam# [id number] Ordering Dr: Ana Gilman NP [employer] HR GENERALIST-aDwson PROCEDURE: CHEST WITHOUT CONTRAST 03/17/2025 REASON FOR EXAM: PULMONARY NODULES IN A SMOKER TECHNIQUE: Chest CT without contrast. Coronal and Sagittal reconstruction series were provided. One or more dose reduction techniques were used (e.g., Automated exposure control, adjustment of the mA and/or kV according to patient size, use of iterative reconstruction technique RADIATION DOSE SUMMARY: CTDlvol: 6.04 mGy DLP: 243.19 mGycm COMPARISON: Prior CT scan of the chest dated September 23, 2024. FINDINGS: Hardware: None Lymph nodes: Tiny benign-appearing mediastinal lymph nodes. Heart and Vasculature: The heart is nonenlarged. Coronary Artery Calcifications: Present Lungs and Airways: Advanced emphysematous changes are present. Multiple calcified granulomas in the right lung. These are unchanged. Pleura: No pleural effusion. Upper Abdomen: Unremarkable Bones: Degenerative changes of the thoracic spine. CT/Chest without Contrast IMPRESSION: Coronary artery calcification (CAC) is is present Emphysematous changes. Stable examination. Multiple calcified granulomas in the right lung. Reading Location: [place] [address] CC: OLIVE Gilman; Dr. Jeremiah Martínez MD Event Marketing Manager: Signed Normal [facility] 03-15-2025 [facility] Telephone (NIQ) SULLY PERDOMO ([id number]) 1955 F Date Time Provider Department 03/15/25 GOPI BESS During your visit today, we recorded the following information about you: Bonita Henriquez 03/15/2025 11:36 AM Signed CV PHONE Name of caller : Sully Relationship to patient : Self If not self Will need patient permission to release results or disclose health information with called documented in fyi. Patient identified by Name and Date of . ( Sully Perdomo, 1955). Yes Number to return call [phone] Reason for Call: Patient is calling to inform office needs to cancel procedure for tomorrow until further notice. Patent has another procedure she needs to complete. Please call [phone] to assist JASMIN. Stephan Fowler, RN 03/15/2025 11:47 AM Signed Spoke with patient and she stated she has to have surgery and would like to cancel angiogram for tomorrow 03/16/25. Will send message to [place] NIL team. Patient will call back to reschedule. Allergies As of Date: 03/15/2025 Noted Allergy Reaction ESCITALOPRAM 12/16/2022 10 - [...] MA - Fully Assessed Reason for Visit: Patient Update [1234] Prescriptions as of 04/06/2025 - omeprazole (PRILOSEC) 20 mg capsule take [...] Ferrari RN Problem List As Of Date 03/15/2025 Noted Resolved Cerebral aneurysm, nonruptured (HCC) [I67.1] 01/02/2025 03/06/2025 Personal history of tobacco use [Z87.891] 01/02/2025 Nicotine dependence, cigarettes, uncomplicated *01/02/2025 Encounter Status:Closed by BONITA HENRIQUEZ on 04/06/25 Normal [facility] XR Cervical spine 2 or 3 Vie wson 03-06-2025 Patient Name: SULLY PERDOMO : 1955 Exam Date/Time: 03/03/2025 09:24 Procedure: XR CERVICAL SPINE 2-3 VIEWS Ordering Provider: MARTÍNEZ RICHARD Reason For Exam: m54.2 CLINICAL INFORMATION: Neck pain. Left upper extremity radiculopathy. AP, lateral, and odontoid views of the cervical spine are provided. The examination is compared to a previous study dated 03/21/2019. FINDINGS: There is a mild anterolisthesis C4 on C5. The slip is approximately 3 mm. Mild disc space narrowing is noted at C5-6 and C6-7. Vertebral body heights are maintained. There is no fracture or dislocation. The visualized soft tissues are normal. The very lung apices are clear. [facility] Sergio Cunningham MD - 03/06/2025 Patient Name: SULLY PERDOMO : 1955 Exam Date/Time: 03/03/2025 09:24 Procedure: XR CERVICAL SPINE 2-3 VIEWS Ordering Provider: MARTÍNEZ RICHARD Reason For Exam: m54.2 CLINICAL INFORMATION: Neck pain. Left upper extremity radiculopathy. AP, lateral, and odontoid views of the cervical spine are provided. The examination is compared to a previous study dated 03/21/2019. FINDINGS: There is a mild anterolisthesis C4 on C5. The slip is approximately 3 mm. Mild disc space narrowing is noted at C5-6 and C6-7. Vertebral body heights are maintained. There is no fracture or dislocation. The visualized soft tissues are normal. The very lung apices are clear. IMPRESSION: 1. Mild degenerative changes in the mid cervical spine. These have progressed mildly when compared to the previous study (6 years prior). 2. No acute radiographic findings. Report Dictated on Electronically Signed By: Sergio Cunningham MD Electronically Signed Date/Time: 03/06/2025 8:56 PM EDT [facility] Cervical spine 2 or 3 Vie wsOrdered By: Sergio Cunningham on 03-06-2025 [employer] Work Phone: 36on 03-04-2025 36 S: Patient spoke wit h [facility] nurse regarding low potassium from October lab work. B: Onset of symptoms/concern: labs completed in October. A: Patient states she was looking at her xray results in [facility] and she saw a low potassium, it was 2.3 on 10/14/24. States she hasn't been feeling well and wonders why the doctor did not discuss her low potassium level, last seen in the office on 02/23/25 with her concerns. R: Checked labs in [place] and reviewed Epic. Discussed she was in [...] Protocols used: Information Only Call - No Notoeg-JAMHE-QT Normal [facility] No Panel Informationon 03-03 Radiology Study observation (narrative) [facility] XR Shoulder - left 2 Viewson 03-03-2025 No fracture or dislocation of the left shoulder is identified. Mild degenerative changes of the left acromioclavicular and glenohumeral joints. Report Dictated on Electronically Signed By: Rambo Samano MD Electronically Signed Date/Time: 03/03/2025 12:48 PM EDT [facility] Patient Name: SULLY PERDOMO : [...] at the left acromioclavicular and glenohumeral joints. [facility] Rambo Samano MD - 03/03/2025 Patient Name: [...] Electronically Signed Date/Time: 03/03/2025 12:48 PM EDT [facility] XR Shoulder - left 2 ViewsOr dered By: Rambo Samano on 03-03-2025 [facility] [employer] ANCAon 02-15-2025 Atypical pANCA <1:20 Normal Neg:<1:20 [facility] Comment on above: Result Comment: The atypical pANCA pattern has been observed in a significant percentage of patients with ulcerative colitis, primary sclerosing cholangitis and autoimmune hepatitis. Performed By: #### M 100.678 #### [facility] [address] [place], [place], [id number] Cytoplasmic Ab <1:20 Normal Neg:<1:20 [facility] Comment on above: Performed By: #### M 100.678 #### [facility] [address] [place], [address] Perinuclear Ab. <1:20 Normal Neg:<1:20 [facility] Comment on above: Result Comment: The presence of positive fluorescence exhibiting P-ANCA or C-ANCA patterns alone is not specific for the diagnosis of Ani's Granulomatosis (WG) or microscopic polyangiitis. Decisions about treatment should not be based solely on ANCA IFA results. The International ANCA Group Consensus recommends follow up testing of positive sera with both NJ- 3 and MPO-ANCA enzyme immunoassays. As many as 5% serum samples are positive only by EIA. Ref. AM J Clin Pathol 1999;111:507-513. Performed By: #### M 100.678 #### [facility] [address] [place], [place], [id number] Aspergillus Antibodieson Asp. flavus Negative Normal Neg:<1:1 [facility] Comment on above: Performed By: #### M 100.678 #### [facility] [address] [place], [place], [address] Asp. fumigatus Negative Normal Neg:<1:1 [facility] Comment on above: Performed By: #### M 100.678 #### [facility] [address] [place], [address] Asp. niger Negative Normal Neg:<1:1 [facility] Comment on above: Performed By: #### M 100.678 #### [facility] [address] [place], [address] Immunoglobulin Edwin 5 IMMUNOGLOB E QN 57 IU/mL Normal 6-495 [facility] Comment on above: Result Comment: Perf ormed at: - [facility] [address] [id number] Sizing Machine [employer] Drier Operator: Tim Cedeno PhD, Phone: [phone] Performed at: - [facility] [id number] S[employer] Machine And Drier Operator: Rik Lynn MD, Phone: [phone] Performed By: #### L 3200.1600, L3500.3600, L5500.0300, L3300.1200, L100.0100 #### [facility] [address] [place], [address] Allergen, Mini-Raston 2024 A. ALTERNATA <0.10 Normal Class 0 [facility] Comment on above: Performed By: #### L 3200.1600, L3500.3600, L5500.0300, L3300.1200, L100.0100 #### [facility] [address] [place], [address] BERMUDA GRASS <0.10 Normal Class 0 [facility] Comment on above: Performed By: #### L 3200.1600, L3500.3600, L5500.0300, L3300.1200, L100.0100 #### [facility] [address] [place], [address] [place], [place] <0.10 Normal Class 0 [facility] Comment on above: Performed By: #### L 3200.1600, L3500.3600, L5500.0300, L3300.1200, L100.0100 #### [facility] [address] [place], [address] CAT HAIR/DANDER <0.10 Normal Class 0 [facility] Comment on above: Performed By: #### L 3200.1600, L3500.3600, L5500.0300, L3300.1200, L100.0100 #### [facility] [address] [place], [address] COMMENT Comment Normal . [facility] Comment on above: Result Comment: Miriam lopez [...] L 3200.1600, L3500.3600, L5500.0300, L3300.1200, L100.0100 #### [facility] [address] [place], [address] D FARINAE MITE <0.10 Normal Class 0 [facility] Comment on above: Performed By: #### L 3200.1600, L3500.3600, L5500.0300, L3300.1200, L100.0100 #### [facility] [address] [place], [address] D PTERONYSSINUS <0.10 Normal Class 0 [facility] Comment on above: Performed By: #### L 3200.1600, L3500.3600, L5500.0300, L3300.1200, L100.0100 #### [facility] [address] [place], [address] DOG EPITHELIA <0.10 Normal Class 0 [facility] Comment on above: Performed By: #### L 3200.1600, L3500.3600, L5500.0300, L3300.1200, L100.0100 #### [facility] [address] [place], [address] ELM,AMER WHITE <0.10 Normal Class 0 [facility] Comment on above: Performed By: #### L 3200.1600, L3500.3600, L5500.0300, L3300.1200, L100.0100 #### [facility] [address] [place], [address] Mouse Urine <0.10 Normal Class 0 [facility] Comment on above: Result Comment: Perf ormed at: [facility] [id number] S[employer] Machine [employer] Drier Operator: Rik Lynn MD, Phone: [phone] Performed By: #### L 3200.1600, L3500.3600, L5500.0300, L3300.1200, L100.0100 #### [facility] [address] [place], [address] OAK, WHITE <0.10 Normal Class 0 [facility] Comment on above: Performed By: #### L 3200.1600, L3500.3600, L5500.0300, L3300.1200, L100.0100 #### [facility] [address] [place], [address] PLANTAIN,ENGLSH <0.10 Normal Class 0 [facility] Comment on above: Performed By: #### L 3200.1600, L3500.3600, L5500.0300, L3300.1200, L100.0100 #### [facility] [address] [place], [address] RAGWEED SH/COM <0.10 Normal Class 0 [facility] Comment on above: Performed By: #### L 3200.1600, L3500.3600, L5500.0300, L3300.1200, L100.0100 #### [facility] [place], [address] Pal 02-13-2025 [facility] Telephone ([facility]) SULLY PERDOMO ([id number]) 1955 F Date Time Provider Department 02/13/25 GOPI BESS [facility] During your visit today, we recorded [...] Encounter Status:Closed by STEPHAN FOWLER on 02/13/25 [facility] CNPN Telephone (AKNEIL) SULLY PERDOMO ([id number]) 1955 F Date Time Provider Department 02/13/25 GOPI BESS During your visit today, we recorded the following information about you: Rose Mary Aquino, RN 02/13/2025 12:21 PM Signed Patient contacted scheduling office needing to reschedule procedure from 02/17/2025 to 03/16/2025. Message was forwarded to Gil CASTELLON. I contacted patient to notify her that procedure has been rescheduled. Pre-procedure instructions were reviewed and reinforced. Patient verbalizes understanding. Patient provided with arrival time of 0900 day of procedure on 03/16/2025. Patient also provided [phone] contact number should any questions arise. Allergies [...] Status:Closed by ROSE MARY AQUINO on 02/13/25 [facility] Absolute lymphocyte countOrd ered By: Ana Gilman on 02-10-2025 Lymphocytes Auto (Unsp spec) [#/Vol] 2.43 10*3/uL 0.83-4.51 [facility] Absolute neutrophil countOrd ered By: Ana Gilman on 02-10-2025 Neutrophils (Bld) [#/Vol] 4.2 10*3/uL 2.0-7.7 [facility] Automated lymphocyte count a s percentage of total leukocytesOrdered By: Ana Gilman on 02-10-2025 Lymphocytes/100 WBC Auto (Unsp spec) 32.7 % 19-41 [facility] Basophil percentageOrdered B y: Ana Gilman on 02-10-2025 Basophils/100 WBC (Bld) 1.2 % High 0-1 [facility] CBC W/Diff, Automatedon Absolute Lymph 2.43 X10 3/uL Normal 0.83-4.51 [facility] Comment on above: Performed By: #### L 3200.1600, L3500.3600, L5500.0300, L3300.1200, L100.0100 #### [facility] [address] [place], [address] Absolute Neut 4.2 X10 3/uL Normal 2.0-7.7 [facility] Comment on above: Performed By: #### L 3200.1600, L3500.3600, L5500.0300, L3300.1200, L100.0100 #### [facility] [address] [place], [address] Basophils/100 WBC (Bld) 1.2 % High 0-1 [facility] Comment on above: Performed By: #### L 3200.1600, L3500.3600, L5500.0300, L3300.1200, L100.0100 #### [facility] [address] [place], [address] Eosinophils/100 WBC (Bld) 1.5 % Normal 0-5 [facility] Comment on above: Performed By: #### L 3200.1600, L3500.3600, L5500.0300, L3300.1200, L100.0100 #### [facility] [address] [place], [address] Erythrocyte distribution width (RBC) [Ratio] 13.1 % Normal 11.6-14.6 [facility] Comment on above: Performed By: #### L 3200.1600, L3500.3600, L5500.0300, L3300.1200, L100.0100 #### [facility] [address] [place], [address] Hematocrit (Bld) [Volume fraction] 42.5 % Normal 37-47 [facility] Comment on above: Performed By: #### L 3200.1600, L3500.3600, L5500.0300, L3300.1200, L100.0100 #### [facility] [address] [place], [address] Hemoglobin (Bld) [Mass/Vol] 14.4 g/dL Normal 12.0-15. 0 [facility] Comment on above: Performed By: #### L 3200.1600, L3500.3600, L5500.0300, L3300.1200, L100.0100 #### [facility] [address] [place], [address] IG% 0.300 Normal 0.0-0.9 [facility] Comment on above: Result Comment: IG% - Immature Granulocytes (promyelocytes, myelocytes and metamyelocytes) > 1% indicates that a LEFT SHIFT is Present. Performed By: #### L 3200.1600, L3500.3600, L5500.0300, L3300.1200, L100.0100 #### [facility] [address] [place], [address] Lymphocytes/100 WBC (Bld) 32.7 % Normal 19-41 [facility] Comment on above: Performed By: #### L 3200.1600, L3500.3600, L5500.0300, L3300.1200, L100.0100 #### [facility] [address] [place], [address] MCH (RBC) [Entitic mass] 32.3 pg High 27.0-32.0 [facility] Comment on above: Performed By: #### L 3200.1600, L3500.3600, L5500.0300, L3300.1200, L100.0100 #### [facility] [address] [place], [address] MCHC (RBC) [Mass/Vol] 33.9 g/dL Normal 32-36 [facility] Comment on above: Performed By: #### L 3200.1600, L3500.3600, L5500.0300, L3300.1200, L100.0100 #### [facility] [address] [place], [address] MCV (RBC) [Entitic vol] 95.3 fL Normal 81-99 [facility] Comment on above: Performed By: #### L 3200.1600, L3500.3600, L5500.0300, L3300.1200, L100.0100 #### [facility] [address] [place], [address] Monocytes/100 WBC (Bld) 8.1 % Normal 0-10 [facility] Comment on above: Performed By: #### L 3200.1600, L3500.3600, L5500.0300, L3300.1200, L100.0100 #### [facility] [address] [place], [address] Neutrophils/100 WBC (Bld) 56.2 % Normal 47-70 [facility] Comment on above: Performed By: #### L 3200.1600, L3500.3600, L5500.0300, L3300.1200, L100.0100 #### [facility] [address] [place], [address] Nucleated RBC (Bld) [#/Vol] 0 10*3/uL Normal 0-5 [facility] Comment on above: Performed By: #### L 3200.1600, L3500.3600, L5500.0300, L3300.1200, L100.0100 #### [facility] [address] [place], [address] Platelet mean volume (Bld) [Entitic vol] 8.4 fL Normal 6.2-12.0 [facility] Comment on above: Performed By: #### L 3200.1600, L3500.3600, L5500.0300, L3300.1200, L100.0100 #### [facility] [address] [place], [address] Platelets (Bld) [#/Vol] 349 10*3/uL Normal 150-450 [facility] Comment on above: Performed By: #### L 3200.1600, L3500.3600, L5500.0300, L3300.1200, L100.0100 #### [facility] [address] [place], [address] RBC (Bld) [#/Vol] 4.46 10*6/uL Normal 4.2-5.4 [facility] Comment on above: Performed By: #### L 3200.1600, L3500.3600, L5500.0300, L3300.1200, L100.0100 #### [facility] [address] [place], [address] RDW SD 46.1 fl High 35.1-43.9 [facility] Comment on above: Performed By: #### L 3200.1600, L3500.3600, L5500.0300, L3300.1200, L100.0100 #### [facility] [address] [place], [address] WBC (Bld) [#/Vol] 7.4 10*3/uL Normal 4.4-11.0 [facility] Comment on above: Performed By: #### L 3200.1600, L3500.3600, L5500.0300, L3300.1200, L100.0100 #### [facility] [address] [place], [address] Eosinophil percentageOrdered By: Ana Gilman on 02-10-2025 Eosinophils/100 WBC (Bld) 1.5 % 0-5 [facility] Erythrocyte distribution wid th ratioOrdered By: Ana Gilman on 02-10-2025 Erythrocyte distribution width (RBC) [Ratio] 13.1 % 11.6-14.6 [facility] Erythrocyte distribution wid th standard deviationOrdered By: Ana Gilman on 02-10-2025 Erythrocyte distribution width (RBC) [Ratio] 46.1 fl High 35.1-43.9 [facility] Hematocrit Auto (Bld) [Volum e fraction]Ordered By: Ana Gilman on 02-10-2025 Hematocrit (Bld) [Volume fraction] 42.5 % 37-47 [facility] Hemoglobin measurementOrdere d By: Ana Gilman on 02-10-2025 Hemoglobin (Bld) [Mass/Vol] 14.4 g/dL 12.0-15. 0 [facility] IgEOrdered By: Ana tony on 02-10-2025 IgE 57 IU/mL 6-495 [facility] Comment on above: Performed at: [address] [id number] Director: Tim Cedeno PhD, Phone: [phone] at: [facility] [address] [id number] Director: Rik Lynn MD, Phone: [phone] Immature granulocytes/100 WB C Auto (Bld)Ordered By: Ana Gilman on 02-10-2025 Immature granulocytes/100 WBC (Bld) 0.300 % 0.0-0.9 [facility] Comment on above: IG% - Immature Granu locytes (promyelocytes, myelocytes and metamyelocytes) > 1% indicates that a LEFT SHIFT is Present. Influenza virus A and B and SARS-CoV-2 (COVID-19) and Respiratory syncytial virus RNAOrdered By: Ana Gilman on 02-10-2025 SARS-CoV-2 (COVID-19) RNA MARCO ANTONIO+probe Ql (Unsp spec) [facility] - Miscellaneous t estsOrdered By: Ana Gilman on 02-10-2025 Service comment (Unsp spec) [Interp] Comment . [facility] Comment on above: Levels of Specific I [...] INFLUENZA B Negative RSV PCR Negative Normal [facility] Comment on above: Performed By: #### M 100.678 #### [facility] [address] [place] [address]. [place], [place], [id number] MCV (mean corpuscular volume ) determinationOrdered By: Ana Gilman on 02-10-2025 MCV (RBC) [Entitic vol] 95.3 fL 81-99 [facility] Mean corpuscular hemoglobin (MCH) determinationOrdered By: Ana Gilman on 02-10-2025 MCH (RBC) [Entitic mass] 32.3 pg High 27.0-32.0 [facility] Mean corpuscular hemoglobin concentration (MCHC) determinationOrdered By: Ana Gilman on 02-10-2025 MCHC (RBC) [Mass/Vol] 33.9 g/dL 32-36 [facility] Mean platelet volume determi nationOrdered By: Ana Gilman on 02-10-2025 Platelet mean volume (Bld) [Entitic vol] 8.4 fL 6.2-12.0 [facility] Monocyte percentageOrdered B y: Ana Gilman on 02-10-2025 Monocytes/100 WBC (Bld) 8.1 % 0-10 [facility] Neutrophil percentageOrdered By: Ana Gilman on 02-10-2025 Neutrophils/100 WBC (Bld) 56.2 % 47-70 [facility] Nucleated red blood cell per centageOrdered By: Ana Gilman on 02-10-2025 Nucleated RBC/100 WBC (Bld) [Ratio] 0 % 0-5 [facility] Platelet countOrdered By: Henna Gilmna on 02-10-2025 Platelets (Bld) [#/Vol] 349 10*3/uL 150-450 [facility] RBC Auto (Bld) [#/Vol]Ordere d By: Ana Gilman on 02-10-2025 RBC (Bld) [#/Vol] 4.46 10*6/uL 4.2-5.4 [facility] Serum Aspergillus flavus ant ibody detection by immunodiffusionOrdered By: Ana Gilman on 02-10-2025 A. flavus Ab Immune diff Ql (S) Negative Neg:<1:1 [facility] Serum Aspergillus fumigatus antibody detection by immunodiffusionOrdered By: Ana Gilman on 02-10-2025 A. fumigatus Ab Immune diff Ql (S) Negative Neg:<1:1 [facility] Serum Aspergillus niger anti body detection by immunodiffusionOrdered By: Ana Gilman on 02-10-2025 A. niger Ab Immune diff Ql (S) Negative Neg:<1:1 [facility] Serum [place] grass IgE anti body assay (units/volume)Ordered By: Ana Gilman on 02-10-2025 B[place] grass IgE Qn (S) <0.10 kU/L Class 0 [facility] Serum house dust mi te IgE antibody assay (units/volume)Ordered By: Ana Gilman on 02-10-2025 house dust mite IgE Qn (S) <0.10 kU/L Class 0 [facility] Serum [place] blue grass Ig E antibody assay (units/volume)Ordered By: Ana Gilman on 02-10-2025 [place] blue grass IgE Qn (S) <0.10 kU/L Class 0 [facility] Serum cat dander IgE antibod y assay (units/volume)Ordered By: Ana Gilman on 02-10-2025 Cat dander IgE Qn (S) <0.10 kU/L Class 0 [facility] Serum classic neutrophil cyt oplasmic antibody assay (units/volume)Ordered By: Ana Gilman on 02-10-2025 Neutrophil cytoplasmic Ab.classic Qn (S) <1:20 titer Neg:<1:20 [facility] Serum dog epithelium IgE ant ibody assay (units/volume)Ordered By: Ana Gilman on 02-10-2025 Dog epithelium IgE Qn (S) <0.10 kU/L Class 0 [facility] Serum perinuclear neutrophil cytoplasmic antibody titer by immunofluorescenceOrdered By: Ana Gilman on 02-10-2025 Neutrophil cytoplasmic Ab.perinuclear IF (S) [Titer] <1:20 titer Neg:<1:20 [facility] Comment on above: The presence of posi tive fluorescence exhibiting P-ANCA orC-ANCA patterns alone is not specific for the diagnosis ofWegener's Granulomatosis (WG) or microscopic polyangiitis.Decisions about treatment should not be based solely onANCA IFA results. The International ANCA Group Consensusrecommends follow up testing of positive sera with both NJ-3 and MPO-ANCA enzyme immunoassays. As many as 5% serumsamples are positive only by EIA. Ref. AM J Clin Bdxhuf6095;111:507-513. Serum white elm IgE antibody assay (units/volume)Ordered By: Ana Gilman on 02-10-2025 [place] IgE Qn (S) <0.10 kU/L Class 0 [facility] Serum white oak IgE antibody assay (units/volume)Ordered By: Ana Gilman on 02-10-2025 [place] IgE Qn (S) <0.10 kU/L Class 0 [facility] White blood cell (WBC) count Ordered By: Ana Gilman on 02-10-2025 WBC (Bld) [#/Vol] 7.4 10*3/uL 4.4-11.0 [facility] 02-03-2025 [facility] Telephone (AKNEIL) SULLY PERDOMO ([id number]) 1955 F Date Time Provider Department 02/03/25 [...] Encounter Status:Closed by JENNIFER LEBRON on 02/03/25 [facility] CNPNon 01-24-2025 CNPN Telephone (NSEN) SULLY PERDOMO ([id number]) 1955 F Date Time Provider Department 01/24/25 GOPI BESS [facility] During your visit today, we recorded the following information about you: Stephan Fowler RN 01/24/2025 4:30 PM Signed Spoke with patient and rescheduled her for diagnostic angiogram with Dr. Bess on 02/17/25. Provided instructions and will send through [employer]. 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 Bess 01/19/25 at 1100/1000 arrival. Patient had not reviewed her MyChart letter yet, reminded her it will be in an kurtis not an email. Reviewed important NPO, medication, [...] Encounter Status:Closed by JAMA WHITEHEAD on 01/10/25 [facility] Pal 01-03-2025 [facility] Telephone ([facility]) SULLY PERDOMO ([id number]) 1955 F Date Time Provider Department 01/03/25 GOPI BESS [facility] During your visit today, we recorded the following information about you: Stephan Fowler, ELIZABETH 01/03/2025 2:22 PM Signed Left VM for [...] Bess. Reviewed instructions and will send through [employer]. Provided call back number to call with [...] Status:Closed by STEPHAN FOWLER on 01/03/25 Normal [facility] CNOVon 01-02-2025 CNOV Office Visit (NSEAP) SULLY PERDOMO ([id number]) 1955 F Date Time Provider Department 01/02/25 11:20 AM GOPI BESS [facility]SE[facility]J During your visit today, we recorded the following information about you: Pulse Blood pressure Weight Height 86/minute 144/73 52.2 kg 1.651 m Gopi Bess MD 01/02/2025 11:50 AM Signed You will have a diagnostic catheter angiogram scheduled at [facility] within the next few weeks. This test [...] Endovascular Surgical Neuroradiology New Visit Sully Perdomo [facility]#: [id number] Date of Service: 01/02/2025 Primary Care Provider: [...] reports a lung nodule found by her outside rigger, for which she is scheduled to have [...] by alexa (more content not included)... Normal [facility] ALLIED HEALTHon 12-30-2024 ALLIED HEALTH HNO ID: [id number] Author: JACLYN MAURO Tech Service: Radiology Author Type: Nuisance Wildlife Control Operator Type: Allied Health Filed: 12/30/2024 14:44 Note [...] PATIENT PRESENTS WITH AN IMPLANTABLE OR ATTACHED SNUFF BLENDER: No ALLERGIES: Reviewed and unchanged CONTRAST ALLERGY: [...] December 30, 2024 TIME: 2:37 PM Normal [facility] Basic metabolic 2000 panelon 12-30-2024 Anion gap [Moles/Vol] 11 mmol/L Normal 8-15 [facility] Comment on above: Order Comment: Speci lucy Type: BLOOD SPECIMENOrdering Facility: [facility] Address: [address] [place] [address] Performed By: #### 2 4320-10, ####[facility] LABORATORYCLIA [id number] [place] [address] [place] Calcium [Mass/Vol] 9.3 mg/dL Normal 8.5-10.2 [facility] Comment on above: Order Comment: Joeyi men Type: BLOOD SPECIMENOrdering Facility: [facility] Address: [address] [place] [address] Performed By: #### 2 4320-10, ####[facility] LABORATORYCLIA [id number] [place] [address] [place] Chloride [Moles/Vol] 107 mmol/L Normal 98-107 [facility] Comment on above: Order Comment: Speci men Type: BLOOD SPECIMENOrdering Facility: [facility] Address: [address] [place] [address] Performed By: #### 2 4320-10, ####[facility] LABORATORYCLIA [id number] [place] [address] [place] CO2 [Moles/Vol] 26 mmol/L Normal 22-30 [facility] Comment on above: Order Comment: Speci men Type: BLOOD SPECIMENOrdering Facility: [facility] Address: [address] [place] [address] Performed By: #### 2 432-, ####[facility]ITAL[facility] [id number] [place] [id number] [place] [facility] Creatinine [Mass/Vol] 0.59 mg/dL Normal 0.58-0.96 [facility] Comment on above: Order Comment: Speci men Type: BLOOD SPECIMENOrdering Facility: [facility] Address: [address] [place] [address] Performed By: #### 2 43209-08, ####[facility] LABORATORYCLIA [id number] [address] Creatinine and Glomerular filtration rate.predicted panel (S/P/Bld) 99 mL/min/1.73m??? Normal >=60 [facility] Comment on above: Order Comment: Speci men Type: BLOOD SPECIMENOrdering Facility: [facility] Address: [address] [place] [address] Result Comment: Samantha mated Glomerular Filtration Rate [...] reflect actual GFR. Performed By: #### 2 432-, ####[facility] LABORATORYIA [id number] [place] [id number] [place] Glucose [Mass/Vol] 130 mg/dL High 74-99 [facility] Comment on above: Order Comment: Speci men Type: BLOOD SPECIMENOrdering Facility: [facility] Address: [address] [place] [address] Result Comment: The [place] Diabetes Association (ADA) provides guidance for cutoff [...] Standards of Medical Care in Diabetes 2016, [place] [employer]. Diabetes Care. 2016.39(Suppl 1). Performed By: #### 2 4320-10, ####[facility] LABORATORYCLIA [id number] [place] [address] [place] Potassium [Moles/Vol] 3.7 mmol/L Normal 3.7-5.1 [facility] Comment on above: Order Comment: Speci lucy Type: BLOOD SPECIMENOrdering Facility: [facility] Address: [address] [place] [address] Performed By: #### 2 4320-10, ####[facility] [id number] [place] [address] [place] [facility] Sodium [Moles/Vol] 144 mmol/L Normal 136-144 [facility] Comment on above: Order Comment: Rubio ayala Type: BLOOD SPECIMENOrdering Facility: [facility] Address: [address] [place] [address] Performed By: #### 2 4320-10, ####[facility]ORATORYCLIA [id number] [address] [place] Urea nitrogen [Mass/Vol] 8 mg/dL Normal 7-21 [facility] Comment on above: Order Comment: Speci men Type: BLOOD SPECIMENOrdering Facility: [facility] Address: [address] [place] [address] Performed By: #### 2 4320-10, ####[facility] LABORATORYCLIA [id number] [place] [address] [place] CBC W Auto Differential pane l (Bld)on 12-30-2024 Basophils (Bld) [#/Vol] 0.06 10*3/uL Normal <0.11 [facility] Comment on above: Order Comment: Speci men Type: BLOOD SPECIMENOrdering Facility: [facility] Address: [address] [place] [address] Performed By: #### 5 7021-8 ####[facility]ORYCLIA [id number] [address] STATES [facility] Basophils/100 WBC (Bld) 0.8 % Normal [facility] Comment on above: Order Comment: Speci men Type: BLOOD SPECIMENOrdering Facility: [facility] Address: [address] [place] [address] Performed By: #### 5 7021-8 ####[facility]ORYCLIA [id number] [address] Differential cell count method Nom (Bld) Auto Normal [facility] Comment on above: Order Comment: Speci men Type: BLOOD SPECIMENOrdering Facility: [facility] Address: [address] [place] [address] Performed By: #### 5 7021-8 ####[facility]ATORYCLIA [id number] [address] OF [facility] Eosinophils (Bld) [#/Vol] 0.09 10*3/uL Normal <0.46 [facility] Comment on above: Order Comment: Speci men Type: BLOOD SPECIMENOrdering Facility: [facility] Address: [address] [place] [address] Performed By: #### 5 7021-8 ####[facility]ORY[facility]IA [id number] [address] Eosinophils/100 WBC (Bld) 1.2 % Normal [facility] Comment on above: Order Comment: Speci men Type: BLOOD SPECIMENOrdering Facility: [facility] Address: [address] [place] [address] Performed By: #### 5 7021-8 ####[facility]ORYCLIA [id number] [address] Erythrocyte distribution width (RBC) [Ratio] 13.3 % Normal 11.5-15.0 [facility] Comment on above: Order Comment: Speci men Type: BLOOD SPECIMENOrdering Facility: [facility] Address: [address] [place] [address] Performed By: #### 5 7021-8 ####[facility]ORATORYCLIA [id number] [address] [place] Hematocrit (Bld) [Volume fraction] 42.6 % Normal 36.0-46.0 [facility] Comment on above: Order Comment: Speci men Type: BLOOD SPECIMENOrdering Facility: [facility] Address: [address] [place] [address] Performed By: #### 5 7021-8 ####[facility]ATORYCLIA [id number] [address] [place] Hemoglobin (Bld) [Mass/Vol] 13.8 g/dL Normal 11.5-15. 5 [facility] Comment on above: Order Comment: Speci men Type: BLOOD SPECIMENOrdering Facility: [facility] Address: [address] [place] [address] Performed By: #### 5 7021-8 ####[facility]ATORYCLIA [id number] [address] [place] Immature granulocytes (Bld) [#/Vol] 0.03 10*3/uL Normal <0.10 [facility] Comment on above: Order Comment: Speci men Type: BLOOD SPECIMENOrdering Facility: [facility] Address: [address] [place] [address] Performed By: #### 5 7021-8 ####[facility]ORATORYCLIA [id number] [address] Immature granulocytes/100 WBC (Bld) 0.4 % Normal [facility] Comment on above: Order Comment: Speci men Type: BLOOD SPECIMENOrdering Facility: [facility] Address: [address] [place] [address] Performed By: #### 5 7021-8 ####[facility]ATORYCLIA [id number] [address] [place] Lymphocytes (Bld) [#/Vol] 1.86 10*3/uL Normal 1.00-4.0 0 [facility] Comment on above: Order Comment: Speci men Type: BLOOD SPECIMENOrdering Facility: [facility] Address: [address] [place] [address] Performed By: #### 5 7021-8 ####[facility]ATORYCLIA [id number] [address] Lymphocytes/100 WBC (Bld) 24.2 % Normal [facility] Comment on above: Order Comment: Speci men Type: BLOOD SPECIMENOrdering Facility: [facility] Address: [address] [place] [address] Performed By: #### 5 7021-8 ####[facility]ORATORYCLIA [id number] [address] [place] MCH (RBC) [Entitic mass] 31.1 pg Normal 26.0-34.0 [facility] Comment on above: Order Comment: Speci men Type: BLOOD SPECIMENOrdering Facility: [facility] Address: [address] [place] [address] Performed By: #### 5 7021-8 ####[facility]ATORYCLIA [id number] [address] [place] MCHC (RBC) [Mass/Vol] 32.4 g/dL Normal 30.5-36.0 [facility] Comment on above: Order Comment: Speci men Type: BLOOD SPECIMENOrdering Facility: [facility] Address: [address] [place] [address] Performed By: #### 5 7021-8 ####[facility]ORATORYCLIA [id number] [address] MCV (RBC) [Entitic vol] 95.9 fL Normal 80.0-100.0 [facility] Comment on above: Order Comment: Speci men Type: BLOOD SPECIMENOrdering Facility: [facility] Address: [address] [place] [address] Performed By: #### 5 7021-8 ####[facility]ORYCLIA [id number] [address] [place] Monocytes (Bld) [#/Vol] 0.57 10*3/uL Normal <0.87 [facility] Comment on above: Order Comment: Speci men Type: BLOOD SPECIMENOrdering Facility: [facility] Address: [address] [place] [address] Performed By: #### 5 7021-8 ####[facility] LABORATORYCLIA [id number] [address] Monocytes/100 WBC (Bld) 7.4 % Normal [facility] Comment on above: Order Comment: Speci men Type: BLOOD SPECIMENOrdering Facility: [facility] Address: [address] [place] [address] Performed By: #### 5 7021-8 ####[facility]ORYCLIA [id number] [address] [place] Neutrophils (Bld) [#/Vol] 5.08 10*3/uL Normal 1.45-7.5 0 [facility] Comment on above: Order Comment: Speci men Type: BLOOD SPECIMENOrdering Facility: [facility] Address: [address] [place] [address] Performed By: #### 5 7021-8 ####[facility]ORYCLIA [id number] [address] [place] Neutrophils/100 WBC (Bld) 66.0 % Normal [facility] Comment on above: Order Comment: Speci men Type: BLOOD SPECIMENOrdering Facility: [facility] Address: [address] [place] [address] Performed By: #### 5 7021-8 ####[facility]ORYCLIA [id number] [address] [place] Nucleated RBC (Bld) [#/Vol] 10*3/uL Normal <0.01 [facility] Comment on above: Order Comment: Speci men Type: BLOOD SPECIMENOrdering Facility: [facility] Address: [address] [place] [address] Performed By: #### 5 7021-8 ####[facility]ATORYCLIA [id number] [address] [place] Nucleated RBC/100 WBC (Bld) [Ratio] 0.0 /100 WBC Normal [facility] Comment on above: Order Comment: Speci men Type: BLOOD SPECIMENOrdering Facility: [facility] Address: [address] [place] [address] Performed By: #### 5 7021-8 ####[facility]ORATORYCLIA [id number] [place] [address] [place] Platelet mean volume (Bld) [Entitic vol] 8.3 fL Low 9.0-12.7 [facility] Comment on above: Order Comment: Speci men Type: BLOOD SPECIMENOrdering Facility: [facility] Address: [address] [place] [address] Performed By: #### 5 7021-8 ####[facility]ATORYCLIA [id number] [place] [address] [place] Platelets (Bld) [#/Vol] 333 10*3/uL Normal 150-400 [facility] Comment on above: Order Comment: Speci men Type: BLOOD SPECIMENOrdering Facility: [facility] Address: [address] [place] [address] Performed By: #### 5 7021-8 ####[facility]ORATORYCLIA [id number] [place] [address] [place] RBC (Bld) [#/Vol] 4.44 10*6/uL Normal 3.90-5.20 [facility] Comment on above: Order Comment: Speci men Type: BLOOD SPECIMENOrdering Facility: [facility] Address: [address] [place] [address] Performed By: #### 5 7021-8 ####[facility]ORATORYCLIA [id number] [place] [address] [place] WBC (Bld) [#/Vol] 7.69 10*3/uL Normal 3.70-11.00 [facility] Comment on above: Order Comment: Speci men Type: BLOOD SPECIMENOrdering Facility: [facility] Address: [facility] [place][note 2] [place] [address] Performed By: #### 5 7021-8 ####[facility]ORATORYCLIA [id number] [place] [address] [facility] CNPNon 12-30-2024 [facility] SULLY PERDOMO ([id number]) 1955 F Date Time Provider Department 12/30/24 GOPI BESS [facility] During your visit today, we recorded the following information about you: Bonita Henriquez 12/30/2024 8:25 AM Addendum CV PHONE Name of caller : Sully Relationship to patient : Self If not self Will need patient permission to release results or disclose health information with called documented in fyi. Patient identified by Name and Date of . ( Sully Perdomo, 1955). Yes Number to return call [phone] Reason for Call: Symptoms Call: Symptoms: Left Eye Drooping more, Dizziness, Lightheaded, and left Blurry Vision different from needed glasses, tingling in eyelid Duration: 24-48 hours Progression: worse Pain level: 3 on a scale of 0-10. Type of pain (feels like): pressure Frequency: constant Location of pain: Left Eye [facility] Patient diagnosed with an aneurysm. Patient is calling to report active symptoms. She is scheduled to see Dr. Lee Thursday as new consult but is having active symptoms with worsening drooling in eye lid, lightheaded and dizzy while sitting but worsen when standing. Patient reports seeing bhavikgzags in front of left eye. Please [phone]. P.S Patient was asked if she contacted her PCP. She states PCP is not available. I CONFIRMED and updated patient's address in [employer]. Thank you calling [facility]. You will receive a return call within [...] message below, she will go to the [place] ED. Allergies As of Date: 12/30/2024 Noted [...] Status:Closed by DENITA VEGAS on 12/30/24 Normal [facility] CT BRAIN WO IVCONon 12-31-19 CT BRAIN WO IVCON * * *Final Report* * * DATE OF EXAM: Dec 30 2024 2:54PM [facility] 0504 - CT BRAIN WO IVCON [...] Arch: The aortic arch is out of [id number]-[id number]-golq. No dissection the cervical vertebral or carotid [...] are patent. The basilar artery is patent. practice specialist are patent. SCAs are patent. No significant stenosis. No aneurysm. The major dural sinuses and draining veins are patent. Software Design Manager (topogram) images: No additional findings. IMPRESSION: No acute intracranial findings. Motion degradation at the skull base on CTA. Bilateral proximal cervical ICA stenosis 10% on the right and 30% on the left. 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 Event Marketing Manager: ANETA Transcribe Date/Time: Dec 30 2024 3:03P Dictated by : MARTHA RODRIGUEZ MD This examination was interpreted and the report reviewed and electronically signed by: MARTHA RODRIGUEZ MD on Dec 30 2024 3:19PM EST [id number] Normal [facility] CTA HEAD W IVCONon CTA HEAD W IVCON * * *Final Report* * * DATE OF EXAM: Dec 30 2024 2:54PM [facility] 0022 - CTA HEAD W IVCON [...] Arch: The aortic arch is out of bgznk-dz-[id number]. No dissection the cervical vertebral or carotid [...] are patent. The basilar artery is patent. practice specialist are patent. SCAs are patent. No significant stenosis. No aneurysm. The major dural sinuses and draining veins are patent. Software Design Manager (topogram) images: No additional findings. IMPRESSION: No acute intracranial findings. Motion degradation at the skull base on CTA. Bilateral proximal cervical ICA stenosis 10% on the right and 30% on the left. 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 Event Marketing Manager: ANETA Transcribe Date/Time: Dec 30 2024 3:03P Dictated by : MARTHA RODRIGUEZ MD This examination was interpreted and the report reviewed and electronically signed by: MARTHA RODRIGUEZ MD on Dec 30 2024 3:19PM EST [id number] Normal [facility] CTA NECK W IVCONon CTA NECK W IVCON * * *Final Report* * * DATE OF EXAM: Dec 30 2024 2:54PM [facility] 0024 - CTA NECK W IVCON [...] Arch: The aortic arch is out of zjlgj-tb-yepv. No dissection the cervical vertebral or carotid [...] are patent. The basilar artery is patent. practice specialist are patent. SCAs are patent. No significant stenosis. No aneurysm. The major dural sinuses and draining veins are patent. Software Design Manager (topogram) images: No additional findings. IMPRESSION: No acute intracranial findings. Motion degradation at the skull base on CTA. Bilateral proximal cervical ICA stenosis 10% on the right and 30% on the left. 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 Event Marketing Manager: [facility] Transcribe Date/Time: Dec 30 2024 3:03P Dictated by : MARTHA RODRIGUEZ MD This examination was interpreted and the report reviewed and electronically signed by: MARTHA RODRIGUEZ MD on Dec 30 2024 3:19PM EST [id number] Normal [facility] ED NOTEon 12-30-2024 ED NOTE HNO ID: [id number] Author: TIMO FORRESTER, ELIZABETH Service: Emergency Medicine Author Type: Registered Nurse Type: ED Notes Filed: 12/30/2024 11:24 Note Text: CT called for at this time. 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 She presents to the emergency department after she developed left ptosis and lightheadedness. She contacted her mine motor operator who advised her to come here. She [...] stable condition. MORENA SANDOVAL 12/30/24 1136 Normal [facility] ED PROV NOTE HNO ID: [id number] Author: MORENA SANDOVAL MD Service: Emergency Medicine [...] endorses daily BP meds. Pt endorses pressure MATTHEW. The patient is a 69-year-old female presenting to the emergency department for evaluation of left-sided eyelid droop and a sensation that the room is spinning. She tells me that she has been having the spinning sensation for the last several months. She has also been dealing with recurrent sinus infections. The patient's mine motor operator ordered MRI of the brain to evaluate [...] 1998 Rx with oral steroids; followed by Personal Injury Paralegal PAST SURGICAL HISTORY Procedure Laterality Date APPENDECTOMY [...] wrinkle foreh (more content not included)... Normal [facility] EKGon 12-30-2024 Electrocardiogram Ventricular Rate : 8 1 BPM Atrial Rate : 81 BPM P-R Interval : 142 ms QRS Duration : 100 ms Q-T Interval : 394 ms QTC Calculation(Bazett) : 457 ms Calculated P Mayer : 64 degrees Calculated R Mayer : 37 degrees Calculated T Mayer : 69 degrees NORMAL SINUS RHYTHM INCOMPLETE RIGHT BUNDLE BRANCH BLOCK BORDERLINE ECG NO PREVIOUS ECGS AVAILABLE Confirmed by MD SANDOVAL CAROL ([id number]) on 12/30/2024 11:10:03 AM NAME : SULLY PERDOMO PID : [id number] : 1955 Gender : Female Race : ORD : Procedure Date : Dec 30 2024 10:19:27 Edit Date : Dec 30 2024 11:10:07 Diagnosis: NORMAL SINUS RHYTHM INCOMPLETE RIGHT BUNDLE BRANCH BLOCK BORDERLINE ECG NO PREVIOUS ECGS AVAILABLE Confirmed by MD SANDOVAL CAROL ([id number]) on 12/30/2024 11:10:03 AM Test Reason : Location : 4 : [facility] Overread By : MD SANDOVAL CAROL Edited By : MD SANDOVAL CAROL Referred By : , Acquired by : BO SOTO Normal [facility] Magnesium SerPl-mCncon 12-30 Magnesium [Mass/Vol] 1.9 mg/dL Normal 1.7-2.3 [facility] Comment on above: Order Comment: Speci men Type: BLOOD SPECIMENOrdering Facility: [facility] Address: [address] [place] [address] Performed By: #### 2 4321-2, 02285-1 ####[facility]ORATORYCLIA [id number] [place] [address] [place] Chest PA and Lateralon 12-19 Chest PA and Lateral [facility] Services [address] [place] [address] Chest PA and Lateral MR#: [id number] Acct: [id number] Name: SULLY PERDOMO STEPHAN Rep #: [id number] : 1955 F 69 From: Mirtha Knapp PCP: Dr. Jeremiah Martínez MD Status: REG CLI Study: Chest PA and Lateral Date of Exam: 12/19/24 Exam# [id number] Ordering Dr: Ana Gilman NP H[employer] HR GENERALIST-C PROCEDURE: CHEST PA AND LATERAL 12/19/2024 REASON [...] fractures. Subacute right rib fractures. Reading Location: [id number] CC: OLIVE Gilman; Dr. Jeremiah Martínez MD Event Marketing Manager: Signed Normal [facility] Pal 12-15-2024 [facility] Telephone (NECVS8) SULLY PERDOMO ([id number]) 1955 F Date Time Provider Department 12/15/24 NEUROLOGY PROVIDER NECVS8 During your visit today, we recorded the following information about you: Denita Vegas 12/15/2024 10:35 AM Signed Name of Caller AND Phone Number: Anjelica from Dr. Sergio Diaz MD - [place] [phone] - referral What diagnosis do you need seen for: aneurysm 3. Have you been recommended for surgery/procedure for this diagnosis: No 4. Have you had imaging for this diagnosis in the past year?: No Please call patient. Thank you for the information, your chart will be forwarded to our Intake team. A coordinator will reach out to you within the next 24 hours to go through our triage questionnaire with you. If you don't receive a call from them within the next 3 business days, please call [phone] to follow up. Soyjeni Baljit 12/16/2024 10:30 AM Signed ENDOVASCULAR INTAKE Patient name: Sully Perdomo When was triage completed? December 16 What diagnosis are you looking to be seen for within our center? (ex: aneurysm, angioma, arteriovenous malformation, brain bleed or brain hemorrhage, cavernous malformation, carotid stenosis, fistula, [place], Vein of Henry, IIH or pseudotumor, etc.) Aneurysm AND Dizziness (Patient went in for sinus issues, and doctor found the aneurysm) Is there a specific provider who is requesting you see our center? (referring provider) Dr. Sergio Diaz MD Has your referring provider recommended a specific provider in our department? No Is this a second opinion? Have you been recommended for surgery or procedure for this condition? Not a second opinion. Not yet recommended for surgery/procedure. If yes, have you scheduled this procedure at another facility? If yes, when is the procedure scheduled? Where have you had any imaging for this diagnosis in the past year? These include images such as ultrasounds, MRIs, CTs, or angiograms of the head, brain, neck, carotids, or spine. [facility] (Records in Care Everywhere) Have you had any surgeries or procedures for this condition? No, patient stated she had sinus surgery couple years ago though. If yes, where was it done and when? Who performed the surgery or procedure? [facility] Does any of the following pertain to you? Family history of brain aneurysm? No Polycystic kidney disease or other genetic kidney disease? Not applicable if chronic kidney disease. No Connective tissue disease such as fibromuscular dysplasia or Moy-Danlos Syndrome? No Do you prefer in-person or virtual appointment? Out of state residents must be in [place] at the time of their virtual visit. Patient prefers [place] area Specific day of the week or time of day? Any Time Do you prefer to be notified of your appointment by phone or MyChart message? Phone Call Thank you for speaking with me today. Your information will now be forwarded to our endovascular advance practice provider team to review and provide scheduling recommendations. Please allow 3 business days to hear back from us. If you do not, feel free to call back [phone] for an update. Baljit Montoya 12/29/2024 8:17 AM Addendum OSH imaging/records received from [facility] [place]: December 16, 2024 - Records available in Care Everywhere - Images OSH imaging/records received from [facility] [place]: December 16, 2024 - Records available in Care Everywhere - Images Allergies As of Date: 12/15/2024 Noted Allergy Reaction ESCITALOPRAM 12/16/2022 10 - [...] PA-C - Fully Assessed Reason for Visit: Referral Information [4760] Cmt: Please schedule patient - referral from Dr. Diaz office Future Appointment [256] Cmt: New Patient [place] Any Prescriptions as of 03/17/2025 - omeprazole (PRILOSEC) 20 mg capsule take [...] every 6 hours as needed. - cyanocobalamin ( (more content not included)... Normal [facility] CT MAXILLOFACIAL WO IV CONTR Tao [...] PM EDT Chronic congestion Medtronic protocol Normal [facility] Pulmonary Visit Reporton Pulmonary Visit Report [facility] [place] [address] [place] [address] OFFICE VISIT Date of Service: 11/08/24 MR#: [id number] Acct: [id number] Name: SULLY PERDOMO STEPHAN Rep #: [id number] : 1955 Provider: OLIVE Gilman Age/Sex: 69/F Location: [facility].PM[facility] Status: Signed Assessment and Plan Assessment and [...] She d (more content not included)... Normal [facility] XR Chest 2 Viewson 5 1. No acute cardiopulmonary process. 2. Pulmonary hyperinflation. Report Dictated on Electronically Signed By: Mac Laws MD Electronically Signed Date/Time: 11/04/2024 9:59 AM [facility] Patient Name: SULLY PERDOMO : 1955 [...] are degenerative changes of the thoracic spine. [facility] Mac Laws MD - 11/04/2024 Patient Name: [...] MD Electronically Signed Date/Time: 11/04/2024 9:59 AM [facility] Radiology Study observation (narrative) [facility] XR Chest 2 ViewsOrdered By: Mac Laws on 11-04-2024 [facility] Work Phone: PET/CT Tumor Base -Thigh Ini ton 10-18-2024 PET/CT Tumor Base -Thigh Init [facility] Imaging Services [address] [place] [address] PET/CT Tumor Base -Thigh Init MR#: [id number] Acct: [id number] Name: SULLY PERDOMO STEPHAN Rep #: [id number] : 1955 F 69 From: Jessica Ordaz MD PCP: Dr. Jeremiah Martínez MD Status: REG CLI Study: PET/CT Tumor Base -Thigh Init Date of Exam: Exam# [id number] Ordering Dr: Ana Gilman NP, NP-C ADDENDUM by Dr. Jessica Ordaz MD on 10/27/24 at 0758 The findings of pneumothorax and rib fractures were discussed with the nurse at Ana Gilman's office at 0754 EST on 10/27/2024. Reading Location: [id number] 10/27/24 0758 Date cc: OLIVE Gilman; Dr. [...] A TRACE RIGHT APICAL PNEUMOTHORAX. Reading Location: [id number] CC: OLIVE Gilman; Dr. Jeremiah Martínez MD Event Marketing Manager: Signed Normal [facility] BASIC METABOLIC PANELon Anion gap [Moles/Vol] 8 mmol/L Normal 3-13 [facility] Comment on above: Performed By: #### L AB103, LAB15 ####Heart Doctor: ANA HIGGINS ([id number])[facility] COHEN RITTMAN (SWRLAB)[address] [place] [address] [place] Calcium [Mass/Vol] 9.5 mg/dL Normal 8.8-10.0 [facility] Comment on above: Performed By: #### L AB103, LAB15 ####Heart Doctor: ANA HIGGINS ([id number])[facility] CO[facility] R[place] (SWRLAB)[address] [place] [address] [place] Chloride [Moles/Vol] 102 mmol/L Normal 98-[address] [facility] Comment on above: Performed By: #### L AB103, LAB15 ####Heart Doctor: ANA HIGGINS ([id number])[facility] [place] (SWRLAB)[address] [place] [address] [place] CO2 [Moles/Vol] 27 mmol/L Normal 23-31 [facility] Comment on above: Performed By: #### L AB103, LAB15 ####Heart Doctor: ANA HIGGINS ([id number])[facility]US[facility] CO[place] R[place] (SWRLAB)[address] [place] [address] [place] Creatinine [Mass/Vol] 0.72 mg/dL Normal 0.57-1.11 [facility] Comment on above: Performed By: #### L AB103, LAB15 ####Heart Doctor: ANA HIGGINS ([id number])[facility] CO[place] (SWRLAB)[address] [place] [address] GLOMERULAR FILTRATION RATE ML/MIN/1.73 SQ M.PREDICTED >90.0 Normal >60.0 [facility] Comment on above: Result Comment: Calc ulation based on the Chronic Kidney Disease Epidemiology Collaboration (CKD-EPI) equation refit without adjustment for race Performed By: #### L AB103, LAB15 ####Heart Doctor: ANA HIGGINS ([id number])[facility] [place] (SWRLAB)[address] [place] [address] [place] Glucose [Mass/Vol] 98 mg/dL Normal 82-115 [facility] Comment on above: Performed By: #### L AB103, LAB15 ####Heart Doctor: ANA HIGGINS ([id number])[facility] [place] (SWRLAB)[address] [place] [address] [place] Potassium [Moles/Vol] 3.5 mmol/L Normal 3.5-5.1 [facility] Comment on above: Result Comment: [facility] potassium values may be up to 0.5 mmol/L lower than serum values. Performed By: #### L AB103, LAB15 ####Heart Doctor: ANA HIGGINS ([id number])[facility] [place] (SWRLAB)[address] Sodium [Moles/Vol] 137 mmol/L Normal 136-145 [facility] Comment on above: Performed By: #### L AB103, LAB15 ####Heart Doctor: ANA HIGGINS ([id number])[facility] [place] (SWRLAB)[address] [place] [address] [place] Urea nitrogen [Mass/Vol] 11 mg/dL Normal 9-23 [facility] Comment on above: Performed By: #### L AB103, LAB15 ####Heart Doctor: ANA HIGGINS ([id number])[facility]USAn[facility] DALEVICKI RITTMAN (SWRLAB)[address] [place] [address] [place] Anion gap [Moles/Vol] 4 mmol/L Normal 3-13 [facility] Comment on above: Performed By: #### L AB15 ####Heart Doctor: ANA HIGGINS ([id number])[facility]US[facility] DALEVICKI RITTMAN (SWRLAB)[address] [place] [address] [place] Calcium [Mass/Vol] 6.3 mg/dL Low 8.8-10.0 [facility] Comment on above: Performed By: #### L AB15 ####Heart Doctor: ANA HIGGINS ([id number])[facility]US[facility] DALEVICKI RITTMAN (SWRLAB)[address] [place] [address] [place] Chloride [Moles/Vol] 116 mmol/L High 98-[address] [facility] Comment on above: Performed By: #### L AB15 ####Heart Doctor: ANA HIGGINS ([id number])[facility] CO[place] (SWRLAB)[address] CO2 [Moles/Vol] 20 mmol/L Low 23-31 [facility] Comment on above: Performed By: #### L AB15 ####Heart Doctor: ANA HIGGINS ([id number])[facility]US[facility] CO[place] (SWRLAB)[address] Creatinine [Mass/Vol] 0.51 mg/dL Low 0.57-1.11 [facility] Comment on above: Performed By: #### L AB15 ####Heart Doctor: ANA HIGGINS ([id number])[facility]USAnais CASTREJONTMAN (SWRLAB)[address] [place] [address] GLOMERULAR FILTRATION RATE ML/MIN/1.73 SQ M.PREDICTED >90.0 Normal >60.0 [facility] Comment on above: Result Comment: Calc ulation based on the Chronic Kidney Disease Epidemiology Collaboration (CKD-EPI) equation refit without adjustment for race Performed By: #### L AB15 ####Heart Doctor: ANA HIGGINS ([id number])[facility] [place] (SWRLAB)[address] [place] [address] [place] Glucose [Mass/Vol] 70 mg/dL Low 82-115 [facility] Comment on above: Performed By: #### L AB15 ####Heart Doctor: ANA HIGGINS ([id number])[facility]US[facility] [place] (SWRLAB)[address] [place] [address] [place] Potassium [Moles/Vol] 2.3 mmol/L Critically low 3.5-5.1 [facility] Comment on above: Result Comment: [facility] potassium values may be up to 0.5 mmol/L lower than serum values. Performed By: #### L AB15 ####Heart Doctor: ANA HIGGINS ([id number])[facility]USAnais VICKI LUCÍATMAN (SWRLAB)[address] [place] [address] Sodium [Moles/Vol] 140 mmol/L Normal 136-145 [facility] Comment on above: Performed By: #### L AB15 ####Heart Doctor: ANA HIGGINS ([id number])[facility] VICKISARAH CASTREJONTMAN (SWRLAB)[address] [place] [address] Urea nitrogen [Mass/Vol] 9 mg/dL Normal 9-23 [facility] Comment on above: Performed By: #### L AB15 ####Heart Doctor: ANA HIGGINS ([id number])[facility] VICKI LUCÍATMAN (SWRLAB)[address] [place] [address] Basic metabolic 1998 panelon 10-14-2024 Anion gap [Moles/Vol] 8 mmol/L 3 - 13 mmol/L [facility] Calcium [Mass/Vol] 9.5 mg/dL 8.8 - 10. 0 mg/dL [facility] Chloride [Moles/Vol] 102 mmol/L 98 - 10 7 mmol/L [facility] CO2 [Moles/Vol] 27 mmol/L 23 - 31 mmol/L [facility] Creatinine [Mass/Vol] 0.72 mg/dL 0.57 - 1.11 mg/dL [facility] GFR/1.73 sq M.predicted (S/P/Bld) [Vol rate/Area] - PINF [facility] Comment on above: Calculation based on the Chronic Kidney Disease Epidemiology Collaboration (CKD-EPI) equation refit without adjustment for race Glucose [Mass/Vol] 98 mg/dL 82 - 115 mg/dL [facility] Interpretation and review of laboratory results Normal [facility] Potassium [Moles/Vol] 3.5 mmol/L 3.5 - 5.1 mmol/L [facility] Comment on above: Plasma potassium conrado ues may be up to 0.5 mmol/L lower than serum values. Sodium [Moles/Vol] 137 mmol/L 136 - 145 mmol/L [facility] Urea nitrogen [Mass/Vol] 11 mg/dL 9 - 23 mg/dL [facility] Basic metabolic 1998 panelOr dered By: Nicola Herrera on 10-14-2024 Anion gap [Moles/Vol] 4 mmol/L 3 - 13 mmol/L [facility] Calcium [Mass/Vol] 6.3 mg/dL Low 8.8 - 10. 0 mg/dL [facility] Chloride [Moles/Vol] 116 mmol/L High 98 - 10 7 mmol/L [facility] CO2 [Moles/Vol] 20 mmol/L Low 23 - 31 mmol/L [facility] Creatinine [Mass/Vol] 0.51 mg/dL Low 0.57 - 1.11 mg/dL [facility] GFR/1.73 sq M.predicted (S/P/Bld) [Vol rate/Area] - PINF [facility] Comment on above: Calculation based on the Chronic Kidney Disease Epidemiology Collaboration (CKD-EPI) equation refit without adjustment for race Glucose [Mass/Vol] 70 mg/dL Low 82 - 115 mg/dL [facility] Interpretation and review of laboratory results Abnormal [facility] Potassium [Moles/Vol] 2.3 mmol/L Critically low 3.5 - 5.1 mmol/L [facility] Comment on above: Plasma potassium conrado ues may be up to 0.5 mmol/L lower than serum values. Sodium [Moles/Vol] 140 mmol/L 136 - 145 mmol/L [facility] Urea nitrogen [Mass/Vol] 9 mg/dL 9 - 23 mg/dL [facility] COVID-19, Flu A/B, and RSV C omboon 10-14-2024 Interpretation and review of laboratory results Normal [facility] ED Nursing Noteon 10-14-2024 ED Nursing Note Patient ambulated to restroom. Normal [facility] ED Nursing Note Pateint to room 5 with c/o dizziness for three weeks. Patient reports she has tingling around her mouth and chin that started today. Patient reports fatigue, cough, chills, headache, muscle and joint pain for three weeks, however over the last three days symptoms have increased. V/S obtained, call light within reach. Patient finished an antibiotic this am. Normal [facility] ED Provider Noteon ED Provider Note EMERGENCY [...] Hypertension Closed right hip fracture, initial encounter ([facility]) Closed 2-part intertrochanteric fracture of proximal end of right femur, initial encounter ([facility]) CURRENT MEDICATIONS Previous Medications ALBUTEROL (2.5 MG/3ML) [...] pupils a (more content not included)... Normal [facility] ESR (Bld) [Velocity]Ordered By: Jolanta Marks on 10-14-2024 Interpretation and review of laboratory results Normal [facility] Laboratory - Chemistry and C hemistry - challengeon 10-14-2024 Magnesium [Mass/Vol] 1.7 mg/dL 1.6 - 2 .6 mg/dL [facility] - Hematology and Cell countsOrdered By: Jolnata Marks on 10-14-2024 ESR (Bld) [Velocity] 8 mm/h [facility] - Microbiology an d Antimicrobial susceptibilityon 10-14-2024 FLUAV RNA MARCO ANTONIO+probe Ql (Resp) Not detected Not Detected [facility] FLUBV RNA MARCO ANTONIO+probe Ql (Resp) Not detected Not Detected [facility] RSV RNA MARCO ANTONIO+probe Ql (Resp) Not detected Not Detected [facility] SARS-CoV-2 (COVID-19) RNA MARCO ANTONIO+probe Ql (Resp) Not detected Not Detected [facility] SARS-CoV-2 (COVID-19) RNA MARCO ANTONIO+probe Ql (Unsp spec) Methodology: real-time, RT-PCR The SARS-CoV-2, Flu A/B, and RSV Combo assay is intended for in vitro diagnostic use under the FDA Emergency Use Authorization (EUA). This test has not been FDA cleared or approved. In compliance with this authorization, please visit www.fda.gov/media/142 435/download or www.fda.gov/media/612 436/download to access the applicable information sheets. [facility] MAGNESIUMon 10-14-2024 Magnesium [Mass/Vol] 1.7 mg/dL Normal 1.6-2.[address] [facility] Comment on above: Result Comment: ANNABELLE R COMMENTS: Higher values can be expected in females during menses. Performed By: #### L AB103, LAB15 ####Heart Doctor: ANA HIGGINS ([id number])[facility] VICKIProvadeAN (Layer)[address] [place] [address] Magnesium [Mass/Vol]on 10-14 Interpretation and review of laboratory results Normal [facility] Higher values can be expected in females during menses. [facility] SARS-COV-2, FLU A/B, AND RSV [...] In compliance with this authorization, please visit www.fda.gov/media/317 435/download or www.fda.gov/media/497 436/download to access the applicable information sheets. Normal [facility] Comment on above: Performed By: #### L [id number] ####Heart Doctor: ANA HIGGINS ([id number])[facility] VICKIProvadeAN (inMarketRLAB)[address] [place] [address] [place] SEDIMENTATION RATE, AUTOMATE Don 10-14-2024 SEDIMENTATION RATE, ERYTHROCYTE 8 mm/hr Normal 0-20 [facility] Comment on above: Performed By: #### L AB322 ####Heart Doctor: ANA HIGGINS ([id number])[place] [address] (SWRLAB)[address] [place] [address] [place] Pulmonary Visit Reporton Pulmonary Visit Report [facility] [place] [address] [place] [address] OFFICE VISIT Date of Service: 09/30/24 MR#: [id number] Acct: [id number] Name: SULLY PERDOMO STEPHAN Rep #: [id number] : 1955 Provider: OLIVE Gilman Age/Sex: 69/F Location: [facility].PMW Status: Signed Assessment and Plan Assessment and [...] evaluation. Intake (more content not included)... Normal [facility] Chest without Contraston Chest without Contrast [facility] Services [address] [place] [address] Chest without Contrast MR#: [id number] Acct: [id number] Name: SULLY PERDOMO STEPHAN Rep #: [id number] : 1955 F 69 From: Gavin shah MD PCP: Dr. Jeremiah Martínez MD Status: [facility] Study: Chest without Contrast Date of Exam: 09/23/24 Exam# [id number] Ordering Dr: Ana Gilman HUMAN RESOURCES HR GENERALIST HUMAN RESOURCES HR GENERALIST-C ADDENDUM by Dr. Gavin Srinivasan MD on 10/05/24 at 0746 ======== ADDENDUM ======== [id number] This is an addendum report. There is [...] Gilman; Dr. Jeremiah Martínez MD * Signed [id number] STUDY: CT CHEST WITHOUT CONTRAST REASON FOR [...] Srinivasan MD at 12:51 EST , CC: HUMAN RESOURCES HR GENERALIST-Dawson Gilman; Dr. Jeremiah Martínez MD Event Marketing Manager: Signed Normal [facility] Echo Completeon 09-23-2024 Echo Complete [facility] [place] [address] [address] Echo Complete 09/23/24 0808 MR#: [id number] Acct: [id number] Name: SULLY PERDOMO STEPHAN Rep #: [id number] : 1955 69 From: Vanessa Chowdhury MD Attending Dr: OLIVE Hinds Status: RE G CLI Ordering Dr: Ana Gilman NP HUMAN RESOURCES HR GENERALIST-C Date: Location: [place] Sex: F C Admitted: Reason For Study: [...] Physician: Ana Gilman Performed By: Rica Oropeza RDCS 09/23/24916 Date Vanessa Chowdhury MD CC: OLIVE Gilman; Dr. Jeremiah Martínez MD Date Dictated: 09/23/24807 Date Transcribed: 09/23/24916 Event Marketing Manager: Signed Normal [facility] Pulmonary Visit Reporton Pulmonary Visit Report [facility] of [address] [place] [address] OFFICE VISIT Date of Service: 08/30/24 MR#: [id number] Acct: [id number] Name: SULLY PERDOMO STEPHAN Rep #: [id number] : 1955 Provider: OLIVE Gilman Age/Sex: 69/F Location: [facility].PMW Status: Signed Assessment and Plan Assessment and [...] postnasal drip. Cough can be productive of lcik-veclca-dpooeon sputum. She denies any hemoptysis. She denies [...] FU Chief Complaint: nasal surgery DME Vendor: [employer] Accompanied by: Self Allergies budesonide Allergy (Intermediate, Verified 08/30/24 14:13) boils codeine Allergy (Verified 08/30/24 14:13) Heart Attack Sx (more content not included)... Normal [facility] 6 Minute Walk Teston 024 6 Minute Walk Test y [facility] Pulmonary Services/Neurology [address] [place] [address] MR#: [id number] Acct: [id number] Name: SULLY PERDOMO STEPHAN Rep #: [id number] : 1955 68 From: Dereck Abreu MD Referring Dr: Ana Gilman NP HUMAN RES[employer] HR GENERALIST-C Status: REG CLI Location: PSN Date: Sex: [...] CC: Date Dictated: 07/08/241535 Date Transcribed: 07/08/241535 Event Marketing Manager: Dr. Dereck Abreu MD Signed Normal [facility] Chest without Contraston Chest without Contrast [facility] Services [address] [place], [place] [id number] Chest without Contrast MR#: [id number] Acct: [id number] Name: SULLY PERDOMO STEPHAN Rep #: [id number] : 1955 F 68 From: Demetrio Telles MD PCP: Dr. Jeremiah Martínez MD Status: REG CLI Study: Chest without Contrast Date of Exam: 06/07/24 Exam# [id number] Ordering Dr: Ana Gilman NP HUMAN RES[employer] HR GENERALIST-C [id number] EXAM: CT CHEST WITHOUT INTRAVENOUS CONTRAST CLINICAL [...] Signed: Demetrio Telles MD at 18:01 EDT Reading Location ID and State: [facility] / [place] Tel , Service support , CC: OLIVE Gilman; Dr. Jeremiah Martínez MD Event Marketing Manager: Signed Normal [facility] XR Chest 2 Viewson 4 Hyperinflation of the lungs with coarsening of the interstitial lung markings, suggestive of a component of obstructive lung disease. No focal consolidation is identified. Report Dictated on Electronically Signed By: Rambo Samano MD Electronically Signed Date/Time: 05/23/2024 12:54 PM EDT [facility] Outline App SYSTEM Patient Name: SULLY PERDOMO : 1955 [...] are degenerative changes of the thoracic spine. [facility] Rambo Samano MD - 05/23/2024 [...] Electronically Signed Date/Time: 05/23/2024 12:54 PM EDT [facility] Radiology Study observation (narrative) [facility] XR Chest 2 ViewsOrdered By: Rambo Samano on 05-23-2024 [facility] MR Brain WO and W contrast I Von 05-13-2024 No acute intracranial abnormality or abnormal intracranial enhancement. Significant interval change in appearance of the brain since prior MRI of 11/09/2023. No significant interval change in appearance of the paranasal sinuses since prior MRI. Report Dictated on Electronically Signed By: Jack Navarro MD Electronically Signed Date/Time: 05/13/2024 11:38 AM T [facility] RADIOLOGY SYSTEM [facility] 1955 [id number] Exam Date/Time: 05/13/2024 09:22 Procedure: MR BRAIN [...] orbits and extracranial soft tissues are unremarkable. [facility] RADIOLOGY SYSTEM Jack Navarro MD - 05/13/2024 Patient Name: [facility]ULLY [facility]DOMO : 1955 [id number] Exam Date/Time: 05/13/2024 09:22 Procedure: MR BRAIN [...] Electronically Signed Date/Time: 05/13/2024 11:38 AM EDT [facility] Addendum by Chacha Navarro MD on 06/07/2024 9:37 AM EDT Patient Name: SULLY [facility]DOMO : 1955 [id number] Exam Date/Time: 05/13/2024 09:22 Procedure: MR BRAIN [...] Electronically Signed Date/Time: 05/13/2024 11:38 AM EDT [facility] Radiology Study observation (narrative) [facility] MR Brain WO and W contrast I VOrdered By: Jack Navarro on 05-13-2024 [facility] Phone: XR Ankle - right 3 Viewson 0 11-27-2023 No acute osseous abnormality of the right ankle. Mild soft tissue swelling overlying the lateral malleolus. Report Dictated on Electronically Signed By: Phillip Teague MD Electronically Signed Date/Time: 11/27/2023 9:20 AM EDT [facility] RADIOLOGY SYSTEM Patient Name: SULLY PERDOMO : [...] tissue swelling seen overlying the lateral malleolus. [facility] Gypsy Teague MD - 11/27/2023 [...] Electronically Signed Date/Time: 11/27/2023 9:20 AM EDT [facility] XR Ankle - right 3 ViewsOrde red By: Gypsy Teague on 11-27-2023 [employer] Work Phone: XR Knee - right 3 Viewson Moderate degenerativ e narrowing involving the medial compartment of the right knee similar compared to the prior examination. Osteopenia Report Dictated on Electronically Signed By: Phillip Teague MD Electronically Signed Date/Time: 11/27/2023 9:25 AM EDT [facility] Outline App SYSTEM Patient Name: SULLY PERDOMO : 1955 [...] no effusion. The soft tissues are unremarkable. [facility] Gypsy Teague MD - 11/27/2023 Patient Name: [...] Electronically Signed Date/Time: 11/27/2023 9:25 AM EDT [facility] No Panel Informationon 11-23 Radiology Study observation (narrative) [facility] MR Brain WO contraston 11-08 No acute intracranial abnormality. Postoperative changes of the paranasal sinuses. Mucosal thickening of the nasal sinuses as discussed. Frothy secretions in the right maxillary sinus nonspecific though raise possibility of acute sinusitis if in the appropriate clinical setting. Report Dictated on Electronically Signed By: Jack Navarro MD Electronically Signed Date/Time: 11/09/2023 3:48 PM [facility] Outline App SYSTEM Patient Name: SULLY PERDOMO : 1955 [...] orbits and extracranial soft tissues are unremarkable. [facility] RADIOLOGY SYSTEM Jack Navarro MD - 11/09/2023 Patient Name: [facility]ULLY [facility]DOMO : 1955 [id number] Exam Date/Time: 11/09/2023 14:37 Procedure: MR BRAIN [...] Electronically Signed Date/Time: 11/09/2023 3:48 PM EST [facility] Radiology Study observation (narrative) [facility] [employer] MR Brain WO contrastOrdered By: Jack Navarro on 11-09-2023 [place] [employer] Work Phone: Gram stain for investigation of transfusion reactionOrdered By: Hai Hess on 10-23-2023 Microscopic observation Gram stain Nom (Unsp spec) [facility] Microscopic observation Gram stain Nom (Unsp spec) [facility] No Panel InformationOrdered By: Hai Hess on 10-23-2023 Nasopharyngeal Culture Pseudomonas aeruginosa [facility] Nasopharyngeal Culture Pseudomonas aeruginosa [facility] XR Chest 2 Viewson 3 Hyperinflation of the lungs with coarsening of the interstitial lung markings, suggestive of a component of obstructive lung disease. No focal consolidation is identified. Report Dictated on Electronically Signed By: Rambo Samano MD Electronically Signed Date/Time: 06/24/2023 7:31 PM EDT [facility] Patient Name: SULLY PERDOMO : [...] are degenerative changes of the thoracic spine. [facility] Rambo Samano MD - 06/24/2023 Patient [...] Date/Time: 06/24/2023 7:31 PM EDT [facility] [employer] Radiology [facility]narrative[facility] 2 ViewsOrdered By: Rambo Samano on 06-24-2023 [facility]: XR Hip - left 3 Viewson 03-07 No acute osseous abnormality of the left hip. Specifically, no suspicious osseous lesions. Mild degenerative changes of both hip joints. Osteopenia. Report Dictated on Electronically Signed By: Phillip Teague MD Electronically Signed Date/Time: 03/19/2023 1:30 PM EDT [facility] Outline App SYSTEM Patient Name: SULLY PERDOMO : 1955 [id number] Exam Date/Time: 03/18/2023 12:38 Procedure: XR HIP [...] diffusely osteopenic. The soft tissues are normal. [facility] RADIOLOGY SYSTEM Gypsy Teague MD - 03/19/2023 Patient [...] Electronically Signed Date/Time: 03/19/2023 1:30 PM EDT [facility] - left 3 ViewsOrdered By: Gypsy Teague on 03-19-2023 [employer] Work Phone: XR Hip - left 3 Viewson 03-07 Radiology Study observation (narrative) [facility] [employer] No Panel Informationon 12-16 Arthritic changes. N o acute process. Report Dictated on Electronically Signed By: Angel Rao Electronically Signed Date/Time: 12/16/2022 3:02 PM EDT [facility] RADIOLOGY SYSTEM Patient Name: SULLY PERDOMO : [...] tissue abnormalities. No joint effusion is appreciated. [facility] Angel RaoDO - 12/16/2022 Patient Name: SULLY PERDOMO : [...] Electronically Signed Date/Time: 12/16/2022 3:02 PM EDT [facility] Radiology Study observation (narrative) [facility] [employer] No Panel InformationOrdered By: Angel Rao on 12-16-2022 [facility] [employer] Work Phone: XR Knee - right 1 [...] tissue abnormalities. No joint effusion is appreciated. [facility] [facility] Jalen Angel, DO - 12/16/2022 Patient Name: SULLY PERDOMO [...] Electronically Signed Date/Time: 12/16/2022 3:02 PM EDT [facility] XR Chest 2 Viewson 3 No acute cardiopulmonary process. Report Dictated on Electronically Signed By: Bartolome Aguayo Electronically Signed Date/Time: 11/28/2022 2:49 PM EDT [facility] Patient Name: SULLY PERDOMO : [...] pneumothorax. Osseous structures: No acute osseous abnormality. [facility] Bartolome Aguayo MD - 11/28/2022 [facility] Name[facility] 1955 [id number] Exam Date/Time: 11/27/2022 08:35 Procedure: XR CHEST [...] Electronically Signed Date/Time: 11/28/2022 2:49 PM EDT [facility] ViewsOrdered By: Bartolome Aguayo on 11-28-2022 [employer] Work Phone: XR Chest 2 Viewson Radiology Study observation (narrative) [employer] Basic Metabolic Panelon 10-0 Anion gap [Moles/Vol] 9 mmol/L Normal 3-13 [facility] Comment on above: Performed By: #### B MP3 #### [facility] [employer] [facility] [address] [place] [address] Calcium [Mass/Vol] 9.6 mg/dL Normal 8.4-10.4 [facility] Comment on above: Performed By: #### B MP3 #### [facility] [address] [place] [address] CO2 [Moles/Vol] 23 mmol/L Normal 22-30 [facility] Comment on above: Performed By: #### B MP3 #### [facility] [address] [place] [address] Creatinine [Mass/Vol] 0.69 mg/dL Normal 0.52-1.25 [facility] Comment on above: Performed By: #### B MP3 #### [facility] [address] [place] [address] eGFR OTHER > 90.0 Normal >60 [facility] Comment on above: Result Comment: KDIG [...] By: #### B MP3 #### [facility] [address] [place] [address] GFR/1.73 sq M.predicted among blacks MDRD (S/P/Bld) [Vol rate/Area] mL/min/{1.73_m2} Normal >60 [facility] Comment on above: Performed By: #### B MP3 #### [facility] [address] [place] [address] Glucose [Mass/Vol] 100 mg/dL Normal 70-100 [facility] Comment on above: Performed By: #### B MP3 #### [facility] [address] [place] [address] Urea nitrogen [Mass/Vol] 12 mg/dL Normal 9-20 [facility] Comment on above: Performed By: #### B MP3 #### [facility] [address] [place] [address] Chloride [Moles/Vol] 107 mmol/L Normal 98-107 [facility] Comment on above: Performed By: #### B MP3 #### [facility] [address] [place] [address] Potassium [Moles/Vol] 3.9 mmol/L Normal 3.5-5.1 [facility] Comment on above: Performed By: #### B MP3 #### [facility] [address] [place] [address] Sodium [Moles/Vol] 138 mmol/L Normal 135-145 [facility] Comment on above: Performed By: #### B MP3 #### [facility] [address] [place] [address] CT Head or Brain w/ + w/o Co ntraston 06-11-2022 CT Head or Brain w/ + w/o Contrast Patient Name: SULLY PERDOMO Computed Tomography ACCESSION EXAM DATE/TIME PROCEDURE ORDERING PROVIDER [id number] 06/11/2022 11:[address] Head or Brain w/ + w/ MD CRISTOPHER, JEREMIAH o Contrast CPT code 43758 Q9967 Reason For Exam (CT Head or [...] and Time: 06/12/2022 12:04 Normal [facility] CR Wrist Complete 3 Views Ri [facility] 12-01-2021 CR Wrist Complete 3 Views Right Patient Name: SULLY PERDOMO Diagnostic Radiology ACCESSION EXAM DATE/TIME PROCEDURE ORDERING PROVIDER [id number] 12/01/2021 10:20 EDT CR Wrist Complete 3 MD IBARRA DAVID L Views Right CPT code 06316 Reason For Exam (CR Wrist Complete 3 [...] NICHOLAS Transcribed Date and Time: 12/01/2021 10:34 [facility] XR WRIST RIGHT 3 VWon 2021 Patient Name: SULLY PERDOMO Diagnostic Radiology ACCESSION EXAM DATE/TIME PROCEDURE ORDERING PROVIDER [id number] 12/01/2021 10:20 EDT CR Wrist Complete 3 MD IBARRA DAVID L Views Right CPT code 93996 Reason For Exam (CR Wrist Complete 3 [...] NICHOLAS Transcribed Date and Time: 12/01/2021 10:34 [facility] Dk Florez MD - 12/01/2021 Patient Name: SULLY PERDOMO Diagnostic Radiology ACCESSION EXAM DATE/TIME PROCEDURE ORDERING PROVIDER [id number] 12/01/2021 10:20 EDT CR Wrist Complete 3 MD IBARRA DAVID L Views Right CPT code 53317 Reason For Exam (CR Wrist Complete 3 [...] NICHOLAS Transcribed Date and Time: 12/01/2021 10:34 [facility] Work Phone: Radiology Study observation (narrative) [facility] Work Phone: XR WRIST RIGHT 3 VWOrdered B y: Dk Florez on 12-01-2021 [facility] Work Phone: MRI Low Ext Joint w/o Contra st [facility] 09-20-2021 MRI Low Ext Joint w/o Contrast Right Patient Name: SULLY PERDOMO Magnetic Resonance Imaging ACCESSION EXAM DATE/TIME PROCEDURE ORDERING PROVIDER [id number] 09/20/2021 16:41 EST MRI Low Ext Joint w/o MD CRISTOPHER, JEREMIAH Oleary Contrast Right CPT code 21214 Reason For Exam (MRI Low Ext Joint [...] and Time: 09/22/2021 3:57 Normal [facility] CR Knee Complete 4+ Views Abner mendez 07-12-2021 CR Knee Complete 4+ Views Right Patient Name: SULLY PERDOMO Diagnostic Radiology ACCESSION EXAM DATE/TIME PROCEDURE ORDERING PROVIDER [id number] 07/12/2021 12:59 EDT CR Knee Complete 4+ MD CRISTOPHER, JEREMIAH H Views Right CPT code 54040 Reason For Exam (CR Knee Complete 4+ [...] and Time: 07/15/2021 8:35 Normal [facility] CT Cervical Spine WO Contras tOrdered By: Anna Maurer on 01-18-2021 Patient Name: SULLY PERDOMO Computed Tomography ACCESSION EXAM DATE/TIME PROCEDURE ORDERING PROVIDER [id number] 01/18/2021 01:[address] Spine Cervical w/o ANNA BUENO Contrast CPT code 27958 Reason For Exam (CT Spine Cervical w/o [...] multilevel degenerative findings. Report Dictated on Workstation: [facility] --- Final --- Dictating Physician: MD SALOMON JAMES Signed Date and Time: 01/18/2021 2:26 am Signed by: MD SALOMON JAMES Transcribed Date and Time: 01/18/2021 2:27 [facility] Work Phone[facility] From [facility] - 01/18/2021 2:27 AM EDT Patient Name: SULLY PERDOMO Computed Tomography ACCESSION EXAM DATE/TIME PROCEDURE ORDERING PROVIDER [id number] 01/18/2021 01:[address] Spine Cervical w/o 5816 ANNA KAM Contrast CPT code 02260 Reason For Exam (CT Spine Cervical w/o [...] multilevel degenerative findings. Report Dictated on Workstation: [facility] --- Final --- Dictating Physician: MD SALOMON JAMES Signed Date and Time: 01/18/2021 2:26 am Signed by: MD SALOMON JAMES Transcribed Date and Time: 01/18/2021 2:27 [facility] Work Phone: CT Head WO ContrastOrdered B y: Anna Maurer on 01-18-2021 Patient Name: SULLY PERDOMO Computed Tomography ACCESSION EXAM DATE/TIME PROCEDURE ORDERING PROVIDER [id number] 01/18/2021 01:[address] Head or Brain w/o 5816 ANNA KAM Contrast CPT code 83152 Reason For Exam (CT Head or Brain [...] multilevel degenerative findings. Report Dictated on Workstation: [facility] --- Final --- Dictating Physician: MD SALOMON JAMES Signed Date and Time: 01/18/2021 2:26 am Signed by: MD SALOMON JAMES Transcribed Date and Time: 01/18/2021 2:27 [facility] Work Phone: [facility], [facility] Incoming Radiology Results From [facility] - 01/18/2021 2:27 AM EDT Patient Name: SULLY PERDOMO Computed Tomography ACCESSION EXAM DATE/TIME PROCEDURE ORDERING PROVIDER [id number] 01/18/2021 01:[address] Head or Brain w/o 58ANNA CASANOVA Contrast CPT code 05238 Reason For Exam (CT Head or Brain [...] multilevel degenerative findings. Report Dictated on Workstation: [facility] --- Final --- Dictating Physician: MD SALOMON JAMES Signed Date and Time: 01/18/2021 2:26 am Signed by: MD SALOMON JAMES Transcribed Date and Time: 01/18/2021 2:27 [facility] Work Phone: [employer]dered By: Anna Maurer on 01-18-2021 Anna Maurer MD 01/18/2021 2:54 AM [employer] Date/Time: 01/18/2021 2:54 AM Performed by: Anna Maurer MD Authorized by: Anna Maurer MD Consent: Consent obtained: Verbal Consent given [...] Ultrasound ACCESSION EXAM DATE/TIME PROCEDURE ORDERING PROVIDER [id number] 10/04/2020 10:45 EST Carotid Duplex MD CRISTOPHER, JEREMIAH Oleary Ultrasound Complete CPT code 70461 Reason For Exam ( Carotid Duplex Ultrasound [...] 10/04/2020 1:08 Cardiovascular ACCESSION EXAM DATE/TIME PROCEDURE [id number] 10/04/2020 10:45 EST Carotid Duplex Ultrasound Complete CPT code 28196 Reason For Exam ( Carotid Duplex Ultrasound [...] JEFFREY Transcribed Date and Time: 10/04/2020 1:08 [facility], [facility] Incoming Cardiology Results From [facility] - 10/04/2020 1:08 PM EST [facility]: [id number] Ul[facility]ound ACCESSION EXAM DATE/TIME PROCEDURE ORDERING PROVIDER [id number] 10/04/2020 10:45 EST VL Carotid Duplex MD CRISTOPHER, JEREMIAH Oleary Ultrasound Complete CPT code 35198 Reason For Exam (VL Carotid Duplex Ultrasound [...] 10/04/2020 1:08 Cardiovascular ACCESSION EXAM DATE/TIME PROCEDURE [id number] 10/04/2020 10:45 EST Carotid Duplex Ultrasound Complete CPT code 48639 Reason For Exam ( Carotid Duplex Ultrasound [...] JEFFREY Transcribed Date and Time: 10/04/2020 1:08 [place], [place] CT Sinus WO Contrast Limited on 09-14-2020 [id number] Computed Tomography ACCESSION EXAM DATE/TIME PROCEDURE ORDERING PROVIDER [id number] 09/14/2020 10:[address] Maxillofacial w/o UNASSIGNED, UNASSIGNED Contrast CPT code 29771 Reason For Exam (CT Maxillofacial w/o Contrast) [...] DIANE Transcribed Date and Time: 09/14/2020 2:21 [place] [facility], [facility] Incoming Radiology Results From [facility] - 09/14/2020 2:21 PM EST Patient Name: SULLY PERDOMO Computed Tomography ACCESSION EXAM DATE/TIME PROCEDURE ORDERING PROVIDER [id number] 09/14/2020 10:[address] Maxillofacial w/o UNASSIGNED, UNASSIGNED Contrast CPT code 88539 Reason For Exam (CT Maxillofacial w/o Contrast) [...] DIANE Transcribed Date and Time: 09/14/2020 2:21 [place] XR CHEST (2 VW)on 08-17-2020 Patient Name: SULLY PERDOMO Diagnostic Radiology ACCESSION EXAM DATE/TIME PROCEDURE ORDERING PROVIDER [id number] 08/17/2020 11:16 EST CR Chest PA & LAT MD CRISTOPHER, JEREMIAH Oleary CPT code 64355 Reason For Exam (CR Chest PA & [...] was communicated to JEREMIAH MARTÍNEZ via the [employer] Critical Result system on 08/17/2020 12:41 PM EST, Message ID [id number]. Report Dictated on --- Final --- Dictating Physician: ANNA ELIAS DO, I Signed Date and Time: 08/17/2020 12:41 pm Signed by: ANNA ELIAS DO, I Transcribed Date and Time: 08/17/2020 12:42 [place] [facility], [facility] Incoming Radiology Results From [facility] - 08/17/2020 12:42 PM EST Patient Name: SULLY PERDOMO Diagnostic Radiology ACCESSION EXAM DATE/TIME PROCEDURE ORDERING PROVIDER [id number] 08/17/2020 11:16 EST CR Chest PA & LAT MD MARTÍNEZ RICHARD H CPT code 21754 Reason For Exam (CR Chest PA & [...] was communicated to JEREMIAH MARTÍNEZ via the [employer] Critical Result system on 08/17/2020 12:41 PM EST, Message ID [phone]. Report Dictated on --- Final --- Dictating Physician: ANNA ELIAS DO, I Signed Date and Time: 08/17/2020 12:41 pm Signed by: ANNA ELIAS DO, I Transcribed Date and Time: 08/17/2020 12:42 [place] CT CERVICAL SPINE WO SNUNY Kobe 06-24-2020 Patient Name: SULLY PERDOMO ---CT--- Exam Date/Time 06/24/2020 08:40:[address] Spine Cervical w/o Contrast Ordering Physician JHONATAN [place] Accession Number [id number] CPT4 Codes 84617 () Reason For Exam Fall. Pain Report [...] WILLIAM Transcribed Date and Time: 06/24/2020 9:07 [facility], [facility] Incoming Radiology Results From [facility] - 06/24/2020 9:08 AM EDT Patient Name: SULLY PERDOMO ---CT--- Exam Date/Time 06/24/2020 08:40:[address] Spine Cervical w/o Contrast Ordering Physician JHONATAN MO Accession Number [id number] CPT4 Codes 62045 () Reason For Exam Fall. Pain Report [...] WILLIAM Transcribed Date and Time: 06/24/2020 9:07 [place] CT FACIAL BONES WO CONTRASTo n 06-24-2020 Patient Name: SULLY PERDOMO ---CT--- Exam Date/Time 06/24/2020 08:40:[address] Maxillofacial w/o Contrast Ordering Physician JHONATAN MO Accession Number [id number] CPT4 Codes 11902 () Reason For Exam Fall with nasal [...] WILLIAM Transcribed Date and Time: 06/24/2020 9:07 [facility] [place] Iam, Sebastián Incoming Radiology Results From [facility] - 06/24/2020 9:07 AM EDT Patient Name: SULLY PERDOMO ---CT--- Exam Date/Time 06/24/2020 08:40:[address] Maxillofacial w/o Contrast Ordering Physician 57Marilu -JHONATAN QUIROS Accession Number [id number] CPT4 Codes 55352 () Reason For Exam Fall with nasal [...] WILLIAM Transcribed Date and Time: 06/24/2020 9:07 [facility], [place] HEAD WO [facility] 2019 Patient Name: SULLY PERDOMO ---CT--- Exam Date/Time 06/24/2020 08:40:[address] Head or Brain w/o Contrast Ordering Physician JHONATAN MO Accession Number [id number] CPT4 Codes 37327 () Reason For Exam Fall. Head injury. [...] I Transcribed Date and Time: 06/24/2020 8:57 [place] Iam, [facility] Incoming Radiology Results From [facility] - 06/24/2020 8:58 AM EDT Patient Name: SULLY PERDOMO ---CT--- Exam Date/Time 06/24/2020 08:40:[address] Head or Brain w/o Contrast Ordering Physician JHONATAN MO Accession Number [id number] CPT4 Codes 23770 () Reason For Exam Fall. Head injury. [...] I Transcribed Date and Time: 06/24/2020 8:57 [facility] [place] XR CLAVICLE RIGHTon 11-08-19 Patient Name: SULLY PERDOMO ---Diagnostic Radiology--- Exam Date/Time 11/08/2019 12:55:00 EST Exam CR Clavicle Complete Right Ordering Physician MD CRISTOPHER, JEREMIAH Oleary Accession Number [id number] CPT4 Codes 63466 () Reason For Exam rt shoulder pain [...] RISA Transcribed Date and Time: 11/08/2019 1:20 [facility] [place] [facility], [facility] Incoming Radiology Results From [facility] - 11/08/2019 1:20 PM EST Patient Name: SULLY PERDOMO ---Diagnostic Radiology--- Exam Date/Time 11/08/2019 12:55:00 EST Exam CR Clavicle Complete Right Ordering Physician MD MARTÍNEZ RICHARD H Accession Number [id number] CPT4 Codes 61754 () Reason For Exam rt shoulder pain [...] RISA Transcribed Date and Time: 11/08/2019 1:20 [place] XR KNEE RIGHT (MIN 4 VIEWS)o n 11-08-2019 Patient Name: SLULY PERDOMO ---Diagnostic Radiology--- Exam Date/Time 11/08/2019 12:55:00 EST Exam CR Knee Complete 4+ Views Right Ordering Physician MD MARTÍNEZ RICHARD H Accession Number [id number] CPT4 Codes 33881 () Reason For Exam rt knee pain [...] NEIL Transcribed Date and Time: 11/08/2019 1:46 [facility] [place] [facility] 11/08/2019 1:46 PM EST Patient Name: SULLY PERDOMO ---Diagnostic Radiology--- Exam Date/Time 11/08/2019 12:55:00 EST Exam CR Knee Complete 4+ Views Right Ordering Physician MD CRISTOPHER, JEREMIAH Oleary Accession Number [id number] CPT4 Codes 41954 () Reason For Exam rt knee pain [...] NEIL Transcribed Date and Time: 11/08/2019 1:46 [facility], [place] XR Shoulder Right 2 VWon Patient Name: SULLY PERDOMO ---Diagnostic Radiology--- Exam Date/Time 11/08/2019 12:55:00 EST Exam CR Shoulder 2+ Views Right Ordering Physician MD MARTÍNEZ RICHARD H Accession Number [id number] CPT4 Codes 34563 () Reason For Exam rt shoulder pain [...] RISA Transcribed Date and Time: 11/08/2019 1:18 [facility] [place] [facility] Incoming Radiology Results From [facility] - 11/08/2019 1:18 PM EST Patient Name: SULLY PERDOMO ---Diagnostic Radiology--- Exam Date/Time 11/08/2019 12:55:00 EST Exam CR Shoulder 2+ Views Right Ordering Physician MD MARTÍNEZ RICHARD H Accession Number [id number] CPT4 Codes 23184 () Reason For Exam rt shoulder pain [...] Transcribed Date and Time: 11/08/2019 1:18 [facility] [place], [place] CR Hip w/ Pelvis 2 or 3 View s [facility] 2019 CR Hip w/ Pelvis 2 or 3 Views Right Patient Name: SULLY PERDOMO Diagnostic Radiology Exam Date/Time 2019 09:06:38 EST Exam CR Hip w/ Pelvis 2 or 3 Views Right n Ordering Physician MD GARCES SALVATORE J Accession Number [id number] CPT4 Codes 74726 () Reason For Exam PAIN Report RIGHT [...] and Time: 2019 2:48 Normal [facility] XR HIP RIGHT (2-3 VIEWS)on 09-19-2018 Patient Name: SULLY PERDOMO ---Diagnostic Radiology--- Exam Date/Time 2019 09:06:38 EST Exam CR Hip w/ Pelvis 2 or 3 Views Right n Ordering Physician MD GARCES SALVATORE J Accession Number [id number] CPT4 Codes 94691 () Reason For Exam PAIN Report RIGHT [...] R Transcribed Date and Time: 2019 2:48 [employer] [facility] Sebastián Vitale Incoming Radiology Results From [facility] - 2019 2:51 PM EST Patient Name: SULLY PERDOMO ---Diagnostic Radiology--- Exam Date/Time 2019 09:06:38 EST Exam CR Hip w/ Pelvis 2 or 3 Views Right n Ordering Physician MD GARCES SALVATORE J Accession Number [id number] CPT4 Codes 10244 () Reason For Exam PAIN Report RIGHT [...] R Transcribed Date and Time: 2019 2:48 [facility] [place], [place] CR Hip w/ Pelvis 2 or 3 View s [facility] 06-22-2019 CR Hip w/ Pelvis 2 or 3 Views Right Patient Name: SULLY PERDOMO Diagnostic Radiology Exam Date/Time 06/22/2019 10:46:02 EDT Exam CR Hip w/ Pelvis 2 or 3 Views Right n Ordering Physician MD GARCES SALVATORE J Accession Number [id number] CPT4 Codes 50815 () Reason For Exam closed displaced interchanteric [...] and Time: 06/22/2019 1:15 Normal [facility] XR HIP RIGHT (2-3 VIEWS)on Patient Name: SULLY PERDOMO ---Diagnostic Radiology--- Exam Date/Time 06/22/2019 10:46:02 EDT Exam CR Hip w/ Pelvis 2 or 3 Views Right n Ordering Physician MD GARCES SALVATORE J Accession Number [id number] CPT4 Codes 98884 () Reason For Exam closed displaced interchanteric [...] KRIKOR Transcribed Date and Time: 06/22/2019 1:15 [facility] [place] [facility] Results From [facility] - 06/22/2019 1:18 PM EDT Patient Name: SULLY PERDOMO ---Diagnostic Radiology--- Exam Date/Time 06/22/2019 10:46:02 EDT Exam CR Hip w/ Pelvis 2 or 3 Views Right n Ordering Physician MD GARCES SALVATORE J Accession Number [id number] CPT4 Codes 28396 () Reason For Exam closed displaced interchanteric [...] KRIKOR Transcribed Date and Time: 06/22/2019 1:15 [place], [place] CBCon 06-13-2019 Erythrocyte distribution width (RBC) [Ratio] 14.7 % High 11.5 - 14.5 % [place] Hematocrit (Bld) [Volume fraction] 32.6 % Low 35 - 47 % [place] Hemoglobin (Bld) [Mass/Vol] 11.0 g/dL Low 11.7 - 16 g/dL [place] Interpretation and review of laboratory results Abnormal [place] MCH (RBC) [Entitic mass] 32.5 pg 26 - 34 pg [place] MCHC (RBC) [Mass/Vol] 33.8 % 32 - 36 % [place], [place] MCV (RBC) [Entitic vol] 96.3 fL 79 - 98 fL [place], [place] Platelet mean volume (Bld) [Entitic vol] 6.5 fL Low 7.4 - 10.4 fL [place] Platelets (Bld) [#/Vol] 276 10*3/uL 140 - 440 10*3/uL [place] RBC (Bld) [#/Vol] 3.39 10*6/uL Low 3.8 - 5.2 10*6/uL [place] WBC (Bld) [#/Vol] 10.6 10*3/uL 3.6 - 10.7 10*3/uL [place] Test Performed by [facility], [address], [place] [id number] [place] [address] CBC Auto Differentialon Absolute Baso # 0.1 10*3/uL 0 - 0.2 10*3/uL [place] Absolute Neut # 8.8 10*3/uL High 1.8 - 7 10*3/uL [place] Basophils/100 WBC (Bld) 0.5 % 0 - 2 % [place], [place] Eosinophils (Bld) [#/Vol] 0.0 10*3/uL 0 - 0.5 10*3/uL [place] Eosinophils/100 WBC (Bld) 0.0 % Low 1 - 6 % [place] Erythrocyte distribution width (RBC) [Ratio] 14.4 % 11.5 - 14.5 % [place] Granulocytes/100 WBC (Bld) 79.3 % 40 - 80 % [place] Hematocrit (Bld) [Volume fraction] 32.3 % Low 35 - 47 % [place] Hemoglobin (Bld) [Mass/Vol] 10.9 g/dL Low 11.7 - 16 g/dL [place] Interpretation and review of laboratory results Abnormal [place] Lymphocytes (Bld) [#/Vol] 1.2 10*3/uL 1 - 4.3 10*3/uL [place] Lymphocytes/100 WBC (Bld) 11.1 % Low 20 - 40 % [place] MCH (RBC) [Entitic mass] 32.3 pg 26 - 34 pg [place] MCHC (RBC) [Mass/Vol] 33.8 % 32 - 36 % [place] MCV (RBC) [Entitic vol] 95.5 fL 79 - 98 fL [place], [place] Monocytes (Bld) [#/Vol] 1.0 10*3/uL High 0 - 0.8 10*3/uL [place] Monocytes/100 WBC (Bld) 9.1 % 2 - 10 % [place], [place] Platelet mean volume (Bld) [Entitic vol] 6.5 fL Low 7.4 - 10.4 fL [place] Platelets (Bld) [#/Vol] 258 10*3/uL 140 - 440 10*3/uL [place] RBC (Bld) [#/Vol] 3.38 10*6/uL Low 3.8 - 5.2 10*6/uL [place] WBC (Bld) [#/Vol] 11.2 10*3/uL High 3.6 - 10.7 10*3/uL [place] Test Performed by [employer], [address] 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1955 Requested By: Remedify ED Order Number: [id number] Reading MD: Idania Salazar Measurements Intervals Mayer Rate: 83 P: 67 NJ: 172 QRS: 37 QRSD: 118 T: -67 QT: 420 QTc: 494 Interpretive Statements SINUS RHYTHM INCOMPLETE RIGHT BUNDLE BRANCH BLOCK Compared to ECG 11/18/2017 03:15:50 Incomplete right bundle-branch block now present T-wave abnormality no longer present Electronically Signed On 06-12-2019 7:28:11 EDT by Idania Salazar [place] Iam [facility] Incoming Cardiology Results From [facility] - 06/12/2019 7:29 AM EDT [facility] [employer] [facility] Test Date: 2019-06-11 Pat Name: Sully Perdomo Department: 2AED Room: 154 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1955 Requested By: [facility]ify ED Order Number: [id number] Reading MD: Idania Salazar Measurements Intervals Mayer Rate: 83 P: 67 NJ: 172 QRS: 37 QRSD: 118 T: -67 QT: 420 QTc: 494 Interpretive Statements SINUS RHYTHM INCOMPLETE RIGHT BUNDLE BRANCH BLOCK Compared to ECG 11/18/2017 03:15:50 Incomplete right bundle-branch block now present T-wave abnormality no longer present Electronically Signed On 06-12-2019 7:28:11 EDT by Idania Salazar [place], [place] APTTon 06-11-2019 aPTT Coag (Bld) [Time] 24.3 s 20 - 30.5 s M [place], [place] Comment on above: NOTE: The therapeuti c time for Heparin anticoagulation, based on Xa activity inhibition, is an APTT of 46-80 seconds. Comprehensive Metabolic Pane aleks 06-11-2019 Albumin [Mass/Vol] 4.8 g/dL 3.5 - 5 g/dL [place] ALP [Catalytic activity/Vol] 66 U/L 38 - 126 U/L [place] ALT [Catalytic activity/Vol] 31 U/L 13 - 69 U/L [place] Anion gap [Moles/Vol] 10 mmol/L [place], [place] AST [Catalytic activity/Vol] 32 U/L 15 - 46 U/L [place] Bilirubin Ql (U) 0.5 mg/dL 0.2 - 1.3 mg/dL [place] Calcium [Mass/Vol] 9.2 mg/dL 8.4 - 10. 4 mg/dL [place] Chloride [Moles/Vol] 107 mmol/L 98 - 10 7 mmol/L [place] CO2 [Moles/Vol] 23 mmol/L 22 - 30 mmol/L [place] Creatinine [Mass/Vol] 0.65 mg/dL 0.52 - 1.25 mg/dL [place] EGFR IF NonAfrican Iraqi >60.0 >60 mL/m in [place], [place] Comment on above: Source- MDRD equatio n with creatinine calibration to IDMS(NKDEP) eGFR not recommended for drug dose adjustment GFR/1.73 sq M predicted among blacks MDRD (S/P/Bld) [Vol rate/Area] mL/min/{1.73_m2} >60 mL/min [place], [place] Glucose [Mass/Vol] 113 mg/dL High 70 - 100 mg/dL [place] Interpretation and review of laboratory results Abnormal [place] Potassium [Moles/Vol] 3.7 mmol/L 3.5 - 5.1 mmol/L [place] Protein [Mass/Vol] 8.4 g/dL High 6.3 - 8.2 g/dL [place] Sodium [Moles/Vol] 140 mmol/L 135 - 145 mmol/L [place] Urea nitrogen [Mass/Vol] 12 mg/dL 7 - 20 mg/dL [place] Test Performed by [facility], [address], [place], [place] [id number] [place] [address] Hemogram (CBC) w/Auto Diffon 06-11-2019 Absolute Baso # 0.1 10*3/uL 0 - 0.2 10*3/uL [place] Absolute Neut # 10.0 10*3/uL High 1.8 - 7 10*3/uL [place] Basophils/100 WBC (Bld) 0.6 % 0 - 2 % [place] Eosinophils (Bld) [#/Vol] 0.1 10*3/uL 0 - 0.5 10*3/uL [place] Eosinophils/100 WBC (Bld) 0.8 % Low 1 - 6 % [place] Erythrocyte distribution width (RBC) [Ratio] 14.9 % High 11.5 - 14.5 % [place] Granulocytes/100 WBC (Bld) 80.0 % 40 - 80 % [place] Hematocrit (Bld) [Volume fraction] 41.0 % 35 - 47 % [place] Hemoglobin (Bld) [Mass/Vol] 14.0 g/dL 11.7 - 16 g/dL [place] Interpretation and review of laboratory results Abnormal [place] Lymphocytes (Bld) [#/Vol] 1.8 10*3/uL 1 - 4.3 10*3/uL [place] Lymphocytes/100 WBC (Bld) 14.7 % Low 20 - 40 % [place] MCH (RBC) [Entitic mass] 32.6 pg 26 - 34 pg [place] MCHC (RBC) [Mass/Vol] 34.2 % 32 - 36 % [place], [place] MCV (RBC) [Entitic vol] 95.4 fL 79 - 98 fL [place], [place] Monocytes (Bld) [#/Vol] 0.5 10*3/uL 0 - 0.8 10*3/uL [place] Monocytes/100 WBC (Bld) 3.9 % 2 - 10 % [place] Platelet mean volume (Bld) [Entitic vol] 6.1 fL Low 7.4 - 10.4 fL [place] Platelets (Bld) [#/Vol] 320 10*3/uL 140 - 440 10*3/uL [place] RBC (Bld) [#/Vol] 4.30 10*6/uL 3.8 - 5.2 10*6/uL [place] WBC (Bld) [#/Vol] 12.5 10*3/uL High 3.6 - 10.7 10*3/uL [place] Test Performed by [facility], [address] [place], [place] [id number] [place] [address] Otheron 06-11-2019 Test Performed by [facility], [address] [place], [place] [address] [place] Protime-INRon 06-11-2019 INR Coag (PPP) [Relative time] 1.0 {INR} [place] Comment on above: Recommended Anticoag ulant [...] [Time] 10.2 s 9 - 12 s [place], [place] Comment on above: . TYPE AND SCREENon 06-11-2019 Sodium [Moles/Vol] AB [place] Sodium [Moles/Vol] Positive [place] Comment on above: Test Performed by [facility], [address] [place], [place] [address] Sodium [Moles/Vol] Negative [place] Comment on above: Test Performed by [facility], [address], [place], [place] [address] Test Performed by [facility], [address] [place], [place] [address] [place] Troponin x1on 06-11-2019 Troponin I.cardiac [Mass/Vol] ng/mL 0 - 0.034 ng/mL [place] Comment on above: . Test Performed by [facility], [address] [place], [place] [address] [place] XR CHEST 1 VWon 06-11-2019 Patient Name: SULLY PERDOMO ---Diagnostic Radiology--- Exam Date/Time 06/11/2019 02:36:59 EDT Exam CR Chest 1 View Frontal Ordering Physician CHARLENE LINDSEY Accession Number [id number] CPT4 Codes 88850 () Reason For Exam pre op Report [...] No acute process. Report Dictated on Workstation: [id number] --- Final --- Dictating Physician: DO RAO ALFRED Signed Date and Time: 06/11/2019 2:54 am Signed by: DO RAO ALFRED Transcribed Date and Time: 06/11/2019 2:56 [place] Iam, [facility] Incoming Radiology Results From [facility] - 06/11/2019 2:56 AM EDT Patient Name: SULLY PERDOMO ---Diagnostic Radiology--- Exam Date/Time 06/11/2019 02:36:59 EDT Exam CR Chest 1 View Frontal Ordering Physician CHARLENE LINDSEY Accession Number [id number] CPT4 Codes 58897 () Reason For Exam pre op Report [...] No acute process. Report Dictated on Workstation: [id number] --- Final --- Dictating Physician: DO RAO ALFRED Signed Date and Time: 06/11/2019 2:54 am Signed by: DO RAO ALFRED Transcribed Date and Time: 06/11/2019 2:56 [place] XR FEMUR RIGHT (MIN 2 VIEWS) on 06-11-2019 Iam, [facility] Incoming Radiology Results From [facility] - 06/11/2019 3:34 AM EDT Patient Name: SULLY PERDOMO ---Diagnostic Radiology--- Exam Date/Time 06/11/2019 02:59:53 EDT Exam CR Femur 2+ Views Right n Ordering Physician DO MOY DAVID J Accession Number [id number] CPT4 Codes 77265 () Reason For Exam Right hip pain [...] ALFRED Transcribed Date and Time: 06/11/2019 3:34 [place] Patient Name: SULLY PERDOMO ---Diagnostic Radiology--- Exam Date/Time 06/11/2019 02:59:53 EDT Exam CR Femur 2+ Views Right n Ordering Physician DO MOY DAVID J Accession Number [id number] CPT4 Codes 13347 () Reason For Exam Right hip pain [...] ALFRED Transcribed Date and Time: 06/11/2019 3:34 [place] XR HIP RIGHT (2-3 VIEWS)on 1 [facility], [facility] Incoming Radiology Results From [facility] - 06/11/2019 1:24 AM EDT Patient Name: SULLY PERDOMO ---Diagnostic Radiology--- Exam Date/Time 06/11/2019 01:16:17 EDT Exam CR Hip w/ Pelvis 2 or 3 Views Right n Ordering Physician DO MOY DAVID J Accession Number [id number] CPT4 Codes 15246 () Reason For Exam Fall right hip [...] the right hip.. Report Dictated on Workstation: [id number] --- Final --- Dictating Physician: DO RAO ALFRED Signed Date and Time: 06/11/2019 1:23 am Signed by: DO RAO ALFRED Transcribed Date and Time: 06/11/2019 1:24 [place] Patient Name: SULLY PERDOMO ---Diagnostic Radiology--- Exam Date/Time 06/11/2019 01:16:17 EDT Exam CR Hip w/ Pelvis 2 or 3 Views Right n Ordering Physician DO MOY DAVID J Accession Number [id number] CPT4 Codes 83878 () Reason For Exam Fall right hip [...] the right hip.. Report Dictated on Workstation: [email or web address] --- Final --- Dictating Physician: DO RAO ALFRED Signed Date and Time: 06/11/2019 1:23 am Signed by: DO RAO ALFRED Transcribed Date and Time: 06/11/2019 1:24 [place] Diagnostic Catherizationon 0 06-01-2019 Diagnostic Catherization Patient Name: SULLY MERCADO [facility] Specialist Exam Date/Time 06/01/2019 07:40:02 EDT Exam Diagnostic Catherization Ordering Physician MD SHULTZ WILLIAM Accession Number [id number] Report [facility] CARDIOVASCULAR [place] -------- CARDIAC CATHETERIZATION Patient: Sully Perdomo Procedure [...] + +LV pressure s/d, ed +141/15, 23, dP/cw=189 mm Hg/s+ + -----+ + +Arterial pressure s/d (m)+137/72 (101) + + -----+ + Prepared and electronically signed by Jorge L Shultz MD 06/01/2019 13:06 Final Dictated: 06/01/2019 1:06 pm Dictating Physician: MD SHULTZ WILLIAM Signed Date and Time: 06/01/2019 1:06 pm Signed by: MD SHULTZ WILLIAM [facility] [place] Cardiac Stress Test Nucle ar Imagingon 05-23-2019 Nuclear Stress Myocardial Perfusion Study Dereck Protocol Gated SPECT Patient: Sully Perdomo Height: (67 in) Weight: (158 lb) : 1955 Age: 63 Gender: F Study Date: 05/23/2019 Accession#: Patient Room #: *ORDERING PHYSICIAN: * Jeremiah Martínez *SUPERVISING PHYSICIAN: * Cayetano Esteban *RN: Kaila Dior *NUCLEAR TECH: * Laz Mendoza *READING PHYSICIAN: Trina Cagle MD -------- Indications: - Abnormal EKG (R94.31). [...] dyspnea and due to moderate fatigue. A tool grinder operator was used while patient was on the [...] peak heart rate [place] blood pressure [place] [address] mm Hg/min. Stress testing did not produce [...] mCi + + + +---- ---+ +Date +05/23/201905/23/2019 + + + +---- ---+ +Injection time [...] signed by Trina Mays MD 05/23/2019 15:19 [place], [place] Sebastián Vitale Incoming Cardiology Results From [facility] - 05/23/2019 3:19 PM EDT Nuclear Stress [...] dyspnea and due to moderate fatigue. A tool grinder operator was used while patient was on the [...] peak heart rate [place] blood [place] [address] mm Hg/min. Stress testing did not produce [...] signed by Trina Mays MD 05/23/2019 15:19 [place] Vital Signs Date Time Vital Sign Value Performing Clinician Facility 05-17-2025 23:37-0400 Diastolic blood pressure 67 mm[Hg] [facility] Work Phone: [facility] 05-17-2025 23:37-0400 Heart rate 84 /min [facility] Work Phone: [facility] 05-17-2025 23:37-0400 Respiratory rate 21 /min [facility] Work Phone: [facility] 05-17-2025 23:37-0400 SaO2% (BldA) [Mass fraction] 97 % [facility] Work Phone: [facility] 05-17-2025 23:37-0400 Systolic blood pressure 133 mm[Hg] [facility] Work Phone: [facility] 05-17-2025 22:08-0400 Body height 165.1 cm [facility] Work Phone: [facility] 05-17-2025 22:08-0400 Body mass index (BMI) [Ratio] 18.47 kg/m2 [facility] Work Phone: [facility] 05-17-2025 22:08-0400 Body temperature 98.6 [degF] [facility] Work Phone: [facility] [employer] 05-17-2025 22:08-0400 Body weight 50.35 kg Jovan Nesheim DO Work Phone: [facility] [employer] 05-14-2025 01:51-0400 Body height 165.1 cm Harpal Cuevas MD Work Phone: [facility] [employer] 05-14-2025 01:51-0400 Body mass index (BMI) [Ratio] 18.47 kg/m2 Harpal Cuevas MD Work Phone: [facility] [employer] 05-14-2025 01:51-0400 Body temperature 98.6 [degF] Harpal Cuevas MD Work Phone: [facility] [employer] 05-14-2025 01:51-0400 Body weight 50.35 kg Harpal Cuevas MD Work Phone: [facility] [employer] 05-14-2025 01:51-0400 Diastolic blood pressure 64 mm[Hg] Harpal Cuevas MD Work Phone: [facility] [employer] 05-14-2025 01:51-0400 Heart rate 85 /min Harpal Cuevas MD Work Phone: [facility] [employer] 05-14-2025 01:51-0400 Respiratory rate 16 /min Harpal Cuevas MD Work Phone: [facility] [employer] 05-14-2025 01:51-0400 SaO2% (BldA) [Mass fraction] 94 % Harpal Cuevas MD Work Phone: [facility] [employer] 05-14-2025 01:51-0400 Systolic blood pressure 139 mm[Hg] Harpal Cuevas MD Work Phone: [facility] [employer] 05-12-2025 08:14-0400 Body height 163 cm Jorge Abel MD Work Phone: [facility] 05-12-2025 08:14-0400 Body height 162.56 cm Jorge Abel MD Work Phone: [facility] 05-12-2025 08:14-0400 Body mass index (BMI) [Ratio] 19.12 kg/m2 Jorge Abel MD Work Phone: [facility] 05-12-2025 08:14-0400 Body weight 50 kg Jorge Abel MD Work Phone: [facility] 05-12-2025 08:14-0400 Body weight 50.35 kg Jorge Abel MD Work Phone: [facility] 05-12-2025 08:14-0400 BP SITE #1 Jorge Abel MD Work Phone: [facility] 05-12-2025 08:14-0400 BP SITE #2 Jorge Abel MD Work Phone: [facility] 05-12-2025 08:14-0400 Diastolic blood pressure 77 mm[Hg] Jorge Abel MD Work Phone: [facility] 05-12-2025 08:14-0400 Diastolic blood pressure 83 mm[Hg] Jorge Abel MD Work Phone: [facility] 05-12-2025 08:14-0400 Heart rate 74 /min Jorge Abel MD Work Phone: [facility] 05-12-2025 08:14-0400 HGHTCHNVIS Jorge Abel MD Work Phone: [facility] 05-12-2025 08:14-0400 Systolic blood pressure 161 mm[Hg] Jorge Abel MD Work Phone: [facility] 05-12-2025 08:14-0400 Systolic blood pressure 147 mm[Hg] Jorge Abel MD Work Phone: [facility] 05-12-2025 08:14-0400 STEPHANIE Abel MD Work Phone: [facility] 03-23-2025 08:45-0400 Body height 167.[address] Jeremiah Martínez MD [facility] 03-23-2025 08:45-0400 Body mass index (BMI) [Ratio] 18.1 kg/m2 Dr. Jeremiah Martínez MD [facility] 03-23-2025 08:45-0400 Body temperature 98.4 [degF] Dr. Jeremiah Martínez MD [facility] 03-23-2025 08:45-0400 Body weight 50.[address] Jeremiah Martínez MD [facility] 03-23-2025 08:45-0400 Diastolic blood pressure 83 mm[Hg] Dr. Jeermiah Martínez MD [facility] 03-23-2025 08:45-0400 Heart rate 84 /min Dr. Jeremiah Martínez MD [facility] 03-23-2025 08:45-0400 Inhaled oxygen flow rate 2 L/min Dr. Jeremiah Martínez MD [facility] 03-23-2025 08:45-0400 Respiratory rate 18 /min Dr. Jeremiah Martínez MD [facility] 03-23-2025 08:45-0400 SaO2% (BldA) [Mass fraction] 97 % Dr. Jeremiah Martínez MD [facility] 03-23-2025 08:45-0400 Systolic blood pressure 144 mm[Hg] Dr. Jeremiah Martínez MD [facility] 11-08-2024 08:52-0500 Body height 167.[address] Jeremiah Martínez MD [facility] 11-08-2024 08:52-0500 Body mass index (BMI) [Ratio] 18.7 kg/m2 Dr. Jeremiah Martínez MD [facility] 11-08-2024 08:52-0500 Body temperature 98.5 [degF] Dr. Jeremiah Martínez MD [facility] 11-08-2024 08:52-0500 Body weight 52.[address] Jeremiah Martínez MD [facility] 11-08-2024 08:52-0500 Diastolic blood pressure 75 mm[Hg] Dr. Jeremiah Martínez MD [facility] 11-08-2024 08:52-0500 Heart rate 85 /min Dr. Jeremiah Martínez MD [facility] 11-08-2024 08:52-0500 Inhaled oxygen flow rate 2 L/min Dr. Jeremiah Martínez MD [facility] 11-08-2024 08:52-0500 Respiratory rate 20 /min Dr. Jeremiah Martínez MD [facility] 11-08-2024 08:52-0500 SaO2% (BldA) [Mass fraction] 96 % Dr. Jeremiah Martínez MD [facility] 11-08-2024 08:52-0500 Systolic blood pressure 136 mm[Hg] Dr. Jeremiah Martínez MD [facility] 10-14-2024 11:30-0500 Diastolic blood pressure 76 mm[Hg] Harpal Cuevas MD Work Phone: [facility] [place] [facility] 10-14-2024 11:30-0500 Heart rate 74 /min Harpal Cuevas MD Work Phone: [facility] [place] [facility] 10-14-2024 11:30-0500 Respiratory rate 16 /min Harpal Cuevas MD Work Phone: [facility] [place] [facility] 10-14-2024 11:30-0500 SaO2% (BldA) [Mass fraction] 95 % Harpal Cuevas MD Work Phone: [facility] [place] [facility] 10-14-2024 11:30-0500 Systolic blood pressure 142 mm[Hg] Harpal Cuevas MD Work Phone: [facility] [place] [facility] 10-14-2024 09:16-0500 Body height 165.1 cm Harpal Cuevas MD Work Phone: [facility] [place] [facility] 10-14-2024 09:16-0500 Body mass index (BMI) [Ratio] 19.64 kg/m2 Harpal Cuevas MD Work Phone: [facility] [place] [facility] 10-14-2024 09:16-0500 Body temperature 98.29 [degF] Harpal Cuevas MD Work Phone: [facility] [place] [facility] 10-14-2024 09:16-0500 Body weight 53.52 kg Harpal Cuevas MD Work Phone: [facility] [place] [facility] 09-30-2024 07:54-0500 Body mass index (BMI) [Ratio] 19.4 kg/m2 Dr. Jeremiah Martínez MD [facility] 09-30-2024 07:54-0500 Body temperature 97.7 [degF] Dr. Jeremiah Martínez MD [facility] 09-30-2024 07:54-0500 Body weight 54.[address] Jeremiah Martínez MD [facility] 09-30-2024 07:54-0500 Diastolic blood pressure 79 mm[Hg] Dr. Jeremiah Martínez MD [facility] 09-30-2024 07:54-0500 Heart rate 78 /min Dr. Jeremiah Martínez MD [facility] 09-30-2024 07:54-0500 Inhaled oxygen flow rate 2 L/min Dr. Jeremiah Martínez MD [facility] 09-30-2024 07:54-0500 Respiratory rate 18 /min Dr. Jeremiah Martínez MD [facility] 09-30-2024 07:54-0500 SaO2% (BldA) [Mass fraction] 93 % Dr. Jeremiah Martínez MD [facility] 09-30-2024 07:54-0500 Systolic blood pressure 156 mm[Hg] Dr. Jeremiah Martínez MD [facility] 08-30-2024 07:46-0500 Body mass index (BMI) [Ratio] 19.3 kg/m2 Dr. Jeremiah Martínez MD [facility] 08-30-2024 07:46-0500 Body temperature 97.6 [degF] Dr. Jeremiah Martínez MD [facility] 08-30-2024 07:46-0500 Body weight 54.[address] Jeremiah Martínez MD [facility] 08-30-2024 07:46-0500 Diastolic blood pressure 77 mm[Hg] Dr. Jeremiah Martínez MD [facility] 08-30-2024 07:46-0500 Heart rate 76 /min Dr. Jeremiah Martínez MD [facility] 08-30-2024 07:46-0500 Inhaled oxygen flow rate 2 L/min Dr. Jeremiah Martínez MD [facility] 08-30-2024 07:46-0500 Respiratory rate 18 /min Dr. Jeremiah Martínez MD [facility] 08-30-2024 07:46-0500 SaO2% (BldA) [Mass fraction] 95 % Dr. Jeremiah Martínez MD [facility] 08-30-2024 07:46-0500 Systolic blood pressure 166 mm[Hg] Dr. Jeremiah Martínez MD [facility] 01-21-2024 09:22-0400 Body height 167.6 cm Nery Ruiz MD Work Phone: [facility] [place] [facility] 01-21-2024 09:22-0400 Body mass index (BMI) [Ratio] 19.05 kg/m2 Nery Ruiz MD Work Phone: [facility] [place] [facility] 01-21-2024 09:22-0400 Body weight 53.52 kg Nery Ruiz MD Work Phone: [facility] [place] [facility] 12-07-2023 07:47-0400 Body height 168.[address] Jeremiah Martínez Work Phone: [facility] 12-07-2023 07:47-0400 Body mass index (BMI) [Ratio] 19.1 kg/m2 Dr. Jeremiah Martínez Work Phone: [facility] 12-07-2023 07:47-0400 Body temperature 97.4 [degF] Dr. Jeremiah Martínez Work Phone: [facility] 12-07-2023 07:47-0400 Body weight 54.[address] Jeremiah Martínez Work Phone: [facility] 12-07-2023 07:47-0400 Diastolic blood pressure 73 mm[Hg] Dr. Jeremiah Martínez Work Phone: [facility] 12-07-2023 07:47-0400 Heart rate 69 /min Dr. Jeremiah Martínez Work Phone: [facility] 12-07-2023 07:47-0400 Respiratory rate 18 /min Dr. Jeremiah Martínez Work Phone: [facility] 12-07-2023 07:47-0400 SaO2% (BldA) [Mass fraction] 96 % Dr. Jeremiah Martínez Work Phone: [facility] 12-07-2023 07:47-0400 Systolic blood pressure 126 mm[Hg] Dr. Jeremiah Martínez Work Phone: [facility] 04-16-2023 09:17-0400 Body height 167.6 cm Ellen Kalka PA-C Work Phone: [facility] 04-16-2023 09:17-0400 Body weight 55.79 kg Ellen Kalka PA-C Work Phone: [facility] 04-16-2023 09:17-0400 Diastolic blood pressure 72 mm[Hg] Ellen Kalka PA-C Work Phone: [facility] 04-16-2023 09:17-0400 Heart rate 82 /min Ellen Kalka PA-C Work Phone: [facility] 04-16-2023 09:17-0400 Systolic blood pressure 130 mm[Hg] Ellen Kalka PA-C Work Phone: [facility] 12-01-2021 10:00-0400 Body height 167.6 cm Anna Ibarra MD Work Phone: [facility] 12-01-2021 10:00-0400 Body mass index (BMI) [Ratio] 25.02 kg/m2 Anna Ibarra MD Work Phone: [facility] 12-01-2021 10:00-0400 Body temperature 99.5 [degF] Anna Ibarra MD Work Phone: [facility] 12-01-2021 10:00-0400 Body weight 70.31 kg Anna Ibarra MD Work Phone: [facility] 12-01-2021 10:00-0400 Diastolic blood pressure 76 mm[Hg] Anna Ibarra MD Work Phone: [facility] 12-01-2021 10:00-0400 Heart rate 84 /min Anna Ibarra MD Work Phone: [facility] 12-01-2021 10:00-0400 Respiratory rate 16 /min Anna [facility]barra MD [facility] 12-01-2021 10:00-0400 SaO2% (BldA) [Mass fraction] 96 % Anna Ibarra MD [facility] 12-01-2021 10:00-0400 Systolic blood pressure 151 mm[Hg] Anna Ibarra MD [facility] Phone: [facility] 01-18-2021 03:36-0400 Diastolic blood pressure 49 mm[Hg] Anna Maurer MD [facility] Phone: [facility] Work Phone: 01-18-2021 03:36-0400 Heart rate 72 /min Anna Maurer MD Work Phone: [facility] Work Phone: 01-18-2021 03:36-0400 SaO2% (BldA) [Mass fraction] 93 % Anna Maurer MD [facility] Work Phone: 01-18-2021 03:36-0400 Systolic blood pressure 107 mm[Hg] Anna Maurer MD Work Phone: [facility] Work Phone: 01-18-2021 00:28-0400 Body height 167.6 cm Anna Maurer MD Work Phone: [facility] Work Phone: 01-18-2021 00:28-0400 Body mass index (BMI) [Ratio] 27.12 kg/m2 Anna Maurer MD Work Phone: [facility] Work Phone: 01-18-2021 00:28-0400 Body temperature 98.1 [degF] Anna Maurer MD Work Phone: [facility] Work Phone: 01-18-2021 00:28-0400 Body weight 76.2 kg Anna Maurer MD [facility] Phone: [facility] Work Phone: 01-18-2021 00:28-0400 Respiratory rate 16 /min Anna Maurer MD Work Phone: [facility] Work Phone: 06-24-2020 09:09-0400 BP Diastolic 72 mm[Hg] [facility] [place] 06-24-2020 09:09-0400 BP Systolic 133 mm[Hg] [facility] [place] 06-24-2020 09:09-0400 Pulse (Heart Rate) 77 /min [facility] 06-24-2020 09:09-0400 Pulse Oximetry 93 % [facility] [place] 06-24-2020 09:09-0400 Respiratory Rate 14 /min [facility] 06-24-2020 08:01-0400 BMI (Body Mass Index) 27.28 kg/m2 [place], [place] 06-24-2020 08:01-0400 Body Temperature 97.59 [degF] [facility] 06-24-2020 08:01-0400 Body weight 76.66 kg [place], [place] 06-24-2020 08:01-0400 Height 167.[address] [facility] [place] 06-14-2019 07:39-0400 Body Temperature 98.49 [degF] [facility] 06-14-2019 07:39-0400 BP Diastolic 80 mm[Hg] [facility] [place] 06-14-2019 07:39-0400 BP Systolic 119 mm[Hg] [facility] [place] 06-14-2019 07:39-0400 Pulse (Heart Rate) 69 /min [facility] 06-14-2019 07:39-0400 Pulse Oximetry 95 % [facility] [place] 06-14-2019 07:39-0400 Respiratory Rate 18 /min [facility] 06-11-2019 04:15-0400 BMI (Body Mass Index) 26.47 kg/m2 [place] 06-11-2019 04:15-0400 Body weight 76.66 kg Anna [facility] , [place] 06-11-2019 04:14-0400 Height 170.2 cm [facility] , [place] 05-23-2019 08:12-0400 BMI (Body Mass Index) 24.75 kg/m2 Jeremiah Martínez [facility], [place] 05-23-2019 08:12-0400 Body weight 71.67 kg Jeremiah [facility] , [place] 05-23-2019 08:12-0400 Height 170.2 cm Jeremiah [facility] , [place] Encounters Encounter Date Encounter Type Care Provider Facility Start: 05-17-2025 End: 05-17-2025 Emergency department patient visit Jovan Mae DO Work Phone: [facility] ED Comment on above: Rib pain on left brianda e (Primary Dx) Start: 05-14-2025 End: 05-15-2025 ambulatory [facility] Start: 05-14-2025 End: 05-14-2025 Subsequent hospital visit by physician Vicki Landrum [facility] Stress Start: 05-14-2025 End: 05-14-2025 Emergency department patient visit Harpal Cuevas MD Work Phone: [facility] ED Comment on above: Head injury, initial encounter (Primary Dx); Fall, initial encounter; Contusion of rib on left side, initial encounter Start: 05-12-2025 In-person encounter Jorge kelly MD Work Phone: [facility] Work Phone: Start: 05-02-2025 End: 05-02-2025 Telephone encounter Bo Aguillon MD Work Phone: [facility] Comment on above: Appointment ([employer] incoming referral) Start: 04-28-2025 End: 04-28-2025 Subsequent hospital visit by physician Jeremiah Martínez MD Work Phone: [facility] MRI Comment on above: Cervicalgia Start: 04-28-2025 End: 04-28-2025 ambulatory [facility] Start: 04-17-2025 End: 04-17-2025 Telephone encounter Gopi Bess MD Work Phone: [facility] 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[place] Start: 04-17-2025 End: 04-17-2025 ambulatory [facility] Start: 04-07-2025 End: 04-07-2025 Subsequent hospital visit by physician Jeremiah Martínez MD Work Phone: [facility] Neuro Comment on above: Polyneuropathy, unsp ecified Start: 04-07-2025 End: 04-07-2025 ambulatory [facility] Start: 03-28-2025 End: 06-27-2025 Transcribe Orders Jeremiah Martínez MD Work Phone: [facility] Central Scheduling Comment on above: Polyneuropathy, unsp ecified (Primary Dx) Cervicalgia (Primary Dx) Start: 03-23-2025 End: 03-23-2025 Patient encounter procedure Ana Gilman NP-C -[facility] Work Phone: Start: 03-23-2025 End: 03-23-[address] Jeremiah Martínez MD -[facility] Start: 03-17-2025 End: 03-17-[address] Jeremiah Martínez MD -Cat Scan [facility] Start: 03-17-2025 End: 03-17-2025 Patient encounter procedure Ana Gilman HUMAN RESOURCES HR GENERALIST-C -Cat Scan [facility] Work Phone: Start: 03-17-2025 End: 03-17-2025 ambulatory Ana Gilman HUMAN RESOURCES HR GENERALIST Facility:[facility] Start: 03-15-2025 End: 04-06-2025 Telephone encounter Gopi Bess MD Work Phone: Neurology Comment on above: Patient Update Start: 03-14-2025 End: 03-14-2025 Telephone encounter Jeremiah Martínez MD Work Phone: NOC Comment on above: Opened In Error Start: 03-07-2025 End: 03-07-[address] Jeremiah Martínez MD -Pulmonary Services/Neurology Start: 03-07-2025 End: 03-07-2025 Patient encounter procedure Ana Gilman HUMAN RESOURCES HR GENERALIST-C -Pulmonary Services/Neurology Work Phone: Start: 03-07-2025 End: 03-07-2025 ambulatory Ana Gilman HUMAN RESOURCES HR GENERALIST Facility:[facility] Start: 03-04-2025 End: 03-04-2025 ambulatory Imelda Jackson RN [facility] Clinical Communication Start: 03-04-2025 End: 03-04-2025 Patient encounter procedure Imelda Jackson RN [facility] Clinical Communication Start: 03-03-2025 End: 03-03-2025 Subsequent hospital visit by physician Jeremiah Martínez MD Work Phone: [facility] Radiology Comment on above: Cervicalgia; Pain in unspecified shoulder Start: 03-03-2025 End: 06-02-2025 ambulatory [facility] Comment on above: Cervicalgia (Primary Dx); Pain in unspecified shoulder Start: 02-18-2025 End: 02-20-2025 Derrick Ruiz MD Work Phone: [facility] [place] Start: 02-13-2025 End: 02-13-2025 Telephone encounter Gopi Bess MD Work Phone: [facility] Start: 02-10-2025 End: 02-10-[address] 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 Jeremiah Martínez MD [facility] Work Phone: Start: 12-19-2024 End: 12-19-2024 Patient encounter procedure Ana Gilman NP-C -Radiology, [facility] Work Phone: Start: 12-19-2024 End: 12-19-2024 ambulatory Ana Gilman NP Facility:[facility] Start: 12-15-2024 End: 03-17-2025 Telephone encounter Neurology Provider [facility] Comment on above: Referral Information (Please schedule patient - referral from Dr. Diaz office); Future Appointment (New Patient [place] Any) Start: 12-08-2024 End: 12-08-2024 Subsequent hospital visit by physician Sergio Meneses MD Work Phone: [facility] CT Comment on above: Other acute recurren t sinusitis Dizziness and giddin ess Start: 12-08-2024 End: 12-08-2024 ambulatory SERGIO MENESES [facility] Start: 11-08-2024 End: 11-08-2024 Patient encounter procedure Ana Gilman NP-C [facility] Work Phone: Start: 11-08-2024 End: 11-08-2024 ambulatory Jeremiah Martínez Facility:[facility] Start: 11-04-2024 End: 11-04-2024 ambulatory JEREMIAH MARTÍNEZ [facility] Start: 11-04-2024 End: 02-03-2025 Subsequent hospital visit by physician Jeremiah Martínez MD Work Phone: [facility] Radiology Comment on above: Pneumothorax, unspec ified; Fracture of one rib, unspecified side, initial encounter for closed fracture Pneumothorax, unspec ified (Primary Dx); Fracture of one rib, unspecified side, initial encounter for closed fracture Start: 10-26-2024 ambulatory Ana Gilman HUM[employer] RESOURCES HR GENERALIST Fac ility:[facility] Start: 10-18-2024 End: 10-18-2024 Patient encounter procedure Ana Gilman NP-C -[facility] Start: 10-18-2024 End: 10-18-2024 ambulatory Ana Gilman HUMAN RESOURCES HR GENERALIST Facility:[facility] Start: 10-14-2024 End: 10-14-2024 Emergency department patient visit Harpal Cuevas MD Work Phone: [facility] ED Comment on above: Inflammatory disorde r of upper respiratory tract (Primary Dx) Start: 09-30-2024 End: 09-30-2024 Patient encounter procedure Ana Gilman NP-C [facility] Work Phone: Start: 09-30-2024 End: 09-30-2024 ambulatory Ana Gilman NP Facility:[facility] Start: 09-23-2024 Non-patient / Non-visit Dr. Vanessa rodrigues MD -[facility] Start: 09-23-2024 ambulatory Vanessa Chowdhury Facility:[facility] Start: 09-23-2024 End: 09-23-2024 Patient encounter procedure Ana Gilman NP-C -Cat Scan, [facility] Work Phone: Start: 09-23-2024 End: 09-23-2024 ambulatory Ana Gilman HUMAN RESOURCES HR GENERALIST Facility:[facility] Start: 08-30-2024 End: 08-30-2024 Patient encounter procedure Ana Gilman NP-C [facility] Work Phone: Start: 08-30-2024 End: 08-30-2024 ambulatory Ana Gilman HUMAN RESOURCES HR GENERALIST Facility:[facility] Start: 07-08-2024 ambulatory Ana Gilman HUMAN RESOURCES HR GENERALIST Fac ility:[facility] Start: 07-04-2024 End: 07-04-2024 ambulatory Ana Gilman HUMAN RESOURCES HR GENERALIST Facility:[facility] Start: 06-21-2024 End: 09-20-2024 Transcribe Orders Jeremiah Martínez MD Work Phone: [facility] Central Scheduling Comment on above: Shortness of breath (Primary Dx); Weakness Start: 06-07-2024 End: 06-07-2024 ambulatory Ana Gilman HUMAN RESOURCES HR GENERALIST Facility:[facility] Start: 05-23-2024 End: 08-22-2024 Subsequent hospital visit by physician Jeremiah Martínez MD Work Phone: [facility] Radiology Comment on above: Otitis media, unspec ified, left ear Otitis media, unspec ified, left ear (Primary Dx) Start: 05-23-2024 End: 05-23-2024 ambulatory JEREMIAH MARTÍNEZ [facility] Start: 05-13-2024 End: 05-13-2024 Subsequent hospital visit by physician Jeremiah Martínez MD Work Phone: [facility] MRI Comment on above: Abnormal results of function studies of other organs and systems Start: 05-05-2024 End: 08-04-2024 Transcribe Orders Jeremiah Martínez MD Work Phone: [facility] Central Scheduling Comment on above: Abnormal results of function studies of other organs and systems (Primary Dx) Start: 03-15-2024 Refill Ellen Barakat PA-C Work Phone: [facility] [place] Comment on above: Refill Request Start: 01-21-2024 End: 01-21-2024 Office outpatient new 30 minutes Nery Ruiz MD Work Phone: [facility] ENT Comment on above: Chronic pansinusitis (Primary Dx) Start: 01-13-2024 Telephone encounter Jeremiah jane MD Work Phone: [facility] Clinical Communication Comment on above: OTher (Inform Provid er ) Start: 12-29-2023 Telephone encounter [facility] Start: 12-22-2023 End: 12-22-[address] Jeremiah Martínez Work Phone: [facility] Work Phone: Start: 12-22-2023 End: 12-22-[address] Jeremiah Martínez Work Phone: [facility] Oncology Start: 12-12-2023 Refill Ellen Barakat PA-C Work Phone: [facility] [place] Comment on above: Refill Request Start: 12-07-2023 End: 12-07-[address] Jeremiah Martínez Work Phone: [facility] Pulmonary Medicine Work Phone: Start: 11-24-2023 End: 02-23-2024 Subsequent hospital visit by physician Jeremiah Martínez MD Work Phone: [facility] Radiology Comment on above: Pain in right knee Pain in right knee ( Primary Dx) Start: 11-23-2023 End: 11-23-2023 Subsequent hospital visit by physician Jeremiah Martínez MD Work Phone: [facility] Radiology Comment on above: Chronic sinusitis, u nspecified Chronic sinusitis, u nspecified (Primary Dx) Start: 11-20-2023 End: 11-20-2023 ambulatory [facility] Work Phone: Start: 11-20-2023 End: 11-20-2023 Patient encounter procedure [facility]-Cat Scan, [facility] Work Phone: Start: 11-09-2023 End: 11-09-2023 Subsequent hospital visit by physician Jeremiah Martínez MD Work Phone: [facility] MRI Comment on above: Chronic sinusitis, u nspecified Start: 11-06-2023 Transcribe Orders Jeremiah clemens MD Work Phone: [facility] Central Scheduling Comment on above: Chronic sinusitis, u nspecified (Primary Dx) Start: 10-23-2023 End: 10-23-2023 ambulatory [facility] Work Phone: Start: 10-23-2023 End: 10-23-2023 Patient encounter procedure [facility]-Laboratory Work Phone: Start: 09-11-2023 ambulatory [facility] Start: 09-11-2023 Patient encounter procedure Purnima Crane Clinical Communication Start: 07-05-2023 Refill Ellen Barakat PA-C Work Phone: [facility] Comment on above: Refill Request Start: 07-02-2023 End: 07-02-2023 Subsequent hospital visit by physician Jeremiah Martínez MD Work Phone: [facility] Non-Invasive Cardiology Comment on above: Canceled (Patient: R efused) Start: 06-29-2023 Telephone encounter Jeremiah jane MD Work Phone: [facility] Central Scheduling Comment on above: Scheduling Emphysema, unspecifi ed (HCC) (Primary Dx) Start: 06-24-2023 End: 06-24-2023 Subsequent hospital visit by physician Jeremiah Martínez MD Work Phone: [facility] Radiology Comment on above: Emphysema, unspecifi ed (HCC) Emphysema, unspecifi ed (HCC) (Primary Dx) Start: 06-11-2023 Chart abstracting Jeremiah jane MD Work Phone: [facility] Comment on above: Polysomnogram Start: 05-18-2023 ambulatory Lupillo Bowen MD Work Phone: Ambulatory Surgery Start: 05-07-2023 ambulatory Rosendo Coon MD Work Phone: Ambulatory Surgery Start: 04-16-2023 End: 04-16-2023 Patient encounter procedure Ellen Barakat PA-C Work Phone: [facility] Comment on above: Altered bowel habits (Primary Dx); Postprandial epigastric pain; Abnormal weight loss Start: 04-10-2023 End: 04-10-2023 Subsequent hospital visit by physician [facility] Us Exam Room 1 [facility] US Comment on above: Canceled (Patient: E mergency) Start: 04-07-2023 Transcribe Orders Jeremiah haywood MD Work Phone: [facility] Central Scheduling Start: 03-18-2023 End: 03-18-2023 Subsequent hospital visit by physician Jeremiah Martínez MD Work Phone: [facility] Radiology Comment on above: Localized swelling, mass and lump, left lower limb Localized swelling, mass and lump, left lower limb (Primary Dx) Start: 12-16-2022 End: 12-16-2022 Subsequent hospital visit by physician Phillip Tobar MD Work Phone: [facility] Comment on above: Acute pain of right knee Start: 12-16-2022 End: 12-16-2022 Office outpatient new 30 minutes Phillip Tobar MD Work Phone: [facility]opedic [facility] Medicine Comment on above: Acute pain of right knee (Primary Dx); Quadriceps weakness; Tendinopathy of right gluteus medius Start: 11-27-2022 Transcribe Orders Jeremiah clemens MD Work Phone: [facility] Laboratory Comment on above: Hypoxemia (Primary D x) Start: 10-28-2022 End: 10-28-2022 ambulatory [facility] Work Phone: Start: 10-28-2022 End: 10-28-2022 Patient encounter procedure [facility]-Cat Scan, [facility] Start: 06-11-2022 [facility] Start: 05-29-2022 ambulatory Lizzie Ferrari RN NURSE O N CALL Comment on above: Shoulder Injury Start: 12-01-2021 End: 12-01-2021 Emergency department patient visit Jeremiah Cristopher [facility] Start: 12-01-2021 End: 12-01-2021 Emergency department patient visit Anna Ibarra MD Work Phone: [facility] Comment on above: Right wrist fracture , closed, initial encounter (Primary Dx) Start: 09-20-2021 ambulatory UNKNOWN PROVIDER [facility] Start: 09-13-2021 ambulatory UNKNOWN PROVIDER [facility] Start: 07-12-[address]ínez [facility] System Start: 07-12-2021 End: 07-12-2021 Subsequent hospital visit by physician Jeremiah Martínez MD Work Phone: [facility] Start: 01-18-2021 End: 01-18-2021 Emergency department patient visit Anna Maurer MD Work Phone: [facility] ED Comment on above: Injury of head, init ial encounter (Primary Dx); Fall, initial encounter; Laceration of scalp, initial encounter; Acute alcoholic intoxication without complication (HCC) Start: 10-04-2020 End: 10-04-2020 Subsequent hospital visit by physician Jeremiah Martínez Work Phone: [facility] Start: 09-14-2020 End: 09-14-2020 Subsequent hospital visit by physician Annie Cohen Cat Scan Rm [address] Comment on above: Arrived Start: 08-17-2020 End: 08-17-2020 Subsequent hospital visit by physician Jeremiah Martínez Work Phone: [facility] Start: 06-24-2020 End: 06-24-2020 Emergency department patient visit [facility]irre Panda [facility] Comment on above: Injury of head, init ial encounter (Primary Dx); Closed fracture of nasal bone, initial encounter; Strain of neck muscle, initial encounter Start: 11-08-2019 End: 11-08-2019 Subsequent hospital visit by physician Jeremiah Martínez Work Phone: [facility] Start: 2019 End: 2019 Subsequent hospital visit by physician Nilesh Garces Work Phone: [facility] Comment on above: Closed displaced int ertrochanteric fracture of right femur with routine healing; Right hip pain Start: 06-22-2019 End: 06-22-2019 Subsequent hospital visit by physician Nilesh Garces Work Phone: [facility] Start: 06-11-2019 End: 06-14-2019 Evaluation and management of inpatient Anna Moy Work Phone: [facility] SUR[facility] Comment on above: Closed 2-part intert rochanteric fracture of right femur, initial encounter ([facility]) (Primary Dx); Right hip pain; Fall from ground level; Abnormal nuclear stress test; Closed 2-part intertrochanteric fracture of proximal end of right femur, initial encounter ([facility]) Start: 05-23-2019 End: 05-23-2019 Subsequent hospital visit by physician Jeremiah Martínez Work Phone: [facility] [facility] Comment on above: Arrived Start: 05-16-2019 End: 05-16-2019 Subsequent hospital visit by physician Jeremiah Martínez Work Phone: [employer] [facility] Comment on above: Arrived Start: 05-03-2019 End: 05-03-2019 Subsequent hospital visit by physician Jeremiah Martínez Work Phone: [employer] Radiology Procedures Date Procedure Procedure Detail Performing Clinician Start: 05-17-2025 Radiologic exam ches t single view Jovan G Nesheim DO Work Phone: Start: 05-17-2025 Ecg routine ecg w/le ast 12 lds trcg only w/o i&r Jovan G Nesheim DO Work Phone: Start: 05-17-2025 Basic metabolic pane l calcium total Jovan G Nesheim DO Work Phone: Start: 05-15-2025 Ecg routine ecg w/le ast 12 lds trcg only w/o i&r Harpal Cuevas MD Work Phone: Start: 05-14-2025 Ct abdomen & pelvis w/contrast material Harpal Cuevas MD Work Phone: Start: 05-14-2025 Ct cervical spine w/ o contrast material Harpal Cuevas MD Work Phone: Start: 05-14-2025 Ct head/brain w/o co ntrast material Harpal Cuevas MD Work Phone: Start: 05-14-2025 Urnls dip stick/tabl et rgnt auto w/o microscopy Harpal Cuevas MD Work Phone: Start: 05-14-2025 Bacteria identified in Blood by Culture Harpal Cuevas MD Work Phone: Start: 05-14-2025 Blood gases any comb ination ph pco2 po2 co2 hco3 Harpal Cuevas MD Work Phone: Start: 05-14-2025 Comprehensive metabo lic panel Harpal Cuevas MD Work Phone: Start: 05-12-2025 Occupational therapy Matthew amauri Abel MD Work Phone: Start: 04-28-2025 Mri spinal canal cer vical w/o contrast matrl Jeremiah Martínez MD Work Phone: Start: 03-17-2025 CT of chest without contrast Dr. Jeremiah Martínez MD Start: 03-03-2025 Radex shoulder compl ete minimum [...] Martínez MD Comment on above: Performed at: [address] [id number] Director: Rik Lynn MD, Phone: [phone] Start: 02-10-2025 Plantain (Djiboutian) RAST Dr. Jeremiah Martínez MD Start: 12-19-2024 [...] cervical spine w/ o contrast material Anna Maurer MD Work Phone: Start: 01-18-2021 Ct head/brain w/o co ntrast material Anna Maurer MD Work Phone: Start: 01-18-2021 LACERATION REPAIR Anna Maurer MD Work Phone: Start: 10-04-2020 Duplex scan extracra nial art compl bi study Jeremiah Martínez Work Phone: Start: 09-14-2020 Ct maxillofacial w/o contrast material Hai Hess Work Phone: Start: 08-17-2020 Radiologic exam ches t 2 views Jeremiah Martínez Work Phone: Start: 06-24-2020 Ct cervical spine w/ o contrast material Jhonatan Aguirre [employer] Work Phone: Start: 06-24-2020 Ct head/brain w/o co ntrast material Jhonatan Aguirre [employer] Work Phone: Start: 06-24-2020 Ct maxillofacial w/o contrast material Jhonatan Aguirre [employer] Work Phone: Start: 11-08-2019 Radex clavicle complete Jeremiah Martínez Work Phone: Start: 11-08-2019 Radex shoulder compl ete minimum 2 views Jeremiah Martínez Work Phone: Start: 11-08-2019 Radiologic exam knee complete 4/more views Jeremiah Martínez Work Phone: Start: 2019 Radex hip unilateral with pelvis 2-3 views Nilesh Alexandria Garces Work Phone: Start: 06-22-2019 Radex hip unilateral with pelvis 2-3 views Nilesh Alexandria D[facility]richardson Work Phone: Start: 06-13-2019 Blood count complete automated Willian May Work Phone: Start: 06-12-2019 Blood count complete auto&auto difrntl wbc Willian May Work Phone: Start: 06-11-2019 OPERATIVE REPORT 3m Sca nning Start: 06-11-2019 Radiologic examinati on femur minimum 2 views Anna Moy Work Phone: Start: 06-11-2019 Blood typing serologic abo Charlene Diehlsaleem Work Phone: Start: 06-11-2019 Chest x-ray 1 view frontal Charlene Rydervikisaleem Work Phone: Start: 10-05-2019 Assay of troponin quantitative Anna Moy Work [...] (1 - 1-dose 75+ series) [facility] Start: 12-31-2027 Diabetes Screening Diabetes Screening [facility] Start: 05-17-2026 Diabetes: Estimated Glomerular Filtration Rate for [facility] Diabetes: Estimated Glomerular Filtration Rate for [facility] Start: 05-14-2026 Diabetes: Estimated Glomerular Filtration Rate for [facility] Diabetes: Estimated Glomerular Filtration Rate for Kidney [facility] Start: 12-30-2025 Diabetes: Estimated Glomerular Filtration Rate for [facility] Diabetes: Estimated Glomerular Filtration Rate for [facility] Start: 10-14-2025 Diabetes: Estimated Glomerular Filtration Rate for [facility] Diabetes: Estimated Glomerular Filtration Rate for [facility] Start: 08-29-2025 End: 08-29-2025 Patient encounter procedure 08/29/2025 4:00 PM EST Office Visit [facility] [place] [address] Kaila Ortega, RACEHORSE TRAINER - [employer] 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 Start: 05-12-2025 EMG/NCT bilateral lower extremity [facility] Work Phone: Start: 05-12-2025 EMG/NCT right upper extremity [facility] Work Phone: Start: 05-12-2025 Radex hand minimum 3 views [employer] Work Phone: Start: 05-08-2025 COVID-19 Vaccine ( season) COVID-19 Vaccine ( season) [facility] Start: 05-08-2025 Influenza vaccination [facility] Start: 04-17-2025 End: 04-17-2025 Patient encounter procedure 04/17/2025 10:00 AM EDT Appointment [facility] [address] [place] [address] Jeremiah Martínez MD [address] [facility] [address] [place] [address] [facility] Start: 03-28-2025 End: 03-28-2026 Nerve conduction test with EMG Nerve conduction test with EMG Neurology Routine Polyneuropathy, unspecified Expected: 03/28/2025 (Approximate), Expires: 03/28/2026 [facility] Work Phone: Comment on above: Expected: 03/28/2025 (Approximate), Expi res: 03/28/2026 Start: 03-16-2025 End: 03-16-2025 Admission to same day surgery center 03/16/2025 10:00 AM EDT - 03/16/2025 11:53 AM EDT Surgery [place] [address] Gopi Bess MD [address] [place] [address] NON-SELECTIVE CATH PLACEMENT THORACIC AORTA W/ ANGIOGRAPHY OF THE EXTRACRANIAL CAROTID VERTEBRAL AND/OR INTRACRANIAL VESSELS UNILATERAL W/ ANGIOGRAPHY OF THE CERVICOCEREBRAL ARCH [facility] Comment on above: NON-SELECTIVE CATH PLACEMENT [...] aneurysm, nonruptured (HCC) 03/16/2025 10:00 AM EDT [facility] Start: 03-16-2025 Subsequent hospital visit by physician 03/16/2025 10:00 AM EDT Hospital Encounter [place] [address] Gopi Bess MD [address] [place] [address] (Fax) Cerebral aneurysm, nonruptured (HCC) [I67.1] [facility] Comment on above: Cerebral aneurysm, nonruptured (HCC) [I6 7.1] Start: 02-17-2025 End: 02-17-2025 Admission to same day surgery center 02/17/2025 11:05 AM EDT - 02/17/2025 12:58 PM EDT Surgery [place] [address] Gopi Bess MD [address] [place] [address] (Fax) NON-SELECTIVE CATH PLACEMENT THORACIC AORTA W/ ANGIOGRAPHY OF THE EXTRACRANIAL CAROTID VERTEBRAL AND/OR INTRACRANIAL VESSELS UNILATERAL W/ ANGIOGRAPHY OF THE CERVICOCEREBRAL ARCH [facility] Comment on above: NON-SELECTIVE CATH PLACEMENT [...] aneurysm, nonruptured (HCC) 02/17/2025 11:05 AM EDT [facility] Start: 02-17-2025 Subsequent hospital visit by physician 02/17/2025 11:05 AM EDT Hospital Encounter [facility] [address] Gopi Bess MD [address] [place] [address] Cerebral aneurysm, nonruptured (HCC) [I67.1] [facility] Comment on above: Cerebral aneurysm, nonruptured (HCC) [I6 7.1] Start: 02-17-2025 Measurement of respiratory function [facility] Start: 02-03-2025 Polysomnography [facility] Start: 01-19-2025 End: 01-19-2025 Admission to same day surgery center 01/19/2025 10:57 AM EDT - 01/19/2025 12:50 PM EDT Surgery [facility] [id number] Gopi Bess MD [address] [place] [address] NON-SELECTIVE CATH PLACEMENT THORACIC AORTA W/ ANGIOGRAPHY OF THE EXTRACRANIAL CAROTID VERTEBRAL AND/OR INTRACRANIAL VESSELS UNILATERAL W/ ANGIOGRAPHY OF THE CERVICOCEREBRAL ARCH [facility] Comment on above: NON-SELECTIVE CATH PLACEMENT [...] aneurysm, nonruptured (HCC) 01/19/2025 10:57 AM EDT [facility] Start: 01-19-2025 Subsequent hospital visit by physician 01/19/2025 10:57 AM EDT Hospital Encounter [facility] [id number] Gopi Bess MD [address] [place] [address] Cerebral aneurysm, nonruptured (HCC) [I67.1] [facility] Comment on above: Cerebral aneurysm, nonruptured (HCC) [I6 7.1] Start: 12-26-2024 Polysomnography [facility] Start: 12-21-2024 Measurement of respiratory function [facility] Start: 10-06-2024 End: 10-06-2024 Patient encounter procedure 10/06/2024 9:15 AM EST Office Visit [facility] [address] [place] [id number] Nery Ruiz MD [address] [place] [address] [facility] Start: 09-07-2024 Advance Directive Discussion Advance Directive Discussion [facility] Start: 09-07-2024 Medicare Advantage Annual Wellness Visit Medicare Advantage Annual Wellness Visit [facility] Start: 06-21-2024 End: 06-21-2026 Stress echocardiogram (TTE) exercise with contrast, bubble, strain, and 3D PRN Stress echocardiogram (TTE) exercise with contrast, bubble, strain, and 3D PRN CV Stress Echocardiography Routine Shortness of breath Expected: 06/21/2024 (Approximate), Expires: 06/21/2026 [facility] [employer] [facility] Work Phone: Comment on above: Expected: 06/21/2024 (Approximate), Expi res: 06/21/2026 Start: 05-08-2024 COVID-19 Vaccine () COVID-19 Vaccine () [facility] Start: 05-08-2024 COVID-19 Vaccine () COVID-19 Vaccine ( season) [facility] Start: 05-08-2024 Influenza vaccination [facility] Start: 03-24-2024 End: 03-24-2024 Patient encounter procedure 03/24/2024 9:30 AM EDT Office Visit [facility] [address] [place] [address] Nery Ruiz MD [address] [place], [place] [id number] [facility] Start: 01-21-2024 End: 01-21-2024 Patient encounter procedure 01/21/2024 9:30 AM EDT Office Visit [facility] [address] [place] [address] Nery Ruiz MD [address] [place], [place] [id number] [facility] Start: 12-02-2023 End: 12-02-2023 Patient encounter procedure 12/02/2023 11:00 AM EDT Office Visit [facility] Family Medicine [address] [place] [address] [place] [phone] Ana Schneider, [address] [facility] [address] [place], [place] [address] [facility] Start: 11-23-2023 End: 11-22-2024 XR Ankle - right 3 Views [facility] Comment on above: Once for 1 Occurrences starting 11/23/19 until 11/23/2023 Expected: 11/23/2023 , Expires: 11/22/2024 Start: 11-23-2023 End: 11-22-2024 XR Knee - right 3 Views [facility] Work Phone: Comment on above: Once for 1 Occurrences starting 11/23/19 until 11/23/2023 Expected: 11/23/2023 , Expires: 11/22/2024 Start: 09-21-2023 End: 09-21-2023 Patient encounter procedure 09/21/2023 9:00 AM EST Office Visit [facility] Family Medicine [address] [place] [address] Charlene Perla PA-C [address] [place] [address] [facility] Start: 09-07-2023 Advance Directive Discussion Advance Directive Discussion [facility] Start: 09-07-2023 Behavioral Health Screening Behavioral Health Screening [facility] Start: 09-07-2023 Medicare [facility] Annual Wellness Visit Medicare Advantage Annual Wellness Visit [facility] Start: 07-02-2023 End: 07-02-2023 Patient encounter procedure 07/02/2023 9:00 AM EDT Appointment [facility] Non-Invasive Cardiology [address] [place] [phone] [facility] Non-Invasive Cardiology Start: 06-29-2023 End: 06-29-2025 Stress echocardiogram (TTE) exercise with contrast, bubble, strain, and 3D PRN Stress echocardiogram (TTE) exercise with contrast, bubble, strain, and 3D PRN CV Stress Echocardiography Routine Emphysema, unspecified (HCC) Expected: 06/29/2023 (Approximate), Expires: 06/29/2025 [facility] Work Phone: Comment on above: Expected: 06/29/2023 (Approximate), Expi res: 06/29/2025 Start: 06-11-2023 End: 06-11-2023 Patient encounter procedure 06/11/2023 2:15 PM EDT Office Visit [facility] [address] [place] [address] Kush Miller, [address] [place], [place] [id number] [facility] Start: 06-11-2023 Diabetes: Estimated Glomerular Filtration Rate for Kidney Health Diabetes: Estimated Glomerular Filtration Rate for Kidney Health [facility] Start: 05-08-2023 COVID-19 Vaccine ( season) COVID-19 Vaccine ( season) [facility] Start: 05-08-2023 Influenza vaccination [facility] Start: 09-07-2022 ADVANCE DIRECTIVE DISCUSSION ADVANCE DIRECTIVE DISCUSSION [facility] Start: 09-07-2022 DEPRESSION ASSESSMENT DEPRESSION ASSESSMENT [facility] Start: 2022 BONE DENSITY BONE DENSITY [facility] Start: 2022 Bone Density Screening Bone Density Screening [facility] Start: 2022 Screening for osteoporosis Bone Density Screening [facility] Start: 05-08-2022 Influenza vaccination INFLUENZA (#1) [facility] Start: 05-08-2021 Influenza vaccination [facility] Start: 05-08-2020 Influenza vaccination Flu vaccine (#1) [place], [place] Start: 08-24-2019 End: 08-24-2019 Office Visit 08/24/2019 Office Visit Orthopedic Surgery Nilesh Garces MD [address] [place] [address] [address] [place] [address] [phone] [facility] [place] Start: 2019 End: 2019 Nurse Only [facility] [place] Start: 07-09-[address] lung screening Low dose CT lung screening [place], [place] Start: 07-09-2019 Screening for malignant neoplasm of lung Low dose CT lung screening [facility] Start: 05-17-2019 End: 05-17-2019 Appointment 05/17/2019 Appointment Radiology Jeremiah Martínez MD [address] [place] [id number] [facility] Start: 05-08-2019 Influenza vaccination Flu vaccine (#1) [place], [place] Start: 2017 Hepatitis B Vaccines (1 of 3 - Risk 3-dose series) Hepatitis B Vaccines (1 of 3 - Risk 3-dose series) [facility] Start: 2017 RSV Immunization aged 60 or older (1 - 1-dose 60+ series) RSV Immunization aged 60 or older (1 - 1-dose 60+ series) [facility] Start: 2017 RSV Immunization for Adults (1 - Risk 60-74 years 1-dose series) RSV Immunization for Adults (1 - Risk 60-74 years 1-dose series) [facility] Start: 2017 RSV Vaccine (1 - 1-dose 60+ series) RSV Vaccine (1 - 1-dose 60+ series) [facility] Start: 2007 Breast cancer screen Breast cancer screen [place], [place] Start: 2007 Colon cancer screen colonoscopy Colon cancer screen colonoscopy [place] Start: 2007 Screening for malignant neoplasm of breast Breast cancer screen [facility] Start: 2007 Screening for malignant neoplasm of colon Colon cancer screen colonoscopy [place] Start: 2007 Shingles Vaccine (1 of 2) Shingles Vaccine (1 of 2) [facility] Start: 2007 SHINGRIX VACCINE (1 of 2) SHINGRIX VACCINE (1 of 2) [facility] Start: 2007 Zoster Vaccines (1 of 2) Zoster Vaccines (1 of 2) [facility] Start: 2002 COLOGUARD (FIT-DNA) COLOGUARD (FIT-DNA) [facility] Start: 2002 Colonoscopy COLONOSCOPY [facility] Start: 2002 COLORECTAL CANCER SCREENING COLORECTAL CANCER SCREENING [facility] Start: [address] COLONOGRAPHY [facility] Start: 2002 DIABETES SCREEN DIABETES SCREEN [facility] Start: 2002 Diabetes Screening Diabetes Screening [facility] Start: 2002 FECAL OCCULT BLOOD FECAL OCCULT BLOOD [facility] Start: 2002 Lipid 1996 panel - Serum or Plasma Lipid Screening [facility] Start: 2002 Lipid panel Lipid Screening [facility] Start: 2002 LIPID SCREEN LIPID SCREEN [facility] Start: 2002 Screening for malignant neoplasm of colon [facility] Start: 2002 SIGMOIDOSCOPY SIGMOIDOSCOPY [facility] Start: 1997 Diabetes screen Diabetes screen [place], [place] Start: 1997 Lipid panel Lipid screen [facility] Start: 1997 Lipid screen Lipid screen [place] Start: 1997 Mammography [facility] Start: 1997 Screening for malignant neoplasm of breast [facility] Start: 1992 Diabetes screen Diabetes screen [facility] Start: 1987 HPV TESTING HPV TESTING [facility] Start: 1987 Screening for malignant neoplasm of cervix [facility] Start: 1978 Cervical cancer screen Cervical cancer screen [place], [place] Start: 1978 PAP TESTING PAP TESTING [facility] Start: 1978 Screening for malignant neoplasm of cervix [facility] Start: 1976 DTaP/Tdap/Td vaccine (1 - Tdap) DTaP/Tdap/Td vaccine (1 - Tdap) [facility] Start: 1976 DTaP/Tdap/Td Vaccines (1 - Tdap) DTaP/Tdap/Td Vaccines (1 - Tdap) [facility] Start: 1976 Pneumococcal Vaccine: 50+ (1 of 2 - PCV) Pneumococcal Vaccine: 50+ (1 of 2 - PCV) [facility] Start: 1976 Pneumococcal Vaccine: 50+ Years (1 of 2 - PCV) Pneumococcal Vaccine: 50+ Years (1 of 2 - PCV) [facility] Start: 1976 Urine microalbumin profile [facility] Start: 1976 Urine screening for protein Diabetes: Urine Protein Screening [facility] Start: 1975 Anxiety Screening Anxiety Screening [facility] Start: 1975 Depression Screening Depression Screening [facility] Start: 1975 Diabetes: Urine Albumin-Creatinine Ratio for Kidney Health Diabetes: Urine Albumin-Creatinine Ratio for Kidney Health [facility] Start: 1975 HEPATITIS C SCREENING HEPATITIS C SCREENING [facility] Start: 1975 Hepatitis C screening Hepatitis C Screening [facility] Start: 1975 HIV SCREENING HIV SCREENING [facility] Start: 1972 HIV screen HIV screen [place] Start: 1972 HIV screening HIV screen [facility] Start: 1969 Adult depression screening assessment DEPRESSION SCREENING [facility] Start: 1969 COVID-19 Vaccine (1) COVID-19 Vaccine (1) [facility] Work Phone: Start: 1969 Depression Monitoring Depression Monitoring [facility] Start: 1968 DTaP/Tdap/Td vaccine (1 - Tdap) DTaP/Tdap/Td vaccine (1 - Tdap) [place] Start: 1967 Diabetic foot examination Diabetes: Foot Exam [facility] Start: 1967 Glaucoma screening Diabetes: Retinopathy Screening [facility] Start: 1967 Preventive dental service Diabetes: Dental Exam [facility] Start: 1963 Pneumococcal 0-64 years Vaccine (1 of 1 - PPSV23) Pneumococcal 0-64 years Vaccine (1 of 1 - PPSV23) [place] Start: 1963 Pneumococcal 0-64 years Vaccine (1 of 2 - PPSV23) Pneumococcal 0-64 years Vaccine (1 of 2 - PPSV23) [facility] Start: 1963 Pneumococcal Vaccine: 65+ (1 - PCV) Pneumococcal Vaccine: 65+ (1 - PCV) [facility] Start: 1963 Pneumococcal Vaccine: 65+ (1 of 2 - PCV) Pneumococcal Vaccine: 65+ (1 of 2 - PCV) [facility] Start: 1963 Pneumococcal Vaccine: 65+ Years (1 - PCV) Pneumococcal Vaccine: 65+ Years (1 - PCV) [facility] Start: 1963 Pneumococcal Vaccine: 65+ Years (1 of 2 - PCV) Pneumococcal Vaccine: 65+ Years (1 of 2 - PCV) [facility] Start: 1963 PNEUMOCOCCAL: 65+ (1 - PCV) PNEUMOCOCCAL: 65+ (1 - PCV) [facility] Start: 1962 COVID-19 Vaccine (1) COVID-19 Vaccine (1) [facility] Start: 01-17-1958 COVID-19 VACCINE (#1) COVID-19 VACCINE (#1) [facility] Start: 1957 Annual wellness visit Medicare Initial Physical (IPPE) [facility] Start: 1957 Hemoglobin A1c measurement Diabetes: Hemoglobin A1C [facility] Start: 1957 Hepatitis B Vaccines (1 of 3 - 3-dose series) Hepatitis B Vaccines (1 of 3 - 3-dose series) [facility] Start: 1957 Hepatitis C screen Hepatitis C screen [place] Start: 1957 Hepatitis C screening Hepatitis C screen [facility] Start: 1957 Lipid panel Lipid Panel [facility] Start: 1957 Medicare Advantage Annual Wellness Visit (AWV) Medicare Advantage Annual Wellness Visit (AWV) [facility] Start: 1957 Screening for malignant neoplasm of colon [facility] Start: 1957 Screening for osteoporosis Bone Density Scan [facility] Bacteria identified in Blood by Culture Blood culture Site #1 - Suspected Infection Microbiology STAT 05/14/2025 2:43 AM EDT [facility] End: 05-23-2019 Cardiac Stress Test Exercise - Treadmill Cardiac Stress Test Exercise - Treadmill Cardiac Services Routine One Time for 1 Occurrences starting 05/23/2019 until 05/23/2019 [facility] Comment on above: One Time for 1 Occurrences starting 05/08 until 05/23/2019 CBC W Auto Different ial panel - Blood [facility] End: 04-16-2024 COLONOSCOPY DIAGNOSTIC COLONOSCOPY DIAGNOSTIC Endoscopy Routine Altered bowel habits Abnormal weight loss 1 Occurrences starting 04/16/2023 until 04/16/2024 [facility] Work Phone: Comment on above: 1 Occurrences starting 04/16/2023 until 04/16/2024 CT Chest [facility] CT Chest WO contrast [facility] End: 12-08-2024 CT Maxillofacial region WO contrast [facility] Work Phone: Comment on above: Once for 1 Occurrences starting 12/09/19 until 12/08/2024 End: 05-14-2025 ECG 12 lead ECG 12 lead CV ECG STAT Once for 1 Occurrences starting 05/14/2025 until 05/14/2025 [facility] [employer] [facility] Work Phone: Comment on above: Once for 1 Occurrences starting 05/14/20 until 05/14/2025 End: 04-16-2024 EGD DIAGNOSTIC EGD DIAGNOSTIC Endoscopy Routine Abnormal weight loss Postprandial epigastric pain 1 Occurrences starting 04/16/2023 until 04/16/2024 [facility] Work Phone: Comment on above: 1 Occurrences starting 04/16/2023 until 04/16/2024 End: 06-11-2019 FL LESS THAN 1 HOUR FL LESS THAN 1 HOUR Imaging Routine Once for 1 Occurrences starting 06/11/2019 until 06/11/2019 [facility] MORILLO Comment on above: Once for 1 Occurrences starting 06/11/20 19 until 06/11/2019 FL LESS THAN 1 HOUR FL LESS THAN 1 HOUR Imaging Routine 06/11/2019 9:15 AM EDT [facility] [Units/volume] i n Serum or Plasma [facility] Initiate Oxygen Ther apy Protocol Initiate Oxygen Therapy Protocol Respiratory Care Routine Daily until discontinued starting 06/11/2019 [facility] Comment on above: Daily until discontinued starting 2018 End: 12-08-2024 MR Brain [facility]: Comment on above: Once for 1 Occurrences starting 12/09/19 until 12/08/2024 End: 05-16-2019 Nasal Cannula Oxygen Nasal Cannula Oxygen Respiratory Care Routine As Needed until discontinued starting 05/16/2019 [facility] Comment on above: As Needed until discontinued starting End: 05-23-2019 Nasal Cannula Oxygen Nasal Cannula Oxygen Respiratory Care Routine As Needed until discontinued starting 05/23/2019 [facility] Comment on above: As Needed until discontinued starting End: 04-07-2025 Nerve conduction test with EMG [employer] Work Phone: Comment on above: Once for 1 Occurrences starting 04/07/20 until 04/07/2025 OUTSIDE PROCEDURE SCAN OUTSIDE P ROCEDURE SCAN Procedures Ordered: 11/27/2022 [facility] [employer] [facility] Comment on above: Ordered: 11/27/2022 OUTSIDE PROCEDURE SCAN OUTSIDE P ROCEDURE SCAN Procedures Ordered: 03/18/2023 [facility] [employer] [facility] Comment on above: Ordered: 03/18/2023 OUTSIDE PROCEDURE SCAN OUTSIDE P ROCEDURE SCAN Procedures Ordered: 04/09/2023 [facility] [employer] [facility] Comment on above: Ordered: 04/09/2023 OUTSIDE PROCEDURE SCAN OUTSIDE P ROCEDURE SCAN Procedures Ordered: 06/24/2023 [facility] [employer] [facility] Comment on above: Ordered: 06/24/2023 OUTSIDE PROCEDURE SCAN OUTSIDE P ROCEDURE SCAN Procedures Ordered: 07/01/2023 [facility] [employer] [facility] Comment on above: Ordered: 07/01/2023 OUTSIDE PROCEDURE SCAN OUTSIDE P ROCEDURE SCAN Procedures Ordered: 11/09/2023 [facility] [employer] [facility] Comment on above: Ordered: 11/09/2023 OUTSIDE PROCEDURE SCAN OUTSIDE P ROCEDURE SCAN Procedures Ordered: 11/23/2023 [facility] Comment on above: Ordered: 11/23/2023 OUTSIDE PROCEDURE SCAN OUTSIDE P ROCEDURE SCAN Procedures Ordered: 11/24/2023 [facility] Comment on above: Ordered: 11/24/2023 OUTSIDE PROCEDURE SCAN OUTSIDE P ROCEDURE SCAN Procedures Ordered: 05/23/2024 [facility] Comment on above: Ordered: 05/23/2024 OUTSIDE PROCEDURE SCAN OUTSIDE P ROCEDURE SCAN Procedures Ordered: 11/04/2024 [facility] Comment on above: Ordered: 11/04/2024 OUTSIDE PROCEDURE SCAN OUTSIDE P ROCEDURE SCAN Procedures Ordered: 03/03/2025 [facility] Comment on above: Ordered: 03/03/2025 Positron emission tomography with computed tomography [facility] End: 05-15-2024 US ABD RIGHT UPPER QUADRANT US ABD RIGHT UPPER QUADRANT Radiology Routine Postprandial epigastric pain 1 Occurrences starting 04/16/2023 until 05/15/2024 [facility] Work Phone: Comment on above: 1 Occurrences starting 04/16/2023 until 05/15/2024 End: 11-24-2023 XR Ankle - right 3 Views [facility] [employer] Work Phone: Comment on above: Once for 1 Occurrences starting 11/24/19 until 11/24/2023 End: 03-03-2025 XR Cervical spine 2 or 3 Views [facility] Work Phone: Comment on above: Once for 1 Occurrences starting 03/03/20 until 03/03/2025 End: 05-03-2019 XR CHEST STANDARD (2 VW) XR CHEST STANDARD (2 VW) Imaging Routine Once for 1 Occurrences starting 05/03/2019 until 05/03/2019 [facility] Comment on above: Once for 1 Occurrences starting 05/03/20 until 05/03/2019 XR CHEST STANDARD (2 VW) XR CHES T STANDARD (2 VW) Imaging Routine 05/03/2019 2:00 PM EDT [facility] End: 06-11-2019 XR Femur Right 2 VW XR Femur Right 2 VW Imaging STAT Once for 1 Occurrences starting 06/11/2019 until 06/11/2019 [facility] Comment on above: Once for 1 Occurrences starting 06/11/20 19 until 06/11/2019 End: 03-18-2023 XR Hip - left 3 Views [employer] Work Phone: Comment on above: Once for 1 Occurrences starting 03/18/20 23 until 03/18/2023 End: 11-24-2023 XR Knee - right 3 Views [employer] Comment on above: Once for 1 Occurrences starting 11/24/19 24 until 11/24/2023 End: 07-12-2021 XR KNEE RIGHT (MIN 4 VIEWS) XR KNEE RIGHT (MIN 4 VIEWS) Imaging Routine Once for 1 Occurrences starting 07/12/2021 until 07/12/2021 [employer] Work Phone: Comment on above: Once for 1 Occurrences starting 07/12/20 21 until 07/12/2021 XR KNEE RIGHT (MIN 4 VIEWS) XR KNEE RIGHT (MIN 4 VIEWS) Imaging Routine 07/12/2021 12:46 PM EDT [employer] Work Phone: [facility] Immunizations Immunization Date Immunization Notes Care Provider Fa [facility] 06-03-2015 influenza virus vacc ine, unspecified formulation Jeremiah Martínez MD Work Phone: [facility] Payers Date Payer Category Payer Self-pay [id number] 2022 Medicare (Managed Care) [facility] [id number] 2022 Medicare HMO [employer] MEDICARE [id number] 2022 Private Health Insurance [id number] 2022 Medicare [id number]. [id number] 2021 Medicaid [id number] [id number]. [id number] 2020 Private Health Insurance [id number] 1.2.840.342955.1.13.239.2. 7.3.819654.315 2018 Medicaid [id number] 1.2.840.637841.1.13.239.2. [id number] 2014 Unknown [id number] 1.2.840.653011.1.13.239.2. 7.3.129026.315 2014 Unknown [id number] 1.2.840.329372.1.13.239.2. 7.3.736262.315 1957 Unknown [id number] 2.16.840.1.152663.3.579.2. 1957 Unknown [id number] 2.16.840.1.850788.3.579.2. 1957 Unknown [id number] 2.16.840.1.507388.3.579.2. 1957 Unknown [id number] 2.16.840.1.176125.3.579.2. 668 1957 Unknown [id number] 2.16.840.1.871167.3.579.2. 668 Medicare MEDICARE PART A B [id number] Private Health Insurance Unknown [facility] [id number] Unknown [id number] 2.16.840.1.834888.3.579.2. 462 Unknown [id number] 2.16.840.1.279920.3.579.2. 462 Unknown [id number] 2.16.840.1.655608.3.579.2. 462 Unknown [id number] 2..840.1.002336.3.579.2. 462 Unknown [id number] 2.16.840.1.825696.3.579.2. 462 Unknown [id number] 2.16.840.1.983758.3.579.2. 462 Unknown [id number] 2.16.840.1.565058.3.579.2. 462 Unknown [id number] 2.16.840.1.657344.3.579.2. 462 Unknown [id number] 2.16.840.1.788170.3.579.2. 462 Unknown [id number] 2.16.840.1.324298.3.579.2. 462 Unknown [id number] 2.16.840.1.705572.3.579.2. 462 Unknown [id number] 2.16.840.1.965137.3.579.2. 462 Unknown [id number] 2.16.840.1.424421.3.579.2. 462 Unknown [id number] 2.16.840.1.069214.3.579.2. 462 Unknown [id number] 2.16.840.1.556141.3.579.2. 462 Unknown [id number] 2.16.840.1.263233.3.579.2. 462 Unknown [id number] 2.16.840.1.949681.3.579.2. 462 Unknown [id number] Social History Date Type Detail Facility Start: 05-16-2019 End: 05-14-2025 Tobacco smoking status NHIS Current every day smoker [facility] Start: 05-16-2019 End: 05-17-2025 Alcohol intake Yes [place], [place] Start: 02-28-2016 Alcohol Comment occ [place], [place] Start: 1955 Sex Assigned At Not on file M [place] Start: 05-23-2019 End: 05-17-2025 Cigarettes smoked current (pack per day) - Reported [place], [place] Start: 2019 End: 10-14-2024 Alcohol intake Current drinker of alcohol (finding) [place] Start: 06-24-2020 End: 05-14-2025 Tobacco use and exposure Never used [place] Start: 06-24-2020 Alcohol Comment frequently [place], [place] Start: 11-21-2021 End: 03-18-2023 Exposure to SARS-CoV-2 (event) Not sure [place], [place] History of tobacco use Cigarette Smoker [facility] Start: 04-15-2006 Alcohol intake Not Asked [facility] Start: 11-04-2021 End: 12-07-2023 Tobacco smoking status CTIS Unknown if ever smoked [facility] Start: 10-30-2020 [facility] Start: 10-30-2020 [facility] Start: 10-30-2020 Spouse/ Signif icant Other [facility] Start: 10-30-2020 Cigarettes [facility] Start: 1955 Sex Assigned At Female [facility] Start: 08-08-2012 National Score (1-10 0), lower number is lower risk 78 [facility] Start: 04-07-2022 End: 12-22-2024 Sex Female (finding) [facility] How often to you hav e a drink containing alcohol? Monthly or less [facility] How many standard drinks containing alcohol do you have on a typical day? 1 or 2 [facility] How often do you hav e 6 or more drinks on 1 occasion? Never [facility] Start: 05-12-2025 smoking/tobacco cessation, patient education and counseling Smoking cessation education (procedure) [employer] Work Phone: How often to you hav e a drink containing alcohol? 2-3 time sa week [facility] Start: 05-14-2025 Alcohol Comment 2 beers couple times a week [facility] How often to you hav e a drink containing alcohol? 2-4 times a month [facility] Medical Equipment Procedure Code Equipment Code [...] surgery) SEALANT,FLOSEAL HEMOSTATIC 5ML FDA Start: 10-30-2020 Functional Status Date Assessment Result Facility 05-17-2025 Total score [AUDIT-C] 2 05/17/20 10:13 PM EDT Zulema Bowen RN [facility] 05-14-2025 Total score [AUDIT-C] 3 05/14/20 1:53 AM EDT Hortencia Lyons RN [facility] 05-12-2025 Functional Status Yes [employer] Work Phone: 05-12-2025 dependent [employer] Work Phone: [facility] Clinical Notes 05-29-2022 to 05-17-2025 Discharge InstructionsAttachmentsJovan Mae DO - 05/17/2025 10:05 PM EDTJovan Mae DO - 05/17/2025 10:05 PM EDTHarpal Cuevas MD - 05/14/2025 1:48 AM EDT Note Date & Type Note Facility 05-17-2025 Hospital Discharge instructions Jovan Mae DO - 05/17/2025 11:36 PM EDT Please use the pain medicine as needed. Take the steroids as we discussed. Continue the antibiotics prescribed by your doctor. Return for any severe worsening symptoms. Use your incentive spirometer as we discussed. The following attachments cannot be sent through Care Everywhere.Pleuritic Chest Pain (Djiboutian)Bruised Rib Discharge Instructions ([place]jiboutian)documented in this encounter [facility] 05-17-2025 Emergency department Note Emergency Department Encounter [facility] ED Patient: Sully Perdomo : 1955 Date of Evaluation: 05/17/2025 ED Provider: Jovan Mae DO Chief Complaint Chief Complaint Patient presents with Shortness of Breath NENANA Sully Perdomo is a 69 y.o. female who presents to the emergency department complaining of left rib pain. Patient explains that few days prior she had a fall, striking the left side of her ribs and injuring her head. She was evaluated and was found to have bruised rib. She reportedly did not have any rib fractures, pneumothorax or other severe injuries. Patient reports she had minimal symptoms however today she started having severe pain on the left side. This is worse if she takes a deep breath. She does chronically use oxygen due to history of COPD. She also had increased sputum production and spoke with her doctor who started her on doxycycline, she has not taken any doses of this yet. Additional history obtained from : n/a Barriers to obtaining history from patient: n/a ROS: Review of Systems completed as follows: (Bold = positive, Not bold = negative) GENERAL: fevers, chills, malaise ENT: runny nose, congestion, sore throat, ear pain NEURO: weakness, numbness of tingling, headache CARDIOVASCULAR: chest pain, syncope PULMONARY: shortness of breath, cough, wheezing GASTROINTESTINAL: nausea, vomiting, abdominal pain, diarrhea, constipation, MUSCULOSKELETAL: pain GENITAL/URINARY: dysuria, hematuria, increased urinary frequency, hesitancy, flank pain SKIN: rash, lesions, wound Past History Medical History[1] Surgical History[2] Social History[3] I have reviewed the history above as provided by nursing notes. Medications/Allergies Discharge Medication List as of 05/17/2025 11:37 PM CONTINUE these medications which have NOT CHANGED Details albuterol (2.5 MG/3ML) 0.083% nebulizer solution albuterol sulfate 2.5 mg/3 mL (0.083 %) solution for nebulization, Historical Med albuterol 108 (90 Base) MCG/ACT inhaler every 4 hours., Starting Thu06/26/2022, Historical Med alendronate (Fosamax) 70 MG tablet 1 tablet 30 minutes before the first food, beverage or medicine of the day with plain water Orally Once a week for 84, Historical Med ALPRAZolam (Xanax) 1 MG tablet alprazolam 1 mg tablet, Historical Med amLODIPine (Norvasc) 10 MG tablet Take 10 mg by mouth daily., Starting Thu09/19/2022, Historical Med azithromycin (Zithromax) 250 MG tablet Every 24 hours., Starting Thu11/25/2022, Historical Med busPIRone (Buspar) 10 MG tablet Starting Thu12/07/2022, Historical Med cefdinir (Omnicef) 300 MG capsule Take 300 mg by mouth 2 times daily., Starting Thu05/22/2022, Historical Med clarithromycin (Biaxin) 500 MG tablet clarithromycin 500 mg tablet, Historical Med clindamycin (Cleocin) 150 MG capsule take 1 capsule by mouth twice a day until finished, Historical Med clonazePAM (KlonoPIN) 0.5 MG tablet Take 0.5 mg by mouth Nightly., Starting Thu11/12/2022, Historical Med cyclobenzaprine (Flexeril) 5 MG tablet every 12 hours., Historical Med dexAMETHasone (Decadron) 6 MG tablet Take 1 tablet (6 mg) by mouth daily for 5 days., Starting Thu10/14/2024, Until Thu10/19/2024, Normal doxycycline (Vibra-Tabs) 100 MG tablet Take 100 mg by mouth 2 times daily., Starting Thu12/20/2021, Historical Med escitalopram (Lexapro) 10 MG tablet Starting Thu12/07/2022, Historical Med fluticasone (Flonase) 50 MCG/ACT nasal spray INSTILL 2 SPRAYS INTO EACH NOSTRIL DAILY, Starting Thu02/20/2025, Normal Ajuuymygspk-Yvfuazgli-Devoni (Trelegy Ellipta) 100-62.5-25 MCG/ACT aerosol powder 1 puff Every 24 hours., Historical Med guaiFENesin (Mucinex) 600 MG 12 hr tablet Take 1 tablet by mouth every 12 hours as needed., Historical Med HYDROcodone-acetaminophen ([place]) 5-325 MG tablet take 1 tablet by mouth every 4 to 6 hours WHILE AWAKE if needed for POST OP PAIN for 3 days, Historical Med hydrOXYzine HCl (Atarax) 25 MG tablet take 3 tablets by mouth at bedtime if needed, Historical Med lisinopril-hydroCHLOROthiazide 10-12.5 MG tablet Take 1 tablet by mouth daily., Starting Thu10/10/2024, Until Thu11/09/2024, Historical Med loratadine (Claritin) 10 MG tablet Take 1 tablet by mouth daily., Historical Med meclizine (Antivert) 25 MG tablet every 8 hours., Historical Med montelukast (Singulair) 10 MG tablet Every 24 hours., Starting Thu11/25/2022, Historical Med omeprazole (PriLOSEC) [address] capsule take 1 capsule by mouth once daily ON AN EMPTY STOMACH AT LEAST 30 MINUTES BEFORE EATING, Historical Med pseudoephedrine (Sudafed) 30 MG tablet Take 1 tablet (30 mg) by mouth every 6 hours as needed for congestion., Starting Thu10/14/2024, Normal ramelteon (Rozerem) 8 MG tablet take 1/2 tablet by mouth at bedtime for 2 NIGHTS then take 1 tablet by mouth at bedtime, Historical Med traMADol (Ultram) 50 MG tablet take 1 tablet by mouth every 4 hours if needed, Historical Med traZODone (Desyrel) 50 MG tablet Starting 12/07/2022, Historical Med Allergies[4] I have reviewed the history above as provided by nursing notes. Physical Exam ED Triage Vitals [05/17/25 2208] Temp Heart Rate Resp BP 37 C (98.6 F) 85 22 127/80 SpO2 Temp Source Heart Rate Source Patient Position 97 % Oral Monitor Sitting BP Location FiO2 (%) Right arm -- GENERAL: The patient appears nourished and normally developed. Vital signs as documented. EYES: PERRL. No scleral icterus or orbital trauma noted. HEENT: Mucous membranes moist. Nares patent without copious rhinorrhea. LUNGS: Lungs are clear to auscultation, without any respiratory distress. Tenderness to palpation of the left lateral rib cage. CARDIAC: Rhythm is regular. No murmur appreciated ABDOMEN: Nontender, soft, with no obvious masses, and no peritoneal signs. EXTREMITIES: Non edematous, with no obvious deformities. SKIN: Good color, with no significant rashes. No pallor. NEURO: No obvious neurological deficits, normal sensation and strength bilaterally. Diagnostics Labs: Results for orders placed or performed during the hospital encounter of 05/17/25 Basic metabolic panel Collection Time: 05/17/25 10:33 PM Result Value Ref Range SODIUM 141 136 - 145 mmol/L POTASSIUM 4.1 3.5 - 5.1 mmol/L CHLORIDE 107 98 - 107 mmol/L CARBON DIOXIDE 25 23 - 31 mmol/L UREA NITROGEN 10 9 - 23 mg/dL CREATININE 0.63 0.57 - 1.11 mg/dL GLUCOSE 107 82 - 115 mg/dL CALCIUM 9.1 8.8 - 10.0 mg/dL ANION GAP 9 3 - 13 mmol/L eGFR >90.0 >60.0 mL/min/1.73m*2 CBC auto differential Collection Time: 05/17/25 10:33 PM Result Value Ref Range Auto WBC 11.7 (H) 3.6 - 10.7 10*3/uL RBC 4.16 3.80 - 5.20 10*6/uL Hemoglobin 13.5 11.7 - 16.0 g/dL Hematocrit 39.7 35.0 - 47.0 % MCV 95.4 77.0 - 99.0 fL MCH 32.5 26.0 - 34.0 pg MCHC 34.0 30.5 - 36.0 % RDW 13.2 11.5 - 15.0 % Platelets 371 140 - 440 10*3/uL MPV 8.1 (L) 9.0 - 12.7 fL nRBC 0.0 0.0 - 2.0 /100 WBCs Neutrophils Relative 73.8 38.0 - 82.0 % Lymphocytes Relative 14.2 (L) 15.0 - 45.0 % Monocytes Relative 8.1 5.0 - 13.0 % Eosinophils Relative 3.1 0.0 - 6.0 % Basophils Relative 0.5 0.0 - 2.0 % Immature Grans % 0.3 0.0 - 2.0 % Neutrophils Absolute 8.6 (H) 1.8 - 7.5 10*3/uL Lymphocytes Absolute 1.7 1.0 - 4.3 10*3/uL Monocytes Absolute 1.0 (H) 0.0 - 0.9 10*3/uL Eosinophils Absolute 0.4 0.0 - 0.5 10*3/uL Basophils Absolute 0.1 0.0 - 0.2 10*3/uL Immature Grans Absolute 0.0 <0.1 10*3/uL Serial Troponin, High Sensitivity Collection Time: 05/17/25 10:33 PM Result Value Ref Range Troponin HS Serial Baseline <3 <=14 ng/L ECG 12 lead Collection Time: 05/17/25 10:40 PM Result Value Ref Range Heart Rate 79 bpm QRSD Interval 112 ms QT Interval 407 ms QTC Interval 467 ms P Mayer 80 degrees QRS Mayer 39 degrees T Wave Mayer 61 degrees [place] Interval 149 ms Radiographs: XR chest 1 view Final Result 1. Severe emphysema. 2. No confluent consolidation. Report Dictated on Electronically Signed By: Delmi Sweeney MD Electronically Signed Date/Time: 05/17/2025 11:13 PM EDT Procedures/EKG: EKG Interpreted in [employer] software by myself SCREENINGS EMERGENCY DEPARTMENT COURSE and DIFFERENTIAL DIAGNOSIS/MDM: Vitals: Vitals: 05/17/25 2208 05/17/25 2337 BP: 127/80 133/67 BP Location: Right arm Patient Position: Sitting Pulse: 85 84 Resp: 22 21 Temp: 37 C (98.6 F) TempSrc: Oral SpO2: 97% 97% Weight: 50.3 kg (111 lb) Height: 1.651 m (5' 5) The patient presented with a chief complaint of left-sided rib pain. Vital signs reviewed. On exam, patient has tenderness that is reproducible on the left lateral rib. EKG was obtained to assess for acute coronary syndrome, personally interpreted and shows sinus rhythm without acute ischemic findings. Labs were ordered which showed no evidence of anemia, normal metabolic panel and and undetectable high-sensitivity troponin. Because symptoms have been all day I do not feel that a repeat is indicated. Patient's heart score is 2 points for age, 2 points for risk factors for total score of 4. X-ray of the chest was personally interpreted and shows no evidence of rib fracture, pneumothorax or consolidation. Suspect this is likely developing rib pain associated with rib injury. She was treated with morphine intravenously as well as IV Zofran and topical lidocaine patch. Her symptoms were improving and she was started to feel better. She was weaned to her home 2 L nasal cannula oxygen. Considered pulmonary embolism but I do not suspect this in setting of trauma to the trunk, no evidence of leg swelling or DVT development. I will recommend incentive spirometry which patient states she has at home. I will recommend she takes the doxycycline prescribed by her doctor. Discussed continue oxygen, prescribed Percocet and lidocaine patches for home. Encouraged close follow-up with primary care doctor. Discussed returning if she develops severe worsening symptoms. Diagnoses as of 05/18/25 0200 Rib pain on left side ED Medications managed: Medications morphine injection 4 mg (4 mg IntraVENous Given 05/17/252241) ondansetron (Zofran) injection 4 mg (4 mg IntraVENous Given 05/17/252241) predniSONE (Deltasone) tablet 40 mg (40 mg Oral Given 05/17/252341) Patients symptoms are consistent with sepsis, severe sepsis or septic shock (if yes, use .sepsiscoremeasure) - no Final Impression 1. Rib pain on left side DISPOSITION discharge Comment: Please note this report has been produced using speech recognition software and may contain errors related to that system including errors in grammar, punctuation, and spelling, as well as words and phrases that may be inappropriate. If there are any questions or concerns please feel free to contact the dictating provider for clarification. Jovan Mae, DO [employer] [1] Past Medical History: Diagnosis Date Arthritis Back pain Chronic cervical pain Chronic pain of left hand Hypertension Knee pain, right [2] Past Surgical History: Procedure Laterality Date APPENDECTOMY CARDIAC PROCEDURE 06/01/2019 Non obstructive CAD with mild calcium in the proximal RCA and proximal LAD. ELBOW SURGERY HEMORRHOID SURGERY HIP SURGERY Right 06/11/2019 SHOULDER SURGERY SINUS SURGERY TONSILLECTOMY (HISTORICAL) [3] Social History Socioeconomic History Marital status: Tobacco Use Smoking status: Every Day Current packs/day: 1.00 Types: Cigarettes Smokeless tobacco: Never Vaping Use Vaping status: Never Used Substance and Sexual Activity Alcohol use: Yes Comment: 2 beers couple times a week Drug use: Not Currently Types: Marijuana Social Drivers of Health Housing Stability: Low Risk (05/28/2023) Received from [facility] What is your living situation today?: I have a steady place to live Think about the place you live. Do you have problems with: Choose all that apply.: None of the above [4] Allergies Allergen Reactions Escitalopram Anaphylaxis Levofloxacin Anaphylaxis and Swelling Levofloxacin In D5w Swelling Sulfa Antibiotics Anaphylaxis and Swelling Budesonide Other reaction(s): boils Doxycycline Nausea And Vomiting Codeine Other reaction(s): Heart Attack Sx, chest tightness, Other (See Comments) Chest pain chest pain Tetracycline Other reaction(s): Vomiting Trimethoprim Other reaction(s): Anaphylaxis Penicillins Hives and Rash Other reaction(s): hives Jovan Mae DO 05/18/25 0203 documented in this encounter [facility] 05-17-2025 Physician Emergency department Note Emergency Department Encounter [facility] ED Patient: Sully Perdomo : 1955 Date of Evaluation: 05/17/2025 ED Provider: Jovan Mae DO Chief Complaint Chief Complaint Patient presents with Shortness of Breath NENANA Sully Perdomo is a 69 y.o. female who presents to the emergency department complaining of left rib pain. Patient explains that few days prior she had a fall, striking the left side of her ribs and injuring her head. She was evaluated and was found to have bruised rib. She reportedly did not have any rib fractures, pneumothorax or other severe injuries. Patient reports she had minimal symptoms however today she started having severe pain on the left side. This is worse if she takes a deep breath. She does chronically use oxygen due to history of COPD. She also had increased sputum production and spoke with her doctor who started her on doxycycline, she has not taken any doses of this yet. Additional history obtained from : n/a Barriers to obtaining history from patient: n/a ROS: Review of Systems completed as follows: (Bold = positive, Not bold = negative) GENERAL: fevers, chills, malaise ENT: runny nose, congestion, sore throat, ear pain NEURO: weakness, numbness of tingling, headache CARDIOVASCULAR: chest pain, syncope PULMONARY: shortness of breath, cough, wheezing GASTROINTESTINAL: nausea, vomiting, abdominal pain, diarrhea, constipation, MUSCULOSKELETAL: pain GENITAL/URINARY: dysuria, hematuria, increased urinary frequency, hesitancy, flank pain SKIN: rash, lesions, wound Past History Medical History[1] Surgical History[2] Social History[3] I have reviewed the history above as provided by nursing notes. Medications/Allergies Discharge Medication List as of 05/17/2025 11:37 PM CONTINUE these medications which have NOT CHANGED Details albuterol (2.5 MG/3ML) 0.083% nebulizer solution albuterol sulfate 2.5 mg/3 mL (0.083 %) solution for nebulization, Historical Med albuterol 108 (90 Base) MCG/ACT inhaler every 4 hours., Starting Thu06/26/2022, Historical Med alendronate (Fosamax) 70 MG tablet 1 tablet 30 minutes before the first food, beverage or medicine of the day with plain water Orally Once a week for 84, Historical Med ALPRAZolam (Xanax) 1 MG tablet alprazolam 1 mg tablet, Historical Med amLODIPine (Norvasc) 10 MG tablet Take 10 mg by mouth daily., Starting Thu09/19/2022, Historical Med azithromycin (Zithromax) 250 MG tablet Every 24 hours., Starting Thu11/25/2022, Historical Med busPIRone (Buspar) 10 MG tablet Starting Thu12/07/2022, Historical Med cefdinir (Omnicef) 300 MG capsule Take 300 mg by mouth 2 times daily., Starting Thu05/22/2022, Historical Med clarithromycin (Biaxin) 500 MG tablet clarithromycin 500 mg tablet, Historical Med clindamycin (Cleocin) 150 MG capsule take 1 capsule by mouth twice a day until finished, Historical Med clonazePAM (KlonoPIN) 0.5 MG tablet Take 0.5 mg by mouth Nightly., Starting Thu11/12/2022, Historical Med cyclobenzaprine (Flexeril) 5 MG tablet every 12 hours., Historical Med dexAMETHasone (Decadron) 6 MG tablet Take 1 tablet (6 mg) by mouth daily for 5 days., Starting Thu10/14/2024, Until Thu10/19/2024, Normal doxycycline (Vibra-Tabs) 100 MG tablet Take 100 mg by mouth 2 times daily., Starting Thu12/20/2021, Historical Med escitalopram (Lexapro) 10 MG tablet Starting Thu12/07/2022, Historical Med fluticasone (Flonase) 50 MCG/ACT nasal spray INSTILL 2 SPRAYS INTO EACH NOSTRIL DAILY, Starting 02/20/2025, Normal Prbwyucjhla-Ngexwbmrs-Lftfix (Trelegy Ellipta) 100-62.5-25 MCG/ACT aerosol powder 1 puff Every 24 hours., Historical Med guaiFENesin (Mucinex) 600 MG 12 hr tablet Take 1 tablet by mouth every 12 hours as needed., Historical Med HYDROcodone-acetaminophen ([place]) 5-325 MG tablet take 1 tablet by mouth every 4 to 6 hours WHILE AWAKE if needed for POST OP PAIN for 3 days, Historical Med hydrOXYzine HCl (Atarax) 25 MG tablet take 3 tablets by mouth at bedtime if needed, Historical Med lisinopril-hydroCHLOROthiazide 10-12.5 MG tablet Take 1 tablet by mouth daily., Starting Thu10/10/2024, Until Thu11/09/2024, Historical Med loratadine (Claritin) 10 MG tablet Take 1 tablet by mouth daily., Historical Med meclizine (Antivert) 25 MG tablet every 8 hours., Historical Med montelukast (Singulair) 10 MG tablet Every 24 hours., Starting Thu11/25/2022, Historical Med omeprazole (PriLOSEC) [address] capsule take 1 capsule by mouth once daily ON AN EMPTY STOMACH AT LEAST 30 MINUTES BEFORE EATING, Historical Med pseudoephedrine (Sudafed) 30 MG tablet Take 1 tablet (30 mg) by mouth every 6 hours as needed for congestion., Starting Thu10/14/2024, Normal ramelteon (Rozerem) 8 MG tablet take 1/2 tablet by mouth at bedtime for 2 NIGHTS then take 1 tablet by mouth at bedtime, Historical Med traMADol (Ultram) 50 MG tablet take 1 tablet by mouth every 4 hours if needed, Historical Med traZODone (Desyrel) 50 MG tablet Starting 12/07/2022, Historical Med Allergies[4] I have reviewed the history above as provided by nursing notes. Physical Exam ED Triage Vitals [05/17/252207] Temp Heart Rate Resp BP 37 C (98.6 F) 85 22 127/80 SpO2 Temp Source Heart Rate Source Patient Position 97 % Oral Monitor Sitting BP Location FiO2 (%) Right arm -- GENERAL: The patient appears nourished and normally developed. Vital signs as documented. EYES: PERRL. No scleral icterus or orbital trauma noted. HEENT: Mucous membranes moist. Nares patent without copious rhinorrhea. LUNGS: Lungs are clear to auscultation, without any respiratory distress. Tenderness to palpation of the left lateral rib cage. CARDIAC: Rhythm is regular. No murmur appreciated ABDOMEN: Nontender, soft, with no obvious masses, and no peritoneal signs. EXTREMITIES: Non edematous, with no obvious deformities. SKIN: Good color, with no significant rashes. No pallor. NEURO: No obvious neurological deficits, normal sensation and strength bilaterally. Diagnostics Labs: Results for orders placed or performed during the hospital encounter of 05/17/25 Basic metabolic panel Collection Time: 05/17/25 10:33 PM Result Value Ref Range SODIUM 141 136 - 145 mmol/L POTASSIUM 4.1 3.5 - 5.1 mmol/L CHLORIDE 107 98 - 107 mmol/L CARBON DIOXIDE 25 23 - 31 mmol/L UREA NITROGEN 10 9 - 23 mg/dL CREATININE 0.63 0.57 - 1.11 mg/dL GLUCOSE 107 82 - 115 mg/dL CALCIUM 9.1 8.8 - 10.0 mg/dL ANION GAP 9 3 - 13 mmol/L eGFR >90.0 >60.0 mL/min/1.73m*2 CBC auto differential Collection Time: 05/17/25 10:33 PM Result Value Ref Range Auto WBC 11.7 (H) 3.6 - 10.7 10*3/uL RBC 4.16 3.80 - 5.20 10*6/uL Hemoglobin 13.5 11.7 - 16.0 g/dL Hematocrit 39.7 35.0 - 47.0 % MCV 95.4 77.0 - 99.0 fL MCH 32.5 26.0 - 34.0 pg MCHC 34.0 30.5 - 36.0 % RDW 13.2 11.5 - 15.0 % Platelets 371 140 - 440 10*3/uL MPV 8.1 (L) 9.0 - 12.7 fL nRBC 0.0 0.0 - 2.0 /100 WBCs Neutrophils Relative 73.8 38.0 - 82.0 % Lymphocytes Relative 14.2 (L) 15.0 - 45.0 % Monocytes Relative 8.1 5.0 - 13.0 % Eosinophils Relative 3.1 0.0 - 6.0 % Basophils Relative 0.5 0.0 - 2.0 % Immature Grans % 0.3 0.0 - 2.0 % Neutrophils Absolute 8.6 (H) 1.8 - 7.5 10*3/uL Lymphocytes Absolute 1.7 1.0 - 4.3 10*3/uL Monocytes Absolute 1.0 (H) 0.0 - 0.9 10*3/uL Eosinophils Absolute 0.4 0.0 - 0.5 10*3/uL Basophils Absolute 0.1 0.0 - 0.2 10*3/uL Immature Grans Absolute 0.0 <0.1 10*3/uL Serial Troponin, High Sensitivity Collection Time: 05/17/25 10:33 PM Result Value Ref Range Troponin HS Serial Baseline <3 <=14 ng/L ECG 12 lead Collection Time: 05/17/25 10:40 PM Result Value Ref Range Heart Rate 79 bpm QRSD Interval 112 ms QT Interval 407 ms QTC Interval 467 ms P Mayer 80 degrees QRS Mayer 39 degrees T Wave Mayer 61 degrees [place] Interval 149 ms Radiographs: XR chest 1 view Final Result 1. Severe emphysema. 2. No confluent consolidation. Report Dictated on Electronically Signed By: Delmi Sweeney MD Electronically Signed Date/Time: 05/17/2025 11:13 PM EDT Procedures/EKG: EKG Interpreted in [employer] software by myself SCREENINGS EMERGENCY DEPARTMENT COURSE and DIFFERENTIAL DIAGNOSIS/MDM: Vitals: Vitals: 05/17/25 2208 05/17/25 2337 BP: 127/80 133/67 BP Location: Right arm Patient Position: Sitting Pulse: 85 84 Resp: 22 21 Temp: 37 C (98.6 F) TempSrc: Oral SpO2: 97% 97% Weight: 50.3 kg (111 lb) Height: 1.651 m (5' 5) The patient presented with a chief complaint of left-sided rib pain. Vital signs reviewed. On exam, patient has tenderness that is reproducible on the left lateral rib. EKG was obtained to assess for acute coronary syndrome, personally interpreted and shows sinus rhythm without acute ischemic findings. Labs were ordered which showed no evidence of anemia, normal metabolic panel and and undetectable high-sensitivity troponin. Because symptoms have been all day I do not feel that a repeat is indicated. Patient's heart score is 2 points for age, 2 points for risk factors for total score of 4. X-ray of the chest was personally interpreted and shows no evidence of rib fracture, pneumothorax or consolidation. Suspect this is likely developing rib pain associated with rib injury. She was treated with morphine intravenously as well as IV Zofran and topical lidocaine patch. Her symptoms were improving and she was started to feel better. She was weaned to her home 2 L nasal cannula oxygen. Considered pulmonary embolism but I do not suspect this in setting of trauma to the trunk, no evidence of leg swelling or DVT development. I will recommend incentive spirometry which patient states she has at home. I will recommend she takes the doxycycline prescribed by her doctor. Discussed continue oxygen, prescribed Percocet and lidocaine patches for home. Encouraged close follow-up with primary care doctor. Discussed returning if she develops severe worsening symptoms. Diagnoses as of 05/18/25 0200 Rib pain on left side ED Medications managed: Medications morphine injection 4 mg (4 mg IntraVENous Given 05/17/252241) ondansetron (Zofran) injection 4 mg (4 mg IntraVENous Given 05/17/252241) predniSONE (Deltasone) tablet 40 mg (40 mg Oral Given 05/17/25 2342) Patients symptoms are consistent with sepsis, severe sepsis or septic shock (if yes, use .sepsiscoremeasure) - no Final Impression 1. Rib pain on left side DISPOSITION discharge Comment: Please note this report has been produced using speech recognition software and may contain errors related to that system including errors in grammar, punctuation, and spelling, as well as words and phrases that may be inappropriate. If there are any questions or concerns please feel free to contact the dictating provider for clarification. Jovan Mae, [facility] [1] Past Medical History: Diagnosis Date Arthritis Back pain Chronic cervical pain Chronic pain of left hand Hypertension Knee pain, right [2] Past Surgical History: Procedure Laterality Date APPENDECTOMY CARDIAC PROCEDURE 06/01/2019 Non obstructive CAD with mild calcium in the proximal RCA and proximal LAD. ELBOW SURGERY HEMORRHOID SURGERY HIP SURGERY Right 06/11/2019 SHOULDER SURGERY SINUS SURGERY TONSILLECTOMY (HISTORICAL) [3] Social History Socioeconomic History Marital status: Tobacco Use Smoking status: Every Day Current packs/day: 1.00 Types: Cigarettes Smokeless tobacco: Never Vaping Use Vaping status: Never Used Substance and Sexual Activity Alcohol use: Yes Comment: 2 beers couple times a week Drug use: Not Currently Types: Marijuana Social Drivers of Health Housing Stability: Low Risk (05/28/2023) [facility] What is your living situation today?: I have a steady place to live Think about the place you live. Do you have problems with: Choose all that apply.: None of the above [4] Allergies Allergen Reactions Escitalopram Anaphylaxis Levofloxacin Anaphylaxis and Swelling Levofloxacin In D5w Swelling Sulfa Antibiotics Anaphylaxis and Swelling Budesonide Other reaction(s): boils Doxycycline Nausea And Vomiting Codeine Other reaction(s): Heart Attack Sx, chest tightness, Other (See Comments) Chest pain chest pain Tetracycline Other reaction(s): Vomiting Trimethoprim Other reaction(s): Anaphylaxis Penicillins Hives and Rash Other reaction(s): hives Jovan Mae DO 05/18/25 0203 [facility] 05-14-2025 Emergency department Note EMERGENCY DEPARTMENT ENCOUNTER Pt Name: Sully Perdomo Birthdate 1955 Date of evaluation: 05/14/2025 CHIEF COMPLAINT Chief Complaint Patient presents with Fall HISTORY OF PRESENT ILLNESS HPI Sully Perdomo is a 69 y.o. female who presents to the emergency department after falling. She injured her head left side of the ribs. She was able to get up and walk after she fell. She is on oxygen at nighttime 2 L nasal cannula. She has shortness of breath. Cough with yellow sputum production. Has pain in her left flank. Pain gets severe. No nausea no vomiting. No diarrhea no constipation. She did have some alcohol tonight. She was hypoxemic to 80% on room air. REVIEW OF SYSTEMS Review of Systems Past Medical History: No date: Arthritis No date: Back pain No date: Chronic cervical pain No date: Chronic pain of left hand No date: Hypertension No date: Knee pain, right Past Surgical History: No date: APPENDECTOMY 06/01/2019: CARDIAC PROCEDURE Comment: Non obstructive CAD with mild calcium in the proximal RCA and proximal LAD. No date: ELBOW SURGERY No date: HEMORRHOID SURGERY 06/11/2019: HIP SURGERY; Right No date: SHOULDER SURGERY No date: SINUS SURGERY No date: TONSILLECTOMY (HISTORICAL) CURRENT MEDICATIONS Discharge Medication List as of 05/14/2025 4:10 AM CONTINUE these medications which have NOT CHANGED Details albuterol (2.5 MG/3ML) 0.083% nebulizer solution albuterol sulfate 2.5 mg/3 mL (0.083 %) solution for nebulization, Historical Med albuterol 108 (90 Base) MCG/ACT inhaler every 4 hours., Starting Thu06/26/2022, Historical Med alendronate (Fosamax) 70 MG tablet 1 tablet 30 minutes before the first food, beverage or medicine of the day with plain water Orally Once a week for 84, Historical Med ALPRAZolam (Xanax) 1 MG tablet alprazolam 1 mg tablet, Historical Med amLODIPine (Norvasc) 10 MG tablet Take 10 mg by mouth daily., Starting Thu09/19/2022, Historical Med azithromycin (Zithromax) 250 MG tablet Every 24 hours., Starting Thu11/25/2022, Historical Med busPIRone (Buspar) 10 MG tablet Starting Thu12/07/2022, Historical Med cefdinir (Omnicef) 300 MG capsule Take 300 mg by mouth 2 times daily., Starting Thu05/22/2022, Historical Med clarithromycin (Biaxin) 500 MG tablet clarithromycin 500 mg tablet, Historical Med clindamycin (Cleocin) 150 MG capsule take 1 capsule by mouth twice a day until finished, Historical Med clonazePAM (KlonoPIN) 0.5 MG tablet Take 0.5 mg by mouth Nightly., Starting Thu11/12/2022, Historical Med cyclobenzaprine (Flexeril) 5 MG tablet every 12 hours., Historical Med dexAMETHasone (Decadron) 6 MG tablet Take 1 tablet (6 mg) by mouth daily for 5 days., Starting Thu10/14/2024, Until Thu10/19/2024, Normal doxycycline (Vibra-Tabs) 100 MG tablet Take 100 mg by mouth 2 times daily., Starting Thu12/20/2021, Historical Med escitalopram (Lexapro) 10 MG tablet Starting Thu12/07/2022, Historical Med fluticasone (Flonase) 50 MCG/ACT nasal spray INSTILL 2 SPRAYS INTO EACH NOSTRIL DAILY, Starting Thu02/20/2025, Normal Sowstqcclvu-Nwtojfiht-Vgrrpo (Trelegy Ellipta) 100-62.5-25 MCG/ACT aerosol powder 1 puff Every 24 hours., Historical Med guaiFENesin (Mucinex) 600 MG 12 hr tablet Take 1 tablet by mouth every 12 hours as needed., Historical Med HYDROcodone-acetaminophen ([place]) 5-325 MG tablet take 1 tablet by mouth every 4 to 6 hours WHILE AWAKE if needed for POST OP PAIN for 3 days, Historical Med hydrOXYzine HCl (Atarax) 25 MG tablet take 3 tablets by mouth at bedtime if needed, Historical Med lisinopril-hydroCHLOROthiazide 10-12.5 MG tablet Take 1 tablet by mouth daily., Starting Thu10/10/2024, Until Thu11/09/2024, Historical Med loratadine (Claritin) 10 MG tablet Take 1 tablet by mouth daily., Historical Med meclizine (Antivert) 25 MG tablet every 8 hours., Historical Med montelukast (Singulair) 10 MG tablet Every 24 hours., Starting Thu11/25/2022, Historical Med omeprazole (PriLOSEC) [address] capsule take 1 capsule by mouth once daily ON AN EMPTY STOMACH AT LEAST 30 MINUTES BEFORE EATING, Historical Med oxyCODONE-acetaminophen (Percocet) 5-325 MG tablet take 1 tablet by mouth every 4 to 6 hours if needed FOR POST-OP PAIN WHILE AWAKE, Historical Med pseudoephedrine (Sudafed) 30 MG tablet Take 1 tablet (30 mg) by mouth every 6 hours as needed for congestion., Starting Thu10/14/2024, Normal ramelteon (Rozerem) 8 MG tablet take 1/2 tablet by mouth at bedtime for 2 NIGHTS then take 1 tablet by mouth at bedtime, Historical Med traMADol (Ultram) 50 MG tablet take 1 tablet by mouth every 4 hours if needed, Historical Med traZODone (Desyrel) 50 MG tablet Starting 12/07/2022, Historical Med ALLERGIES Escitalopram, Levofloxacin, Levofloxacin in d5w, Sulfa antibiotics, Budesonide, Doxycycline, Codeine, Tetracycline, Trimethoprim, and Penicillins SOCIAL HISTORY Social History Socioeconomic History Marital status: Spouse name: Not on file Number of children: Not on file Years of education: Not on file Highest education level: Not on file Occupational History Not on file Tobacco Use Smoking status: Every Day Current packs/day: 1.00 Types: Cigarettes Smokeless tobacco: Never Vaping Use Vaping status: Never Used Substance and Sexual Activity Alcohol use: Yes Comment: 2 beers couple times a week Drug use: Not Currently Types: Marijuana Sexual activity: Not on file Other Topics Concern Not on file Social History Narrative Not on file Social Drivers of Health Financial Resource Strain: Not on file Food Insecurity: Not on file Transportation Needs: Not on file Physical Activity: Not on file Stress: Not on file Social Connections: Not on file Intimate Partner Violence: Not on file Housing Stability: Low Risk (05/28/2023) Received from [facility] What is your living situation today?: I have a steady place to live Think about the place you live. Do you have problems with: Choose all that apply.: None of the above PHYSICAL EXAM Vitals: 05/14/25 0151 BP: 139/64 BP Location: Right arm Patient Position: Sitting Pulse: 85 Resp: 16 Temp: 37 C (98.6 F) TempSrc: Oral SpO2: 94% Weight: 50.3 kg (111 lb) Height: 1.651 m (5' 5) Physical Exam Vitals and nursing note reviewed. Constitutional: Appearance: She is underweight. HENT: Head: Right periorbital erythema present. Eyes: Extraocular Movements: Extraocular movements intact. Conjunctiva/sclera: Conjunctivae normal. Pupils: Right eye: Pupil is reactive. Left eye: Pupil is reactive. Cardiovascular: Rate and Rhythm: Normal rate. Heart sounds: Normal heart sounds. Pulmonary: Breath sounds: Normal breath sounds. Abdominal: General: Bowel sounds are normal. There is no distension. Palpations: Abdomen is soft. Tenderness: There is abdominal tenderness (left flank). There is left CVA tenderness. There is no right CVA tenderness or guarding. Hernia: No hernia is present. Musculoskeletal: Cervical back: Decreased range of motion. Skin: General: Skin is warm. Coloration: Skin is not jaundiced. Neurological: Mental Status: She is alert and oriented to person, place, and time. Cranial Nerves: Cranial nerves 2-12 are intact. Sensory: Sensation is intact. Motor: Motor function is intact. Coordination: Coordination is intact. Deep Tendon Reflexes: Reflexes are normal and symmetric. Psychiatric: Behavior: Behavior normal. Thought Content: Thought content normal. SCREENINGS Medical decision making DIAGNOSTIC RESULTS Procedures/EKG: Physician EKG interpretation can be found in [facility] if done Radiologist results reviewed: CT chest abdomen pelvis with contrast Final Result 1. No intracranial hemorrhage. 2. Chronic sinusitis. CT C-SPINE: 1 mm axial cuts are obtained through the cervical spine without IV contrast. Sagittal and coronal reconstructions are reviewed. In addition, 3D rendering is performed by me and reviewed on the [employer] Workstation. Dose reduction was employed with automated exposure control. The examination is compared to a previous MRI dated 04/28/2025. FINDINGS: There is a mild anterolisthesis C4 on C5. The slip is approximately 3 mm. Mild disc space narrowing and spurring are noted at C5-6 and C6-7. Vertebral body heights are maintained. There is no evidence of fracture or traumatic subluxation. IMPRESSION: 1. Moderate degenerative changes. These are stable when compared to the previous MRI. 2. No C-spine fracture or traumatic subluxation. CT CHEST: 1 mm axial cuts through the chest are provided with 75 mL Isovue IV contrast. Dose reduction was employed with automated exposure control. The examination is compared to a previous study dated 07/09/2018. FINDINGS: Advanced emphysematous changes are noted diffusely. Centrilobular emphysema is most pronounced in the lung apices. There are no focal infiltrates. Old healed rib fractures are noted bilaterally. There is no pneumothorax. The heart size is normal. The pulmonary arteries are enlarged consistent with chronic pulmonary hypertension. Mild coronary arterial calcifications are evident. There is no significant mediastinal lymphadenopathy. IMPRESSION: 1. Advanced COPD with evidence of chronic pulmonary hypertension. 2. No focal infiltrates. 3. Old bilateral healed rib fractures. 4. No pneumothorax. CT ABDOMEN: 3 mm axial cuts from the dome of the diaphragm through the iliac crests are provided with 75 mL Isovue IV contrast. Dose reduction was employed with automated exposure control. There are no comparison studies. FINDINGS: There is a small hiatal hernia. The liver and spleen are homogeneous in their attenuation without focal abnormality. The pancreas and adrenal glands are unremarkable. Both kidneys are identified in their cortical phase. Nephrograms enhance symmetrically without abnormality. No free fluid is seen within the abdomen. IMPRESSION: 1. No internal organ injury. CT PELVIS: 3 mm axial cuts from the iliac crests through the symphysis pubis are provided with 75 mL Isovue IV contrast. Dose reduction was employed with automated exposure control. There are no comparison studies. FINDINGS: Air and stool are identified within the colon to the level of the rectum. There is no evidence of obstruction. No free fluid is seen within the pelvis. Sagittal reconstructed images of the spine demonstrate an old L2 compression fracture. This has lost approximately 40% of its height. IMPRESSION: 1. No intracranial hemorrhage. 2. Chronic sinusitis. 3. Moderate degenerative changes in the cervical spine. These are stable when compared to the previous MRI. 4. No C-spine fracture or traumatic subluxation. 5. Advanced COPD with evidence of chronic pulmonary hypertension. 6. No focal infiltrates. 7. Old bilateral healed rib fractures. 8. No pneumothorax. 9. No internal organ injury. 10. Old L2 compression fracture. Report Dictated on Electronically Signed By: Sergio Cunningham MD Electronically Signed Date/Time: 05/14/2025 3:[address] cervical spine wo IV contrast Final Result 1. No intracranial hemorrhage. 2. Chronic sinusitis. CT C-SPINE: 1 mm axial cuts are obtained through the cervical spine without IV contrast. Sagittal and coronal reconstructions are reviewed. In addition, 3D rendering is performed by nc and reviewed on the [employer] Workstation. Dose reduction was employed with automated exposure control. The examination is compared to a previous MRI dated 04/28/2025. FINDINGS: There is a mild anterolisthesis C4 on C5. The slip is approximately 3 mm. Mild disc space narrowing and spurring are noted at C5-6 and C6-7. Vertebral body heights are maintained. There is no evidence of fracture or traumatic subluxation. IMPRESSION: 1. Moderate degenerative changes. These are stable when compared to the previous MRI. 2. No C-spine fracture or traumatic subluxation. CT CHEST: 1 mm axial cuts through the chest are provided with 75 mL Isovue IV contrast. Dose reduction was employed with automated exposure control. The examination is compared to a previous study dated 07/09/2018. FINDINGS: Advanced emphysematous changes are noted diffusely. Centrilobular emphysema is most pronounced in the lung apices. There are no focal infiltrates. Old healed rib fractures are noted bilaterally. There is no pneumothorax. The heart size is normal. The pulmonary arteries are enlarged consistent with chronic pulmonary hypertension. Mild coronary arterial calcifications are evident. There is no significant mediastinal lymphadenopathy. IMPRESSION: 1. Advanced COPD with evidence of chronic pulmonary hypertension. 2. No focal infiltrates. 3. Old bilateral healed rib fractures. 4. No pneumothorax. CT ABDOMEN: 3 mm axial cuts from the dome of the diaphragm through the iliac crests are provided with 75 mL Isovue IV contrast. Dose reduction was employed with automated exposure control. There are no comparison studies. FINDINGS: There is a small hiatal hernia. The liver and spleen are homogeneous in their attenuation without focal abnormality. The pancreas and adrenal glands are unremarkable. Both kidneys are identified in their cortical phase. Nephrograms enhance symmetrically without abnormality. No free fluid is seen within the abdomen. IMPRESSION: 1. No internal organ injury. CT PELVIS: 3 mm axial cuts from the iliac crests through the symphysis pubis are provided with 75 mL Isovue IV contrast. Dose reduction was employed with automated exposure control. There are no comparison studies. FINDINGS: Air and stool are identified within the colon to the level of the rectum. There is no evidence of obstruction. No free fluid is seen within the pelvis. Sagittal reconstructed images of the spine demonstrate an old L2 compression fracture. This has lost approximately 40% of its height. IMPRESSION: 1. No intracranial hemorrhage. 2. Chronic sinusitis. 3. Moderate degenerative changes in the cervical spine. These are stable when compared to the previous MRI. 4. No C-spine fracture or traumatic subluxation. 5. Advanced COPD with evidence of chronic pulmonary hypertension. 6. No focal infiltrates. 7. Old bilateral healed rib fractures. 8. No pneumothorax. 9. No internal organ injury. 10. Old L2 compression fracture. Report Dictated on Electronically Signed By: Sergio Cunningham MD Electronically Signed Date/Time: 05/14/2025 3:[address] head wo IV contrast Final Result 1. No intracranial hemorrhage. 2. Chronic sinusitis. CT C-SPINE: 1 mm axial cuts are obtained through the cervical spine without IV contrast. Sagittal and coronal reconstructions are reviewed. In addition, 3D rendering is performed by nc and reviewed on the [employer] Workstation. Dose reduction was employed with automated exposure control. The examination is compared to a previous MRI dated 04/28/2025. FINDINGS: There is a mild anterolisthesis C4 on C5. The slip is approximately 3 mm. Mild disc space narrowing and spurring are noted at C5-6 and C6-7. Vertebral body heights are maintained. There is no evidence of fracture or traumatic subluxation. IMPRESSION: 1. Moderate degenerative changes. These are stable when compared to the previous MRI. 2. No C-spine fracture or traumatic subluxation. CT CHEST: 1 mm axial cuts through the chest are provided with 75 mL Isovue IV contrast. Dose reduction was employed with automated exposure control. The examination is compared to a previous study dated 07/09/2018. FINDINGS: Advanced emphysematous changes are noted diffusely. Centrilobular emphysema is most pronounced in the lung apices. There are no focal infiltrates. Old healed rib fractures are noted bilaterally. There is no pneumothorax. The heart size is normal. The pulmonary arteries are enlarged consistent with chronic pulmonary hypertension. Mild coronary arterial calcifications are evident. There is no significant mediastinal lymphadenopathy. IMPRESSION: 1. Advanced COPD with evidence of chronic pulmonary hypertension. 2. No focal infiltrates. 3. Old bilateral healed rib fractures. 4. No pneumothorax. CT ABDOMEN: 3 mm axial cuts from the dome of the diaphragm through the iliac crests are provided with 75 mL Isovue IV contrast. Dose reduction was employed with automated exposure control. There are no comparison studies. FINDINGS: There is a small hiatal hernia. The liver and spleen are homogeneous in their attenuation without focal abnormality. The pancreas and adrenal glands are unremarkable. Both kidneys are identified in their cortical phase. Nephrograms enhance symmetrically without abnormality. No free fluid is seen within the abdomen. IMPRESSION: 1. No internal organ injury. CT PELVIS: 3 mm axial cuts from the iliac crests through the symphysis pubis are provided with 75 mL Isovue IV contrast. Dose reduction was employed with automated exposure control. There are no comparison studies. FINDINGS: Air and stool are identified within the colon to the level of the rectum. There is no evidence of obstruction. No free fluid is seen within the pelvis. Sagittal reconstructed images of the spine demonstrate an old L2 compression fracture. This has lost approximately 40% of its height. IMPRESSION: 1. No intracranial hemorrhage. 2. Chronic sinusitis. 3. Moderate degenerative changes in the cervical spine. These are stable when compared to the previous MRI. 4. No C-spine fracture or traumatic subluxation. 5. Advanced COPD with evidence of chronic pulmonary hypertension. 6. No focal infiltrates. 7. Old bilateral healed rib fractures. 8. No pneumothorax. 9. No internal organ injury. 10. Old L2 compression fracture. Report Dictated on Electronically Signed By: Sergio Cunningham MD Electronically Signed Date/Time: 05/14/2025 3:59 AM EDT LABS: Labs Reviewed CBC WITH AUTO DIFFERENTIAL - Abnormal Result Value Auto WBC 9.8 RBC 4.03 Hemoglobin 13.2 Hematocrit 38.0 MCV 94.3 MCH 32.8 MCHC 34.7 RDW 13.1 Platelets 363 MPV 8.1 (*) nRBC 0.0 Neutrophils Relative 68.6 Lymphocytes Relative 18.7 Monocytes Relative 9.2 Eosinophils Relative 2.6 Basophils Relative 0.6 Immature Grans % 0.3 Neutrophils Absolute 6.7 Lymphocytes Absolute 1.8 Monocytes Absolute 0.9 Eosinophils Absolute 0.3 Basophils Absolute 0.1 Immature Grans Absolute 0.0 COMPREHENSIVE METABOLIC PANEL - Abnormal SODIUM 142 POTASSIUM 4.7 CHLORIDE 109 (*) CARBON DIOXIDE 27 ANION GAP 6 UREA NITROGEN 8 (*) CREATININE 0.59 GLUCOSE 101 CALCIUM 9.1 AST (SGOT) 23 ALT 17 ALKALINE PHOSPHATASE 57 ALBUMIN 3.8 BILIRUBIN, TOTAL 0.2 TOTAL PROTEIN 6.7 eGFR >90.0 PROTHROMBIN TIME - Abnormal PROTHROMBIN TIME 9.9 INR <0.9 (*) LIPASE - Normal LIPASE 49 COMPLETE URINALYSIS WITH REFLEX TO CULTURE - Normal Color, Urine Colorless Clarity, Urine Clear pH, Urine 5.5 Leukocytes, Urine Negative Nitrite, Urine Negative Protein, Urine Negative Glucose, Urine Normal Bilirubin, Urine Negative Ketones, Urine Negative Urobilinogen, Urine Normal Blood, Urine Negative SPECIFIC GRAVITY OF URINE (NUMERIC) 1.006 Narrative: A specimen with <=10 WBC is not consistent with inflammation. This specimen will not reflex to a urine culture. LACTIC ACID WITH REFLEX - Normal LACTIC ACID 1.0 APTT - Normal APTT 25.4 Narrative: NOTE: The therapeutic time for Heparin anticoagulation, based on Xa activity inhibition, is an APTT of 46-80 seconds. NT PRO BNP - Normal NT PRO BNP 34 BLOOD CULTURE BLOOD GAS, VENOUS ([facility] AND [facility]) pH 7.349 pCO2 48 pO2 45 BASE EXCESS 1.0 HCO3 26.3 TCO2 28.0 O2 Saturation 78.0 Source Of Oxygen Nasal Cannula (LPM) Amount Of Oxygen 2 RADIOLOGY : Medications ordered: Medications HYDROcodone-acetaminophen ([place]) 5-325 MG per tablet 1 tablet (1 tablet Oral Given 05/14/25 0244) iopamidol (Isovue-370) 76 % injection 75 mL (75 mL IntraVENous Given 05/14/25 0345) HYDROcodone-acetaminophen ([place]) 5-325 MG per tablet 1 tablet (1 tablet Oral Given 05/14/25 0415) ED Course as of 05/14/25431 Sun May 14, 2025 0205 XR chest 2 views (11/04/24 0948) Prior medical records were reviewed: ordered by pcp coreen [NM] 0205 XR chest 2 views (11/28/22 1449) Prior medical records were reviewed: nad [NM] 0205 XR chest 2 views (11/28/22 1449) Prior medical records were reviewed: nad [NM] ED Course User Index [NM] Harpal Cuevas MD Diagnoses as of 05/14/25431 Fall, initial encounter Head injury, initial encounter Contusion of rib on left side, initial encounter * No order type specified * Our workup consisted of ordering/reviewing: Orders Placed This Encounter Procedures Blood culture Site #1 - Suspected Infection CT cervical spine wo IV contrast CT head wo IV contrast CT chest abdomen pelvis with contrast CBC auto differential Comprehensive metabolic panel Lipase Urinalysis complete with reflex to Culture Blood gas, venous (Vicki and Green) Lactic acid with reflex Protime-INR APTT NT PRO BNP Pulse Oximetry Vital Signs Cardiac monitoring Oxygen Therapy - Device: Nasal Cannula; Indication for O2: SpO2 less than 90%; Initial Flow Rate (L/Min) (1-6 L/Min): 2; SpO2 Goal (%): 90-96%; Initiate Oxygen Titration: Yes; Should O2 be decreased below initial flow rate to room air? Yes ECG 12 lead Insert peripheral IV MDM: 69 y.o. presented with injury. The differential diagnosis considered: Intracranial hemorrhage, C-spine fracture, rib fracture, intra-abdominal injury, splenic injury, kidney injury, blood gas derangement, lung contusion Patient's care was impacted by comorbidity of chronic respiratory failure, likely contributing to some of the hypoxemia ordered oxygen. Patient's care was significantly impacted by social determinants of health including Drug addiction, nicotine addiction increasing her risk for pneumothorax hence chest imaging study was ordered CT head interpreted by me: No intracranial hemorrhage no skull fracture. CT C-spine interpreted by me: Spondylolisthesis anterior mild. Otherwise no acute fracture CT chest abdomen pelvis interpreted by me: No pneumothorax no acute rib fracture no bowel perforation. Prescription medications considered but not prescribed: oxycodone po. Will trial alternative to opiates. . REVAL: CRITICAL CARE TIME PROCEDURES: Procedures FINAL IMPRESSION 1. Head injury, initial encounter 2. Fall, initial encounter 3. Contusion of rib on left side, initial encounter DISPOSITION/PLAN DISPOSITION Discharge 05/14/2025 04:07:42 AM PATIENT REFERRED TO: Jeremiah Martínez MD [address] [place], [place] [id number] In 11 days I prescribed: Discharge Medication List as of 05/14/2025 4:10 AM (Comment: this report has been produced using speech recognition software and may contain errors related to that system including errors in grammar, punctuation, and spelling, as well as words and phrases) Harpal Cuevas MD (electronically signed) Harpal Cuevas MD 05/14/25 0432 The patient was brought in via ambulance. She is complaining of having a fall at home. She stated she tripped over her oxygen tubing and fell to the floor. She stated her left ribs are hurting. She is observed with a cough that is chronic per patient. The patient was placed on 2 liters of oxygen due to spo2 80% on room air. The patient stated typically she is 94% on room air and only uses oxygen at bed time. documented in this encounter [facility] 05-14-2025 Emergency department Triage note The patient was brought in via ambulance. She is complaining of having a fall at home. She stated she tripped over her oxygen tubing and fell to the floor. She stated her left ribs are hurting. She is observed with a cough that is chronic per patient. The patient was placed on 2 liters of oxygen due to spo2 80% on room air. The patient stated typically she is 94% on room air and only uses oxygen at bed time. [facility] 05-14-2025 Physician Emergency department Note EMERGENCY DEPARTMENT ENCOUNTER Pt Name: Sully Perdomo Birthdate 1955 Date of evaluation: 05/14/2025 CHIEF COMPLAINT Chief Complaint Patient presents with Fall HISTORY OF PRESENT ILLNESS HPI Sully Perdomo is a 69 y.o. female who presents to the emergency department after falling. She injured her head left side of the ribs. She was able to get up and walk after she fell. She is on oxygen at nighttime 2 L nasal cannula. She has shortness of breath. Cough with yellow sputum production. Has pain in her left flank. Pain gets severe. No nausea no vomiting. No diarrhea no constipation. She did have some alcohol tonight. She was hypoxemic to 80% on room air. REVIEW OF SYSTEMS Review of Systems Past Medical History: No date: Arthritis No date: Back pain No date: Chronic cervical pain No date: Chronic pain of left hand No date: Hypertension No date: Knee pain, right Past Surgical History: No date: APPENDECTOMY 06/01/2019: CARDIAC PROCEDURE Comment: Non obstructive CAD with mild calcium in the proximal RCA and proximal LAD. No date: ELBOW SURGERY No date: HEMORRHOID SURGERY 06/11/2019: HIP SURGERY; Right No date: SHOULDER SURGERY No date: SINUS SURGERY No date: TONSILLECTOMY (HISTORICAL) CURRENT MEDICATIONS Discharge Medication List as of 05/14/2025 4:10 AM CONTINUE these medications which have NOT CHANGED Details albuterol (2.5 MG/3ML) 0.083% nebulizer solution albuterol sulfate 2.5 mg/3 mL (0.083 %) solution for nebulization, Historical Med albuterol 108 (90 Base) MCG/ACT inhaler every 4 hours., Starting Radha 06/26/2022, Historical Med alendronate (Fosamax) 70 MG tablet 1 tablet 30 minutes before the first food, beverage or medicine of the day with plain water Orally Once a week for 84, Historical Med ALPRAZolam (Xanax) 1 MG tablet alprazolam 1 mg tablet, Historical Med amLODIPine (Norvasc) 10 MG tablet Take 10 mg by mouth daily., Starting Thu09/19/2022, Historical Med azithromycin (Zithromax) 250 MG tablet Every 24 hours., Starting Thu11/25/2022, Historical Med busPIRone (Buspar) 10 MG tablet Starting Thu12/07/2022, Historical Med cefdinir (Omnicef) 300 MG capsule Take 300 mg by mouth 2 times daily., Starting Thu05/22/2022, Historical Med clarithromycin (Biaxin) 500 MG tablet clarithromycin 500 mg tablet, Historical Med clindamycin (Cleocin) 150 MG capsule take 1 capsule by mouth twice a day until finished, Historical Med clonazePAM (KlonoPIN) 0.5 MG tablet Take 0.5 mg by mouth Nightly., Starting Thu11/12/2022, Historical Med cyclobenzaprine (Flexeril) 5 MG tablet every 12 hours., Historical Med dexAMETHasone (Decadron) 6 MG tablet Take 1 tablet (6 mg) by mouth daily for 5 days., Starting Thu10/14/2024, Until Thu10/19/2024, Normal doxycycline (Vibra-Tabs) 100 MG tablet Take 100 mg by mouth 2 times daily., Starting Thu12/20/2021, Historical Med escitalopram (Lexapro) 10 MG tablet Starting Thu12/07/2022, Historical Med fluticasone (Flonase) 50 MCG/ACT nasal spray INSTILL 2 SPRAYS INTO EACH NOSTRIL DAILY, Starting Thu02/20/2025, Normal Hgsnagnpyki-Hidclzkrw-Htodjd (Trelegy Ellipta) 100-62.5-25 MCG/ACT aerosol powder 1 puff Every 24 hours., Historical Med guaiFENesin (Mucinex) 600 MG 12 hr tablet Take 1 tablet by mouth every 12 hours as needed., Historical Med HYDROcodone-acetaminophen ([place]) 5-325 MG tablet take 1 tablet by mouth every 4 to 6 hours WHILE AWAKE if needed for POST OP PAIN for 3 days, Historical Med hydrOXYzine HCl (Atarax) 25 MG tablet take 3 tablets by mouth at bedtime if needed, Historical Med lisinopril-hydroCHLOROthiazide 10-12.5 MG tablet Take 1 tablet by mouth daily., Starting Thu10/10/2024, Until Thu11/09/2024, Historical Med loratadine (Claritin) 10 MG tablet Take 1 tablet by mouth daily., Historical Med meclizine (Antivert) 25 MG tablet every 8 hours., Historical Med montelukast (Singulair) 10 MG tablet Every 24 hours., Starting Thu11/25/2022, Historical Med omeprazole (PriLOSEC) [address] capsule take 1 capsule by mouth once daily ON AN EMPTY STOMACH AT LEAST 30 MINUTES BEFORE EATING, Historical Med oxyCODONE-acetaminophen (Percocet) 5-325 MG tablet take 1 tablet by mouth every 4 to 6 hours if needed FOR POST-OP PAIN WHILE AWAKE, Historical Med pseudoephedrine (Sudafed) 30 MG tablet Take 1 tablet (30 mg) by mouth every 6 hours as needed for congestion., Starting Thu10/14/2024, Normal ramelteon (Rozerem) 8 MG tablet take 1/2 tablet by mouth at bedtime for 2 NIGHTS then take 1 tablet by mouth at bedtime, Historical Med traMADol (Ultram) 50 MG tablet take 1 tablet by mouth every 4 hours if needed, Historical Med traZODone (Desyrel) 50 MG tablet Starting 12/07/2022, Historical Med ALLERGIES Escitalopram, Levofloxacin, Levofloxacin in d5w, Sulfa antibiotics, Budesonide, Doxycycline, Codeine, Tetracycline, Trimethoprim, and Penicillins SOCIAL HISTORY Social History Socioeconomic History Marital status: Spouse name: Not on file Number of children: Not on file Years of education: Not on file Highest education level: Not on file Occupational History Not on file Tobacco Use Smoking status: Every Day Current packs/day: 1.00 Types: Cigarettes Smokeless tobacco: Never Vaping Use Vaping status: Never Used Substance and Sexual Activity Alcohol use: Yes Comment: 2 beers couple times a week Drug use: Not Currently Types: Marijuana Sexual activity: Not on file Other Topics Concern Not on file Social History Narrative Not on file Social Drivers of Health Financial Resource Strain: Not on file Food Insecurity: Not on file Transportation Needs: Not on file Physical Activity: Not on file Stress: Not on file Social Connections: Not on file Intimate Partner Violence: Not on file Housing Stability: Low Risk (05/28/2023) Received from [employer] [facility] What is your living situation today?: I have a steady place to live Think about the place you live. Do you have problems with: Choose all that apply.: None of the above PHYSICAL EXAM Vitals: 05/14/25 0151 BP: 139/64 BP Location: Right arm Patient Position: Sitting Pulse: 85 Resp: 16 Temp: 37 C (98.6 F) TempSrc: Oral SpO2: 94% Weight: 50.3 kg (111 lb) Height: 1.651 m (5' 5) Physical Exam Vitals and nursing note reviewed. Constitutional: Appearance: She is underweight. HENT: Head: Right periorbital erythema present. Eyes: Extraocular Movements: Extraocular movements intact. Conjunctiva/sclera: Conjunctivae normal. Pupils: Right eye: Pupil is reactive. Left eye: Pupil is reactive. Cardiovascular: Rate and Rhythm: Normal rate. Heart sounds: Normal heart sounds. Pulmonary: Breath sounds: Normal breath sounds. Abdominal: General: Bowel sounds are normal. There is no distension. Palpations: Abdomen is soft. Tenderness: There is abdominal tenderness (left flank). There is left CVA tenderness. There is no right CVA tenderness or guarding. Hernia: No hernia is present. Musculoskeletal: Cervical back: Decreased range of motion. Skin: General: Skin is warm. Coloration: Skin is not jaundiced. Neurological: Mental Status: She is alert and oriented to person, place, and time. Cranial Nerves: Cranial nerves 2-12 are intact. Sensory: Sensation is intact. Motor: Motor function is intact. Coordination: Coordination is intact. Deep Tendon Reflexes: Reflexes are normal and symmetric. Psychiatric: Behavior: Behavior normal. Thought Content: Thought content normal. SCREENINGS Medical decision making DIAGNOSTIC RESULTS Procedures/EKG: Physician EKG interpretation can be found in [facility] if done Radiologist results reviewed: CT chest abdomen pelvis with contrast Final Result 1. No intracranial hemorrhage. 2. Chronic sinusitis. CT C-SPINE: 1 mm axial cuts are obtained through the cervical spine without IV contrast. Sagittal and coronal reconstructions are reviewed. In addition, 3D rendering is performed by me and reviewed on the [employer] Workstation. Dose reduction was employed with automated exposure control. The examination is compared to a previous MRI dated 04/28/2025. FINDINGS: There is a mild anterolisthesis C4 on C5. The slip is approximately 3 mm. Mild disc space narrowing and spurring are noted at C5-6 and C6-7. Vertebral body heights are maintained. There is no evidence of fracture or traumatic subluxation. IMPRESSION: 1. Moderate degenerative changes. These are stable when compared to the previous MRI. 2. No C-spine fracture or traumatic subluxation. CT CHEST: 1 mm axial cuts through the chest are provided with 75 mL Isovue IV contrast. Dose reduction was employed with automated exposure control. The examination is compared to a previous study dated 07/09/2018. FINDINGS: Advanced emphysematous changes are noted diffusely. Centrilobular emphysema is most pronounced in the lung apices. There are no focal infiltrates. Old healed rib fractures are noted bilaterally. There is no pneumothorax. The heart size is normal. The pulmonary arteries are enlarged consistent with chronic pulmonary hypertension. Mild coronary arterial calcifications are evident. There is no significant mediastinal lymphadenopathy. IMPRESSION: 1. Advanced COPD with evidence of chronic pulmonary hypertension. 2. No focal infiltrates. 3. Old bilateral healed rib fractures. 4. No pneumothorax. CT ABDOMEN: 3 mm axial cuts from the dome of the diaphragm through the iliac crests are provided with 75 mL Isovue IV contrast. Dose reduction was employed with automated exposure control. There are no comparison studies. FINDINGS: There is a small hiatal hernia. The liver and spleen are homogeneous in their attenuation without focal abnormality. The pancreas and adrenal glands are unremarkable. Both kidneys are identified in their cortical phase. Nephrograms enhance symmetrically without abnormality. No free fluid is seen within the abdomen. IMPRESSION: 1. No internal organ injury. CT PELVIS: 3 mm axial cuts from the iliac crests through the symphysis pubis are provided with 75 mL Isovue IV contrast. Dose reduction was employed with automated exposure control. There are no comparison studies. FINDINGS: Air and stool are identified within the colon to the level of the rectum. There is no evidence of obstruction. No free fluid is seen within the pelvis. Sagittal reconstructed images of the spine demonstrate an old L2 compression fracture. This has lost approximately 40% of its height. IMPRESSION: 1. No intracranial hemorrhage. 2. Chronic sinusitis. 3. Moderate degenerative changes in the cervical spine. These are stable when compared to the previous MRI. 4. No C-spine fracture or traumatic subluxation. 5. Advanced COPD with evidence of chronic pulmonary hypertension. 6. No focal infiltrates. 7. Old bilateral healed rib fractures. 8. No pneumothorax. 9. No internal organ injury. 10. Old L2 compression fracture. Report Dictated on Electronically Signed By: Sergio Cunningham MD Electronically Signed Date/Time: 05/14/2025 3:[address] cervical spine wo IV contrast Final Result 1. No intracranial hemorrhage. 2. Chronic sinusitis. CT C-SPINE: 1 mm axial cuts are obtained through the cervical spine without IV contrast. Sagittal and coronal reconstructions are reviewed. In addition, 3D rendering is performed by nc and reviewed on the [employer] Workstation. Dose reduction was employed with automated exposure control. The examination is compared to a previous MRI dated 04/28/2025. FINDINGS: There is a mild anterolisthesis C4 on C5. The slip is approximately 3 mm. Mild disc space narrowing and spurring are noted at C5-6 and C6-7. Vertebral body heights are maintained. There is no evidence of fracture or traumatic subluxation. IMPRESSION: 1. Moderate degenerative changes. These are stable when compared to the previous MRI. 2. No C-spine fracture or traumatic subluxation. CT CHEST: 1 mm axial cuts through the chest are provided with 75 mL Isovue IV contrast. Dose reduction was employed with automated exposure control. The examination is compared to a previous study dated 07/09/2018. FINDINGS: Advanced emphysematous changes are noted diffusely. Centrilobular emphysema is most pronounced in the lung apices. There are no focal infiltrates. Old healed rib fractures are noted bilaterally. There is no pneumothorax. The heart size is normal. The pulmonary arteries are enlarged consistent with chronic pulmonary hypertension. Mild coronary arterial calcifications are evident. There is no significant mediastinal lymphadenopathy. IMPRESSION: 1. Advanced COPD with evidence of chronic pulmonary hypertension. 2. No focal infiltrates. 3. Old bilateral healed rib fractures. 4. No pneumothorax. CT ABDOMEN: 3 mm axial cuts from the dome of the diaphragm through the iliac crests are provided with 75 mL Isovue IV contrast. Dose reduction was employed with automated exposure control. There are no comparison studies. FINDINGS: There is a small hiatal hernia. The liver and spleen are homogeneous in their attenuation without focal abnormality. The pancreas and adrenal glands are unremarkable. Both kidneys are identified in their cortical phase. Nephrograms enhance symmetrically without abnormality. No free fluid is seen within the abdomen. IMPRESSION: 1. No internal organ injury. CT PELVIS: 3 mm axial cuts from the iliac crests through the symphysis pubis are provided with 75 mL Isovue IV contrast. Dose reduction was employed with automated exposure control. There are no comparison studies. FINDINGS: Air and stool are identified within the colon to the level of the rectum. There is no evidence of obstruction. No free fluid is seen within the pelvis. Sagittal reconstructed images of the spine demonstrate an old L2 compression fracture. This has lost approximately 40% of its height. IMPRESSION: 1. No intracranial hemorrhage. 2. Chronic sinusitis. 3. Moderate degenerative changes in the cervical spine. These are stable when compared to the previous MRI. 4. No C-spine fracture or traumatic subluxation. 5. Advanced COPD with evidence of chronic pulmonary hypertension. 6. No focal infiltrates. 7. Old bilateral healed rib fractures. 8. No pneumothorax. 9. No internal organ injury. 10. Old L2 compression fracture. Report Dictated on Electronically Signed By: Sergio Cunningham MD Electronically Signed Date/Time: 05/14/2025 3:[address] head wo IV contrast Final Result 1. No intracranial hemorrhage. 2. Chronic sinusitis. CT C-SPINE: 1 mm axial cuts are obtained through the cervical spine without IV contrast. Sagittal and coronal reconstructions are reviewed. In addition, 3D rendering is performed by nc and reviewed on the [employer] Workstation. Dose reduction was employed with automated exposure control. The examination is compared to a previous MRI dated 04/28/2025. FINDINGS: There is a mild anterolisthesis C4 on C5. The slip is approximately 3 mm. Mild disc space narrowing and spurring are noted at C5-6 and C6-7. Vertebral body heights are maintained. There is no evidence of fracture or traumatic subluxation. IMPRESSION: 1. Moderate degenerative changes. These are stable when compared to the previous MRI. 2. No C-spine fracture or traumatic subluxation. CT CHEST: 1 mm axial cuts through the chest are provided with 75 mL Isovue IV contrast. Dose reduction was employed with automated exposure control. The examination is compared to a previous study dated 07/09/2018. FINDINGS: Advanced emphysematous changes are noted diffusely. Centrilobular emphysema is most pronounced in the lung apices. There are no focal infiltrates. Old healed rib fractures are noted bilaterally. There is no pneumothorax. The heart size is normal. The pulmonary arteries are enlarged consistent with chronic pulmonary hypertension. Mild coronary arterial calcifications are evident. There is no significant mediastinal lymphadenopathy. IMPRESSION: 1. Advanced COPD with evidence of chronic pulmonary hypertension. 2. No focal infiltrates. 3. Old bilateral healed rib fractures. 4. No pneumothorax. CT ABDOMEN: 3 mm axial cuts from the dome of the diaphragm through the iliac crests are provided with 75 mL Isovue IV contrast. Dose reduction was employed with automated exposure control. There are no comparison studies. FINDINGS: There is a small hiatal hernia. The liver and spleen are homogeneous in their attenuation without focal abnormality. The pancreas and adrenal glands are unremarkable. Both kidneys are identified in their cortical phase. Nephrograms enhance symmetrically without abnormality. No free fluid is seen within the abdomen. IMPRESSION: 1. No internal organ injury. CT PELVIS: 3 mm axial cuts from the iliac crests through the symphysis pubis are provided with 75 mL Isovue IV contrast. Dose reduction was employed with automated exposure control. There are no comparison studies. FINDINGS: Air and stool are identified within the colon to the level of the rectum. There is no evidence of obstruction. No free fluid is seen within the pelvis. Sagittal reconstructed images of the spine demonstrate an old L2 compression fracture. This has lost approximately 40% of its height. IMPRESSION: 1. No intracranial hemorrhage. 2. Chronic sinusitis. 3. Moderate degenerative changes in the cervical spine. These are stable when compared to the previous MRI. 4. No C-spine fracture or traumatic subluxation. 5. Advanced COPD with evidence of chronic pulmonary hypertension. 6. No focal infiltrates. 7. Old bilateral healed rib fractures. 8. No pneumothorax. 9. No internal organ injury. 10. Old L2 compression fracture. Report Dictated on Electronically Signed By: Sergio Cunningham MD Electronically Signed Date/Time: 05/14/2025 3:59 AM EDT LABS: Labs Reviewed CBC WITH AUTO DIFFERENTIAL - Abnormal Result Value Auto WBC 9.8 RBC 4.03 Hemoglobin 13.2 Hematocrit 38.0 MCV 94.3 MCH 32.8 MCHC 34.7 RDW 13.1 Platelets 363 MPV 8.1 (*) nRBC 0.0 Neutrophils Relative 68.6 Lymphocytes Relative 18.7 Monocytes Relative 9.2 Eosinophils Relative 2.6 Basophils Relative 0.6 Immature Grans % 0.3 Neutrophils Absolute 6.7 Lymphocytes Absolute 1.8 Monocytes Absolute 0.9 Eosinophils Absolute 0.3 Basophils Absolute 0.1 Immature Grans Absolute 0.0 COMPREHENSIVE METABOLIC PANEL - Abnormal SODIUM 142 POTASSIUM 4.7 CHLORIDE 109 (*) CARBON DIOXIDE 27 ANION GAP 6 UREA NITROGEN 8 (*) CREATININE 0.59 GLUCOSE 101 CALCIUM 9.1 AST (SGOT) 23 ALT 17 ALKALINE PHOSPHATASE 57 ALBUMIN 3.8 BILIRUBIN, TOTAL 0.2 TOTAL PROTEIN 6.7 eGFR >90.0 PROTHROMBIN TIME - Abnormal PROTHROMBIN TIME 9.9 INR <0.9 (*) LIPASE - Normal LIPASE 49 COMPLETE URINALYSIS WITH REFLEX TO CULTURE - Normal Color, Urine Colorless Clarity, Urine Clear pH, Urine 5.5 Leukocytes, Urine Negative Nitrite, Urine Negative Protein, Urine Negative Glucose, Urine Normal Bilirubin, Urine Negative Ketones, Urine Negative Urobilinogen, Urine Normal Blood, Urine Negative SPECIFIC GRAVITY OF URINE (NUMERIC) 1.006 Narrative: A specimen with <=10 WBC is not consistent with inflammation. This specimen will not reflex to a urine culture. LACTIC ACID WITH REFLEX - Normal LACTIC ACID 1.0 APTT - Normal APTT 25.4 Narrative: NOTE: The therapeutic time for Heparin anticoagulation, based on Xa activity inhibition, is an APTT of 46-80 seconds. NT PRO BNP - Normal NT PRO BNP 34 BLOOD CULTURE BLOOD GAS, VENOUS ([facility] AND [facility]) pH 7.349 pCO2 48 pO2 45 BASE EXCESS 1.0 HCO3 26.3 TCO2 28.0 O2 Saturation 78.0 Source Of Oxygen Nasal Cannula (LPM) Amount Of Oxygen 2 RADIOLOGY : Medications ordered: Medications HYDROcodone-acetaminophen ([place]) 5-325 MG per tablet 1 tablet (1 tablet Oral Given 05/14/25 0244) iopamidol (Isovue-370) 76 % injection 75 mL (75 mL IntraVENous Given 05/14/25 0345) HYDROcodone-acetaminophen ([place]) 5-325 MG per tablet 1 tablet (1 tablet Oral Given 05/14/25 9175) ED Course as of 05/14/25 0432 Sun May 14, 2025 0205 XR chest 2 views (11/04/24 0169) Prior medical records were reviewed: ordered by pcp nad [NM] 0205 XR chest 2 views (11/28/22 7806) Prior medical records were reviewed: nad [NM] 0205 XR chest 2 views (11/28/22 1449) Prior medical records were reviewed: nad [NM] ED Course User Index [NM] Harpal Cuevas MD Diagnoses as of 05/14/25 0432 Fall, initial encounter Head injury, initial encounter Contusion of rib on left side, initial encounter * No order type specified * Our workup consisted of ordering/reviewing: Orders Placed This Encounter Procedures Blood culture Site #1 - Suspected Infection CT cervical spine wo IV contrast CT head wo IV contrast CT chest abdomen pelvis with contrast CBC auto differential Comprehensive metabolic panel Lipase Urinalysis complete with reflex to Culture Blood gas, venous (Vicki and Green) Lactic acid with reflex Protime-INR APTT NT PRO BNP Pulse Oximetry Vital Signs Cardiac monitoring Oxygen Therapy - Device: Nasal Cannula; Indication for O2: SpO2 less than 90%; Initial Flow Rate (L/Min) (1-6 L/Min): 2; SpO2 Goal (%): 90-96%; Initiate Oxygen Titration: Yes; Should O2 be decreased below initial flow rate to room air? Yes ECG 12 lead Insert peripheral IV MDM: 69 y.o. presented with injury. The differential diagnosis considered: Intracranial hemorrhage, C-spine fracture, rib fracture, intra-abdominal injury, splenic injury, kidney injury, blood gas derangement, lung contusion Patient's care was impacted by comorbidity of chronic respiratory failure, likely contributing to some of the hypoxemia ordered oxygen. Patient's care was significantly impacted by social determinants of health including Drug addiction, nicotine addiction increasing her risk for pneumothorax hence chest imaging study was ordered CT head interpreted by me: No intracranial hemorrhage no skull fracture. CT C-spine interpreted by me: Spondylolisthesis anterior mild. Otherwise no acute fracture CT chest abdomen pelvis interpreted by me: No pneumothorax no acute rib fracture no bowel perforation. Prescription medications considered but not prescribed: oxycodone po. Will trial alternative to opiates. . REVAL: CRITICAL CARE TIME PROCEDURES: Procedures FINAL IMPRESSION 1. Head injury, initial encounter 2. Fall, initial encounter 3. Contusion of rib on left side, initial encounter DISPOSITION/PLAN DISPOSITION Discharge 05/14/2025 04:07:42 AM PATIENT REFERRED TO: Jeremiah Martínez MD [address] [place], [place] [id number] In 11 days I prescribed: Discharge Medication List as of 05/14/2025 4:10 AM (Comment: this report has been produced using speech recognition software and may contain errors related to that system including errors in grammar, punctuation, and spelling, as well as words and phrases) Harpal Cuevas MD (electronically signed) Harpal Cuevas MD 05/14/25 0432 [facility] 05-02-2025 Telephone encounter Note Incoming referral from PCP for Dr Yamileth Aguillon for Cervical djd/ddd causing effacement of neural foramina and contact with cord. Called to schedule. No answer. Left VM to call back and schedule appointment. EMG and MRI Cervical SUMMA requested. Kerrie Johnson May 02, 2025 5:30 PM [facility] 05-02-2025 Miscellaneous Notes Incoming referral from PCP for Dr Yamileth Aguillon for Cervical djd/ddd causing effacement of neural foramina and contact with cord. Called to schedule. No answer. Left VM to call back and schedule appointment. EMG and MRI Cervical SUMMA requested. Kerrie Johnson May 02, 2025 5:30 PM documented in this encounter [facility] 04-17-2025 Telephone encounter Note Spoke with patient regarding rescheduling diagnostic angiogram with Dr. Bess. Patient stated she is going to have surgery and will call to schedule DSA. Provided call back number. [facility] 04-17-2025 Miscellaneous Notes Spoke with patient regarding rescheduling diagnostic angiogram with Dr. Bess. Patient stated she is going to have surgery and will call to schedule DSA. Provided call back number. documented in this encounter [facility] 04-07-2025 Note Name: Sully Perdomo Date of : 1955 Referring physician: Jeremiah Martínez MD A report of nerve conduction studies and electromyography of the right upper extremity Date of service: April 07, 2025 Findings: Sensory nerve conduction studies disclosed a moderately prolonged response latency and reduced amplitude in the right ulnar nerve. In the right median nerve, the response latency was mildly prolonged while the amplitude was normal. The response latency and amplitude were normal in the right radial nerve. With palmar stimulation, the right median and ulnar response latencies were both prolonged compared to standard norms, with the median nerve latency significantly prolonged compared to the ulnar nerve latency. A right luesae-kq-kdgawm nerve thumb comparison showed the median nerve response latency was significantly prolonged compared to the radial nerve response latency. Motor nerve conduction studies disclosed normal distal latencies, response amplitudes and conduction velocities in the right median nerve and in the right ulnar nerve to both abductor digiti minimi (ADM) and first dorsal interosseus (FDI). There was a marked decrease in conduction velocity and loss of response amplitude across the elbow region along the right ulnar nerve to FDI. There was a marked loss of conduction velocity without a significant loss of response amplitude across the elbow region along the right ulnar nerve to ADM. Needle EMG examination disclosed occasional positive sharp waves and fibrillations in the right first dorsal interosseus (FDI). Spontaneous activity was normal in the right biceps, triceps, pronator teres, flexor carpi ulnaris (FCU), extensor indicis proprius, abductor digiti minimi (ADM) and abductor pollicis brevis (APB). Motor unit potential recruitment was markedly decreased in the right ADM, where many potentials were enlarged and polyphasic. Recruitment was moderately decreased in the right FDI and APB and mildly decreased in the right FCU; in each of these muscles there were multiple enlarged motor unit potentials. Motor unit potential recruitment and morphology were normal in all other muscles examined. Interpretation: Nerve conduction studies and electromyography of the right upper limb disclosed evidence consistent with multiple abnormalities. 1) There was evidence of a right ulnar neuropathy in the region of the elbow. 2) There was also evidence of a right ulnar neuropathy at or distal to the wrist. It was impossible to precisely determine the relative contributions of the two ulnar nerve lesions to the distal denervation, but in comparing their relative degree of abnormality, it appeared that the lesion near the elbow was more severe than the lesion near the wrist. 3) There was evidence of a right median neuropathy at or distal to the wrist (carpal tunnel syndrome), moderate in degree electrophysiologically. Clinical correlation is advised. Anna Mcgowan MD Location: Testing was conducted at [facility] as an outpatient. [facility] 04-07-2025 Procedure note Name: Sully Perdomo Date of : 1955 Referring physician: Jeremiah Martínez MD A report of nerve conduction studies and electromyography of the right upper extremity Date of service: April 07, 2025 Findings: Sensory nerve conduction studies disclosed a moderately prolonged response latency and reduced amplitude in the right ulnar nerve. In the right median nerve, the response latency was mildly prolonged while the amplitude was normal. The response latency and amplitude were normal in the right radial nerve. With palmar stimulation, the right median and ulnar response latencies were both prolonged compared to standard norms, with the median nerve latency significantly prolonged compared to the ulnar nerve latency. A right vfatyg-gk-sijtqc nerve thumb comparison showed the median nerve response latency was significantly prolonged compared to the radial nerve response latency. Motor nerve conduction studies disclosed normal distal latencies, response amplitudes and conduction velocities in the right median nerve and in the right ulnar nerve to both abductor digiti minimi (ADM) and first dorsal interosseus (FDI). There was a marked decrease in conduction velocity and loss of response amplitude across the elbow region along the right ulnar nerve to FDI. There was a marked loss of conduction velocity without a significant loss of response amplitude across the elbow region along the right ulnar nerve to ADM. Needle EMG examination disclosed occasional positive sharp waves and fibrillations in the right first dorsal interosseus (FDI). Spontaneous activity was normal in the right biceps, triceps, pronator teres, flexor carpi ulnaris (FCU), extensor indicis proprius, abductor digiti minimi (ADM) and abductor pollicis brevis (APB). Motor unit potential recruitment was markedly decreased in the right ADM, where many potentials were enlarged and polyphasic. Recruitment was moderately decreased in the right FDI and APB and mildly decreased in the right FCU; in each of these muscles there were multiple enlarged motor unit potentials. Motor unit potential recruitment and morphology were normal in all other muscles examined. Interpretation: Nerve conduction studies and electromyography of the right upper limb disclosed evidence consistent with multiple abnormalities. 1) There was evidence of a right ulnar neuropathy in the region of the elbow. 2) There was also evidence of a right ulnar neuropathy at or distal to the wrist. It was impossible to precisely determine the relative contributions of the two ulnar nerve lesions to the distal denervation, but in comparing their relative degree of abnormality, it appeared that the lesion near the elbow was more severe than the lesion near the wrist. 3) There was evidence of a right median neuropathy at or distal to the wrist (carpal tunnel syndrome), moderate in degree electrophysiologically. Clinical correlation is advised. Anna Mcgowan MD Location: Testing was conducted at [facility] as an outpatient. [facility] [employer] Work Phone: 04-07-2025 Procedure note Name: Sully Perdomo Date of : 1955 Referring physician: Jeremiah Martínez MD A report of nerve conduction studies and electromyography of the right upper extremity Date of service: April 07, 2025 Findings: Sensory nerve conduction studies disclosed a moderately prolonged response latency and reduced amplitude in the right ulnar nerve. In the right median nerve, the response latency was mildly prolonged while the amplitude was normal. The response latency and amplitude were normal in the right radial nerve. With palmar stimulation, the right median and ulnar response latencies were both prolonged compared to standard norms, with the median nerve latency significantly prolonged compared to the ulnar nerve latency. A right nqdvpk-lh-bxkcxs nerve thumb comparison showed the median nerve response latency was significantly prolonged compared to the radial nerve response latency. Motor nerve conduction studies disclosed normal distal latencies, response amplitudes and conduction velocities in the right median nerve and in the right ulnar nerve to both abductor digiti minimi (ADM) and first dorsal interosseus (FDI). There was a marked decrease in conduction velocity and loss of response amplitude across the elbow region along the right ulnar nerve to FDI. There was a marked loss of conduction velocity without a significant loss of response amplitude across the elbow region along the right ulnar nerve to ADM. Needle EMG examination disclosed occasional positive sharp waves and fibrillations in the right first dorsal interosseus (FDI). Spontaneous activity was normal in the right biceps, triceps, pronator teres, flexor carpi ulnaris (FCU), extensor indicis proprius, abductor digiti minimi (ADM) and abductor pollicis brevis (APB). Motor unit potential recruitment was markedly decreased in the right ADM, where many potentials were enlarged and polyphasic. Recruitment was moderately decreased in the right FDI and APB and mildly decreased in the right FCU; in each of these muscles there were multiple enlarged motor unit potentials. Motor unit potential recruitment and morphology were normal in all other muscles examined. Interpretation: Nerve conduction studies and electromyography of the right upper limb disclosed evidence consistent with multiple abnormalities. 1) There was evidence of a right ulnar neuropathy in the region of the elbow. 2) There was also evidence of a right ulnar neuropathy at or distal to the wrist. It was impossible to precisely determine the relative contributions of the two ulnar nerve lesions to the distal denervation, but in comparing their relative degree of abnormality, it appeared that the lesion near the elbow was more severe than the lesion near the wrist. 3) There was evidence of a right median neuropathy at or distal to the wrist (carpal tunnel syndrome), moderate in degree electrophysiologically. Clinical correlation is advised. Anna Mcgowan MD Location: Testing was conducted at [facility] as an outpatient. documented in this encounter [facility] 03-17-2025 Radiology Diagnostic study note [facility] Imaging Services [address] [place], [place] [id number] Chest without Contrast MR#: [id number] Acct: [id number] Name: SULLY PERDOMO STEPHAN Rep #: [id number] : 1955 F 69 From: Aníbal Srinivasan MD PCP: Dr. Jeremiah Martínez MD Status: RE G CLI Study:Chest without Contrast Date of Exam: 03/17/25 Exam# [id number] Ordering Dr: Dawson Gilman NP [employer] HR GENERALIST-C PROCEDURE: CHEST WITHOUT CONTRAST 03/17/2025 REASON FOR EXAM: PULMONARY NODULES IN A SMOKER TECHNIQUE: Chest CT without contrast. Coronal and Sagittal reconstruction series were provided. One or more dose reduction techniques were used (e.g., Automated exposure control, adjustment of the mA and/or kV according to patient size, use of iterative reconstruction technique RADIATION DOSE SUMMARY: CTDlvol: 6.04 mGy DLP: 243.19 mGycm COMPARISON: Prior CT scan of the chest dated September 23, 2024. FINDINGS: Hardware: None Lymph nodes: Tiny benign-appearing mediastinal lymph nodes. Heart and Vasculature: The heart is nonenlarged. Coronary Artery Calcifications: Present Lungs and Airways: Advanced emphysematous changes are present. Multiple calcified granulomas in the right lung. These are unchanged. Pleura: No pleural effusion. Upper Abdomen: Unremarkable Bones: Degenerative changes of the thoracic spine. CT/Chest without Contrast IMPRESSION: Coronary artery calcification (CAC) is is present Emphysematous changes. Stable examination. Multiple calcified granulomas in the right lung. Reading Location: [place] [address] CC: H[employer] HR GENERALISTLyudmila Gilman; Dr. Jeremiah Martínez MD ~ Event Marketing Manager: Signed [facility] 03-15-2025 Telephone encounter Note Spoke with patient and she stated she has to have surgery and would like to cancel angiogram for tomorrow 03/16/25. Will send message to [place] NIL team. Patient will call back to reschedule. [facility] 03-15-2025 Miscellaneous Notes Spoke with patient and she stated she has to have surgery and would like to cancel angiogram for tomorrow 03/16/25. Will send message to [place] [facility] team. Patient will call back to reschedule. CV PHONE Name of caller : Sully Relationship to patient : Self If not self Will need patient permission to release results or disclose health information with called documented in fyi. Patient identified by Name and Date of . ( Sully Perdomo, 1955). Yes Number to return call [phone] Reason for Call: Patient is calling to inform office needs to cancel procedure for tomorrow until further notice. Patent has another procedure she needs to complete. Please call [phone] to assist JASMIN. documented in this encounter [facility] 03-15-2025 Telephone encounter Note CV PHONE Name of caller : Sully Relationship to patient : Self If not self Will need patient permission to release results or disclose health information with called documented in fyi. Patient identified by Name and Date of . ( Sully Perdomo, 1955). Yes Number to return call [phone] Reason for Call: Patient is calling to inform office needs to cancel procedure for tomorrow until further notice. Patent has another procedure she needs to complete. Please call [phone] to assist JASMIN. [facility] 03-06-2025 Note 1. Mild degenerative changes in the mid cervical spine. These have progressed mildly when compared to the previous study (6 years prior). 2. No acute radiographic findings. Report Dictated on Electronically Signed By: Sergio Cunningham MD Electronically Signed Date/Time: 03/06/2025 8:56 PM EDT [facility] 03-04-2025 Telephone encounter Note S: Patient spoke with [facility] nurse regarding low potassium from October lab work. B: Onset of symptoms/concern: labs completed in October. A: Patient states she was looking at her xray results in [facility] and she saw a low potassium, it was 2.3 on 10/14/24. States she hasn't been feeling well and wonders why the doctor did not discuss her low potassium level, last seen in the office on 02/23/25 with her concerns. R: Checked labs in [place] and reviewed Epic. Discussed she was in [...] Protocols used: Information Only Call - No [id number] [facility] 03-04-2025 Miscellaneous Notes S: Patient spoke with [facility] nurse regarding low potassium from October lab work. B: Onset of symptoms/concern: labs completed in October. A: Patient states she was looking at her xray results in [facility] and she saw a low potassium, it was 2.3 on 10/14/24. States she hasn't been feeling well and wonders why the doctor did not discuss her low potassium level, last seen in the office on 02/23/25 with her concerns. R: Checked labs in [place] and reviewed Epic. Discussed she was in [...] Protocols used: Information Only Call - No [id number] documented in this encounter [facility] 02-13-2025 Telephone encounter Note Summary: Rescheduled Diagnostic Cerebral Angiogram with Dr. Bess Patient contacted scheduling office needing to reschedule procedure from 02/17/2025 to 03/16/2025. Message was forwarded to Gil CASTELLON. I contacted patient to notify her that procedure has been rescheduled. Pre-procedure instructions were reviewed and reinforced. Patient verbalizes understanding. Patient provided with arrival time of 0900 day of procedure on 03/16/2025. Patient also provided [phone] contact number should any questions arise. [facility] 02-13-2025 Miscellaneous Notes Summary: Rescheduled Diagnostic Cerebral Angiogram with Dr. Bess Patient contacted scheduling office needing to reschedule procedure from 02/17/2025 to 03/16/2025. Message was forwarded to Gil CASTELLON. I contacted patient to notify her that procedure has been rescheduled. Pre-procedure instructions were reviewed and reinforced. Patient verbalizes understanding. Patient provided with arrival time of 0900 day of procedure on 03/16/2025. Patient also provided [phone] contact number should any questions arise. documented in this encounter [facility] 02-13-2025 Telephone encounter Note Patient called and needs to reschedule DSA with Dr. Bess. DSA now scheduled for 03/16/25. Will make YESICA CASTELLON aware. [facility] 02-13-2025 Miscellaneous Notes Patient called and needs to reschedule DSA with Dr. Bess. DSA now scheduled for 03/16/25. Will make YESICA CASTELLON aware. documented in this encounter [facility] 02-03-2025 Telephone encounter Note Summary: date/time of cerebral angiogram Spoke with patient via phone regarding date/time of upcoming DSA with Dr. Murrell on 02/17/25 @1030am. All questions answered. [facility] 02-03-2025 Miscellaneous Notes Summary: date/time of cerebral angiogram Spoke with patient via phone regarding date/time of upcoming DSA with Dr. Murrell on 02/17/25 @1030am. All questions answered. documented in this encounter [facility] 01-18-2025 Telephone encounter Note Summary: Reminder call for DSA on 01/19/25 Left voicemail message regarding upcoming NIL DSA on 01/19/[address] Bess at 11am. Instructed patient to call with any questions. [facility] 01-18-2025 Miscellaneous Notes Summary: Reminder call for DSA on 01/19/25 Left voicemail message regarding upcoming NIL DSA on 01/19/[address] Bess at 11am. Instructed patient to call with any questions. documented in this encounter [facility] 01-10-2025 Telephone encounter Note Gave arrival time and information for procedure with Dr. Bess 01/19/25 at 1100/1000 arrival. Patient had not reviewed her MyChart letter yet, reminded her it will be in an kurtis not an email. Reviewed important NPO, medication, and procedure/arrival information. Patient confirmed she had information written down from previous scheduling call, and our call. Gave NIL nurses' office number to call back with any other questions or concerns. [facility] 01-10-2025 Miscellaneous Notes Gave arrival time and information for procedure with Dr. Bess 01/19/25 at 1100/1000 arrival. Patient had not reviewed her MyChart letter yet, reminded her it will be in an kurtis not an email. Reviewed important NPO, medication, and procedure/arrival information. Patient confirmed she had information written down from previous scheduling call, and our call. Gave NIL nurses' office number to call back with any other questions or concerns. documented in this encounter [facility] 01-03-2025 Telephone encounter Note Left VM for patient to call and schedule diagnostic angiogram with Dr. Bess. Provided call back number to call and schedule. [facility] 01-03-2025 Miscellaneous Notes Left VM for patient to call and schedule diagnostic angiogram with Dr. Bess. Provided call back number to call and schedule. documented in this encounter [facility] 01-02-2025 Note HNO ID: [id number] Author: GOPI BESS MD Service: ? Author Type: Physician Type: Progress Notes Filed: 01/02/2025 13:33 Note Text: Cerebrovascular Center: Cerebrovascular Neurosurgery and Endovascular Surgical Neuroradiology New Visit Sully Perdomo [facility]#: [id number] Date of Service: 01/02/2025 Primary Care Provider: [...] reports a lung nodule found by her outside rigger, for which she is scheduled to have [...] the [place] (more content not included)... [facility] 12-19-2024 Radiology Diagnostic study note [facility] Imaging Services [address] [place] [address] Chest PA and Lateral MR#: [id number] Acct: [id number] Name: SULLY PERDOMO STEPHAN Rep #: [id number] : 1955 F 69 From: Ryder Husain DO PCP: Dr. Jeremiah Martínez MD Status: RE G CLI Study:Chest PA and Lateral Date of Exam: 12/19/24 Exam# [id number] Ordering Dr: Dawson Gilman [employer] HR GENERALIST H[employer] HR GENERALIST-C PROCEDURE: CHEST PA AND LATERAL 12/19/2024 REASON [...] fractures. Subacute right rib fractures. Reading Location: [id number] CC: OLIVE Gilman; Dr. Jeremiah Martínez MD ~ Event Marketing Manager: Signed [facility] 12-16-2024 Telephone encounter Note Images from the original note were not included. OSH imaging/records received from [facility]: December 16, 2024 - Records available in Care Everywhere - Images OSH imaging/records received from [facility]: December 16, 2024 - Records available in Care Everywhere - Images [facility] 12-16-2024 Miscellaneous Notes Images from the original note were not included. OSH imaging/records received from [facility]: December 16, 2024 - Records available in Care Everywhere - Images OSH imaging/records received from [facility]: December 16, 2024 - Records available in Care Everywhere - Images ENDOVASCULAR INTAKE Patient name: Sully Perdomo When was triage completed? December 16 What diagnosis are you looking to be seen for within our center? (ex: aneurysm, angioma, arteriovenous malformation, brain bleed or brain hemorrhage, cavernous malformation, carotid stenosis, fistula, [place], Vein of Henry, IIH or pseudotumor, etc.) Aneurysm & Dizziness (Patient went in for sinus issues, and doctor found the aneurysm) Is there a specific provider who is requesting you see our center? (referring provider) Dr. Sergio Diaz MD Has your referring provider recommended a specific provider in our department? No Is this a second opinion? Have you been recommended for surgery or procedure for this condition? Not a second opinion. Not yet recommended for surgery/procedure. If yes, have you scheduled this procedure at another facility? If yes, when is the procedure scheduled? Where have you had any imaging for this diagnosis in the past year? These include images such as ultrasounds, MRIs, CTs, or angiograms of the head, brain, neck, carotids, or spine. [facility] (Records in Care Everywhere) Have you had any surgeries or procedures for this condition? No, patient stated she had sinus surgery couple years ago though. If yes, where was it done and when? Who performed the surgery or procedure? [facility] Does any of the following pertain to you? Family history of brain aneurysm? No Polycystic kidney disease or other genetic kidney disease? Not applicable if chronic kidney disease. No Connective tissue disease such as fibromuscular dysplasia or Moy-Danlos Syndrome? No Do you prefer in-person or virtual appointment? Out of state residents must be in [place] at the time of their virtual visit. Patient prefers [place] area Specific day of the week or time of day? Any Time Do you prefer to be notified of your appointment by phone or MyChart message? Phone Call Thank you for speaking with me today. Your information will now be forwarded to our endovascular advance practice provider team to review and provide scheduling recommendations. Please allow 3 business days to hear back from us. If you do not, feel free to call back [phone] for an update. Name of Caller & Phone Number: Anjelica from Dr. Sergio Diaz MD - [place] [phone] - referral What diagnosis do you need seen for: aneurysm 3. Have you been recommended for surgery/procedure for this diagnosis: No 4. Have you had imaging for this diagnosis in the past year?: No Please call patient. Thank you for the information, your chart will be forwarded to our Intake team. A coordinator will reach out to you within the next 24 hours to go through our triage questionnaire with you. If you don't receive a call from them within the next 3 business days, please call [phone] to follow up. documented in this encounter [facility] 12-16-2024 Telephone encounter Note ENDOVASCULAR INTAKE Patient name: Sully Perdomo When was triage completed? December 16 What diagnosis are you looking to be seen for within our center? (ex: aneurysm, angioma, arteriovenous malformation, brain bleed or brain hemorrhage, cavernous malformation, carotid stenosis, fistula, [place], Vein of [place], IIH or pseudotumor, etc.) Aneurysm & Dizziness (Patient went in for sinus issues, and doctor found the aneurysm) Is there a specific provider who is requesting you see our center? (referring provider) Dr. Sergio Diaz MD Has your referring provider recommended a specific provider in our department? No Is this a second opinion? Have you been recommended for surgery or procedure for this condition? Not a second opinion. Not yet recommended for surgery/procedure. If yes, have you scheduled this procedure at another facility? If yes, when is the procedure scheduled? Where have you had any imaging for this diagnosis in the past year? These include images such as ultrasounds, MRIs, CTs, or angiograms of the head, brain, neck, carotids, or spine. [facility] (Records in Care Everywhere) Have you had any surgeries or procedures for this condition? No, patient stated she had sinus surgery couple years ago though. If yes, where was it done and when? Who performed the surgery or procedure? [facility] Does any of the following pertain to you? Family history of brain aneurysm? No Polycystic kidney disease or other genetic kidney disease? Not applicable if chronic kidney disease. No Connective tissue disease such as fibromuscular dysplasia or Moy-Danlos Syndrome? No Do you prefer in-person or virtual appointment? Out of state residents must be in [place] at the time of their virtual visit. Patient prefers [facility] Specific day of the week or time of day? Any Time Do you prefer to be notified of your appointment by phone or MyChart message? Phone Call Thank you for speaking with me today. Your information will now be forwarded to our endovascular advance practice provider team to review and provide scheduling recommendations. Please allow 3 business days to hear back from us. If you do not, feel free to call back [phone] for an update. [facility] 12-15-2024 Telephone encounter Note Name of Caller & Phone Number: Anjelica from Dr. Sergio Diaz MD - [place] [phone] - referral What diagnosis do you need seen for: aneurysm 3. Have you been recommended for surgery/procedure for this diagnosis: No 4. Have you had imaging for this diagnosis in the past year?: No Please call patient. Thank you for the information, your chart will be forwarded to our Intake team. A coordinator will reach out to you within the next 24 hours to go through our triage questionnaire with you. If you don't receive a call from them within the next 3 business days, please call [phone] to follow up. [facility] Work Phone: 11-08-2024 Evaluation note Diagnosis Onset Date Resolution Daytime hypersomnia acute November 08, 2024 12:41pm Mass of upper lobe of left lung acute November 08, 2024 12:41pm Asthma-COPD overlap syndrome chronic November 08, 2024 12:41pm Hypoxia chronic November 08 12:41pm [facility] Work Phone: 1(801) 331-263102-07-2025 Hospital Discharge instructions* Discharge Instructions* Harpal Cuevas MD - 10/14/2024 11:54 AM EST - perform salt water gargles 4 times a day -Use Saline nasal spray 4 times a day. -Drink lots of fluids and get plenty of rest. --OTC tylenol as directed on the bottle. -perform deep breathing to promote clearing of the airways and good lung expansion. documented in this [facility]02-07-2025 Emergency department Note* Alona Mendosa RN - 10/14/2024 10:35 AM EST Patient ambulated to restroom. [id number] Emergency department Note* Alona Mendosa RN - [...] Hypertension Closed right hip fracture, initial encounter ([facility]) Closed 2-part intertrochanteric fracture of proximal end of right femur, initial encounter ([facility]) CURRENT MEDICATIONS Previous Medications ALBUTEROL (2.5 MG/3ML) [...] After use, clean tip and replace cap. [id number] (TRELEGY ELLIPTA) 100-62.5-25 MCG/ACT AEROSOL POWDER 1 [...] In compliance with this authorization, please visit www.fda.gov/media/187450/download or www.fda.gov/media/020835/download to access the applicable information sheets. SEDIMENTATION [...] most likely have more risk than benefit. [id number] SHARED DECISION MAKING: I discussed my risk assessment with the patient. The patient understands and consents to the risk of disposition/plan, as well as the risk of uncertainty in estimating outcomes. [id number] REVAL: CRITICAL CARE TIME PROCEDURES: Procedures FINAL IMPRESSION 1. Inflammatory disorder of upper respiratory tract DISPOSITION/PLAN DISPOSITION Discharge 10/14/2024 11:52:58 AM PATIENT REFERRED TO: Jeremiah Martínez MD [address] [place], [place] [id number] Call in 1 week I prescribed: New [...] an antibiotic this am. documented in this [facility]02-07-2025 Emergency department Triage note* Alona Mendosa RN [...] reach. Patient finished an antibiotic this am. [id number] Physician Emergency department Note* Harpal Cuevas MD [...] Hypertension Closed right hip fracture, initial encounter ([facility]) Closed 2-part intertrochanteric fracture of proximal end of right femur, initial encounter ([facility]) CURRENT MEDICATIONS Previous Medications ALBUTEROL (2.5 MG/3ML) [...] After use, clean tip and replace cap. [id number] (TRELEGY ELLIPTA) 100-62.5-25 MCG/ACT AEROSOL POWDER 1 [...] In compliance with this authorization, please visit www.fda.gov/media/295028/download or www.fda.gov/media/043795/download to access the applicable information sheets. SEDIMENTATION [...] MR brain w and wo contrast (06/07/24 09) Prior medical records were reviewed: nad. Ordered [...] most likely have more risk than benefit. [id number] SHARED DECISION MAKING: I discussed my risk assessment with the patient. The patient understands and consents to the risk of disposition/plan, as well as the risk of uncertainty in estimating outcomes. [id number] REVAL: CRITICAL CARE TIME PROCEDURES: Procedures FINAL IMPRESSION 1. Inflammatory disorder of upper respiratory tract DISPOSITION/PLAN DISPOSITION Discharge 10/14/2024 11:52:58 AM PATIENT REFERRED TO: Jeremiah Martínez MD [address] [place] [address] Call in 1 week I prescribed: [...] (electronically signed) Harpal Cuevas MD 10/14/24 1155 [facility]12-24-2024 Evaluation note* Diagnosis Onset Date Resolution Status [...] 2024 12:41pm Hypoxia chronic November 08 12:41pm [facility] Work Phone: 1(931) 533-690807-09-2024 Telephone encounter Note* Telephone Encounter - Naveed [...] and advise. Naveed Kat MA [facility]07-09-2024 Miscellaneous Notes* Telephone Encounter - Naveed Kat [...] Kat MA documented [facility] History of Present illness Narrative* Nery Ruiz MD - 01/21/2024 9:30 AM EDT [facility] [address], [address] [facility] [address] Dept phone: [phone] Sully Perdomo [id number] Assessment and Recommendations 1. Chronic pansinusitis Nasal [...] daily. escitalopram (Lexapro) 10 MG tablet HYDROcodone-acetaminophen ([place]) 5-325 MG tablet take 1 tablet by [...] Hypertension Closed right hip fracture, initial encounter ([facility]) Closed 2-part intertrochanteric fracture of proximal end of right femur, initial encounter ([facility]) Objective Physical Exam Constitutional - alert, no [...] overt purulence. No polyps. documented in this [facility]05-16-2024 Instructions* Patient Instructions* Nery Ruiz MD - [...] sneezing, itchy/watery eyes. These are safe for fci use. How to Irrigate the nose Fill [...] air purifier/ HEPA filter documented in this encounterSGerman HospitalDfckwh86-69-7697 Telephone encounter Note* Telephone Encounter - Helena Ott - 01/13/2024 4:51 PM EDT We have been unable to reach your patient to schedule their testing. Test Name: Stress echocardiogram (TTE) exercise with contrast, bubble, strain, and 3D PRN 1st Attempt: 01/12/24 Patient states she will call back 2nd Attempt: 01/13/24 sent vitor gomez JS FYI [facility] HospitalWqhkxx23-04-4110 Miscellaneous Notes* Telephone Encounter - Helena Ott - 01/13/2024 4:51 PM EDT We have been unable to reach your patient to schedule their testing. Test Name: Stress echocardiogram (TTE) exercise with contrast, bubble, strain, and 3D PRN 1st Attempt: 01/12/24 Patient states she will call back 2nd Attempt: 01/13/24 sent Pylba msg JS FYI documented in this [place] [address]-23-2024 Telephone encounter Note* Telephone Encounter - Dea Mcdonald RN - 12/29/2023 3:41 PM EDT We have been unable to reach your patient to schedule their testing. Test Name: US abdomen. Ordered 04/07/23 1st attempt via [employer], 1 cancellation - 04/10/23, 12/20/23 CL 2nd attempt called BURRING WHEEL OPERATOR TE to office and defer. 12/29/23 LR [address] [id number] Miscellaneous Notes* Telephone Encounter - Dea Mcdonald RN - 12/29/2023 3:41 PM EDT We have been unable to reach your patient to schedule their testing. Test Name: US abdomen. Ordered 04/07/23 1st attempt via [employer], 1 cancellation - 04/10/23, 12/20/23 CL 2nd attempt called BURRING WHEEL OPERATOR TE to office and defer. 12/29/23 LR documented in this [address]08-2024 Miscellaneous Notes* Telephone Encounter - Naveed [...] Kat MA [facility] Telephone encounter Note * Telephone Encounter - [...] Protocols used: Information Only Call - No [id number]-TMKZF-LL [facility] [id number] Miscellaneous Notes* Telephone Encounter - Purnima Santos [...] Protocols used: Information Only Call - No [id number]-[id number] documented in this [facility]10-30-2023 Miscellaneous Notes* Telephone Encounter - Naveed [...] Kat MA documented in this encounterPrem[facility]23 Telephone encounter Note * Telephone Encounter - Bc Way - 06/29/2023 2:13 PM EDT Ren the stress echo is not passing medical necessity (ABN fail), thanks! [facility] HospitalFohzye25-70-5612 Miscellaneous Notes* Telephone Encounter - Bc Castrejonchie - 06/29/2023 2:13 PM EDT Ren the stress echo is not passing medical necessity (ABN fail), thanks! documented in this encounterSGerman HospitalFwiyji72-56-4700 History of Present illness Narrative* James Arthur MD - 06/11/2023 2:16 PM EDT June 11, 2023 An order has been received for a CPAP Titration from [facility] Staff/Housekeeping Associate Staff Orders. Visit prep complete - Please refer to the sleep study order (under procedures tab) for protocol details and special instructions. Scheduled for 06/15/2023. Insurance: Payor: [employer] MEDICARE / Plan: [employer] PLUS / Product Type: HMO / Payer/Plan Subscr Sex Relation Sub. Ins. ID Effective Group Num 1. [employer] MEDICA* SULLY PERDOMO 1955 Female Self [id number] 08/07/22 [address] [address] [facility] Orders signed in the last [...] 1998 Rx with oral steroids; followed by Personal Injury Paralegal The medical record was reviewed to determine [...] PM, 06/11/2023 documented in this [facility] Instructions* Patient Instructions* Ellen Barakat PA-C - [...] If you do not have a responsible chain saw driver (family member or friend) withyou to take you home, your exam cannot be done with sedation and will be cancelled. Please bring a list of all of your current medications, including any Ducv-smr-Uyimtmk medications with you. Medications If you take [...] 2 08/2019 documented in this encounterPrem[facility]08-[facility]-2023 History of Present illness Narrative* Ellen Barakat [...] 1998 Rx with oral steroids; followed by Personal Injury Paralegal PAST SURGICAL HISTORY Procedure Laterality Date APPENDECTOMY [...] which included preparing to see the patient, mqif-an-uhbu patient care, completing clinical documentation, obtaining and/or reviewing separately obtained history, performing a medically appropriate examination, counseling and educating the pat ient/family/caregiver, ordering medications, tests, or procedures, communicating with other HCPs (not separately reported), independently interpreting results (not separately reported), communicatingresults to the patient/family/caregiver, and care coordination (not separately reported). Ellen Barakat PA-C April 16, 2023 9:40 AM documented in this encounterPrem[facility]04-11-2023 History of Present illness Narrative* Phillip Tobar MD - 12/16/2022 10:30 AM EDT Images from the original note were not included. [facility] [address] [place] [address] Dept: [phone] Dept Chief Complaint Patient presents with New [...] at [facility] physical therapy in the [facility]. No follow-ups on file. Phillip Tobar MD 12/16/2022 11:01 AM Please note that portions of this note may have been completed with voice recognition software. Documentation reviewed prior to signing but minor errors in terrazzo installer may have occurred. documented in this [facility]09-22-2022 Miscellaneous Notes* Telephone Encounter - Lizzie [...] Taking Tylenol without relief. Protocols used: Shoulder [id number] documented in this encounterPrem[facility] SouthEvaluation note* Diagnosis Injury of head, initial encounter- Primary Fall, initial encounter Laceration of scalp, initial encounter Acute alcoholic intoxication without complication (HCC) documented in this encounter [facility] Work Phone: Evaluation note* Diagnosis Right wrist fracture, closed, initial encounter- Primary documented in this encounter [facility] Work Phone: Evaluation noteNo assessment information available [facility] Work Phone: Evaluation note* Diagnosis Acute pain of right knee- Primary Quadriceps weakness Tendinopathy of right gluteus medius Acute pain of right knee documented in this encounter [facility] note* Diagnosis Acute pain of right knee documented in this encounter [facility] note* Diagnosis Hypoxemia- Primary Hypoxemia documented in this encounter [facility] note* Diagnosis Localized swelling, mass and lump, left lower limb documented in this encounter [facility] note* Diagnosis Altered bowel habits- Primary Other symptoms involving digestive system Postprandial epigastric pain Abdominal pain, epigastric Abnormal weight loss Loss of weight documented in this encounter [facility] note* Diagnosis Localized swelling, mass and lump, left lower limb- Primary Localized swelling, mass and lump, left lower limb documented in this encounter [facility] note* Diagnosis Emphysema, unspecified (HCC) documented in this encounter [facility] note* Diagnosis Postprandial epigastric pain Abdominal pain, epigastric documented in this encounter [facility] note* Diagnosis Emphysema, unspecified (HCC)- Primary Emphysema, unspecified (HCC) documented in this encounter [facility] note* Diagnosis Emphysema, unspecified (HCC)- Primary documented in this encounter [facility] note* Diagnosis Chronic sinusitis, unspecified documented in this encounter [facility] note* Diagnosis Chronic sinusitis, unspecified documented in this encounter [facility] note* Diagnosis Pain in right knee documented in this encounter [facility] note* Diagnosis Postprandial epigastric pain Abdominal pain, epigastric documented in this encounter [facility] note* Diagnosis Onset Date Resolution Status Mass of upper lobe of left lung acute Asthma-COPD overlap syndrome [facility] Work Phone: Evaluation note* Diagnosis Chronic pansinusitis- Primary Other chronic sinusitis documented in this encounter [facility] note* Diagnosis Chronic sinusitis, unspecified- Primary Chronic sinusitis, unspecified documented in this encounter [facility] note* Diagnosis Chronic sinusitis, unspecified- Primary documented in this encounter [facility] note* Diagnosis Pain in right knee- Primary Pain in right knee documented in this encounter [facility] note* Diagnosis Abnormal results of function studies of other organs and systems documented in this encounter [facility] note* Diagnosis Otitis media, unspecified, left ear documented in this encounter [facility] note* Diagnosis Abnormal results of function studies of other organs and systems- Primary Abnormal results of function studies of other organs and systems documented in this encounter [facility] note* Diagnosis Otitis media, unspecified, left ear- Primary Otitis media, unspecified, left ear documented in this encounter [facility] note* Diagnosis Shortness of breath- Primary Weakness Other malaise and fatigue documented in this encounter [facility] note* Diagnosis Inflammatory disorder of upper respiratory tract- Primary documented in this encounter [facility] note* Diagnosis Pneumothorax, unspecified Fracture of one rib, unspecified side, initial encounter for closed fracture documented in this encounter [facility] note* Diagnosis Other acute recurrent sinusitis documented in this encounter [facility] note* Diagnosis Dizziness and giddiness documented in this encounter [facility] note* Diagnosis Pneumothorax, unspecified- Primary Fracture of one rib, unspecified side, initial encounter for closed fracture Pneumothorax, unspecified Fracture of one rib, unspecified side, initial encounter for closed fracture documented in this encounter [facility] note* Diagnosis Cervicalgia Pain in unspecified shoulder documented in this encounter [facility] note* Diagnosis Polyneuropathy, unspecified documented in this encounter [facility] note* Diagnosis Cervicalgia documented in this encounter [facility] note* Diagnosis Head injury, initial encounter- Primary Fall, initial encounter Contusion of rib on left side, initial encounter documented in this encounter [facility] note* Diagnosis Rib pain on left side- Primary documented in this encounter [facility] note* Diagnosis Cervicalgia- Primary Pain in unspecified shoulder Cervicalgia Pain in unspecified shoulder documented in this encounter [facility] note* Diagnosis Polyneuropathy, unspecified- Primary documented in this encounter [facility] note* Diagnosis Cervicalgia- Primary Cervicalgia [facility]* Attachments The following attachments cannot be sent through Care Everywhere. * Lacerations: Mina (Djiboutian) * Scalp Laceration: Mina or Stitches (Djiboutian) * Alcohol Intoxication: Acute (Djiboutian) * Head Injury: Closed: General Info (Djiboutian) [facility] Work Phone: Hospital Discharge instructions* Attachments The following attachments cannot be sent through Care Everywhere. * Splint or Immobilizer Use (Djiboutian) * Wrist Fracture (Djiboutian) documented in this encounterSNJ Work Phone: Hospital Discharge instructions* Attachments The following attachments cannot be sent through Care Everywhere. * Bruised Rib (Djiboutian) [facility] (narrative)* Consultation (Routine) - Authorized Specialty Diagnoses / Procedures Referred By Contac t Referred To Contact Physical Therapy Diagnoses Acute pain of right knee Quadriceps weakness Tendinopathy of right gluteus medius Procedures [place] OFFICE/OUTPATIENT [facility] 60-74 MINUTES Phillip Tobar MD [address] [place] [address] Referral ID Status Reason Start Date Expiration Date Visits Requested Visits Authorized [id number] Authorized Specialty Services Required 12/16/2022 12/16/20[address] [facility] for referral (narrative)* Diagnostic Procedure Only (Routine) - Authorized Specialty Diagnoses / Procedures Referred By Contac t Referred To Contact US IMAGING Diagnoses Postprandial epigastric pain Procedures US ABD RIGHT UPPER QUADRANT US ABDOMINAL REAL TIME W/IMAGE LIMITED Ellen Barakat PA-C [address] [place] [address] Us Imaging Referral ID Status Reason Start Date Expiration Date Visits Requested Visits Authorized [id number] Authorized Auto-Generat ed Referral 04/16/2023 05/15/2024 1 1 * Outpatient Procedure (Routine) - Pending Review Specialty Diagnoses / Procedures Referred By Contac t Referred To Contact [facility] Diagnoses Altered bowel habits Abnormal weight loss Procedures COLONOSCOPY DIAGNOSTIC COLONOSCOPY FLX DX W/COLLJ SPEC WHEN PFRMD Ellen Barakat PA-C [address] [place] [address] [facility] [address] [place] [address] Referral ID Status Reason Start Date Expiration Date Visits Requested Visits Authorized [id number] Pending Review Auto-Generat ed Referral 04/16/2023 04/16/2024 1 1 * Outpatient Procedure (Routine) - Pending Review Specialty Diagnoses / Procedures Referred By Arianna aguirre Referred To Contact [facility] Diagnoses Abnormal weight loss Postprandial epigastric pain Procedures EGD DIAGNOSTIC ESOPHAGOGASTRODUODENOS COPY TRANSORAL DIAGNOSTIC Ellen Barakat PA-C [address] [facility] [place] [address] [facility] [address] [place] [address] Referral ID Status Reason Start Date Expiration Date Visits Requested Visits Authorized [id number] Pending Review Auto-Generat ed Referral 04/16/2023 04/16/[address] [facility] for referral (narrative)No reason for referral information [facility]WLake[facility] Work Phone: [facility] for visit Narrative* Imaging (Routine) - Closed Specialty Diagnoses / Procedures Referred By Arianna aguirre Referred To Contact Radiology Diagnoses Other acute recurrent sinusitis Procedures CT maxillofacial wo IV contrast Sergio Meneses MD [address] [place] [address] Phone: tel: fax: Referral ID Status Reason Start Date Expiration Date Visits Re quested Visits Authorized [id number] Closed 11/21/2024 01/20/2025 [address] [facility] for visit Narrative* Imaging (Routine) - Closed Specialty Diagnoses / Procedures Referred By Arianna t Referred To Contact Radiology Diagnoses Dizziness and giddiness Procedures MR brain w and wo contrast Sergio Meneses MD [address] [place] [address] Phone: tel: fax: [facility] [address] [place] [address] Phone: tel: Referral ID Status Reason Start Date Expiration Date Visits Re quested Visits Authorized [id number] Closed 11/22/2024 11/22/2025 [address] [facility] for visit Narrative* Hospital - Outpatient (Routine) - Closed Specialty Diagnoses / Procedures Referred By Contlou t Referred To Contact Neurology Diagnoses Polyneuropathy, unspecified Procedures Nerve conduction test with EMG Jeremiah Martínez MD [address] [place] [address] Phone: tel: fax: Referral ID Status Reason Start Date Expiration Date Visits Re quested Visits Authorized Closed 03/28/2025 03/23/2026 [address] [facility] for visit Narrative* Imaging (Routine) - Closed Specialty Diagnoses / Procedures Referred By Contlou t Referred To Contact Radiology Diagnoses Cervicalgia Procedures MR cervical spine wo contrast Jeremiah Martínez MD [address] [place] [address] Phone: tel: fax: [facility] [address] [place] [address] Phone: tel: Referral ID Status Reason Start Date Expiration Date Visits Re quested Visits Authorized [id number] Closed 03/28/2025 03/28/2026 1 1 [facility] [employer] Advance Directives Documents on File Type Date Recorded Patient Cardiac Cath Rn Expl anation Advance Directives and Living Will Power of Cdl Team Truck Driver Latest Code Status on File Code Status [...] Documents on File Type Date Recorded Patient Cardiac Cath Rn Expl anation ACP-Advance Directive ACP-Power of Cdl Team Truck Driver Advance Directive Response Recorded Date/ Time Living Will No October 30 6:28pm Power of Cdl Team Truck Driver No October 30, 2020 6:28pm Advance Directive Response Recorded Date/ Time Living Will No October 30 7:28pm Power of Cdl Team Truck Driver No October 30, 2020 7:28pm Advance Directive Response Recorded Date/ Time Living Will No October 30 7:28pm Do you have a Healthcare Power of Cdl Team Truck Driver? No October 30, 2020 7:28pm Hospital Course * Dea Laws DO - 06/12/2019 10:00 AM EDT Physician Discharge Summary Patient ID: Sully Perdomo [id number] 63 y.o. 1955 Admit date: 06/11/2019 Discharge date and time: 06/14/19 Admitting Physician: Foreign Fenton MD Discharge Physician: DEA LAWS MD Admission Diagnoses: Closed 2-part intertrochanteric fracture of proximal end of right femur, initial encounter ([facility]) [S72.141A] Closed right hip fracture, initial encounter ([facility]) [S72.001A] Discharge Diagnoses: same with hip repair [...] Continuity of Care Form Patient Name: Sully Perodmo : 1955 Admit date: 06/11/2019 Discharge date: [...] Discharging Nurse: EL[facility]ABETH [facility] Unit/Room#: 154/1544 Discharging Unit Emergency Contact: Extended Emergency Contact Information Primary Emergency Contact: luiza perdomo [place] Relation: Child Past Surgical History: Past Surgical History: Procedure Laterality Date APPENDECTOMY DIAGNOSTIC CARDIAC TELEGRAPH DISPATCHER PROCEDURE 06/01/2019 Non obstructive CAD with mild [...] proximal end of right femur, initial encounter ([facility]) S72.141A Closed right hip fracture, initial encounter ([facility]) S72.001A Isolation/Infection: Isolation No Isolation Nurse Assessment: [...] Assisted Dressing Assisted Toileting Independent Feeding Independent Skiing Instructor Independent Med Delivery whole Wound Care Documentation [...] Readmission: 8 Discharging to Facility/ Agency Name: [facility] Address: [address] [place] [address] [place] [address] Dialysis Facility (if applicable) Name: Address: Dialysis Schedule: Phone: Fax: Senior Technical Support Engineer/Pearl Technician signature: ICIAN SECTION Prognosis: Good Condition at Discharge: Stable Rehab Potential (if transferring to Rehab): Good Recommended Labs or Other Treatments After Discharge: none Physician Certification: I certify the above information and transfer of Sully Perdomo is necessary for the continuing treatment of the diagnosis listed and that she requires Half-Way Facility for less 30 days. Update Admission [...] sent through Care Everywhere. * Cervical Strain (Djiboutian) * Nose Fracture (Djiboutian) * Head Injury: Closed: General Info (Djiboutian) documented in this encounter History of Present Illness * Morena Moses PTA - 06/14/2019 10:22 AM EDT Physical Therapy Facility/Department: [facility] 1E MED SURG Daily Treatment Note [...] 2-part intertrochanteric fractureof right femur, initial encounter ([facility]). Diagnoses of Right hip pain, Fall from ground level, Abnormal nuclear stress test, and Closed 2-part intertrochanteric fracture of proximal end of right femur, initial encounter ([facility]) were also pertinent to this visit. has a past medical history of Arthritis, Back pain, Chronic cervical pain, Chronic pain of left hand, Hypertension, and Knee pain, right. has a past surgical history that includes Tonsillectomy; Appendectomy; Elbow surgery; sinus surgery; Hemorrhoid surgery; Diagnostic [facility] Specialist Procedure (06/01/2019); shoulder surgery; and hip surgery [...] 06/13/2019 11:40 AM EDT Occupational Therapy Facility/Department: [facility] MED SURG Daily Treatment Note NAME: Sully Perdomo : 1955 Date of Service: 06/13/2019 Discharge Recommendations: IP Rehab, Continue to assess pending progress(vs [facility]) Attempt to treat. Pt awake in bed and states that her daughter is on her way with lunch and pt requests to be allowed to visit and eat with her daughter. Pt request to be seen later if she is not discharged to SNF today. Will continue to follow and attempt to treat again. LASHAY [place] * Morena Moses PTA - 06/13/2019 8:58 AM EDT Physical Therapy Facility/Department: [facility] MED SURG Daily Treatment Note NAME: Sully A Conor : 1955 Date of Service: 06/13/2019 Discharge Recommendations: Continue to assess pending progress, Rehab Assessment Assessment: Pt making gradual gains [...] 2-part intertrochanteric fractureof right femur, initial encounter ([facility]). Diagnoses of Right hip pain, Fall from ground level, Abnormal nuclear stress test, and Closed 2-part intertrochanteric fracture of proximal end of right femur, initial encounter ([facility]) were also pertinent to this visit. has a past medical history of Arthritis, Back pain, Chronic cervical pain, Chronic pain of left hand, Hypertension, and Knee pain, right. has a past surgical history that includes Tonsillectomy; Appendectomy; Elbow surgery; sinus surgery; Hemorrhoid surgery; Diagnostic Card[facility] Specialist Procedure (06/01/2019); shoulder surgery; and hip surgery [...] Henriquez MD - 06/13/2019 6:32 AM EDT [facility] 1E MED SURG [address] [facility] [address] Dept: [phone] Loc: [phone] Orthopedic Progress Note Name: Sully Perdomo Date:06/13/2019 Attending:Foreign Fenton, * Subjective Able to weight bear on the right yesterday. Objective Vitals: Vitals: 06/12/19 1717 06/12/19 1949 06/12/19 2313 06/13/19 0424 BP: 128/61 109/73 133/67 (!) 145/73 Pulse: 70 73 66 80 Resp: 18 16 Temp: 99.1 F (37.3 C) [...] PLT 320 258 276 Recent Labs 06/11/19 015 NA 140 K 3.7 CL 107 CO2 23 BUN 12 CREATININE 0.65 CALCIUM 9.2 Recent Labs 06/11/19 015 INR 1.0 No results for input(s): SEDRATE, CRP in the last 72 hours. No results for input(s): HCG in the last 72 hours. Assessment Sully is a 63 y.o.female s/p 10/5 Intertan nailing of right hip Plan WBAT DVT prophylaxis-ASA 81 mg BID Follow up 2wks Ortho will sign off at this time. Please page the resident applications project manager with issues * Elma Marroquin RD, MILO - 06/12/2019 3:30 PM EDT Nutrition screen complete. Chart/labs reviewed. Pt assigned level one for nutrition care DTR to monitor and follow up * Ana Ordonez OTA - 06/12/2019 11:16 AM EDT Occupational Therapy Facility/Department: [facility] MED SURG Daily Treatment Note NAME: Sully Perdomo : 1955 Date of Service: 06/12/2019 Discharge Recommendations: IP Rehab, Continue to assess pending progress(vs [facility]) Assessment Assessment: Pt in 03/16 [...] 2-part intertrochanteric fractureof right femur, initial encounter ([facility]). Diagnoses of Right hip pain, Fall from ground level, Abnormal nuclear stress test, and Closed 2-part intertrochanteric fracture of proximal end of right femur, initial encounter ([facility]) were also pertinent to this visit. has a past medical history of Arthritis, Back pain, Chronic cervical pain, Chronic pain of left hand, Hypertension, and Knee pain, right. has a past surgical history that includes Tonsillectomy; Appendectomy; Elbow surgery; sinus surgery; Hemorrhoid surgery; Diagnostic Card[facility] Specialist Procedure (06/01/2019); shoulder surgery; and hip surgery [...] instructed on use of sock aid and community fundraiser. Pt had never used one before. Cues [...] 06/12/2019 10:56 AM EDT Physical Therapy Facility/Department: [facility] MED SURG Daily Treatment Note NAME: [...] 2-part intertrochanteric fractureof right femur, initial encounter ([facility]). Diagnoses of Right hip pain, Fall from ground level, Abnormal nuclear stress test, and Closed 2-part intertrochanteric fracture of proximal end of right femur, initial encounter ([facility]) were also pertinent to this visit. has a past medical history of Arthritis, Back pain, Chronic cervical pain, Chronic pain of left hand, Hypertension, and Knee pain, right. has a past surgical history that includes Tonsillectomy; Appendectomy; Elbow surgery; sinus surgery; Hemorrhoid surgery; Diagnostic Card[facility] Specialist Procedure (06/01/2019); shoulder surgery; and hip surgery [...] May MD - 06/12/2019 7:16 AM EDT [facility] 1E MED SURG [address] [facility] [address] Dept: [phone] Loc: [phone] Orthopedic Progress Note Name: Sully Perdomo Date:06/12/2019 [...] 06/11/2019 2:49 PM EDT Physical Therapy Facility/Department: [facility] MED SURG Initial Assessment NAME: Sully [...] surgery; sinus surgery; Hemorrhoid surgery; Diagnostic Card[facility] Specialist Procedure (06/01/2019); shoulder surgery; and hip surgery [...] Assistance: Independent(no device) Transfer Assistance: Independent Active General Car Yard Supervisor: Yes Additional Comments: pt may be staying [...] falls, Left in chair OutComes Score AM-[facility] Mobility Inpatient How much difficulty turning over [...] 3-5 steps with a railing?: A Lot -[facility] Inpatient Mobility Raw Score : 17 [facility] Inpatient T-Scale Score : 42.13 Mobility Inpatient CMS 0-100% Score: 50.57 Mobility Inpatient CMS G-Code Modifier : CK [facility] Score [facility] Inpatient Mobility Raw Score : 17 (06/11/191436) [facility] Inpatient T-Scale Score : 42.13 (06/11/191436) Mobility [...] 21 Bernice Dobson PT, DPT * Anjelica Cohen, OTR/Sandra - 06/11/2019 2:34 PM EDT Occupational Therapy Occupational Therapy Initial Assessment Date: 06/11/2019 Patient Name: Sully Perdomo : 1955 Date of Service: 06/11/2019 Discharge Recommendations: IP Rehab, Continue to assess pending progress(vs [facility]) OT Equipment Recommendations Other: TBD [...] Decision Making: Medium Complexity History: pt presents [facility] with fall at home d/t dizziness, pt [...] surgery; sinus surgery; Hemorrhoid surgery; Diagnostic Card[facility] Specialist Procedure (06/01/2019); shoulder surgery; and hip surgery [...] Assistance: Independent(no device) Transfer Assistance: Independent 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 Goals and/or treatment plan was established in collaboration with patient/family/other representatives. AM-PAC Score [facility] Inpatient Daily Activity Raw Score: 16 (06/11/191433) [facility] Inpatient ADL T-Scale Score : 35.96 (06/11/191433) ADL Inpatient CMS 0-100% Score: 53.32 (06/11/191433) ADL Inpatient [facility] G-Code Modifier : CK (06/11/191433) Goals Short [...] intertrochanteric fracture of right femur, initial encounter ([facility])- Primary Right hip pain Pain in joint, pelvic region and thigh Fall from ground level Abnormal nuclear stress test Other nonspecific abnormal cardiovascular system function study Closed right hip fracture, initial encounter ([facility]) Diagnosis Closed displaced intertrochanteric fracture of right [...] sister Chronic obstructive pulmonary disease Unk nown Family Member Condition Father Mother Chief Complaint and Reason for Visit Chief [...] W F/U & Test Results September 30, 2 025 7:39am CANCER October 18, 2024 8:08am [...] 2024 12:4 1pm Chief Complaint Admit Date INT RAD December 19, 2024 8:0 4am FEVER February 10, 2025 7:24a m COPD March 07, 2025 6:45a m Chief Complaint Admit Date INT RAD December 19, 2024 8:0 4am FEVER February 10, 2025 7:24a m COPD March 07, 2025 6:45a m Solitary pulmonary nodule March 17 8:47am Chief Complaint Admit Date INT RAD December 19, 2024 8:0 4am FEVER February 10, 2025 7:24a m COPD March 07, 2025 6:45a m Solitary pulmonary nodule March 17 8:47am 3 M FU March 23, 2025 8:44 am Reason for Referral Specialty Diagnoses / Procedures Referred By Arianna aguirre Referred To Contact Cardiology Diagnoses Emphysema, unspecified (HCC) Procedures Stress echocardiogram (TTE) exercise with contrast, bubble, strain, and 3D PRN NJ ECHO TTHRC R-T 2D W/WO M-MODE COMPLETE REST&ST NJ ECHO TTHRC R-T 2D W/WO M-MODE REST&STRS CONT ECG NJ DOPPLER ECHOCARD PULSE WAVE W/SPECTRAL DISPLAY NJ DOP ECHOCARD COLOR FLOW VELOCITY MAPPING NJ CV STRS TST XERS&/OR RX CONT ECG W/O I&R NJ CV STRS TST XERS&/OR RX CONT ECG TRCG ONLY NJ CV STRS TST XERS&/OR RX CONT ECG I&R ONLY Jeremiah Martínez MD [address] [facility] [address] [place] [phone] Referral ID Status Reason Start Date Expiration Date V isits Requested Visits Authorized [id number] Authorized 06/29/2023 06/28/2024 1 1 Specialty Diagnoses / Procedures Referred By Arianna aguirre Referred To Contact Radiology Diagnoses Chronic sinusitis, unspecified Procedures MR brain wo contrast Jeremiah Martínez MD [address] [facility] [address] [place] [phone] Referral ID Status Reason Start Date Expiration Date Visits Re quested Visits Authorized [id number] Closed 11/06/2023 11/05/2024 1 1 Specialty Diagnoses / Procedures Referred By Arianna aguirre Referred To Contact Radiology Diagnoses Abnormal results of function studies of other organs and systems Procedures MR brain w and wo contrast MR brain w contrast Jeremiah Martínez MD [address] [place] [address] Referral ID Status Reason Start Date Expiration Date Visits Re quested Visits Authorized [id number] Closed 05/05/2024 07/04/2024 1 1 Additional Source Comments Reason for Visit (unrecogniz ed section and content) Reason Comments Dizziness Hip Pain Reason Comments Head Injury Fall Reason Comments Fall Head Injury Reason Comments Wrist Injury Reason Comments Shoulder Injury Reason Comments New Patient Right Specialty Diagnoses / Procedures Referred By Contac t Referred To Contact Sports Medicine Diagnoses Pain in right knee Procedures NJ OFFICE/OUTPATIENT NEW HIGH MDM 60-74 MINUTES Jeremiah Martínez MD [address] [place] [phone] Phillip Tobar MD [address] [place] [address] Referral ID Status Reason Start Date Expiration Date V isits Requested Visits Authorized [id number] Closed Specialty Services Required 11/24/2022 11/24/2023 1 [...] with contrast, bubble, strain, and 3D PRN NJ ECHO TTHRC R-T 2D W/WO M-MODE COMPLETE REST&ST NJ ECHO TTHRC R-T 2D W/WO M-MODE REST&STRS CONT ECG NJ DOPPLER ECHOCARD PULSE WAVE W/SPECTRAL DISPLAY NJ DOP ECHOCARD COLOR FLOW VELOCITY MAPPING NJ CV STRS TST XERS&/OR RX CONT ECG W/O I&R NJ CV STRS TST XERS&/OR RX CONT ECG TRCG ONLY NJ CV STRS TST XERS&/OR RX CONT ECG I&R ONLY Jeremiah Martínez MD [address] [place] [phone] Referral ID Status Reason Start Date Expiration Date V isits Requested Visits Authorized [id number] Authorized 06/29/2023 06/28/2024 1 1 Reason Comments Refill Request Reason Onset Date Comments Appointment Request 09/11/2023 Specialty Diagnoses / Procedures Referred By Contac t Referred To Contact Radiology Diagnoses Chronic sinusitis, unspecified Procedures MR brain wo contrast Jeremiah Martínez MD [address] [place] [phone] Referral ID Status Reason Start Date Expiration Date Visits Re quested Visits Authorized [id number] Closed 11/06/2023 11/05/2024 1 1 Reason Onset Date Comments OTher 01/13/2024 Inform Provider Reason Comments New Patient Sinus polyp Specialty Diagnoses / Procedures Referred By Arianna t Referred To Contact Otolaryngology Diagnoses Other polyp of sinus Procedures CLINIC-OTHER Jeremiah Martínez MD [address] [facility] [address] [place] [address] [facility] [address] [place] [address] Referral ID Status Reason Start Date Expiration Date V isits Requested Visits Authorized [id number] Pending Review 11/24/2023 11/23/2024 1 1 Specialty Diagnoses / Procedures Referred By Arianna aguirre Referred To Contact Radiology Diagnoses Abnormal results of function studies of other organs and systems Procedures MR brain w and wo contrast MR brain w contrast Jeremiah Martínez MD [address] [place] [address] Referral ID Status Reason Start Date Expiration Date Visits Re quested Visits Authorized [id number] Closed 05/05/2024 07/04/2024 1 1 Reason Comments Dizziness Facial Pain Reason Comments Appointment Call for appointment time and verification of instructional letter for 01/19/25 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 Diaz office Future Appointment New Patient [place] Any Reason Comments Patient Update Reason Comments Appointment Leading Reach incomi ng referral Reason Comments Fall Reason Comments Shortness of Breath INFORMATION SOURCE (unrecogn ized section and content) DATE CREATED AUTHOR 2019 [facility] DATE CREATED AUTHOR AUTHOR'S ORGANIZ ATION 06/16/2022 [facility] DATE CREATED AUTHOR AUTHOR'S ORGANIZ ATION 04/18/2025 [facility] DATE CREATED AUTHOR AUTHOR'S ORGANIZ ATION 05/06/2025 [facility] DATE CREATED AUTHOR AUTHOR'S ORGANIZ ATION 05/20/2025 [facility] DATE CREATED AUTHOR AUTHOR'S ORGANIZ ATION 06/15/2025 [facility] Ordered Prescriptions (unrec ognized section and [...] RN)1109 (Stopped - Provider: Alona Mendosa RN) Scheduled Medication Order 05/12/2025 05/13/2025 05/14/2025 HYDROcodone-acetaminophen ([place]) 5-325 MG per tablet 1 tablet (COMPLETED) 1 tablet, Oral, Once, On Thu05/14/25 at 0230, For 1 dose, Maximum dose of acetaminophen is 4000 mg from all sources in 24 hours. 0244 (Given - Provid er: Hortencia Lyons RN) HYDROcodone-acetaminophen ([place]) 5-325 MG per tablet 1 tablet (COMPLETED) 1 tablet, Oral, Once, On Thu05/14/25 at 0415, For 1 dose, Maximum dose of acetaminophen is 4000 mg from all sources in 24 hours. 0415 (Given - Provid er: Hortencia Lyons RN) PRN Medication Order 05/12/2025 05/13/2025 05/14/2025 iopamidol (Isovue-370) 76 % injection 75 mL (COMPLETED) 75 mL, IntraVENous, IMG once PRN, contrast, Starting on Thu05/14/25 at 0344, For 1 dose 0345 (Given - Provid er: Lucretia Seals, RT (R)(CT)) Scheduled Medication Order 05/15/2025 05/16/2025 05/17/2025 Lidocaine 4 % patch 1 patch 1 patch, TransDERmal, Administer over 12 Hours, Once, On Thu05/17/25 at 2230, For 1 dose, Apply patch to left ribs. Patch may remain in place for up to 12 hours in any 24 hour period. 2241 (Medication Kurtis lied - Provider: Zulema Bowen RN)235 (Due: Medication Removed - Provider: Automatic Discharge Provider - Comment: Time automatically adjusted from order being discontinued) morphine injection 4 mg (COMPLETED) 4 mg, IntraVENous, Once, On Thu05/17/25 at 2230, For 1 dose 2241 (Given - Provid er: Zulema Bowen RN) ondansetron (Zofran) injection 4 mg (COMPLETED) 4 mg, IntraVENous, Once, On Thu05/17/25 at 2230, For 1 dose 2242 (Given - Provid er: Zulema Bowen RN) predniSONE (Deltasone) tablet 40 mg (COMPLETED) 40 mg, Oral, Once, On Thu05/17/25 at 2335, For 1 dose 2342 (Given - Provid er: Justina Frazier, ELIZABETH) Care Teams (unrecognized sec tion and content) Costumed Character Relationship Specialty Start Date End Date Jeremiah Martínez MD [address] [place] [phone] PCP - General 02/25/17 Team Status: Active Member Role Status Dates Dr. Goldy Deleon MD Family Provider Active Dr. Jeremiah Martínez MD Primary Care Provider Active Team Status: Inactive Member Role Status Dates Dr. Jeremiah Martínez MD Primary Care Provider Active Ana Gilman HUMAN RESOURCES HR GENERALIST, HUMAN RESOURCES HR GENERALIST-C Attending Provider Active Costumed Character Relationship Specialty Start Date End Date Jeremiah Martínez MD [address] [place] [address] PCP - General 02/25/17 Costumed Character Relationship Specialty Start Date End Date Jeremiah Martínez MD [address] [place], [place] [id number] PCP - General 02/25/17 Costumed Character Relationship Specialty Start Date End Date Jeremiah Martínez MD [address] [place] [id number] PCP - General 02/25/17 Costumed Character Relationship Specialty Start Date End Date Jeremiah Martínez MD [address] [place] [id number] PCP - General 02/25/17 Costumed Character Relationship Specialty Start Date End Date Jeremiah Martínez MD [address] [place] [id number] PCP - General 02/25/17 Costumed Character Relationship Specialty Start Date End Date Jeremiah Martínez MD [address] [facility] [address] [place] [address] PCP - General Family Medicine 11/17/22 Costumed Character Relationship Specialty Start Date End Date Jeremiah Martínez MD [address] [facility] [address] [place] [address] PCP - General Family Medicine 11/17/22 Costumed Character Relationship Specialty Start Date End Date Jeremiah Martínez MD [address] [address] PCP - General Family Medicine 11/17/22 Costumed Character Relationship Specialty Start Date End Date Jeremiah Martínez MD [address] [place] [address] PCP - General 02/25/17 Costumed Character Relationship Specialty Start Date End Date Jeremiah Martínez MD [address] [place] [address] PCP - General 02/25/17 Costumed Character Relationship Specialty Start Date End Date Jeremiah Martínez MD [address] [place] [address] PCP - General 02/25/17 Costumed Character Relationship Specialty Start Date End Date Jeremiah Martínez MD [address] [address] PCP - General Family Medicine 11/17/22 Team Status: Inactive Member Role Status Dates Dr. Jeremiah Martínez MD Primary Care Provider Active Dr. Hai Hess MD Attending Provider, Julianna casillas Provider Active Costumed Character Relationship Specialty Start Date End Date Jeremiah Martínez MD [address] [place] [address] PCP - General 02/25/17 Costumed Character Relationship Specialty Start Date End Date Jeremiah Martínez MD [address] [place] [address] PCP - General 02/25/17 Team Status: Inactive Member Role Status Dates Dr. Jeremiah Martínez MD Primary Care Provider Active Dr. Trevor Issa DO Attending Provider, Referring Pro vider Active Costumed Character Relationship Specialty Start Date End Date Jeremiah Martínez MD [address] [place] [address] [address] [place] [address] PCP - General Family Medicine 11/17/22 Team Status: Inactive Member Role Status Dates Dr. Jeremiah Martínez MD Primary Care Provider, Referr ing Provider Active Ana Gilman [employer] HR GENERALIST, [employer] HR GENERALIST-C Attending Provider Active Team Status: Inactive Member Role Status Dates Dr. Jeremiah Martínez MD Primary Care Provider Active Ana Gilman [employer] HR GENERALIST, [employer] HR GENERALIST-C Attending Provider, Referrin g Provider Active Costumed Character Relationship Specialty Start Date End Date Jeremiah Martínez MD [address] [place] [id number] PCP - General 02/25/17 Costumed Character Relationship Specialty Start Date End Date Jeremiah Martínez MD [address] [place] [id number] PCP - General 02/25/17 Costumed Character Relationship Specialty Start Date End Date Jeremiah Martínez MD [address] [place] [id number] PCP - General 02/25/17 Costumed Character Relationship Specialty Start Date End Date Jeremiah Martínez MD [address] [place] [id number] PCP - General 02/25/17 Costumed Character Relationship Specialty Start Date End Date Jeremiah Martínez MD [address] [facility] [address] [place] [address] PCP - General Family Medicine 11/17/22 Costumed Character Relationship Specialty Start Date End Date Jeremiah Martínez MD [address] [place] [id number] PCP - General 02/25/17 Costumed Character Relationship Specialty Start Date End Date Jeremiah Martínez MD [address] [place] [id number] PCP - General 02/25/17 Costumed Character Relationship Specialty Start Date End Date Jeremiah Martínez MD [address] [place] [id number] PCP - General 02/25/17 Costumed Character Relationship Specialty Start Date End Date Jeremiah Martínez MD [address] [place] [id number] PCP - General 02/25/17 Costumed Character Relationship Specialty Start Date End Date Jeremiah Martínez MD [address] [place] [id number] PCP - General 02/25/17 Team Status: Active Member Role Status Dates Dr. Jeremiah Martínez MD Primary Care Provider Active Team Status: Inactive Member Role Status Dates Dr. Jeremiah Martínez MD Primary Care Provider Active Start: August 30, 2024 End: August 30, 2024 Dr. Jeremiah Martínez MD Referring Provider Active Start: August 30, 2024 End: August 30, 2024 Ana Gilman [employer] HR GENERALIST, [employer] HR GENERALIST-C Attending Provider Active Start: August 30, 2024 End: August 30, 2024 Team Status: Inactive Member Role Status Dates Dr. Jeremiah Martínez MD Primary Care Provider Active Start: September 23, 2024 End: September 23, 2024 Ana Gilman [employer] HR GENERALIST, [employer] HR GENERALIST-C Attending Provider Active Start: September 23, 2024 End: September 23, 2024 Ana Gilman [employer] HR GENERALIST, [employer] HR GENERALIST-C Referring Provider Active Start: September 23, 2024 [...] 2024 End: September 30, 2024 Ana Gilman [employer] HR GENERALIST, [employer] HR GENERALIST-C Attending Provider Active Start: September 30, 2024 End: September 30, 2024 Team Status: Inactive Member Role Status Dates Dr. Jeremiah Martínez MD Primary Care Provider Active Start: October 18, 2024 End: October 18, 2024 Ana Gilman [employer] HR GENERALIST, [employer] HR GENERALIST-C Attending Provider Active Start: October 18, 2024 End: October 18, 2024 Ana Gilman [employer] HR GENERALIST, [employer] HR GENERALIST-C Referring Provider Active Start: October 18, 2024 End: October 18, 2024 Team Status: Inactive Member Role Status Dates Dr. Jeremiah Martínez MD Primary Care Provider Active Start: November 08, 2024 End: November 08, 2024 Dr. Jeremiah Martínez MD Referring Provider Active Start: November 08, 2024 End: November 08, 2024 Ana Gilman [employer] HR GENERALIST, [employer] HR GENERALIST-C Attending Provider Active Start: November 08, 2024 End: November 08, 2024 Team Status: Inactive Member Role Status Dates Dr. Jeremiah Martínez MD Primary Care Provider Active Start: December 19, 2024 End: December 19, 2024 Ana Gilman [employer] HR GENERALIST, H[employer] HR GENERALIST-C Attending Provider Active Start: December 19, 2024 End: December 19, 2024 Ana Gilman [employer] HR GENERALIST, [employer] HR GENERALIST-C Referring Provider Active Start: December 19, 2024 End: December 19, 2024 Costumed Character Relationship Specialty Start Date End Date Jeremiah Martínez MD [address] [facility] [address] [place] [address] PCP - General Family Medicine 11/17/22 Costumed Character Relationship Specialty Start Date End Date Jeremiah Martínez MD [address] [facility] [address] [place] [address] PCP - General Family Medicine 11/17/22 Costumed Character Relationship Specialty Start Date End Date Jeremiah Martínez MD [address] [place] [id number] PCP - General 02/25/17 Costumed Character Relationship Specialty Start Date End Date Jeremiah Martínez MD [address] [facility] [address] [place] [address] PCP - General Family Medicine 11/17/22 Team Status: Inactive Member Role Status Dates Dr. Jeremiah Martínez MD Primary Care Provider Active Start: February 10, 2025 End: February 10, 2025 Ana Gilman [employer] HR GENERALIST, [employer] HR GENERALIST-C Attending Provider Active Start: February 10, 2025 End: February 10, 2025 Ana Gilman [employer] HR GENERALIST, [employer] HR GENERALIST-C Referring Provider Active Start: February 10, 2025 End: February 10, 2025 Costumed Character Relationship Specialty Start Date End Date Jeremiah Martínez MD [address] [place] [id number] PCP - General 02/25/17 Team Status: Active Member Role/Relationship Status Dates Dr. Jeremiah Martínez MD Primary Care Provider Active Team Status: Inactive Member Role/Relationship Status Dates Dr. Jeremiah Martínez MD Primary Care Provider Active Start: December 19, 2024 End: December 19, 2024 Ana Gilman [employer] HR GENERALIST, [employer] HR GENERALIST-C Attending Provider Active Start: December 19, 2024 End: December 19, 2024 Ana Gilman [employer] HR GENERALIST, [employer] HR GENERALIST-C Referring Provider Active Start: December 19, 2024 End: December 19, 2024 Team Status: Inactive Member Role/Relationship Status Dates Dr. Jeremiah Martínez MD Primary Care Provider Active Start: February 10, 2025 End: February 10, 2025 Ana Gilman [employer] HR GENERALIST, [employer] HR GENERALIST-C Attending Provider Active Start: February 10, 2025 End: February 10, 2025 Ana Gilman [employer] HR GENERALIST, H[employer] HR GENERALIST-C Referring Provider Active Start: February 10, 2025 End: February 10, 2025 Team Status: Inactive Member Role/Relationship Status Dates Dr. Jeremiah Martínez MD Primary Care Provider Active Start: March 07, 2025 End: March 07, 2025 Ana Gilman [employer] HR GENERALIST, H[employer] HR GENERALIST-C Attending Provider Active Start: March 07, 2025 End: March 07, 2025 Ana Gilman [employer] HR GENERALIST, H[employer] HR GENERALIST-C Referring Provider Active Start: March 07, 2025 End: March 07, 2025 Team Status: Inactive Member Role/Relationship Status Dates Dr. Jeremiah Martínez MD Primary Care Provider Active Start: March 17, 2025 End: March 17, 2025 Ana Gilman [employer] HR GENERALIST, H[employer] HR GENERALIST-C Attending Provider Active Start: March 17, 2025 End: March 17, 2025 Ana Gilman [employer] HR GENERALIST, H[employer] HR GENERALIST-C Referring Provider Active Start: March 17, 2025 End: March 17, 2025 Team Status: Inactive Member Role/Relationship Status Dates Dr. Jeremiah Martínez MD Primary Care Provider Active Start: March 23, 2025 End: March 23, 2025 Dr. Jeremiah Martínez MD Referring Provider Active Start: March 23, 2025 End: March 23, 2025 Ana Gilman [employer] HR GENERALIST, H[employer] HR GENERALIST-C Attending Provider Active Start: March 23, 2025 End: March 23, 2025 Costumed Character Relationship Specialty Start Date End Date Jeremiah Martínez MD [address] [place] [address] 8 [place] [address] PCP - General Family Medicine 11/17/22 Costumed Character Relationship Specialty Start Date End Date Jeremiah Martínez MD [address] [place] [id number] PCP - General 02/25/17 Costumed Character Relationship Specialty Start Date End Date Jeremiah Martínez MD [address] [place] [address] PCP - General Family Medicine 11/17/22 Costumed Character Relationship Specialty Start Date End Date Jeremiah Martínez MD [address] [place] [id number] PCP - General 02/25/17 Costumed Character Relationship Specialty Start Date End Date Jeremiah Martínez MD [address] [place] [id number] PCP - General 02/25/17 Costumed Character Relationship Specialty Start Date End Date Jeremiah Martínez MD [address] [place] [id number] PCP - General 02/25/17 Costumed Character Relationship Specialty Start Date End Date Jeremiah Martínez MD [address] [place] [id number] PCP - General 02/25/17 Costumed Character Relationship Specialty Start Date End Date Jeremiah Martínez MD [address] [place] [id number] PCP - General 02/25/17 Costumed Character Relationship Specialty Start Date End Date Jeremiah Martínez MD [address] [place] [id number] PCP - General 02/25/17 Source Comments (unrecognize d section and content) In the event this informatio n is protected by the Federal Confidentiality of Alcohol and Drug Abuse Patient Records regulations: The Federal rules restrict any use of the information to criminally investigate or prosecute any alcohol or drug abuse patient.[facility] the event this information is protected by the Federal Confidentiality of Alcohol and Drug Abuse Patient Records regulations: The Federal rules restrict any use of the information to criminally investigate or prosecute any alcohol or drug abuse patient.[facility]In the event this information is protected by the Federal Confidentiality of Alcohol and Drug Abuse Patient Records regulations: The Federal rules restrict any use of the information to criminally investigate or prosecute any alcohol or drug abuse patient.[facility]In the event this information is protected by the Federal Confidentiality of Alcohol and Drug Abuse Patient Records regulations: The Federal rules restrict any use of the information to criminally investigate or prosecute any alcohol or drug abuse patient.[facility]In the event this information is protected by the Federal Confidentiality of Alcohol and Drug Abuse Patient Records regulations: The Federal rules restrict any use of the information to criminally investigate or prosecute any alcohol or drug abuse patient.[facility]In the event this information is protected by the Federal Confidentiality of Alcohol and Drug Abuse Patient Records regulations: The Federal rules restrict any use of the information to criminally investigate or prosecute any alcohol or drug abuse patient.[facility] SouthIn the event this information is protected by the Federal Confidentiality of Alcohol and Drug Abuse Patient Records regulations: The Federal rules restrict any use of the information to criminally investigate or prosecute any alcohol or drug abuse patient.[facility]In the event this information is protected by the Federal Confidentiality of Alcohol and Drug Abuse Patient Records regulations: The Federal rules restrict any use of the information to criminally investigate or prosecute any alcohol or drug abuse patient.[facility]In the event this information is protected by the Federal Confidentiality of Alcohol and Drug Abuse Patient Records regulations: The Federal rules restrict any use of the information to criminally investigate or prosecute any alcohol or drug abuse patient.[facility]In the event this information is protected by the Federal Confidentiality of Alcohol and Drug Abuse Patient Records regulations: The Federal rules restrict any use of the information to criminally investigate or prosecute any alcohol or drug abuse patient.[facility]In the event this information is protected by the Federal Confidentiality of Alcohol and Drug Abuse Patient Records regulations: The Federal rules restrict any use of the information to criminally investigate or prosecute any alcohol or drug abuse patient.[facility] SouthIn the event this information is protected by the Federal Confidentiality of Alcohol and Drug Abuse Patient Records regulations: The Federal rules restrict any use of the information to criminally investigate or prosecute any alcohol or drug abuse patient.[facility]In the event this information is protected by the Federal Confidentiality of Alcohol and Drug Abuse Patient Records regulations: The Federal rules restrict any use of the information to criminally investigate or prosecute any alcohol or drug abuse patient.[facility] SouthIn the event this information is protected by the Federal Confidentiality of Alcohol and Drug Abuse Patient Records regulations: The Federal rules restrict any use of the information to criminally investigate or prosecute any alcohol or drug abuse patient.[facility]In the event this information is protected by the Federal Confidentiality of Alcohol and Drug Abuse Patient Records regulations: The Federal rules restrict any use of the information to criminally investigate or prosecute any alcohol or drug abuse patient.[facility] SouthIn the event this information is protected by the Federal Confidentiality of Alcohol and Drug Abuse Patient Records regulations: The Federal rules restrict any use of the information to criminally investigate or prosecute any alcohol or drug abuse patient.[facility] SouthIn the event this information is protected by the Federal Confidentiality of Alcohol and Drug Abuse Patient Records regulations: The Federal rules restrict any use of the information to criminally investigate or prosecute any alcohol or drug abuse patient.[facility] SouthIn the event this information is protected by the Federal Confidentiality of Alcohol and Drug Abuse Patient Records regulations: The Federal rules restrict any use of the information to criminally investigate or prosecute any alcohol or drug abuse patient.[facility] SouthIn the event this information is protected by the Federal Confidentiality of Alcohol and Drug Abuse Patient Records regulations: The Federal rules restrict any use of the information to criminally investigate or prosecute any alcohol or drug abuse patient.[facility] Goals (unrecognized section and content) Goals may [...] may be documented in an alternate section No Information Available FOR RECORDS PERTAINING TO PATIENTS WHO ARE [...] BE BASED ON THE PRIMARY CLINICAL RECORDS. [facility] [employer] [facility]. provides no warranty or guarantee of the accuracy or completeness of information in this document.
== END | disposition home or self-care (01) ==
LOC: SL 19:55
PROVIDERS: PCP Family Medicine; Referring Provider Nurse Practitioner Acute Care; Visit Provider Nurse Practitioner Acute Care
DX: G47.10 Hypersomnia, unspecified (principal)
CPT/HCPCS: 95810